=== PATIENT | male | born 1955 | race Caucasian/White ===

== ENCOUNTER 2021-09-19 14:27 | Outpatient (CLI) | payer OTHER, SELFPAY ==
--- NOTE | 2021-09-19 14:45 | CRLHL7_ITS ---
For Patients: As a result of the 21st Century Cures Act, medical imaging exams and procedure reports are released immediately into your electronic medical record. You may view this report before your referring provider. If you have questions, please contact your health care provider. EXAM: PET-CT SKULL BASE TO THIGH CLINICAL INFORMATION: 65-yo male with a history non-small cell lung carcinoma of the left lung/Pancoast tumor. Prior chemoradiation. Current systemic immunotherapy with Durvalumab. Patient is referred for further characterization/response assessment. TECHNIQUE: Radiopharmaceutical: 13.66 mCi of 18F-FDG Uptake time: 60 minutes Blood glucose level at the time of injection: 95 mg/dL Field of view: Skull base to mid-thighs Intravenous contrast: Not administered Oral contrast: Not administered CT protocol: The low-dose, free-breathing, noncontrast CT performed as part of this study is designed for the purposes of attenuation correction and lesion localization, and it is neither sufficient, nor it should be substituted for diagnostic purposes. COMPARISON: CT chest 06/06/2021. PET-CT 02/26/2021 FINDINGS: Physiologic background liver standardized uptake value (SUV mean and SUV max) reported for comparison between PET studies: 2.6 and 3.0. Visualized head and neck: Mildly asymmetric bilateral thyroid uptake is nonspecific, possibly related to thyroiditis. SUV max right thyroid lobe 4.8. Head and neck lymph nodes: No abnormal uptake. Focal nodular uptake adjacent to the distal right clavicle is nonspecific, possibly vascular or a small lymph node, SUV max 3.0. Lungs: Large bilateral apical bullae with scattered fibrotic changes. Persistent focal uptake within a posteromedial pleural based mass in the left upper lobe, 4.7 x 2.2 cm, SUV max 5.5 (fused PET-CT image 71). This mass measured 5.1 x 2.3 cm on the recent comparison chest CT (series 2, image 26). Residual uptake is adjacent to and potentially involving the costovertebral margin of the left 2nd and left posterior 3rd rib suspicious for residual viable tumor. Mild uptake in the adjacent soft tissues is presumed post therapy related. For reference, left upper lobe/apical lung mass measured 6.7 x 3.0 cm on prior PET-CT, SUV max 17.9. -additional lung findings include several sub- 4 mm nodules in the right middle lobe (fused PET-CT image 134) and medial right base (fused PET-CT image 138) without suspicious uptake and not clearly visualized on comparison chest CT. Probably inflammatory. Posteromedial left lower lobe ground-glass opacity with uptake is more than likely inflammatory, SUV max 2.6. Prior anterior pleural-based left upper lobe nodule has resolved in response to targeted radiation therapy. Thoracic lymph nodes: No progressive hypermetabolic mediastinal or hilar lymphadenopathy. Variable uptake within partially calcified paratracheal, subcarinal and hilar/perihilar lymph nodes. For example: -lower right paratracheal lymph node, SUV max 2.8, previously 1.9. -subcarinal lymph node, SUV max 2.1, previously 1.9. -left perihilar rizwana uptake, not measurable, SUV max 3.1., Previously 2.0 Other chest findings: Physiologic myocardial uptake. Scattered coronary vascular and thoracic aortic calcifications. Hepatobiliary: No abnormal uptake. Tiny left lobe hypodensity is too small to fully characterize. Spleen: No abnormal uptake. Pancreas: No abnormal uptake. Adrenals: No abnormal uptake. Kidneys and bladder: No abnormal uptake. Bladder is underdistended giving the appearance of mild wall thickening. Bowel and peritoneum: Increased uptake within the gastric body and fundus is non focal, SUV max 4.6. Uptake is nonspecific, potentially reactive/inflammatory or related to gastritis. Some uptake extends into the lower esophagus without noncontrast CT abnormality. No suspicious small bowel uptake. Similar uptake in the lower anal canal and sphincter level is nonspecific, probably physiologic. Pelvic organs: Moderate prostate enlargement. Midline inferior prostate uptake not present on the prior study likely reflects activity in the prostatic urethra. Milder right paramidline uptake within the prostate apex is nonspecific. Abdominopelvic lymph nodes: No hypermetabolic abdominopelvic lymph nodes. Musculoskeletal, soft tissues, skin: Postradiation change with mild uptake involves the left neck, left posterior shoulder and left anterior chest soft tissues. There are chronic bony changes with sclerosis of the left posterior 3rd rib with mild uptake related to post therapy change, SUV max 2.9. Focal uptake within or adjacent to the costovertebral margin left 2nd rib and costovertebral margin left 3rd rib is suspicious for residual viable disease. For example: -costovertebral margin left 3rd rib, SUV max 5.5 (fused PET-CT image 70). -degenerative-type uptake otherwise involves the shoulders, spine and hips. Other: Diffuse aortoiliac atherosclerotic vascular calcifications. Similar mild infrarenal abdominal aortic aneurysm, 3 2 x 3.2. Prior lower ventral abdomen/right inguinal hernia repair with mesh placement. Fat containing left inguinal hernia. Right hydrocele. IMPRESSION: 1. Post radiation changes involving the left neck, left shoulder and left upper chest with decreased overall size and uptake of a posteromedial left upper lobe/apical lung mass compared to prior PET-CT and mildly decreased size compared to the more recent interval chest CT dated 06/06/2021. Persistent focal uptake adjacent to or involving the costovertebral margin of the left 2nd and left 3rd rib is nonspecific though suspicious for residual viable tumor. 2. Variable mild uptake within mediastinal and hilar/perihilar lymph nodes, some calcified is nonspecific, possibly reactive/inflammatory. No progressive hypermetabolic lymphadenopathy in the chest or axillary regions. 3. No distant sites of tracer avid disease in the neck or solid organs of the upper abdomen. Increased uptake within the body and fundus of the stomach could potentially be reactive/inflammatory or related to gastritis. Attention on follow-up. 4. Mildly asymmetric bilateral thyroid uptake potentially related to thyroiditis in the setting of immunotherapy. 5. Other nonacute findings as detailed in the body of the report. Dictated by Jarad Escalona MD @ 09/22/2021 10:16:16 PM (Electronically Signed)
== END 2021-09-19 14:28 | disposition home or self-care (01) ==
LOC: RAD 14:29
PROVIDERS: PCP Nurse Practitioner Family; Visit Provider Internal Medicine Hematology & Oncology
DX: C34.12 Malignant neoplasm of upper lobe, left bronchus or lung (principal)
CPT/HCPCS: 78815; A9552

== ENCOUNTER 2021-10-02 07:30 | Outpatient (RCR) | payer OTHER, SELFPAY ==
--- OUTSIDE RECORDS SUMMARY | 2021-09-06 14:40 | XMS_ITS | Continuity of Care Document ---
:1955 Author Support Name Relationship Address Phone FARR Unavailable Unavailable Unavailable [facility] Team Providers Name Role Phone ISELA Cid CNP E Primary Care Physician MD Luis Enrique Attending Physician Unavailable Allergies, Adverse Reactions, Alerts No known allergies Social History Smoking Status Unknown if ever smoked Additional Data Assigned Sex Male Problems Active Problems Medical Problem Onset Date Status Non-small cell cancer of left 2020 Active lung Encounter for screening for Active COVID-19 Medications Medication Status Dose Units Route Directions Qty Days Start End Ins tructions Date Date Acetaminophen Active 325-6 MG PO Every 4 100 NO MORE THAN (Tylenol) 325 50 Hours as 400 0 MG/DAY Mg TAB needed Budesonide-Fo Active 2 PUFF INH Twice A Day 15 July rmoterol , Fumarate 2021 (Symbicort) 8:46am 80 Mcg/4.5 Mcg INH Bupropion Hcl Active 300 MG PO Daily 12 August (Wellbutrin , Xl) 300 Mg 2021 TAB 8:22am Cyclobenzapri Active 10 MG PO Three Times 30 ne Hcl A Day as needed Durvalumab Active 500 MG IV As Directed (Imfinzi) 500 as needed Mg/10 Ml INJ Gabapentin Active 100 MG PO Bedtime 90 Levothyroxine Active 100 MCG PO Daily 30 August Sodium 2021 9:03am Lisinopril Active 10 MG PO Daily 30 Magnesium Active 400 MG PO Daily 100 August Oxide 2021 8:50am Zolpidem Active 5 MG PO Bedtime 28 August Tartrate , (Ambien) 5 Mg 2021 TAB 8:51am Gabapentin Discontin 100-2 MG PO Twice A Day 90 August ued 00 2021 8:17am Guaifenesin Discontin 600 MG PO Twice A Day 60 Rc h (Mucinex) 600 ued 30, Mg TABSR 2021 2:00pm Levothyroxine Discontin 50 MCG PO Daily 60 60 July In crease current dose to 50 mcg, 2 - 25 mcg tabs per day. Sodium ued , Will need a n ew prescription with a new pill dosage when 2021 2021 current home s upply is gone. 5:46pm 9:03am Levothyroxine Discontin 50 MCG PO Daily July Ne w prescription dose!! 50 mcg daily. Begin when current Sodium ued , supply of 25 mcg tabs is gone. Take 1 hour before breakfast 2021 2021 on empty stoma ch. 5:46pm 8:17am Levothyroxine Discontin 25 MCG PO Daily 60 60 July Sodium ued , 2021 12:50pm 5:46pm Lorazepam Discontin 0.5-1 MG PO Every 4 March [place] N ued Hours as , Nausea/vomi ti needed for 2021 2021 ng Nausea/Vomi 4:15pm 2:00pm ting Methylprednis Discontin 1 TAB PO As Directed May DIRECTED olone (Medrol ued y , ON P ACKAGE Dosepak) 4 Mg 2021 2021 JOSE 12:07pm 2:00pm Prochlorperaz Discontin 10 MG PO Every 8-12 14 April M arch PRN ine Maleate ued Hours as , Nause a/vomiti needed for 2021 2021 ng Nausea/Vomi 4:15pm 2:00pm ting Senna/Docusat Discontin 1 TAB PO Twice A Day March e Sodium ued , (Senna S) 8.6 2021 2021 Mg/50 Mg TAB 10:04am 2:00pm Procedures Procedure Date Performed Status TTE W/DOPPLER COMPLETE August 14, 2021 completed X-RAY EXAM CHEST 2 VIEWS August 14, 2021 completed MRI BRAIN STEM W/O & W/DYE August 16, 2021 completed SUPPLY August 16, 2021 completed 2D echocardiography with color August 14, 2021 completed flow Doppler imaging XR chest, 2 views August 14, 2021 completed Magnetic resonance imaging of August 16, 2021 completed brain without then with contrast Relevant Diagnostic Tests and/or Laboratory Data Laboratory Results Test Date/Time Result Interpretation Reference Result Comment Performing Range Site White Blood September 05, 7.07 5.00-10.00 [facility] Lab Count 2021 [address] [facility] 2:04pm [place] [address] Red Blood September 05, 4.56 4.32-5.72 [facility] Lab Count 2021 [address] [facility] 2:04pm [place] [address] Hemoglobin September 05, 14.8 13.5-17.5 [facility] Lab 2021 [address] [facility] 2:04pm [place] [address] Hematocrit September 05, 45.3 38.8-50.0 [facility] Lab 2021 [address] [facility] 2:04pm [place] [address] Mean September 05, 99 81-95 [facility] Corpuscular 2021 1999 [facility] Volume 2:04pm [place] [address] Mean September 05, 33 27-34 [facility] Corpuscular 2021 [address] [facility] Hemoglobin 2:04pm [facility] [place] [address] Mean September 05, 33 32-36 [facility] Corpuscular 2021 [address] [facility] Hemoglobin 2:04pm [facility] [place] [address] Concent Platelet Count September 05, 227 150-450 [facility] Lab 2021 [address] [facility] 2:04pm [place] [address] RDW September 05, 13.3 11.5-15.3 [facility] Coefficient of 2021 [address] [facility] Variation 2:04pm [place] [address] Neutrophils September 05, 65.7 50.0-70.0 [facility] (%) (Auto) 2021 1999 [facility] 2:04pm [place] [address] Lymphocytes September 05, 16.1 25.0-45.0 [facility] (%) (Auto) 2021 [address] [facility] 2:04pm [place] [address] Monocytes (%) September 05, 10.9 0.00-11.0 [facility] Lab (Auto) 2021 [address] [facility] 2:04pm [place] [address] Eosinophils September 05, 5.9 0.0-7.0 [facility] (%) (Auto) 2021 [address] [facility] 2:04pm [place] [address] Basophils (%) September 05, 1.3 0.0-3.0 [facility] Lab (Auto) 2021 [address] [facility] 2:04pm [place] [address] Immature September 05, 0.1 [facility] Granulocyte % 2021 1999 [facility] (Auto) 2:04pm [place] [address] Neutrophils # September 05, 4.64 1.70-7.00 [facility] Lab (Auto) 2021 [address] [facility] 2:04pm [place] [address] Lymphocytes # September 05, 1.14 0.90-2.90 [facility] Lab (Auto) 2021 [address] [facility] 2:04pm [place] [address] Monocytes # September 05, 0.77 0.30-0.90 [facility] (Auto) 2021 [address] [facility] 2:04pm [place] [address] Eosinophils # September 05, 0.42 0.00-0.50 [facility] Lab (Auto) 2021 [address] [facility] 2:04pm [place] [address] Basophils # September 05, 0.09 0.00-0.20 [facility] (Auto) 2021 [address] [facility] 2:04pm [place] [address] Immature September 05, 0.01 [facility] Granulocyte # 2021 1999 [facility] (Auto) 2:04pm [place] [address] Random Glucose September 05, 107 60-115 [facility] Lab 2021 [address] [facility] 2:04pm [place] [address] Blood Urea September 05, 21 7-30 [facility] Nitrogen 2021 [address] [facility] 2:04pm [place] [address] Creatinine September 05, 1.0 0.5-1.5 [facility] 2021 [address] [facility] 2:04pm [place] [address] Estimated September 05, 77.777 [facility] Creatinine 2021 [address] [facility] Clearance 2:04pm [place] [address] Sodium Level September 05, 134 135-149 [facility] Lab 2021 [address] [facility] 2:04pm [place] [address] Potassium September 05, 4.3 3.6-5.1 [facility] Level 2021 [address] [facility] 2:04pm [place] [address] Chloride Level September 05, 101 96-114 [facility] 2021 [address] [facility] 2:04pm [place] [address] Carbon Dioxide September 05 20-32 [facility] Level 2021 [address] [facility] 2:04pm [facility] [address] Calcium Level September 05, 9.2 8.4-10.6 [facility] 2021 [address] [facility] 2:04pm [facility] [address] Magnesium July 24, 2.2 1.5-2.6 [facility] Lab Level 2021 [address] [facility] 10:20am [facility] [address] Total Protein September 05, 7.0 6.0-8.3 The use of [facility] Lab 2021 Eltrombopag, a [address] [facility] 2:04pm [place] [address] stimulant used to treat thrombocytopenia and aplastic anemia, interferes with this measurement of total protein. A 5% bias has been observed. Albumin September 05, 4.3 3.3-5.0 [facility] 2021 [address] [facility] 2:04pm [facility] [address] Total September 05, 0.6 0.1-1.5 [facility] Bilirubin 2021 [address] [facility] 2:04pm [facility] [address] Aspartate September 05, 31 12-35 [facility] Amino Transf 2021 1999 [facility] (AST/SGOT) 2:04pm [facility] [address] Alanine September 05 4-50 [facility] Aminotransfera 2021 [address] [facility] se (ALT/SGPT) 2:04pm [facility] [place] [address] Alkaline September 05, 116 40-150 [facility] Phosphatase 2021 [address] [facility] 2:04pm [facility] [address] Thyroid September 05, 48.000 0.270-4.20 Patients taking [facility] Lab Stimulating 2021 0 a high dose [address] [facility] Hormone (TSH) 2:04pm (>5mg/day) of [facility] [address] Biotin supplement (vitamin B7) will demonstrate a >10% negative bias for TSH testing. Free Thyroxine July 24, 0.60 0.70-1.85 [facility] 2021 [address] [facility] 10:20am [place] [address] Free July 24, 1.7 2.5-4.3 [facility] Triiodothyroni 2021 INTERVAL: [address] ne 10:20am Triiodothyronine [facility] [address] , Free (Free T3)Access complete set of age- and/or gender-specific referenceinterva ls for this test in the [employer] Test Directory([employer]).Performed By: [employer] [place] [address] [id number] Director: Tamara Larkin MD Cortisol AM August 21.4 INTERPRETIVE Apropose Sample 2021 INFORMATION: [address] 7:54am Cortisol, Serum6 [facility] [address] a.m. - 10 a.m. reference interval: 6.0 - 18.4 ug/dL4 p.m. - 8 p.m. reference interval: 2.7 - 10.5 ug/dL8 hrs post 1 mg dexamethasone given at midnight: 0.0 - 5.0 ug/dLNormal peak serum cortisol is greater than 18.0 ug/dL at 30 or60 minutes after 250 micrograms of cosyntropin I.V.Performed By: [facility] [place] [address] [id number] Director: Tamara Larkin MD Diagnostic Imaging Reports Report Dictated Date/Time Dictated By Status August 14, 2021 2:48pm Lala White MD [address] IMAG[address]~ Patient: OSBALDO MENDEZ MR #: [id number] : 1955 Age: 65 Sex: Amena Taveras MD: REY BERNARD MD Rm/B ed: Loc: RAD Report #: [id number] RAD/ EST, 2V Date: 08/14/21 Signed For Patients: As a result of the entury Cures Act, medical imaging exams and procedure reports are release d immediately into your electronic medical record. You may view this repo rt before your referring provider. If you have questions, please contact y our health care provider. INDICATION: Lung cancer COMPARISON: June 06, [address] FINDINGS AND IMPRESSION: Normal size of the cardiomediastinal si lhouette and pulmonary vasculature. There is redemonstration of large blebs within the left greater than right lung apices. Mild hazy opacities withi n the right greater than left mid to lower lung vance. Post chemo radiation changes to the left upper lobe mass with extension into the left posterior upper thorax soft tissues better demonstrated on CT. Redemonstrated business process associate ruiz changes to the left posterior 3rd rib with probable nondisplaced path ologic fracture. Dictated by Lala Leonardo MD @ 8:52:15 PM (Electronically Signed) Dictated By: LALA LEONARDO MD Signed By: LALA LEONARDO MD Report Dictated Date/Time Dictated By Status August 16, 2021 3:37pm Sylvester Orozco [address] IMAG[address]~ Patient: OSBALDO MENDEZ MR #: [id number] : 1955 Age: 65 Sex: M Ordering MD: REY BERNARD MD Rm/B ed: Loc: MRI Report #: [id number] MRI/BR AIN W/WO CONTRAST Date: 08/16/21 Signed For Patients: As a result of the entury Cures Act, medical imaging exams and procedure reports are release d immediately into your electronic medical record. You may view this repo rt before your referring provider. If you have questions, please contact y our health care provider. INDICATION: Lung cancer TECHNIQUE: Noncontrast Sagittal T1,Axial FSE T2, F lair, DWI, post contrast axial and coronal T1W images submitted. Compared to prior study from March 25, 2021 FINDINGS: Mild cerebral atrophy. The ventricles, sulci and gyri are of normal size, shape and contour for age and degree of atrophy. Midline structures are centrally located. No convincing eviden ce of suspicious intra- or extra-axial fluid collections. Mild pat chuck regions of increased T2 signal within the central pontine, periventric ular and subcortical white matter of both cerebral hemispheres. No regions o f restricted diffusion or suspicious regions of abnormal parenchymal enhance ment. There is a better visualized, incidental 3 millimeter T1 hyperintense lesion dorsal to the infundibulum inferior to the optic chiasm that may r epresent a tiny lipoma or dermoid. IMPRESSION: 1. Stable no radiographic evidence of a cute intracranial abnormalities. 2. Mild cerebral atrophy. 3. Better visualized, incidental tiny f ocus signal abnormality dorsal to the infundibulum that may represent pre sence of a tiny dermoid or lipoma. 4. Mild supratentorial and central pont ine white matter changes that are non-specific, but statistically most li alexx related to chronic small vessel ischemic disease. Dictated by Bang Orozco MD @ 2 10:14:58 AM (Electronically Signed) Dictated By: Sylvester Orozco DO Signed By: __ Sylvester Orozco DO Insurance Providers Guarantor Osbaldo Mendez Address [address] [place] [address] Contact Info. Home Phone: Payer Policy Id Coverage Id Subscriber's Subscriber Id Effective E xpiration Name Date Date [employer] [id number] Tristen Mendez Choice Encounters Encounter Location(s) Arrival/Admit Date Discharge/Depart Date Provider(s) Registered [place] September 05, 2021 [facility] 6:56am Registered [place] August 16, [address] [facility] 1:52pm Registered [place] August 14, [address] [facility] 2:00pm Plan of Treatment Future Tests Future scheduled test information is unavailable Pending Tests Test Name Date ordered Cortisol AM Sample September 05, 2021 2:04pm Future Visits Future appointment information is unavailable Referrals to Other Providers Referral information is unavailable Future Procedures Future procedure information is unavailable Future Medications Future medication information is unavailable Patient Instructions Dexamethasone (By injection) Palonosetron (By injection) Famotidine (By injection) Diphenhydramine (By injection)
[2021-09-18 09:27] LABS: Basophils Absolute Auto 0.07 K/uL (0.00-0.30); Basophils Percent Auto 0.8 % (0.0-3.0); Eosinophils Absolute Auto 0.38 K/uL (0.00-0.50); Eosinophils Percent Auto 4.4 % (0.0-7.0); Hematocrit 45.7 % (37.0-53.0); Hemoglobin* 14.9 gm/dL (13.5-17.5); Immature Granulocytes Abs Auto 0.04 K/uL (0.00-0.30); Lymphocytes Percent Auto 15.2 % (20-44); Mean Corpuscular HGB Conc 33 gm/dL (32-36); Mean Corpuscular Hemoglobin 32 pg (26-34); Mean Corpuscular Volume 98 fL (80-100); Monocytes Percent Auto 7.7 % (0.0-11.0); Neutrophils Absolute Auto 6.09 K/uL (1.7-7.0); Neutrophils Percent Auto 71.4 % (42.0-72.0); Platelet Count* 262 K/uL (140-440); RDW Coefficient of Variation % 13.1 % (11.5-15.5); Red Blood Count 4.67 m/uL (4.30-5.90); White Blood Count* 8.54 K/uL (4.50-11.00)
[2021-09-18 09:33] LABS: Slide Review Reflex No
[2021-09-18 09:43] VITALS: BP 124/80; PULSE 72; RESP 16; TEMP 36.3; O2SAT 96
[2021-09-18 09:48] LABS: Chloride* 103 mmol/L (96-114)
[2021-09-18 09:50] LABS: Albumin* 4.3 g/dL (3.3-5.0); Sodium* 136 mmol/L (135-149)
[2021-09-18 09:51] LABS: Carbon Dioxide* 28 mmol/L (20-32); Creatinine* 0.9 mg/dL (0.5-1.5); Est. Creatinine Clearance* 76.35; Estimated Glomerular Filt Rate 93.61
[2021-09-18 09:52] LABS: Alanine Aminotransferase* 21 U/L (4-50); Alkaline Phosphatase* 110 U/L (40-150); Aspartate Amino Transferase* 24 U/L (12-35); Bilirubin Total* 0.4 mg/dL (0.1-1.5); Blood Urea Nitrogen* 18 mg/dL (7-30); Calcium* 9.5 mg/dL (8.4-10.6); Glucose* 107 mg/dL (60-115)
[2021-09-18 11:37] LABS: SARS PCR* Negative SARS-CoV-2 (Negative)
[2021-09-19 20:30] LABS: Cortisol, Serum 10.5 ug/dL
--- NOTE | 2021-09-23 15:16 | URNOTE ---
Received request for prior auth for Durvalumab ([id number]). Thes has been approved for 1 dose, 10/02/21-10/16/2021. Auth #[id number]
[2021-10-02 08:13] LABS: Basophils Absolute Auto 0.07 K/uL (0.00-0.30); Basophils Percent Auto 1.2 % (0.0-3.0); Eosinophils Absolute Auto 0.31 K/uL (0.00-0.50); Eosinophils Percent Auto 5.3 % (0.0-7.0); Hematocrit 45.1 % (37.0-53.0); Immature Granulocytes Abs Auto 0.02 K/uL (0.00-0.30); Lymphocytes Percent Auto 18.3 % (20-44); Mean Corpuscular HGB Conc 33 gm/dL (32-36); Mean Corpuscular Hemoglobin 32 pg (26-34); Mean Corpuscular Volume 96 fL (80-100); Neutrophils Absolute Auto 3.86 K/uL (1.7-7.0); Neutrophils Percent Auto 65.9 % (42.0-72.0); Platelet Count* 232 K/uL (140-440); RDW Coefficient of Variation % 13.3 % (11.5-15.5); Red Blood Count 4.68 m/uL (4.30-5.90); White Blood Count* 5.86 K/uL (4.50-11.00)
[2021-10-02 08:27] LABS: Slide Review Reflex No
[2021-10-02 08:30] LABS: Albumin* 4.1 g/dL (3.3-5.0); Chloride* 106 mmol/L (96-114)
[2021-10-02 08:31] LABS: Potassium* 4.8 mmol/L (3.6-5.1); Sodium* 134 mmol/L (135-149)
[2021-10-02 08:33] LABS: Aspartate Amino Transferase* 30 U/L (12-35); Bilirubin Total* 0.5 mg/dL (0.1-1.5); Blood Urea Nitrogen* 20 mg/dL (7-30); Carbon Dioxide* 22 mmol/L (20-32); Creatinine* 0.9 mg/dL (0.5-1.5); Est. Creatinine Clearance* 76.35; Estimated Glomerular Filt Rate 94 ml/min; Total Protein* 6.6 g/dL (6.0-8.3)
[2021-10-02 08:34] LABS: Alanine Aminotransferase* 20 U/L (4-50); Alkaline Phosphatase* 116 U/L (40-150); Calcium* 9.3 mg/dL (8.4-10.6); Glucose* 106 mg/dL (60-115)
[2021-10-02] MEDS: 0.9 % SODIUM CHLORIDE 250 ml IV (15:32)
[2021-10-02] MEDS: SODIUM CHLORIDE 0.9 % (FLUSH) 10 ML SYRINGE IVF (15:33)
[2021-10-03 15:42] LABS: Cortisol, Serum 6.3 ug/dL
--- NOTE | 2021-10-08 07:13 | URNOTE ---
Request for continued prior authorization of Durvalumab [id number]. Patient carries [employer] as primary insurance. Per [facility] Durvalumab 810 mg has be approved for 6 doses from 10/16/2021 through 01/08/2022. Authorization #[id number]
== END 2021-10-13 23:59 | disposition home or self-care (01) ==
LOC: CCIC 07:30
PROVIDERS: Clinical Nurse Specialist; PCP Nurse Practitioner Family; Visit Provider Internal Medicine Hematology & Oncology
DX: C34.12 Malignant neoplasm of upper lobe, left bronchus or lung (principal); E03.2 Hypothyroidism due to medicaments and other exogenous substances
CPT/HCPCS: 36415; 80053; 82533; 84443; 85025; 87635; 96413; 99212; 99215; J7050; J9173

== ENCOUNTER 2021-10-30 07:54 | Outpatient (CLI) | payer OTHER, SELFPAY ==
--- NOTE | 2021-10-30 08:15 | CRLHL7_ITS ---
For Patients: As a result of the Century Cures Act, medical imaging exams and procedure reports are released immediately into your electronic medical record. You may view this report before your referring provider. If you have questions, please contact your health care provider. INDICATION: Sudden increase in LFTs, epigastric pain, history of lung cancer and chemo and radiation for PE TECHNIQUE: Ultrasound abdomen limited. Sonographic images of the right upper quadrant were obtained using lux-scale and color Doppler images. COMPARISON: None FINDINGS: Liver: Hepatomegaly of 19.3 centimeters with normal echotexture. No masses. No intrahepatic biliary dilatation. Gallbladder: No stones or sludge. Normal wall thickness. No pericholecystic fluid. Common bile duct: 7 mm. Pancreas: Suboptimally visualized. Right kidney: 10.7 cm. Normal echotexture and cortex. No masses, stones, or hydronephrosis. Vasculature: The mid abdominal aorta measures up to 4.0 centimeters. IMPRESSION: Hepatomegaly with normal liver parenchymal pattern. No evidence for liver masses. Normal appearing gallbladder. Common bile duct the upper limits of normal at 7 millimeters. No intrahepatic biliary duct dilatation. Dilated mid abdominal aorta 4.0 centimeters. One year follow-up and vascular consultation recommended. Dictated by Ren Boyce MD @ 10/30/2021 9:03:11 AM (Electronically Signed)
== END 2021-10-30 07:55 | disposition home or self-care (01) ==
PROVIDERS: PCP Nurse Practitioner Family; Visit Provider Clinical Nurse Specialist
DX: R74.01 Elevation of levels of liver transaminase levels (principal); I77.811 Abdominal aortic ectasia; R10.13 Epigastric pain
CPT/HCPCS: 76705

== ENCOUNTER 2021-12-02 15:19 | Outpatient (CLI) | payer OTHER, SELFPAY ==
--- NOTE | 2021-12-02 15:30 | CRLHL7_ITS ---
For Patients: As a result of the Century Cures Act, medical imaging exams and procedure reports are released immediately into your electronic medical record. You may view this report before your referring provider. If you have questions, please contact your health care provider. INDICATION: Abnormal liver function tests; stage IV lung cancer. COMPARISON: Ultrasound examination of the right upper quadrant of the abdomen 10/30/2021. TECHNIQUE: Precontrast T1 and T2 weighted imaging; T2 haste imaging; diffusion weighted imaging; in and out of phase imaging; postcontrast imaging. FINDINGS: No focal hepatic or splenic pathology. Small sub cm cyst segment 4 of the liver. No evidence of metastatic disease within the liver. No pancreatic pathology. Gallbladder is unremarkable. No adrenal pathology. Kidneys are unremarkable. Infrarenal abdominal aortic aneurysm measuring 3.6 cm in diameter with evidence of mural thrombus. no retroperitoneal lymphadenopathy. No evidence of abdominal ascites. Impression: 1. Infrarenal abdominal aortic aneurysm measuring 3.6 cm in diameter. 2. Sub centimeter cyst segment 4 of the liver 3. No evidence of metastatic disease. Dictated by Isabel Villa MD @ 12/03/2021 2:13:51 PM (Electronically Signed)
== END 2021-12-02 15:20 | disposition home or self-care (01) ==
LOC: MRI 15:19
PROVIDERS: PCP Nurse Practitioner Family; Visit Provider Internal Medicine Hematology & Oncology
DX: C34.12 Malignant neoplasm of upper lobe, left bronchus or lung (principal); R74.01 Elevation of levels of liver transaminase levels; I71.4 Abdominal aortic aneurysm, without rupture; K76.89 Other specified diseases of liver; R10.13 Epigastric pain
CPT/HCPCS: 74183; A9575

== ENCOUNTER 2022-01-20 14:16 | Outpatient (CLI) | payer OTHER, SELFPAY ==
--- NOTE | 2022-01-20 14:30 | CRLHL7_ITS ---
For Patients: As a result of the Century Cures Act, medical imaging exams and procedure reports are released immediately into your electronic medical record. You may view this report before your referring provider. If you have questions, please contact your health care provider. EXAMINATION: MRI BRAIN WITH AND WITHOUT CONTRAST DATE: 01/20/2022 HISTORY: Patient with cancer. TECHNIQUE: Multi-sequence, multiplanar MRI examination of the brain with and without contrast was performed. COMPARISON: 08/16/2021. FINDINGS: There is no restricted diffusion in the brain to indicate the presence of acute ischemia. There are scattered foci of T2/FLAIR signal hyperintensity in the periventricular and subcortical white matter, likely related to microangiopathic changes. There is diffuse prominence of the CSF spaces, consistent with diffuse parenchymal volume loss. There is no abnormal enhancement in the brain. There is an unchanged 3.5mm T1 hyperintense lesion dorsal to the pituitary stalk. The orbits are unremarkable. The paranasal sinuses demonstrate moderate ethmoid air cell mucosal thickening. The mastoid air cells are clear. The calvarium is unremarkable. IMPRESSION: 1. No acute ischemia or abnormal enhancement in the brain to indicate the presence of metastatic disease. 2. Mild microangiopathic changes and diffuse parenchymal volume loss. 3. Unchanged 3.5mm T1 hyperintense lesion dorsal to the pituitary stalk may represent an incidental lipoma or dermoid. Dictated by: Jocelyne Stein MD @ 01/21/2022 05:46:53 (Electronically Signed)
== END 2022-01-20 14:17 | disposition home or self-care (01) ==
LOC: MRI 14:16
PROVIDERS: PCP Nurse Practitioner Family; Visit Provider Internal Medicine Hematology & Oncology
DX: C34.92 Malignant neoplasm of unspecified part of left bronchus or lung (principal)
CPT/HCPCS: 70553; A9575

== ENCOUNTER 2022-01-23 14:09 | Outpatient (CLI) | payer OTHER, SELFPAY ==
--- NOTE | 2022-01-23 14:15 | CRLHL7_ITS ---
For Patients: As a result of the 21st Century Cures Act, medical imaging exams and procedure reports are released immediately into your electronic medical record. You may view this report before your referring provider. If you have questions, please contact your health care provider. EXAM: PET-CT SKULL BASE TO THIGH CLINICAL INFORMATION: 66-yo male with a history of non-small cell lung carcinoma of the left lung/Pancoast tumor. Prior chemo radiation. Immunotherapy.. Patient is referred for further characterization. TECHNIQUE: Radiopharmaceutical: 12.55 mCi of 18F-FDG Uptake time: 60 minutes Blood glucose level at the time of injection: 92 mg/dL Field of view: Skull base to mid-thighs Intravenous contrast: Not administered Oral contrast: Not administered CT protocol: The low-dose, free-breathing, noncontrast CT performed as part of this study is designed for the purposes of attenuation correction and lesion localization, and it is neither sufficient, nor it should be substituted for diagnostic purposes. COMPARISON: PET-CT 09/19/2021 FINDINGS: Physiologic background liver standardized uptake value (SUV mean and SUV max) reported for comparison between PET studies: 2.3 and 2.8. Visualized head and neck: Physiologic uptake in the visualized portions of the brain and salivary glands. Similar mild bilateral thyroid uptake nonsignificant Pure for example: Right thyroid lobe SUV max 4.0. Previously 4.8. Head and neck lymph nodes: No hypermetabolic upper cervical chain lymph nodes. Increased uptake within a small superior right shoulder lymph node bordering the distal right clavicle, 0.7 cm short axis, SUV max 18.7 (fused PET-CT image 52). Previously 0.3 cm short axis, SUV max 3.0. Consider directed ultrasound. Lungs: Large apical/upper lobe bullae. No new tracer avid lung nodules or hypermetabolic pulmonary mass lesions. Decreased uptake within a posterior medial left upper lobe pleural based lesion, 3.3 x 1.7 cm ,SUV max 1.8 (fused PET-CT image 69). Previously SUV max 4.9. Persistent focal right posterior apical uptake may represent scar/fibrosis between large upper lobe bullae, SUV max 3.2 (fused PET-CT image 73). Previously 2.3. Attention on follow-up. Similar bandlike parenchymal density posterior medial left upper lobe bordering the descending arch is nonspecific, possibly reactive/inflammatory, SUV max 3.9. Previously 3.5. Thoracic lymph nodes: Variable uptake within nonenlarged calcified and noncalcified mediastinal lymph nodes. For example: -lower right paratracheal lymph node, 0.6 cm short axis, SUV max 2.4. Previously 3.1. -subcarinal lymph node, 0.6 cm short axis, SUV max 2.5. Previously 2.1. -left hilar rizwana uptake, not measurable, SUV max 3.1. Previously 3.1. Other chest findings: Physiologic myocardial uptake. Scattered coronary vascular and thoracic aortic calcifications. Residual generalized uptake in the left posterior lower neck soft tissues and upper left chest soft tissues most likely related to post radiation changes. Hepatobiliary: Tiny focal uptake near the dome of the right hepatic lobe with no associated noncontrast CT abnormality is nonspecific, possibly artifact, SUV max 3.1 (fused PET-CT image 142). Attention on follow-up Spleen: No abnormal uptake. Pancreas: No abnormal uptake. Adrenals: No abnormal uptake. Kidneys and bladder: No abnormal uptake. Bowel and peritoneum: Residual generalized uptake within the body and fundus of the stomach, SUV max 4.2 similar to prior. Nonspecific, reactive/inflammatory or related to gastritis. No suspicious small or large bowel uptake. Pelvic organs: Moderate prostate enlargement with resolved midline uptake near the apex. Mildly decreased right paramidline apical uptake, SUV max 4.4. Previously 5.3. Nonspecific. Abdominopelvic lymph nodes: No hypermetabolic abdominopelvic lymph nodes. Musculoskeletal, soft tissues, skin: No new tracer avid osseous lesions. Prior uptake within or along the posterior costovertebral margin of the left 2nd and 3rd ribs has resolved most compatible with post treatment changes. Degenerate type uptake within the shoulders, spine and hips. Other: Diffuse aortoiliac atherosclerotic vascular calcifications. Similar mild infrarenal abdominal aortic aneurysm, 3.4 cm. Prior ventral abdominal wall/right inguinal hernia repair with mesh placement. Fat containing left inguinal hernia. Right hydrocele. IMPRESSION: 1. Decreased uptake within a posterior medial left upper lobe pleural-based lesion with associated decreased activity in the adjacent costovertebral margins of the left posterior 2nd and 3rd ribs compatible with post therapy changes. Residual generalized uptake in the upper left chest soft tissues and left posterior neck base soft tissues likely reflects postradiation changes. 2. Increased uptake within a nonenlarged superior right shoulder lymph node bordering the distal right clavicle. Recommend directed ultrasound with FNA as indicated. 3. Tiny focus of uptake near the dome of the right hepatic lobe is without associated noncontrast CT abnormality and considered nonspecific, possibly artifact. No suspicious solid organ uptake in the abdomen/pelvis is otherwise evident. Residual generalized uptake in the body and fundus of the stomach is nonspecific, possibly reactive/inflammatory. 4. No new tracer avid osseous lesions. 5. Other nonacute findings as detailed in the body of the report. Dictated by Jarad Escalona MD @ 01/28/2022 10:24:06 PM (Electronically Signed)
== END 2022-01-23 14:10 | disposition home or self-care (01) ==
LOC: RAD 14:09
PROVIDERS: PCP Nurse Practitioner Family; Visit Provider Physician Assistant
DX: C34.12 Malignant neoplasm of upper lobe, left bronchus or lung (principal); R59.0 Localized enlarged lymph nodes
CPT/HCPCS: 78815; A9552

== ENCOUNTER 2022-02-11 09:56 | Outpatient (CLI) | payer OTHER, SELFPAY ==
--- NOTE | 2022-02-11 10:15 | CRLHL7_ITS ---
For Patients: As a result of the Century Cures Act, medical imaging exams and procedure reports are released immediately into your electronic medical record. You may view this report before your referring provider. If you have questions, please contact your health care provider. ULTRASOUND-GUIDED RIGHT POSTERIOR SHOULDER LYMPH NODE BIOPSY CLINICAL HISTORY: HISTORY OF LUNG CANCER. ABNORMAL UPTAKE IN RIGHT POSTERIOR SHOULDER LYMPH NODE. COMPARISON STUDIES: CT-PET 09/19/2021 TECHNIQUE: Real-time ultrasound with image documentation was used for targeting the lymph node lesion. Core biopsy specimens were obtained using an automated gun with a 18-gauge biopsy needle. CONSENT and TIME OUT: The procedure, risks, and alternatives were explained to the patient and a consent was signed. [facility] Protocol was followed including pre-procedure verification that relevant information/documentation was available, reviewed and properly matched to the patient; consent accurate and complete; and equipment and supplies available. Time Out was conducted just prior to starting procedure to verify the four required elements: patient identity, correct side/site marked (if applicable), procedure, relevant images/results properly labeled and displayed (if applicable). PROCEDURE: The patient was positioned prone on the ultrasound table. The right posterior shoulder was prepped with ChloraPrep. 8 cc 1 percent lidocaine used for local anesthesia. Core samples were obtained. A sterile metal biopsy clip was placed percutaneously to [place] the lesion position within the right posterior shoulder soft tissues. The specimens were placed in 10% formalin and sent to the pathology department. Pressure was held on the biopsy site until all bleeding subsided. The skin incision was closed with Steri-Strips. An ice pack was positioned over the biopsy site. Post-biopsy instructions were reviewed with the patient, and a written copy was given to him. LATERALITY: Right posterior shoulder lymph node LESION: Hypoechoic lymph node measuring 1.2 x 1.2 x 0.9 cm. SUSPICION FOR MALIGNANCY: High, given the abnormal uptake on recent CT-PET. NUMBER OF SAMPLES: 5 BIOPSY CLIP SHAPE: Ribbon PROXIMITY OF CLIP TO TARGET: Within the lesion IMPRESSION: Ultrasound-guided right posterior shoulder lymph node biopsy. Dictated by Ren Long MD @ 02/11/2022 11:22:56 AM (Electronically Signed)
== END 2022-02-11 09:57 | disposition home or self-care (01) ==
LOC: US 09:57
PROVIDERS: PCP Nurse Practitioner Family; Visit Provider Clinical Nurse Specialist
DX: C34.92 Malignant neoplasm of unspecified part of left bronchus or lung (principal); R59.0 Localized enlarged lymph nodes
CPT/HCPCS: 20206; 76942; 88305; 88313; 88341; 88342; A4648; A4649

== ENCOUNTER 2022-04-02 14:30 | Outpatient (RCR) | payer OTHER, SELFPAY ==
[2021-10-16 13:45] LABS: Basophils Absolute Auto 0.05 K/uL (0.00-0.30); Basophils Percent Auto 0.5 % (0.0-3.0); Eosinophils Absolute Auto 0.34 K/uL (0.00-0.50); Eosinophils Percent Auto 3.2 % (0.0-7.0); Hematocrit 47.7 % (37.0-53.0); Hemoglobin* 15.6 gm/dL (13.5-17.5); Immature Granulocytes Abs Auto 0.02 K/uL (0.00-0.30); Lymphocytes Percent Auto 12.3 % (20-44); Mean Corpuscular HGB Conc 33 gm/dL (32-36); Mean Corpuscular Hemoglobin 31 pg (26-34); Mean Corpuscular Volume 95 fL (80-100); Monocytes Percent Auto 7.4 % (0.0-11.0); Neutrophils Percent Auto 76.4 % (42.0-72.0); Platelet Count* 278 K/uL (140-440); RDW Coefficient of Variation % 13.5 % (11.5-15.5); Red Blood Count 5.03 m/uL (4.30-5.90); White Blood Count* 10.74 K/uL (4.50-11.00)
[2021-10-16 13:48] VITALS: BP 120/70; PULSE 78; RESP 16; TEMP 36.2; O2SAT 96
[2021-10-16 14:07] LABS: Albumin* 4.2 g/dL (3.3-5.0); Chloride* 105 mmol/L (96-114); Potassium* 4.5 mmol/L (3.6-5.1); Sodium* 138 mmol/L (135-149)
[2021-10-16 14:09] LABS: Creatinine* 0.8 mg/dL (0.5-1.5); Estimated Glomerular Filt Rate 96 ml/min
[2021-10-16 14:10] LABS: Alanine Aminotransferase* 20 U/L (4-50); Alkaline Phosphatase* 120 U/L (40-150); Aspartate Amino Transferase* 23 U/L (12-35); Bilirubin Total* 0.3 mg/dL (0.1-1.5); Blood Urea Nitrogen* 18 mg/dL (7-30); Calcium* 9.4 mg/dL (8.4-10.6); Carbon Dioxide* 27 mmol/L (20-32); Glucose* 110 mg/dL (60-115); Total Protein* 7.2 g/dL (6.0-8.3)
[2021-10-16 14:28] LABS: Slide Review Reflex No
[2021-10-18 03:39] LABS: Cortisol, Serum 9.8 ug/dL
[2021-10-29 12:31] LABS: Basophils Absolute Auto 0.05 K/uL (0.00-0.30); Basophils Percent Auto 0.6 % (0.0-3.0); Eosinophils Absolute Auto 0.24 K/uL (0.00-0.50); Eosinophils Percent Auto 2.9 % (0.0-7.0); Hematocrit 44.3 % (37.0-53.0); Hemoglobin* 14.6 gm/dL (13.5-17.5); Immature Granulocytes Abs Auto 0.05 K/uL (0.00-0.30); Lymphocytes Percent Auto 12.8 % (20-44); Mean Corpuscular HGB Conc 33 gm/dL (32-36); Mean Corpuscular Hemoglobin 31 pg (26-34); Mean Corpuscular Volume 94 fL (80-100); Monocytes Percent Auto 10.2 % (0.0-11.0); Neutrophils Percent Auto 72.9 % (42.0-72.0); Platelet Count* 279 K/uL (140-440); RDW Coefficient of Variation % 13.5 % (11.5-15.5); Red Blood Count 4.73 m/uL (4.30-5.90); White Blood Count* 8.14 K/uL (4.50-11.00)
[2021-10-29 12:32] LABS: Slide Review Reflex No
[2021-10-29 12:47] LABS: Albumin* 3.6 g/dL (3.3-5.0); Chloride* 102 mmol/L (96-114); Sodium* 134 mmol/L (135-149)
[2021-10-29 12:49] LABS: Amylase* 52 U/L (18-89); Carbon Dioxide* 27 mmol/L (20-32); Creatinine* 0.8 mg/dL (0.5-1.5); Estimated Glomerular Filt Rate 96 ml/min; Lipase* 59 U/L (23-300)
[2021-10-29 12:50] LABS: Alanine Aminotransferase* 101 U/L (4-50); Alkaline Phosphatase* 212 U/L (40-150); Aspartate Amino Transferase* 73 U/L (12-35); Bilirubin Total* 0.5 mg/dL (0.1-1.5); Blood Urea Nitrogen* 25 mg/dL (7-30); Glucose* 110 mg/dL (60-115); Total Protein* 6.4 g/dL (6.0-8.3)
[2021-10-30 08:45] VITALS: BP 134/75; PULSE 76; RESP 16; TEMP 35.8; O2SAT 94
[2021-10-30 09:50] VITALS: BP 126/81; BP 128/79; PULSE 78; PULSE 84
[2021-10-30] MEDS: 0.9 % SODIUM CHLORIDE 1000 ml 1,000 ML IV (09:55)
[2021-10-31 15:04] LABS: Hepatitis B Core Antibody, IgM Negative (Negative); Hepatitis B Surface Antigen Negative (Negative); Hepatitis C Antibody by CIA Negative (Negative)
[2021-11-05 11:56] LABS: Albumin* 3.7 g/dL (3.3-5.0)
[2021-11-05 11:58] LABS: Total Protein* 6.5 g/dL (6.0-8.3)
[2021-11-05 11:59] LABS: Alanine Aminotransferase* 235 U/L (4-50); Alkaline Phosphatase* 537 U/L (40-150); Aspartate Amino Transferase* 93 U/L (12-35); Bilirubin Direct* 0.2 mg/dL (0.0-0.5); Bilirubin Total* 0.4 mg/dL (0.1-1.5)
[2021-11-05 16:14] LABS: Amylase* 67 U/L (18-89); Lipase* 192 U/L (23-300)
[2021-11-12 15:05] LABS: Albumin* 3.4 g/dL (3.3-5.0)
[2021-11-12 15:08] LABS: Alkaline Phosphatase* 525 U/L (40-150); Aspartate Amino Transferase* 53 U/L (12-35); Bilirubin Direct* 0.2 mg/dL (0.0-0.5); Bilirubin Total* 0.3 mg/dL (0.1-1.5); Total Protein* 6.1 g/dL (6.0-8.3)
[2021-11-12 15:09] LABS: Alanine Aminotransferase* 131 U/L (4-50)
--- NOTE | 2021-11-13 16:28 | ONC.NURNOTE ---
Patient called with results of LFT's noting that they have improved. Patient told that Dr. lopez reviewed numbers and at this time plan is for a prednisone taper and weekly LFT draws until number down. Patient also asking for pain medicine since he can't take tylenol so Tramadol prescription put in as well.
[2021-11-19 16:04] LABS: Albumin* 3.6 g/dL (3.3-5.0)
[2021-11-19 16:07] LABS: Alkaline Phosphatase* 288 U/L (40-150); Aspartate Amino Transferase* 35 U/L (12-35); Bilirubin Direct* 0.2 mg/dL (0.0-0.5); Bilirubin Total* 0.3 mg/dL (0.1-1.5); Total Protein* 6.3 g/dL (6.0-8.3)
[2021-11-19 16:08] LABS: Alanine Aminotransferase* 68 U/L (4-50)
[2021-12-03 15:33] LABS: Bilirubin Direct* 0.2 mg/dL (0.0-0.5); Bilirubin Total* 0.5 mg/dL (0.1-1.5); Total Protein* 6.5 g/dL (6.0-8.3)
[2021-12-03 15:34] LABS: Alanine Aminotransferase* 29 U/L (4-50); Alkaline Phosphatase* 164 U/L (40-150); Aspartate Amino Transferase* 28 U/L (12-35)
[2021-12-24 15:19] LABS: Basophils Absolute Auto 0.04 K/uL (0.00-0.30); Basophils Percent Auto 0.5 % (0.0-3.0); Eosinophils Absolute Auto 0.25 K/uL (0.00-0.50); Eosinophils Percent Auto 3.4 % (0.0-7.0); Hematocrit 39.7 % (37.0-53.0); Immature Granulocytes Abs Auto 0.08 K/uL (0.00-0.30); Lymphocytes Absolute Auto 1.67 K/uL (0.90-2.90); Lymphocytes Percent Auto 22.6 % (20-44); Mean Corpuscular HGB Conc 33 gm/dL (32-36); Mean Corpuscular Hemoglobin 31 pg (26-34); Mean Corpuscular Volume 93 fL (80-100); Monocytes Percent Auto 8.6 % (0.0-11.0); Neutrophils Absolute Auto 4.72 K/uL (1.7-7.0); Neutrophils Percent Auto 63.8 % (42.0-72.0); Platelet Count* 242 K/uL (140-440); RDW Coefficient of Variation % 14.8 % (11.5-15.5); Red Blood Count 4.26 m/uL (4.30-5.90)
[2021-12-24 15:20] LABS: Slide Review Reflex No
[2021-12-24 15:36] LABS: Albumin* 4.1 g/dL (3.3-5.0); Chloride* 103 mmol/L (96-114)
[2021-12-24 15:37] LABS: Potassium* 4.4 mmol/L (3.6-5.1); Sodium* 136 mmol/L (135-149)
[2021-12-24 15:39] LABS: Alkaline Phosphatase* 115 U/L (40-150); Aspartate Amino Transferase* 19 U/L (12-35); Bilirubin Total* 0.4 mg/dL (0.1-1.5); Blood Urea Nitrogen* 23 mg/dL (7-30); Carbon Dioxide* 26 mmol/L (20-32); Creatinine* 0.9 mg/dL (0.5-1.5); Estimated Glomerular Filt Rate 93 ml/min; Total Protein* 6.6 g/dL (6.0-8.3)
[2021-12-24 15:40] LABS: Alanine Aminotransferase* 18 U/L (4-50); Calcium* 9.6 mg/dL (8.4-10.6); Glucose* 94 mg/dL (60-115)
[2021-12-25 15:09] VITALS: BP 114/70; PULSE 80; RESP 16; TEMP 36.3
[2021-12-26 12:37] LABS: Alpha Fetoprotein Tumor Marker 2 ng/mL (0-9)
[2021-12-27 04:13] LABS: Cortisol, Serum 4.2 ug/dL
[2022-01-07 15:37] LABS: Albumin* 4.3 g/dL (3.3-5.0); Chloride* 104 mmol/L (96-114); Sodium* 134 mmol/L (135-149)
[2022-01-07 15:38] LABS: Potassium* 4.7 mmol/L (3.6-5.1)
[2022-01-07 15:40] LABS: Aspartate Amino Transferase* 19 U/L (12-35); Basophils Absolute Auto 0.03 K/uL (0.00-0.30); Basophils Percent Auto 0.4 % (0.0-3.0); Bilirubin Total* 0.5 mg/dL (0.1-1.5); Carbon Dioxide* 24 mmol/L (20-32); Creatinine* 0.9 mg/dL (0.5-1.5); Eosinophils Absolute Auto 0.02 K/uL (0.00-0.50); Eosinophils Percent Auto 0.3 % (0.0-7.0); Estimated Glomerular Filt Rate 93 ml/min; Hemoglobin* 13.2 gm/dL (13.5-17.5); Immature Granulocytes Abs Auto 0.06 K/uL (0.00-0.30); Lymphocytes Percent Auto 17.2 % (20-44); Mean Corpuscular HGB Conc 32 gm/dL (32-36); Mean Corpuscular Hemoglobin 30 pg (26-34); Mean Corpuscular Volume 93 fL (80-100); Monocytes Percent Auto 7.3 % (0.0-11.0); Platelet Count* 277 K/uL (140-440); RDW Coefficient of Variation % 14.8 % (11.5-15.5); White Blood Count* 7.17 K/uL (4.50-11.00)
[2022-01-07 15:41] LABS: Alkaline Phosphatase* 136 U/L (40-150); Blood Urea Nitrogen* 19 mg/dL (7-30); Total Protein* 7.1 g/dL (6.0-8.3)
[2022-01-07 15:42] LABS: Alanine Aminotransferase* 14 U/L (4-50); Calcium* 8.4 mg/dL (8.4-10.6); Glucose* 107 mg/dL (60-115)
[2022-01-07 15:43] LABS: Slide Review Reflex No
[2022-01-07 16:51] LABS: Thyroid Stimulating Hormone* 0.822 uIU/mL (0.270-4.20)
--- NOTE | 2022-01-09 14:07 | URNOTE ---
Request received for authorization for continuing Durvalumab (J9173). Prior authorization is approved for Durvalumab 810mg for 3 doses, per [employer] from 01/09/22 to 02/20/22. Authorization #[id number].
[2022-01-10 02:21] LABS: Cortisol, Serum 1.6 ug/dL
--- NOTE | 2022-01-10 14:50 | ONC.NURNOTE ---
Pt added on to 01/23/22 PET scan schedule here in [place]. Pt aware and will call [facility] medical to confirm.
[2022-01-21 14:59] LABS: Basophils Absolute Auto 0.05 K/uL (0.00-0.30); Basophils Percent Auto 0.8 % (0.0-3.0); Eosinophils Absolute Auto 0.35 K/uL (0.00-0.50); Eosinophils Percent Auto 5.6 % (0.0-7.0); Hematocrit 42.1 % (37.0-53.0); Hemoglobin* 13.5 gm/dL (13.5-17.5); Immature Granulocytes Abs Auto 0.02 K/uL (0.00-0.30); Immature Granulocytes Pct Auto 0.3 %; Lymphocytes Absolute Auto 1.66 K/uL (0.90-2.90); Lymphocytes Percent Auto 26.6 % (20-44); Mean Corpuscular HGB Conc 32 gm/dL (32-36); Mean Corpuscular Hemoglobin 30 pg (26-34); Mean Corpuscular Volume 94 fL (80-100); Neutrophils Absolute Auto 3.48 K/uL (1.7-7.0); Neutrophils Percent Auto 55.7 % (42.0-72.0); Platelet Count* 280 K/uL (140-440); White Blood Count* 6.25 K/uL (4.50-11.00)
[2022-01-21 15:08] LABS: Albumin* 4.1 g/dL (3.3-5.0); Chloride* 104 mmol/L (96-114); Potassium* 4.3 mmol/L (3.6-5.1); Sodium* 139 mmol/L (135-149)
[2022-01-21 15:09] LABS: Slide Review Reflex No
[2022-01-21 15:10] LABS: Creatinine* 0.9 mg/dL (0.5-1.5); Estimated Glomerular Filt Rate 93 ml/min
[2022-01-21 15:11] LABS: Alanine Aminotransferase* 19 U/L (4-50); Alkaline Phosphatase* 106 U/L (40-150); Aspartate Amino Transferase* 20 U/L (12-35); Bilirubin Total* 0.3 mg/dL (0.1-1.5); Blood Urea Nitrogen* 18 mg/dL (7-30); Calcium* 9.5 mg/dL (8.4-10.6); Carbon Dioxide* 26 mmol/L (20-32); Glucose* 84 mg/dL (60-115); Total Protein* 6.7 g/dL (6.0-8.3)
[2022-01-22 14:38] VITALS: BP 147/80; PULSE 86; RESP 18; TEMP 36.1; O2SAT 97
[2022-02-04 14:38] LABS: Basophils Absolute Auto 0.06 K/uL (0.00-0.30); Basophils Percent Auto 0.9 % (0.0-3.0); Eosinophils Absolute Auto 0.33 K/uL (0.00-0.50); Eosinophils Percent Auto 5.2 % (0.0-7.0); Hematocrit 41.5 % (37.0-53.0); Hemoglobin* 13.5 gm/dL (13.5-17.5); Immature Granulocytes Abs Auto 0.04 K/uL (0.00-0.30); Immature Granulocytes Pct Auto 0.6 %; Lymphocytes Absolute Auto 1.57 K/uL (0.90-2.90); Lymphocytes Percent Auto 24.7 % (20-44); Mean Corpuscular HGB Conc 33 gm/dL (32-36); Mean Corpuscular Hemoglobin 30 pg (26-34); Mean Corpuscular Volume 93 fL (80-100); Monocytes Percent Auto 10.4 % (0.0-11.0); Neutrophils Absolute Auto 3.69 K/uL (1.7-7.0); Neutrophils Percent Auto 58.2 % (42.0-72.0); Platelet Count* 252 K/uL (140-440); RDW Coefficient of Variation % 14.7 % (11.5-15.5); Red Blood Count 4.46 m/uL (4.30-5.90); White Blood Count* 6.35 K/uL (4.50-11.00)
[2022-02-04 14:45] LABS: Slide Review Reflex No
[2022-02-04 14:51] LABS: Albumin* 4.1 g/dL (3.3-5.0); Chloride* 105 mmol/L (96-114); Sodium* 137 mmol/L (135-149)
[2022-02-04 14:52] LABS: Potassium* 4.3 mmol/L (3.6-5.1)
[2022-02-04 14:54] LABS: Alkaline Phosphatase* 96 U/L (40-150); Aspartate Amino Transferase* 19 U/L (12-35); Bilirubin Total* 0.5 mg/dL (0.1-1.5); Blood Urea Nitrogen* 19 mg/dL (7-30); Carbon Dioxide* 27 mmol/L (20-32); Creatinine* 0.8 mg/dL (0.5-1.5); Estimated Glomerular Filt Rate 96 ml/min; Total Protein* 6.6 g/dL (6.0-8.3)
[2022-02-04 14:55] LABS: Alanine Aminotransferase* 20 U/L (4-50); Calcium* 9.3 mg/dL (8.4-10.6); Glucose* 90 mg/dL (60-115)
[2022-02-05 14:22] VITALS: BP 125/75; PULSE 81; RESP 20; O2SAT 98
[2022-02-05] MEDS: 0.9 % SODIUM CHLORIDE 250 ml IV (14:42)
[2022-02-05] MEDS: SODIUM CHLORIDE 0.9 % (FLUSH) 10 ML SYRINGE IVF (14:42)
--- NOTE | 2022-02-17 14:38 | URNOTE ---
Request for continued prior authorization of Durvalumab J9173. Patient carries [employer] as primary insurance. Per [employer] Durvalumab 740 mg has be approved for 4 doses from 02/19/2022 through 04/16/2022. Authorization #[id number].
[2022-02-18 14:40] LABS: Basophils Absolute Auto 0.08 K/uL (0.00-0.30); Basophils Percent Auto 1.2 % (0.0-3.0); Eosinophils Absolute Auto 0.32 K/uL (0.00-0.50); Eosinophils Percent Auto 4.7 % (0.0-7.0); Hematocrit 42.6 % (37.0-53.0); Hemoglobin* 13.7 gm/dL (13.5-17.5); Immature Granulocytes Abs Auto 0.03 K/uL (0.00-0.30); Immature Granulocytes Pct Auto 0.4 %; Lymphocytes Absolute Auto 1.54 K/uL (0.90-2.90); Lymphocytes Percent Auto 22.6 % (20-44); Mean Corpuscular HGB Conc 32 gm/dL (32-36); Mean Corpuscular Hemoglobin 30 pg (26-34); Mean Corpuscular Volume 93 fL (80-100); Monocytes Percent Auto 10.3 % (0.0-11.0); Neutrophils Absolute Auto 4.14 K/uL (1.7-7.0); Neutrophils Percent Auto 60.8 % (42.0-72.0); Platelet Count* 253 K/uL (140-440); RDW Coefficient of Variation % 14.9 % (11.5-15.5); White Blood Count* 6.81 K/uL (4.50-11.00)
[2022-02-18 14:48] LABS: Slide Review Reflex No
[2022-02-18 14:52] LABS: Albumin* 4.3 g/dL (3.3-5.0)
[2022-02-18 14:53] LABS: Chloride* 107 mmol/L (96-114); Potassium* 4.9 mmol/L (3.6-5.1); Sodium* 139 mmol/L (135-149)
[2022-02-18 14:55] LABS: Alkaline Phosphatase* 106 U/L (40-150); Aspartate Amino Transferase* 22 U/L (12-35); Bilirubin Total* 0.5 mg/dL (0.1-1.5); Blood Urea Nitrogen* 20 mg/dL (7-30); Carbon Dioxide* 26 mmol/L (20-32); Creatinine* 0.8 mg/dL (0.5-1.5); Estimated Glomerular Filt Rate 96 ml/min; Total Protein* 6.9 g/dL (6.0-8.3)
[2022-02-18 14:56] LABS: Alanine Aminotransferase* 22 U/L (4-50); Calcium* 9.7 mg/dL (8.4-10.6); Glucose* 82 mg/dL (60-115)
[2022-02-19 14:32] VITALS: BP 143/87; PULSE 16; RESP 16; TEMP 36.1; O2SAT 97
[2022-02-21 12:59] LABS: Cortisol, Serum 4.9 ug/dL
[2022-03-04 13:28] LABS: Basophils Absolute Auto 0.08 K/uL (0.00-0.30); Basophils Percent Auto 1.1 % (0.0-3.0); Eosinophils Absolute Auto 0.32 K/uL (0.00-0.50); Eosinophils Percent Auto 4.5 % (0.0-7.0); Hemoglobin* 14.3 gm/dL (13.5-17.5); Immature Granulocytes Abs Auto 0.01 K/uL (0.00-0.30); Immature Granulocytes Pct Auto 0.1 %; Lymphocytes Absolute Auto 1.56 K/uL (0.90-2.90); Lymphocytes Percent Auto 21.8 % (20-44); Mean Corpuscular HGB Conc 33 gm/dL (32-36); Mean Corpuscular Hemoglobin 30 pg (26-34); Mean Corpuscular Volume 91 fL (80-100); Monocytes Percent Auto 9.6 % (0.0-11.0); Neutrophils Percent Auto 62.9 % (42.0-72.0); Platelet Count* 297 K/uL (140-440); RDW Coefficient of Variation % 14.4 % (11.5-15.5); Red Blood Count 4.73 m/uL (4.30-5.90); White Blood Count* 7.16 K/uL (4.50-11.00)
[2022-03-04 13:29] LABS: Slide Review Reflex No
[2022-03-04 13:35] LABS: Albumin* 4.2 g/dL (3.3-5.0); Chloride* 104 mmol/L (96-114); Sodium* 136 mmol/L (135-149)
[2022-03-04 13:36] LABS: Potassium* 4.6 mmol/L (3.6-5.1)
[2022-03-04 13:38] LABS: Alanine Aminotransferase* 20 U/L (4-50); Alkaline Phosphatase* 116 U/L (40-150); Aspartate Amino Transferase* 18 U/L (12-35); Bilirubin Total* 0.6 mg/dL (0.1-1.5); Blood Urea Nitrogen* 20 mg/dL (7-30); Calcium* 9.3 mg/dL (8.4-10.6); Carbon Dioxide* 28 mmol/L (20-32); Estimated Glomerular Filt Rate 82 ml/min; Glucose* 83 mg/dL (60-115); Total Protein* 6.9 g/dL (6.0-8.3)
[2022-03-05 11:07] VITALS: BP 134/76; PULSE 78; RESP 16; TEMP 36.6; O2SAT 97
[2022-03-05] MEDS: 0.9 % SODIUM CHLORIDE 250 ml IV (11:24)
[2022-03-05] MEDS: SODIUM CHLORIDE 0.9 % (FLUSH) 10 ML SYRINGE IVF (11:24)
[2022-03-05] MEDS: DURVALUMAB 1,500 MG, TUBING PRIMARY 1 EACH, In-line 0.2 micron filter set 1 EACH in 0.9... 280 MG IVPB (11:57)
[2022-03-07 01:13] LABS: Cortisol, Serum 8.2 ug/dL
[2022-03-31 14:38] LABS: Basophils Absolute Auto 0.05 K/uL (0.00-0.30); Basophils Percent Auto 0.8 % (0.0-3.0); Eosinophils Percent Auto 8.5 % (0.0-7.0); Hemoglobin* 13.5 gm/dL (13.5-17.5); Immature Granulocytes Abs Auto 0.01 K/uL (0.00-0.30); Immature Granulocytes Pct Auto 0.2 %; Lymphocytes Percent Auto 17.2 % (20-44); Mean Corpuscular HGB Conc 33 gm/dL (32-36); Mean Corpuscular Hemoglobin 30 pg (26-34); Mean Corpuscular Volume 91 fL (80-100); Monocytes Percent Auto 11.1 % (0.0-11.0); Neutrophils Absolute Auto 3.79 K/uL (1.7-7.0); Neutrophils Percent Auto 62.2 % (42.0-72.0); Platelet Count* 250 K/uL (140-440); RDW Coefficient of Variation % 14.3 % (11.5-15.5); Red Blood Count 4.53 m/uL (4.30-5.90)
[2022-03-31 14:53] LABS: Chloride* 106 mmol/L (96-114); Sodium* 135 mmol/L (135-149)
[2022-03-31 14:54] LABS: Potassium* 4.4 mmol/L (3.6-5.1)
[2022-03-31 14:56] LABS: Alkaline Phosphatase* 114 U/L (40-150); Aspartate Amino Transferase* 22 U/L (12-35); Bilirubin Total* 0.5 mg/dL (0.1-1.5); Blood Urea Nitrogen* 18 mg/dL (7-30); Carbon Dioxide* 23 mmol/L (20-32); Creatinine* 0.8 mg/dL (0.5-1.5); Estimated Glomerular Filt Rate 96 ml/min; Total Protein* 6.8 g/dL (6.0-8.3)
[2022-03-31 14:57] LABS: Alanine Aminotransferase* 23 U/L (4-50); Calcium* 9.3 mg/dL (8.4-10.6); Glucose* 101 mg/dL (60-115)
[2022-03-31 15:08] LABS: Slide Review Reflex No
[2022-04-02 14:33] VITALS: BP 135/77; PULSE 90; RESP 16; TEMP 36.1; O2SAT 98
[2022-04-02] MEDS: DURVALUMAB 1,500 MG, TUBING PRIMARY 1 EACH, In-line 0.2 micron filter set 1 EACH in 0.9... 280 MG IVPB (14:46)
[2022-04-02 23:16] LABS: Cortisol, Serum 6.8 ug/dL
== END 2022-04-14 23:59 | disposition home or self-care (01) ==
LOC: CCIC 14:30
PROVIDERS: Clinical Nurse Specialist; Internal Medicine Hematology & Oncology; PCP Nurse Practitioner Family; Referring Provider Nurse Practitioner Family; Visit Provider Physician Assistant
DX: C34.12 Malignant neoplasm of upper lobe, left bronchus or lung (principal)
CPT/HCPCS: 36415; 76705; 80053; 80074; 80076; 82105; 82150; 82533; 83690; 84443; 85025; 96360; 96413; 99212; 99213; 99214; 99215; J7030; J7050; J9173

== ENCOUNTER 2022-05-15 13:01 | Outpatient (CLI) | payer OTHER, SELFPAY ==
--- NOTE | 2022-05-15 13:15 | CRLHL7_ITS ---
For Patients: As a result of the Century Cures Act, medical imaging exams and procedure reports are released immediately into your electronic medical record. You may view this report before your referring provider. If you have questions, please contact your health care provider. CLINICAL HISTORY: Non-small cell lung cancer. TECHNIQUE: Following IV injection of 89-njjmya-1-deoxyglucose (FDG) and a standard uptake period of approximately 60 minutes, a non-contrast CT scan followed by a PET scan were acquired along the length of the body from the mid portion of the head to the mid thighs. The non-contrast CT was used for anatomic localization and photon attenuation correction of the PET scan. Blood Glucose Level (mg/dL): 84 FDG Dose (mCi): 11.8 COMPARISON: PET-CT scan dated 23 January 2022. FINDINGS: Head/Neck: No abnormal activity identified in the head and neck. Chest: No mediastinal or hilar adenopathy. No axillary adenopathy. Small lymph node in the posterior to the right shoulder, SUV max 12.0 previously 18.7. Atherosclerotic vascular calcifications. The lungs show severe emphysema with large upper lobe bullae. 3.7 x 1.7 cm in subpleural mass in the posterior medial aspect of the left upper lobe, SUV max 1.5 previously 1.8. No pneumothorax. Abdomen/Pelvis: No focal abnormalities identified in the visualized portions of the liver, spleen, pancreas, adrenal glands, and kidneys. No hydronephrosis. The GI tract is incompletely distended but shows no gross abnormalities. No retroperitoneal, pelvic sidewall, or mesenteric adenopathy. Atherosclerotic vascular calcifications. Aneurysmal dilatation of the infrarenal abdominal aorta measuring 3.5 x 3.5 cm is unchanged. Bones: Degenerative changes of the spine. No abnormal skeletal activity identified. IMPRESSION: 1. Subpleural mass in the posterior medial aspect of the left upper lobe shows low activity. 2. Right posterior shoulder lymph node shows decreasing activity. 3. No new abnormal activity identified. Dictated by Yoel Akbar MD @ 05/16/2022 4:26:44 PM (Electronically Signed)
== END 2022-05-15 13:02 | disposition home or self-care (01) ==
PROVIDERS: PCP Nurse Practitioner Family; Visit Provider Physician Assistant
DX: C34.12 Malignant neoplasm of upper lobe, left bronchus or lung (principal); R91.8 Other nonspecific abnormal finding of lung field
CPT/HCPCS: 78815; A9552

== ENCOUNTER 2022-05-27 07:04 | Outpatient (CLI) | payer OTHER, SELFPAY ==
--- NOTE | 2022-05-27 07:15 | CRLHL7_ITS ---
For Patients: As a result of the 21st Century Cures Act, medical imaging exams and procedure reports are released immediately into your electronic medical record. You may view this report before your referring provider. If you have questions, please contact your health care provider. Indication: NSCLC RESTAGING Technique: Noncontrast sagittal T1, axial FLAIR, T2 turbo spine echo, and diffusion weighted images. Supplemental post contrast T1 weighted axial and coronal sequences are provided after administration of 15 mL gadolinium-based IV contrast. Comparison: No prior studies available for comparison at this institution. Findings: The ventricles, sulci and gyri are normal size, shape and contour for age. 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 Multiple scattered foci of T2 prolongation in the supratentorial subcortical white matter and the nancy are nonspecific but likely due to chronic small vessel ischemic changes or chronic lacunar infarcts. The midline structures are centrally located with no evidence of shift. There are no suspicious intra or extra-axial fluid collections. No evidence of restricted diffusion to suggest acute ischemia. 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 A 3 mm focus of hypoenhancement in the left aspect of the pituitary gland is suggestive of microadenoma, image 100 series 10. Expected flow voids in the cavernous carotids and basilar artery. No abnormal contrast enhancement involving the brain parenchyma, meninges, calvarium or skull base. Small air-fluid level in the right sphenoid sinus. Impression: 1. No acute intracranial abnormality. 2. Multiple scattered foci of T2 prolongation in the supratentorial subcortical white matter and the nancy are nonspecific but likely due to chronic small vessel ischemic changes or chronic lacunar infarcts. Small chronic cortical infarct in the left parietal cortex. 3. No pathologic enhancement to suggest intracranial metastasis. 4. A 3 mm focus of hypoenhancement in the left aspect of the pituitary gland is suggestive of microadenoma. Dictated by Ren Ricketts MD @ 05/27/2022 11:26:25 AM (Electronically Signed)
== END 2022-05-27 07:05 | disposition home or self-care (01) ==
LOC: MRI 07:04
PROVIDERS: PCP Nurse Practitioner Family; Visit Provider Physician Assistant
DX: C34.92 Malignant neoplasm of unspecified part of left bronchus or lung (principal); G93.9 Disorder of brain, unspecified; E23.6 Other disorders of pituitary gland
CPT/HCPCS: 70553; A9575

== ENCOUNTER 2022-09-18 15:02 | Outpatient (CLI) | payer OTHER, SELFPAY ==
--- NOTE | 2022-09-18 15:30 | CRLHL7_ITS ---
For Patients: As a result of the 21st Century Cures Act, medical imaging exams and procedure reports are released immediately into your electronic medical record. You may view this report before your referring provider. If you have questions, please contact your health care provider. EXAM: PET-CT SKULL BASE TO THIGH CLINICAL INFORMATION: 66-yo male with non-small cell lung cancer. Prior radiation treatment. Immunotherapy.. Patient is referred for further characterization. TECHNIQUE: Radiopharmaceutical: 13.04 mCi of 18F-FDG Intravenous injection site: LAC Uptake time: 56 minutes Blood glucose level at the time of injection: 69 mg/dL Field of view: Skull base to mid-thighs CT protocol: The low-dose, free-breathing, noncontrast CT performed as part of this study is designed for the purposes of attenuation correction and lesion localization, and it is neither sufficient, nor it should be substituted for diagnostic purposes. COMPARISON: PET-CT 05/15/2022 and 01/23/2022 FINDINGS: Physiologic background liver standardized uptake value (SUV mean and SUV max) reported for comparison between PET studies: 3.0 and 3.7. Visualized head and neck: Physiologic uptake in the visualized portions of the brain, extraocular muscles, and salivary glands. Similar mild uptake within both thyroid lobes with no dominant nodule. Nonspecific, possibly related to thyroiditis in the setting of immunotherapy. Head and neck lymph nodes: No suspicious head/neck lymph nodes. Lungs: Diffuse emphysematous changes with similar large bullae in the upper lobes and each apex. Low-density pleural base mass posterior medial left upper lobe with similar uptake, 3.5 x 1.7 cm, SUV max 1.5 (fused image 73). Previously 3.6 x 1.7 cm, SUV max 1.6. No abnormal right lung uptake. Thoracic lymph nodes: Decreased uptake right posterior shoulder lymph node, SUV max 2.7. Previously 12.0. No new axillary lymphadenopathy. Variable uptake within nonenlarged mediastinal lymph nodes at several stations. For example: Lower right paratracheal lymph node, SUV max 3.4. Previously 2.5. AP window lymph node, SUV max 2.6. Previously 1.8. Subcarinal lymph node, SUV max 3.1. Previously 1.6. Other chest findings: Scattered coronary vascular and thoracic aortic calcifications. Hepatobiliary: No abnormal uptake. Spleen: No abnormal uptake. No splenomegaly. Pancreas: No abnormal uptake. Adrenals: No abnormal uptake. Kidneys and bladder: No abnormal uptake or obstruction. Bilateral perinephric stranding. Limited bladder distention with mild generalized wall thickening. Bowel and peritoneum: No suspicious gastric, small bowel or colon uptake. Similar circumferential uptake in the lower anal canal is nonspecific and without obvious noncontrast CT abnormality. Possibly reactive or physiologic. Pelvic organs: Similar prostate enlargement. No abnormal uptake. Abdominopelvic lymph nodes: No new hypermetabolic abdominopelvic lymph nodes. Musculoskeletal, soft tissues, skin: No new tracer avid osseous lesions or abnormal uptake. Degenerative type uptake within the spine, shoulders and hips. Other: Diffuse aortoiliac atherosclerotic vascular calcifications. Similar mild aneurysmal dilation of the infrarenal abdominal aorta, 3.6 cm. Fat containing periumbilical hernia. Postoperative changes with multiple surgical clips right lower quadrant and the anterior pelvis. Fat containing left inguinal hernia. Right hydrocele. IMPRESSION: 1. Unchanged appearance of a low-density pleural base mass posterior medial left upper lobe with very mild activity. No significant progression or new areas of abnormal lung uptake. Quite prominent upper lobe and apical bullae in each lung. 2. Decreased uptake within a small right posterior shoulder lymph node. Variable mild increased uptake within nonenlarged mediastinal lymph nodes at several stations. Attention on follow-up. 3. No distant sites of tracer avid disease in the neck, solid organs of the upper abdomen or new abdominopelvic lymph nodes. 4. Mild generalized uptake in both lobes of the thyroid with no discrete nodule is nonspecific, possibly secondary to thyroiditis. 5. No suspicious tracer avid osseous lesions. Dictated by Jarad Escalona MD @ 09/25/2022 4:23:12 PM (Electronically Signed)
== END 2022-09-18 15:03 | disposition home or self-care (01) ==
LOC: RAD 15:02
PROVIDERS: PCP Nurse Practitioner Family; Visit Provider Internal Medicine Hematology & Oncology
DX: C34.12 Malignant neoplasm of upper lobe, left bronchus or lung (principal)
CPT/HCPCS: 78815; A9552

== ENCOUNTER 2022-09-19 12:24 | Outpatient (CLI) | payer OTHER, SELFPAY ==
--- NOTE | 2022-09-19 14:30 | CRLHL7_ITS ---
For Patients: As a result of the Century Cures Act, medical imaging exams and procedure reports are released immediately into your electronic medical record. You may view this report before your referring provider. If you have questions, please contact your health care provider. INDICATION: Lung cancer. Restaging. COMPARISON: 07/27/2022 and 01/20/2022. TECHNIQUE: Multiplanar T1, T2, FLAIR and diffusion-weighted imaging. Post gadolinium 2 weighted sequences. FINDINGS: Normal brain parenchymal morphology. Compared to the previous exam, stable scattered patchy foci of T2/FLAIR signal hyperintensity within the white matter of both cerebral hemispheres and nancy are nonspecific but likely represent chronic deep white matter small vessel ischemic changes. No intracranial hemorrhage. No abnormal ventricular dilatation. Intracranial vascular flow voids are preserved. No mass effect. No midline shift. No restricted diffusion to suggest acute ischemia. No abnormal enhancement or enhancing lesions within the brain parenchyma. Bilateral orbits are unremarkable. Stable small 2 mm hypo enhancing nodule within the left aspect of the pituitary gland (series 12, image 94) which may represent a microadenoma. Visualized paranasal sinuses and mastoid air cells are clear. IMPRESSION : 1. No interval change 2. No acute intracranial abnormality. 3. No abnormal enhancement or enhancing lesions. No intracranial metastases. 4. Scattered patchy foci of T2 signal within the white matter of both cerebral hemispheres are nonspecific but likely represent chronic deep white matter small vessel ischemic changes. Dictated by Lonny Hickey MD @ 09/20/2022 11:47:16 PM (Electronically Signed)
== END 2022-09-19 12:25 | disposition home or self-care (01) ==
LOC: MRI 12:24
PROVIDERS: PCP Nurse Practitioner Family; Visit Provider Internal Medicine Hematology & Oncology
DX: C34.92 Malignant neoplasm of unspecified part of left bronchus or lung (principal)
CPT/HCPCS: 70553; A9575

== ENCOUNTER 2022-10-16 14:45 | Outpatient (RCR) | payer OTHER, SELFPAY ==
--- NOTE | 2022-04-16 10:06 | URNOTE ---
Received request for prior auth for Durvalumab (J9173). Per [employer] this has been approved 04/30/2022-10/28/2022. Auth # [id number]
--- NOTE | 2022-04-16 10:19 | PC.NURSE ---
PA received for Ezio. Pt scheduled. LM on primary number with this update. No call back requested.
[2022-04-29 14:42] LABS: Basophils Absolute Auto 0.09 K/uL (0.00-0.30); Basophils Percent Auto 1.2 % (0.0-3.0); Eosinophils Percent Auto 10.1 % (0.0-7.0); Hematocrit 41.2 % (37.0-53.0); Hemoglobin* 13.4 gm/dL (13.5-17.5); Immature Granulocytes Abs Auto 0.04 K/uL (0.00-0.30); Immature Granulocytes Pct Auto 0.5 %; Lymphocytes Percent Auto 13.5 % (20-44); Mean Corpuscular HGB Conc 33 gm/dL (32-36); Mean Corpuscular Hemoglobin 29 pg (26-34); Mean Corpuscular Volume 90 fL (80-100); Monocytes Percent Auto 9.5 % (0.0-11.0); Neutrophils Absolute Auto 5.02 K/uL (1.7-7.0); Neutrophils Percent Auto 65.2 % (42.0-72.0); Platelet Count* 263 K/uL (140-440); RDW Coefficient of Variation % 14.7 % (11.5-15.5); Red Blood Count 4.58 m/uL (4.30-5.90)
[2022-04-29 14:53] LABS: Slide Review Reflex No
[2022-04-29 14:57] LABS: Albumin* 3.9 g/dL (3.3-5.0); Chloride* 109 mmol/L (96-114); Sodium* 139 mmol/L (135-149)
[2022-04-29 14:58] LABS: Potassium* 4.1 mmol/L (3.6-5.1)
[2022-04-29 15:00] LABS: Alkaline Phosphatase* 99 U/L (40-150); Aspartate Amino Transferase* 24 U/L (12-35); Bilirubin Total* 0.5 mg/dL (0.1-1.5); Blood Urea Nitrogen* 21 mg/dL (7-30); Carbon Dioxide* 25 mmol/L (20-32); Creatinine* 0.8 mg/dL (0.5-1.5); Estimated Glomerular Filt Rate 96 ml/min; Total Protein* 6.6 g/dL (6.0-8.3)
[2022-04-29 15:01] LABS: Alanine Aminotransferase* 27 U/L (4-50); Calcium* 9.2 mg/dL (8.4-10.6); Glucose* 110 mg/dL (60-115)
[2022-04-30 14:38] VITALS: BP 120/67; PULSE 83; RESP 16; TEMP 35.9; O2SAT 96
[2022-04-30] MEDS: DURVALUMAB 1,500 MG, TUBING PRIMARY 1 EACH, In-line 0.2 micron filter set 1 EACH in 0.9... 280 MG IVPB (15:20)
--- NOTE | 2022-04-30 15:36 | PC.NURSE ---
Pt voiced concern about his labs as he noted some values were off. Lori Mohr APRN discussed labs with pt and added on some additional thyroid studies. Pt is feeling well aside from fatigue and SOB which is not new. He has a sun rash on the front of his trunk as he was just in [place]. Pt will monitor his symptoms and call if any additional symptoms of infection arise.
[2022-04-30 17:10] LABS: Free T4 Free Thyroxine* 0.91 ng/dL (0.70-1.85)
[2022-05-01 22:02] LABS: Cortisol, Serum 6.3 ug/dL
[2022-05-04 10:50] LABS: Total T3 83 ng/dL (80-200)
[2022-05-27 08:53] LABS: Basophils Absolute Auto 0.05 K/uL (0.00-0.30); Basophils Percent Auto 0.6 % (0.0-3.0); Eosinophils Absolute Auto 0.45 K/uL (0.00-0.50); Eosinophils Percent Auto 5.6 % (0.0-7.0); Hemoglobin* 14.2 gm/dL (13.5-17.5); Immature Granulocytes Abs Auto 0.02 K/uL (0.00-0.30); Immature Granulocytes Pct Auto 0.2 %; Lymphocytes Percent Auto 16.7 % (20-44); Mean Corpuscular HGB Conc 32 gm/dL (32-36); Mean Corpuscular Hemoglobin 29 pg (26-34); Mean Corpuscular Volume 90 fL (80-100); Monocytes Percent Auto 9.4 % (0.0-11.0); Neutrophils Percent Auto 67.5 % (42.0-72.0); Platelet Count* 277 K/uL (140-440); RDW Coefficient of Variation % 16.2 % (11.5-15.5); Red Blood Count 4.88 m/uL (4.30-5.90); White Blood Count* 8.01 K/uL (4.50-11.00)
[2022-05-27 09:00] LABS: Slide Review Reflex No
[2022-05-27 09:15] LABS: Albumin* 3.7 g/dL (3.3-5.0)
[2022-05-27 09:16] LABS: Chloride* 106 mmol/L (96-114); Potassium* 4.9 mmol/L (3.6-5.1); Sodium* 137 mmol/L (135-149)
[2022-05-27 09:18] LABS: Bilirubin Total* 0.4 mg/dL (0.1-1.5); Creatinine* 0.8 mg/dL (0.5-1.5); Estimated Glomerular Filt Rate 96 ml/min
[2022-05-27 09:19] LABS: Alanine Aminotransferase* 22 U/L (4-50); Alkaline Phosphatase* 94 U/L (40-150); Aspartate Amino Transferase* 23 U/L (12-35); Blood Urea Nitrogen* 18 mg/dL (7-30); Calcium* 9.1 mg/dL (8.4-10.6); Carbon Dioxide* 26 mmol/L (20-32); Glucose* 105 mg/dL (60-115); Total Protein* 6.4 g/dL (6.0-8.3)
--- NOTE | 2022-05-28 15:50 | PC.NURSE ---
Pt presents at [facility] today, 05/28/2022. Labs were done yesterday. Pt is scheduled with provider tomorrow. Decision was made to defer IV treatment to tomorrow following provider visit. Pt scheduled for 05/29/2022. No charges for todays visit.
[2022-05-28 18:57] LABS: Cortisol, Serum 5.9 ug/dL
[2022-05-29] MEDS: DURVALUMAB 1,500 MG, TUBING PRIMARY 1 EACH, In-line 0.2 micron filter set 1 EACH in 0.9... 280 MG IVPB (14:53)
[2022-06-23 14:11] LABS: Basophils Absolute Auto 0.07 K/uL (0.00-0.30); Basophils Percent Auto 0.9 % (0.0-3.0); Eosinophils Absolute Auto 0.44 K/uL (0.00-0.50); Eosinophils Percent Auto 5.6 % (0.0-7.0); Hemoglobin* 13.3 gm/dL (13.5-17.5); Immature Granulocytes Abs Auto 0.08 K/uL (0.00-0.30); Lymphocytes Percent Auto 17.8 % (20-44); Mean Corpuscular HGB Conc 32 gm/dL (32-36); Mean Corpuscular Hemoglobin 29 pg (26-34); Mean Corpuscular Volume 89 fL (80-100); Monocytes Percent Auto 9.5 % (0.0-11.0); Neutrophils Absolute Auto 5.08 K/uL (1.7-7.0); Neutrophils Percent Auto 65.2 % (42.0-72.0); Platelet Count* 245 K/uL (140-440); RDW Coefficient of Variation % 16.1 % (11.5-15.5); Red Blood Count 4.59 m/uL (4.30-5.90)
[2022-06-23 14:18] LABS: Slide Review Reflex No
[2022-06-23 14:28] LABS: Albumin* 3.7 g/dL (3.3-5.0); Chloride* 108 mmol/L (96-114)
[2022-06-23 14:29] LABS: Sodium* 135 mmol/L (135-149)
[2022-06-23 14:31] LABS: Aspartate Amino Transferase* 20 U/L (12-35); Bilirubin Total* 0.5 mg/dL (0.1-1.5); Carbon Dioxide* 25 mmol/L (20-32); Creatinine* 0.7 mg/dL (0.5-1.5); Estimated Glomerular Filt Rate 100 ml/min
[2022-06-23 14:32] LABS: Alanine Aminotransferase* 19 U/L (4-50); Alkaline Phosphatase* 91 U/L (40-150); Blood Urea Nitrogen* 14 mg/dL (7-30); Calcium* 9.1 mg/dL (8.4-10.6); Glucose* 95 mg/dL (60-115); Total Protein* 6.2 g/dL (6.0-8.3)
[2022-06-24 17:22] LABS: Cortisol, Serum 5.2 ug/dL
[2022-06-27 14:30] VITALS: BP 117/68; PULSE 85; RESP 16; TEMP 36.1; O2SAT 92
[2022-06-27] MEDS: DURVALUMAB 1,500 MG, TUBING PRIMARY 1 EACH, In-line 0.2 micron filter set 1 EACH in 0.9... 280 MG IVPB (14:53)
--- NOTE | 2022-06-30 15:46 | ONC.NURNOTE ---
Pt questioning if he needs Imfinzi in July, then resume in August. Discussed with Luis Enrique and pt does need July dose. Stock Manager called and left message with pt with this information.
[2022-07-23 08:42] LABS: Basophils Absolute Auto 0.08 K/uL (0.00-0.30); Basophils Percent Auto 1.3 % (0.0-3.0); Eosinophils Percent Auto 6.5 % (0.0-7.0); Hematocrit 46.2 % (37.0-53.0); Hemoglobin* 15.1 gm/dL (13.5-17.5); Immature Granulocytes Abs Auto 0.02 K/uL (0.00-0.30); Immature Granulocytes Pct Auto 0.3 %; Lymphocytes Percent Auto 18.1 % (20-44); Mean Corpuscular HGB Conc 33 gm/dL (32-36); Mean Corpuscular Hemoglobin 29 pg (26-34); Mean Corpuscular Volume 90 fL (80-100); Monocytes Percent Auto 10.6 % (0.0-11.0); Neutrophils Absolute Auto 3.92 K/uL (1.7-7.0); Neutrophils Percent Auto 63.2 % (42.0-72.0); Platelet Count* 288 K/uL (140-440); RDW Coefficient of Variation % 15.4 % (11.5-15.5); Red Blood Count 5.13 m/uL (4.30-5.90)
[2022-07-23 08:47] LABS: Slide Review Reflex No
[2022-07-23 09:01] LABS: Albumin* 4.2 g/dL (3.3-5.0); Chloride* 102 mmol/L (96-114); Sodium* 137 mmol/L (135-149)
[2022-07-23 09:02] LABS: Potassium* 4.6 mmol/L (3.6-5.1)
[2022-07-23 09:04] LABS: Alanine Aminotransferase* 25 U/L (4-50); Alkaline Phosphatase* 122 U/L (40-150); Aspartate Amino Transferase* 23 U/L (12-35); Bilirubin Total* 0.5 mg/dL (0.1-1.5); Blood Urea Nitrogen* 19 mg/dL (7-30); Calcium* 9.5 mg/dL (8.4-10.6); Carbon Dioxide* 26 mmol/L (20-32); Creatinine* 0.9 mg/dL (0.5-1.5); Estimated Glomerular Filt Rate 93 ml/min; Glucose* 102 mg/dL (60-115)
[2022-07-24 14:30] VITALS: BP 111/69; PULSE 88; RESP 16; TEMP 36; O2SAT 94
[2022-07-24] MEDS: DURVALUMAB 1,500 MG, TUBING PRIMARY 1 EACH, In-line 0.2 micron filter set 1 EACH in 0.9... 280 MG IVPB (14:45)
[2022-07-25 06:07] LABS: Cortisol, Serum 9.2 ug/dL
[2022-08-20 14:44] LABS: Basophils Absolute Auto 0.06 K/uL (0.00-0.30); Basophils Percent Auto 0.8 % (0.0-3.0); Eosinophils Absolute Auto 0.43 K/uL (0.00-0.50); Eosinophils Percent Auto 5.7 % (0.0-7.0); Hematocrit 44.5 % (37.0-53.0); Hemoglobin* 14.6 gm/dL (13.5-17.5); Immature Granulocytes Abs Auto 0.03 K/uL (0.00-0.30); Immature Granulocytes Pct Auto 0.4 %; Lymphocytes Absolute Auto 1.56 K/uL (0.90-2.90); Lymphocytes Percent Auto 20.6 % (20-44); Mean Corpuscular HGB Conc 33 gm/dL (32-36); Mean Corpuscular Hemoglobin 29 pg (26-34); Mean Corpuscular Volume 90 fL (80-100); Monocytes Percent Auto 9.1 % (0.0-11.0); Neutrophils Absolute Auto 4.82 K/uL (1.7-7.0); Neutrophils Percent Auto 63.4 % (42.0-72.0); Platelet Count* 241 K/uL (140-440); RDW Coefficient of Variation % 15.3 % (11.5-15.5); Red Blood Count 4.96 m/uL (4.30-5.90); White Blood Count* 7.59 K/uL (4.50-11.00)
[2022-08-20 14:49] LABS: Slide Review Reflex No
[2022-08-20 15:12] LABS: Albumin* 4.1 g/dL (3.3-5.0); Chloride* 102 mmol/L (96-114); Potassium* 4.4 mmol/L (3.6-5.1); Sodium* 134 mmol/L (135-149)
[2022-08-20 15:14] LABS: Creatinine* 0.8 mg/dL (0.5-1.5); Estimated Glomerular Filt Rate 96 ml/min
[2022-08-20 15:15] LABS: Alanine Aminotransferase* 23 U/L (4-50); Alkaline Phosphatase* 86 U/L (40-150); Bilirubin Total* 0.5 mg/dL (0.1-1.5); Blood Urea Nitrogen* 18 mg/dL (7-30); Calcium* 9.4 mg/dL (8.4-10.6); Carbon Dioxide* 27 mmol/L (20-32); Glucose* 82 mg/dL (60-115); Total Protein* 6.6 g/dL (6.0-8.3)
[2022-08-20 15:32] LABS: Aspartate Amino Transferase* 23 U/L (12-35)
[2022-08-21] MEDS: DURVALUMAB 1,500 MG, TUBING PRIMARY 1 EACH, In-line 0.2 micron filter set 1 EACH in 0.9... 280 MG IVPB (14:01)
[2022-08-23 00:05] LABS: Cortisol, Serum 10.9 ug/dL
[2022-09-17 14:25] LABS: Basophils Absolute Auto 0.07 K/uL (0.00-0.30); Eosinophils Absolute Auto 0.29 K/uL (0.00-0.50); Eosinophils Percent Auto 4.1 % (0.0-7.0); Hematocrit 44.6 % (37.0-53.0); Hemoglobin* 14.4 gm/dL (13.5-17.5); Immature Granulocytes Abs Auto 0.01 K/uL (0.00-0.30); Immature Granulocytes Pct Auto 0.1 %; Lymphocytes Absolute Auto 1.44 K/uL (0.90-2.90); Lymphocytes Percent Auto 20.4 % (20-44); Mean Corpuscular HGB Conc 32 gm/dL (32-36); Mean Corpuscular Hemoglobin 29 pg (26-34); Mean Corpuscular Volume 91 fL (80-100); Monocytes Percent Auto 10.8 % (0.0-11.0); Neutrophils Absolute Auto 4.48 K/uL (1.7-7.0); Neutrophils Percent Auto 63.6 % (42.0-72.0); Platelet Count* 281 K/uL (140-440); RDW Coefficient of Variation % 15.1 % (11.5-15.5); Red Blood Count 4.93 m/uL (4.30-5.90); White Blood Count* 7.05 K/uL (4.50-11.00)
[2022-09-17 14:28] LABS: Slide Review Reflex No
[2022-09-17 14:42] LABS: Albumin* 4.2 g/dL (3.3-5.0); Chloride* 101 mmol/L (96-114); Potassium* 4.5 mmol/L (3.6-5.1); Sodium* 133 mmol/L (135-149)
[2022-09-17 14:44] LABS: Creatinine* 0.7 mg/dL (0.5-1.5); Est. Creatinine Clearance* 78.56; Estimated Glomerular Filt Rate 100 ml/min
[2022-09-17 14:45] LABS: Alanine Aminotransferase* 19 U/L (4-50); Alkaline Phosphatase* 100 U/L (40-150); Aspartate Amino Transferase* 17 U/L (12-35); Bilirubin Total* 0.5 mg/dL (0.1-1.5); Blood Urea Nitrogen* 22 mg/dL (7-30); Calcium* 9.4 mg/dL (8.4-10.6); Carbon Dioxide* 25 mmol/L (20-32); Glucose* 90 mg/dL (60-115); Total Protein* 7.1 g/dL (6.0-8.3)
[2022-09-19 12:36] VITALS: BP 106/67; PULSE 89; RESP 16; TEMP 36.3; O2SAT 97
[2022-09-19] MEDS: DURVALUMAB 1,500 MG, TUBING PRIMARY 1 EACH, In-line 0.2 micron filter set 1 EACH in 0.9... 280 MG IVPB (12:59)
[2022-09-19 16:24] LABS: Cortisol, Serum 7.3 ug/dL
--- NOTE | 2022-09-26 15:38 | ONC.NURNOTE ---
Dr. Lopez reviewed Pet scan and attempted to call patient but no answer. Patient called by medical underwriter with Dr. lopez's recommendations-stating PET overall looked good but there was some concern noted in lymph node so she will order another scan in 6 weeks to see how it compares and then he will meet with MD to discuss. No changes at this time in treatment
[2022-10-15 15:19] LABS: Albumin* 4.1 g/dL (3.3-5.0); Chloride* 103 mmol/L (96-114)
[2022-10-15 15:20] LABS: Potassium* 4.3 mmol/L (3.6-5.1); Sodium* 136 mmol/L (135-149)
[2022-10-15 15:22] LABS: Alkaline Phosphatase* 95 U/L (40-150); Aspartate Amino Transferase* 21 U/L (12-35); Bilirubin Total* 0.6 mg/dL (0.1-1.5); Blood Urea Nitrogen* 19 mg/dL (7-30); Carbon Dioxide* 26 mmol/L (20-32); Creatinine* 0.8 mg/dL (0.5-1.5); Estimated Glomerular Filt Rate 96 ml/min; Total Protein* 6.9 g/dL (6.0-8.3)
[2022-10-15 15:23] LABS: Alanine Aminotransferase* 20 U/L (4-50); Basophils Absolute Auto 0.09 K/uL (0.00-0.30); Basophils Percent Auto 1.3 % (0.0-3.0); Calcium* 9.7 mg/dL (8.4-10.6); Eosinophils Percent Auto 4.3 % (0.0-7.0); Glucose* 89 mg/dL (60-115); Hematocrit 45.6 % (37.0-53.0); Hemoglobin* 14.9 gm/dL (13.5-17.5); Immature Granulocytes Abs Auto 0.02 K/uL (0.00-0.30); Immature Granulocytes Pct Auto 0.3 %; Lymphocytes Absolute Auto 1.46 K/uL (0.90-2.90); Lymphocytes Percent Auto 21.2 % (20-44); Mean Corpuscular HGB Conc 33 gm/dL (32-36); Mean Corpuscular Hemoglobin 29 pg (26-34); Mean Corpuscular Volume 89 fL (80-100); Monocytes Percent Auto 9.1 % (0.0-11.0); Neutrophils Percent Auto 63.8 % (42.0-72.0); Platelet Count* 242 K/uL (140-440); RDW Coefficient of Variation % 15.3 % (11.5-15.5)
[2022-10-15 15:30] LABS: Slide Review Reflex No
[2022-10-16 14:47] VITALS: BP 119/71; PULSE 80; RESP 16; TEMP 36.6; O2SAT 94
[2022-10-16] MEDS: DURVALUMAB 1,500 MG, TUBING PRIMARY 1 EACH, In-line 0.2 micron filter set 1 EACH in 0.9... 280 MG IVPB (15:21)
[2022-10-17 15:36] LABS: Cortisol, Serum 7.6 ug/dL
== END 2022-10-26 23:59 | disposition home or self-care (01) ==
LOC: CCIC 14:45
PROVIDERS: Clinical Nurse Specialist; PCP Nurse Practitioner Family; Referring Provider Nurse Practitioner Family; Visit Provider Internal Medicine Hematology & Oncology
DX: C34.12 Malignant neoplasm of upper lobe, left bronchus or lung (principal)
CPT/HCPCS: 36415; 80053; 82533; 84439; 84443; 84480; 85025; 96413; 99202; 99211; 99212; 99213; 99214; J7050; J9173

== ENCOUNTER 2022-10-27 14:41 | Outpatient (CLI) | payer OTHER, SELFPAY ==
--- NOTE | 2022-10-27 15:00 | CRLHL7_ITS ---
For Patients: As a result of the Century Cures Act, medical imaging exams and procedure reports are released immediately into your electronic medical record. You may view this report before your referring provider. If you have questions, please contact your health care provider. Indication: Non-small cell lung cancer Technique: Post contrast CT chest. 75 cc Isovue 370 intravenous contrast. Please note that all CT scans at this facility use dose modulation, iterative reconstruction, and/or weight-based dosing when appropriate to reduce radiation dose to as low as reasonably achievable. Comparison: CT-PET 09/18/2022, CT chest 06/06/2021 Findings: Chronic osseous density adjacent to the right scapula. No soft tissue mass about the right shoulder. No thyroid mass. Similar appearance of low-density pleural based density at the left upper lobe. Chronic scarring at the right upper lobe at the posterior medial aspect. Sequela of granulomatous disease with calcified mediastinal and right hilar lymph nodes. Subcentimeter mediastinal lymph nodes elsewhere are similar. No enlarged hilar or axillary lymph nodes. Atherosclerotic changes are present. The adrenal glands are normal. The liver is unchanged. No upper abdominal ascites or enlarged lymph nodes. No pericardial effusion. No pleural effusion. There is no destructive osseous lesion. No fracture. Severe bullous changes in the upper lobes again noted. No suspicious pulmonary nodule. Impression: Severe bullous emphysematous changes to the upper lobes and chronic post treatment changes noted. No suspicious lymph nodes by size criteria within the thorax. No suspicious pulmonary nodule. No significant change since the recent CT PET September 18, 2022. Please note that all CT scans at this facility use dose modulation, iterative reconstruction, and/or weight-based dosing when appropriate to reduce radiation dose to as low as reasonably achievable. Dictated by Ren Long MD @ 10/28/2022 12:36:01 PM (Electronically Signed)
== END 2022-10-27 14:42 | disposition home or self-care (01) ==
LOC: CT 14:42
PROVIDERS: PCP Nurse Practitioner Family; Visit Provider Internal Medicine Hematology & Oncology
DX: C34.92 Malignant neoplasm of unspecified part of left bronchus or lung (principal)
CPT/HCPCS: 71260; Q9967

== ENCOUNTER 2023-01-22 13:52 | Outpatient (CLI) | payer OTHER, SELFPAY ==
--- NOTE | 2023-01-22 14:00 | PE_ITS ---
[facility] [address] [facility] [address] Phone:?[phone] Fax:?[phone] Referring Physician Information: Charity Dudley M.D. [address] [facility] [address] Phone:?[phone] Fax:?[phone] Patient:Bello Palacios D.O.B:?1955 Sex:?Male Phone:? [facility] MRN:?[id number] Exam Date:?01/22/2023 EXAM: PET/CT EYES TO THIGHS, CANCER RESTAGING CLINICAL INFORMATION: NSCLC, restaging. TECHNICAL INFORMATION: Helical acquisition of data was obtained from the orbits to the upper thighs with reconstruction of 3.75 mm thick images at 3.[address] data was used for attenuation correction. PET scanning was performed through the same anatomic range 55 minutes following administration of 12.58 mCi of 18-FDG delivered intravenously. The patient's glucose at the time of the injection was 81 mg/dL. PET, CT and PET/CT fusion images are interpreted using a computer viewing workstation. PET, CT and PET/CT fusion images were archived and saved in the patient's permanent medical record. COMPARISON: Chest CT from 10/27/2022, PET-CT from 09/18/2022. INTERPRETATION: Head and Neck: There are no abnormal hypermetabolic foci within the head or neck. There is physiologic uptake in the intracranial soft tissues. Chest: Background mediastinal blood pool uptake has a maximum SUV of 2.24. Marked bullous emphysema redemonstrated. Stable subpleural opacity in the left upper lobe (Se 2 Im 67) has a maximum SUV of 0.926, previously 1.5, consistent with a benign etiology (i.e., treated disease). No intrathoracic lymphadenopathy in terms of size, morphology, or metabolic rate. Calcified right hilar nodes redemonstrated, consistent with old histoplasma exposure. Focal hypermetabolism of the esophagogastric junction (Se 2 Im 136) has a maximum SUV of 4.28, indeterminate for esophagitis versus neoplasia. Abdomen and Pelvis: There are no abnormal hypermetabolic foci within the abdomen or pelvis. Background hepatic parenchymal uptake has a maximum SUV of 3.08. There is physiologic excretion of radiotracer in the urine and bowel. Skeleton, Musculature, and Integument: No abnormal hypermetabolic foci within the skeleton. No guille osteoblastic or osteolytic disease. CONCLUSION: 1. Stable treated disease in the left upper lobe, without evidence of viable residua/recurrence. 2. No hypermetabolic rizwana or distant metastasis identified. 3. Modest focus of hypermetabolism at the esophagogastric junction, indeterminate for esophagitis versus neoplasia. Consider correlation with upper endoscopy. Electronically signed on 01/23/2023 12:28:00 PM by Patricio Kinsey M.D.
== END 2023-01-22 13:53 | disposition home or self-care (01) ==
PROVIDERS: PCP Nurse Practitioner Family; Visit Provider Internal Medicine Hematology & Oncology
DX: C34.12 Malignant neoplasm of upper lobe, left bronchus or lung (principal)
CPT/HCPCS: 78815; A9552

== ENCOUNTER 2023-04-07 14:50 | Outpatient (CLI) | payer OTHER, SELFPAY ==
--- NOTE | 2023-04-07 15:30 | CRLHL7_ITS ---
For Patients: As a result of the Century Cures Act, medical imaging exams and procedure reports are released immediately into your electronic medical record. You may view this report before your referring provider. If you have questions, please contact your health care provider. INDICATION: Lung cancer. TECHNIQUE: Multiplanar multisequence MR imaging of the brain prior to and following intravenous contrast. COMPARISON: MRI brain 09/19/2022. FINDINGS: Mild diffuse cerebral volume loss. No mass effect or midline shift. Stable scattered and patchy FLAIR hyperintensities in the supratentorial white matter, typical for esvx-la-nzlzhgya chronic microvascular ischemic changes. No intracranial hemorrhage or pathologic extra-axial fluid collection. No diffusion restriction to suggest acute infarction. No pathologic intracranial enhancement. The major arterial flow voids of the skullbase are preserved. The globes are symmetric. Shallow subgaleal fluid overlying the right parietal calvarium, nonspecific. Hqkp-xg-bvbbadbh ethmoid sinus mucosal thickening. Small right maxillary sinus retention cyst. Small right and trace left mastoid effusions. IMPRESSION: No acute intracranial abnormality or evidence for intracranial metastatic disease. No significant change compared to the prior MRI. Dictated by Dick Tubbs MD @ 04/08/2023 7:20:35 AM (Electronically Signed)
== END 2023-04-07 14:51 | disposition home or self-care (01) ==
LOC: MRI 14:51
PROVIDERS: PCP Nurse Practitioner Family; Visit Provider Internal Medicine Hematology & Oncology
DX: C34.92 Malignant neoplasm of unspecified part of left bronchus or lung (principal)
CPT/HCPCS: 70553; A9575

== ENCOUNTER 2023-04-16 13:57 | Outpatient (CLI) | payer OTHER, SELFPAY ==
--- NOTE | 2023-04-16 14:15 | PE_ITS ---
[facility] [address] [facility] [address] Phone:?[phone] Fax:?[phone] Referring Physician Information: Charity Dudley M.D. [address] [facility] [address] Phone:?[phone] Fax:?[phone] Patient:Bello Palacios D.O.B:?1955 Sex:?Male Phone:? [facility] MRN:?[id number] Exam Date:?04/16/2023 EXAM: PET/CT EYES TO THIGHS, CANCER RESTAGING CLINICAL INFORMATION: Lung cancer, restaging. TECHNICAL INFORMATION: Helical acquisition of data was obtained from the orbits to the upper thighs with reconstruction of 3.75 mm thick images at 3.[address] data was used for attenuation correction. PET scanning was performed through the same anatomic range 60 minutes following administration of 11.14 mCi of 18-FDG delivered intravenously. The patient's glucose at the time of the injection was 70 mg/dL. PET, CT and PET/CT fusion images are interpreted using a computer viewing workstation. PET, CT and PET/CT fusion images were archived and saved in the patient's permanent medical record. COMPARISON: PET-CTs from 01/22/2023 and 09/18/2022. INTERPRETATION: Head and Neck: There are no abnormal hypermetabolic foci within the head or neck. There is physiologic uptake in the intracranial soft tissues. Chest: Background mediastinal blood pool uptake has a maximum SUV of 2.39. Two new tiny foci of increased FDG uptake are noted along the pleural surface of the left apex (Se 2 Im 85, 91; SUVmax = 7.34, 9.7). Two nonenlarged mediastinal lymph nodes show new hypermetabolism: ...a) right lower paratracheal node (Se 2 Im 108) has a maximum SUV of 6.72. ...b) aorticopulmonary node (Se 2 Im 114) has a maximum SUV of 4.97. Marked bullous emphysema redemonstrated. Stable subpleural opacity in the left upper lobe (Se 2 Im 91) has a maximum SUV of 1.62, previously 0.926 (Jan 2023) and 1.5 (September 2022), consistent with a benign etiology (i.e., treated disease). Calcified right hilar nodes redemonstrated, consistent with old histoplasma exposure. There is no present correlate for the focal hypermetabolism that previously involved the esophagogastric junction, possibly reflecting prior esophagitis that has resolved. Abdomen and Pelvis: There are no abnormal hypermetabolic foci within the abdomen or pelvis. Background hepatic parenchymal uptake has a maximum SUV of 2.63. There is physiologic excretion of radiotracer in the urine and bowel. Skeleton, Musculature, and Integument: No abnormal hypermetabolic foci within the skeleton. No guille osteoblastic or osteolytic disease. CONCLUSION: 1. Two new foci of increased FDG uptake in the peripheral left apex are worrisome for pulmonary or pleural metastases. Consider diagnostic chest CT for further evaluation. 2. Two nonenlarged mediastinal lymph nodes are newly hypermetabolic, also concerning for early viable metastasis. Recommend close attention on the aforementioned follow-up scan. 3. The focal hypermetabolism that previously involved the EG junction is no longer present, likely reflecting esophagitis that has resolved. Electronically signed on 04/17/2023 3:46:00 PM by Patricio Kinsey M.D.
== END 2023-04-16 13:58 | disposition home or self-care (01) ==
LOC: RAD 13:59
PROVIDERS: PCP Nurse Practitioner Family; Visit Provider Internal Medicine Hematology & Oncology
DX: C34.92 Malignant neoplasm of unspecified part of left bronchus or lung (principal)
CPT/HCPCS: 78815; A9552

== ENCOUNTER 2023-05-11 06:03 | Day surgery (SDC) | payer OTHER, SELFPAY ==
[2023-05-11] MEDS: LACTATED RINGERS 1000 ML 1,000 ML 100 ML IV (06:30)
[2023-05-11] MEDS: SODIUM CHLORIDE 0.9 % (FLUSH) 10 ML SYRINGE IVF (06:30)
[2023-05-11 06:32] VITALS: BP 180/90; PULSE 69; RESP 20; TEMP 36.6; O2SAT 95; BMI 23.2
--- NOTE | 2023-05-11 07:27 | W.PM.H&PU ---
History & Physical Update History & Physical Update H&P Reviewed and patient assessed: No changes noted H&P Updates: Patient has not updates to his history. No blood thinners. Has not had a port previously. Questions answered. Will leave port accessed for chemotherapy appointment tomorrow.
--- NOTE | 2023-05-11 07:30 | XR_ITS ---
Patient: BRENNA MENDEZ Facility:?[facility] Patient ID:?[id number] Site Patient ID:?[id number]. Site :?1955 Study:?XRay-Chest Portable 1v-05/11/2023 9:15:33 AM Ordering Physician:?CATHI MART Final Report: INDICATION: s/p portacath insertion TECHNIQUE: Chest 1 view COMPARISON: CT chest 10/27/2022 FINDINGS: Severe bullous emphysema. Right-sided Port-A-Cath is present with the tip in the distal SVC. No pneumothorax. Mediastinum unchanged. IMPRESSION: Placement of right-sided Port-A-Cath. No pneumothorax. Dictated by Ren Long MD @ 05/11/2023 9:44:07 AM Signed by:?Ren Long MD @05/11/2023 9:44:07 AM (Electronic Signature)
--- NOTE | 2023-05-11 07:31 | XR_ITS ---
Patient: BRENNA MENDEZ Facility:?[facility] Patient ID:?[id number] Site Patient ID:?[id number]. Site :?1955 Study:?XRay-Chest -05/11/2023 8:41:20 AM Ordering Physician:RAY Final Report: Indication: Port-A-Cath placement Technique: Two fluoroscopic images of chest. Fluoroscopic time 30.1 seconds. IMPRESSION: Fluoroscopic guidance for Port-A-Cath placement. Dictated by Ren Long MD @ 05/11/2023 9:03:03 AM Signed by:?Ren Long MD @05/11/2023 9:03:03 AM (Electronic Signature)
[2023-05-11] MEDS: CEFAZOLIN 2 GM INJ IVP (07:40)
--- NOTE | 2023-05-11 07:41 | PM.GSPRC ---
Operative Note Date of procedure: 05/11/23 Pre-op diagnosis: Stage IV lung cancer Post-op diagnosis: Same Type of Procedure: Right IJ port placement with ultrasound and fluoroscopic guidance. Indications: The patient is a 67-year-old male with T3 N0 M1a stage IV A non-small cell lung carcinoma with a Pancoast tumor of the left upper lobe. This was diagnosed in 2020 and he underwent chemoradiation and ablation. He has had regional medastinal recurrence and port placement was requested or chemotherapy. Procedure Description: After discussing the risks and benefits of the procedure, the patient signed informed consent.? The operative site was marked and the patient was brought to the operating room and placed on the operating table in supine position.? Care was taken to pad the patient's pressure points.?? The patient was then given sedation by anesthesia.?? The operative site was then prepped and draped in the usual sterile fashion.? A time-out was then performed. The patient's right internal jugular vein was visualized using ultrasound. Local anesthetic was injected into the skin overlying the vein. This was accessed percutaneously using ultrasound guidance. Using Seldinger technique, a guidewire was threaded through the needle. A skin thee was made around the wire. Next, local anesthetic was injected into the skin below the clavicle and along the proposed tract to the neck incision. A skin incision was then made with a 15 blade and a pocket created in the subcutaneous tissue with cautery. A tunneler was then used to thread the catheter from the chest wall pocket to the neck incision. Once this was done fluoroscopy was brought into the field. Over the wire the tract was dilated using fluoroscopy. The wire and the dilator were then removed leaving the sheath in the vein. Through this, the catheter was threaded. Using fluoroscopy, the catheter was positioned into the distal SVC. The catheter was noted to flush and aspirate easily. The catheter was then connected to the port. The port was placed in the pocket and secured in place with 2 0 Prolene sutures. It was noted to flush and aspirate easily. The skin was closed with absorbable suture. Glue and Steri-Strips were applied. The port was then accessed, again aspirating and flushing easily and left for the patient's chemotherapy appointment tomorrow. a Tegaderm and a protective gauze dressing were placed over the port. Instrument sponge and needle counts were correct at the end of the case. The patient was woken and taken to the PACU in stable condition. ? The patient tolerated the procedure well. Findings: Right IJ power port placed in the low SVC. Implants: Power port Anesthesia: MAC Surgeon: Kimberly Mendez MD Estimated blood loss (mL): 5 Condition: stable Disposition: same day
[2023-05-11] MEDS: LIDOCAINE 1% MDV 20 ML INJECTION (08:05)
[2023-05-11] MEDS: 0.9% SODIUM CHL 50 ML VIAL INJECTION (08:05)
[2023-05-11] MEDS: BUPIVACAINE 0.5% 30 ML INJECTION (08:05)
[2023-05-11 08:45] VITALS: BP 152/90; PULSE 77; RESP 16; TEMP 36.6; O2SAT 92
--- NOTE | 2023-05-11 08:50 | W.ANESCHARGE ---
Anesthesia Charges Start Date/Time Anesthesia Start Date: 05/11/23 Anesthesia Start Time: 07:34 Stop Date/Time Anesthesia Stop Date: 05/11/23 Anesthesia Stop Time: 08:49
--- NOTE | 2023-05-11 08:53 | W.ANESCHARGE ---
Anesthesia Charges Start Date/Time Anesthesia Start Date: 05/11/23 Anesthesia Start Time: 07:34 Stop Date/Time Anesthesia Stop Date: 05/11/23 Anesthesia Stop Time: 08:49
[2023-05-11 09:00] VITALS: BP 152/87; PULSE 76; RESP 16; O2SAT 92
[2023-05-11 09:15] VITALS: BP 161/83; PULSE 77; RESP 16; O2SAT 95
[2023-05-11 09:30] VITALS: BP 153/82; PULSE 65; RESP 16; O2SAT 96
[2023-05-11 09:45] VITALS: BP 151/76; PULSE 65; RESP 16; O2SAT 95
== END 2023-05-11 10:08 | disposition home or self-care (01) ==
PROVIDERS: PCP Nurse Practitioner Family; Visit Provider Surgery
PROC: (CPT 36561; principal; 2023-05-11 07:30)
DX: Z45.2 Encounter for adjustment and management of vascular access device (principal); C34.12 Malignant neoplasm of upper lobe, left bronchus or lung
CPT/HCPCS: 36561; 00532; 71045; 76000; 76998; C1788; J0665; J0690; J1100; J2250; J2405; J2704; J3010; J7120

== ENCOUNTER 2023-05-12 13:00 | Outpatient (RCR) | payer OTHER, SELFPAY ==
[2022-11-13 15:55] LABS: Albumin* 3.5 g/dL (3.3-5.0); Chloride* 104 mmol/L (96-114); Sodium* 136 mmol/L (135-149)
[2022-11-13 15:58] LABS: Alanine Aminotransferase* 24 U/L (4-50); Alkaline Phosphatase* 86 U/L (40-150); Anion Gap 7 mEq/L (7-15); Aspartate Amino Transferase* 27 U/L (12-35); Bilirubin Total* 0.3 mg/dL (0.1-1.5); Blood Urea Nitrogen* 25 mg/dL (7-30); Carbon Dioxide* 25 mmol/L (20-32); Creatinine* 0.8 mg/dL (0.5-1.5); Estimated Glomerular Filt Rate 96 ml/min; Total Protein* 6.1 g/dL (6.0-8.3)
[2022-11-13 15:59] LABS: Calcium* 9.1 mg/dL (8.4-10.6); Glucose* 96 mg/dL (60-115)
[2022-11-13 16:15] LABS: Basophils Percent Auto 0.7 % (0.0-3.0); Eosinophils Percent Auto 5.6 % (0.0-7.0); Hematocrit 43.6 % (37.0-53.0); Hemoglobin* 14.1 gm/dL (13.5-17.5); Lymphocytes Percent Auto 24.2 % (20-44); Mean Corpuscular HGB Conc 32 gm/dL (32-36); Mean Corpuscular Hemoglobin 29 pg (26-34); Mean Corpuscular Volume 90 fL (80-100); Monocytes Percent Auto 11.9 % (0.0-11.0); Neutrophils Percent Auto 57.6 % (42.0-72.0); Platelet Count* 208 K/uL (140-440); RDW Coefficient of Variation % 14.9 % (11.5-15.5); Red Blood Count 4.86 m/uL (4.30-5.90); White Blood Count* 4.29 K/uL (4.50-11.00)
[2022-11-13 16:18] LABS: Slide Review Reflex No
[2022-11-14 14:35] VITALS: BP 134/73; PULSE 84; RESP 16; TEMP 36.3; O2SAT 95
[2022-11-14] MEDS: DURVALUMAB 1,500 MG, TUBING PRIMARY 1 EACH, In-line 0.2 micron filter set 1 EACH in 0.9... 280 MG IVPB (14:49)
[2022-11-15 19:00] LABS: Cortisol, Serum 7.3 ug/dL
--- NOTE | 2022-12-09 09:16 | URNOTE ---
Received request for prior auth for Durvalumab (gilbert) [id number]. Per [employer], this has been approved 12/08/2022-06/06/2023. Approval #[id number]
[2022-12-11 14:48] LABS: Basophils Absolute Auto 0.06 K/uL (0.00-0.30); Basophils Percent Auto 0.9 % (0.0-3.0); Eosinophils Absolute Auto 0.29 K/uL (0.00-0.50); Eosinophils Percent Auto 4.6 % (0.0-7.0); Hematocrit 42.8 % (37.0-53.0); Hemoglobin* 13.8 gm/dL (13.5-17.5); Immature Granulocytes Abs Auto 0.01 K/uL (0.00-0.30); Immature Granulocytes Pct Auto 0.2 %; Lymphocytes Absolute Auto 1.44 K/uL (0.90-2.90); Lymphocytes Percent Auto 22.7 % (20-44); Mean Corpuscular HGB Conc 32 gm/dL (32-36); Mean Corpuscular Hemoglobin 29 pg (26-34); Mean Corpuscular Volume 89 fL (80-100); Monocytes Percent Auto 6.6 % (0.0-11.0); Neutrophils Absolute Auto 4.12 K/uL (1.7-7.0); Platelet Count* 320 K/uL (140-440); RDW Coefficient of Variation % 14.5 % (11.5-15.5); Red Blood Count 4.83 m/uL (4.30-5.90); White Blood Count* 6.34 K/uL (4.50-11.00)
[2022-12-11 14:51] LABS: Slide Review Reflex No
[2022-12-11 15:03] LABS: Chloride* 104 mmol/L (96-114)
[2022-12-11 15:04] LABS: Potassium* 3.8 mmol/L (3.6-5.1); Sodium* 136 mmol/L (135-149)
[2022-12-11 15:06] LABS: Alanine Aminotransferase* 21 U/L (4-50); Alkaline Phosphatase* 109 U/L (40-150); Anion Gap 10 mEq/L (7-15); Aspartate Amino Transferase* 23 U/L (12-35); Bilirubin Total* 0.4 mg/dL (0.1-1.5); Blood Urea Nitrogen* 13 mg/dL (7-30); Carbon Dioxide* 22 mmol/L (20-32); Creatinine* 0.7 mg/dL (0.5-1.5); Estimated Glomerular Filt Rate 100 ml/min; Glucose* 150 mg/dL (60-115)
[2022-12-11 15:07] LABS: Calcium* 9.7 mg/dL (8.4-10.6)
[2022-12-12 14:45] VITALS: BP 148/77; PULSE 69; RESP 18; TEMP 36.6; O2SAT 96
[2022-12-12] MEDS: DURVALUMAB 1,500 MG, TUBING PRIMARY 1 EACH, In-line 0.2 micron filter set 1 EACH in 0.9... 280 MG IVPB (14:58)
[2023-01-08 15:24] LABS: Basophils Absolute Auto 0.07 K/uL (0.00-0.30); Eosinophils Absolute Auto 0.35 K/uL (0.00-0.50); Hematocrit 42.4 % (37.0-53.0); Hemoglobin* 13.8 gm/dL (13.5-17.5); Immature Granulocytes Abs Auto 0.05 K/uL (0.00-0.30); Immature Granulocytes Pct Auto 0.7 %; Lymphocytes Absolute Auto 1.76 K/uL (0.90-2.90); Lymphocytes Percent Auto 24.9 % (20-44); Mean Corpuscular HGB Conc 33 gm/dL (32-36); Mean Corpuscular Hemoglobin 30 pg (26-34); Mean Corpuscular Volume 91 fL (80-100); Neutrophils Absolute Auto 4.13 K/uL (1.7-7.0); Neutrophils Percent Auto 58.4 % (42.0-72.0); Platelet Count* 249 K/uL (140-440); RDW Coefficient of Variation % 15.7 % (11.5-15.5); Red Blood Count 4.68 m/uL (4.30-5.90); White Blood Count* 7.07 K/uL (4.50-11.00)
[2023-01-08 15:27] LABS: Slide Review Reflex No
[2023-01-08 15:44] LABS: Chloride* 107 mmol/L (96-114)
[2023-01-08 15:45] LABS: Albumin* 3.9 g/dL (3.3-5.0)
[2023-01-08 15:46] LABS: Sodium* 135 mmol/L (135-149)
[2023-01-08 15:48] LABS: Alanine Aminotransferase* 20 U/L (4-50); Alkaline Phosphatase* 90 U/L (40-150); Anion Gap 5 mEq/L (7-15); Aspartate Amino Transferase* 27 U/L (12-35); Bilirubin Total* 0.4 mg/dL (0.1-1.5); Blood Urea Nitrogen* 25 mg/dL (7-30); Carbon Dioxide* 23 mmol/L (20-32); Creatinine* 0.9 mg/dL (0.5-1.5); Estimated Glomerular Filt Rate 92 ml/min; Total Protein* 6.7 g/dL (6.0-8.3)
[2023-01-08 15:49] LABS: Calcium* 8.9 mg/dL (8.4-10.6); Glucose* 65 mg/dL (60-115)
[2023-01-09 14:46] VITALS: BP 138/83; PULSE 73; RESP 18; TEMP 36.3; O2SAT 96
[2023-01-09] MEDS: DURVALUMAB 1,500 MG, TUBING PRIMARY 1 EACH, In-line 0.2 micron filter set 1 EACH in 0.9... 280 MG IVPB (15:20)
[2023-01-10 18:57] LABS: Cortisol, Serum 4.7 ug/dL
[2023-02-02 15:11] LABS: Basophils Absolute Auto 0.07 K/uL (0.00-0.30); Basophils Percent Auto 0.9 % (0.0-3.0); Eosinophils Absolute Auto 0.32 K/uL (0.00-0.50); Hematocrit 43.8 % (37.0-53.0); Hemoglobin* 14.2 gm/dL (13.5-17.5); Immature Granulocytes Abs Auto 0.03 K/uL (0.00-0.30); Immature Granulocytes Pct Auto 0.4 %; Lymphocytes Absolute Auto 1.66 K/uL (0.90-2.90); Lymphocytes Percent Auto 20.8 % (20-44); Mean Corpuscular HGB Conc 32 gm/dL (32-36); Mean Corpuscular Hemoglobin 29 pg (26-34); Mean Corpuscular Volume 90 fL (80-100); Monocytes Percent Auto 8.6 % (0.0-11.0); Neutrophils Absolute Auto 5.22 K/uL (1.7-7.0); Neutrophils Percent Auto 65.3 % (42.0-72.0); Platelet Count* 282 K/uL (140-440); RDW Coefficient of Variation % 15.6 % (11.5-15.5); Red Blood Count 4.85 m/uL (4.30-5.90); White Blood Count* 7.99 K/uL (4.50-11.00)
[2023-02-02 15:19] LABS: Slide Review Reflex No
[2023-02-02 15:30] LABS: Albumin* 4.1 g/dL (3.3-5.0); Chloride* 105 mmol/L (96-114); Sodium* 137 mmol/L (135-149)
[2023-02-02 15:31] LABS: Potassium* 4.2 mmol/L (3.6-5.1)
[2023-02-02 15:33] LABS: Alanine Aminotransferase* 24 U/L (4-50); Alkaline Phosphatase* 90 U/L (40-150); Anion Gap 9 mEq/L (7-15); Aspartate Amino Transferase* 25 U/L (12-35); Bilirubin Total* 0.4 mg/dL (0.1-1.5); Blood Urea Nitrogen* 20 mg/dL (7-30); Carbon Dioxide* 23 mmol/L (20-32); Creatinine* 0.7 mg/dL (0.5-1.5); Estimated Glomerular Filt Rate 100 ml/min; Glucose* 98 mg/dL (60-115); Total Protein* 6.8 g/dL (6.0-8.3)
[2023-02-02 15:34] LABS: Calcium* 9.5 mg/dL (8.4-10.6)
[2023-02-05 10:57] LABS: Cortisol, Serum 5.6 ug/dL
[2023-02-10 14:35] VITALS: BP 142/82; PULSE 77; RESP 16; TEMP 36.5; O2SAT 96
[2023-02-10] MEDS: DURVALUMAB 1,500 MG, TUBING PRIMARY 1 EACH, In-line 0.2 micron filter set 1 EACH in 0.9... 280 MG IVPB (15:16)
[2023-03-10 14:59] LABS: Basophils Absolute Auto 0.08 K/uL (0.00-0.30); Eosinophils Absolute Auto 0.41 K/uL (0.00-0.50); Eosinophils Percent Auto 5.2 % (0.0-7.0); Hematocrit 46.3 % (37.0-53.0); Hemoglobin* 15.3 gm/dL (13.5-17.5); Immature Granulocytes Abs Auto 0.06 K/uL (0.00-0.30); Immature Granulocytes Pct Auto 0.8 %; Mean Corpuscular HGB Conc 33 gm/dL (32-36); Mean Corpuscular Hemoglobin 30 pg (26-34); Mean Corpuscular Volume 90 fL (80-100); Monocytes Percent Auto 7.7 % (0.0-11.0); Neutrophils Absolute Auto 5.24 K/uL (1.7-7.0); Neutrophils Percent Auto 66.3 % (42.0-72.0); Platelet Count* 277 K/uL (140-440); RDW Coefficient of Variation % 15.1 % (11.5-15.5); Red Blood Count 5.14 m/uL (4.30-5.90)
[2023-03-10 15:09] LABS: Albumin* 4.4 g/dL (3.3-5.0); Chloride* 101 mmol/L (96-114)
[2023-03-10 15:10] LABS: Potassium* 4.2 mmol/L (3.6-5.1); Sodium* 133 mmol/L (135-149)
[2023-03-10 15:12] LABS: Anion Gap 10 mEq/L (7-15); Bilirubin Total* 0.4 mg/dL (0.1-1.5); Carbon Dioxide* 22 mmol/L (20-32); Creatinine* 1.1 mg/dL (0.5-1.5); Estimated Glomerular Filt Rate 73 ml/min
[2023-03-10 15:13] LABS: Alanine Aminotransferase* 24 U/L (4-50); Alkaline Phosphatase* 106 U/L (40-150); Aspartate Amino Transferase* 22 U/L (12-35); Blood Urea Nitrogen* 25 mg/dL (7-30); Calcium* 9.5 mg/dL (8.4-10.6); Glucose* 123 mg/dL (60-115); Total Protein* 7.2 g/dL (6.0-8.3)
[2023-03-10 15:29] LABS: Slide Review Reflex No
[2023-03-12 23:29] LABS: Cortisol, Serum 7.2 ug/dL
[2023-03-13] MEDS: DURVALUMAB 1,500 MG, TUBING PRIMARY 1 EACH, In-line 0.2 micron filter set 1 EACH in 0.9... 280 MG IVPB (14:55)
[2023-03-13] MEDS: 0.9 % SODIUM CHLORIDE 250 ml IV (16:07)
[2023-03-13 16:08] VITALS: BP 132/68; PULSE 82; RESP 16; TEMP 36.4; O2SAT 98
[2023-03-13] MEDS: SODIUM CHLORIDE 0.9 % (FLUSH) 10 ML SYRINGE IVF (16:08)
[2023-04-07 14:46] LABS: Basophils Absolute Auto 0.06 K/uL (0.00-0.30); Basophils Percent Auto 0.7 % (0.0-3.0); Eosinophils Absolute Auto 0.37 K/uL (0.00-0.50); Eosinophils Percent Auto 4.6 % (0.0-7.0); Hematocrit 44.7 % (37.0-53.0); Hemoglobin* 14.3 gm/dL (13.5-17.5); Immature Granulocytes Abs Auto 0.02 K/uL (0.00-0.30); Immature Granulocytes Pct Auto 0.2 %; Lymphocytes Absolute Auto 1.66 K/uL (0.90-2.90); Lymphocytes Percent Auto 20.6 % (20-44); Mean Corpuscular HGB Conc 32 gm/dL (32-36); Mean Corpuscular Hemoglobin 29 pg (26-34); Mean Corpuscular Volume 90 fL (80-100); Monocytes Percent Auto 8.9 % (0.0-11.0); Neutrophils Absolute Auto 5.24 K/uL (1.7-7.0); Platelet Count* 279 K/uL (140-440); RDW Coefficient of Variation % 14.7 % (11.5-15.5); Red Blood Count 4.95 m/uL (4.30-5.90); White Blood Count* 8.07 K/uL (4.50-11.00)
[2023-04-07 14:48] LABS: Slide Review Reflex No
[2023-04-07 15:49] LABS: Albumin* 4.2 g/dL (3.3-5.0); Chloride* 106 mmol/L (96-114)
[2023-04-07 15:50] LABS: Sodium* 137 mmol/L (135-149)
[2023-04-07 15:52] LABS: Anion Gap 8 mEq/L (7-15); Aspartate Amino Transferase* 23 U/L (12-35); Bilirubin Total* 0.3 mg/dL (0.1-1.5); Blood Urea Nitrogen* 19 mg/dL (7-30); Carbon Dioxide* 23 mmol/L (20-32); Creatinine* 0.8 mg/dL (0.5-1.5); Estimated Glomerular Filt Rate 96 ml/min; Potassium* 4.1 mmol/L (3.6-5.1); Total Protein* 7.1 g/dL (6.0-8.3)
[2023-04-07 15:53] LABS: Alanine Aminotransferase* 23 U/L (4-50); Alkaline Phosphatase* 105 U/L (40-150); Calcium* 9.5 mg/dL (8.4-10.6); Glucose* 79 mg/dL (60-115)
[2023-04-10 14:33] VITALS: BP 152/72; PULSE 85; RESP 16; TEMP 36.2; O2SAT 95
[2023-04-10] MEDS: 0.9 % SODIUM CHLORIDE 250 ml IV (14:48)
[2023-04-10] MEDS: SODIUM CHLORIDE 0.9 % (FLUSH) 10 ML SYRINGE IVF (14:48)
[2023-04-10] MEDS: DURVALUMAB 1,500 MG, TUBING PRIMARY 1 EACH, In-line 0.2 micron filter set 1 EACH in 0.9... 280 MG IVPB (14:55)
--- NOTE | 2023-04-17 16:03 | ONC.NURNOTE ---
Pt called asking for to reschedule lab draw 05/05 to prior to MD appt 05/06, as he will be returning from a trip late evening 05/05. Appts adjusted for labs 05/06 1330, Luis Enrique 1500.
[2023-04-28] MEDS: CYANOCOBALAMIN 1,000 MCG/ML inj 1000 MCG IM (15:09)
--- NOTE | 2023-04-29 10:31 | URNOTE ---
Addendum entered by Gladis Luo RN 04/30/23 10:28: Pegfilgrastim-jmdb (Q5108) has been approved, 6mg x 5 doses. 05/06/2023-08/04/2023 Auth #[id number] Original Note: Pemetrexed (J9305), Dexamethasone (J1100), Carboplatin (J9045), Fosaprepitant (J1453) and Palonosetron (J2469) have been approved by [employer] on behalf of [facility]. 05/06/2023-09/09/2023 for 6 cycles. Auth #[id number] Pegfilgrastim-jmdb (Q5108) is pending.
--- NOTE | 2023-04-30 13:10 | ONC.NURNOTE ---
In reviewing treatment plan with Dr. Dudley noted was dexamethasone for 3 days with chemo regime. Dr. Dudley specifically did not pick that in plan and was asked but stated she didn't want to add that now.
[2023-05-06 15:09] LABS: Basophils Absolute Auto 0.08 K/uL (0.00-0.30); Eosinophils Percent Auto 7.4 % (0.0-7.0); Hematocrit 44.7 % (37.0-53.0); Hemoglobin* 14.5 gm/dL (13.5-17.5); Immature Granulocytes Abs Auto 0.02 K/uL (0.00-0.30); Immature Granulocytes Pct Auto 0.3 %; Lymphocytes Percent Auto 16.5 % (20-44); Mean Corpuscular HGB Conc 32 gm/dL (32-36); Mean Corpuscular Hemoglobin 30 pg (26-34); Mean Corpuscular Volume 91 fL (80-100); Monocytes Percent Auto 9.7 % (0.0-11.0); Neutrophils Absolute Auto 5.08 K/uL (1.7-7.0); Neutrophils Percent Auto 65.1 % (42.0-72.0); Platelet Count* 274 K/uL (140-440); RDW Coefficient of Variation % 15.1 % (11.5-15.5); Red Blood Count 4.89 m/uL (4.30-5.90); White Blood Count* 7.81 K/uL (4.50-11.00)
[2023-05-06 15:12] LABS: Slide Review Reflex No
[2023-05-06 15:23] LABS: Albumin* 4.3 g/dL (3.3-5.0); Chloride* 105 mmol/L (96-114); Sodium* 139 mmol/L (135-149)
[2023-05-06 15:24] LABS: Potassium* 4.9 mmol/L (3.6-5.1)
[2023-05-06 15:25] LABS: Estimated Glomerular Filt Rate 81 ml/min
[2023-05-06 15:26] LABS: Alanine Aminotransferase* 24 U/L (4-50); Alkaline Phosphatase* 102 U/L (40-150); Anion Gap 9 mEq/L (7-15); Aspartate Amino Transferase* 22 U/L (12-35); Bilirubin Total* 0.4 mg/dL (0.1-1.5); Blood Urea Nitrogen* 33 mg/dL (7-30); Carbon Dioxide* 25 mmol/L (20-32); Glucose* 103 mg/dL (60-115); Total Protein* 7.2 g/dL (6.0-8.3)
[2023-05-06 15:27] LABS: Calcium* 9.6 mg/dL (8.4-10.6)
--- NOTE | 2023-05-08 13:39 | ONC.NURNOTE ---
Patient in for immunotherapy and it was decided that he would come in Thursday at 1300 for immunotherapy and chemo. Bakery Supervisor spoke with She in same day surgery where port is to be placed Thursday05/11/2023 and was asked to put note in to keep patient's port accessed for chemotherapy on 05/12/2023. Patient agrees with this and pharmacy was called and treatment moved
[2023-05-12 13:06] VITALS: BP 155/81; PULSE 79; RESP 16; TEMP 36; O2SAT 93
[2023-05-12] MEDS: dexAMETHasone 4 MG TABLET 12 MG PO (13:38)
[2023-05-12] MEDS: DURVALUMAB 1,500 MG, TUBING PRIMARY 1 EACH, In-line 0.2 micron filter set 1 EACH in 0.9... 280 MG IVPB (13:49)
[2023-05-12] MEDS: PALONOSETRON 0.25 MG/5 ML inj IV (14:56)
[2023-05-12] MEDS: FOSAPREPITANT 150 MG inj 150 MG in 0.9 % SODIUM CHLORIDE 250 ml 250 ML 700 MG IVPB (14:57)
[2023-05-12] MEDS: PEMETREXED IV (15:27)
[2023-05-12] MEDS: TUBING SECONDARY IV (15:27)
[2023-05-12] MEDS: [UNRECOGNIZED DRUG - OTHER] IV (15:27)
== END 2023-05-12 23:59 | disposition home or self-care (01) ==
LOC: CCIC 13:00
PROVIDERS: Clinical Nurse Specialist; PCP Nurse Practitioner Family; Referring Provider Nurse Practitioner Family; Visit Provider Internal Medicine Hematology & Oncology
DX: Z51.11 Encounter for antineoplastic chemotherapy (principal); C34.12 Malignant neoplasm of upper lobe, left bronchus or lung
CPT/HCPCS: 36415; 80053; 82533; 84443; 85025; 96372; 96376; 96411; 96413; 96417; 99211; 99212; 99213; 99214; 99215; G0463; A9270; J1453; J2469; J3420; J7050; J9045; J9173; J9305

== ENCOUNTER 2023-07-02 10:27 | Outpatient (CLI) | payer OTHER, SELFPAY ==
--- NOTE | 2023-07-02 10:45 | US_ITS ---
Patient: [facility] Facility:?[facility] Patient ID:?[id number] Site Patient ID:?[id number] Site :?1955 Study:?US-Extremity Bilateral LEV BILATERAL-07/02/2023 11:11:45 AM Ordering Physician:REY HIGHTOWER M.D. Final Report: INDICATION: Antineoplastic Chemotherapy COMPARISON: None. TECHNIQUE: A compression venous ultrasound exam was performed of the left lower extremity using lux-scale imaging, color Doppler and spectral Doppler analysis. FINDINGS: Sonographic imaging of the left lower extremity demonstrates normal compressibility and color Doppler venous blood flow within the common femoral vein, deep femoral vein, and the proximal greater saphenous vein. Within the thigh, the femoral vein is patent and compressible. At a lower level, the popliteal and posterior tibial veins also show normal compressibility and color Doppler venous blood flow. Limited imaging of the contralateral groin demonstrates a normal spectral waveform and color Doppler venous blood flow within the right common femoral vein. IMPRESSION: Normal venous ultrasound exam. No evidence of deep vein thrombosis within the left lower extremity. Dictated by Ren Long MD @ 07/02/2023 11:24:12 AM Signed by:?Ren Long MD @07/02/2023 11:24:12 AM (Electronic Signature)
== END 2023-07-02 10:28 | disposition home or self-care (01) ==
LOC: US 10:27
PROVIDERS: PCP Nurse Practitioner Family; Visit Provider Internal Medicine Hematology & Oncology
DX: Z51.11 Encounter for antineoplastic chemotherapy (principal)
CPT/HCPCS: 93970

== ENCOUNTER 2023-07-06 14:39 | Outpatient (CLI) | payer OTHER, SELFPAY ==
--- NOTE | 2023-07-06 15:00 | US_ITS ---
[facility] Facility:?[facility] Patient ID:?[id number] Site Patient ID:?[id number]. Site :?[id number] Study:?US-Extremity Bilateral SUZETTE BILATERAL-07/06/2023 3:39:40 PM Ordering Physician:?REY BERNARD M.D. Final Report: DUPLEX ARTERIAL UTRASOUND BILATERAL LOWER EXTREMITY CLINICAL HISTORY: Bilateral lower extremity numbness. COMPARISON: None. TECHNIQUE: The bilateral lower extremity arteries were examined per exam specific protocol with lux-scale ultrasound, color-flow and Doppler spectral analysis. Peak systolic velocities (PSV), Doppler waveform quality and Velocity Ratios if applicable, were documented at sites per exam specific protocol. FINDINGS: RIGHT: PSV (cm/second). Waveform (Tri-T, Bi-B Barron-M). FIRST AID TRAINER: 99.1 Barron DFA: 100.9 Barron FA PRX: 9.5 Barron FA MID: 12.7 Barron FA DISTAL: 39.4 Barron POP A: 21.8 Barron YURIY A: 15.2 Barron VETERANS ADVISER: 15.5 Barron ELI: 15.8 Barron DPA: 5.0 Barron LEFT: PSV (cm/second). Waveform (Tri-T, Bi-B Barron-M). FIRST AID TRAINER: 79.7 Barron DFA: 150.1 Barron FA PRX: 9.4 Barron FA MID: 0.0 Barron FA DISTAL: 44.8 Barron POP A: 28.3 Barron YURIY A: 13.0 Barron VETERANS ADVISER: 12.7 Barron ELI: 18.6 Barron DPA: 14.2 Barron Right Lower Extremity: Monophasic waveforms in the common femoral artery, indicative of aortoiliac inflow disease. Proximal to mid SFA appears occluded with reconstitution at the mid to distal portion. Left Lower Extremity: Monophasic waveforms the common femoral artery made may be indicative of aortoiliac inflow disease. Proximal to mid SFA occlusion with distal reconstitution. 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 Consider further characterization with contrast-enhanced CT angiogram of the abdomen and pelvis with lower extremity runoff. Bud Bah M.D. Vascular and Interventional [facility]iology [email or web address] BRISSA/nunu eddy/Dictated by: Bud Bah MD @ 07/07/2023 2:55:00 PM Signed by:Ivonne Bah MD @07/13/2023 12:32:39 PM (Electronic Signature)
== END 2023-07-06 14:40 | disposition home or self-care (01) ==
LOC: US 14:39
PROVIDERS: PCP Nurse Practitioner Family; Visit Provider Internal Medicine Hematology & Oncology
DX: R20.0 Anesthesia of skin (principal); I77.1 Stricture of artery; R20.2 Paresthesia of skin; Z51.11 Encounter for antineoplastic chemotherapy
CPT/HCPCS: 93926

== ENCOUNTER 2023-09-14 09:19 | Outpatient (CLI) | payer OTHER, SELFPAY ==
--- NOTE | 2023-09-14 10:15 | CRLHL7_ITS ---
For Patients: As a result of the Cures Act, medical imaging exams and procedure reports are released immediately into your electronic medical record. You may view this report before your referring provider. If you have questions, please contact your health care provider. INDICATION: Stage IV lung cancer. TECHNIQUE: Multiplanar T1 weighted images with and without gadolinium contrast. Axial FLAIR T2 and diffusion weighted images. COMPARISON: Previous MRI brain dated 04/07/2023. FINDINGS: No enhancing intra-axial or extra-axial lesions. No mass effect. No evidence of intracranial metastatic neoplasm. Ventricles and subarachnoid spaces stable with mild volume loss. No evidence of acute ischemic infarction no areas of diffusion restriction. No evidence of intracranial hemorrhage. Multiple small foci of FLAIR/T2 hyperintensity within the cerebral white matter and basal ganglia and nancy consistent with chronic small vessel ischemic disease appears stable. Bilateral partial mastoid effusions minor mucosal thickening in the maxillary and ethmoid sinuses. IMPRESSION: 1. No evidence of intracranial metastatic neoplasm. No evidence of acute intracranial abnormality. No significant change since 04/07/2023. 2. Mild to moderate chronic small vessel ischemic disease. Partial bilateral mastoid effusions. Dictated by Fabrizio Obregon MD @ 09/15/2023 9:39:25 AM (Electronically Signed)
== END 2023-09-14 09:20 | disposition home or self-care (01) ==
PROVIDERS: PCP Nurse Practitioner Family; Visit Provider Internal Medicine Hematology & Oncology
DX: C34.92 Malignant neoplasm of unspecified part of left bronchus or lung (principal); I67.82 Cerebral ischemia; Z51.11 Encounter for antineoplastic chemotherapy
CPT/HCPCS: 70553; A9575

== ENCOUNTER 2023-09-20 13:40 | Emergency (ER) | payer OTHER, SELFPAY ==
[2023-09-20 13:42] VITALS: BP 96/55; PULSE 63; RESP 16; TEMP 35.7; O2SAT 97; BMI 20.6
--- NOTE | 2023-09-20 13:47 | ED.GENADULT ---
HPI - General Adult General Time Seen by Provider: 13:47 Date Seen: 09/20/23 Chief complaint: Weakness Stated complaint: Ambulance Time Seen by Provider: 09/20/23 13:46 Source: patient, EMS, RN notes reviewed and old records reviewed Mode of arrival: EMS Limitations: no limitations History of Present Illness HPI narrative: This 67-year-old male was brought in by ambulance from home after episode of severe weakness, dizziness. He states he was at home, had a chocolate shake and then develops severe abdominal cramping, had nausea vomiting. He felt like he could not have a bowel movement, had been constipated but does report diarrhea subsequently. No abdominal pain at this time but it was severe at the time. He notes he is feeling better, actually would like a sip of water to just wet his mouth. He felt severe imbalance and weakness when this happened. He notes he is feeling much better. He has had no fevers or chills. With these symptoms, he states he actually felt clammy. No active chest pain, no worsening of his baseline shortness of breath. He states he always has some mild shortness of breath but does not feel any different. 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 He did have chemo and radiation. He had left paraspinal metastases, right shoulder metastases with radiation treatment. He is currently on cisplatinum and Alimta with durvalumab. Related Data Home Medications ?Medication ?Instructions ?Recorded ?Confirmed lisinopril 10 mg tablet 10 mg PO DAILY 09/18/21 08/26/23 aspirin 81 mg tablet,delayed 81 mg PO QDAY 08/26/23 09/15/23 release (Adult Low Dose Aspirin) Previous Rx's ?Medication ?Instructions ?Recorded folic acid 1 mg tablet 1 mg PO QDAY #90 tabs 04/28/23 calcium carbonate 500 mg-vitamin 1 tab PO BID #90 tabs 05/18/23 D3 10 mcg (400 unit) tablet (Calcium 500 With D) gabapentin 100 mg capsule 100 mg PO HS #90 caps 06/02/23 levothyroxine 112 mcg tablet 112 mcg PO DAILY #30 tabs 06/02/23 Symbicort 80 mcg-4.5 mcg/actuation 2 puff inhalation BID #10.2 grams 06/26/23 HFA aerosol inhaler (budesonide-formoterol) vitamin B complex 1 tab PO QDAY #60 tabs 06/29/23 magnesium oxide 400 mg (241.3 mg 400 mg PO BID #100 tabs 07/15/23 magnesium) tablet famotidine 20 mg tablet (Pepcid) 20 mg PO BID #60 tabs 08/26/23 ondansetron HCl 4 mg tablet 4 mg PO Q8H #60 tabs 08/26/23 prednisone 10 mg tablet 10 mg PO QDAY #30 tabs 08/26/23 prochlorperazine maleate 5 mg 5 mg PO TID PRN nausea and 08/26/23 tablet (Compazine) vomiting #90 tabs tramadol 50 mg tablet 50 mg PO Q6H PRN pain #60 tabs 08/26/23 cyclobenzaprine 10 mg tablet 10 mg PO TID PRN muscle spasm #180 09/16/23 tabs Allergies Allergy/AdvReac Type Severity Reaction Status Date / Time No Known Drug Allergies Allergy Verified 09/20/23 14:59 Review of Systems Status of ROS: Reports: 6 or more systems reviewed and unremarkable except as noted in History and below [facility] Medical History 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 - Hypothyroidism due to medicaments and other exogenous substances (ICD-10) Dyspnea ?R06.00 - Dyspnea, unspecified (ICD-10) Bilateral leg cramps ?R25.2 - Cramp and spasm (ICD-10) Hyperkalemia ?E87.5 - Hyperkalemia (ICD-10) Cervical spinal stenosis ?M48.02 - Spinal stenosis, cervical region (ICD-10) Central venous catheter in place ?Z78.9 - Other specified health status (ICD-10) Cancer associated pain ?G89.3 - Neoplasm related pain (acute) (chronic) (ICD-10) Emphysema/COPD ?J43.9 - Emphysema, unspecified (ICD-10) Dermatitis ?L30.9 - Dermatitis, unspecified (ICD-10) Colon polyp ?K63.5 - Polyp of colon (ICD-10) Tobacco use disorder ?F17.200 - Nicotine dependence, unspecified, uncomplicated (ICD-10) Surgical History S/P hernia repair ?Z98.890 - Other specified postprocedural states (ICD-10) ?Z87.19 - Personal history of other diseases of the digestive system (ICD-10) History of appendectomy ?Z90.49 - Acquired absence of other specified parts of digestive tract (ICD-10) H/O colonoscopy ?Z98.890 - Other specified postprocedural states (ICD-10) Social History Narrative: . 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 Smoker 1.5 packs per day for 45 years. Drinks 2-3 beers per day. What is your current living situation?: I presently have a place to live Smoking Status: Current every day smoker How often do you have a drink containing alcohol: 2-4 times a month How often do you have six or more drinks on one occasion: Never AUDIT-C Alcohol total score: 2 Non-prescribed substance use: denies use Caffeine: Yes service: No Exam Const: Vital Signs, click to edit/add: Vital Signs - 24 hr 09/20/23 13:42 09/20/23 13:53 Temperature 96.2 F L Pulse Rate [Pulse Oximeter] 63 Respiratory Rate 16 Blood Pressure [Ri ght Upper Arm] 96/55 L Pulse Oximetry 97 96 Oxygen Delivery Me thod Room Air This 67-year-old male is alert and interactive, no apparent distress but looks like he does not feel well, seen in exam room 3. Able speak in complete sentences. He is of slender frame/looks than. Skin is cool and dry throughout. Sclera clear, conjugate gaze. Able to speak in complete sentences and speech normal. Oral mucosa without any acute changes but does look dry. Neck is supple, no adenopathy. Lungs actually are clear, no wheeze or crackles. CV regular rate rhythm, no murmur, normal S1-S2, no S3-S4. Has a visible port underlying the skin the right upper chest wall. No overlying skin changes there. Abdomen is soft, nondistended, no organomegaly, no masses but do not hear any bowel sounds. No lower extremity edema. He is able to move arms legs, no focal neurologic deficits noted at this time. Documenting provider has reviewed patient's vital signs: yes Course Course ED Course: This is a patient with stage IV lung cancer with weakness, dizziness and abdominal symptoms initially. Will obtain head CT, CT imaging of his abdomen pelvis. Will initiate a L of IV fluids. Will check a full complement of labs. It is possible that the chocolate drink he drank just gave him significant abdominal cramping and issues, abdominal pain certainly can cause as vasovagal reactions. He states he is feeling better without any intervention at this time. Will watch him on pulse oximetry here. Reevaluation(s) Time of Reevaluation #1: 16:27 Reevaluation #1: Have reviewed with patient and his his CT findings. We do need to collect urinalysis just ensure no UTI. He states he feels much better. We did discuss that there is mild colon wall thickening, he could have colitis. He had been feeling constipated, this could have explained why he had such severe pain, did end up having diarrhea eventually but significant abdominal pain and cramping. He states he is feeling much better. We did discuss that he could have more diarrhea and if it is problematic, worsening, associated with bloody diarrhea or fever, would need re-evaluation. I do not know if he is going to have ongoing issues. At this time he is produce no further stool, do think it is reasonable to allow him to discharge if urinalysis is negative. We also reviewed that his aneurysm looks slightly larger but was compared to something from 2022. It currently is measuring 3.8 cm, is an infrarenal abdominal aortic aneurysm. He does follow with [place] [facility]. This certainly does not look unstable, is certainly not enlarged to a point that he needs any emergent intervention. Dr. Dang will follow up on the urinalysis, if negative discharge to home. If positive, believe he can discharge to home with oral antibiotics. Vital Signs Vital signs: Initial Vital Signs Temperature 96.2 F L 09/20/23 13:42 Temperature Source Temporal Artery Scan 09/20/23 13:42 Pulse Rate 63 09/20/23 13:42 Pulse Rhythm Regular 09/20/23 13:42 Respiratory Rate 16 09/20/23 13:42 Blood Pressure 96/55 L 09/20/23 13:42 Blood Pressure Mean 68 L 09/20/23 13:42 Blood Pressure Position Supine 09/20/23 13:42 Pulse Oximetry 97 09/20/23 13:42 Oxygen Delivery Method Room Air 09/20/23 13:42 Vital Signs Temperature 96.2 F L 09/20/23 13:42 Pulse Rate 63 09/20/23 13:42 Respiratory Rate 16 09/20/23 13:42 Blood Pressure 96/55 L 09/20/23 13:42 Pulse Oximetry 97 09/20/23 13:42 Oxygen Delivery Method Room Air 09/20/23 13:42 Temperature 96.2 F L 09/20/23 13:42 Pulse Rate 63 09/20/23 13:42 Respiratory Rate 16 09/20/23 13:42 Blood Pressure 96/55 L 09/20/23 13:42 Pulse Oximetry 96 09/20/23 13:53 Oxygen Delivery Method Room Air 09/20/23 13:42 Medications Administered Medications: Discontinued Medications Generic Name Dose Route Start Last Admin Trade Name Freq PRN Reason Stop Dose Admin Sodium Chloride 1,000 mls @ 1,000 mls/hr 09/20/23 14:04 09/20/23 15:24 0.9 % Sodium Chloride 1000 Ml IV 09/20/23 15:03 Infused .Q1H SANJANA Infusion Medical Decision Making Lab Data Lab results reviewed: Yes I reviewed the patient's lab results Lab results narrative: Hemoglobin was 8.9 on September 13. Labs: Lab Results 09/20/23 09/20/23 Range/Units 14:12 16:35 WBC 9.25 (4.50-11.00) K/uL RBC 2.67 L (4.30-5.90) m/uL Hgb 9.1 L (13.5-17.5) gm/dL Hct 27.6 L (37.0-53.0) % MCV 103 H (80-100) fL MCH 34 (26-34) pg MCHC 33 (32-36) gm/dL RDW Coeff of Jolie 18.2 H (11.5-15.5) % Plt Count 203 (140-440) K/uL Neut % (Auto) 89.2 H (42.0-72.0) % Lymph % (Auto) 7.1 L (20-44) % Coal % (Auto) 0.4 (0.0-11.0) % Eos % (Auto) 2.2 (0.0-7.0) % Baso % (Auto) 0.6 (0.0-3.0) % Neut # (Auto) 8.30 H (1.7-7.0) K/uL Lymph # (Auto) 0.70 L (0.90-2.90) K/uL Coal # (Auto) 0.00 (0.00-0.90) K/UL Eos # (Auto) 0.20 (0.00-0.50) K/uL Baso # (Auto) 0.06 (0.00-0.30) K/uL Abs Immat Gran (auto) 0.05 (0.00-0.30) K/uL Imm/Tot Granulo (auto) 0.5 % Diff Slide Review Acceptable Review (Acceptable) Sodium 132 L (135-149) mmol/L Potassium 4.4 (3.6-5.1) mmol/L Chloride 104 (96-114) mmol/L Carbon Dioxide 20 (20-32) mmol/L Anion Gap 8 (7-15) mEq/L BUN 35 H (7-30) mg/dL Creatinine 1.5 (0.5-1.5) mg/dL Estimated Creat Clear 46.52 Estimated GFR 50 ml/min Glucose 164 H (60-115) mg/dL Lactate 1.3 (0.5-1.9) mmol/L Calcium 9.5 (8.4-10.6) mg/dL Magnesium 2.8 H (1.5-2.6) mg/dL Total Bilirubin 0.5 (0.1-1.5) mg/dL AST 33 (12-35) U/L ALT 26 (4-50) U/L Alkaline Phosphatase 109 (40-150) U/L Troponin I < 0.01 L (0.01-0.04) ng/mL C-Reactive Protein < 0.5 L (0.5-1.0) mg/dL NT-Pro-B Natriuret Pep 200 pg/mL Total Protein 6.1 (6.0-8.3) g/dL Albumin 3.8 (3.3-5.0) g/dL Lipase 63 (23-300) U/L Urine Color Yellow (Yellow) Urine Appearance Clear (Clear) Urine pH 5.5 (5.0-8.5) Ur Specific [place] 1.010 (1.000-1.030) Urine Protein Negative (Negative) Urine Glucose (UA) Negative (Negative) Urine Ketones Negative (Negative) Urine Blood Trace-intact A (Negative) Urine Nitrite Negative (Negative) Urine Bilirubin Negative (Negative) Urine Urobilinogen 0.2 (0.2-1.0) Ur Leukocyte Esterase Negative (Negative) Urine RBC 0-2 (0-2) Urine WBC 2-5 (0-5) Ur Squamous Epith Cells None (None-Few) Other Sediment Few A (None) Urine Bacteria None (None) Coarse Granular Casts Few A (None) Imaging Data CT scan - head: Attestation: I have reviewed the pertinent imaging results. Radiologist's impression: Patient: [facility] Facility:?[facility] Patient ID:?[id number] Site Patient ID:?[id number]. Site :?[id number] Study:?CT-Head W/O-09/20/2023 2:56:34 PM Ordering Physician:Benjamin Lee Final Report: INDICATION: Dizzy. TECHNIQUE: Noncontrast CT images of the brain. COMPARISON: MRI brain 09/14/2023. FINDINGS: Mild diffuse cerebral volume loss. No mass effect or midline shift. The lux-white differentiation is maintained. No acute intracranial hemorrhage or pathologic extra-axial fluid collection. Intracranial atherosclerotic calcifications. Suggested mild to moderate chronic microvascular ischemic changes. The globes are symmetric. The calvarium is intact. Mild paranasal sinus mucosal thickening. Moderate opacification of the right mastoid air cells. IMPRESSION: 1. No acute intracranial hemorrhage or mass effect. 2. Moderate opacification of the right mastoid air cells. Please note that all CT scans at this facility use dose modulation, iterative reconstruction, and/or weight-based dosing when appropriate to reduce radiation dose to as low as reasonably achievable. Dictated by Dick Tubbs MD @ 09/20/2023 3:01:30 PM (Electronic Signature) CT scan - abdomen: Attestation: I have reviewed the pertinent imaging results. Radiologist's impression: Patient: [facility] Facility:?[facility] Patient ID:?[id number] Site Patient ID:?[id number]. Site :?1955 Study:?CT-Abdomen/Pelvis W/ 77CC ISOVUE 370-09/20/2023 2:58:36 PM Ordering Physician:Benjamin Lee Final Report: Indication: NAUSEA, VOMITING, ABD PAIN, CRAMPING EPISODE, KNOWN STAGE 4 LUNG CANCER. Technique: CT of the abdomen and pelvis was performed following the administration of 77 mL Isovue 370. Comparison: None available. Findings: Visualized lung bases: Calcified granulomas in right hilar lymph nodes. Minimal dependent atelectasis bilaterally. Liver: Geographic hypodensity along the falciform ligament, likely focal fatty infiltration. Too small to characterize hypodensity in the left hepatic lobe. Mild hepatic steatosis. Normal gallbladder. No biliary ductal dilation. Pancreas: Unremarkable. Spleen: Unremarkable. Adrenals: Unremarkable. Kidneys: Mildly asymmetric renal enhancement, somewhat delayed on the left. No hydronephrosis. Mild bilateral perinephric stranding. Too small to characterize hypodensities in the kidneys bilaterally. Aorta/IVC: Calcified and noncalcified atherosclerotic plaques with infrarenal abdominal aortic aneurysm measuring 3.8 cm, previously reported to be 3.6 cm on PET-CT from September 2022. Lymph nodes: No lymphadenopathy. Bowel: Nonobstructed bowel. Appendix is not definitively visualized. Mild generalized colonic wall thickening without associated inflammatory stranding. No intraperitoneal free air or fluid. Pelvis: Decompressed bladder with circumferential wall thickening. Prominent median lobe of the prostate. Bones/body wall: Multilevel degenerative disc disease. Impression: 1. Bladder wall thickening, which may be due to underdistention. Mild bilateral perinephric stranding with asymmetric renal enhancement. No hydronephrosis. Recommend correlation with urinalysis and presence of CVA tenderness to evaluate for infection. 2. Mild generalized colonic wall thickening, possibly secondary to mild colitis. 3. Mild hepatic steatosis. 4. Infrarenal abdominal aortic aneurysm measuring 3.8 cm, previously 3.6 cm on PET-CT report from September 2022. Please note that all CT scans at this facility use dose modulation, iterative reconstruction, and/or weight-based dosing when appropriate to reduce radiation dose to as low as reasonably achievable. Dictated by Mellisa aBrillas MD @ 09/20/2023 4:14:36 PM (Electronic Signature) ECG Data Attestation: I personally reviewed and interpreted this ECG as follows: (Normal sinus rhythm, 62 beats per minute. No evidence of any active ischemia or acute infarct. Does appear that he has right bundle branch block.) Prior ECG tracings: not available for review Critical Care Time Critical Care Time Critical Care Time: No Discharge Plan Discharge Clinical Impression: Abdominal pain Qualifiers: Abdominal location: generalized Qualified Code(s): R10.84 - Generalized abdominal pain Patient Disposition: Home, Self-Care Condition: Stable Instructions: Colitis (ED) Additional Instructions: If you have ongoing diarrhea that is problematic, have blood in the diarrhea, have significant abdominal pain or fever associated with diarrhea, do need re-evaluation. Continue to drink adequate fluids as you have been doing. Can touch base with your vascular doctor at [place], let them know that the CT from today did show the infrarenal aneurysm to be at 3.8 cm. Activity Level: Activity as Tolerated Discharge Diet: Regular Prescriptions: No Action folic acid 1 mg tablet 1 mg PO QDAY Qty: 90 1RF levothyroxine 112 mcg tablet 112 mcg PO DAILY Qty: 30 3RF gabapentin 100 mg capsule 100 mg PO HS Qty: 90 3RF magnesium oxide 400 mg (241.3 mg magnesium) tablet 400 mg PO BID Qty: 100 0RF budesonide-formoterol [Symbicort] 80-4.5 mcg/actuation HFA aerosol inhaler 2 puff inhalation BID Qty: 10.2 1RF aspirin [Adult Low Dose Aspirin] 81 mg tablet,delayed release (DR/EC) 81 mg PO QDAY famotidine [Pepcid] 20 mg tablet 20 mg PO BID Qty: 60 0RF ondansetron HCl 4 mg tablet 4 mg PO Q8H Qty: 60 0RF prochlorperazine maleate [Compazine] 5 mg tablet 5 mg PO TID PRN (Reason: nausea and vomiting) Qty: 90 0RF prednisone 10 mg tablet 10 mg PO QDAY Qty: 30 0RF tramadol 50 mg tablet 50 mg PO Q6H PRN (Reason: pain) Qty: 60 0RF lisinopril 10 mg tablet 10 mg PO DAILY Patient Comments: TAKE 1 TABLET BY MOUTH EVERY DAY calcium carbonate-vitamin D3 [Calcium 500 With D] 500 mg-10 mcg (400 unit) tablet 1 tab PO BID Qty: 90 3RF vitamin B complex Tablet 1 tab PO QDAY Qty: 60 3RF cyclobenzaprine 10 mg tablet 10 mg PO TID PRN (Reason: muscle spasm) Qty: 180 3RF Follow Up/Referrals: Martina Cid, KACIE, HEARING CONSULTANT [Primary Care Provider] - Stand Alone Forms: MyHealth Info Instructions
[2023-09-20 13:53] VITALS: O2SAT 96
--- NOTE | 2023-09-20 13:53 | CRLHL7_ITS ---
For Patients: As a result of the Century Cures Act, medical imaging exams and procedure reports are released immediately into your electronic medical record. You may view this report before your referring provider. If you have questions, please contact your health care provider. Indication: NAUSEA, VOMITING, ABD PAIN, CRAMPING EPISODE, KNOWN STAGE 4 LUNG CANCER. Technique: CT of the abdomen and pelvis was performed following the administration of 77 mL Isovue 370. Comparison: None available. Findings: Visualized lung bases: Calcified granulomas in right hilar lymph nodes. Minimal dependent atelectasis bilaterally. Liver: Geographic hypodensity along the falciform ligament, likely focal fatty infiltration. Too small to characterize hypodensity in the left hepatic lobe. Mild hepatic steatosis. Normal gallbladder. No biliary ductal dilation. Pancreas: Unremarkable. Spleen: Unremarkable. Adrenals: Unremarkable. Kidneys: Mildly asymmetric renal enhancement, somewhat delayed on the left. No hydronephrosis. Mild bilateral perinephric stranding. Too small to characterize hypodensities in the kidneys bilaterally. Aorta/IVC: Calcified and noncalcified atherosclerotic plaques with infrarenal abdominal aortic aneurysm measuring 3.8 cm, previously reported to be 3.6 cm on PET-CT from September 2022. Lymph nodes: No lymphadenopathy. Bowel: Nonobstructed bowel. Appendix is not definitively visualized. Mild generalized colonic wall thickening without associated inflammatory stranding. No intraperitoneal free air or fluid. Pelvis: Decompressed bladder with circumferential wall thickening. Prominent median lobe of the prostate. Bones/body wall: Multilevel degenerative disc disease. Impression: 1. Bladder wall thickening, which may be due to underdistention. Mild bilateral perinephric stranding with asymmetric renal enhancement. No hydronephrosis. Recommend correlation with urinalysis and presence of CVA tenderness to evaluate for infection. 2. Mild generalized colonic wall thickening, possibly secondary to mild colitis. 3. Mild hepatic steatosis. 4. Infrarenal abdominal aortic aneurysm measuring 3.8 cm, previously 3.6 cm on PET-CT report from September 2022. Please note that all CT scans at this facility use dose modulation, iterative reconstruction, and/or weight-based dosing when appropriate to reduce radiation dose to as low as reasonably achievable. Dictated by Mellisa Barillas MD @ 09/20/2023 4:14:36 PM (Electronically Signed)
--- NOTE | 2023-09-20 14:00 | CRLHL7_ITS ---
For Patients: As a result of the Century Cures Act, medical imaging exams and procedure reports are released immediately into your electronic medical record. You may view this report before your referring provider. If you have questions, please contact your health care provider. INDICATION: Dizzy. TECHNIQUE: Noncontrast CT images of the brain. COMPARISON: MRI brain 09/14/2023. FINDINGS: Mild diffuse cerebral volume loss. No mass effect or midline shift. The lux-white differentiation is maintained. No acute intracranial hemorrhage or pathologic extra-axial fluid collection. Intracranial atherosclerotic calcifications. Suggested mild to moderate chronic microvascular ischemic changes. The globes are symmetric. The calvarium is intact. Mild paranasal sinus mucosal thickening. Moderate opacification of the right mastoid air cells. IMPRESSION: 1. No acute intracranial hemorrhage or mass effect. 2. Moderate opacification of the right mastoid air cells. Please note that all CT scans at this facility use dose modulation, iterative reconstruction, and/or weight-based dosing when appropriate to reduce radiation dose to as low as reasonably achievable. Dictated by Dick Tubbs MD @ 09/20/2023 3:01:30 PM (Electronically Signed)
[2023-09-20 14:18] LABS: Lactate* 1.3 mmol/L (0.5-1.9)
[2023-09-20 14:19] LABS: Basophils Absolute Auto 0.06 K/uL (0.00-0.30); Basophils Percent Auto 0.6 % (0.0-3.0); Eosinophils Percent Auto 2.2 % (0.0-7.0); Hematocrit 27.6 % (37.0-53.0); Hemoglobin* 9.1 gm/dL (13.5-17.5); Immature Granulocytes Abs Auto 0.05 K/uL (0.00-0.30); Immature Granulocytes Pct Auto 0.5 %; Lymphocytes Percent Auto 7.1 % (20-44); Mean Corpuscular HGB Conc 33 gm/dL (32-36); Mean Corpuscular Hemoglobin 34 pg (26-34); Mean Corpuscular Volume 103 fL (80-100); Monocytes Percent Auto 0.4 % (0.0-11.0); Neutrophils Percent Auto 89.2 % (42.0-72.0); Platelet Count* 203 K/uL (140-440); RDW Coefficient of Variation % 18.2 % (11.5-15.5); Red Blood Count 2.67 m/uL (4.30-5.90); White Blood Count* 9.25 K/uL (4.50-11.00)
[2023-09-20] MEDS: 0.9 % SODIUM CHLORIDE 1000 ml 1,000 ML IV (14:20)
[2023-09-20 14:21] LABS: Slide Review Reflex Yes
[2023-09-20 14:41] LABS: Albumin* 3.8 g/dL (3.3-5.0); Chloride* 104 mmol/L (96-114); Sodium* 132 mmol/L (135-149)
[2023-09-20 14:42] LABS: Potassium* 4.4 mmol/L (3.6-5.1)
[2023-09-20 14:43] LABS: Creatinine* 1.5 mg/dL (0.5-1.5); Est. Creatinine Clearance* 46.52; Estimated Glomerular Filt Rate 50 ml/min; Lipase* 63 U/L (23-300); Magnesium* 2.8 mg/dL (1.5-2.6)
[2023-09-20 14:44] LABS: Alanine Aminotransferase* 26 U/L (4-50); Alkaline Phosphatase* 109 U/L (40-150); Anion Gap 8 mEq/L (7-15); Aspartate Amino Transferase* 33 U/L (12-35); Bilirubin Total* 0.5 mg/dL (0.1-1.5); Blood Urea Nitrogen* 35 mg/dL (7-30); Carbon Dioxide* 20 mmol/L (20-32); Total Protein* 6.1 g/dL (6.0-8.3)
[2023-09-20 14:45] LABS: Calcium* 9.5 mg/dL (8.4-10.6); Glucose* 164 mg/dL (60-115)
[2023-09-20 15:02] LABS: C Reactive Protein* < 0.5 mg/dL (0.5-1.0); NT Pro B Type NatriureticPept* 200 pg/mL; Troponin I* < 0.01 ng/mL (0.01-0.04)
[2023-09-20 16:42] LABS: Appearance Urine Clear (Clear); Bilirubin Urine Negative (Negative); Blood Urine Trace-intact (Negative); Color Urine Yellow (Yellow); Glucose Urine Negative (Negative); Ketones Urine Negative (Negative); Leukocyte Esterase Urine Negative (Negative); Nitrite Urine Negative (Negative); Protein Urine Negative (Negative); Urobilinogen Urine 0.2 (0.2-1.0); pH Urine 5.5 (5.0-8.5)
[2023-09-20 17:07] LABS: RBC Urine 0-2 (0-2)
[2023-09-20 17:08] LABS: Other Sediment Urine Few
[2023-09-20 17:09] LABS: Coarse Granular Casts Urine Few
[2023-09-20 21:57] LABS: Slide Review Acceptable Review (Acceptable)
== END 2023-09-20 17:36 | disposition home or self-care (01) ==
PROVIDERS: Emergency Provider Family Medicine; PCP Nurse Practitioner Family
DX: R10.84 Generalized abdominal pain (principal); R06.09 Other forms of dyspnea
CPT/HCPCS: 36415; 70450; 74177; 80053; 81001; 83605; 83690; 83735; 83880; 84484; 85025; 86140; 93005; 94761; 99284; 99285; J7030; Q9967

== ENCOUNTER 2023-10-16 08:28 | Outpatient (CLI) | payer OTHER, SELFPAY ==
--- NOTE | 2023-10-16 09:00 | CRLHL7_ITS ---
For Patients: As a result of the Century Cures Act, medical imaging exams and procedure reports are released immediately into your electronic medical record. You may view this report before your referring provider. If you have questions, please contact your health care provider. INDICATION: Right jugular vein thrombosis. COMPARISON: None. TECHNIQUE: CT soft tissue neck with IV contrast. ICD 370, 76 IAC`s. FINDINGS: There is complete thrombosis of the right internal jugular vein from the jugular bulb confluence at the skullbase (series 3, image 18 through the thorax. The right Port-A-Cath catheter extends into the patent SVC. Left internal jugular vein is widely patent throughout its course. Normal bilateral parotid glands. Normal submandibular glands. Atrophic thyroid gland. No enlarged lymph nodes. Nasopharynx and oropharynx are clear. No inflammation within the paravertebral fat pads or retropharyngeal space. Normal thickness of the epiglottis. Normal glottis with symmetric vocal cords. Large bullae the lung apices bilaterally. Fluid within the largest bulla of the left lung apex (series 3, image 87). Nasopharynx and oropharynx are clear. No inflammation within the paravertebral fat pads or retropharyngeal space. Normal thickness of the but glottis. Normal glottis with symmetric vocal cords. Cervical spondylosis. No prevertebral soft tissue swelling. Visualized paranasal sinuses are clear. Large right mastoid effusion. IMPRESSION: 1. 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 2. Right Port-A-Cath. Catheter tip extends into a patent SVC. 3. Left internal jugular vein is widely patent 4. No adenopathy 5. Large bullae within the lung apices bilaterally 6. Right mastoid effusion Please note that all CT scans at this facility use dose modulation, iterative reconstruction, and/or weight-based dosing when appropriate to reduce radiation dose to as low as reasonably achievable. Dictated by Lonny Hickey MD @ 10/18/2023 2:46:14 PM (Electronically Signed)
== END 2023-10-16 08:29 | disposition home or self-care (01) ==
LOC: CT 08:28
PROVIDERS: PCP Nurse Practitioner Family; Visit Provider Family Medicine
DX: I82.890 Acute embolism and thrombosis of other specified veins (principal); J43.9 Emphysema, unspecified
CPT/HCPCS: 70491; Q9967

== ENCOUNTER 2023-10-29 13:52 | Inpatient (IN) | payer OTHER, SELFPAY ==
[2023-10-29] VITALS (31 sets, daily range): BP systolic 96–132; BP diastolic 53–88; PULSE 74–111; RESP 16–20; TEMP 36–36.9; O2SAT 89–100; BMI 20.2; BMI 20.3
--- NOTE | 2023-10-29 14:01 | ED.GENADULT ---
HPI - General Adult General Date Seen: 10/29/23 Chief complaint: Unspecified Complaint, Adult Stated complaint: Sent from [facility], low Hg, CT etc Time Seen by Provider: 10/29/23 14:01 History of Present Illness HPI narrative: 68-year-old male with a history of metastatic lung cancer (on chemo), peripheral artery disease with recent bilateral lower extremity stenting done at [facility] last month, recent diagnosis of right internal jugular blood clot (now on therapeutic Xarelto since 10/19) , chronic anemia with recent baseline hemoglobin around 8.5, apparently received blood transfusions while in the hospital at [facility] last month, but has never had other blood transfusions. He is sent to the ER this afternoon from the outpatient infusion center. He notes that since he was started on Xarelto last week he has had would declining function. He has been feeling a bit weaker and more short of breath with exertion. He has had several episodes where his legs get shaky and weak and gave out on him. These are not episodes where he trips. He does not get lightheaded or faint or lose consciousness, his legs give out any falls. He has hit his head during some of the falls and does have some bruising on his right eye. He went to the infusion center today to get checked out because of the weakness and falls. Once there they did labs that showed WBC 2.3 (previously 10.9), hemoglobin 6.8 (was 8.5 on 10/18), platelet 115 (previously 337 on 10/18) He was referred to the ER because his provider felt like he needed a head CT with a recent falls. Also would need blood transfusions for his anemia. Patient also endorses that he has had recent very dark stools, almost black coffee-ground color. No visible blood. No stomach pain. No nausea or vomiting. Appetite has been somewhat decreased but that is typical for him after his chemo. Most recent chemo infusion was 9 days ago on 10/19. Related Data Home Medications ?Medication ?Instructions ?Recorded ?Confirmed lisinopril 10 mg tablet 10 mg PO DAILY 09/18/21 10/29/23 aspirin 81 mg tablet,delayed 81 mg PO DAILY 08/26/23 10/29/23 release (Adult Low Dose Aspirin) rosuvastatin 20 mg tablet 20 mg PO DAILY 09/22/23 10/29/23 albuterol sulfate 90 mcg/actuation 2 inh inhalation Q4H PRN 10/29/23 10/29/23 aerosol inhaler (Ventolin HFA) folic acid 1 mg tablet 1 mg PO DAILY 10/29/23 10/29/23 ondansetron HCl 4 mg tablet 4 mg PO Q8H PRN nausea and vomiting 10/29/23 10/29/23 prednisone 10 mg tablet 10 mg PO DAILY PRN 10/29/23 10/29/23 rivaroxaban 20 mg tablet (Xarelto) 20 mg PO QPM 10/29/23 10/29/23 tramadol 50 mg tablet 50 mg PO HS pain 10/29/23 10/29/23 vitamin B complex 1 tab PO DAILY 10/29/23 10/29/23 Previous Rx's ?Medication ?Instructions ?Recorded calcium carbonate 500 mg-vitamin 1 tab PO BID #90 tabs 05/18/23 D3 10 mcg (400 unit) tablet (Calcium 500 With D) prochlorperazine maleate 5 mg 5 mg PO TID PRN nausea and 08/26/23 tablet (Compazine) vomiting #90 tabs cyclobenzaprine 10 mg tablet 10 mg PO TID PRN muscle spasm #180 09/16/23 tabs Symbicort 80 mcg-4.5 mcg/actuation 2 puff inhalation BID #30.6 grams 09/22/23 HFA aerosol inhaler (budesonide-formoterol) famotidine 20 mg tablet (Pepcid) 20 mg PO BID #180 tabs 09/22/23 gabapentin 100 mg capsule 100 mg PO HS #90 caps 09/29/23 levothyroxine 112 mcg tablet 112 mcg PO DAILY #90 tabs 10/05/23 magnesium oxide 400 mg (241.3 mg 400 mg PO BID #100 tabs 10/20/23 magnesium) tablet Allergies Allergy/AdvReac Type Severity Reaction Status Date / Time carboplatin Allergy Severe Anaphylaxis Verified 10/29/23 12:54 [facility] Medical History (Updated 10/20/23 @ 09:03 by Charity Dudley MD) Infusion reaction ?T80.90XA - Unspecified complication following infusion and therapeutic injection, initial encounter (ICD-10) 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 - Hypothyroidism due to medicaments and other exogenous substances (ICD-10) Dyspnea ?R06.00 - Dyspnea, unspecified (ICD-10) Bilateral leg cramps ?R25.2 - Cramp and spasm (ICD-10) Hyperkalemia ?E87.5 - Hyperkalemia (ICD-10) Cervical spinal stenosis ?M48.02 - Spinal stenosis, cervical region (ICD-10) Central venous catheter in place ?Z78.9 - Other specified health status (ICD-10) Cancer associated pain ?G89.3 - Neoplasm related pain (acute) (chronic) (ICD-10) Emphysema/COPD ?J43.9 - Emphysema, unspecified (ICD-10) Dermatitis ?L30.9 - Dermatitis, unspecified (ICD-10) Colon polyp ?K63.5 - Polyp of colon (ICD-10) Tobacco use disorder ?F17.200 - Nicotine dependence, unspecified, uncomplicated (ICD-10) Surgical History S/P hernia repair ?Z98.890 - Other specified postprocedural states (ICD-10) ?Z87.19 - Personal history of other diseases of the digestive system (ICD-10) History of appendectomy ?Z90.49 - Acquired absence of other specified parts of digestive tract (ICD-10) H/O colonoscopy ?Z98.890 - Other specified postprocedural states (ICD-10) Social History Narrative: . 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 Smoker 1.5 packs per day for 45 years. Drinks 2-3 beers per day. What is your current living situation?: I presently have a place to live Smoking Status: Light tobacco smoker How often do you have a drink containing alcohol: 2-4 times a month How often do you have six or more drinks on one occasion: Never AUDIT-C Alcohol total score: 2 Non-prescribed substance use: denies use Caffeine: Yes service: No Exam Const: Vital Signs, click to edit/add: Vital Signs - 24 hr 10/29/23 14:00 10/29/23 16:12 10/29/23 16:15 Temperature 97.3 F L Pulse Rate 82 85 Pulse Rate [Right Pulse Oximeter] 111 H Respiratory Rate 18 Blood Pressure Blood Pressure [Ri ght Upper Arm] 131/86 Pulse Oximetry 99 98 89 Oxygen Delivery Me thod Room Air 10/29/23 16:30 10/29/23 16:32 10/29/23 16:45 Temperature Pulse Rate 88 86 84 Pulse Rate [Right Pulse Oximeter] Respiratory Rate Blood Pressure 96/67 Blood Pressure [Ri ght Upper Arm] Pulse Oximetry 96 96 96 Oxygen Delivery Me thod 10/29/23 17:00 10/29/23 17:03 10/29/23 17:04 Temperature Pulse Rate 83 80 82 Pulse Rate [Right Pulse Oximeter] Respiratory Rate Blood Pressure 116/60 Blood Pressure [Ri ght Upper Arm] Pulse Oximetry 97 94 93 Oxygen Delivery Me thod 10/29/23 17:37 10/29/23 17:44 10/29/23 17:45 Temperature 96.8 F L Pulse Rate 74 78 75 Pulse Rate [Right Pulse Oximeter] Respiratory Rate 16 Blood Pressure 130/69 Blood Pressure [Ri ght Upper Arm] Pulse Oximetry 99 98 100 Oxygen Delivery Me thod 10/29/23 17:47 10/29/23 17:58 10/29/23 18:00 Temperature 97.2 F L Pulse Rate 77 81 80 Pulse Rate [Right Pulse Oximeter] Respiratory Rate 16 Blood Pressure 123/65 119/81 Blood Pressure [Ri ght Upper Arm] Pulse Oximetry 98 98 98 Oxygen Delivery Me thod 10/29/23 18:01 10/29/23 18:15 10/29/23 18:17 Temperature Pulse Rate 82 77 78 Pulse Rate [Right Pulse Oximeter] Respiratory Rate Blood Pressure 119/81 120/58 L Blood Pressure [Ri ght Upper Arm] Pulse Oximetry 100 98 100 Oxygen Delivery Me thod Course Vital Signs Vital signs: Initial Vital Signs Temperature 97.3 F L 10/29/23 14:00 Temperature Source Temporal Artery Scan 10/29/23 14:00 Pulse Rate 111 H 10/29/23 14:00 Respiratory Rate 18 10/29/23 14:00 Blood Pressure 131/86 10/29/23 14:00 Blood Pressure Mean 101 10/29/23 14:00 Blood Pressure Position Sitting 10/29/23 14:00 Pulse Oximetry 99 10/29/23 14:00 Oxygen Delivery Method Room Air 10/29/23 14:00 Vital Signs Temperature 97.3 F L 10/29/23 14:00 Pulse Rate 111 H 10/29/23 14:00 Respiratory Rate 18 10/29/23 14:00 Blood Pressure 131/86 10/29/23 14:00 Pulse Oximetry 99 10/29/23 14:00 Oxygen Delivery Method Room Air 10/29/23 14:00 Temperature 97.2 F L 10/29/23 17:58 Pulse Rate 78 10/29/23 18:17 Respiratory Rate 16 10/29/23 17:58 Blood Pressure 120/58 L 10/29/23 18:17 Pulse Oximetry 100 10/29/23 18:17 Oxygen Delivery Method Room Air 10/29/23 14:00 Medical Decision Making MDM Narrative Medical decision making narrative: Very pleasant gentleman with a history of metastatic lung cancer, on chemotherapy and immunotherapy, with a recent diagnosis of right IJ thrombosis and recently started on Xarelto. Last round of treatment for his cancer was 9 days ago on the . He has been feeling unwell lately with dizziness, weakness, episodes of his legs giving out, shortness of breath, and went to the outpatient infusion center to be checked today. He was found to be anemic (acute on chronic) with a hemoglobin of 6. 8, with a baseline hemoglobin of 8.5 couple of weeks ago. With his recent falls he does have signs of a head injury with bruising around his right eye. Concern is for possible intracranial hemorrhage since he is on Xarelto. Head CT is obtained and is negative for intracranial bleed. No evidence for any facial bone fracture on clinical exam. No neck pain to suggest C-spine fracture. He is neurologically intact He is confirmed to be anemic with lab recheck here in the ER today. Cause of anemia unclear. He does endorse several days of very dark and black colored stools. On my exam he does have a small amount of black stool for on the skin of the external rectum. I did collect a little bit of that stool for sample and sent for Hemoccult which is negative. I did not want to do a complete internal digital rectal exam because he is also neutropenic and did not want to traumatize his rectal mucosa. Hemoccult is negative, however I wonder if we had an adequate sample. Could be a false negative. He is also 9 days out from a most recent treatment. He has pancytopenia with leukopenia, neutropenia, thrombocytopenia, as well as worsening anemia. His anemia could be due to bone marrow suppression. Fortunately he is hemodynamically stable. No signs of shock. With symptomatic anemia less than 7 does require transfusion. Will order 2 units based on how low his hemoglobin is. Written verbal consent for transfusion after discussion of risks and benefits is obtained. I recommend that we hospitalize the patient overnight for hemoglobin monitoring given the potential risk for GI bleeding, especially since he is now anticoagulated on Xarelto he could have risk for exsanguinating hemorrhage of discharge. It is also possible that his anemia is due to the chemo and may not further deteriorate. Patient is agreeable to admission. Discussed with our hospitalist, Dr. Aguirre. Lab Data Labs: Lab Results 10/29/23 10/29/23 Range/Units 14:40 15:45 WBC 1.91 L* (4.50-11.00) K/uL RBC 1.85 L (4.30-5.90) m/uL Hgb 6.3 L* (13.5-17.5) gm/dL Hct 19.5 L (37.0-53.0) % MCV 105 H (80-100) fL MCH 34 (26-34) pg MCHC 32 (32-36) gm/dL RDW Coeff of Jolie 16.1 H (11.5-15.5) % Plt Count 118 L (140-440) K/uL Neut % (Auto) 23.0 L (42.0-72.0) % Lymph % (Auto) 51.8 H (20-44) % [place] % (Auto) 15.2 H (0.0-11.0) % Eos % (Auto) 5.8 (0.0-7.0) % Baso % (Auto) 1.6 (0.0-3.0) % Neut # (Auto) 0.40 L (1.7-7.0) K/uL Lymph # (Auto) 1.00 (0.90-2.90) K/uL [place] # (Auto) 0.30 (0.00-0.90) K/UL Eos # (Auto) 0.10 (0.00-0.50) K/uL Baso # (Auto) 0.00 (0.00-0.30) K/uL Abs Immat Gran (auto) 0.00 (0.00-0.30) K/uL Imm/Tot Granulo (auto) 2.6 % Sodium 133 L (135-149) mmol/L Potassium 4.7 (3.6-5.1) mmol/L Chloride 105 (96-114) mmol/L Carbon Dioxide 22 (20-32) mmol/L Anion Gap 6 L (7-15) mEq/L BUN 41 H (7-30) mg/dL Creatinine 1.4 (0.5-1.5) mg/dL Estimated Creat Clear 48.32 Estimated GFR 54 ml/min Glucose 92 (60-115) mg/dL Lactate 1.3 (0.5-1.9) mmol/L Calcium 9.5 (8.4-10.6) mg/dL NT-Pro-B Natriuret Pep 197 pg/mL Stool Occult Blood Negative (Negative) Blood Type B Negative Antibody Screen NEGATIVE Crossmatch (AHG) See Detail Imaging Data CT scan - head: Attestation: I have reviewed the pertinent imaging results. Radiologist's impression: IMPRESSION: 1. No skull fracture or acute intracranial hemorrhage identified. 2. 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 Tiny lipoma in the suprasellar cistern at the tuber cinereum. 4. Nonspecific right mastoid/middle ear effusions, increased relative to 09/20/2023. ECG Data Attestation: I personally reviewed and interpreted this ECG as follows: Interpretation: Normal sinus rhythm Rate: 79 NH: 166 QRS axis: Normal. No pathologic Q-waves ST segment/T wave: No ST segment elevation or depression QTc: 447
--- NOTE | 2023-10-29 14:26 | CRLHL7_ITS ---
For Patients: As a result of the Century Cures Act, medical imaging exams and procedure reports are released immediately into your electronic medical record. You may view this report before your referring provider. If you have questions, please contact your health care provider. INDICATION: Dyspnea. Falls. TECHNIQUE: Chest 2 views. COMPARISON: CT neck 10/16/2023. FINDINGS: Right IJ Port-A-Cath terminates in the distal SVC. Emphysema with biapical bullous changes and air-fluid level at the left lung apex, as before. Lungs are otherwise clear. Cardiac and mediastinal contours are within normal limits. Upper abdomen and osseous structures as imaged show no acute abnormality. IMPRESSION: No evidence of acute cardiopulmonary disease. Dictated by Avni Muse MD @ 10/29/2023 3:30:34 PM (Electronically Signed)
--- NOTE | 2023-10-29 14:26 | CRLHL7_ITS ---
For Patients: As a result of the 21st Century Cures Act, medical imaging exams and procedure reports are released immediately into your electronic medical record. You may view this report before your referring provider. If you have questions, please contact your health care provider. INDICATION: Fall, on Xarelto, right eye hematoma TECHNIQUE: Noncontrast axial CT of the head. Coronal and sagittal reformats. Bone and soft tissue algorithms. COMPARISON: CT head report 09/20/2023 FINDINGS: The ventricles and cortical sulci appear stable in configuration. No midline shift or mass effect. No acute intracranial hemorrhage or extra-axial fluid collection. Spann-white matter differentiation is grossly maintained. Scattered FLAIR hyperintense foci throughout the supratentorial white matter typical of chronic microangiopathy. Tiny chronic left parietal cortical infarct, stable. Tiny presumed lipoma in the suprasellar cistern in the region of the tuber cinereum. Calcific intracranial atherosclerotic plaquing. Midline structures are unremarkable. The calvarium appears grossly intact. No sinonasal air-fluid level. Increased right mastoid/middle ear effusions. Unremarkable orbits. IMPRESSION: 1. No skull fracture or acute intracranial hemorrhage identified. 2. 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 Tiny lipoma in the suprasellar cistern at the tuber cinereum. 4. Nonspecific right mastoid/middle ear effusions, increased relative to 09/20/2023. Please note that all CT scans at this facility use dose modulation, iterative reconstruction, and/or weight-based dosing when appropriate to reduce radiation dose to as low as reasonably achievable. Dictated by Claudia Samuels MD @ 10/29/2023 3:24:59 PM (Electronically Signed)
[2023-10-29 14:47] LABS: Lactate* 1.3 mmol/L (0.5-1.9)
[2023-10-29 14:57] LABS: Basophils Percent Auto 1.6 % (0.0-3.0); Eosinophils Percent Auto 5.8 % (0.0-7.0); Hematocrit 19.5 % (37.0-53.0); Immature Granulocytes Pct Auto 2.6 %; Lymphocytes Percent Auto 51.8 % (20-44); Mean Corpuscular HGB Conc 32 gm/dL (32-36); Mean Corpuscular Hemoglobin 34 pg (26-34); Mean Corpuscular Volume 105 fL (80-100); Monocytes Percent Auto 15.2 % (0.0-11.0); Platelet Count* 118 K/uL (140-440); RDW Coefficient of Variation % 16.1 % (11.5-15.5); Red Blood Count 1.85 m/uL (4.30-5.90)
[2023-10-29 15:02] LABS: Chloride* 105 mmol/L (96-114); Potassium* 4.7 mmol/L (3.6-5.1); Sodium* 133 mmol/L (135-149)
[2023-10-29 15:04] LABS: Creatinine* 1.4 mg/dL (0.5-1.5); Est. Creatinine Clearance* 48.32; Estimated Glomerular Filt Rate 54 ml/min
[2023-10-29 15:05] LABS: Anion Gap 6 mEq/L (7-15); Blood Urea Nitrogen* 41 mg/dL (7-30); Calcium* 9.5 mg/dL (8.4-10.6); Carbon Dioxide* 22 mmol/L (20-32); Glucose* 92 mg/dL (60-115)
[2023-10-29 15:14] LABS: Hemoglobin* 6.3 gm/dL (13.5-17.5); White Blood Count* 1.91 K/uL (4.50-11.00)
[2023-10-29 15:15] LABS: NT Pro B Type NatriureticPept* 197 pg/mL
[2023-10-29 16:22] LABS: Fecal Occult Blood* Negative (Negative)
[2023-10-29 17:08] LABS: Slide Review Reflex No
--- NOTE | 2023-10-29 18:45 | P.IMHP_ITS ---
Hospitalist- H&P: HPI History of Present Illness Date Seen: 10/29/23 Chief complaint: Sent from [facility], low Hg, CT etc Narrative: Osbaldo Palacios is a 68 year old male who presented to the ER today with falls, significant DAHL, weakness, lower Hgb than baseline. History of metastatic lung cancer, currently being treated with Durvalumab and Alimta. 09/30 had R iliac and SFA stent with Dr. Regan at [facility], on lifelong ASA. Two weeks ago, diagnosed with a R IJ thrombosis, on Xarelto. Seen in Oncology clinic today, Hgb down to 6.8 (baseline 8-9). Also endorsed having multiple falls over the past 2 weeks (mechanical presumably 2/2 weakness), and Oncology sent him to ED for workup. ER Course and findings: - no acute abnormalities on head CT - Pancytopenic with Hgb of 6.3 (10 days ago was 8.5) - negative guaiac (although ED provider noted that stool was very dark on exam, wondered about a false negative) Histories updated below. PCP is Dr. Gunter at [facility], sees Dr. Dudley at [facility] for Oncology. Review of Systems Narrative: - has fallen 5 times since 10/19 (all seem to be mechanical falls 2/2 weakness, no syncope), no LOC during any of his falls - severe DAHL; feels short of breath when walking down the hallway, no associated CP - decreased appetite, but no constipation, diarrhea, or nausea PFSH [facility] Medical History (Updated 10/29/23 @ 21:34 by Renetta Aguirre MD) Anemia associated with chemotherapy ?D64.81 - Anemia due to antineoplastic chemotherapy (ICD-10) ?T45.1X5A - Adverse effect of antineoplastic and immunosuppressive drugs, initial encounter (ICD-10) Chemotherapy induced neutropenia ?D70.1 - Agranulocytosis secondary to cancer chemotherapy (ICD-10) ?T45.1X5A - Adverse effect of antineoplastic and immunosuppressive drugs, initial encounter (ICD-10) Insomnia ?G47.00 - Insomnia, unspecified (ICD-10) PVD (peripheral vascular disease) ?I73.9 - Peripheral vascular disease, unspecified (ICD-10) Infusion reaction ?T80.90XA - Unspecified complication following infusion and therapeutic injection, initial encounter (ICD-10) 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 - Hypothyroidism due to medicaments and other exogenous substances (ICD-10) Dyspnea ?R06.00 - Dyspnea, unspecified (ICD-10) Bilateral leg cramps ?R25.2 - Cramp and spasm (ICD-10) Hyperkalemia ?E87.5 - Hyperkalemia (ICD-10) Cervical spinal stenosis ?M48.02 - Spinal stenosis, cervical region (ICD-10) Central venous catheter in place ?Z78.9 - Other specified health status (ICD-10) Cancer associated pain ?G89.3 - Neoplasm related pain (acute) (chronic) (ICD-10) Emphysema/COPD ?J43.9 - Emphysema, unspecified (ICD-10) Dermatitis ?L30.9 - Dermatitis, unspecified (ICD-10) Colon polyp ?K63.5 - Polyp of colon (ICD-10) Tobacco use disorder ?F17.200 - Nicotine dependence, unspecified, uncomplicated (ICD-10) Surgical History (Updated 10/29/23 @ 21:05 by Renetta Aguirre MD) S/P angioplasty with stent ?Z95.820 - Peripheral vascular angioplasty status with implants and grafts (ICD-10) S/P hernia repair ?Z98.890 - Other specified postprocedural states (ICD-10) ?Z87.19 - Personal history of other diseases of the digestive system (ICD-10) History of appendectomy ?Z90.49 - Acquired absence of other specified parts of digestive tract (ICD- 10) H/O colonoscopy ?Z98.890 - Other specified postprocedural states (ICD-10) Social History (Updated 10/29/23 @ 19:47 by Renetta Aguirre MD) Narrative: Partnered to Renetta for many years, she would be medical decision maker if needed. Worked for [employer] for many years. Smoker (down from 2ppd to 5 cigarettes/day in 2023). Rare social ETOH. DNR/DNI; otherwise requests full medical treatment and amenable to transfer if needed What is your current living situation?: I presently have a place to live Problems where you live: no known problems Problems where you live details: n/a In the past 12 months, utilities in danger of being shut off: no In past 12 months, lack of transportation kept you from medical appts, meetings, work, or getting things needed for daily living: no In the past 12 mos, have been you worried that your food would run out before you had money to buy more?: never true In the past 12 mos, the food you bought just didn't last and you didn't have money to buy more?: never true Smoking Status: Current every day smoker What tobacco products do you use: cigarettes Do you use any of these nicotine containing products: None How often do you have a drink containing alcohol: monthly or less How often do you have six or more drinks on one occasion: Never AUDIT-C Alcohol total score: 1 Non-prescribed substance use: denies use Caffeine: Yes (2-3 cups in a.m.) How often does anyone, including family, friends and others, physically hurt you : never How often does anyone, including family, friends and others, insult or talk down to you: never How often does anyone, including family, friends and others, threaten you with harm: never How often does anyone, including family, friends and others, scream or curse at you: never service: No Meds Home Medications and Allergies Home Medications ?Medication ?Instructions ?Recorded ?Confirmed ?Type lisinopril 10 mg tablet 10 mg PO DAILY 09/18/21 10/29/23 History aspirin 81 mg tablet,delayed 81 mg PO DAILY 08/26/23 10/29/23 History release (Adult Low Dose Aspirin) rosuvastatin 20 mg tablet 20 mg PO DAILY 09/22/23 10/29/23 History albuterol sulfate 90 mcg/actuation 2 inh inhalation Q4H PRN 10/29/23 10/29/23 History aerosol inhaler (Ventolin HFA) folic acid 1 mg tablet 1 mg PO DAILY 10/29/23 10/29/23 History ondansetron HCl 4 mg tablet 4 mg PO Q8H PRN nausea and vomiting 10/29/23 10/29/23 History prednisone 10 mg tablet 10 mg PO DAILY PRN 10/29/23 10/29/23 History rivaroxaban 20 mg tablet (Xarelto) 20 mg PO QPM 10/29/23 10/29/23 History tramadol 50 mg tablet 50 mg PO HS pain 10/29/23 10/29/23 History vitamin B complex 1 tab PO DAILY 10/29/23 10/29/23 History Allergies Allergy/AdvReac Type Severity Reaction Status Date / Time carboplatin Allergy Severe Anaphylaxis Verified 10/29/23 12:54 Exam Narrative: Exam Narrative: GEN: Alert and oriented, sitting comfortably in bed and answering questions appropriately. No dyspnea, nontoxic HEENT: EOMIs bilaterally, no scleral icterus CV: RRR, No concerning murmurs R: LCTA bilaterally without concerning wheezing, air movement is adequate Ab: Soft and nontender Ext: wwp, no concerning edema Skin: Abrasion under right eye, hemostatic Neuro: No focal deficits or resting tremor, gait not observed Psych: Appropriate Const: Vital Signs, click to edit/add: Vital Signs - 24 hr 10/29/23 14:00 10/29/23 16:12 10/29/23 16:15 Temperature 97.3 F L Pulse Rate 82 85 Pulse Rate [Right Pulse Oximeter] 111 H Respiratory Rate 18 Blood Pressure Blood Pressure [Ri ght Upper Arm] 131/86 Pulse Oximetry 99 98 89 [facility] 10/29/23 16:30 10/29/23 16:32 10/29/23 16:45 Temperature Pulse Rate 88 86 84 Pulse Rate [Right Pulse Oximeter] Respiratory Rate Blood Pressure 96/67 Blood Pressure [Ri ght Upper Arm] Pulse Oximetry 96 96 96 Oxygen Delivery [facility] 10/29/23 17:00 10/29/23 17:03 10/29/23 17:37 Temperature 96.8 F L Pulse Rate 83 80 74 Pulse Rate [Right Pulse Oximeter] Respiratory Rate 16 Blood Pressure 116/60 130/69 Blood Pressure [Ri ght Upper Arm] Pulse Oximetry 97 94 99 [facility] 10/29/23 17:58 Temperature 97.2 F L Pulse Rate 81 Pulse Rate [Right Pulse Oximeter] Respiratory Rate 16 Blood Pressure 119/81 Blood Pressure [Ri ght Upper Arm] Pulse Oximetry 98 Oxygen Delivery [facility] Hospitalist - H&P: Result Labs Labs: Short CBC 10/29/23 Range/Units 14:40 WBC 1.91 L* (4.50-11.00) K/uL Hgb 6.3 L* (13.5-17.5) gm/dL Hct 19.5 L (37.0-53.0) % Plt Count 118 L (140-440) K/uL [facility] 10/29/23 14:40 Sodium 133 L Potassium 4.7 Chloride 105 Carbon Dioxide 22 BUN 41 H Creatinine 1.4 Glucose 92 Calcium 9.5 Assessment and Plan Assessment and plan (1) Anemia: Problem comment: - likely ABLA from presumed UGIB (elevated BUN, anticoagulated on Xarelto and ASA, dark stools) - DAHL as primary symptom - blood transfusion initiated in ED, has received total of 2U PRBCs on 10/28 - IV PPI - follow Hgb - Guaiac negative in ED, will repeat on the floor given symptoms - EGD ordered for 10/29 Status: Acute (2) PVD (peripheral vascular disease): Problem comment: - 10/01/23: Status post right SFA to P1 segment angioplasty and stenting at [place] with Dr. Regan, lifelong ASA recommended Status: Acute (3) Frequent falls: Problem comment: - has had 5 falls since 10/19 (this was his last dose of Immunotherapy), PT and OT ordered Status: Acute (4) 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 Dudley of Oncology Status: Acute (5) Internal jugular (IJ) vein thromboembolism, acute: Problem comment: - diagnosed on 10/15 - on Xarelto (holding for concern of GI bleed) Status: Acute (6) Pancytopenia: Problem comment: - noted, likely iatrogenic, follow Status: Acute Plan - per above - patient agreeable to plan - pharmacologic ppx contraindicated, SCDs ordered
[2023-10-29] MEDS: PANTOPRAZOLE SODIUM 40 MG INJ 80 MG IVP (19:35)
[2023-10-29] MEDS: SODIUM CHLORIDE 0.9 % (FLUSH) 10 ML SYRINGE 5 ML IVF ×3 (19:35→20:59)
[2023-10-29] MEDS: 0.9 % SODIUM CHLORIDE 250 ml IV (19:40)
--- NOTE | 2023-10-29 20:09 | PC.NURSE ---
End of shift - Pt arrived from ED at approximately 1823. Pt alert, oriented, cooperative. Reported feeling SOB at baseline that increased with exertion. RN did not note signs of increased work of breathing in pt at rest. Denies pain, N/V. Tolerating RA and regular fluids. Up independently in room, however with hx of falls prior to hospital stay RN explained importance of pt using call light and discussed the option of using a walker if needed. Pt arrived from ED receiving 1 of 2 units of ordered blood product. No infusion reactions noted during administration or at the end of infusion. Pt appears the be resting comfortably at end of shift with call light within reach.
[2023-10-29] MEDS: GABAPENTIN 100 MG CAPSULE PO (21:23)
[2023-10-30 03:24] VITALS: BP 107/58; PULSE 70; RESP 16; TEMP 36.9; O2SAT 96
--- NOTE | 2023-10-30 06:16 | PC.NURSE ---
End of shift note [id number]: Pt alert & oriented x 4 and able to make needs known. He transfers/ambulates independently in room. IV to L AC patent and SL. VSS and pt has been afebrile. Pt continent of bladder. He has received 2 units of PRBC since admission and reports he is feeling better when asked. Pt NPO since midnight in preparation for possible upper endoscopy/EGD today. Pt has been denying pain throughout the shift when asked and slept well. Call light within reach. ?
[2023-10-30 06:24] LABS: Basophils Percent Auto 1.3 % (0.0-3.0); Eosinophils Percent Auto 9.6 % (0.0-7.0); Hematocrit 24.3 % (37.0-53.0); Lymphocytes Percent Auto 50.2 % (20-44); Mean Corpuscular HGB Conc 33 gm/dL (32-36); Mean Corpuscular Hemoglobin 33 pg (26-34); Mean Corpuscular Volume 99 fL (80-100); Monocytes Percent Auto 15.7 % (0.0-11.0); Neutrophils Percent Auto 23.2 % (42.0-72.0); Platelet Count* 103 K/uL (140-440); RDW Coefficient of Variation % 17.6 % (11.5-15.5); Red Blood Count 2.46 m/uL (4.30-5.90); White Blood Count* 2.29 K/uL (4.50-11.00)
[2023-10-30 06:39] LABS: Chloride* 107 mmol/L (96-114)
[2023-10-30 06:40] LABS: Albumin* 3.5 g/dL (3.3-5.0); Sodium* 134 mmol/L (135-149)
[2023-10-30 06:41] LABS: Potassium* 4.6 mmol/L (3.6-5.1)
[2023-10-30 06:43] LABS: Alanine Aminotransferase* 47 U/L (4-50); Alkaline Phosphatase* 85 U/L (40-150); Anion Gap 5 mEq/L (7-15); Aspartate Amino Transferase* 45 U/L (12-35); Bilirubin Total* 0.6 mg/dL (0.1-1.5); Blood Urea Nitrogen* 34 mg/dL (7-30); Carbon Dioxide* 22 mmol/L (20-32); Creatinine* 1.3 mg/dL (0.5-1.5); Est. Creatinine Clearance* 52.07; Estimated Glomerular Filt Rate 59 ml/min; Total Protein* 5.9 g/dL (6.0-8.3)
[2023-10-30 06:44] LABS: Calcium* 9.3 mg/dL (8.4-10.6); Glucose* 84 mg/dL (60-115)
[2023-10-30 06:56] LABS: Slide Review Reflex No
[2023-10-30 07:00] VITALS: BP 121/72; PULSE 75; PULSE 88; RESP 16; TEMP 36.4; O2SAT 94
--- NOTE | 2023-10-30 08:34 | W.ANESCHARGE ---
Anesthesia Charges Start Date/Time Anesthesia Start Date: 10/30/23 Anesthesia Start Time: 08:06 Stop Date/Time Anesthesia Stop Date: 10/30/23 Anesthesia Stop Time: 08:31 Summary Emergency: RN NEUROSURGICAL
--- NOTE | 2023-10-30 09:17 | PC.SOCIAL ---
Discharge planning: die try out worker stamping met with pt this morning in his room. Pt was very pleasant and shared he didn't have any identified needs at this time and was anxious to go home. Pt goes to [facility] and is aware of how to get in contact with the social work department if any needs or questions were to arise for him. Social work to follow-up as needed.
[2023-10-30] MEDS: PANTOPRAZOLE SODIUM 40 MG INJ IVP (09:40)
[2023-10-30] MEDS: SODIUM CHLORIDE 0.9 % (FLUSH) 10 ML SYRINGE 5 ML IVF (09:41)
--- NOTE | 2023-10-30 10:26 | W.ANESCHARGE ---
Anesthesia Charges Start Date/Time Anesthesia Start Date: 10/30/23 Anesthesia Start Time: 08:06 Stop Date/Time Anesthesia Stop Date: 10/30/23 Anesthesia Stop Time: 08:31 Summary Emergency: MDA Extremes of Age - Over 70 or under 1: MDA
[2023-10-30 10:32] VITALS: BMI 20.2
--- NOTE | 2023-10-30 11:12 | PC.NURSE ---
shift note: vss stable. pt up indept. pt denies pain. IV dc'd intact LT AC. Reviewed dc instructions and copies sent with pt. Belongings reviewed and sent with pt
--- NOTE | 2023-10-30 11:19 | REH.OT ---
OT order received for evaluation and treat. Patient getting EGD on first attempt this AM and then discharged prior to second attempt from OT.
--- NOTE | 2023-10-30 15:27 | P.DS_ITS ---
DS: Providers Provider Date Seen: 10/30/23 Date of admission: 10/29/23 18:36 Primary care physician: Mikal Gunter MD Admitting Clinician: Renetta Aguirre MD Consults: 10/29/23 19:23 Consult to Physical Therapy [CONS] Routine Comment: Reason(s) for PT Consult:: Evaluate and Treat Any Restrictions?:: No Restrictions Consult to Orthotist Prosthetist [CONS] Routine Comment: Reason for Consult:: Discharge Planning Needs 10/29/23 19:24 Consult to Occupational Therapy [CONS] Routine Comment: Reason(s) for OT Consult:: Evaluate and Treat Any Restrictions?:: No Restrictions Attending Physician on discharge: Ibis Levin MD [facility] Date of Discharge: 10/30/23 DS: Diagnosis Discharge Diagnosis (1) Anemia: Status: Acute Problem details: - likely ABLA from presumed UGIB (elevated BUN, anticoagulated on Xarelto and ASA, dark stools) - DAHL as primary symptom - blood transfusion initiated in ED, has received total of 2U PRBCs on 10/28 - IV PPI - hemoglobin improved to 8.0. This is near his baseline. No GI bleeding overnight. - Guaiac negative in ED - EGD without active bleeding done morning of 10/29 (2) Non-small cell cancer of left lung: Status: Acute Problem details: - metastatic to spine, follows with Dr. Dudley of Oncology (3) Chronic anticoagulation: Status: Acute Problem details: -given his history of IJ thrombus embolism with his Port-A-Cath and history of peripheral vascular disease requiring right SFA to P1 segment angioplasty and stenting he has been on anticoagulation to include Xarelto and aspirin. Given the risk of continuing to clot verses the risk of a of GI bleeding/anemia we had a long discussion. At this point we will restart him on his anticoagulation but recommended close monitoring and routine hemoglobin checks. (4) Pancytopenia: Status: Acute Problem details: - noted, likely iatrogenic, follow (5) Internal jugular (IJ) vein thromboembolism, acute: Status: Acute Problem details: - diagnosed on 10/15 - on Xarelto (holding for concern of GI bleed) (6) Frequent falls: Status: Acute Problem details: - has had 5 falls since 10/19 (this was his last dose of Immunotherapy), PT and OT ordered (7) PVD (peripheral vascular disease): Status: Acute Problem details: - 10/01/23: Status post right SFA to P1 segment angioplasty and stenting at [place] with Dr. Regan, lifelong ASA recommended DS: Summary Hospital Course Hospital Course: FINAL DIAGNOSIS/FOLLOW UP ISSUES: -acute blood loss anemia. Transfused. Presumed angiodysplasia/GI bleed. EGD negative. IV PPI and then p.o. PPI. Serial hemoglobins as an outpatient. Continue anticoagulation despite the risk. -history of thromboembolism and peripheral vascular disease -history of lung cancer with spine Mets BRIEF HOSPITAL COURSE: Patient was admitted overnight. Synopsis of acute inpatient issues are outlined above. Chronic medical conditions with notable findings outlined above. He was transfused. No active bleeding. EGD negative. Given IV PPI and p.o. PPI. Close follow-up as an outpatient. Patient requesting discharge. DISCHARGE MEDICATIONS: See Reconciled list - SIGNIFICANT CHANGES: Pantoprazole extended release 40 mg daily added to his regimen Specific instructions to the patient and follow-up are outlined below. REVIEW OF SYSTEMS No new chest pain or dyspnea Pain controlled No voiding difficulties Tolerating diet challenge PHYSICAL EXAM: CONSTITUTIONAL: Alert, insightful. VITAL SIGNS: see record. HEENT: Normocephalic, atraumatic. PERRL, EOMI, conjunctivae pink, no scleral icterus. Ears and nose externally normal. Pharynx normal. NECK: No JVD. No carotid bruit, no thyromegaly, no adenopathy. CHEST: Clear to auscultation bilaterally. HEART: S1 and S2 normal. Edema ABDOMEN: Soft, nontender. Normal bowel sounds. MUSCULOSKELETAL: No gross joint deformity or swelling. NEURO: Cranial nerves intact. Grossly intact. No asymmetric findings. SKIN: No rashes, petechiae, concerning changes PSYCHIATRIC: Mood euthymic. DISPOSITION: Home with Time spent on discharge 37 minutes. Status at Discharge Functional status at discharge: uses cane/walker Overall status at discharge: patient is progressing back to baseline Time Spent with Patient Time attestation: Total time spent providing and/or coordinating discharge services: Time spent: Greater than 30 minutes Exam Const: Vital Signs, click to edit/add: Vital Signs - 24 hr 10/29/23 16:12 10/29/23 16:15 10/29/23 16:30 Temperature Pulse Rate 82 85 88 Pulse Rate [Right Pulse Oximeter] Respiratory Rate Blood Pressure Blood Pressure [Ri ght Arm] Pulse Oximetry 98 89 96 Oxygen Delivery Me thod 10/29/23 16:32 10/29/23 16:45 10/29/23 17:00 Temperature Pulse Rate 86 84 83 Pulse Rate [Right Pulse Oximeter] Respiratory Rate Blood Pressure 96/67 Blood Pressure [Ri ght Arm] Pulse Oximetry 96 96 97 Oxygen Delivery Me thod 10/29/23 17:03 10/29/23 17:04 10/29/23 17:37 Temperature 96.8 F L Pulse Rate 80 82 74 Pulse Rate [Right Pulse Oximeter] Respiratory Rate 16 Blood Pressure 116/60 130/69 Blood Pressure [Ri ght Arm] Pulse Oximetry 94 93 99 Oxygen Delivery Me thod 10/29/23 17:44 10/29/23 17:45 10/29/23 17:47 Temperature Pulse Rate 78 75 77 Pulse Rate [Right Pulse Oximeter] Respiratory Rate Blood Pressure 123/65 Blood Pressure [Ri ght Arm] Pulse Oximetry 98 100 98 Oxygen Delivery Me thod 10/29/23 17:58 10/29/23 17:59 10/29/23 18:00 Temperature 97.2 F L 97.6 F Pulse Rate 81 79 80 Pulse Rate [Right Pulse Oximeter] Respiratory Rate 16 20 Blood Pressure 119/81 Blood Pressure [Ri ght Arm] Pulse Oximetry 98 98 98 Oxygen Delivery Me thod 10/29/23 18:01 10/29/23 18:15 10/29/23 18:17 Temperature Pulse Rate 82 77 78 Pulse Rate [Right Pulse Oximeter] Respiratory Rate Blood Pressure 119/81 120/58 L Blood Pressure [Ri ght Arm] Pulse Oximetry 100 98 100 Oxygen Delivery Me thod 10/29/23 18:44 10/29/23 19:43 10/29/23 19:43 Temperature 98.1 F 98.3 F 98.3 F Pulse Rate 89 84 Pulse Rate [Right Pulse Oximeter] 85 Respiratory Rate 20 20 20 Blood Pressure 114/63 118/88 Blood Pressure [Ri ght Arm] 118/88 Pulse Oximetry 97 98 98 Oxygen Delivery Me od Room Air 10/29/23 19:57 10/29/23 19:58 10/29/23 20:06 Temperature 97.6 F 98.0 F Pulse Rate 79 Pulse Rate [Right Pulse Oximeter] 79 Respiratory Rate 20 18 20 Blood Pressure 115/60 Blood Pressure [Ri ght Arm] 117/53 L Pulse Oximetry 98 97 98 Oxygen Delivery Me thod Room Air Room Air 10/29/23 20:28 10/29/23 20:44 10/29/23 20:55 Temperature 98.5 F 98.5 F Pulse Rate 80 75 81 Pulse Rate [Right Pulse Oximeter] Respiratory Rate 18 18 Blood Pressure 132/72 120/64 Blood Pressure [Ri ght Arm] Pulse Oximetry 97 92 Oxygen Delivery Me thod 10/29/23 21:25 10/29/23 23:00 10/29/23 23:02 Temperature 98.0 F Pulse Rate 84 85 Pulse Rate [Right Pulse Oximeter] 85 Respiratory Rate 16 18 Blood Pressure 126/65 Blood Pressure [Ri ght Arm] Pulse Oximetry 94 Oxygen Delivery Me thod 10/29/23 23:26 10/29/23 23:26 10/30/23 03:24 Temperature 98.3 F 98.5 F Pulse Rate Pulse Rate [Right Pulse Oximeter] 85 70 Respiratory Rate 18 18 16 Blood Pressure Blood Pressure [Ri ght Arm] 114/66 107/58 L Pulse Oximetry 96 96 96 Oxygen Delivery Ks thod Room Air Room Air Room Air 10/30/23 07:00 10/30/23 07:00 10/30/23 07:00 Temperature 97.5 F L Pulse Rate 88 Pulse Rate [Right Pulse Oximeter] 75 Respiratory Rate 16 16 Blood Pressure Blood Pressure [Ri ght Arm] 121/72 Pulse Oximetry 94 94 Oxygen Delivery Me thod Room Air Room Air DS: Data Data Completed and Pending Labs on day of discharge: Labs from last 24 hours 10/30/23 10/29/23 10/29/23 05:50 15:45 14:40 WBC 2.29 L RBC 2.46 L Hgb 8.0 L Hct 24.3 L MCV 99 MCH 33 MCHC 33 RDW Coeff of Jolie 17.6 H Plt Count 103 L Neut % (Auto) 23.2 L Lymph % (Auto) 50.2 H [place] % (Auto) 15.7 H Eos % (Auto) 9.6 H Baso % (Auto) 1.3 Neut # (Auto) 0.50 L Lymph # (Auto) 1.10 [place] # (Auto) 0.40 Eos # (Auto) 0.20 Baso # (Auto) 0.00 Abs Immat Gran (auto) 0.00 Imm/Tot Granulo (auto) 0.0 Sodium 134 L Potassium 4.6 Chloride 107 Carbon Dioxide 22 Anion Gap 5 L BUN 34 H Creatinine 1.3 Estimated Creat Clear 52.07 Estimated GFR 59 Glucose 84 Calcium 9.3 Total Bilirubin 0.6 AST 45 H ALT 47 Alkaline Phosphatase 85 Total Protein 5.9 L Albumin 3.5 Stool Occult Blood Negative Blood Type B Negative Antibody Screen NEGATIVE Crossmatch (AHG) See Detail Discharge Plan Discharge Disposition: Home w/ Parent or Adult Date of Admission: 10/29/23 18:36 Attending Provider on Discharge: Ibis Levin Primary Care Provider: Mikal Gunter Anticipated Discharge Date/Time: 10/30/23 09:35 Discharge Medications: New pantoprazole 40 mg tablet,delayed release (DR/EC) 40 mg PO DAILY Qty: 30 0RF Continued magnesium oxide 400 mg (241.3 mg magnesium) tablet 400 mg PO BID Qty: 100 3RF aspirin [Adult Low Dose Aspirin] 81 mg tablet,delayed release (DR/EC) 81 mg PO DAILY prochlorperazine maleate [Compazine] 5 mg tablet 5 mg PO TID PRN (Reason: nausea and vomiting) Qty: 90 0RF rosuvastatin 20 mg tablet 20 mg PO DAILY budesonide-formoterol [Symbicort] 80-4.5 mcg/actuation HFA aerosol inhaler 2 puff inhalation BID Qty: 30.6 1RF famotidine [Pepcid] 20 mg tablet 20 mg PO BID Qty: 180 0RF lisinopril 10 mg tablet 10 mg PO DAILY Patient Comments: TAKE 1 TABLET BY MOUTH EVERY DAY prednisone 10 mg tablet 10 mg PO DAILY PRN Rx Instructions: TAKES FOR A FEW DAYS AFTER CHEMO, LAST DOSE 10/22/23 ondansetron HCl 4 mg tablet 4 mg PO Q8H PRN (Reason: nausea and vomiting) tramadol 50 mg tablet 50 mg PO HS vitamin B complex Tablet 1 tab PO DAILY folic acid 1 mg tablet 1 mg PO DAILY Xarelto 20 mg tablet 20 mg PO QPM Rx Instructions: must administer with evening meal albuterol sulfate [Ventolin HFA] 90 mcg/actuation HFA aerosol inhaler 2 inh inhalation Q4H PRN calcium carbonate-vitamin D3 [Calcium 500 With D] 500 mg-10 mcg (400 unit) tablet 1 tab PO BID Qty: 90 3RF cyclobenzaprine 10 mg tablet 10 mg PO TID PRN (Reason: muscle spasm) Qty: 180 3RF gabapentin 100 mg capsule 100 mg PO HS Qty: 90 3RF levothyroxine 112 mcg tablet 112 mcg PO DAILY Qty: 90 3RF Discharge Orders: Discharge Order (Routine); Ordered 10/30/23 Ordered By: Ibis Levin Patient Education: Aspirin (By mouth), Pantoprazole (By mouth), Rivaroxaban (By mouth) Additional Instructions: 1. We discussed the risks and benefits of continuing your anticoagulation (Xarelto, Aspirin). While you may start bleeding again (presumed UGI bleed from wretching/vomiting about a week ago) - the risk of not taking these medications is likely higher to you. If you notice any black/tarry/sticky or red stools, stop the Xarelto and aspirin immediately and proceed to the ED if you are feeling poorly/weak. 2. Discuss with your oncology team about frequent hemoglobin checks and scheduling a colonoscopy if needed. 3. Take the pantoprazole (stomach acid apartment locator) every day on an empty stomach Activity Level: Activity as Tolerated Discharge Diet: Regular Follow Up Appointments: Charity Dudley MD [Staff Physician] - ( [facility] team will contact the patient for the appointment; needs hemoglobin checked.) Forms: Tryouts Info Instructions
== END 2023-10-30 11:00 | disposition home or self-care (01) | DRG 811 ==
LOC: ED 15:29 → MEDSURG 18:22
PROVIDERS: Admitting Provider Family Medicine; Emergency Provider Emergency Medicine; PCP Family Medicine; Visit Provider Family Medicine
DX: D62 Acute posthemorrhagic anemia (principal); K55.21 Angiodysplasia of colon with hemorrhage; C34.92 Malignant neoplasm of unspecified part of left bronchus or lung; C79.51 Secondary malignant neoplasm of bone; I82.C11 Acute embolism and thrombosis of right internal jugular vein; D61.810 Antineoplastic chemotherapy induced pancytopenia; I73.9 Peripheral vascular disease, unspecified; R29.6 Repeated falls; Z91.81 History of falling; Z79.01 Long term (current) use of anticoagulants; J43.9 Emphysema, unspecified; F17.200 Nicotine dependence, unspecified, uncomplicated; R06.02 Shortness of breath
CPT/HCPCS: 00731; 36415; 36430; 43235; 70450; 71046; 80048; 80053; 82270; 83605; 83880; 85025; 86850; 86900; 86901; 86922; 93005; 97161; 99100; 99140; 99284; 99285; A9270; J2470; J2704; J7050; P9016

== ENCOUNTER 2023-11-03 13:06 | Emergency (ER) | payer OTHER, SELFPAY ==
[2023-11-03 13:17] VITALS: BP 124/60; PULSE 65; RESP 20; TEMP 36.1; O2SAT 97; BMI 20.7
--- NOTE | 2023-11-03 13:59 | ED.GENADULT ---
HPI - General Adult General Chief complaint: Shortness of Breath/Dyspnea Stated complaint: low Hgb, visual changes from [facility] Time Seen by Provider: 11/03/23 13:14 History of Present Illness HPI narrative: This 68-year-old male is a patient at the cancer clinic for stage IV lung cancer. He is currently on chemotherapy. He was sent here because his hemoglobin today returned at 6.6. He had previous hemoglobin at 8.5. Prior to this he did have 1 blood transfusion to bring him up to 8.5. He reports some generalized weakness and shortness of breath. He does not have any pain. He reports a blood clot that was discovered in his jugular vein and is currently taking Xarelto. He does not have any neurologic deficits but does report episodes of disturbance in his vision last 20 or 30 minutes. He states that seems more like a flicker ring light in part of his visual field. He came from the [facility] where labs were drawn and this included type and cross for blood transfusion. I did speak with the clinician there who stated that if everything looks okay he could get a unit of blood here and a 2nd unit at the clinic tomorrow. Related Data Home Medications ?Medication ?Instructions ?Recorded ?Confirmed lisinopril 10 mg tablet 10 mg PO DAILY 09/18/21 10/29/23 aspirin 81 mg tablet,delayed 81 mg PO DAILY 08/26/23 10/29/23 release (Adult Low Dose Aspirin) rosuvastatin 20 mg tablet 20 mg PO DAILY 09/22/23 10/29/23 albuterol sulfate 90 mcg/actuation 2 inh inhalation Q4H PRN 10/29/23 10/29/23 aerosol inhaler (Ventolin HFA) folic acid 1 mg tablet 1 mg PO DAILY 10/29/23 10/29/23 ondansetron HCl 4 mg tablet 4 mg PO Q8H PRN nausea and vomiting 10/29/23 10/29/23 prednisone 10 mg tablet 10 mg PO DAILY PRN 10/29/23 10/29/23 rivaroxaban 20 mg tablet (Xarelto) 20 mg PO QPM 10/29/23 10/29/23 tramadol 50 mg tablet 50 mg PO HS pain 10/29/23 10/29/23 vitamin B complex 1 tab PO DAILY 10/29/23 10/29/23 Previous Rx's ?Medication ?Instructions ?Recorded calcium carbonate 500 mg-vitamin 1 tab PO BID #90 tabs 05/18/23 D3 10 mcg (400 unit) tablet (Calcium 500 With D) prochlorperazine maleate 5 mg 5 mg PO TID PRN nausea and 08/26/23 tablet (Compazine) vomiting #90 tabs cyclobenzaprine 10 mg tablet 10 mg PO TID PRN muscle spasm #180 09/16/23 tabs Symbicort 80 mcg-4.5 mcg/actuation 2 puff inhalation BID #30.6 grams 09/22/23 HFA aerosol inhaler (budesonide-formoterol) famotidine 20 mg tablet (Pepcid) 20 mg PO BID #180 tabs 09/22/23 gabapentin 100 mg capsule 100 mg PO HS #90 caps 09/29/23 levothyroxine 112 mcg tablet 112 mcg PO DAILY #90 tabs 10/05/23 magnesium oxide 400 mg (241.3 mg 400 mg PO BID #100 tabs 10/20/23 magnesium) tablet pantoprazole 40 mg tablet,delayed 40 mg PO DAILY #30 tabs 10/30/23 release Allergies Allergy/AdvReac Type Severity Reaction Status Date / Time carboplatin Allergy Severe Anaphylaxis Verified 11/03/23 13:21 Review of Systems Status of ROS: Reports: 10 or more systems reviewed and unremarkable except as noted in History and below Narrative: Constitutional: No fevers, no weight gain or loss. Eyes: No discharge. Episodes of visual changes as described above. HENT: No congestion, no sore throat, no ear pain. Cardiovascular: No chest pain, no palpitations. Respiratory: No wheezes, no cough. He reports shortness of breath with exertion. Gastrointestinal: No abdominal pain, no vomiting, no diarrhea. Genitourinary: No dysuria, no hematuria. Musculoskeletal: Normal range of motion. Skin: No rashes, no pruritis. Neurological: No weakness, sensory change, speech change. He does report some episodes of lightheadedness. Endo/Heme/Allergies: No bruising or bleeding. No polydipsia. Pysch: no suicidality, no anxiety, no insomnia. All other systems reviewed and are negative. [facility] Medical History (Updated 11/03/23 @ 15:52 by Carlos Obrien MD) Chronic anticoagulation ?Z79.01 - senior living (current) use of anticoagulants (ICD-10) Encounter for immunotherapy ?Z29.8 - Encounter for other specified prophylactic measures (ICD-10) Encounter for chemotherapy management ?Z51.11 - Encounter for antineoplastic chemotherapy (ICD-10) Anemia associated with chemotherapy ?D64.81 - Anemia due to antineoplastic chemotherapy (ICD-10) ?T45.1X5A - Adverse effect of antineoplastic and immunosuppressive drugs, initial encounter (ICD-10) Chemotherapy induced neutropenia ?D70.1 - Agranulocytosis secondary to cancer chemotherapy (ICD-10) ?T45.1X5A - Adverse effect of antineoplastic and immunosuppressive drugs, initial encounter (ICD-10) Insomnia ?G47.00 - Insomnia, unspecified (ICD-10) PVD (peripheral vascular disease) ?I73.9 - Peripheral vascular disease, unspecified (ICD-10) Infusion reaction ?T80.90XA - Unspecified complication following infusion and therapeutic injection, initial encounter (ICD-10) 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 - Hypothyroidism due to medicaments and other exogenous substances (ICD-10) Dyspnea ?R06.00 - Dyspnea, unspecified (ICD-10) Bilateral leg cramps ?R25.2 - Cramp and spasm (ICD-10) Hyperkalemia ?E87.5 - Hyperkalemia (ICD-10) Cervical spinal stenosis ?M48.02 - Spinal stenosis, cervical region (ICD-10) Central venous catheter in place ?Z78.9 - Other specified health status (ICD-10) Cancer associated pain ?G89.3 - Neoplasm related pain (acute) (chronic) (ICD-10) Emphysema/COPD ?J43.9 - Emphysema, unspecified (ICD-10) Dermatitis ?L30.9 - Dermatitis, unspecified (ICD-10) Colon polyp ?K63.5 - Polyp of colon (ICD-10) Tobacco use disorder ?F17.200 - Nicotine dependence, unspecified, uncomplicated (ICD-10) Surgical History (Updated 10/29/23 @ 21:05 by Renetta Aguirre MD) S/P angioplasty with stent ?Z95.820 - Peripheral vascular angioplasty status with implants and grafts (ICD-10) S/P hernia repair ?Z98.890 - Other specified postprocedural states (ICD-10) ?Z87.19 - Personal history of other diseases of the digestive system (ICD-10) History of appendectomy ?Z90.49 - Acquired absence of other specified parts of digestive tract (ICD-10) H/O colonoscopy ?Z98.890 - Other specified postprocedural states (ICD-10) Social History (Updated 10/29/23 @ 19:47 by Renetta Aguirre MD) Narrative: Partnered to Renetta for many years, she would be medical decision maker if needed. Worked for [employer] for many years. Smoker (down from 2ppd to 5 cigarettes/day in 2023). Rare social ETOH. DNR/DNI; otherwise requests full medical treatment and amenable to transfer if needed What is your current living situation?: I presently have a place to live Problems where you live: no known problems Problems where you live details: n/a In the past 12 months, utilities in danger of being shut off: no In past 12 months, lack of transportation kept you from medical appts, meetings, work, or getting things needed for daily living: no In the past 12 mos, have been you worried that your food would run out before you had money to buy more?: never true In the past 12 mos, the food you bought just didn't last and you didn't have money to buy more?: never true Smoking Status: Current every day smoker What tobacco products do you use: cigarettes Do you use any of these nicotine containing products: None Second hand tobacco smoke exposure: No How often do you have a drink containing alcohol: monthly or less How often do you have six or more drinks on one occasion: Never AUDIT-C Alcohol total score: 1 Non-prescribed substance use: denies use Caffeine: Yes (2-3 cups in a.m.) How often does anyone, including family, friends and others, physically hurt you: never How often does anyone, including family, friends and others, insult or talk down to you: never How often does anyone, including family, friends and others, threaten you with harm: never How often does anyone, including family, friends and others, scream or curse at you: never service: No Exam Narrative: Exam Narrative: Constitutional: Well-developed, well-nourished, no acute distress. HEENT: Normocephalic, atraumatic. Neck: Normal range of motion. Nontender. Supple. Heart: Regular. No murmurs. Normal rate. Intact distal pulses. Lungs: Clear to auscultation. No chest discomfort. No wheezes, rhonchi, or rales. Abdomen: Normal bowel sounds. Nontender. No rebound tenderness. Genitalia: Deferred. Back: No midline tenderness. Normal range of motion. Extremities: Normal range of motion. No injury. Skin: Intact. No rash. Warm. No erythema or pallor. Neurologic: No altered sensation. No weakness. Alert and oriented. No facial asymmetry. Tongue is midline. [id number] is normal. No pronator drift. Consulting Nurse strength is equal bilaterally. Able to raise each leg from the bed. Visual vance are intact. Psychiatric: No suicidality. No anxiety or depression. No insomnia. Nursing notes and vitals signs are reviewed. Const: Vital Signs, click to edit/add: Vital Signs - 24 hr 11/03/23 13:17 11/03/23 14:22 11/03/23 14:38 Temperature 97 F L 96.7 F L 97.1 F L Pulse Rate 69 67 Pulse Rate [Right Pulse Oximeter] 65 Respiratory Rate 20 20 18 Blood Pressure 123/63 130/66 Blood Pressure [Ri ght Upper Arm] 124/60 Pulse Oximetry 97 Oxygen Delivery Me thod Room Air 11/03/23 15:23 Temperature 97 F L Pulse Rate 73 Pulse Rate [Right Pulse Oximeter] Respiratory Rate 18 Blood Pressure 133/66 Blood Pressure [Ri ght Upper Arm] Pulse Oximetry Oxygen Delivery Me thod Course Vital Signs Vital signs: Initial Vital Signs Temperature 97 F L 11/03/23 13:17 Temperature Source Temporal Artery Scan 11/03/23 13:17 Pulse Rate 65 11/03/23 13:17 Pulse Rhythm Regular 11/03/23 13:17 Respiratory Rate 20 11/03/23 13:17 Blood Pressure 124/60 11/03/23 13:17 Blood Pressure Mean 81 11/03/23 13:17 Blood Pressure Position Semi-Fowlers 11/03/23 13:17 Pulse Oximetry 97 11/03/23 13:17 Oxygen Delivery Method Room Air 11/03/23 13:17 Vital Signs Temperature 97 F L 11/03/23 13:17 Pulse Rate 65 11/03/23 13:17 Respiratory Rate 20 11/03/23 13:17 Blood Pressure 124/60 11/03/23 13:17 Pulse Oximetry 97 11/03/23 13:17 Oxygen Delivery Method Room Air 11/03/23 13:17 Temperature 97 F L 11/03/23 15:23 Pulse Rate 73 11/03/23 15:23 Respiratory Rate 18 11/03/23 15:23 Blood Pressure 133/66 11/03/23 15:23 Pulse Oximetry 97 11/03/23 13:17 Oxygen Delivery Method Room Air 11/03/23 13:17 Medical Decision Making MDM Narrative Medical decision making narrative: This patient comes in from infusion clinic because of weakness and shortness of breath with some lightheadedness related to a drop in his hemoglobin secondary to chemotherapy. His hemoglobin today at the clinic returned at 6.6. Patient also is reporting some visual changes that occur on occasion. He is currently taking Xarelto and his examination today is completely normal with regard to his vision and neurologic exam. The patient describes these episodes of visual change has some flashing lights that flicker. This is rather typical of scintillating scotoma. I did show some images online that people have used to describe what their visual field seems like and he identified with this. The patient did receive 1 unit of packed red blood cells and will be able to return to the infusion clinic tomorrow for a 2nd unit. I advised him to follow up with his regular caregivers regarding the recurrent anemia which is likely secondary to chemotherapy and perhaps some bone marrow suppression. Lab Data Labs: Lab Results 11/03/23 Range/Units 12:20 Blood Type B Negative Antibody Screen NEGATIVE Crossmatch (AHG) See Detail Discharge Plan Discharge Clinical Impression: Anemia, Non-small cell cancer of left lung, Scintillating scotoma Patient Disposition: Home w/ Parent or Adult Condition: Improved Additional Instructions: Follow-up in the infusion clinic to receive a 2nd unit of packed red blood cells tomorrow. Return if worsening. Prescriptions: No Action magnesium oxide 400 mg (241.3 mg magnesium) tablet 400 mg PO BID Qty: 100 3RF aspirin [Adult Low Dose Aspirin] 81 mg tablet,delayed release (DR/EC) 81 mg PO DAILY prochlorperazine maleate [Compazine] 5 mg tablet 5 mg PO TID PRN (Reason: nausea and vomiting) Qty: 90 0RF rosuvastatin 20 mg tablet 20 mg PO DAILY budesonide-formoterol [Symbicort] 80-4.5 mcg/actuation HFA aerosol inhaler 2 puff inhalation BID Qty: 30.6 1RF famotidine [Pepcid] 20 mg tablet 20 mg PO BID Qty: 180 0RF lisinopril 10 mg tablet 10 mg PO DAILY Patient Comments: TAKE 1 TABLET BY MOUTH EVERY DAY prednisone 10 mg tablet 10 mg PO DAILY PRN Rx Instructions: TAKES FOR A FEW DAYS AFTER CHEMO, LAST DOSE 10/22/23 ondansetron HCl 4 mg tablet 4 mg PO Q8H PRN (Reason: nausea and vomiting) tramadol 50 mg tablet 50 mg PO HS vitamin B complex Tablet 1 tab PO DAILY folic acid 1 mg tablet 1 mg PO DAILY Xarelto 20 mg tablet 20 mg PO QPM Rx Instructions: must administer with evening meal albuterol sulfate [Ventolin HFA] 90 mcg/actuation HFA aerosol inhaler 2 inh inhalation Q4H PRN pantoprazole 40 mg tablet,delayed release (DR/EC) 40 mg PO DAILY Qty: 30 0RF calcium carbonate-vitamin D3 [Calcium 500 With D] 500 mg-10 mcg (400 unit) tablet 1 tab PO BID Qty: 90 3RF cyclobenzaprine 10 mg tablet 10 mg PO TID PRN (Reason: muscle spasm) Qty: 180 3RF gabapentin 100 mg capsule 100 mg PO HS Qty: 90 3RF levothyroxine 112 mcg tablet 112 mcg PO DAILY Qty: 90 3RF Follow Up/Referrals: Martina Cid, KACIE, DIRECTOR OF PAYROLL [Primary Care Provider] - Stand Alone Forms: [facility] Info Instructions
[2023-11-03 14:22] VITALS: BP 123/63; PULSE 69; RESP 20; TEMP 35.9
[2023-11-03 14:38] VITALS: BP 130/66; PULSE 67; RESP 18; TEMP 36.2
[2023-11-03 15:23] VITALS: BP 133/66; PULSE 73; RESP 18; TEMP 36.1
[2023-11-03 15:59] VITALS: BP 146/69; PULSE 69; RESP 18; TEMP 36.4
--- NOTE | 2023-11-07 03:05 | ED_ITS ---
HPI - General Adult General Date Seen: 11/02/23 Chief complaint: Shortness of Breath/Dyspnea Stated complaint: low Hgb, [facility] Time Seen by Provider: 11/03/23 13:14 History of Present Illness HPI narrative: This ER note is an addendum to my ER note from 11/01. I inadvertently omitted this patient's physical exam from my previous note. Related Data Home Medications ?Medication ?Instructions ?Recorded ?Confirmed lisinopril 10 mg tablet 10 mg PO DAILY 09/18/21 10/29/23 aspirin 81 mg tablet,delayed 81 mg PO DAILY 08/26/23 10/29/23 release (Adult Low Dose Aspirin) rosuvastatin 20 mg tablet 20 mg PO DAILY 09/22/23 10/29/23 albuterol sulfate 90 mcg/actuation 2 inh inhalation Q4H PRN 10/29/23 10/29/23 aerosol inhaler (Ventolin HFA) folic acid 1 mg tablet 1 mg PO DAILY 10/29/23 10/29/23 ondansetron HCl 4 mg tablet 4 mg PO Q8H PRN nausea and vomiting 10/29/23 10/29/23 prednisone 10 mg tablet 10 mg PO DAILY PRN 10/29/23 10/29/23 rivaroxaban 20 mg tablet (Xarelto) 20 mg PO QPM 10/29/23 10/29/23 tramadol 50 mg tablet 50 mg PO HS pain 10/29/23 10/29/23 vitamin B complex 1 tab PO DAILY 10/29/23 10/29/23 Previous Rx's ?Medication ?Instructions ?Recorded calcium carbonate 500 mg-vitamin 1 tab PO BID #90 tabs 05/18/23 D3 10 mcg (400 unit) tablet (Calcium 500 With D) prochlorperazine maleate 5 mg 5 mg PO TID PRN nausea and 08/26/23 tablet (Compazine) vomiting #90 tabs cyclobenzaprine 10 mg tablet 10 mg PO TID PRN muscle spasm #180 09/16/23 tabs Symbicort 80 mcg-4.5 mcg/actuation 2 puff inhalation BID #30.6 grams 09/22/23 HFA aerosol inhaler (budesonide-formoterol) famotidine 20 mg tablet (Pepcid) 20 mg PO BID #180 tabs 07/09/24 gabapentin 100 mg capsule 100 mg PO HS #90 caps 09/29/23 levothyroxine 112 mcg tablet 112 mcg PO DAILY #90 tabs 10/05/23 magnesium oxide 400 mg (241.3 mg 400 mg PO BID #100 tabs 10/20/23 magnesium) tablet pantoprazole 40 mg tablet,delayed 40 mg PO DAILY #30 tabs 10/30/23 release Allergies Allergy/AdvReac Type Severity Reaction Status Date / Time carboplatin Allergy Severe Anaphylaxis Verified 11/03/23 13:21 [facility] Medical History (Updated 11/07/23 @ 00:02 by Background Daemon) Internal jugular (IJ) vein thromboembolism, acute ?I82.C19 - Acute embolism and thrombosis of unspecified internal jugular vein (ICD-10) Anemia ?D64.9 - Anemia, unspecified (ICD-10) Chronic anticoagulation ?Z79.01 - [facility] (current) use of anticoagulants (ICD-10) Encounter for immunotherapy ?Z29.8 - Encounter for other specified prophylactic measures (ICD-10) Encounter for chemotherapy management ?Z51.11 - Encounter for antineoplastic chemotherapy (ICD-10) Anemia associated with chemotherapy ?D64.81 - Anemia due to antineoplastic chemotherapy (ICD-10) ?T45.1X5A - Adverse effect of antineoplastic and immunosuppressive drugs, initial encounter (ICD-10) Chemotherapy induced neutropenia ?D70.1 - Agranulocytosis secondary to cancer chemotherapy (ICD-10) ?T45.1X5A - Adverse effect of antineoplastic and immunosuppressive drugs, initial encounter (ICD-10) Insomnia ?G47.00 - Insomnia, unspecified (ICD-10) PVD (peripheral vascular disease) ?I73.9 - Peripheral vascular disease, unspecified (ICD-10) Infusion reaction ?T80.90XA - Unspecified complication following infusion and therapeutic injection, initial encounter (ICD-10) 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 - Hypothyroidism due to medicaments and other exogenous substances (ICD-10) Dyspnea ?R06.00 - Dyspnea, unspecified (ICD-10) Bilateral leg cramps ?R25.2 - Cramp and spasm (ICD-10) Hyperkalemia ?E87.5 - Hyperkalemia (ICD-10) Cervical spinal stenosis ?M48.02 - Spinal stenosis, cervical region (ICD-10) Central venous catheter in place ?Z78.9 - Other specified health status (ICD-10) Cancer associated pain ?G89.3 - Neoplasm related pain (acute) (chronic) (ICD-10) Emphysema/COPD ?J43.9 - Emphysema, unspecified (ICD-10) Dermatitis ?L30.9 - Dermatitis, unspecified (ICD-10) Colon polyp ?K63.5 - Polyp of colon (ICD-10) Tobacco use disorder ?F17.200 - Nicotine dependence, unspecified, uncomplicated (ICD-10) Surgical History (Updated 10/29/23 @ 21:05 by Renetta Aguirre MD) S/P angioplasty with stent ?Z95.820 - Peripheral vascular angioplasty status with implants and grafts (ICD-10) S/P hernia repair ?Z98.890 - Other specified postprocedural states (ICD-10) ?Z87.19 - Personal history of other diseases of the digestive system (ICD-10) History of appendectomy ?Z90.49 - Acquired absence of other specified parts of digestive tract (ICD- 10) H/O colonoscopy ?Z98.890 - Other specified postprocedural states (ICD-10) Social History (Updated 10/29/23 @ 19:47 by Renetta Aguirre MD) Narrative: Partnered to Renetta for many years, she would be medical decision maker if needed. Worked for [employer] for many years. Smoker (down from 2ppd to 5 cigarettes/day in 2023). Rare social ETOH. DNR/DNI; otherwise requests full medical treatment and amenable to transfer if needed What is your current living situation?: I presently have a place to live Problems where you live: no known problems Problems where you live details: n/a In the past 12 months, utilities in danger of being shut off: no In past 12 months, lack of transportation kept you from medical appts, meetings, work, or getting things needed for daily living: no In the past 12 mos, have been you worried that your food would run out before you had money to buy more?: never true In the past 12 mos, the food you bought just didn't last and you didn't have money to buy more?: never true Smoking Status: Current every day smoker What tobacco products do you use: ciga rettes Do you use any of these nicotine containing products: None Second hand tobacco smoke exposure: No How often do you have a drink containing alcohol: monthly or less How often do you have six or more drinks on one occasion: Never AUDIT-C Alcohol total score: 1 Non-prescribed substance use: denies use Caffeine: Yes (2-3 cups in a.m.) How often does anyone, including family, friends and others, physically hurt you : never How often does anyone, including family, friends and others, insult or talk down to you: never How often does anyone, including family, friends and others, threaten you with harm: never How often does anyone, including family, friends and others, scream or curse at you: never service: No Exam Narrative: Exam Narrative: Constitutional: Appears well-developed but chronically ill-appearing. Pale but not mottled or diaphoretic. Alert. Conversant. Non toxic. HENT: Head: Atraumatic. No depressed skull fracture, Raccoon Eyes, Lynch's sign, or hemotympanum. Face normal. TMs normal Nose: Nose normal. Mouth/Throat: Oral mucosa is clear and moist. no trismus. Pharynx normal. Tonsils symmetric. No tonsillar enlargement, erythema, or exudate. Eyes: Conjunctivae normal. EOM normal. Pupils equal, round, and reactive to l ight. No scleral icterus. Neck: Normal range of motion. Neck supple. No tracheal deviation present. No JVD Cardiovascular: Normal rate, regular rhythm. No gallop. No friction rub. No murmur heard. Symmetric radial artery pulses . Port in place in right upper chest. Pulmonary/Chest: Effort normal. No stridor. No respiratory distress. No wheezes. No rales. No rhonchi . No tenderness. Abdominal: Soft. Bowel sounds normal. No distension. No mass. No tenderness. No rebound. No guarding. Rectal: Small amount of black stool present at the rectal opening. This was sampled for Hemoccult testing. Digital exam not performed because the patient has low white count. Musculoskeletal: RUE: Normal range of motion. No tenderness. No deformity LUE: Normal range of motion. No tenderness. No deformity RLE: Normal range of motion. No edema. No tenderness. No deformity LLE: Normal range of motion. No edema. No tenderness. No deformity Neurological: Alert and oriented to person, place, and time. Normal strength. CN II-VII intact. No sensory deficit. GCS eye subscore is 4. GCS verbal subscore is 5. GCS motor subscore is 6. Normal coordination Skin: Skin is warm and dry. No rash noted. Pale but no mottling or diaphoresis. Normal capillary refill. Psychiatric: Normal mood. Normal affect. Course Vital Signs Vital signs: Initial Vital Signs Temperature 97 F L 11/03/23 13:17 Temperature Source Temporal Artery Scan 11/03/23 13:17 Pulse Rate 65 11/03/23 13:17 Pulse Rhythm Regular 11/03/23 13:17 Respiratory Rate 20 11/03/23 13:17 Blood Pressure 124/60 11/03/23 13:17 Blood Pressure Mean 81 11/03/23 13:17 Blood Pressure Position Semi-Fowlers 11/03/23 13:17 Pulse Oximetry 97 11/03/23 13:17 Oxygen Delivery Method Room Air 11/03/23 13:17 Vital Signs Temperature 97 F L 11/03/23 13:17 Pulse Rate 65 11/03/23 13:17 Respiratory Rate 20 11/03/23 13:17 Blood Pressure 124/60 11/03/23 13:17 Pulse Oximetry 97 11/03/23 13:17 Oxygen Delivery Method Room Air 11/03/23 13:17 Temperature 97.6 F 11/03/23 15:59 Pulse Rate 69 11/03/23 15:59 Respiratory Rate 18 11/03/23 15:59 Blood Pressure 146/69 H 11/03/23 15:59 Pulse Oximetry 97 11/03/23 13:17 Oxygen Delivery Method Room Air 11/03/23 13:17 Medical Decision Making Lab Data Labs: Lab Results 11/03/23 Range/Units 12:20 Blood Type B Negative Antibody Screen NEGATIVE Crossmatch (AHG) See Detail Discharge Plan Discharge Clinical Impression: Anemia, Non-small cell cancer of left lung, Scintillating scotoma Patient Disposition: Home w/ Parent or Adult Condition: Improved Additional Instructions: Follow-up in the infusion clinic to receive a 2nd unit of packed red blood cells tomorrow. Return if worsening. Prescriptions: No Action magnesium oxide 400 mg (241.3 mg magnesium) tablet 400 mg PO BID Qty: 100 3RF aspirin [Adult Low Dose Aspirin] 81 mg tablet,delayed release (DR/EC) 81 mg PO DAILY prochlorperazine maleate [Compazine] 5 mg tablet 5 mg PO TID PRN (Reason: nausea and vomiting) Qty: 90 0RF rosuvastatin 20 mg tablet 20 mg PO DAILY budesonide-formoterol [Symbicort] 80-4.5 mcg/actuation HFA aerosol inhaler 2 puff inhalation BID Qty: 30.6 1RF famotidine [Pepcid] 20 mg tablet 20 mg PO BID Qty: 180 0RF lisinopril 10 mg tablet 10 mg PO DAILY Patient Comments: TAKE 1 TABLET BY MOUTH EVERY DAY prednisone 10 mg tablet 10 mg PO DAILY PRN Rx Instructions: TAKES FOR A FEW DAYS AFTER CHEMO, LAST DOSE 10/22/23 ondansetron HCl 4 mg tablet 4 mg PO Q8H PRN (Reason: nausea and vomiting) tramadol 50 mg tablet 50 mg PO HS vitamin B complex Tablet 1 tab PO DAILY folic acid 1 mg tablet 1 mg PO DAILY Xarelto 20 mg tablet 20 mg PO QPM Rx Instructions: must administer with evening meal albuterol sulfate [Ventolin HFA] 90 mcg/actuation HFA aerosol inhaler 2 inh inhalation Q4H PRN pantoprazole 40 mg tablet,delayed release (DR/EC) 40 mg PO DAILY Qty: 30 0RF calcium carbonate-vitamin D3 [Calcium 500 With D] 500 mg-10 mcg (400 unit) tablet 1 tab PO BID Qty: 90 3RF cyclobenzaprine 10 mg tablet 10 mg PO TID PRN (Reason: muscle spasm) Qty: 180 3RF gabapentin 100 mg capsule 100 mg PO HS Qty: 90 3RF levothyroxine 112 mcg tablet 112 mcg PO DAILY Qty: 90 3RF Follow Up/Referrals: Martina Cid, KACIE, DIGITAL OPERATIONS ANALYST [Primary Care Provider] - Stand Alone [facility] Inst[facility]
== END 2023-11-03 16:07 | disposition home or self-care (01) ==
PROVIDERS: Emergency Provider Emergency Medicine Emergency Medical Services; PCP Nurse Practitioner Family
DX: D64.9 Anemia, unspecified (principal); C34.92 Malignant neoplasm of unspecified part of left bronchus or lung; H53.123 Transient visual loss, bilateral
CPT/HCPCS: 36415; 36430; 86850; 86900; 86901; 86922; 99281; 99284; P9016

== ENCOUNTER 2023-11-09 08:30 | Outpatient (RCR) | payer OTHER, SELFPAY ==
[2023-05-13 14:50] VITALS: BP 123/83; PULSE 75; RESP 16; TEMP 36.8; O2SAT 92
[2023-05-13] MEDS: PEGFILGRASTIM-JMDB (Fulphila) 6 MG/0.6 ML SUBCUT (15:02)
--- NOTE | 2023-05-18 11:52 | ONC.NURNOTE ---
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
[2023-05-19 11:15] VITALS: BP 152/75; PULSE 78; RESP 18; TEMP 36.1; O2SAT 96
[2023-05-19 11:16] VITALS: BP 136/74; PULSE 78
[2023-05-19 11:24] LABS: Basophils Percent Auto 0.9 % (0.0-3.0); Eosinophils Percent Auto 8.1 % (0.0-7.0); Hematocrit 40.5 % (37.0-53.0); Hemoglobin* 13.1 gm/dL (13.5-17.5); Immature Granulocytes Pct Auto 2.2 %; Lymphocytes Percent Auto 28.4 % (20-44); Mean Corpuscular HGB Conc 32 gm/dL (32-36); Mean Corpuscular Hemoglobin 29 pg (26-34); Mean Corpuscular Volume 90 fL (80-100); Monocytes Percent Auto 23.1 % (0.0-11.0); Neutrophils Percent Auto 37.3 % (42.0-72.0); Platelet Count* 73 K/uL (140-440); RDW Coefficient of Variation % 14.5 % (11.5-15.5); Red Blood Count 4.52 m/uL (4.30-5.90)
[2023-05-19 11:29] LABS: Slide Review Reflex No
[2023-05-19 11:45] LABS: Albumin* 4.1 g/dL (3.3-5.0); Chloride* 104 mmol/L (96-114)
[2023-05-19 11:46] LABS: Potassium* 4.3 mmol/L (3.6-5.1); Sodium* 135 mmol/L (135-149)
[2023-05-19 11:48] LABS: Alkaline Phosphatase* 109 U/L (40-150); Anion Gap 11 mEq/L (7-15); Aspartate Amino Transferase* 37 U/L (12-35); Bilirubin Total* 0.5 mg/dL (0.1-1.5); Blood Urea Nitrogen* 31 mg/dL (7-30); Carbon Dioxide* 20 mmol/L (20-32); Estimated Glomerular Filt Rate 81 ml/min; Total Protein* 6.8 g/dL (6.0-8.3)
[2023-05-19 11:49] LABS: Alanine Aminotransferase* 45 U/L (4-50); Calcium* 9.4 mg/dL (8.4-10.6); Glucose* 111 mg/dL (60-115)
--- NOTE | 2023-05-19 13:05 | PC.NURSE ---
Pt present at [facility] for labs and evaluation for symptom management. Pt reports feeling really crummy starting on afternoon after his first chemo on Thursday last week. Librado notes diarrhea ~3x per day, last loose stool was Thursday AM. He also reports feeling dizzy when standing up after bending over at work. He had to leave work early , Thursday, and Thursday. Pt also reports extreme fatigue. He is unable to do much and it's hard to even walk. On Thursday, pt noted an aura-like [place] around his field of vision which resolved on its own. Librado has very low appetite but has found that eating small frequent meals has been helpful. He is not craving any foods that he usually does but has found a good variety of foods that he can eat. No change in weight. Overall Librado is feeling better today. His labs were done, all expected values noted, all others within normal limits. RN answered some of Librado's questions. Discussed case with ISELA Jaramillo and she answered all remaining questions that this RN couldn't. Pt was given hand outs on managing diarrhea. Pt was instructed to check his BP at home prior to taking Lisinopril when he's feeling poorly/having diarrhea/dehydrated. Pt understands and will call should he experience these symptoms again. Librado also asked this RN about changing his chemo day to have his bad days over the weekend. Pt brought [facility] paperwork which this RN will complete. Librado would like to be off work the rest of this week. 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 Support and listening provided.
[2023-06-02] VITALS (7 sets, daily range): BP systolic 161–192; BP diastolic 74–92; PULSE 69–83; RESP 22; O2SAT 90–94
[2023-06-02 09:12] LABS: Basophils Absolute Auto 0.11 K/uL (0.00-0.30); Eosinophils Absolute Auto 0.17 K/uL (0.00-0.50); Eosinophils Percent Auto 1.6 % (0.0-7.0); Hematocrit 36.9 % (37.0-53.0); Hemoglobin* 12.2 gm/dL (13.5-17.5); Immature Granulocytes Abs Auto 0.09 K/uL (0.00-0.30); Immature Granulocytes Pct Auto 0.8 %; Lymphocytes Percent Auto 14.5 % (20-44); Mean Corpuscular HGB Conc 33 gm/dL (32-36); Mean Corpuscular Hemoglobin 30 pg (26-34); Mean Corpuscular Volume 89 fL (80-100); Monocytes Percent Auto 9.1 % (0.0-11.0); Platelet Count* 495 K/uL (140-440); RDW Coefficient of Variation % 15.3 % (11.5-15.5); Red Blood Count 4.13 m/uL (4.30-5.90); White Blood Count* 10.84 K/uL (4.50-11.00)
[2023-06-02 09:16] LABS: Slide Review Reflex No
[2023-06-02 09:28] LABS: Chloride* 105 mmol/L (96-114)
[2023-06-02 09:29] LABS: Potassium* 4.5 mmol/L (3.6-5.1); Sodium* 136 mmol/L (135-149)
[2023-06-02 09:31] LABS: Bilirubin Total* 0.4 mg/dL (0.1-1.5); Creatinine* 0.9 mg/dL (0.5-1.5); Estimated Glomerular Filt Rate 92 ml/min
[2023-06-02 09:32] LABS: Alanine Aminotransferase* 24 U/L (4-50); Alkaline Phosphatase* 155 U/L (40-150); Anion Gap 7 mEq/L (7-15); Aspartate Amino Transferase* 22 U/L (12-35); Blood Urea Nitrogen* 16 mg/dL (7-30); Calcium* 9.7 mg/dL (8.4-10.6); Carbon Dioxide* 24 mmol/L (20-32); Glucose* 95 mg/dL (60-115); Total Protein* 7.1 g/dL (6.0-8.3)
[2023-06-02] MEDS: SODIUM CHLORIDE 0.9 % (FLUSH) 10 ML SYRINGE IVF ×3 (10:00→15:20)
[2023-06-02] MEDS: DURVALUMAB 1,500 MG, TUBING PRIMARY 1 EACH, In-line 0.2 micron filter set 1 EACH in 0.9... 280 MG IVPB (11:10)
[2023-06-02] MEDS: dexAMETHasone 4 MG TABLET 12 MG PO (11:14)
[2023-06-02] MEDS: PALONOSETRON 0.25 MG/5 ML inj IV (12:14)
[2023-06-02] MEDS: FOSAPREPITANT 150 MG inj 150 MG in 0.9 % SODIUM CHLORIDE 250 ml 250 ML 510 MG IVPB (12:14)
[2023-06-02] MEDS: 0.9 % SODIUM CHLORIDE 250 ml IV (12:15)
[2023-06-02] MEDS: [UNRECOGNIZED DRUG - OTHER] IV (12:55)
[2023-06-02] MEDS: PEMETREXED IV (12:55)
[2023-06-02] MEDS: TUBING SECONDARY IV (12:55)
[2023-06-02] MEDS: HEPARIN 500 UNIT/5 ML SYRINGE IVF ×2 (13:51→15:20)
[2023-06-02] MEDS: 0.9 % SODIUM CHLORIDE 1000 ml 1,000 ML IV (14:15)
[2023-06-02] MEDS: diphenhydrAMINE 50 MG/ML inj IVP (14:18)
[2023-06-02] MEDS: HYDROCORTISONE SOD SUCCINATE 50 MG/ML inj 100 MG IVP (14:22)
[2023-06-02] MEDS: FAMOTIDINE 10 MG/ML inj 20 MG IVP (14:25)
--- NOTE | 2023-06-02 15:02 | PC.NURSE ---
Pt discharged after chemo regimen completed. Librado later returned to [facility] at about 1412 with c/o feeling extremely flushed, itchy, and that his skin was burning up. Pt brought to a room and hypersensitivity reaction protocol initiated per the direction of Lori Mohr APRN. Port reaccessed, NS started wide open, VS taken (see flowsheet) and rescue medications given (see MAR). Pt began feeling better and flushing improved after about 10-15 minutes. Supportive care offered. Pt's partner present. See Lori's note for full details.
[2023-06-03 02:20] LABS: Magnesium* 2.3 mg/dL (1.5-2.6)
[2023-06-03] MEDS: PEGFILGRASTIM-JMDB (Fulphila) 6 MG/0.6 ML SUBCUT (14:16)
--- NOTE | 2023-06-03 15:08 | ONC.NURNOTE ---
Pt returned to clinic today for Fulphila shot. He states he is feeling well; no return of redness or itching or other s/s reaction from Carboplatin yesterday. Pt sees provider prior to next treatment to discuss how to proceed with chemo.
[2023-06-23 11:38] LABS: Basophils Absolute Auto 0.11 K/uL (0.00-0.30); Eosinophils Absolute Auto 0.28 K/uL (0.00-0.50); Eosinophils Percent Auto 2.6 % (0.0-7.0); Hematocrit 31.8 % (37.0-53.0); Hemoglobin* 10.4 gm/dL (13.5-17.5); Immature Granulocytes Abs Auto 0.07 K/uL (0.00-0.30); Immature Granulocytes Pct Auto 0.7 %; Lymphocytes Percent Auto 13.3 % (20-44); Mean Corpuscular HGB Conc 33 gm/dL (32-36); Mean Corpuscular Hemoglobin 30 pg (26-34); Mean Corpuscular Volume 91 fL (80-100); Monocytes Percent Auto 11.4 % (0.0-11.0); Neutrophils Absolute Auto 7.63 K/uL (1.7-7.0); Platelet Count* 367 K/uL (140-440); RDW Coefficient of Variation % 16.2 % (11.5-15.5); Red Blood Count 3.51 m/uL (4.30-5.90); White Blood Count* 10.75 K/uL (4.50-11.00)
[2023-06-23 11:42] LABS: Slide Review Reflex No
--- NOTE | 2023-06-23 12:01 | ONC.NURNOTE ---
Addendum entered by Michelle Manning RN 06/23/23 13:49: Dr. Duval from [facility] called office to state that nothing was noted on the right side of his jaw, but significant periodontal disease was noted. He recommends that patient have scaling and root planing done. This is otherwise known as deep cleaning. Patient was given the number for recommended zinc plate cutter. Patient has visit with oncologist tomorrow to determine timing of chemo and this cleaning, along with other side effects. Original Note: Patient here for labs for chemotherapy tomorrow. Patient discussed the following issues. Right jaw pain, slightly improved from last week. He was last seen by a dentist about one month prior and needed work on this area, but it was delayed due to chemotherapy. Patient was encouraged to reach out to dentist to see if he can make an appointment to have this looked at. He was told to tell dentist that he is due for chemotherapy tomorrow and oncologist is available via phone today. Left shoulder pain has increased back to how it felt at diagnosis. Extreme fatigue, which is new to patient. He can usually make it through a day of work, but has been unable to as of late.
[2023-06-23 12:06] LABS: Albumin* 3.9 g/dL (3.3-5.0); Chloride* 102 mmol/L (96-114); Potassium* 4.7 mmol/L (3.6-5.1); Sodium* 133 mmol/L (135-149)
[2023-06-23 12:09] LABS: Alanine Aminotransferase* 18 U/L (4-50); Alkaline Phosphatase* 137 U/L (40-150); Anion Gap 7 mEq/L (7-15); Aspartate Amino Transferase* 20 U/L (12-35); Bilirubin Total* 0.4 mg/dL (0.1-1.5); Blood Urea Nitrogen* 23 mg/dL (7-30); Carbon Dioxide* 24 mmol/L (20-32); Estimated Glomerular Filt Rate 81 ml/min; Glucose* 111 mg/dL (60-115); Total Protein* 7.3 g/dL (6.0-8.3)
[2023-06-23 12:10] LABS: Calcium* 9.3 mg/dL (8.4-10.6)
[2023-06-24] VITALS (9 sets, daily range): BP systolic 134–162; BP diastolic 69–78; PULSE 69–81; RESP 18–24; TEMP 36.6–36.9; O2SAT 92–97
[2023-06-24] MEDS: DURVALUMAB 1,500 MG, TUBING PRIMARY 1 EACH, In-line 0.2 micron filter set 1 EACH in 0.9... 280 MG IVPB (10:36)
[2023-06-24] MEDS: PALONOSETRON 0.25 MG/5 ML inj IV (11:49)
[2023-06-24] MEDS: FAMOTIDINE 10 MG/ML inj 20 MG IVP (11:49)
[2023-06-24] MEDS: dexAMETHasone 10 MG in 0.9 % SODIUM CHLORIDE 100 ml 100 ML 404 MG IVPB (11:55)
[2023-06-24] MEDS: FOSAPREPITANT 150 MG inj 150 MG in 0.9 % SODIUM CHLORIDE 250 ml 250 ML 510 MG IVPB (12:15)
[2023-06-24] MEDS: [UNRECOGNIZED DRUG - OTHER] IV (12:53)
[2023-06-24] MEDS: PEMETREXED IV (12:53)
[2023-06-24] MEDS: TUBING SECONDARY IV (12:53)
[2023-06-24] MEDS: diphenhydrAMINE 50 MG/ML inj IVP (13:33)
[2023-06-24] MEDS: ALBUTEROL INHALER 2 PUFF IH (13:34)
[2023-06-24] MEDS: dexAMETHasone 12 MG in 0.9 % SODIUM CHLORIDE 100 ml 100 ML 404.8 MG IVPB (14:00)
--- NOTE | 2023-06-24 15:46 | ONC.NURNOTE ---
Pt began Carboplatin infusion at 1310. Change in premed with this infusion is addition of 20 mg IV Pepcid and change from 12 mg Dexamethasone PO to 10 mg IV Dexamethasone. Also planned to give 12 mg IV Dexamethasone at completion of Carbo infusion.? At 1316, six minutes into Carbo infusion pt noted tingly hands and feet, saying he can have baseline neuropathy at times, so may not be a change from normal At 1327, 17 min into infusion, pt reports his face feeling hot. His face was significantly reddened; he c/o itchy hands. Stopped Carboplatin. Lori Lopes APRN in room to assess. VSS.? At 1330 pt is coughing frequently, tight and wheezy. Some difficulty speaking. Benadryl IV 50mg given at 1333. Per Lori, 1 puff Albuterol inhaler given at 1334 and 2nd?puff at 1337. VSS.? At 1341, pt up to BR with 2 assist, citing weak legs/knees and feeling very shaky/woozy. Pt had urge to have BM/abdominal cramping, but only passed gas and urinated. 1 episode of nausea in BR self-resolving. At 1353, pt back to chair with wheelchair and 2 assist. C/o chills, visibly shaking and having slight trouble swallowing.? At 1400, Dex 12 mg IV given x 1. Pt c/o very itchy scalp and hands and is scratching persistently. Pt continues to have chills. At 1420, pt continues to have red face with white, swollen eyes. He continues to have alternating episodes of cold with chills then hot with some itching, every 1 min. Continues to have tingling in bilat upper arms.? At 1441, continues to have bilat upper arms itching and feeling cold.? At 1454, pt's redness in face and arms resolving. He continues to improve. At 1503, pt up to BR walking independently. Notes he still has some weakness in his knees but says he feels steady.? At 1520, Lori in to see pt. He is feeling well. VSS. Plan to dc to home with his life partner Renetta if continues to feel well in 15 min.?? At 1540, pt feeling well. VSS. DC'd home with Renetta.
[2023-06-25 14:06] VITALS: BP 152/68; PULSE 86; RESP 16; TEMP 36.5; O2SAT 91
[2023-06-25] MEDS: PEGFILGRASTIM-JMDB (Fulphila) 6 MG/0.6 ML SUBCUT (14:22)
--- NOTE | 2023-07-09 11:42 | URNOTE ---
Addendum entered by Gladis Luo RN 07/09/23 13:15: Per [employer], Prior auth is not required for Olanzapine. EOC #[id number] Original Note: Prior auth is not required for Cisplatin (J9060). [employer] Record #[id number] Prior auth is required for Olazapine (J2356) and is pending on Availity.
--- NOTE | 2023-07-10 11:41 | URNOTE ---
Brien (J9173) has been approved, 07/09/2023-01/08/2024. [facility] #[id number]
[2023-07-14 14:34] LABS: Basophils Absolute Auto 0.08 K/uL (0.00-0.30); Basophils Percent Auto 0.8 % (0.0-3.0); Eosinophils Absolute Auto 0.35 K/uL (0.00-0.50); Eosinophils Percent Auto 3.7 % (0.0-7.0); Hematocrit 28.9 % (37.0-53.0); Hemoglobin* 9.4 gm/dL (13.5-17.5); Immature Granulocytes Abs Auto 0.13 K/uL (0.00-0.30); Immature Granulocytes Pct Auto 1.4 %; Lymphocytes Percent Auto 14.8 % (20-44); Mean Corpuscular HGB Conc 33 gm/dL (32-36); Mean Corpuscular Hemoglobin 30 pg (26-34); Mean Corpuscular Volume 93 fL (80-100); Monocytes Percent Auto 9.7 % (0.0-11.0); Neutrophils Absolute Auto 6.64 K/uL (1.7-7.0); Neutrophils Percent Auto 69.6 % (42.0-72.0); Platelet Count* 287 K/uL (140-440); RDW Coefficient of Variation % 18.7 % (11.5-15.5); White Blood Count* 9.53 K/uL (4.50-11.00)
[2023-07-14 14:41] LABS: Slide Review Reflex No
[2023-07-14 15:21] LABS: Chloride* 103 mmol/L (96-114)
[2023-07-14 15:22] LABS: Albumin* 3.8 g/dL (3.3-5.0); Potassium* 4.4 mmol/L (3.6-5.1); Sodium* 134 mmol/L (135-149)
[2023-07-14 15:24] LABS: Creatinine* 1.3 mg/dL (0.5-1.5); Est. Creatinine Clearance* 56.59; Estimated Glomerular Filt Rate 59 ml/min
[2023-07-14 15:25] LABS: Alanine Aminotransferase* 22 U/L (4-50); Alkaline Phosphatase* 137 U/L (40-150); Anion Gap 7 mEq/L (7-15); Aspartate Amino Transferase* 22 U/L (12-35); Bilirubin Total* 0.4 mg/dL (0.1-1.5); Blood Urea Nitrogen* 28 mg/dL (7-30); Calcium* 9.4 mg/dL (8.4-10.6); Carbon Dioxide* 24 mmol/L (20-32); Glucose* 104 mg/dL (60-115); Total Protein* 6.9 g/dL (6.0-8.3)
[2023-07-15 08:30] VITALS: BP 116/64; PULSE 99; RESP 14; TEMP 36.5; O2SAT 92
[2023-07-15] MEDS: MAGNESIUM SULFATE 2 GM, POTASSIUM CHLORIDE 10 MEQ in 0.9 % SODIUM CHLORIDE 1000 ml 1,00... IV (09:06)
[2023-07-15] MEDS: DURVALUMAB 1,500 MG, TUBING PRIMARY 1 EACH, In-line 0.2 micron filter set 1 EACH in 0.9... 280 MG IVPB (10:03)
[2023-07-15] MEDS: FAMOTIDINE 10 MG/ML inj 20 MG IVP (11:08)
[2023-07-15] MEDS: CYANOCOBALAMIN 1,000 MCG/ML inj 1000 MCG IM (11:08)
[2023-07-15] MEDS: OLANZapine 5 MG TAB.RAPDIS PO (11:08)
[2023-07-15] MEDS: dexAMETHasone 20 MG in 0.9 % SODIUM CHLORIDE 100 ml 100 ML 408 MG IVPB (11:09)
[2023-07-15] MEDS: PALONOSETRON 0.25 MG/5 ML inj IV (11:09)
[2023-07-15] MEDS: 0.9 % SODIUM CHLORIDE 250 ml IV ×2 (11:19→12:22)
[2023-07-15] MEDS: HEPARIN 500 UNIT/5 ML SYRINGE IVF ×2 (11:20→12:23)
[2023-07-15] MEDS: SODIUM CHLORIDE 0.9 % (FLUSH) 10 ML SYRINGE IVF (11:20)
[2023-07-15] MEDS: FOSAPREPITANT 150 MG inj 150 MG in 0.9 % SODIUM CHLORIDE 250 ml 250 ML 510 MG IVPB (11:38)
[2023-07-15] MEDS: [UNRECOGNIZED DRUG - OTHER] IV (12:18)
[2023-07-15] MEDS: TUBING SECONDARY IV (12:18)
[2023-07-15] MEDS: PEMETREXED IV (12:18)
--- NOTE | 2023-07-15 15:33 | ONC.NURNOTE ---
LS clear, Heartrate reg s1s2 before treatment and at end of treatment. Elevated TSH. pt taking his synthroid. Dr. Dudley aware. Ok to treat. dexamethasone ordered 10mg x2 IV. Per Dr. Dudley give Dex 20mg IV today due to pts history of nausea. New Cisplatin given today. alden well.
[2023-07-16 14:19] VITALS: BP 137/65; PULSE 79; RESP 16; TEMP 36.2; O2SAT 93
[2023-07-16] MEDS: PEGFILGRASTIM-JMDB (Fulphila) 6 MG/0.6 ML SUBCUT (14:19)
[2023-08-04 13:53] LABS: Basophils Absolute Auto 0.12 K/uL (0.00-0.30); Basophils Percent Auto 1.3 % (0.0-3.0); Eosinophils Absolute Auto 0.52 K/uL (0.00-0.50); Eosinophils Percent Auto 5.7 % (0.0-7.0); Hematocrit 32.4 % (37.0-53.0); Hemoglobin* 10.7 gm/dL (13.5-17.5); Immature Granulocytes Abs Auto 0.04 K/uL (0.00-0.30); Immature Granulocytes Pct Auto 0.4 %; Lymphocytes Percent Auto 18.8 % (20-44); Mean Corpuscular HGB Conc 33 gm/dL (32-36); Mean Corpuscular Hemoglobin 32 pg (26-34); Mean Corpuscular Volume 96 fL (80-100); Monocytes Percent Auto 8.6 % (0.0-11.0); Neutrophils Absolute Auto 5.96 K/uL (1.7-7.0); Neutrophils Percent Auto 65.2 % (42.0-72.0); Platelet Count* 297 K/uL (140-440); RDW Coefficient of Variation % 22.3 % (11.5-15.5); Red Blood Count 3.37 m/uL (4.30-5.90); White Blood Count* 9.15 K/uL (4.50-11.00)
[2023-08-04 14:07] LABS: Slide Review Reflex No
[2023-08-04 14:14] LABS: Albumin* 4.5 g/dL (3.3-5.0); Chloride* 107 mmol/L (96-114)
[2023-08-04 14:15] LABS: Potassium* 4.6 mmol/L (3.6-5.1); Sodium* 134 mmol/L (135-149)
[2023-08-04 14:17] LABS: Alkaline Phosphatase* 130 U/L (40-150); Anion Gap 7 mEq/L (7-15); Aspartate Amino Transferase* 21 U/L (12-35); Bilirubin Total* 0.7 mg/dL (0.1-1.5); Blood Urea Nitrogen* 23 mg/dL (7-30); Carbon Dioxide* 20 mmol/L (20-32); Creatinine* 1.1 mg/dL (0.5-1.5); Est. Creatinine Clearance* 67.53; Estimated Glomerular Filt Rate 73 ml/min; Total Protein* 7.5 g/dL (6.0-8.3)
[2023-08-04 14:18] LABS: Alanine Aminotransferase* 18 U/L (4-50); Calcium* 9.7 mg/dL (8.4-10.6); Glucose* 92 mg/dL (60-115)
[2023-08-04 15:17] LABS: Magnesium* 2.3 mg/dL (1.5-2.6)
[2023-08-05 08:31] VITALS: BP 118/73; PULSE 88; RESP 16; TEMP 35.9; O2SAT 96
[2023-08-05] MEDS: DURVALUMAB 1,500 MG, TUBING PRIMARY 1 EACH, In-line 0.2 micron filter set 1 EACH in 0.9... 280 MG IVPB (09:13)
[2023-08-05] MEDS: dexAMETHasone 12 MG in 0.9 % SODIUM CHLORIDE 100 ml 100 ML 400 MG IVPB (10:21)
[2023-08-05] MEDS: OLANZapine 5 MG TAB.RAPDIS PO (10:41)
[2023-08-05] MEDS: FAMOTIDINE 10 MG/ML inj 20 MG IVP (10:43)
[2023-08-05] MEDS: FOSAPREPITANT 150 MG inj 150 MG in 0.9 % SODIUM CHLORIDE 250 ml 250 ML 800 MG IVPB (10:45)
[2023-08-05] MEDS: PALONOSETRON 0.25 MG/5 ML inj IV (11:10)
[2023-08-05] MEDS: TUBING SECONDARY IV (11:17)
[2023-08-05] MEDS: [UNRECOGNIZED DRUG - OTHER] IV (11:17)
[2023-08-05] MEDS: PEMETREXED IV (11:17)
[2023-08-05] MEDS: MAGNESIUM SULFATE 2 GM, POTASSIUM CHLORIDE 10 MEQ in 0.9 % SODIUM CHLORIDE 1000 ml 1,00... IV (11:34)
[2023-08-05] MEDS: SODIUM CHLORIDE 0.9 % (FLUSH) 10 ML SYRINGE IVF (16:10)
[2023-08-05] MEDS: HEPARIN 500 UNIT/5 ML SYRINGE IVF (16:10)
[2023-08-06 15:30] VITALS: BP 165/78; PULSE 72; RESP 14; TEMP 36.5; O2SAT 95
[2023-08-06] MEDS: PEGFILGRASTIM-JMDB (Fulphila) 6 MG/0.6 ML SUBCUT (15:58)
--- NOTE | 2023-08-21 10:19 | PC.NURSE ---
Librado called today to inquire about whether or not he will need a milk truck driver for chemo next week. Librado also needs a Tramadol refill (takes 1 tablet per day, ran out yesterday). RN reviewed treatment orders and discussed with Lori Mohr APRN. Orders updated with absence of Cisplat (and previously Carbo). Librado contacted and updated that he will NOT need a milk truck driver and that ISELA Sandoval would call in for Tramadol until pt sees Dr. Dudley next week. Reviewed appointments with Librado.
--- NOTE | 2023-08-21 11:39 | URNOTE ---
Request received for authorization for?the following: Pemetrexed (J9305) approved Ref#[id number], date range: 09/10/2023 to 03/15/2024. (Per previous approval date range 05/06/23 to 09/09/23). Fosaprepitant (J1453) No PA is required, Ref#[id number]. Aloxi (J2469) approved Ref#[id number], date range: 09/10/2023 to 03/15/2024.(Per previous approval date range 05/06/23 to 09/09/23). Udenyca?(Q5111) approved Ref#[id number], date range: 08/26/2023 to 02/22/2024.
[2023-08-25 10:40] LABS: Basophils Absolute Auto 0.07 K/uL (0.00-0.30); Basophils Percent Auto 0.7 % (0.0-3.0); Eosinophils Absolute Auto 0.33 K/uL (0.00-0.50); Eosinophils Percent Auto 3.5 % (0.0-7.0); Hematocrit 31.8 % (37.0-53.0); Hemoglobin* 10.2 gm/dL (13.5-17.5); Immature Granulocytes Abs Auto 0.06 K/uL (0.00-0.30); Immature Granulocytes Pct Auto 0.6 %; Lymphocytes Percent Auto 16.5 % (20-44); Mean Corpuscular HGB Conc 32 gm/dL (32-36); Mean Corpuscular Hemoglobin 32 pg (26-34); Mean Corpuscular Volume 101 fL (80-100); Monocytes Percent Auto 12.2 % (0.0-11.0); Neutrophils Absolute Auto 6.27 K/uL (1.7-7.0); Neutrophils Percent Auto 66.5 % (42.0-72.0); Platelet Count* 235 K/uL (140-440); RDW Coefficient of Variation % 22.8 % (11.5-15.5); Red Blood Count 3.15 m/uL (4.30-5.90); White Blood Count* 9.44 K/uL (4.50-11.00)
[2023-08-25 10:47] LABS: Slide Review Reflex No
[2023-08-25 11:05] LABS: Albumin* 4.3 g/dL (3.3-5.0); Chloride* 100 mmol/L (96-114); Sodium* 132 mmol/L (135-149)
[2023-08-25 11:06] LABS: Potassium* 4.8 mmol/L (3.6-5.1)
[2023-08-25 11:08] LABS: Alanine Aminotransferase* 18 U/L (4-50); Alkaline Phosphatase* 131 U/L (40-150); Anion Gap 7 mEq/L (7-15); Aspartate Amino Transferase* 23 U/L (12-35); Bilirubin Total* 0.6 mg/dL (0.1-1.5); Blood Urea Nitrogen* 27 mg/dL (7-30); Carbon Dioxide* 25 mmol/L (20-32); Creatinine* 1.5 mg/dL (0.5-1.5); Est. Creatinine Clearance* 51.01; Estimated Glomerular Filt Rate 50 ml/min; Glucose* 96 mg/dL (60-115); Total Protein* 6.9 g/dL (6.0-8.3)
[2023-08-25 11:09] LABS: Calcium* 9.4 mg/dL (8.4-10.6)
--- NOTE | 2023-08-25 11:21 | ONC.NURNOTE ---
Patient arrives stating he has his port still accessed from [facility]. When asked when he was there he said the 11 of August. When examining the port, the needle resembles the same as [facility] uses and last access was for PET scan here Port de-accessed and and site is clear of any Signs or symptoms of infection and patient with no fever. Did educate patient on the importance of needle not staying in due to risk of infection and signs and symptoms to watch for that could come up
[2023-08-25 11:48] LABS: Magnesium* 2.3 mg/dL (1.5-2.6)
[2023-08-26] MEDS: SODIUM CHLORIDE 0.9 % (FLUSH) 10 ML SYRINGE IVF ×2 (09:29→11:33)
[2023-08-26] MEDS: 0.9 % SODIUM CHLORIDE 250 ml IV (09:29)
[2023-08-26] MEDS: PALONOSETRON 0.25 MG/5 ML inj IV (09:46)
[2023-08-26] MEDS: dexAMETHasone 10 MG in 0.9 % SODIUM CHLORIDE 100 ml 100 ML 404 MG IVPB (09:49)
[2023-08-26] MEDS: DURVALUMAB 1,500 MG, TUBING PRIMARY 1 EACH, In-line 0.2 micron filter set 1 EACH in 0.9... 280 MG IVPB (10:10)
[2023-08-26] MEDS: TUBING SECONDARY IV (11:17)
[2023-08-26] MEDS: PEMETREXED IV (11:17)
[2023-08-26] MEDS: [UNRECOGNIZED DRUG - OTHER] IV (11:17)
[2023-08-26] MEDS: HEPARIN 500 UNIT/5 ML SYRINGE IVF (11:33)
[2023-09-14 09:39] LABS: Basophils Absolute Auto 0.04 K/uL (0.00-0.30); Basophils Percent Auto 0.6 % (0.0-3.0); Eosinophils Absolute Auto 0.36 K/uL (0.00-0.50); Eosinophils Percent Auto 5.2 % (0.0-7.0); Hematocrit 27.5 % (37.0-53.0); Hemoglobin* 8.9 gm/dL (13.5-17.5); Immature Granulocytes Abs Auto 0.01 K/uL (0.00-0.30); Immature Granulocytes Pct Auto 0.1 %; Mean Corpuscular HGB Conc 32 gm/dL (32-36); Mean Corpuscular Hemoglobin 34 pg (26-34); Mean Corpuscular Volume 105 fL (80-100); Monocytes Percent Auto 10.4 % (0.0-11.0); Neutrophils Absolute Auto 4.57 K/uL (1.7-7.0); Neutrophils Percent Auto 65.7 % (42.0-72.0); Platelet Count* 253 K/uL (140-440); RDW Coefficient of Variation % 19.7 % (11.5-15.5); Red Blood Count 2.61 m/uL (4.30-5.90); White Blood Count* 6.95 K/uL (4.50-11.00)
[2023-09-14 09:40] LABS: Slide Review Reflex No
[2023-09-14 09:51] LABS: Albumin* 4.1 g/dL (3.3-5.0); Chloride* 105 mmol/L (96-114)
[2023-09-14 09:52] LABS: Potassium* 4.6 mmol/L (3.6-5.1); Sodium* 134 mmol/L (135-149)
[2023-09-14 09:54] LABS: Alkaline Phosphatase* 122 U/L (40-150); Anion Gap 6 mEq/L (7-15); Aspartate Amino Transferase* 26 U/L (12-35); Bilirubin Total* 0.4 mg/dL (0.1-1.5); Blood Urea Nitrogen* 27 mg/dL (7-30); Carbon Dioxide* 23 mmol/L (20-32); Creatinine* 1.3 mg/dL (0.5-1.5); Est. Creatinine Clearance* 55.07; Estimated Glomerular Filt Rate 59 ml/min; Magnesium* 2.3 mg/dL (1.5-2.6); Total Protein* 6.6 g/dL (6.0-8.3)
[2023-09-14 09:55] LABS: Alanine Aminotransferase* 23 U/L (4-50); Calcium* 9.4 mg/dL (8.4-10.6); Glucose* 107 mg/dL (60-115)
[2023-09-14] MEDS: SODIUM CHLORIDE 0.9 % (FLUSH) 10 ML SYRINGE IVF (10:26)
[2023-09-14] MEDS: HEPARIN 500 UNIT/5 ML SYRINGE IVF (10:27)
[2023-09-15 08:18] VITALS: BP 155/79; PULSE 86; RESP 14; TEMP 36.6; O2SAT 95
[2023-09-15] MEDS: dexAMETHasone 10 MG in 0.9 % SODIUM CHLORIDE 100 ml 100 ML 404 MG IVPB (09:04)
[2023-09-15] MEDS: PALONOSETRON 0.25 MG/5 ML inj IV (09:04)
[2023-09-15] MEDS: 0.9 % SODIUM CHLORIDE 250 ml IV (09:05)
[2023-09-15] MEDS: DURVALUMAB 1,500 MG, TUBING PRIMARY 1 EACH, In-line 0.2 micron filter set 1 EACH in 0.9... 280 MG IVPB (09:37)
[2023-09-15] MEDS: TUBING SECONDARY IV (10:42)
[2023-09-15] MEDS: PEMETREXED IV (10:42)
[2023-09-15] MEDS: [UNRECOGNIZED DRUG - OTHER] IV (10:42)
[2023-09-15] MEDS: CYANOCOBALAMIN 1,000 MCG/ML inj 1000 MCG IM (11:04)
[2023-09-15] MEDS: SODIUM CHLORIDE 0.9 % (FLUSH) 10 ML SYRINGE IVF (11:04)
[2023-09-15] MEDS: HEPARIN 500 UNIT/5 ML SYRINGE IVF (11:04)
--- NOTE | 2023-09-18 09:17 | ONC.NURNOTE ---
Received refill request for inhaler and famotidine. LMOM for patient stating that these would be addressed next week when a provider is in office.
--- NOTE | 2023-09-21 15:00 | PC.NURSE ---
Pt called today to report that he was in the ER at [facility] yesterday after calling 911 and taking an ambulance. Pt reports that he has not been able to eat much of anything since his treatment on 09/15/2023. He was taking Compazine 2-3 times per day and started using Zofran on and Thursday without much relief. He had initially avoided Zofran due to existing constipation. Pt states that on Thursday morning he thought he felt ok enough to go to the gym but on the way there he developed abd cramping, chills, and headed home. He then proceeded to have significant nausea/vomiting/diarrhea. He was dizzy and lightheaded and was unable to stand. He called 911 and was brought to [facility] ER. See those notes for details. Pt went home and was able to keep down chicken broth. Today he tolerated apple juice and watermelon. Librado calls to ask for help with how to take his nausea medications so he can eat something. RN discussed the above with Lori Mohr APRN. Librado will come in to [facility] tomorrow to be evaluated by Lori. When RN called back to discuss with Librado, RN inquired about any diarrhea today. Pt states none today. Librado took his BP at home which was 115/60. Librado picked up some bananas and applesauce. He thinks he can keep down liquids, broth, and apple juice between now and tomorrow. We discussed using Zofran three times daily and using Compazine twice daily between Zofran doses as needed. RN also advised that Librado get Miralax to use if Zofran causes constipation. Pt and Renetta voiced understanding. Pt will come in tomorrow.
[2023-09-22 11:04] LABS: Hemoglobin* 8.5 gm/dL (13.5-17.5); Mean Corpuscular HGB Conc 33 gm/dL (32-36); Mean Corpuscular Hemoglobin 34 pg (26-34); Mean Corpuscular Volume 105 fL (80-100); Platelet Count* 138 K/uL (140-440); RDW Coefficient of Variation % 17.8 % (11.5-15.5); Red Blood Count 2.47 m/uL (4.30-5.90); White Blood Count* 2.84 K/uL (4.50-11.00)
[2023-09-22 11:12] LABS: Albumin* 3.8 g/dL (3.3-5.0); Chloride* 102 mmol/L (96-114)
[2023-09-22 11:13] LABS: Potassium* 4.3 mmol/L (3.6-5.1); Sodium* 133 mmol/L (135-149)
[2023-09-22 11:14] LABS: Slide Review Reflex Req Man Differential
[2023-09-22 11:15] LABS: Alanine Aminotransferase* 23 U/L (4-50); Alkaline Phosphatase* 90 U/L (40-150); Anion Gap 10 mEq/L (7-15); Aspartate Amino Transferase* 28 U/L (12-35); Bilirubin Total* 0.2 mg/dL (0.1-1.5); Blood Urea Nitrogen* 25 mg/dL (7-30); Carbon Dioxide* 21 mmol/L (20-32); Creatinine* 1.3 mg/dL (0.5-1.5); Est. Creatinine Clearance* 53.18; Estimated Glomerular Filt Rate 59 ml/min; Total Cells Counted 100; Total Protein* 6.1 g/dL (6.0-8.3)
[2023-09-22 11:16] LABS: Calcium* 9.6 mg/dL (8.4-10.6); Glucose* 109 mg/dL (60-115); Magnesium* 2.1 mg/dL (1.5-2.6)
[2023-09-22 11:43] LABS: Anisocytosis Moderate (Absent); Platelet Estimate Appears Adequate (Adequate)
[2023-09-22] MEDS: SODIUM CHLORIDE 0.9 % (FLUSH) 10 ML SYRINGE IVF (12:41)
[2023-09-22] MEDS: HEPARIN 500 UNIT/5 ML SYRINGE IVF (12:42)
--- NOTE | 2023-09-29 11:23 | PC.NURSE ---
Pt called today for two reasons. First, he needs refills on Zofran and gabapentin. Librado is totally out of Zofran and has about 4 gabapentin pills left. Secondly, he was recently at his PCP clinic for a pulsing sound in his ear. He was seen and evaluated by Dr. Gunter. recommended a carotid ultrasound which is scheduled for next week at [facility]. He wanted to make sure Dr. Dudley was aware. David FOSTER note printed and Dr. Dudley notified. Support offered.
[2023-10-19] MEDS: SODIUM CHLORIDE 0.9 % (FLUSH) 10 ML SYRINGE IVF (10:56)
[2023-10-19] MEDS: HEPARIN 500 UNIT/5 ML SYRINGE IVF (10:56)
[2023-10-19 11:09] LABS: Basophils Absolute Auto 0.09 K/uL (0.00-0.30); Basophils Percent Auto 0.8 % (0.0-3.0); Eosinophils Absolute Auto 0.45 K/uL (0.00-0.50); Eosinophils Percent Auto 4.1 % (0.0-7.0); Hematocrit 27.9 % (37.0-53.0); Hemoglobin* 8.5 gm/dL (13.5-17.5); Immature Granulocytes Abs Auto 0.05 K/uL (0.00-0.30); Immature Granulocytes Pct Auto 0.5 %; Lymphocytes Percent Auto 19.8 % (20-44); Mean Corpuscular HGB Conc 31 gm/dL (32-36); Mean Corpuscular Hemoglobin 33 pg (26-34); Mean Corpuscular Volume 109 fL (80-100); Monocytes Percent Auto 7.2 % (0.0-11.0); Neutrophils Absolute Auto 7.42 K/uL (1.7-7.0); Neutrophils Percent Auto 67.6 % (42.0-72.0); Platelet Count* 337 K/uL (140-440); RDW Coefficient of Variation % 17.8 % (11.5-15.5); Red Blood Count 2.56 m/uL (4.30-5.90); White Blood Count* 10.97 K/uL (4.50-11.00)
[2023-10-19 11:11] LABS: Slide Review Reflex No
[2023-10-19 11:24] LABS: Albumin* 3.9 g/dL (3.3-5.0); Chloride* 106 mmol/L (96-114)
[2023-10-19 11:25] LABS: Potassium* 4.8 mmol/L (3.6-5.1); Sodium* 136 mmol/L (135-149)
[2023-10-19 11:27] LABS: Alkaline Phosphatase* 92 U/L (40-150); Anion Gap 6 mEq/L (7-15); Aspartate Amino Transferase* 25 U/L (12-35); Bilirubin Total* 0.2 mg/dL (0.1-1.5); Blood Urea Nitrogen* 24 mg/dL (7-30); Carbon Dioxide* 24 mmol/L (20-32); Creatinine* 1.3 mg/dL (0.5-1.5); Est. Creatinine Clearance* 52.43; Estimated Glomerular Filt Rate 59 ml/min; Total Protein* 6.1 g/dL (6.0-8.3)
[2023-10-19 11:28] LABS: Alanine Aminotransferase* 33 U/L (4-50); Calcium* 9.6 mg/dL (8.4-10.6); Glucose* 92 mg/dL (60-115)
[2023-10-20] MEDS: DURVALUMAB 1,500 MG, TUBING PRIMARY 1 EACH, In-line 0.2 micron filter set 1 EACH in 0.9... 280 MG IVPB (10:02)
[2023-10-20] MEDS: SODIUM CHLORIDE 0.9 % (FLUSH) 10 ML SYRINGE IVF (10:40)
[2023-10-20] MEDS: 0.9 % SODIUM CHLORIDE 250 ml IV (10:40)
[2023-10-20] MEDS: dexAMETHasone 10 MG in 0.9 % SODIUM CHLORIDE 100 ml 100 ML 404 MG IVPB (11:09)
[2023-10-20] MEDS: PALONOSETRON 0.25 MG/5 ML inj IV (11:09)
[2023-10-20] MEDS: TUBING SECONDARY IV (11:41)
[2023-10-20] MEDS: [UNRECOGNIZED DRUG - OTHER] IV (11:41)
[2023-10-20] MEDS: PEMETREXED IV (11:41)
--- NOTE | 2023-10-27 11:09 | PC.NURSE ---
Addendum entered by Stefanie Lock RN 10/27/23 14:16: Called pt again this afternoon to check in. LM on pt's primary number to call [facility] and check in. Original Note: Called pt today to schedule next treatment. This was done. Pt went on to share that she has fallen 3 times in the last 5 days. He reports feeling dizzy and then his legs get weak and buckle. He is aware of it happening but cannot stop it from happening. Pt has a new blood clot in his right internal jugular vein throughout its course from the jugular bulb confluence at the skull base through the thorax. Pt is on Xarelto. Pt states that yesterdays fall resulted in him hitting his head on the wall and getting a facial laceration. Pt notes that twice he fell when going from outside to inside his home. He also notes that he is experimenting with his antiemetics. He usually takes Zofran TID and Compazine BID. He has been trying to take less of one or the other. RN discussed the above with Lori Mohr APRN and it was recommended that pt go to the ER to be fully evaluated given recent extensive clot. Called pt back and LM with these recommendations and expressing the importance. RN asked pt to call back to confirm he received this message.
--- NOTE | 2023-10-27 18:00 | ONC.NURNOTE ---
Update - weakness, dizziness, recent falls Mr. Palacios called after clinic close to update the nursing staff that he had just woken up from a nap and received messages from staff. He did not go to the ED to be evaluated as recommended. He feels rested and stronger after his nap. I called him again to see how he is feeling. He denies unilateral muscle weakness of arms or legs, vision changes, facial droop, lethargy or disorientation. His speech is fluent and answers are congruent and appropriate. He was urged again to be evaluated in the ED. His symptoms could be due to dehydration, anemia from chemotherapy or even infection. However, he is falling and on a blood thinner. Also, he has a VTE that could cause perfusion issues for his brain. That is why he is encouraged to be evaluated in ED versus in the [facility]. He states understanding. He would like to see how he does tonight. If the dizziness recurs he will go into the ED, otherwise he will go in the am.
[2023-10-29 12:35] LABS: Basophils Percent Auto 0.9 % (0.0-3.0); Eosinophils Percent Auto 7.8 % (0.0-7.0); Hematocrit 21.3 % (37.0-53.0); Immature Granulocytes Pct Auto 0.9 %; Lymphocytes Percent Auto 49.4 % (20-44); Mean Corpuscular HGB Conc 32 gm/dL (32-36); Mean Corpuscular Hemoglobin 34 pg (26-34); Mean Corpuscular Volume 105 fL (80-100); Monocytes Percent Auto 12.6 % (0.0-11.0); Neutrophils Percent Auto 28.4 % (42.0-72.0); Platelet Count* 115 K/uL (140-440); RDW Coefficient of Variation % 16.1 % (11.5-15.5); Red Blood Count 2.03 m/uL (4.30-5.90); White Blood Count* 2.31 K/uL (4.50-11.00)
[2023-10-29 12:38] LABS: Hemoglobin* 6.8 gm/dL (13.5-17.5); Slide Review Reflex Yes
[2023-10-29 12:39] LABS: Slide Review Acceptable Review (Acceptable)
[2023-10-29 13:04] LABS: Albumin* 3.9 g/dL (3.3-5.0); Chloride* 105 mmol/L (96-114)
[2023-10-29 13:05] LABS: Potassium* 4.5 mmol/L (3.6-5.1); Sodium* 135 mmol/L (135-149)
[2023-10-29 13:07] LABS: Alkaline Phosphatase* 83 U/L (40-150); Anion Gap 8 mEq/L (7-15); Aspartate Amino Transferase* 34 U/L (12-35); Bilirubin Total* 0.4 mg/dL (0.1-1.5); Blood Urea Nitrogen* 39 mg/dL (7-30); Carbon Dioxide* 22 mmol/L (20-32); Creatinine* 1.5 mg/dL (0.5-1.5); Est. Creatinine Clearance* 45.09; Estimated Glomerular Filt Rate 50 ml/min; Total Protein* 6.4 g/dL (6.0-8.3)
[2023-10-29 13:08] LABS: Alanine Aminotransferase* 35 U/L (4-50); Calcium* 9.7 mg/dL (8.4-10.6); Glucose* 109 mg/dL (60-115)
[2023-10-30 23:21] LABS: Cortisol, Serum 17.2 ug/dL
--- NOTE | 2023-11-03 08:34 | ONC.NURNOTE ---
Patient called and stated he couldn't come in until later due to numbness and weakness in legs (I'm so shaky, I can't drive). He stated he is waiting for his SO to get home around [phone] and then he will come in. Let him know that is late to be worked up and he may need to go to ED. Also let him know he could call for ambulance to be brought in if he is feeling weak/numbness or tingling/SOB/Chest pain etc. Patient states he feels fine but just not able to drive due to shakiness/weakness
[2023-11-03 12:16] VITALS: BP 106/59; PULSE 88; RESP 22; O2SAT 98
[2023-11-03 12:17] VITALS: BP 88/51; PULSE 167; RESP 24; O2SAT 92
[2023-11-03 12:29] LABS: Basophils Percent Auto 0.3 % (0.0-3.0); Eosinophils Percent Auto 5.3 % (0.0-7.0); Hematocrit 21.2 % (37.0-53.0); Immature Granulocytes Pct Auto 0.3 %; Lymphocytes Percent Auto 33.1 % (20-44); Mean Corpuscular HGB Conc 31 gm/dL (32-36); Mean Corpuscular Hemoglobin 33 pg (26-34); Mean Corpuscular Volume 105 fL (80-100); Monocytes Percent Auto 16.8 % (0.0-11.0); Neutrophils Percent Auto 44.2 % (42.0-72.0); Platelet Count* 165 K/uL (140-440); Red Blood Count 2.02 m/uL (4.30-5.90); White Blood Count* 3.93 K/uL (4.50-11.00)
[2023-11-03 12:38] LABS: Hemoglobin* 6.6 gm/dL (13.5-17.5)
[2023-11-03 12:39] LABS: Slide Review Reflex Yes
[2023-11-03 12:40] LABS: Chloride* 101 mmol/L (96-114); Potassium* 4.7 mmol/L (3.6-5.1); Sodium* 133 mmol/L (135-149)
[2023-11-03 12:42] LABS: Creatinine* 1.5 mg/dL (0.5-1.5); Est. Creatinine Clearance* 46.27; Estimated Glomerular Filt Rate 50 ml/min
[2023-11-03 12:43] LABS: Anion Gap 9 mEq/L (7-15); Blood Urea Nitrogen* 27 mg/dL (7-30); Calcium* 9.7 mg/dL (8.4-10.6); Carbon Dioxide* 23 mmol/L (20-32); Glucose* 95 mg/dL (60-115)
[2023-11-03 12:57] LABS: Slide Review Acceptable Review (Acceptable)
--- NOTE | 2023-11-03 13:10 | PC.NURSE ---
Pt present at [facility] for repeat labs after hospitalization last week. Upon arriving, Librado shared that he nearly fell coming into the hospital and that his hand tremor, while not new, is much worse. He attempted to instant powder supervisor the [facility] lobby and his legs buckled and he sat back down in his wheelchair. Librado was brought to a room and labs were ordered. VS done and pt extremely orthostatic (see VS). Librado shares that he has been eating and drinking water. His weight is up. Librado reports no falls since discharge from the hospital although his legs are very weak and he has nearly fallen several times. We discussed the idea of getting a walker to help keep him safe, we discussed ways to obtain a walker, this will be something they can work on in time. Librado also shared that he has noted new/increased visual symptoms. His vision is blurry, light sensitive, and he is seeing floaters. Librado has no s/s of bleeding. No blood in his stool, urine, or nosebleeds. He does report a scant amount of blood in his phlem first thing in the morning but it soon clears up. Librado is not having diarrhea or N/V and states his LBM was a few days ago. Librado and his partner, state that a lot of these symptoms started after the Xarelto dose increased to 20 mg daily. Discussed all of the above with Lori Mohr APRN HEARING AIDE TECHNICIAN. Hgb 6.6 (was 8.0 on 10/30/2023). Pt sent to [facility] ER. Report given to JOSÉ MIGUEL Vargas. Lori Mohr APRN also gave report to Dr. Obrien.
[2023-11-03] MEDS: SODIUM CHLORIDE 0.9 % (FLUSH) 10 ML SYRINGE IVF (13:23)
[2023-11-04 10:49] VITALS: BP 122/68; PULSE 90; RESP 16; TEMP 36.5; O2SAT 100
[2023-11-04 11:29] VITALS: BP 122/68; PULSE 90; RESP 18; TEMP 36.5; O2SAT 100
[2023-11-04 11:48] VITALS: BP 115/68; PULSE 75; RESP 20; TEMP 36.4; O2SAT 98
[2023-11-04 12:33] VITALS: BP 114/70; PULSE 76; RESP 16; TEMP 36.6; O2SAT 94
[2023-11-04 13:08] VITALS: BP 113/64; PULSE 73; RESP 16; TEMP 36.5; O2SAT 100
[2023-11-04 14:28] VITALS: BP 125/70; RESP 16; TEMP 36.8; O2SAT 98
[2023-11-09 08:36] LABS: Basophils Absolute Auto 0.07 K/uL (0.00-0.30); Basophils Percent Auto 0.8 % (0.0-3.0); Eosinophils Absolute Auto 0.51 K/uL (0.00-0.50); Eosinophils Percent Auto 6.1 % (0.0-7.0); Hematocrit 20.7 % (37.0-53.0); Immature Granulocytes Abs Auto 0.04 K/uL (0.00-0.30); Immature Granulocytes Pct Auto 0.5 %; Lymphocytes Percent Auto 18.9 % (20-44); Mean Corpuscular HGB Conc 30 gm/dL (32-36); Mean Corpuscular Hemoglobin 32 pg (26-34); Mean Corpuscular Volume 108 fL (80-100); Monocytes Percent Auto 10.4 % (0.0-11.0); Neutrophils Absolute Auto 5.25 K/uL (1.7-7.0); Neutrophils Percent Auto 63.3 % (42.0-72.0); Platelet Count* 343 K/uL (140-440); RDW Coefficient of Variation % 19.4 % (11.5-15.5); Red Blood Count 1.92 m/uL (4.30-5.90)
[2023-11-09 08:45] LABS: Hemoglobin* 6.2 gm/dL (13.5-17.5)
[2023-11-09 08:46] LABS: Slide Review Reflex No
[2023-11-09 08:56] LABS: Albumin* 3.6 g/dL (3.3-5.0); Chloride* 106 mmol/L (96-114); Potassium* 5.3 mmol/L (3.6-5.1); Sodium* 134 mmol/L (135-149)
[2023-11-09 08:58] LABS: Anion Gap 5 mEq/L (7-15); Bilirubin Total* 0.2 mg/dL (0.1-1.5); Carbon Dioxide* 23 mmol/L (20-32); Creatinine* 1.3 mg/dL (0.5-1.5); Est. Creatinine Clearance* 53.39; Estimated Glomerular Filt Rate 59 ml/min
[2023-11-09 08:59] LABS: Alanine Aminotransferase* 37 U/L (4-50); Alkaline Phosphatase* 105 U/L (40-150); Aspartate Amino Transferase* 33 U/L (12-35); Blood Urea Nitrogen* 29 mg/dL (7-30); Calcium* 9.1 mg/dL (8.4-10.6); Glucose* 124 mg/dL (60-115)
[2023-11-09 09:18] LABS: Fecal Occult Blood* Positive (Negative)
== END 2023-11-09 23:59 | disposition home or self-care (01) ==
LOC: CCIC 08:30
PROVIDERS: Internal Medicine Hematology & Oncology; PCP Nurse Practitioner Family; Referring Provider Nurse Practitioner Family; Visit Provider Clinical Nurse Specialist
DX: C34.12 Malignant neoplasm of upper lobe, left bronchus or lung (principal); K92.2 Gastrointestinal hemorrhage, unspecified; D62 Acute posthemorrhagic anemia
CPT/HCPCS: 36415; 36430; 36591; 78815; 80048; 80053; 82270; 82533; 83735; 84443; 85025; 86850; 86900; 86901; 86922; 96361; 96366; 96372; 96376; 96411; 96413; 96415; 96417; 99211; 99214; 99215; G0463; A9270; A9552; J1100; J1200; J1453; J1642; J1720; J2469; J3420; J3475; J3480; J7030; J7050; J9045; J9060; J9173; J9305; P9016; Q5108; S0028

== ENCOUNTER 2023-11-09 09:10 | Inpatient (IN) | payer OTHER, SELFPAY ==
[2023-11-09] VITALS (23 sets, daily range): BP systolic 103–156; BP diastolic 51–78; PULSE 68–86; RESP 16–20; TEMP 35.8–37; O2SAT 10–99; BMI 20.7
--- NOTE | 2023-11-09 10:03 | ED_ITS ---
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 Patient had an appointment with [facility] this morning he noon and hemoglobin was noted to be 6.2. He was also noted to be feeling a little bit weaker. Currently he describes his chest is feeling somewhat heavy and that it takes work to take a deep breath. He notes no blood in his stool. He states that yesterday he had some pain in his right upper abdomen but that has dissipated any has no pain today. He denies the use of ibuprofen or Motrin, denies a past history of GI bleed. There is a question in the notes whether this is bone marrow suppression verses GI losses. He did bring a stool sample to [facility] this morning. Patient notes that he has received multiple transfusions for low hemoglobin. He was hospitalized a week and a half ago at that time had upper endoscopy and a negative guaiac of stool. He received 2 units of blood and felt better and had a hemoglobin of 8. He did not have colonoscopy. According to notes Osbaldo has also been diagnosed with left paraspinal meta stases, right shoulder metastases with radiation treatment. He is currently on cisplatinum and Alimta with durvalumab. Related Data Home Medications ?Medication ?Instructions ?Recorded ?Confirmed lisinopril 10 mg tablet 10 mg PO DAILY 09/18/21 11/09/23 aspirin 81 mg tablet,delayed 81 mg PO DAILY 08/26/23 11/09/23 release (Adult Low Dose Aspirin) rosuvastatin 20 mg tablet 20 mg PO DAILY 09/22/23 11/09/23 albuterol sulfate 90 mcg/actuation 2 inh inhalation Q4H PRN 10/29/23 11/09/23 aerosol inhaler (Ventolin HFA) folic acid 1 mg tablet 1 mg PO DAILY 10/29/23 11/09/23 ondansetron HCl 4 mg tablet 4 mg PO Q8H PRN nausea and vomiting 10/29/23 11/09/23 prednisone 10 mg tablet 10 mg PO DAILY PRN 10/29/23 11/09/23 rivaroxaban 20 mg tablet (Xarelto) 20 mg PO QPM 10/29/23 11/09/23 tramadol 50 mg tablet 50 mg PO HS pain 10/29/23 11/09/23 vitamin B complex 1 tab PO DAILY 10/29/23 11/09/23 Previous Rx's ?Medication ?Instructions ?Recorded calcium carbonate 500 mg-vitamin 1 tab PO BID #90 tabs 05/18/23 D3 10 mcg (400 unit) tablet (Calcium 500 With D) prochlorperazine maleate 5 mg 5 mg PO TID PRN nausea and 08/26/23 tablet (Compazine) vomiting #90 tabs cyclobenzaprine 10 mg tablet 10 mg PO TID PRN muscle spasm #180 09/16/23 tabs Symbicort 80 mcg-4.5 mcg/actuation 2 puff inhalation BID #30.6 grams 09/22/23 HFA aerosol inhaler (budesonide-formoterol) famotidine 20 mg tablet (Pepcid) 20 mg PO BID #180 tabs 09/22/23 gabapentin 100 mg capsule 100 mg PO HS #90 caps 09/29/23 levothyroxine 112 mcg tablet 112 mcg PO DAILY #90 tabs 10/05/23 magnesium oxide 400 mg (241.3 mg 400 mg PO BID #100 tabs 10/20/23 magnesium) tablet pantoprazole 40 mg tablet,delayed 40 mg PO DAILY #30 tabs 10/30/23 release Allergies Allergy/AdvReac Type Severity Reaction Status Date / Time carboplatin Allergy Severe Anaphylaxis Verified 11/09/23 09:42 Review of Systems Status of ROS: Reports: 10 or more systems reviewed and unremarkable except as noted in History and below 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 (ICD-10) Encounter for immunotherapy ?Z29.8 - Encounter for other specified prophylactic measures (ICD-10) Encounter for chemotherapy management ?Z51.11 - Encounter for antineoplastic chemotherapy (ICD-10) Anemia associated with chemotherapy ?D64.81 - Anemia due to antineoplastic chemotherapy (ICD-10) ?T45.1X5A - Adverse effect of antineoplastic and immunosuppressive drugs, initial encounter (ICD-10) Chemotherapy induced neutropenia ?D70.1 - Agranulocytosis secondary to cancer chemotherapy (ICD-10) ?T45.1X5A - Adverse effect of antineoplastic and immunosuppressive drugs, initial encounter (ICD-10) Insomnia ?G47.00 - Insomnia, unspecified (ICD-10) PVD (peripheral vascular disease) ?I73.9 - Peripheral vascular disease, unspecified (ICD-10) Infusion reaction ?T80.90XA - Unspecified complication following infusion and therapeutic injection, initial encounter (ICD-10) 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 - Hypothyroidism due to medicaments and other exogenous substances (ICD-10) Dyspnea ?R06.00 - Dyspnea, unspecified (ICD-10) Bilateral leg cramps ?R25.2 - Cramp and spasm (ICD-10) Hyperkalemia ?E87.5 - Hyperkalemia (ICD-10) Cervical spinal stenosis ?M48.02 - Spinal stenosis, cervical region (ICD-10) Central venous catheter in place ?Z78.9 - Other specified health status (ICD-10) Cancer associated pain ?G89.3 - Neoplasm related pain (acute) (chronic) (ICD-10) Emphysema/COPD ?J43.9 - Emphysema, unspecified (ICD-10) Dermatitis ?L30.9 - Dermatitis, unspecified (ICD-10) Colon polyp ?K63.5 - Polyp of colon (ICD-10) Tobacco use disorder ?F17.200 - Nicotine dependence, unspecified, uncomplicated (ICD-10) Surgical History (Updated 10/29/23 @ 21:05 by Renetta Aguirre MD) S/P angioplasty with stent ?Z95.820 - Peripheral vascular angioplasty status with implants and grafts (ICD-10) S/P hernia repair ?Z98.890 - Other specified postprocedural states (ICD-10) ?Z87.19 - Personal history of other diseases of the digestive system (ICD-10) History of appendectomy ?Z90.49 - Acquired absence of other specified parts of digestive tract (ICD- 10) H/O colonoscopy ?Z98.890 - Other specified postprocedural states (ICD-10) Social History (Updated 10/29/23 @ 19:47 by Renetta Aguirre MD) Narrative: Partnered to Renetta for many years, she would be medical decision maker if needed. Worked for [employer] for many years. Smoker (down from 2ppd to 5 cigarettes/day in 2023). Rare social ETOH. DNR/DNI; otherwise requests full medical treatment and amenable to transfer if needed What is your current living situation?: I presently have a place to live Problems where you live: no known problems Problems where you live details: none In the past 12 months, utilities in danger of being shut off: no In past 12 months, lack of transportation kept you from medical appts, meetings, work, or getting things needed for daily living: no In the past 12 mos, have been you worried that your food would run out before you had money to buy more?: never true In the past 12 mos, the food you bought just didn't last and you didn't have money to buy more?: never true Highest level of school completed/degree received: Bachelor's degree Smoking Status: Former smoker What tobacco products do you use: cigarettes Smoking quit date/years: <= 15 years ago Do you use any of these nicotine containing products: None Second hand tobacco smoke exposure: No How often do you have a drink containing alcohol: monthly or less Alcohol type: beer, wine and hard liquor How many standard drinks containing alcohol do you have on a typical day: 1 or 2 How often do you have six or more drinks on one occasion: Never AUDIT-C Alcohol total score: 1 Non-prescribed substance use: denies use Caffeine: Yes (coffee) How often does anyone, including family, friends and others, physically hurt you : never How often does anyone, including family, friends and others, insult or talk down to you: never How often does anyone, including family, friends and others, threaten you with harm: never How often does anyone, including family, friends and others, scream or curse at you: never service: No Exam Narrative: Exam Narrative: Osbaldo is alert and oriented. He is rather pale in appearance. Mentating normally. Face symmetrical. Oral cavity with moist mucous membranes. Heart with a regular rate and rhythm and lungs are clear bilaterally. Abdomen is soft without tenderness. Lower extremities without any evidence of edema. Is moving his extremities without difficulty. Const: Vital Signs, click to edit/add: Vital Signs - 24 hr 11/09/23 09:36 11/09/23 11:26 11/09/23 11:42 Temperature 96.5 F L Pulse Rate Pulse Rate [Pulse Oximeter] 78 Respiratory Rate 20 Blood Pressure Blood Pressure [Ri ght Upper Arm] 120/67 Pulse Oximetry 97 96 97 Oxygen Delivery Me thod Room Air Room Air Nasal Cannula Oxygen Flow Rate 1 11/09/23 12:15 11/09/23 12:36 11/09/23 12:37 Temperature 97.8 F 98.0 F 98.6 F Pulse Rate 74 71 70 Pulse Rate [Pulse Oximeter] Respiratory Rate 18 18 16 Blood Pressure 103/54 L 104/51 L 112/57 L Blood Pressure [Ri ght Upper Arm] Pulse Oximetry 94 95 99 Oxygen Delivery Me thod Oxygen Flow Rate Documenting provider has reviewed patient's vital signs: yes Course Course ED Course: Osbaldo presents today [facility] concerns of low hemoglobin of 6.2 along with some shortness of breath and chest heaviness. At this time will type and cross 2 units of packed red blood cells, check a troponin, chest x-ray and repeat potassium as it did appear to be elevated at 5.3 this morning. No evidence of fevers or chills although he does report some stuffiness in his nose and therefore will also swab him for COVID. I had the pleasure of speaking with who does suggest admission for colonoscopy and an endoscopy. At this time previous evaluations of eyes against discontinuing anticoagulation given the recent stenting as well as IJ thromboembolism. Will speak to our surgeon on-call Dr. Mendez. Reevaluation(s) Reevaluation #1: Blood has been initiated and patient's color is improved and he is feeling better. Consultations Consultation #1: I had the pleasure of speaking with oncologist Dr. Dudley regarding this patient. She is informed that we are initiating 2 units of packed red blood cells, non radiated, as well as the guaiac-positive stools stools. At this time she does suggest upper endoscopy repeat as well as colonoscopy. Consultation #2: I spoke with Dr. Mendez regarding the admission for this patient and potential for endoscopies and colonoscopy tomorrow. She has checked with her colleague who is requesting holding of Xarelto and agrees to consult with admission. Vital Signs Vital signs: Initial Vital Signs Temperature 96.5 F L 11/09/23 09:36 Temperature Source Temporal Artery Scan 11/09/23 09:36 Pulse Rate 78 11/09/23 09:36 Respiratory Rate 20 11/09/23 09:36 Blood Pressure 120/67 11/09/23 09:36 Blood Pressure Mean 84 11/09/23 09:36 Blood Pressure Position Sitting 11/09/23 09:36 Pulse Oximetry 97 11/09/23 09:36 Oxygen Delivery Method Room Air 11/09/23 09:36 Vital Signs Temperature 96.5 F L 11/09/23 09:36 Pulse Rate 78 11/09/23 09:36 Respiratory Rate 20 11/09/23 09:36 Blood Pressure 120/67 11/09/23 09:36 Pulse Oximetry 97 11/09/23 09:36 Oxygen Delivery Method Room Air 11/09/23 09:36 Temperature 98.1 F 11/09/23 14:09 Pulse Rate 86 11/09/23 14:09 Respiratory Rate 18 11/09/23 14:09 Blood Pressure 122/65 11/09/23 14:09 Pulse Oximetry 95 11/09/23 14:09 Oxygen Delivery Method Room Air 11/09/23 14:09 Oxygen Flow Rate 1 11/09/23 11:42 Medications Administered Medications: Generic Name Dose Route Start Last Admin Trade Name Freq PRN Reason Stop Dose Admin Sodium Chloride 250 ml 11/09/23 10:22 11/09/23 13:16 0.9 % Sodium Chloride 250 Ml IV 11/10/23 23:59 250 ml ONCE PRN Administration MDM - SOB/Dyspnea MDM Narrative Medical decision making narrative: 1. GI bleed-patient had previously been hospitalized for anemia with a negative guaiac. Today guaiac is positive and he is experiencing some chest pressure and shortness of breath. Blood pressure is reassuring and there is no evidence of tachycardia. Hemoglobin initially 6.2. 2 units packed red blood cells ordered. Plan at this time is for admission for endoscopy and colonoscopy. 2. IJ thromboembolism-patient is currently on Xarelto, Plavix and aspirin for both the IJ thromboembolism as well as recent bypass and stenting for PVD. Pre vious notes some just continuing this medication in spite of suspicion for GI bleed. Surgeon request holding of Xarelto and I have spoken to hospitalist about this. Hospitalist will have further conversation about benefits risks of holding blood thinner. 3. Lung cancer with metastases-oxygenating well. Chest x-ray without any acute findings. 4. Disposition-admit to the floor under the care of hospitalist Dr. Aguirre. Plan for endoscopy and colonoscopy tomorrow with Dr. Dangelo. If come to my attention that the potassium ordered earlier has not been done. In fact the troponin had also been done off of this morning's labs. Therefore I am placing an order for repeat potassium which was slightly elevated at 5.3 earlier today as well as a point of care troponin. EKG was reassuring. Repeat potassium is 4.4. Likely hemolysis from earlier today. Repeat troponin is negative. Medical Records Attestation: I reviewed the patient's medical records. Lab Data Attestation: I reviewed the patient's lab results. Labs: Lab Results 11/09/23 11/09/23 11/09/23 Range/Units 08:25 10:38 13:19 Potassium Cancelled Troponin I < 0.01 L (0.01-0.04) ng/mL SARS-CoV-2 (PCR) Negative SARS-CoV-2 (Negative) Lab Acknowledgement Cancelled POC Troponin I (0.01-0.04) ng/ml Blood Type B Negative Antibody Screen NEGATIVE Crossmatch (AHG) See Detail 11/09/23 Range/Units 13:46 Potassium 4.4 Troponin I (0.01-0.04) ng/mL SARS-CoV-2 (PCR) (Negative) Lab Acknowledgement POC Troponin I 0.00 L (0.01-0.04) ng/ml Blood Type Antibody Screen Crossmatch (AHG) Imaging Data Chest x-ray: Attestation: I have reviewed the pertinent imaging results. My impression: Density noted left upper lobe. Radiologist's impression: Right IJ Port-A-Cath terminates in the distal SVC, as before. Emphysema with biapical bullous changes and air-fluid level at the left lung apex, as before. No new focal airspace consolidation. Stable cardiac and mediastinal contours. Upper abdomen and osseous structures as imaged show no acute abnormality. IMPRESSION: No evidence of acute airspace disease. ECG Data Attestation: I personally reviewed and interpreted this ECG as follows: ECG interpretation date: 11/09/23 Interpretation: EKG by my read shows sinus rhythm at a rate of 75. No acute ST or T-wave changes are noted. QT and PA intervals within normal limits. Critical Care Time Critical Care Time Critical Care Time: Yes Attestation: The patient required my highest level preparedness to intervene emergently and I personally spent this critical care time directly and personally managing the patient. This critical care time included: Obtaining a history; Examining the patient; Pulse oximetry; Ordering and reviewing of studies; Arranging urgent treatment with development of a management plan; Evaluation of patients response to treatment; Frequent reassessment discussions with other providers. This critical care time was performed to assess and manage the high probability of imminent life-threatening deterioration that could result in multiorgan failure. It was exclusive of separate billable procedures and treating other patients and teaching time. Total Critical Care Time in Minutes: 60 Discharge Plan Discharge Clinical Impression: Non-small cell cancer of left lung, Thrombosis due to central venous access device, PVD (peripheral vascular disease), GI (gastrointestinal bleed), Anemia Patient Disposition: Admitted As Observation Condition: Improved
--- NOTE | 2023-11-09 10:22 | CRLHL7_ITS ---
For Patients: As a result of the Century Cures Act, medical imaging exams and procedure reports are released immediately into your electronic medical record. You may view this report before your referring provider. If you have questions, please contact your health care provider. INDICATION: Chest heaviness. TECHNIQUE: Chest, 2 portable frontal views. COMPARISON: Chest radiograph 10/29/2023. FINDINGS: Right IJ Port-A-Cath terminates in the distal SVC, as before. Emphysema with biapical bullous changes and air-fluid level at the left lung apex, as before. No new focal airspace consolidation. Stable cardiac and mediastinal contours. Upper abdomen and osseous structures as imaged show no acute abnormality. IMPRESSION: No evidence of acute airspace disease. Dictated by Avni Muse MD @ 11/09/2023 11:04:45 AM (Electronically Signed)
[2023-11-09 11:13] LABS: SARS PCR* Negative SARS-CoV-2 (Negative)
[2023-11-09 11:40] LABS: Troponin I* < 0.01 ng/mL (0.01-0.04)
[2023-11-09] MEDS: 0.9 % SODIUM CHLORIDE 250 ml IV (13:16)
[2023-11-09 14:14] LABS: Potassium* 4.4 mmol/L (3.6-5.1)
--- NOTE | 2023-11-09 14:52 | PM.IMHP1 ---
Hospitalist- H&P: HPI History of Present Illness Date Seen: 11/09/23 Chief complaint: GI Bleed - low hgb - Short of Breath Narrative: ADMISSION HISTORY AND PHYSICAL - HOSPITALIST Chief Complaint: ABLA, weakness, mild dyspnea. Current metastatic Lung Cancer under treatment. HPI: 68-year-old male who has a history of metastatic lung cancer, currently being treated with Durvalumab and Alimta. He has had a complicated course in the last 6 weeks. On 09/30 he had a R iliac and SFA stent with Dr. Regan at [facility], on lifelong ASA. 3 weeks later, diagnosed with a R IJ thrombosis, and started on Xarelto. When he presented for his 1st admission on October 28 he was on aspirin and Xarelto. He had a severe symptomatic anemia. Interestingly, his guaiac was negative at that time. He was admitted overnight with weakness and a hemoglobin that was sub 7. He was transfused for the 1st time at this hospitalization, 2 units. Upper endoscopy was unremarkable. His guaiac has been negative and he was stable overnight and then went home. Of note we restarted his anticoagulation given his high risk of clots given his recent IJ thrombus and PVD stents. Patient was aware of the risks of rebleed. Return to the ED 4 days later, 11/02 with a return of a hemoglobin sub 7. He was not admitted, transfused another 2 units and returned to [facility] Presented to [facility] this morning was found to be severely anemic once again. Sent to the ED. hospital medicine team was asked for admission and further management of this recurrent, severe anemia. As this is the 3rd occurrence of severe anemia, heme Onc would like a repeat endoscopy and colonoscopy while admitted. ER COURSE: Transfused one unit of blood, small fluid bolus was started in the ED. consultations with General surgery and heme Onc by phone were accomplished. -general surgery agrees to upper and lower endoscopy -heme/onc recommends admission, scopes, transfusion. CODE STATUS: DNR/DNI EMERGENCY CONTACT PLAN: Renetta Green Rel To [facility] Life Partner Cell I've updated the PFSH, medications and allergies in the Expanse tabs. INVESTIGATIONS: LABS/MICRO/ECG/IMAGING -He is afebrile Blood pressures initially were a little soft 103/54, these are improved to 1222/65 by the time he arrived on the floor. Respiratory rate is unlabored and he is on room air. Heart rate is in the 70s and 80s. His admit weight is 71.2 kg. Fortunately he is not neutropenic at this visit. His total white blood cell count is 8.3. However he is severely anemic with a hemoglobin at 6.2, hematocrit 20.7. MCV 108. His platelet count is normal. His initial blood draw 0 revealed a hyperkalemia, however this was rechecked and was 4.4. Mild hyponatremia at 134. His renal function is baseline with a creatinine of 1.3. GFR 59. Blood glucose 124. LFTs and troponin are normal. Guaiac-positive. Admit chest x-ray is negative. REVIEW OF SYSTEMS: 12-point ROS completed with patient and negative unless otherwise stated in HPI or below. PHYSICAL EXAM: CONSTITUTIONAL: resting comfortably; alert when awakened. He is clear; describes weakness without notable melana or hematochezia. VITAL SIGNS: see record. HEENT: Normocephalic, atraumatic. PERRL, EOMI, conjunctivae pink, no scleral icterus. Ears and nose externally normal. Pharynx normal. NECK: No JVD. No carotid bruit, no thyromegaly, no adenopathy. CHEST: Clear to auscultation bilaterally HEART: S1 and S2 normal. No harsh murmurs. Edema MUSCULOSKELETAL: No gross joint deformity or swelling. NEURO: Cranial nerves intact. Grossly intact. No asymmetric findings. SKIN: No rashes, petechiae, concerning changes PSYCHIATRIC: Euthymic. ADMIT TO [facility]: FLOOR CARE DVT: SCDs GI: IV and PO PPI, sips and chips Time spent: Today I spent 75 minutes seeing the patient, discussing the patient with ER staff, reviewing Expanse and EPIC notes/diagnostics, discussing the care plan with our care time that includes social work, PT/OT, pharmacy, RT, fpc and documenting my impressions and plan in the medical record. [facility] Medical History (Updated 11/09/23 @ 16:29 by Ibis Levin MD) Internal jugular (IJ) vein thromboembolism, acute ?I82.C19 - Acute embolism and thrombosis of unspecified internal jugular vein (ICD-10) Anemia ?D64.9 - Anemia, unspecified (ICD-10) Chronic anticoagulation ?Z79.01 - superintendent terminal (current) use of anticoagulants (ICD-10) Encounter for immunotherapy ?Z29.8 - Encounter for other specified prophylactic measures (ICD-10) Encounter for chemotherapy management ?Z51.11 - Encounter for antineoplastic chemotherapy (ICD-10) Anemia associated with chemotherapy ?D64.81 - Anemia due to antineoplastic chemotherapy (ICD-10) ?T45.1X5A - Adverse effect of antineoplastic and immunosuppressive drugs, initial encounter (ICD-10) Chemotherapy induced neutropenia ?D70.1 - Agranulocytosis secondary to cancer chemotherapy (ICD-10) ?T45.1X5A - Adverse effect of antineoplastic and immunosuppressive drugs, initial encounter (ICD-10) Insomnia ?G47.00 - Insomnia, unspecified (ICD-10) PVD (peripheral vascular disease) ?I73.9 - Peripheral vascular disease, unspecified (ICD-10) Infusion reaction ?T80.90XA - Unspecified complication following infusion and therapeutic injection, initial encounter (ICD-10) 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 - Hypothyroidism due to medicaments and other exogenous substances (ICD-10) Dyspnea ?R06.00 - Dyspnea, unspecified (ICD-10) Bilateral leg cramps ?R25.2 - Cramp and spasm (ICD-10) Hyperkalemia ?E87.5 - Hyperkalemia (ICD-10) Cervical spinal stenosis ?M48.02 - Spinal stenosis, cervical region (ICD-10) Central venous catheter in place ?Z78.9 - Other specified health status (ICD-10) Cancer associated pain ?G89.3 - Neoplasm related pain (acute) (chronic) (ICD-10) Emphysema/COPD ?J43.9 - Emphysema, unspecified (ICD-10) Dermatitis ?L30.9 - Dermatitis, unspecified (ICD-10) Colon polyp ?K63.5 - Polyp of colon (ICD-10) Tobacco use disorder ?F17.200 - Nicotine dependence, unspecified, uncomplicated (ICD-10) Surgical History (Updated 10/29/23 @ 21:05 by Renetta Aguirre MD) S/P angioplasty with stent ?Z95.820 - Peripheral vascular angioplasty status with implants and grafts (ICD-10) S/P hernia repair ?Z98.890 - Other specified postprocedural states (ICD-10) ?Z87.19 - Personal history of other diseases of the digestive system (ICD-10) History of appendectomy ?Z90.49 - Acquired absence of other specified parts of digestive tract (ICD-10) H/O colonoscopy ?Z98.890 - Other specified postprocedural states (ICD-10) Social History (Updated 10/29/23 @ 19:47 by Renetta Aguirre MD) Narrative: Partnered to Renetta for many years, she would be medical decision maker if needed. Worked for [employer] for many years. Smoker (down from 2ppd to 5 cigarettes/day in 2023). Rare social ETOH. DNR/DNI; otherwise requests full medical treatment and amenable to transfer if needed What is your current living situation?: I presently have a place to live Problems where you live: no known problems Problems where you live details: none In the past 12 months, utilities in danger of being shut off: no In past 12 months, lack of transportation kept you from medical appts, meetings, work, or getting things needed for daily living: no In the past 12 mos, have been you worried that your food would run out before you had money to buy more?: never true In the past 12 mos, the food you bought just didn't last and you didn't have money to buy more?: never true Highest level of school completed/degree received: Bachelor's degree Smoking Status: Former smoker What tobacco products do you use: cigarettes Smoking quit date/years: <= 15 years ago Do you use any of these nicotine containing products: None Second hand tobacco smoke exposure: No How often do you have a drink containing alcohol: monthly or less Alcohol type: beer, wine and hard liquor How many standard drinks containing alcohol do you have on a typical day: 1 or 2 How often do you have six or more drinks on one occasion: Never AUDIT-C Alcohol total score: 1 Non-prescribed substance use: denies use Caffeine: Yes (coffee) How often does anyone, including family, friends and others, physically hurt you: never How often does anyone, including family, friends and others, insult or talk down to you: never How often does anyone, including family, friends and others, threaten you with harm: never How often does anyone, including family, friends and others, scream or curse at you: never service: No Meds Home Medications and Allergies Home Medications ?Medication ?Instructions ?Recorded ?Confirmed ?Type lisinopril 10 mg tablet 10 mg PO DAILY 09/18/21 11/09/23 History aspirin 81 mg tablet,delayed 81 mg PO DAILY 08/26/23 11/09/23 History release (Adult Low Dose Aspirin) rosuvastatin 20 mg tablet 20 mg PO DAILY 09/22/23 11/09/23 History albuterol sulfate 90 mcg/actuation 2 inh inhalation Q4H PRN 10/29/23 11/09/23 History aerosol inhaler (Ventolin HFA) folic acid 1 mg tablet 1 mg PO DAILY 10/29/23 11/09/23 History ondansetron HCl 4 mg tablet 4 mg PO Q8H PRN nausea and vomiting 10/29/23 11/09/23 History prednisone 10 mg tablet 10 mg PO DAILY PRN 10/29/23 11/09/23 History rivaroxaban 20 mg tablet (Xarelto) 20 mg PO QPM 10/29/23 11/09/23 History tramadol 50 mg tablet 50 mg PO HS pain 10/29/23 11/09/23 History vitamin B complex 1 tab PO DAILY 10/29/23 11/09/23 History Allergies Allergy/AdvReac Type Severity Reaction Status Date / Time carboplatin Allergy Severe Anaphylaxis Verified 11/09/23 09:42 Exam Const: Vital Signs, click to edit/add: Vital Signs - 24 hr 11/09/23 09:36 11/09/23 11:26 11/09/23 11:42 Temperature 96.5 F L Pulse Rate Pulse Rate [Pulse Oximeter] 78 Respiratory Rate 20 Blood Pressure Blood Pressure [Ri ght Arm] Blood Pressure [Ri ght Upper Arm] 120/67 Pulse Oximetry 97 96 97 Oxygen Delivery Me thod Room Air Room Air Nasal Cannula Oxygen Flow Rate 1 11/09/23 12:15 11/09/23 12:36 11/09/23 12:37 Temperature 97.8 F 98.0 F 98.6 F Pulse Rate 74 71 70 Pulse Rate [Pulse Oximeter] Respiratory Rate 18 18 16 Blood Pressure 103/54 L 104/51 L 112/57 L Blood Pressure [Ri ght Arm] Blood Pressure [Ri ght Upper Arm] Pulse Oximetry 94 95 99 Oxygen Delivery Me thod Oxygen Flow Rate 11/09/23 14:09 11/09/23 14:45 Temperature 98.1 F 98.1 F Pulse Rate 86 Pulse Rate [Pulse Oximeter] 86 Respiratory Rate 18 18 Blood Pressure 122/65 Blood Pressure [Ri ght Arm] 122/65 Blood Pressure [Ri ght Upper Arm] Pulse Oximetry 95 95 Oxygen Delivery Me thod Room Air Oxygen Flow Rate Hospitalist - H&P: Result Labs Labs: BMP 11/09/23 11/09/23 08:25 13:46 Potassium Cancelled 4.4 Cardiac Enzymes 11/09/23 Range/Units 08:25 Troponin I < 0.01 L (0.01-0.04) ng/mL Assessment and Plan Assessment and plan (1) ABLA (acute blood loss anemia): Problem comment: -guaiac positive- -NPO status with sips/chips -IV protonix -EGD/Scope with Dr. Dangelo 11/09, prep ordered Status: Acute (2) GI (gastrointestinal bleed): Problem comment: -after his EGD 10 days ago; Dr. Shay reported an unremarkable scope and thought angiodysplasia was likely somewhere distal to his EGD inspection. -hold OAC 11/08; proceed cautiously with treatment, biopsies. -consider inspection and then outpatient GI referral -pending discussion of his OAC plan once we scope is complete Status: Acute (3) 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 Dudley of Oncology Status: Acute (4) Chronic anticoagulation: Problem comment: -given his history of IJ thrombus embolism with his Port-A-Cath and history of peripheral vascular disease requiring right SFA to P1 segment angioplasty and stenting he has been on anticoagulation to include Xarelto and aspirin. -ongoing discussion of r/b/a is needed given this recurrent anemia Status: Acute (5) Frequent falls: Problem comment: -felt related to treatment for cancer; less problematic in recent 1-2 weeks. Status: Acute (6) Central venous catheter in place: Problem comment: portacath Status: Acute (7) PVD (peripheral vascular disease): Problem comment: - 10/01/23: Status post right SFA to P1 segment angioplasty and stenting at [place] with Dr. 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
--- NOTE | 2023-11-09 15:39 | PC.NURSE ---
Admitted to Med Surg at 1355. Blood transfused, VSS, no reactions noted.
[2023-11-09] MEDS: bisacodyL 5 MG TABLET DR 10 MG PO (17:16)
[2023-11-09] MEDS: polyethylene glycoL 238 GM BULK BOTTLE PO (17:17)
[2023-11-09] MEDS: PANTOPRAZOLE SODIUM 40 MG INJ IVP (17:23)
[2023-11-09] MEDS: MAGNESIUM OXIDE 400 MG TABLET PO (18:14)
[2023-11-09] MEDS: FAMOTIDINE 20 MG TABLET PO (20:37)
[2023-11-09] MEDS: SODIUM CHLORIDE 0.9 % (FLUSH) 10 ML SYRINGE 5 ML IVF (20:37)
[2023-11-09] MEDS: TRAMADOL HCL 50 MG TABLET PO (20:37)
[2023-11-09] MEDS: GABAPENTIN 100 MG CAPSULE PO (20:37)
[2023-11-09 21:11] LABS: Hemoglobin* 7.9 gm/dL (13.5-17.5)
[2023-11-10] VITALS (16 sets, daily range): BP systolic 108–152; BP diastolic 60–99; PULSE 57–90; RESP 16–18; TEMP 36.4–36.9; O2SAT 94–100; BMI 20.6
--- NOTE | 2023-11-10 06:11 | PC.NURSE ---
End of shift [id number]. Pt is A&O, afebrile and VSS. He is independent up to [facility] with a steady gait. Pt received a total of 4 units PRBC?s overnight with no evidence of transfusion reactions. He denies having any pain, dizziness or nausea. He?s had x4 large loose, black BM?s overnight. NPO for planned upper & lower endoscopy today. PIV in left AC SL after transfusions. TELE reads [facility] w/ [facility]. ?
[2023-11-10] MEDS: OMEPRAZOLE 20 MG CAPSULE DR 40 MG PO (06:15)
[2023-11-10] MEDS: LEVOTHYROXINE 112 MCG TABLET PO (06:15)
[2023-11-10 06:35] LABS: Hematocrit 30.9 % (37.0-53.0); Hemoglobin* 10.1 gm/dL (13.5-17.5); Mean Corpuscular HGB Conc 33 gm/dL (32-36); Mean Corpuscular Hemoglobin 31 pg (26-34); Mean Corpuscular Volume 95 fL (80-100); Platelet Count* 281 K/uL (140-440); Red Blood Count 3.27 m/uL (4.30-5.90); White Blood Count* 5.58 K/uL (4.50-11.00)
[2023-11-10 06:50] LABS: Chloride* 106 mmol/L (96-114); Potassium* 4.7 mmol/L (3.6-5.1); Sodium* 134 mmol/L (135-149)
[2023-11-10 06:51] LABS: Slide Review Reflex No
[2023-11-10 06:52] LABS: Creatinine* 1.1 mg/dL (0.5-1.5); Estimated Glomerular Filt Rate 72 ml/min
[2023-11-10 06:53] LABS: Anion Gap 6 mEq/L (7-15); Blood Urea Nitrogen* 23 mg/dL (7-30); Calcium* 9.3 mg/dL (8.4-10.6); Carbon Dioxide* 22 mmol/L (20-32); Glucose* 81 mg/dL (60-115)
[2023-11-10 07:01] LABS: INR 1.07 (0.91-1.10); Prothrombin Time 14.5 Seconds
[2023-11-10] MEDS: ROSUVASTATIN CALCIUM 10 MG TABLET 20 MG PO (08:30)
[2023-11-10] MEDS: SODIUM CHLORIDE 0.9 % (FLUSH) 10 ML SYRINGE 5 ML IVF ×2 (08:31→20:35)
--- NOTE | 2023-11-10 10:14 | P.IMPN_ITS ---
Progress Note: A&P Assessment and plan (1) ABLA (acute blood loss anemia): Problem details: -guaiac positive- -NPO status with sips/chips -IV protonix -EGD/Scope with Dr. Dangelo 11/09, completed bowel prep, discussed with Dr. Dangelo how bowel prep still has dark pigmentation. Plan for now is to attempt EGD and colonoscopy and if need be consider repeating bowel prep in repeating colonoscopy attempt tomorrow. Status: Acute (2) GI (gastrointestinal bleed): Problem details: -after his EGD 10 days ago; Dr. Shay reported an unremarkable scope and thought angiodysplasia was likely somewhere distal to his EGD inspection. -hold OAC 11/08; proceed cautiously with treatment, biopsies. -consider inspection and then outpatient GI referral -pending discussion of his OAC plan once we scope is complete Status: Acute (3) Non-small cell cancer of left lung: Problem details: - metastatic to spine, follows with Dr. Dudley of Oncology - currently being treated with Durvalumab and Alimta Status: Acute (4) Chronic anticoagulation: Problem details: -given his history of IJ thrombus embolism with his Port-A-Cath and history of peripheral vascular disease requiring right SFA to P1 segment angioplasty and stenting he has been on anticoagulation to include Xarelto and aspirin. -ongoing discussion of r/b/a is needed given this recurrent anemia Status: Acute (5) PVD (peripheral vascular disease): Problem details: - 10/01/23: Status post right SFA to P1 segment angioplasty and stenting at [place] with Dr. Regan, lifelong ASA recommended Status: Acute (6) Cancer associated pain: Status: Acute (7) Emphysema/COPD: Status: Acute (8) Pancytopenia: Problem details: - noted, likely iatrogenic, follow Status: Acute Plan 1. Reviewed impression and plan with patient. 2. Answered his questions to satisfaction. 3. Patient agreeable with above stated plans and recommendations a Time Spent With Patient Total time spent: 30 min Subjective Date Seen: 11/10/23 Interval history: Admission history of present illness: ?68-year-old male who has a history of metastatic lung cancer, currently being treated with Durvalumab and Alimta. He has had a complicated course in the last 6 weeks. ?On 09/30 he had a R iliac and SFA stent with Dr. Regan at [facility], on lifelong ASA. 3 weeks later, diagnosed with a R IJ thrombosis, and started on Xarelto. ?When he presented for his 1st admission on October 28 he was on aspirin and Xarelto. He had a severe symptomatic anemia. Interestingly, his guaiac was negative at that time. He was admitted overnight with weakness and a hemoglobin that was sub 7. He was transfused for the 1st time at this hospitalization, 2 units. Upper endoscopy was unremarkable. His guaiac has been negative and he was stable overnight and then went home. Of note we restarted his anticoagulation given his high risk of clots given his recent IJ thrombus and PVD stents. Patient was aware of the risks of rebleed. ?Return to the ED 4 days later, 11/02 with a return of a hemoglobin sub 7. He was not admitted, transfused another 2 units and returned to [facility] ?Presented to [facility] this morning was found to be severely anemic once again. Sent to the ED. hospital medicine team was asked for admission and further management of this recurrent, severe anemia. As this is the 3rd occurrence of severe anemia, heme Onc would like a repeat endoscopy and colonoscopy while admitted. ?ER COURSE: Transfused one unit of blood, small fluid bolus was started in the ED. consultations with General surgery and heme Onc by phone were accomplished. -general surgery agrees to upper and lower endoscopy -heme/onc recommends admission, scopes, transfusion.? Hospital day 2: Symptomatic acute blood loss anemia with likely GI source. Known metastatic non-small cell lung cancer for which he follows with Oncology and is receiving Durvalumab and Alimta. Feels improved status post 4 units packed red blood cells. On presentation his hemoglobin was 6.9. This morning his hemoglobin is 10.1. Tolerated bowel prep for colonoscopy. Was passing clear effluent until this morning when past clear affluent mixed with darker, black pigmentation. No active blood clots or active bleeding. Denies abdominal pain, nausea, vomiting. Able to get up and walk without any orthostasis or dizziness. Exam Narrative: Exam Narrative: I examine patient in his hospital room. Appears comfortable and in no acute distress. Vision and hearing are adequate. Alert and oriented x4. Friendly, articulate, cooperative. Lungs are clear to auscultation. Heart tones with regular rhythm. Abdomen with active bowel sounds, soft, nontender. Extremities without edema. Independent in transfer, station, and gait. Const: Vital Signs, click to edit/add: Vital Signs - 24 hr 11/09/23 11:26 11/09/23 11:42 11/09/23 12:15 Temperature 97.8 F Pulse Rate 74 Pulse Rate [Pulse Oximeter] Respiratory Rate 18 Blood Pressure 103/54 L Blood Pressure [Ri ght Arm] Pulse Oximetry 96 97 94 Oxygen Delivery Me thod Room Air Nasal Cannula Oxygen Flow Rate 1 11/09/23 12:36 11/09/23 12:37 11/09/23 14:09 Temperature 98.0 F 98.6 F 98.1 F Pulse Rate 71 70 Pulse Rate [Pulse Oximeter] 86 Respiratory Rate 18 16 18 Blood Pressure 104/51 L 112/57 L Blood Pressure [Ri ght Arm] 122/65 Pulse Oximetry 95 99 95 Oxygen Delivery Me thod Room Air Oxygen Flow Rate 11/09/23 14:09 11/09/23 14:44 11/09/23 14:44 Temperature 97.6 F Pulse Rate Pulse Rate [Pulse Oximeter] 86 Respiratory Rate 18 18 18 Blood Pressure Blood Pressure [Ri ght Arm] 122/65 Pulse Oximetry 95 98 98 Oxygen Delivery Me thod Room Air Room Air Room Air Oxygen Flow Rate 1 1 11/09/23 14:45 11/09/23 15:00 11/09/23 15:00 Temperature 98.1 F Pulse Rate 86 Pulse Rate [Pulse Oximeter] 86 Respiratory Rate 18 18 Blood Pressure 122/65 Blood Pressure [Ri ght Arm] Pulse Oximetry 95 98 Oxygen Delivery Me thod Oxygen Flow Rate 11/09/23 17:51 11/09/23 18:07 11/09/23 18:37 Temperature 97.7 F 97.6 F 97.6 F Pulse Rate 74 70 75 Pulse Rate [Pulse Oximeter] Respiratory Rate 18 18 18 Blood Pressure 141/73 H 149/76 H 128/78 Blood Pressure [Ri ght Arm] Pulse Oximetry 96 99 98 Oxygen Delivery Me thod Oxygen Flow Rate 11/09/23 19:10 11/09/23 20:10 11/09/23 20:10 Temperature 97.6 F 98.3 F Pulse Rate 76 78 Pulse Rate [Pulse Oximeter] Respiratory Rate 18 18 Blood Pressure 156/77 H 129/68 Blood Pressure [Ri ght Arm] Pulse Oximetry 10 L 95 95 Oxygen Delivery Me thod Oxygen Flow Rate 11/09/23 20:10 11/09/23 20:31 11/09/23 21:32 Temperature 98.2 F 98.0 F Pulse Rate 72 74 Pulse Rate [Pulse Oximeter] 78 Respiratory Rate 18 18 16 Blood Pressure 127/61 133/73 Blood Pressure [Ri ght Arm] Pulse Oximetry 95 95 Oxygen Delivery Me thod Oxygen Flow Rate 11/09/23 21:34 11/09/23 21:55 11/09/23 22:25 Temperature 98.0 F 98.0 F 98.0 F Pulse Rate 74 74 70 Pulse Rate [Pulse Oximeter] Respiratory Rate 16 18 16 Blood Pressure 133/73 126/73 127/69 Blood Pressure [Ri ght Arm] Pulse Oximetry 94 94 96 Oxygen Delivery Me thod Oxygen Flow Rate 11/09/23 23:00 11/09/23 23:15 11/09/23 23:46 Temperature 98.1 F 97.7 F Pulse Rate 74 68 73 Pulse Rate [Pulse Oximeter] Respiratory Rate 16 16 Blood Pressure 118/58 L 119/56 L Blood Pressure [Ri ght Arm] Pulse Oximetry 94 98 Oxygen Delivery Me thod Oxygen Flow Rate 11/10/23 00:00 11/10/23 00:34 11/10/23 00:45 Temperature 98 F 97.8 F Pulse Rate 90 77 73 Pulse Rate [Pulse Oximeter] Respiratory Rate 18 18 18 Blood Pressure 108/60 137/75 138/92 H Blood Pressure [Ri ght Arm] Pulse Oximetry 96 96 95 Oxygen Delivery Me thod Oxygen Flow Rate 11/10/23 01:00 11/10/23 01:30 11/10/23 02:00 Temperature 97.5 F L 97.5 F L 97.5 F L Pulse Rate 67 67 73 Pulse Rate [Pulse Oximeter] Respiratory Rate 16 16 18 Blood Pressure 138/92 H 125/73 137/78 Blood Pressure [Ri ght Arm] Pulse Oximetry 95 95 97 Oxygen Delivery Me thod Oxygen Flow Rate 11/10/23 02:15 11/10/23 02:59 11/10/23 03:00 Temperature 97.6 F 98 F 98 F Pulse Rate 73 72 Pulse Rate [Pulse Oximeter] 72 Respiratory Rate 18 18 18 Blood Pressure 142/99 H 139/67 Blood Pressure [Ri ght Arm] 139/67 Pulse Oximetry 98 97 97 Oxygen Delivery Me thod Room Air Oxygen Flow Rate 11/10/23 07:00 11/10/23 07:00 11/10/23 07:12 Temperature 97.6 F Pulse Rate 62 Pulse Rate [Pulse Oximeter] 70 Respiratory Rate 16 Blood Pressure Blood Pressure [Ri ght Arm] 142/77 H Pulse Oximetry 94 94 Oxygen Delivery Me thod Room Air Oxygen Flow Rate Labs Labs: Laboratory Results - last 24 hr 11/09/23 11/09/23 11/09/23 08:25 10:38 13:19 WBC RBC Hgb Hct MCV MCH MCHC Plt Count INR Sodium Potassium Cancelled Chloride Carbon Dioxide Anion Gap BUN Creatinine Estimated Creat Clear Estimated GFR Glucose Calcium Troponin I < 0.01 L SARS-CoV-2 (PCR) Negative SARS-CoV-2 Lab Acknowledgement Cancelled POC Troponin I Blood Type B Negative Antibody Screen NEGATIVE Crossmatch ([facility]) See Detail 11/09/23 11/09/23 11/10/23 13:46 20:50 06:17 WBC 5.58 RBC 3.27 L Hgb 7.9 L* 10.1 L Hct 30.9 L MCV 95 MCH 31 MCHC 33 Plt Count 281 INR 1.07 Sodium 134 L Potassium 4.4 4.7 Chloride 106 Carbon Dioxide 22 Anion Gap 6 L BUN 23 Creatinine 1.1 Estimated Creat Clear 62.70 Estimated GFR 72 Glucose 81 Calcium 9.3 Troponin I SARS-CoV-2 (PCR) Lab Acknowledgement POC Troponin I 0.00 L Blood Type Antibody Screen Crossmatch ([facility])
--- NOTE | 2023-11-10 11:36 | P.ANES_ITS ---
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
--- NOTE | 2023-11-10 11:48 | PM.EN ---
Chart Event Note Chart Event Note: Upper endoscopy with no evidence blood in stomach or duo, no source of bleeding identified. Previously noted gastritis appears to be resolved. Colonoscopy performed, poor visualization due to dark tarry stool coating entire colon. I was able to intubate the ileocecal valve with evidence of dark blood within the terminal ileum. Findings indicate small bowel as likely source of ongoing blood loss. No bright red blood or active bleeding identified.
[2023-11-10] MEDS: FOLIC ACID 1 MG TABLET PO (12:25)
[2023-11-10] MEDS: MAGNESIUM OXIDE 400 MG TABLET PO ×2 (12:25→17:46)
[2023-11-10] MEDS: FAMOTIDINE 20 MG TABLET PO ×2 (12:25→20:35)
[2023-11-10 13:40] LABS: Hemoglobin* 10.9 gm/dL (13.5-17.5)
[2023-11-10] MEDS: FLUTICASONE PROPIONATE NASAL 1 SPRAY NOSTRIL-B (15:30)
--- NOTE | 2023-11-10 19:17 | PC.NURSE ---
Pt is pleasant, alert, oriented and vitally stable. Had colon and endoscopes done, came back around 1200. Hgb was 10.1 @ 0600, 10.9 @ 1332, retake @ 1900. Pt is on a regular diet, tolerating well. He will need to be a low carb starting at?breakfast for a possible pet scan on 11/11. Up independently in room. He is saline locked in his left AC. ?
[2023-11-10 19:26] LABS: Hemoglobin* 10.7 gm/dL (13.5-17.5)
[2023-11-10] MEDS: TRAMADOL HCL 50 MG TABLET PO (20:34)
[2023-11-10] MEDS: GABAPENTIN 100 MG CAPSULE PO (20:35)
[2023-11-10] MEDS: BUDESONIDE FORMOTEROL 2 EACH IH (20:35)
[2023-11-11 03:00] VITALS: BP 123/79; PULSE 86; RESP 18; TEMP 36.6; O2SAT 95
[2023-11-11] MEDS: OMEPRAZOLE 20 MG CAPSULE DR 40 MG PO (05:19)
[2023-11-11] MEDS: LEVOTHYROXINE 112 MCG TABLET PO (05:20)
--- NOTE | 2023-11-11 06:15 | PC.NURSE ---
End of shift note ([id number]): Patient pleasant, alert and oriented. Ambulates independently in room. Given scheduled gabapentin and Tramadol. Denied pain during night. ?
[2023-11-11 06:28] LABS: Hematocrit 31.5 % (37.0-53.0); Hemoglobin* 10.1 gm/dL (13.5-17.5); Mean Corpuscular HGB Conc 32 gm/dL (32-36); Mean Corpuscular Hemoglobin 31 pg (26-34); Mean Corpuscular Volume 96 fL (80-100); Platelet Count* 278 K/uL (140-440); Red Blood Count 3.28 m/uL (4.30-5.90); White Blood Count* 6.03 K/uL (4.50-11.00)
[2023-11-11 06:30] LABS: Slide Review Reflex No
[2023-11-11 06:41] LABS: Chloride* 105 mmol/L (96-114); Potassium* 4.4 mmol/L (3.6-5.1); Sodium* 133 mmol/L (135-149)
[2023-11-11 06:43] LABS: Creatinine* 1.2 mg/dL (0.5-1.5); Est. Creatinine Clearance* 56.27; Estimated Glomerular Filt Rate 65 ml/min
[2023-11-11 06:44] LABS: Anion Gap 4 mEq/L (7-15); Blood Urea Nitrogen* 17 mg/dL (7-30); Calcium* 9.2 mg/dL (8.4-10.6); Carbon Dioxide* 24 mmol/L (20-32); Glucose* 86 mg/dL (60-115)
[2023-11-11 06:46] LABS: INR 1.04 (0.91-1.10); Prothrombin Time 14.2 Seconds
[2023-11-11 07:00] VITALS: BP 136/75; PULSE 64; PULSE 66; RESP 16; TEMP 36.9; O2SAT 97
[2023-11-11] MEDS: FOLIC ACID 1 MG TABLET PO (08:56)
[2023-11-11] MEDS: ROSUVASTATIN CALCIUM 10 MG TABLET 20 MG PO (08:57)
[2023-11-11] MEDS: MAGNESIUM OXIDE 400 MG TABLET PO (08:57)
[2023-11-11] MEDS: FAMOTIDINE 20 MG TABLET PO (08:58)
[2023-11-11] MEDS: FLUTICASONE PROPIONATE NASAL 1 SPRAY NOSTRIL-B (08:58)
[2023-11-11] MEDS: SODIUM CHLORIDE 0.9 % (FLUSH) 10 ML SYRINGE 5 ML IVF (08:58)
[2023-11-11] MEDS: BUDESONIDE FORMOTEROL 2 EACH IH (08:58)
[2023-11-11] MEDS: ENOXAPARIN 80 MG/0.8 ML INJ 70 MG SUBCUT (10:34)
--- NOTE | 2023-11-11 13:05 | PC.NURSE ---
Pt discharged @ 1139, ambulated, by self. Discharge and belongings form signed.
--- NOTE | 2023-11-11 15:37 | P.DS_ITS ---
DS: Providers Provider Date Seen: 11/11/23 Date of admission: 11/09/23 14:47 Primary care physician: Martina Cid, SET ILLUSTRATOR, [employer] Admitting Clinician: Renetta Aguirre MD Attending Physician on discharge: Dylon Person MD Date of Discharge: 11/11/23 DS: Diagnosis Discharge Diagnosis (1) GI (gastrointestinal bleed): Status: Acute Problem details: -after his EGD 10 days ago; Dr. Shay reported an unremarkable scope and thought angiodysplasia was likely somewhere distal to his EGD inspection. -hold OAC 11/08; proceed cautiously with treatment, biopsies. -consider inspection and then outpatient GI referral -pending discussion of his OAC plan once we scope is complete (2) ABLA (acute blood loss anemia): Status: Acute Problem details: -guaiac positive- -NPO status with sips/chips -IV protonix -EGD/Scope with Dr. Dangelo 11/09, completed bowel prep, discussed with Dr. Dangelo how bowel prep still has dark pigmentation. Plan for now is to attempt EGD and colonoscopy and if need be consider repeating bowel prep in repeating colonoscopy attempt tomorrow. 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 Dudley of Oncology - currently being treated with Durvalumab and Alimta (7) Chronic anticoagulation: Status: Acute Problem details: -given his history of IJ thrombus embolism with his Port-A-Cath and history of peripheral vascular disease requiring right SFA to P1 segment angioplasty and stenting he has been on anticoagulation to include Xarelto and aspirin. -ongoing discussion of r/b/a is needed given this recurrent anemia (8) Frequent falls: Status: Acute Problem details: -felt related to treatment for cancer; less problematic in recent 1-2 weeks. (9) Pancytopenia: Status: Acute Problem details: - noted, likely iatrogenic, follow (10) PVD (peripheral vascular disease): Status: Acute Problem details: - 7/18/24: Status post right SFA to P1 segment angioplasty and stenting at [facility] with Dr. 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 He has had a complicated course in the last 6 weeks. ?On 09/30 he had a R iliac and SFA stent with Dr. Regan at [facility], on lifelong ASA. 3 weeks later, diagnosed with a R IJ thrombosis, and started on Xarelto. ?When he presented for his 1st admission on October 28 he was on aspirin and Xarelto. He had a severe symptomatic anemia. Interestingly, his guaiac was negative at that time. He was admitted overnight with weakness and a hemoglobin that was sub 7. He was transfused for the 1st time at this hospitalization, 2 units. Upper endoscopy was unremarkable. His guaiac has been negative and he was stable overnight and then went home. Of note we restarted his anticoagulation given his high risk of clots given his recent IJ thrombus and PVD stents. Patient was aware of the risks of rebleed. ?Return to the ED 4 days later, 11/02 with a return of a hemoglobin sub 7. He was not admitted, transfused another 2 units and returned to [facility] ?Presented to [facility] this morning was found to be severely anemic once again. Sent to the ED. hospital medicine team was asked for admission and further management of this recurrent, severe anemia. As this is the 3rd occurrence of severe anemia, heme Onc would like a repeat endoscopy and colonoscopy while admitted. ?ER COURSE: Transfused one unit of blood, small fluid bolus was started in the ED. consultations with General surgery and heme Onc by phone were accomplished. -general surgery agrees to upper and lower endoscopy -heme/onc recommends admission, scopes, transfusion. Rivaroxaban was held throughout the entire hospitalization. Received a total of 4 units of packed red blood cells during the course of hospital stay. Hemoglobin stabilized at 10. No further bleeding. Esophageal gastroduodenoscopy and colonoscopy performed on 11/10/2023. No upper gastrointestinal tract source of bleeding established. Colonoscopy suggests small bowel source of bleeding. Given that patient was no longer actively bleeding during the course of hospital stay, the red blood cell tagged nuclear medicine scan that I originally scheduled for 11/10/2023 was canceled. We continue to monitor for signs and symptoms of bleeding. Hemoglobin remained stable at 10 thereafter. After conferring with Dr. Dudley, oncologist, decision was made to reinitiate anticoagulation however with enoxaparin, which has a much shorter half life, and also reschedule the red blood cell tagged nuclear medicine scan for this coming 11/16/2023. Patient is instructed that if he starts to actively bleed before then that he is to have someone drive him to [facility] Emergency Department to be assessed and treated as warranted. Time Spent with Patient Time attestation: Total time spent providing and/or coordinating discharge services: Exam Narrative: Exam Narrative: I examine patient in his hospital room. Appears comfortable and in no acute distress. Vision and hearing are adequate. Alert and oriented x4. Friendly, articulate, cooperative. Lungs are clear to auscultation. Heart tones with regular rhythm. Abdomen with active bowel sounds, soft, nontender. Extremities without edema. Independent in transfer, station, and gait. Const: Vital Signs, click to edit/add: Vital Signs - 24 hr 11/10/23 19:00 11/10/23 23:00 11/10/23 23:00 Temperature 98.0 F 97.7 F Pulse Rate 67 Pulse Rate [Pulse Oximeter] 75 71 Respiratory Rate 18 18 Blood Pressure [Ri ght Arm] 133/86 137/75 Pulse Oximetry 100 95 Oxygen Delivery Me thod Room Air Room Air 11/11/23 03:00 11/11/23 07:00 11/11/23 07:00 Temperature 97.9 F 98.4 F Pulse Rate 64 Pulse Rate [Pulse Oximeter] 86 66 Respiratory Rate 18 16 Blood Pressure [Ri ght Arm] 123/79 136/75 Pulse Oximetry 95 97 Oxygen Delivery Me thod Room Air Room Air DS: Data Data Completed and Pending Completed studies during hospitalization: Procedures Inspection of Upper Intestinal Tract, Via Natural or Artificial Opening Endoscopic (10/29/23) Transfusion of Nonautologous Red Blood Cells into Peripheral Vein, Percutaneous Approach (10/29/23) Labs on day of discharge: Labs from last 24 hours 11/11/23 11/10/23 06:08 19:06 WBC 6.03 RBC 3.28 L Hgb 10.1 L 10.7 L Hct 31.5 L MCV 96 MCH 31 MCHC 32 Plt Count 278 INR 1.04 Sodium 133 L Potassium 4.4 Chloride 105 Carbon Dioxide 24 Anion Gap 4 L BUN 17 Creatinine 1.2 Estimated Creat Clear 56.27 Estimated GFR 65 Glucose 86 Calcium 9.2 Discharge Plan Discharge Disposition: Home, Self-Care Date of Admission: 11/09/23 14:47 Attending Provider on Discharge: Dylon Person Primary Care Provider: Martina Cid Condition: Improved Anticipated Discharge Date/Time: 11/11/23 11:30 Discharge Medications: New enoxaparin 80 mg/0.8 mL syringe 70 mg subcut Q12H Qty: 8 2RF Continued magnesium oxide 400 mg (241.3 mg magnesium) tablet 400 mg PO BID Qty: 100 3RF aspirin [Adult Low Dose Aspirin] 81 mg tablet,delayed release (DR/EC) 81 mg PO DAILY prochlorperazine maleate [Compazine] 5 mg tablet 5 mg PO TID PRN (Reason: nausea and vomiting) Qty: 90 0RF rosuvastatin 20 mg tablet 20 mg PO DAILY budesonide-formoterol [Symbicort] 80-4.5 mcg/actuation HFA aerosol inhaler 2 puff inhalation BID Qty: 30.6 1RF famotidine [Pepcid] 20 mg tablet 20 mg PO BID Qty: 180 0RF lisinopril 10 mg tablet 10 mg PO DAILY Patient Comments: TAKE 1 TABLET BY MOUTH EVERY DAY prednisone 10 mg tablet 10 mg PO DAILY PRN Rx Instructions: TAKES FOR A FEW DAYS AFTER CHEMO, LAST DOSE 10/22/23 ondansetron HCl 4 mg tablet 4 mg PO Q8H PRN (Reason: nausea and vomiting) tramadol 50 mg tablet 50 mg PO HS vitamin B complex Tablet 1 tab PO DAILY folic acid 1 mg tablet 1 mg PO DAILY albuterol sulfate [Ventolin HFA] 90 mcg/actuation HFA aerosol inhaler 2 inh inhalation Q4H PRN pantoprazole 40 mg tablet,delayed release (DR/EC) 40 mg PO DAILY Qty: 30 0RF calcium carbonate-vitamin D3 [Calcium 500 With D] 500 mg-10 mcg (400 unit) tablet 1 tab PO BID Qty: 90 3RF cyclobenzaprine 10 mg tablet 10 mg PO TID PRN (Reason: muscle spasm) Qty: 180 3RF gabapentin 100 mg capsule 100 mg PO HS Qty: 90 3RF levothyroxine 112 mcg tablet 112 mcg PO DAILY Qty: 90 3RF Discontinued Xarelto 20 mg tablet 20 mg PO QPM Rx Instructions: must administer with evening meal Discharge Orders: Discharge Order (Routine); Ordered 11/11/23 Ordered By: Dylon Person Patient Education: Enoxaparin (By injection), Gastrointestinal Bleeding (DC), Iron Rich Diet (DC), Anemia (DC), Venous Thromboembolism (DC) Additional Instructions: 1. Keep all appointments with oncology, including labs and radiology studies - they will inform you of tests and studies coming up, including the PET scan scheduled for tomorrow. 2. Continue to work with oncology. 3. Your oncologist will set up a Red Blood Cell Tagged Nuclear Medicine GI Bleed scan for next week, likely on Thursday 17 November 2023 - confer with your oncology team. 4. If you start passing blood per rectum again before your scheduled Red Blood Cell Tagged Nuclear Medicine GI Bleed scan, you will need to have someone drive you directly to a tertiary medical facility, such as [facility], for further evaluation and treatment. Activity Level: Activity as Tolerated Discharge Diet: Regular Follow Up Appointments: Martina Cid, KACIE, [employer] [Primary Care Provider] - Chartiy Dudley MD [Staff Physician] - 11/17/23 9:00 am Forms: [facility] Info Instructions
== END 2023-11-11 11:39 | disposition home or self-care (01) | DRG 812 ==
LOC: ED 13:04 → MEDSURG 13:54
PROVIDERS: Family Medicine; Internal Medicine; Admitting Provider Family Medicine; Emergency Provider Family Medicine; PCP Nurse Practitioner Family; Visit Provider Family Medicine
DX: D62 Acute posthemorrhagic anemia (principal); K92.1 Melena; C34.12 Malignant neoplasm of upper lobe, left bronchus or lung; C79.51 Secondary malignant neoplasm of bone; I82.C19 Acute embolism and thrombosis of unspecified internal jugular vein; T82.868A Thrombosis due to vascular prosthetic devices, implants and grafts, initial encounter; Z86.718 Personal history of other venous thrombosis and embolism; Z79.01 Long term (current) use of anticoagulants; G89.3 Neoplasm related pain (acute) (chronic); D61.810 Antineoplastic chemotherapy induced pancytopenia; D70.1 Agranulocytosis secondary to cancer chemotherapy; T45.1X5D Adverse effect of antineoplastic and immunosuppressive drugs, subsequent encounter; I73.9 Peripheral vascular disease, unspecified; J43.9 Emphysema, unspecified; R06.00 Dyspnea, unspecified; Z78.9 Other specified health status; E03.2 Hypothyroidism due to medicaments and other exogenous substances; Z95.820 Peripheral vascular angioplasty status with implants and grafts; Z91.81 History of falling; Z72.0 Tobacco use
CPT/HCPCS: 00813; 36415; 36430; 43235; 45378; 71045; 80048; 84132; 84484; 85018; 85027; 85610; 86850; 86900; 86901; 86922; 87635; 93005; 94761; 99100; 99285; 99291; A9270; J1650; J2470; J2704; J3490; J7050; P9016

== ENCOUNTER 2023-11-12 13:44 | Outpatient (CLI) | payer OTHER, SELFPAY ==
--- NOTE | 2023-11-12 14:00 | PE_ITS ---
[facility] [address] [address] Phone:?[phone] Fax:?[phone] Referring Physician Information: Charity Dudley M.D. [address] [facility] [address] Phone:?[phone] Fax:?[phone] Patient:Bello Palacios D.O.B:?1955 Sex:?Male Phone:?[phone] [facility] MRN:?[id number] Exam Date:?11/12/2023 EXAM: PET/CT EYES TO THIGHS, CANCER RESTAGING CLINICAL INFORMATION: Lung cancer, restaging. TECHNICAL INFORMATION: Helical acquisition of data was obtained from the orbits to the upper thighs with reconstruction of 3.75 mm thick images at 3.[address] data was used for attenuation correction. PET scanning was performed through the same anatomic range 57 minutes following administration of 11.64 mCi of 18-FDG delivered intravenously. The patient's glucose at the time of the injection was 107 mg/dL. PET, CT and PET/CT fusion images are interpreted using a computer viewing workstation. PET, CT and PET/CT fusion images were archived and saved in the patient's permanent medical record. COMPARISON: Head CT 08/06/2023 and prior exams INTERPRETATION: Head and Neck: There are no abnormal hypermetabolic foci within the head or neck. There is physiologic uptake in the intracranial soft tissues. Chest: Background mediastinal blood pool uptake has a mean SUV of 2.39. A few foci of radiotracer uptake along the left upper lobe pleura which have increased from the comparison exam. A focus of uptake along the left apicolateral pleural (fused image 83) with an SUV max of 9.77 (previously 6.6). A new focus of uptake posteriorly along the pleural surface (fused image 88) with an SUV max of 5.32. Another new focus of uptake along the ventrolateral aspect of a large bulla (fused image 103) with an SUV max of 10.34. A similar curvilinear opacity in the medial left upper lobe with mild FDG avidity and an SUV max of 4.68. No hypermetabolic lymphadenopathy. Large fluid component is now present in a bleb in the left upper lobe. Apparent postsurgical changes in the posterior left upper lobe region. Right chest wall annika catheter. Calcified mediastinal and right hilar lymph nodes. Calcified granuloma in the right lower lobe. Centrilobular emphysema. Upper lobe bulla. Ectatic ascending thoracic aorta measuring up to 4.0 cm. Coronary artery atherosclerosis. Abdomen and Pelvis: Background hepatic parenchymal uptake has a mean SUV of 2.83. There are no abnormal hypermetabolic foci within the abdomen or pelvis. There is physiologic excretion of radiotracer in the urine and bowel. Mildly distended gallbladder. No calcified gallstones. Infrarenal abdominal aortic aneurysm measuring up to 3.7 cm. Stent in the right common iliac artery. Postsurgical changes in the right lower quadrant region. Skeleton, Musculature, and Integument: No abnormal hypermetabolic foci within the skeleton. No guille osteoblastic or osteolytic disease. CONCLUSION: * A few new foci of FDG avidity in the peripheral left upper lobe concerning for worsening pleural metastasis. * A similar curvilinear opacity medially in the left upper lobe with low level radiotracer avidity which may be infectious or inflammatory in nature. Attention on follow-up imaging. * A new large fluid component within the left upper lobe bulla is nonspecific and of uncertain clinical significance. * No hypermetabolic lymphadenopathy. * No metastasis in the abdomen or pelvis. Electronically signed on 11/17/2023 9:37:00 AM by Samson Flores D.O
== END 2023-11-12 13:45 | disposition home or self-care (01) ==
LOC: RAD 13:45
PROVIDERS: PCP Nurse Practitioner Family; Visit Provider Internal Medicine Hematology & Oncology
DX: C34.12 Malignant neoplasm of upper lobe, left bronchus or lung (principal)
CPT/HCPCS: 78815; A9552

== ENCOUNTER 2023-11-17 07:50 | Outpatient (CLI) | payer OTHER, SELFPAY ==
--- NOTE | 2023-11-17 10:00 | CRLHL7_ITS ---
For Patients: As a result of the Century Cures Act, medical imaging exams and procedure reports are released immediately into your electronic medical record. You may view this report before your referring provider. If you have questions, please contact your health care provider. Indication: Acute blood loss, anemia. Recent hospitalization bloody stools, resolved since last week Technique: Nuclear medicine GI bleed scan after the intravenous administration of 22.5 millicuries technetium 99 M ultra tag Comparison: CT abdomen and pelvis 09/20/2023 Findings: Intermittent imaging up to 60 minutes demonstrates physiologic activity. Impression: Normal study. Dictated by Homero Smalls MD @ 11/17/2023 3:06:36 PM (Electronically Signed)
== END 2023-11-17 07:51 | disposition home or self-care (01) ==
PROVIDERS: PCP Nurse Practitioner Family; Visit Provider Surgery
DX: D62 Acute posthemorrhagic anemia (principal); K92.2 Gastrointestinal hemorrhage, unspecified
CPT/HCPCS: 78278; A9512

== ENCOUNTER 2023-11-19 14:40 | Outpatient (CLI) | payer OTHER, SELFPAY ==
--- NOTE | 2023-11-19 15:00 | CRLHL7_ITS ---
For Patients: As a result of the Century Cures Act, medical imaging exams and procedure reports are released immediately into your electronic medical record. You may view this report before your referring provider. If you have questions, please contact your health care provider. INDICATION: Follow-up right internal jugular vein thrombosis. TECHNIQUE: CT of the neck with 78 cc Isovue 370 iodinated contrast agent. COMPARISON: Neck CT from 10/16/2023. FINDINGS: Nasopharynx: Within normal limits. Oropharynx: Within normal limits. Oral cavity: Within normal limits. Supraglottic, glottic and infraglottic larynx: Within normal limits. Hypopharynx: Within normal limits. Airway including the trachea: Within normal limits. Salivary glands and thyroid gland: Within normal limits. Lymph nodes and other cervical soft tissues: Within normal limits. Vascular Structures: Right-sided MediPort catheter entering the SVC. The SVC and left brachiocephalic vein remain patent. The left internal jugular vein is patent. There is thrombosis of the right internal jugular vein throughout its course to the level of the skull base. Atherosclerotic changes aortic arch and carotid bulbs. Osseous structures: No acute fractures. Multilevel cervical disc degeneration. Uncovertebral/facet arthrosis with high-grade neural foraminal stenosis at C3-4 on the right, and [id number] elsewhere. No CT visualized high-grade cervical/upper thoracic spinal canal stenosis. Paranasal sinuses and mastoid air cells: A right mastoid effusion. Left mastoid air cells and paranasal sinuses are clear. Teeth: Within normal limits. Imaged orbits and intracranial contents: Within normal limits. Imaged chest wall, mediastinum and upper lungs: Biapical pneumatoceles with a left sided pneumatocele demonstrating an air-fluid level with dependent frothy material. IMPRESSION: 1. No significant change compared to examination from 10/16/2023. Persistent thrombosis of the right internal jugular vein throughout its course. Right sided MediPort catheter tip extends into the SVC, which remains patent. Left internal jugular vein is patent. 2. Other chronic findings as above. Please note that all CT scans at this facility use dose modulation, iterative reconstruction, and/or weight-based dosing when appropriate to reduce radiation dose to as low as reasonably achievable. Dictated by Rock Porter MD @ 11/23/2023 8:23:49 AM (Electronically Signed)
== END 2023-11-19 14:41 | disposition home or self-care (01) ==
LOC: CT 14:41
PROVIDERS: PCP Nurse Practitioner Family; Visit Provider Clinical Nurse Specialist
DX: T82.868A Thrombosis due to vascular prosthetic devices, implants and grafts, initial encounter (principal)
CPT/HCPCS: 70491; Q9967

== ENCOUNTER 2024-02-16 09:57 | Inpatient (IN) | payer OTHER, SELFPAY ==
[2024-02-16] VITALS (28 sets, daily range): BP systolic 108–153; BP diastolic 51–109; PULSE 61–87; RESP 14–18; TEMP 35.9–36.9; O2SAT 92–98; BMI 19.8; BMI 21.1
--- NOTE | 2024-02-16 10:14 | ED_ITS ---
HPI - GI Bleed General Time Seen by Provider: 10:14 Date Seen: 02/16/24 Chief complaint: GI Bleed Stated complaint: Dark stool Time Seen by Provider: 02/16/24 10:13 Source: patient, RN notes reviewed and old records reviewed Mode of arrival: ambulatory Limitations: no limitations History of Present Illness HPI Narrative: 68-year-old male sent from cancer clinic with anemia and concern for GI bleed. Patient has history of anemia, received a blood transfusion last week for hemoglobin 8.4. Previously had received blood transfusions earlier in the year related to suspected GI bleed, on colonoscopy November 09, inadequate prep and hematin throughout the entire colon and terminal ileum indicating a likely small bowel hemorrhage. Patient an EGD 10/29/2023 without evidence of bleeding the esophagus or stomach and no varices. Patient noted dark stools today, has felt weak and lightheaded for the last week or so. No abdominal pain, no nausea vomiting. No chest pain, does have some shortness of breath with activity. Also notes he had stool testing done last week which was guaiac positive, notes that his stool is got darker since then. Related Data Home Medications ?Medication ?Instructions ?Recorded ?Confirmed aspirin 81 mg tablet,delayed 81 mg PO DAILY 08/26/23 01/27/24 release (Adult Low Dose Aspirin) rosuvastatin 20 mg tablet 20 mg PO DAILY 09/22/23 01/27/24 albuterol sulfate 90 mcg/actuation 2 inh inhalation Q4H PRN 10/29/23 01/27/24 aerosol inhaler (Ventolin HFA) folic acid 1 mg tablet 1 mg PO DAILY 10/29/23 01/27/24 vitamin B complex 1 tab PO DAILY 10/29/23 01/27/24 cyclobenzaprine 10 mg tablet 10 mg PO DAILY muscle spasm 12/09/23 01/27/24 Previous Rx's ?Medication ?Instructions ?Recorded calcium 500 mg (as 1 tab PO BID #90 tabs 05/18/23 carbonate)-vitamin D3 10 mcg (400 unit) tablet (Calcium 500 With D) levothyroxine 125 mcg tablet 125 mcg PO DAILY #30 tabs 11/17/23 famotidine 20 mg tablet (Pepcid) 20 mg PO BID #180 tabs 12/09/23 pantoprazole 40 mg tablet,delayed 40 mg PO DAILY #90 tabs 01/05/24 release Symbicort 80 mcg-4.5 mcg/actuation 2 puff inhalation BID #30.6 grams 01/25/24 HFA aerosol inhaler (budesonide-formoterol) tramadol 50 mg tablet 50 mg PO HS pain #60 tabs 01/25/24 apixaban 5 mg tablet (Eliquis) 5 mg PO BID #60 tabs 01/27/24 gabapentin 100 mg capsule 100 mg PO HS #90 caps 01/27/24 magnesium oxide 400 mg (241.3 mg 400 mg PO BID #100 tabs 01/27/24 magnesium) tablet ondansetron HCl 4 mg tablet 4 mg PO Q8H PRN nausea and 01/27/24 vomiting #60 tabs prochlorperazine maleate 5 mg 5 mg PO TID PRN nausea and 01/27/24 tablet (Compazine) vomiting #90 tabs prednisone 10 mg tablet 10 mg PO DAILY #30 tabs 02/04/24 Allergies Allergy/AdvReac Type Severity Reaction Status Date / Time carboplatin Allergy Severe Anaphylaxis Verified 02/10/24 09:15 [facility] Medical History (Updated 02/16/24 @ 10:35 by Damien Stapleton MD) Internal jugular (IJ) vein thromboembolism, acute ?I82.C19 - Acute embolism and thrombosis of unspecified internal jugular vein (ICD-10) Anemia ?D64.9 - Anemia, unspecified (ICD-10) Chronic anticoagulation ?Z79.01 - half-way (current) use of anticoagulants (ICD-10) Encounter for immunotherapy ?Z29.8 - Encounter for other specified prophylactic measures (ICD-10) Encounter for chemotherapy management ?Z51.11 - Encounter for antineoplastic chemotherapy (ICD-10) Anemia associated with chemotherapy ?D64.81 - Anemia due to antineoplastic chemotherapy (ICD-10) ?T45.1X5A - Adverse effect of antineoplastic and immunosuppressive drugs, initial encounter (ICD-10) Chemotherapy induced neutropenia ?D70.1 - Agranulocytosis secondary to cancer chemotherapy (ICD-10) ?T45.1X5A - Adverse effect of antineoplastic and immunosuppressive drugs, initial encounter (ICD-10) Insomnia ?G47.00 - Insomnia, unspecified (ICD-10) PVD (peripheral vascular disease) ?I73.9 - Peripheral vascular disease, unspecified (ICD-10) Infusion reaction ?T80.90XA - Unspecified complication following infusion and therapeutic injection, initial encounter (ICD-10) 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 - Hypothyroidism due to medicaments and other exogenous substances (ICD-10) Dyspnea ?R06.00 - Dyspnea, unspecified (ICD-10) Bilateral leg cramps ?R25.2 - Cramp and spasm (ICD-10) Hyperkalemia ?E87.5 - Hyperkalemia (ICD-10) Cervical spinal stenosis ?M48.02 - Spinal stenosis, cervical region (ICD-10) Central venous catheter in place ?Z78.9 - Other specified health status (ICD-10) Cancer associated pain ?G89.3 - Neoplasm related pain (acute) (chronic) (ICD-10) Emphysema/COPD ?J43.9 - Emphysema, unspecified (ICD-10) Dermatitis ?L30.9 - Dermatitis, unspecified (ICD-10) Colon polyp ?K63.5 - Polyp of colon (ICD-10) Tobacco use disorder ?F17.200 - Nicotine dependence, unspecified, uncomplicated (ICD-10) Surgical History (Updated 10/29/23 @ 21:05 by Renetta Aguirre MD) S/P angioplasty with stent ?Z95.820 - Peripheral vascular angioplasty status with implants and grafts (ICD-10) S/P hernia repair ?Z98.890 - Other specified postprocedural states (ICD-10) ?Z87.19 - Personal history of other diseases of the digestive system (ICD-10) History of appendectomy ?Z90.49 - Acquired absence of other specified parts of digestive tract (ICD- 10) H/O colonoscopy ?Z98.890 - Other specified postprocedural states (ICD-10) Social History (Updated 10/29/23 @ 19:47 by Renetta Aguirre MD) Narrative: Partnered to Renetta for many years, she would be medical decision maker if needed. Worked for [employer] for many years. Smoker (down from 2ppd to 5 cigarettes/day in 2023). Rare social ETOH. DNR/DNI; otherwise requests full medical treatment and amenable to transfer if needed What is your current living situation?: I presently have a place to live Problems where you live: no known problems Problems where you live details: none In the past 12 months, utilities in danger of being shut off: no In the past 12 mos, have been you worried that your food would run out before you had money to buy more?: never true In the past 12 mos, the food you bought just didn't last and you didn't have money to buy more?: never true Highest level of school completed/degree received: Bachelor's degree Smoking Status: Current every day smoker What tobacco products do you use: cigarettes Smoking packs per day: 0.25 Smoking cigarettes per day: 5.0 Smoking quit date/years: <= 15 years ago Do you use any of these nicotine containing products: None Second hand tobacco smoke exposure: No How often do you have a drink containing alcohol: monthly or less Alcohol type: beer, wine and hard liquor How many standard drinks containing alcohol do you have on a typical day: 1 or 2 How often do you have six or more drinks on one occasion: Never AUDIT-C Alcohol total score: 1 Non-prescribed substance use: denies use Caffeine: Yes (coffee) How often does anyone, including family, friends and others, physically hurt you : never How often does anyone, including family, friends and others, insult or talk down to you: never How often does anyone, including family, friends and others, threaten you with harm: never How often does anyone, including family, friends and others, scream or curse at you: never service: No Exam Narrative: Exam Narrative: General: Well-developed and well-nourished, no acute distress Head: Atraumatic and normocephalic Eyes: Pupils are equal reactive, extraocular motions intact, conjunctiva clear ENT: External nose and ears are normal, posterior pharynx without erythema or exudate Neck: No midline cervical tenderness, full spontaneous range of motion the neck, trachea midline, no adenopathy Heart: Regular rate and rhythm no murmurs or thrills Lungs: Clear to auscultation bilaterally without wheezes or crackles Abdomen: Soft, nontender, nondistended with active bowel sounds Musculoskeletal: No tenderness, deformity, or edema Neurologic: Awake, alert, and oriented x3, no gross focal neurologic deficits, cranial nerves intact as tested Psych: Mood and affect are appropriate Skin: No rashes Const: Vital Signs, click to edit/add: Vital Signs - 24 hr 02/16/24 10:05 02/16/24 10:06 02/16/24 10:06 Temperature 96.7 F L Pulse Rate 87 75 Pulse Rate [Pulse Oximeter] 68 Respiratory Rate 16 16 Blood Pressure 139/71 Blood Pressure [Ri ght Upper Arm] 139/71 Pulse Oximetry 95 98 97 Oxygen Delivery Me thod Room Air 02/16/24 10:15 Temperature Pulse Rate 61 Pulse Rate [Pulse Oximeter] Respiratory Rate Blood Pressure Blood Pressure [Ri ght Upper Arm] Pulse Oximetry 98 Oxygen Delivery Me thod Course Course ED Course: Patient seen and examined, reviewed most recent office visit from December 14 which was routine physical at which time patient was noted to be receiving immu notherapy for stage IV lung cancer, also history of DVT, was on Eliquis at that time. Also history of GI bleed and anemia. At the time of that visit, hemoglobin was stable. Reviewed labs from Oncology Clinic, hemoglobin today is 7.3, 8.4 on February 09 and patient was given 1 unit of packed blood cells. Also reviewed prior admission from October when patient had EGD and colonoscopy both of which were negative for source of acute bleeding and felt that bleeding was from small intestine. Patient presents today with dark stools as well as low hemoglobin, lightheadedness, shortness of breath with exertion, generalized weakness. On exam, patient is finally stable, pleasant, no abdominal pain or tenderness. Labs done at outside clinic reviewed with hemoglobin 7.3, no other labs done today. Additional labs ordered, consent for blood transfusion signed in anticipate admission. Reevaluation(s) Time of Reevaluation #1: 10:52 Reevaluation #1: Care discussed with Zeenat Xie PA-C hospitalist who accepts the patient for admission pending labs. Time of Reevaluation #2: 11:04 Reevaluation #2: Labs independently interpreted by me with normal basic panel, EKG independently interpreted by me reassuring. Patient is stable for admission. EKG ordered and panel interpreted by me demonstrates sinus rhythm with PAC rate 66, incomplete right bundle-branch block, no acute ST elevations or depressions, normal axis, QTC 465, LA 156. No change from prior of October 2023. Vital Signs Vital signs: Initial Vital Signs Pulse Rate 87 02/16/24 10:05 Pulse Oximetry 95 02/16/24 10:05 Vital Signs Pulse Rate 87 02/16/24 10:05 Pulse Oximetry 95 02/16/24 10:05 Temperature 96.7 F L 02/16/24 10:06 Pulse Rate 61 02/16/24 10:15 Respiratory Rate 16 02/16/24 10:06 Blood Pressure 139/71 02/16/24 10:06 Pulse Oximetry 98 02/16/24 10:15 Oxygen Delivery Method Room Air 02/16/24 10:06 MDM - GI Bleed Lab Data Labs: Lab Results 02/16/24 Range/Units 08:56 Sodium 134 L (135-149) mmol/L Potassium 4.7 (3.6-5.1) mmol/L Chloride 103 (96-114) mmol/L Carbon Dioxide 24 (20-32) mmol/L Anion Gap 7 (7-15) mEq/L BUN 34 H (7-30) mg/dL Creatinine 1.4 (0.5-1.5) mg/dL Estimated Creat Clear 47.25 Estimated GFR 54 ml/min Glucose 99 (60-115) mg/dL Calcium 9.4 (8.4-10.6) mg/dL Magnesium 2.4 (1.5-2.6) mg/dL Critical Care Time Critical Care Time Critical Care Time: Yes Attestation: The patient required my highest level preparedness to intervene emergently and I personally spent this critical care time directly and personally managing the patient. This critical care time included: Obtaining a history; Examining the patient; Pulse oximetry; Ordering and reviewing of studies; Arranging urgent treatment with development of a management plan; Evaluation of patients response to treatment; Frequent reassessment discussions with other providers. This critical care time was performed to assess and manage the high probability of imminent life-threatening deterioration that could result in multiorgan failure. It was exclusive of separate billable procedures and treating other patients and teaching time. 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, Chronic anticoagulation, GI (gastrointestinal bleed), Symptomatic anemia Prescriptions: No Action famotidine [Pepcid] 20 mg tablet 20 mg PO BID Qty: 180 3RF aspirin [Adult Low Dose Aspirin] 81 mg tablet,delayed release (DR/EC) 81 mg PO DAILY rosuvastatin 20 mg tablet 20 mg PO DAILY levothyroxine 125 mcg tablet 125 mcg PO DAILY Qty: 30 3RF pantoprazole 40 mg tablet,delayed release (DR/EC) 40 mg PO DAILY Qty: 90 3RF ondansetron HCl 4 mg tablet 4 mg PO Q8H PRN (Reason: nausea and vomiting) Qty: 60 0RF prochlorperazine maleate [Compazine] 5 mg tablet 5 mg PO TID PRN (Reason: nausea and vomiting) Qty: 90 0RF gabapentin 100 mg capsule 100 mg PO HS Qty: 90 3RF Eliquis 5 mg tablet 5 mg PO BID Qty: 60 1RF magnesium oxide 400 mg (241.3 mg magnesium) tablet 400 mg PO BID Qty: 100 3RF vitamin B complex Tablet 1 tab PO DAILY folic acid 1 mg tablet 1 mg PO DAILY albuterol sulfate [Ventolin HFA] 90 mcg/actuation HFA aerosol inhaler 2 inh inhalation Q4H PRN cyclobenzaprine 10 mg tablet 10 mg PO DAILY calcium carbonate-vitamin D3 [Calcium 500 With D] 500 mg-10 mcg (400 unit) tablet 1 tab PO BID Qty: 90 3RF budesonide-formoterol [Symbicort] 80-4.5 mcg/actuation HFA aerosol inhaler 2 puff inhalation BID Qty: 30.6 1RF tramadol 50 mg tablet 50 mg PO HS Qty: 60 0RF prednisone 10 mg tablet 10 mg PO DAILY Qty: 30 0RF Rx Instructions: Take in the morning with food. Follow Up/Referrals: Mikal Gunter MD [Primary Care Provider] -
[2024-02-16 10:56] LABS: Chloride* 103 mmol/L (96-114); Potassium* 4.7 mmol/L (3.6-5.1); Sodium* 134 mmol/L (135-149)
[2024-02-16 10:59] LABS: Creatinine* 1.4 mg/dL (0.5-1.5); Est. Creatinine Clearance* 47.25; Estimated Glomerular Filt Rate 54 ml/min
[2024-02-16 11:00] LABS: Anion Gap 7 mEq/L (7-15); Blood Urea Nitrogen* 34 mg/dL (7-30); Calcium* 9.4 mg/dL (8.4-10.6); Carbon Dioxide* 24 mmol/L (20-32); Glucose* 99 mg/dL (60-115); Magnesium* 2.4 mg/dL (1.5-2.6)
[2024-02-16 11:20] LABS: INR 1.29 (0.91-1.10); Prothrombin Time 16.9 Seconds
[2024-02-16 11:45] LABS: Appearance Urine Clear (Clear); Bilirubin Urine Negative (Negative); Blood Urine Negative (Negative); Color Urine Yellow (Yellow); Glucose Urine Negative (Negative); Ketones Urine Negative (Negative); Leukocyte Esterase Urine Negative (Negative); Nitrite Urine Negative (Negative); Protein Urine Negative (Negative); Specific Gravity Urine 1.015 (1.000-1.030); Urobilinogen Urine 0.2 (0.2-1.0)
--- NOTE | 2024-02-16 11:54 | CRLHL7_ITS ---
For Patients: As a result of the Century Cures Act, medical imaging exams and procedure reports are released immediately into your electronic medical record. You may view this report before your referring provider. If you have questions, please contact your health care provider. Indication: Difficulty swallowing, known internal jugular vein thrombosis. Technique: Contrast-enhanced CT of the neck with multiplanar reconstruction utilizing 76 cc Isovue 370 iodinated intravenous contrast. Comparison: CT soft tissue neck dated 11/19/2023. Findings: No suspicious mucosal based mass enhancement. No pathologically enlarged cervical lymph nodes. Normal parotid and submandibular glands. Atrophic thyroid. Partially imaged right implantable MediPort coursing appropriately within the right internal jugular and brachiocephalic veins. Unchanged non opacification of the right internal jugular vein superiorly, with reconstitution at the sigmoid sinus. Stable small right mastoid effusion. Centrilobular emphysema at the lung apices with apical bullae. Similar posttreatment changes at the left lung apex. Impression: 1. No interval change since 11/19/2023. 2. No suspicious mucosal based mass or enhancement. 3. No pathologically enlarged cervical lymph nodes. 4. Redemonstrated thrombosis of the right internal jugular vein. 5. As before, centrilobular emphysema within the imaged lung vance with posttreatment changes at the left lung apex. Please note that all CT scans at this facility use dose modulation, iterative reconstruction, and/or weight-based dosing when appropriate to reduce radiation dose to as low as reasonably achievable. Dictated by Lon Hickey MD @ 02/16/2024 3:43:41 PM (Electronically Signed)
[2024-02-16 11:56] LABS: RBC Urine 0-2 (0-2); WBC Urine 0-2 (0-5)
--- NOTE | 2024-02-16 12:00 | PM.IMHP1 ---
Hospitalist- H&P: HPI History of Present Illness Date Seen: 02/16/24 Chief complaint: Dark stool Narrative: Osbaldo Palacios is a 68 year old male who presented to the emergency room today at the behest of our Oncology team for recurrent symptomatic anemia. He has a history of non-small cell lung carcinoma (diagnosed 02/2021) and a Right IJ thrombosis (diagnosed summer 2023). He is currently anticoagulated on apixaban. He was hospitalized for anemia in October 2023; at that time a GI bleed workup was performed. Reassuring endoscopy, colonoscopy exhibited coffee grounds in the terminal ileum, concerning for a bleed in the small intestine. Subsequent nuclear med scan performed in November of 2023, nondiagnostic. Librado is currently on pantoprazole and famotidine. Has noted darker stools over the past few weeks and is weaker than baseline. No chest pain, + DAHL. On 01/27/24, Hgb was 7.5. Transfused 1U PRBCs at that time and Hgb improved to 9.8. This morning, his hemoglobin was drawn at [facility] and was found to be 7.3. He is admitted to the hospital for blood transfusion and Hgb monitoring in the setting of recurrent blood loss anemia with need for anticoagulation given chronic right IJ thrombosis. Review of Systems Narrative: - notes difficulty with laying flat (feels like he cannot swallow. No odynophagia or dysphagia when sitting upright and eating normally) - weight loss, approximately 7 pounds in the past few weeks - mild paresthesias bilateral feet, noted over the past week or so - no recent falls - dry nose, + stuffiness. Using Flonase in the mornings [facility] Medical History (Updated 02/16/24 @ 12:46 by Renetta Aguirre MD) Internal jugular vein thrombosis ?I82.C19 - Acute embolism and thrombosis of unspecified internal jugular vein (ICD-10) Chronic anticoagulation ?Z79.01 - USP (current) use of anticoagulants (ICD-10) Encounter for immunotherapy ?Z29.8 - Encounter for other specified prophylactic measures (ICD-10) Encounter for chemotherapy management ?Z51.11 - Encounter for antineoplastic chemotherapy (ICD-10) Anemia associated with chemotherapy ?D64.81 - Anemia due to antineoplastic chemotherapy (ICD-10) ?T45.1X5A - Adverse effect of antineoplastic and immunosuppressive drugs, initial encounter (ICD-10) Chemotherapy induced neutropenia ?D70.1 - Agranulocytosis secondary to cancer chemotherapy (ICD-10) ?T45.1X5A - Adverse effect of antineoplastic and immunosuppressive drugs, initial encounter (ICD-10) Insomnia ?G47.00 - Insomnia, unspecified (ICD-10) PVD (peripheral vascular disease) ?I73.9 - Peripheral vascular disease, unspecified (ICD-10) Infusion reaction ?T80.90XA - Unspecified complication following infusion and therapeutic injection, initial encounter (ICD-10) 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 - Hypothyroidism due to medicaments and other exogenous substances (ICD-10) Dyspnea ?R06.00 - Dyspnea, unspecified (ICD-10) Bilateral leg cramps ?R25.2 - Cramp and spasm (ICD-10) Cervical spinal stenosis ?M48.02 - Spinal stenosis, cervical region (ICD-10) Central venous catheter in place ?Z78.9 - Other specified health status (ICD-10) Cancer associated pain ?G89.3 - Neoplasm related pain (acute) (chronic) (ICD-10) Emphysema/COPD ?J43.9 - Emphysema, unspecified (ICD-10) Dermatitis ?L30.9 - Dermatitis, unspecified (ICD-10) Colon polyp ?K63.5 - Polyp of colon (ICD-10) Tobacco use disorder ?F17.200 - Nicotine dependence, unspecified, uncomplicated (ICD-10) Surgical History (Updated 10/29/23 @ 21:05 by Renetta Aguirre MD) S/P angioplasty with stent ?Z95.820 - Peripheral vascular angioplasty status with implants and grafts (ICD-10) S/P hernia repair ?Z98.890 - Other specified postprocedural states (ICD-10) ?Z87.19 - Personal history of other diseases of the digestive system (ICD-10) History of appendectomy ?Z90.49 - Acquired absence of other specified parts of digestive tract (ICD-10) H/O colonoscopy ?Z98.890 - Other specified postprocedural states (ICD-10) Social History (Updated 02/16/24 @ 12:37 by Renetta Aguirre MD) Narrative: Partnered to Renetta for many years, she would be medical decision maker if needed. Worked for [employer] for many years. Smoker (down from 2ppd to 5 cigarettes/day in February 2024). Rare social ETOH. Full Code but requests no long-term intubation. What is your current living situation?: I presently have a place to live Problems where you live: no known problems Problems where you live details: none In the past 12 months, utilities in danger of being shut off: no In the past 12 mos, have been you worried that your food would run out before you had money to buy more?: never true In the past 12 mos, the food you bought just didn't last and you didn't have money to buy more?: never true Highest level of school completed/degree received: Bachelor's degree Smoking Status: Current every day smoker What tobacco products do you use: cigarettes Smoking packs per day: 0.25 Smoking cigarettes per day: 5.0 Smoking quit date/years: <= 15 years ago Do you use any of these nicotine containing products: None Second hand tobacco smoke exposure: No How often do you have a drink containing alcohol: monthly or less Alcohol type: beer, wine and hard liquor How many standard drinks containing alcohol do you have on a typical day: 1 or 2 How often do you have six or more drinks on one occasion: Never AUDIT-C Alcohol total score: 1 Non-prescribed substance use: denies use Caffeine: Yes (coffee) How often does anyone, including family, friends and others, physically hurt you: never How often does anyone, including family, friends and others, insult or talk down to you: never How often does anyone, including family, friends and others, threaten you with harm: never How often does anyone, including family, friends and others, scream or curse at you: never service: No Meds Home Medications and Allergies Home Medications ?Medication ?Instructions ?Recorded ?Confirmed ?Type aspirin 81 mg tablet,delayed 81 mg PO DAILY 08/26/23 02/16/24 History release (Adult Low Dose Aspirin) rosuvastatin 20 mg tablet 20 mg PO DAILY 09/22/23 02/16/24 History albuterol sulfate 90 mcg/actuation 2 inh inhalation Q4H PRN 10/29/23 02/16/24 History aerosol inhaler (Ventolin HFA) folic acid 1 mg tablet 1 mg PO DAILY 10/29/23 02/16/24 History vitamin B complex 1 tab PO DAILY 10/29/23 02/16/24 History cyclobenzaprine 10 mg tablet 10 mg PO DAILY muscle spasm 12/09/23 02/16/24 History Allergies Allergy/AdvReac Type Severity Reaction Status Date / Time carboplatin Allergy Severe Anaphylaxis Verified 02/10/24 09:15 Exam Narrative: Exam Narrative: GEN: Alert and oriented, laying comfortably in bed HEENT: Normal external ears, EOMIs bilaterally, no scleral icterus CV: RRR, No concerning murmurs, rubs, or gallops R: LCTA bilaterally without concerning wheezing, rales, or rhonchi Ext: wwp, no concerning edema Skin: No concerning skin lesions or rashes on exposed skin Neuro: Nonfocal Psych: Appropriate Const: Vital Signs, click to edit/add: Vital Signs - 24 hr 02/16/24 10:05 02/16/24 10:06 02/16/24 10:06 Temperature 96.7 F L Pulse Rate 87 75 Pulse Rate [Pulse Oximeter] 68 Respiratory Rate 16 16 Blood Pressure 139/71 Blood Pressure [Le ft Arm] Blood Pressure [Ri ght Upper Arm] 139/71 Pulse Oximetry 95 98 97 Oxygen Delivery Me thod Room Air 02/16/24 10:15 02/16/24 10:30 02/16/24 10:33 Temperature Pulse Rate 61 85 72 Pulse Rate [Pulse Oximeter] Respiratory Rate Blood Pressure 153/109 H Blood Pressure [Le ft Arm] Blood Pressure [Ri ght Upper Arm] Pulse Oximetry 98 92 94 Oxygen Delivery Me thod 02/16/24 10:45 02/16/24 11:00 02/16/24 11:02 Temperature Pulse Rate 66 62 66 Pulse Rate [Pulse Oximeter] Respiratory Rate 16 Blood Pressure 124/64 Blood Pressure [Le ft Arm] Blood Pressure [Ri ght Upper Arm] Pulse Oximetry 96 92 Oxygen Delivery Me thod 02/16/24 11:15 02/16/24 11:55 Temperature 97.5 F L Pulse Rate 62 Pulse Rate [Pulse Oximeter] 76 Respiratory Rate 18 Blood Pressure Blood Pressure [Le ft Arm] 151/67 H Blood Pressure [Ri ght Upper Arm] Pulse Oximetry 94 93 Oxygen Delivery Me thod Room Air Hospitalist - H&P: Result Labs Labs: [facility] 02/16/24 08:56 Sodium 134 L Potassium 4.7 Chloride 103 Carbon Dioxide 24 BUN 34 H Creatinine 1.4 Glucose 99 Calcium 9.4 Urine 02/16/24 Range/Units 11:35 Urine Color Yellow (Yellow) Urine Appearance Clear (Clear) Urine pH 7.0 (5.0-8.5) Ur Specific [place] 1.015 (1.000-1.030) Urine Protein Negative (Negative) Urine Glucose (UA) Negative (Negative) Assessment and Plan Assessment and plan (1) Symptomatic anemia: Problem comment: - presumably 2/2 acute blood loss, likely GI bleed in the setting of anticoagulation - positive Hemoccult 01/2024 - previous workup 11/06: reassuring EGD, colonoscopy limited by poor prep, + coffee ground substance in terminal ileum, negative nuclear med scan November 2023 - needs anticoagulation for chronic IJ thrombosis (will evaluate this with scan today) - transition from Eliquis to therapeutic dose Lovenox during stay - plan pending imaging today and response to blood transfusion - follow hemoglobin - consider repeat EGD pending clinical course Status: Acute (2) Internal jugular vein thrombosis: Problem comment: - diagnosed October 2023, R - given concerns with swallowing while laying flat, we will repeat his soft tissue neck CT to evaluate - may have an anatomical reason for symptoms (cancer progression, thrombosis progression) Status: Acute (3) 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 Dudley of Oncology - currently receiving palliative alimta +durvalumab, most recent treatment 02/04/24 Status: Acute (4) PVD (peripheral vascular disease): Problem comment: - 10/01/23: Status post right SFA to P1 segment angioplasty and stenting at [place] with Dr. 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
--- NOTE | 2024-02-16 15:15 | PC.NURSE ---
End of Shift: Patient pleasant and cooperative, A&O. VSS, afebrile. SpO2 maintained above 90% on RA. Patient reports feeling SOB this shift. 1 unit blood transfused this shift, no reactions noted, VSS. Patient denies pain this shift. SBA with gait belt. Tolerating regular diet.
[2024-02-16 17:15] LABS: Hemoglobin* 7.9 gm/dL (13.5-17.5)
[2024-02-16] MEDS: ALBUTEROL INHALER 2 PUFF IH (18:06)
[2024-02-16] MEDS: TRAMADOL HCL 50 MG TABLET PO (21:12)
[2024-02-16] MEDS: ENOXAPARIN 80 MG/0.8 ML INJ 70 MG SUBCUT (21:12)
[2024-02-16] MEDS: GABAPENTIN 100 MG CAPSULE PO (21:12)
[2024-02-16] MEDS: FAMOTIDINE 20 MG TABLET PO (21:12)
[2024-02-16] MEDS: MAGNESIUM OXIDE 400 MG TABLET PO (21:12)
[2024-02-16] MEDS: SODIUM CHLORIDE 0.9 % (FLUSH) 10 ML SYRINGE 5 ML IVF (21:12)
--- NOTE | 2024-02-16 23:19 | PC.NURSE ---
End of Shift: Patient pleasant and cooperative. Afebrile. Denies pain. Up with SBA. Tolerating regular diet with no nausea. No BM this shift. 1 unit of PRBC infused without difficulty and no s/s of reaction noted. Patient states that shortness of breath has improved some since before blood administration.
[2024-02-17] VITALS (10 sets, daily range): BP systolic 107–166; BP diastolic 64–93; PULSE 61–77; RESP 16–18; TEMP 36.3–36.9; O2SAT 92–94; BMI 21.0
[2024-02-17] MEDS: OMEPRAZOLE 20 MG CAPSULE DR 40 MG PO ×2 (05:39→21:37)
[2024-02-17] MEDS: LEVOTHYROXINE 125 MCG TABLET PO (06:36)
--- NOTE | 2024-02-17 06:54 | PC.NURSE ---
Pt alert, oriented and vitally stable. Pt denies SOB, dizziness and weakness. Pt refused SCD and Teds. Pt appears to be resting comfortably, call light within reach.?
[2024-02-17 07:55] LABS: Albumin* 3.4 g/dL (3.3-5.0); Chloride* 107 mmol/L (96-114); Potassium* 4.1 mmol/L (3.6-5.1); Sodium* 136 mmol/L (135-149)
[2024-02-17 07:57] LABS: Creatinine* 1.1 mg/dL (0.5-1.5); Est. Creatinine Clearance* 62.32; Estimated Glomerular Filt Rate 72 ml/min
[2024-02-17 07:58] LABS: Alanine Aminotransferase* 42 U/L (4-50); Alkaline Phosphatase* 79 U/L (40-150); Anion Gap 5 mEq/L (7-15); Aspartate Amino Transferase* 31 U/L (12-35); Bilirubin Total* 0.5 mg/dL (0.1-1.5); Blood Urea Nitrogen* 23 mg/dL (7-30); Carbon Dioxide* 24 mmol/L (20-32); Glucose* 82 mg/dL (60-115); Total Protein* 5.6 g/dL (6.0-8.3)
[2024-02-17 08:11] LABS: White Blood Count* 4.43 K/uL (4.50-11.00)
[2024-02-17 08:12] LABS: Hematocrit 27.7 % (37.0-53.0); Hemoglobin* 8.9 gm/dL (13.5-17.5); Mean Corpuscular HGB Conc 32 gm/dL (32-36); Mean Corpuscular Hemoglobin 31 pg (26-34); Mean Corpuscular Volume 96 fL (80-100); Platelet Count* 146 K/uL (140-440); RDW Coefficient of Variation % 18.3 % (11.5-15.5); Red Blood Count 2.89 m/uL (4.30-5.90)
[2024-02-17 08:13] LABS: Basophils Percent Auto 0.5 % (0.0-3.0); Eosinophils Percent Auto 2.8 % (0.0-7.0); Immature Granulocytes Pct Auto 0.5 %; Lymphocytes Percent Auto 46.1 % (20-44); Monocytes Percent Auto 17.1 % (0.0-11.0)
[2024-02-17 08:14] LABS: Basophils Absolute Auto 0.02 K/uL (0.00-0.30); Eosinophils Absolute Auto 0.12 K/uL (0.00-0.50); Immature Granulocytes Abs Auto 0.02 K/uL (0.00-0.30); Monocytes Absolute Auto 0.74 K/UL (0.00-0.90); Neutrophils Absolute Auto 1.44 K/uL (1.7-7.0); Slide Review Reflex No
[2024-02-17] MEDS: FOLIC ACID 1 MG TABLET PO (08:37)
[2024-02-17] MEDS: FAMOTIDINE 20 MG TABLET PO ×2 (08:37→21:36)
[2024-02-17] MEDS: ROSUVASTATIN CALCIUM 10 MG TABLET 20 MG PO (08:37)
[2024-02-17] MEDS: ENOXAPARIN 80 MG/0.8 ML INJ 70 MG SUBCUT (08:37)
[2024-02-17] MEDS: predniSONE 10 MG TABLET PO (08:37)
[2024-02-17] MEDS: ASPIRIN 81 MG TABLET EC PO (08:37)
[2024-02-17] MEDS: CYCLOBENZAPRINE HCL 10 MG TABLET PO (08:37)
[2024-02-17] MEDS: FLUTICASONE PROPIONATE NASAL 1 SPRAY NOSTRIL-B (08:38)
[2024-02-17] MEDS: MAGNESIUM OXIDE 400 MG TABLET PO ×2 (08:38→21:36)
--- NOTE | 2024-02-17 09:01 | REH.OT ---
OT and PT orders were received. Per MD. therapy consults are not needed.
--- NOTE | 2024-02-17 11:47 | PM.IMPN1 ---
Progress Note: A&P Assessment and plan (1) Symptomatic anemia: Problem details: - presumably 2/2 acute blood loss, likely GI bleed in the setting of anticoagulation (on Eliquis, ASA - also takes daily Prednisone for fatigue) - positive Hemoccult 01/2024 - continue PPI and H2 Pablo - previous workup 11/06: reassuring EGD, colonoscopy limited by poor prep, + coffee ground substance in terminal ileum, negative nuclear med scan November 2023 - needs anticoagulation for chronic IJ thrombosis (will evaluate this with scan today) - transitioned from Eliquis to therapeutic dose Lovenox on 02/16 - EGD 02/17 (will hold Lovenox tonight and tomorrow morning) Status: Acute (2) Internal jugular vein thrombosis: Problem details: - diagnosed October 2023, R. 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 Dudley of Oncology - currently receiving palliative alimta +durvalumab, most recent treatment 02/04/24 Status: Acute (4) PVD (peripheral vascular disease): Problem details: - 10/01/23: Status post right SFA to P1 segment angioplasty and stenting at [place] with Dr. Regan, lifelong ASA recommended Status: Acute (5) Hypothyroidism due to drugs: Problem details: - attributed to immune check point inhibitor therapy - TSH 2.19 January 2024 Status: Acute Plan - per above - repeat EGD 02/17, hold Lovenox pre-procedure - continue to follow Hgb Subjective Date Seen: 02/17/24 Interval history: Librado was admitted to the hospital yesterday for recurrent symptomatic anemia in the setting of melena and anticoagulation. He has a known IJ thrombus, currently anticoagulated on Eliquis. History of melena and low Hgb in October 2023: at that time workup revealed no acute bleeding on EGD or colonoscopy (limited by poor prep, but noted to have coffee ground substance at ileocecal junction). He responded well to transfusion, continued PPI and H2 pablo, and had been doing well until last week, when melena and fatigue returned. Admission Hgb 7.4, up to 8.9 today after 2U of PRBCs. Librado is feeling better, hasn't stooled yet since admission. Had been also having some difficulty swallowing (only when supine), repeat soft tissue neck CT stable (no progression of disease, IJ clot stable). No issues with eating or drinking. No other concerns for hospitalist team this morning. Exam Narrative: Exam Narrative: GEN: Alert and oriented, sitting comfortably in bed HEENT: EOMIs bilaterally, no scleral icterus CV: RRR, No concerning murmurs R: LCTA bilaterally without concerning wheezing Ab: soft, nontender Ext: wwp, no concerning edema Skin: No concerning skin lesions or rashes on exposed skin Neuro: Nonfocal Psych: Appropriate Const: Vital Signs, click to edit/add: Vital Signs - 24 hr 02/16/24 11:55 02/16/24 11:55 02/16/24 12:10 Temperature 97.5 F L 97.5 F L Pulse Rate 66 Pulse Rate [Pulse Oximeter] 76 Respiratory Rate 18 18 18 Blood Pressure 136/66 Blood Pressure [Le ft Arm] 151/67 H Pulse Oximetry 93 93 Oxygen Delivery Mi thod Room Air Room Air 02/16/24 12:33 02/16/24 12:33 02/16/24 13:03 Temperature 97.9 F 97.9 F 97.7 F Pulse Rate 70 70 68 Pulse Rate [Pulse Oximeter] Respiratory Rate 18 18 18 Blood Pressure 134/73 134/73 140/74 H Blood Pressure [Le ft Arm] Pulse Oximetry 92 92 Oxygen Delivery Mi thod Room Air Room Air Room Air 02/16/24 13:33 02/16/24 14:03 02/16/24 14:33 Temperature 97.4 F L 97.7 F Pulse Rate 83 71 70 Pulse Rate [Pulse Oximeter] Respiratory Rate 18 18 Blood Pressure 137/66 113/51 L 130/67 Blood Pressure [Le ft Arm] Pulse Oximetry 95 93 Oxygen Delivery Mi thod Room Air Room Air 02/16/24 14:52 02/16/24 15:00 02/16/24 15:00 Temperature 97.7 F Pulse Rate 70 Pulse Rate [Pulse Oximeter] 77 Respiratory Rate 18 18 Blood Pressure 130/67 Blood Pressure [Le ft Arm] Pulse Oximetry 93 96 Oxygen Delivery Mi thod Room Air Room Air 02/16/24 15:55 02/16/24 15:55 02/16/24 20:00 Temperature 97.7 F 97.7 F 98.0 F Pulse Rate 77 Pulse Rate [Pulse Oximeter] 77 65 Respiratory Rate 18 18 16 Blood Pressure 136/70 Blood Pressure [Le ft Arm] 136/70 120/51 L Pulse Oximetry 96 96 93 Oxygen Delivery Me thod Room Air Room Air Room Air 02/16/24 20:11 02/16/24 20:33 02/16/24 21:03 Temperature 98.0 F 98.3 F 98.4 F Pulse Rate 80 66 73 Pulse Rate [Pulse Oximeter] Respiratory Rate 16 14 16 Blood Pressure 120/51 L 108/54 L 124/58 L Blood Pressure [Le ft Arm] Pulse Oximetry 93 94 93 Oxygen Delivery Me thod Room Air Room Air Room Air 02/16/24 21:33 02/16/24 22:03 02/16/24 22:33 Temperature 98.1 F 97.7 F 98.0 F Pulse Rate 68 67 68 Pulse Rate [Pulse Oximeter] Respiratory Rate 14 16 16 Blood Pressure 126/71 138/71 142/62 H Blood Pressure [Le ft Arm] Pulse Oximetry 94 95 94 Oxygen Delivery Me thod Room Air Room Air Room Air 02/16/24 23:00 02/16/24 23:08 02/17/24 00:16 Temperature 97.7 F 98.3 F 97.7 F Pulse Rate 76 66 Pulse Rate [Pulse Oximeter] 66 Respiratory Rate 16 16 16 Blood Pressure 126/67 132/64 Blood Pressure [Le ft Arm] 132/64 Pulse Oximetry 94 94 94 Oxygen Delivery Me thod Room Air Room Air 02/17/24 00:19 02/17/24 00:21 02/17/24 03:00 Temperature 98.0 F Pulse Rate Pulse Rate [Pulse Oximeter] 66 69 Respiratory Rate 16 16 16 Blood Pressure Blood Pressure [Le ft Arm] 122/77 Pulse Oximetry 94 93 Oxygen Delivery Me thod Room Air 02/17/24 07:00 02/17/24 07:00 Temperature 97.9 F Pulse Rate Pulse Rate [Pulse Oximeter] 64 Respiratory Rate 18 18 Blood Pressure Blood Pressure [Le ft Arm] 166/83 H Pulse Oximetry 94 94 Oxygen Delivery Me thod Room Air Room Air Labs Labs: Laboratory Results - last 24 hr 02/16/24 02/16/24 02/16/24 08:56 11:35 16:48 WBC RBC Hgb 7.9 L* Hct MCV MCH MCHC RDW Coeff of Jolie Plt Count Neut % (Auto) Lymph % (Auto) [place] % (Auto) Eos % (Auto) Baso % (Auto) Neut # (Auto) Lymph # (Auto) [place] # (Auto) Eos # (Auto) Baso # (Auto) Abs Immat Gran (auto) Imm/Tot Granulo (auto) Sodium Potassium Chloride Carbon Dioxide Anion Gap BUN Creatinine Estimated Creat Clear Estimated GFR Glucose Calcium Total Bilirubin AST ALT Alkaline Phosphatase Total Protein Albumin Urine Color Yellow Urine Appearance Clear Urine pH 7.0 Ur Specific [place] 1.015 Urine Protein Negative Urine Glucose (UA) Negative Urine Ketones Negative Urine Blood Negative Urine Nitrite Negative Urine Bilirubin Negative Urine Urobilinogen 0.2 Ur Leukocyte Esterase Negative Urine RBC 0-2 Urine WBC 0-2 Ur Squamous Epith Cells None Urine Bacteria None Blood Type B Negative Antibody Screen NEGATIVE Crossmatch ([facility]) See Detail 02/17/24 07:22 WBC 4.43 L RBC 2.89 L Hgb 8.9 L Hct 27.7 L MCV 96 MCH 31 MCHC 32 RDW Coeff of Jolie 18.3 H Plt Count 146 Neut % (Auto) 33.0 L Lymph % (Auto) 46.1 H [place] % (Auto) 17.1 H Eos % (Auto) 2.8 Baso % (Auto) 0.5 Neut # (Auto) 1.44 L Lymph # (Auto) 2.00 [place] # (Auto) 0.74 Eos # (Auto) 0.12 Baso # (Auto) 0.02 Abs Immat Gran (auto) 0.02 Imm/Tot Granulo (auto) 0.5 Sodium 136 Potassium 4.1 Chloride 107 Carbon Dioxide 24 Anion Gap 5 L BUN 23 Creatinine 1.1 Estimated Creat Clear 62.32 Estimated GFR 72 Glucose 82 Calcium 9.0 Total Bilirubin 0.5 AST 31 ALT 42 Alkaline Phosphatase 79 Total Protein 5.6 L Albumin 3.4 Urine Color Urine Appearance Urine pH Ur Specific [place] Urine Protein Urine Glucose (UA) Urine Ketones Urine Blood Urine Nitrite Urine Bilirubin Urine Urobilinogen Ur Leukocyte Esterase Urine RBC Urine WBC Ur Squamous Epith Cells Urine Bacteria Blood Type Antibody Screen Crossmatch ([facility])
[2024-02-17 13:27] LABS: Ferritin* 69.6 ng/mL (17.9-464.0)
--- NOTE | 2024-02-17 18:53 | PC.NURSE ---
End of Shift: The patient is pleasant and cooperative during cares. Fatigued, and took a few hour nap. No reports of pain, has a great appetite. VSS on RA, lungs diminished. NPO at 0000 for EGD tomorrow @ 1100. Up independent, no reports of dizziness or SOB this shift. Soumya VALDEZ BSN
[2024-02-17] MEDS: TRAMADOL HCL 50 MG TABLET PO (21:36)
[2024-02-17] MEDS: GABAPENTIN 100 MG CAPSULE PO (21:36)
[2024-02-17] MEDS: SODIUM CHLORIDE 0.9 % (FLUSH) 10 ML SYRINGE 5 ML IVF (21:37)
[2024-02-18 03:00] VITALS: BP 153/97; PULSE 78; RESP 16; TEMP 36.3; O2SAT 94
[2024-02-18] MEDS: LEVOTHYROXINE 125 MCG TABLET PO (06:23)
--- NOTE | 2024-02-18 06:32 | PC.NURSE ---
Pt alert, oriented and vitally stable. Pt up independently in room, tolerates well. Pt Npo at midnight. Pt denies SOB, dizziness and weakness. Pt refused SCD and Teds. Pt appears to be resting comfortably, call light within reach.?
[2024-02-18 06:44] LABS: Basophils Absolute Auto 0.01 K/uL (0.00-0.30); Basophils Percent Auto 0.2 % (0.0-3.0); Eosinophils Absolute Auto 0.12 K/uL (0.00-0.50); Eosinophils Percent Auto 2.3 % (0.0-7.0); Hematocrit 28.9 % (37.0-53.0); Hemoglobin* 9.1 gm/dL (13.5-17.5); Immature Granulocytes Abs Auto 0.03 K/uL (0.00-0.30); Immature Granulocytes Pct Auto 0.6 %; Lymphocytes Absolute Auto 1.89 K/uL (0.90-2.90); Lymphocytes Percent Auto 36.8 % (20-44); Mean Corpuscular HGB Conc 32 gm/dL (32-36); Mean Corpuscular Hemoglobin 31 pg (26-34); Mean Corpuscular Volume 99 fL (80-100); Monocytes Percent Auto 14.8 % (0.0-11.0); Neutrophils Absolute Auto 2.32 K/uL (1.7-7.0); Neutrophils Percent Auto 45.3 % (42.0-72.0); Platelet Count* 166 K/uL (140-440); RDW Coefficient of Variation % 18.8 % (11.5-15.5); Red Blood Count 2.93 m/uL (4.30-5.90); White Blood Count* 5.13 K/uL (4.50-11.00)
[2024-02-18 06:55] LABS: Slide Review Reflex No
[2024-02-18 07:12] LABS: Albumin* 3.4 g/dL (3.3-5.0)
[2024-02-18 07:13] LABS: Chloride* 106 mmol/L (96-114); Potassium* 4.4 mmol/L (3.6-5.1); Sodium* 136 mmol/L (135-149)
[2024-02-18 07:15] LABS: Anion Gap 5 mEq/L (7-15); Bilirubin Total* 0.3 mg/dL (0.1-1.5); Carbon Dioxide* 25 mmol/L (20-32); Est. Creatinine Clearance* 68.31; Estimated Glomerular Filt Rate 81 ml/min
[2024-02-18 07:16] LABS: Alanine Aminotransferase* 48 U/L (4-50); Alkaline Phosphatase* 79 U/L (40-150); Aspartate Amino Transferase* 35 U/L (12-35); Blood Urea Nitrogen* 19 mg/dL (7-30); Glucose* 82 mg/dL (60-115); Total Protein* 5.6 g/dL (6.0-8.3)
[2024-02-18 07:45] VITALS: BP 129/79; PULSE 75; RESP 18; TEMP 36.4; O2SAT 98
[2024-02-18] MEDS: FLUTICASONE PROPIONATE NASAL 1 SPRAY NOSTRIL-B (09:09)
--- NOTE | 2024-02-18 10:58 | P.ANES_ITS ---
Anesthesia Charges Start Date/Time Anesthesia Start Date: 02/18/24 Anesthesia Start Time: 10:43 Stop Date/Time Anesthesia Stop Date: 02/18/24 Anesthesia Stop Time: 10:55 Summary Extremes of Age - Over 70 or under 1: LEAD APPLICATION ARCHITECT
--- NOTE | 2024-02-18 11:03 | PM.IMPN1 ---
Progress Note: A&P Assessment and plan (1) Symptomatic anemia: Problem details: - presumably 2/2 acute blood loss, likely GI bleed in the setting of anticoagulation (on Eliquis, ASA - also takes daily Prednisone for fatigue) - positive Hemoccult 01/2024 - continue PPI and H2 Pablo - previous workup 11/06: reassuring EGD, colonoscopy limited by poor prep, + coffee ground substance in terminal ileum, negative nuclear med scan November 2023 - needs anticoagulation for chronic IJ thrombosis (will evaluate this with scan today) - transitioned from Eliquis to therapeutic dose Lovenox on 02/16 - EGD 02/17 (will hold Lovenox tonight and tomorrow morning) Status: Acute (2) Internal jugular vein thrombosis: Problem details: - diagnosed October 2023, R. 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 Dudley of Oncology - currently receiving palliative alimta +durvalumab, most recent treatment 02/04/24 Status: Acute (4) PVD (peripheral vascular disease): Problem details: - 10/01/23: Status post right SFA to P1 segment angioplasty and stenting at [place] with Dr. Regan, lifelong ASA recommended Status: Acute (5) Hypothyroidism due to drugs: Problem details: - attributed to immune check point inhibitor therapy - TSH 2.19 January 2024 Status: Acute Subjective Date Seen: 02/18/24 Interval history: Librado was admitted to the hospital on 01/16 for recurrent symptomatic anemia in the setting of melena and anticoagulation. Known IJ thrombus, anticoagulated on Eliquis as an outpatient. History of melena and low Hgb in October 2023: at that time workup revealed no acute bleeding on EGD or colonoscopy (limited by poor prep, but noted to have coffee ground substance at ileocecal junction). He responded well to transfusion, continued PPI and H2 pablo, and had been doing well until last week, when melena and fatigue returned. Admission Hgb 7.4, up to 8.9 today after 2U of PRBCs. Librado is feeling better, hasn't stooled yet since admission. Had been also having some difficulty swallowing (only when supine), repeat soft tissue neck CT stable (no progression of disease, IJ clot stable). No issues with eating or drinking. No other concerns for hospitalist team this morning. Exam Const: Vital Signs, click to edit/add: Vital Signs - 24 hr 02/17/24 15:00 02/17/24 15:00 02/17/24 19:00 Temperature 98.3 F 97.3 F L Pulse Rate [Pulse Oximeter] 77 74 Respiratory Rate 18 18 16 Blood Pressure [Le ft Arm] 129/93 H 139/75 Pulse Oximetry 94 94 94 Oxygen Delivery Me thod Room Air Room Air 02/17/24 22:48 02/17/24 23:00 02/17/24 23:00 Temperature Pulse Rate [Pulse Oximeter] 74 61 Respiratory Rate 16 16 Blood Pressure [Le ft Arm] Pulse Oximetry 94 Oxygen Delivery Me thod Room Air 02/18/24 03:00 02/18/24 07:45 02/18/24 07:45 Temperature 97.4 F L 97.5 F L Pulse Rate [Pulse Oximeter] 78 75 Respiratory Rate 16 18 18 Blood Pressure [Le ft Arm] 153/97 H 129/79 Pulse Oximetry 94 98 98 Oxygen Delivery Me thod Room Air Room Air Room Air 02/18/24 07:45 Temperature Pulse Rate [Pulse Oximeter] 75 Respiratory Rate Blood Pressure [Le ft Arm] Pulse Oximetry Oxygen Delivery Me thod Labs Labs: Laboratory Results - last 24 hr 02/17/24 02/17/24 02/18/24 07:22 12:28 06:21 WBC 5.13 RBC 2.93 L Hgb 9.1 L Hct 28.9 L MCV 99 MCH 31 MCHC 32 RDW Coeff of Jolie 18.8 H Plt Count 166 Neut % (Auto) 45.3 Lymph % (Auto) 36.8 [place] % (Auto) 14.8 H Eos % (Auto) 2.3 Baso % (Auto) 0.2 Neut # (Auto) 2.32 Lymph # (Auto) 1.89 [place] # (Auto) 0.80 Eos # (Auto) 0.12 Baso # (Auto) 0.01 Abs Immat Gran (auto) 0.03 Imm/Tot Granulo (auto) 0.6 Sodium 136 Potassium 4.4 Chloride 106 Carbon Dioxide 25 Anion Gap 5 L BUN 19 Creatinine 1.0 Estimated Creat Clear 68.31 Estimated GFR 81 Glucose 82 Calcium 9.0 Ferritin 69.6 Total Bilirubin 0.3 AST 35 ALT 48 Alkaline Phosphatase 79 Total Protein 5.6 L Albumin 3.4 Lab Acknowledgement Test Added
[2024-02-18 11:48] VITALS: BP 150/82; PULSE 62; RESP 18; TEMP 36.2; O2SAT 98
--- NOTE | 2024-02-18 11:49 | W.ANESCHARGE ---
Anesthesia Charges Start Date/Time Anesthesia Start Date: 02/18/24 Anesthesia Start Time: 10:43 Stop Date/Time Anesthesia Stop Date: 02/18/24 Anesthesia Stop Time: 10:55 Summary Extremes of Age - Over 70 or under 1: MDA
--- NOTE | 2024-02-18 11:57 | PM.DS1 ---
DS: Providers Provider Date Seen: 02/18/24 Date of admission: 02/16/24 12:09 Primary care physician: Mikal Gunter MD Admitting Clinician: Ibis Levin MD Attending Physician on discharge: Renetta Aguirre MD Date of Discharge: 02/18/24 DS: Diagnosis Discharge Diagnosis (1) Symptomatic anemia: Status: Acute Problem details: - presumably 2/2 acute blood loss, likely GI bleed in the setting of anticoagulation (on Eliquis, ASA - also takes 10mg Prednisone daily for fatigue) - positive Hemoccult 01/2024 - previous workup 11/06: reassuring EGD, colonoscopy limited by poor prep, + coffee ground substance in terminal ileum, negative nuclear med scan November 2023 - anticoagulated for chronic IJ thrombosis, 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 Dudley of Oncology - currently receiving palliative alimta +durvalumab, most recent treatment 02/04/24 (4) PVD (peripheral vascular disease): Status: Acute Problem details: - 10/01/23: Status post right SFA to P1 segment angioplasty and stenting at [facility] with Dr. 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 He has a known IJ thrombus, anticoagulated on Eliquis. History of melena and low Hgb in October 2023: at that time workup revealed no acute bleeding on EGD or colonoscopy (limited by poor prep, but noted to have coffee ground substance at ileocecal junction). He responded well to transfusion, continued PPI and H2 troy, and had been doing well until last week, when melena and fatigue returned. Admission Hgb 7.4, received 2U PRBCs, Hgb 9.1 on day of discharge. Patient had an EGD on 02/18/[address] Phillips of General Surgery which demonstrated mild gastritis, no active bleeding. He remained hemodynamically stable, tolerating po intake, requesting d/c home on 02/18/24. Short interval colonoscopy recommended and scheduled for early next week. Medication changes upon discharge: - increase PPI from daily to BID - decrease Prednisone (takes for fatigue) from 10 -->5mg daily - transition to Lovenox from Eliquis for the weekend given short interval colonoscopy (Thursday, 02/21), likely will restart Eliquis on 02/22 Patient high risk for bleeding given need for anticoagulation + comorbidities, understands this. Reviewed return precautions and red flag symptoms. Time Spent with Patient Time attestation: Total time spent providing and/or coordinating discharge services: Time spent: Greater than 30 minutes Specific discharge activities: Medication reconciliation, patient education, collaboration with Oncology team Exam Narrative: Exam Narrative: GEN: Alert and oriented, sitting comfortably in bedside chair and nontoxic HEENT: Mild conjunctival pallor, no scleral icterus CV: RRR, No concerning murmurs R: LCTA bilaterally without concerning wheezing, air movement adequate Ext: wwp, no concerning edema Skin: No concerning skin lesions or rashes on exposed skin Neuro: Nonfocal Psych: Appropriate Const: Vital Signs, click to edit/add: Vital Signs - 24 hr 02/17/24 15:00 02/17/24 15:00 02/17/24 19:00 Temperature 98.3 F 97.3 F L Pulse Rate [Pulse Oximeter] 77 74 Respiratory Rate 18 18 16 Blood Pressure [Le ft Arm] 129/93 H 139/75 Pulse Oximetry 94 94 94 Oxygen Delivery Me thod Room Air Room Air 02/17/24 22:48 02/17/24 23:00 02/17/24 23:00 Temperature Pulse Rate [Pulse Oximeter] 74 61 Respiratory Rate 16 16 Blood Pressure [Le ft Arm] Pulse Oximetry 94 Oxygen Delivery Me thod Room Air 02/18/24 03:00 02/18/24 07:45 02/18/24 07:45 Temperature 97.4 F L 97.5 F L Pulse Rate [Pulse Oximeter] 78 75 Respiratory Rate 16 18 18 Blood Pressure [Le ft Arm] 153/97 H 129/79 Pulse Oximetry 94 98 98 Oxygen Delivery Me thod Room Air Room Air Room Air 02/18/24 07:45 02/18/24 11:48 Temperature 97.1 F L Pulse Rate [Pulse Oximeter] 75 62 Respiratory Rate 18 Blood Pressure [Le ft Arm] 150/82 H Pulse Oximetry 98 Oxygen Delivery Me thod Room Air DS: Data Data Completed and Pending Completed studies during hospitalization: Procedures Inspection of Lower Intestinal Tract, Via Natural or Artificial Opening Endoscopic (11/09/23) Inspection of Upper Intestinal Tract, Via Natural or Artificial Opening Endoscopic (11/09/23) Transfusion of Nonautologous Red Blood Cells into Central Vein, Percutaneous Approach (11/09/23) Transfusion of Nonautologous Red Blood Cells into Peripheral Vein, Percutaneous Approach (10/29/23) Labs on day of discharge: Labs from last 24 hours 02/18/24 02/17/24 02/17/24 06:21 12:28 07:22 WBC 5.13 RBC 2.93 L Hgb 9.1 L Hct 28.9 L MCV 99 MCH 31 MCHC 32 RDW Coeff of Jolie 18.8 H Plt Count 166 Neut % (Auto) 45.3 Lymph % (Auto) 36.8 Ritchie % (Auto) 14.8 H Eos % (Auto) 2.3 Baso % (Auto) 0.2 Neut # (Auto) 2.32 Lymph # (Auto) 1.89 Ritchie # (Auto) 0.80 Eos # (Auto) 0.12 Baso # (Auto) 0.01 Abs Immat Gran (auto) 0.03 Imm/Tot Granulo (auto) 0.6 Sodium 136 Potassium 4.4 Chloride 106 Carbon Dioxide 25 Anion Gap 5 L BUN 19 Creatinine 1.0 Estimated Creat Clear 68.31 Estimated GFR 81 Glucose 82 Calcium 9.0 Ferritin 69.6 Total Bilirubin 0.3 AST 35 ALT 48 Alkaline Phosphatase 79 Total Protein 5.6 L Albumin 3.4 Lab Acknowledgement Test Added Discharge Plan Discharge Disposition: Home, Self-Care Date of Admission: 02/16/24 12:09 Attending Provider on Discharge: Renetta Aguirre Primary Care Provider: Mikal Gunter Condition: Improved Anticipated Discharge Date/Time: 02/18/24 11:51 Discharge Medications: New pantoprazole 40 mg tablet,delayed release (DR/EC) 40 mg PO BID Qty: 60 0RF prednisone 5 mg tablet 5 mg PO DAILY Qty: 30 0RF enoxaparin [Lovenox] 80 mg/0.8 mL Syringe 70 mg subcut Q12H 3 Days Qty: 5 0RF Rx Instructions: Please provide FIVE doses. Start the morning on Thursday, 02/18 Last dose the morning of Thursday, 02/20 Continued famotidine [Pepcid] 20 mg tablet 20 mg PO BID Qty: 180 3RF aspirin [Adult Low Dose Aspirin] 81 mg tablet,delayed release (DR/EC) 81 mg PO DAILY rosuvastatin 20 mg tablet 20 mg PO DAILY levothyroxine 125 mcg tablet 125 mcg PO DAILY Qty: 30 3RF ondansetron HCl 4 mg tablet 4 mg PO Q8H PRN (Reason: nausea and vomiting) Qty: 60 0RF prochlorperazine maleate [Compazine] 5 mg tablet 5 mg PO TID PRN (Reason: nausea and vomiting) Qty: 90 0RF gabapentin 100 mg capsule 100 mg PO HS Qty: 90 3RF magnesium oxide 400 mg (241.3 mg magnesium) tablet 400 mg PO BID Qty: 100 3RF vitamin B complex Tablet 1 tab PO DAILY folic acid 1 mg tablet 1 mg PO DAILY albuterol sulfate [Ventolin HFA] 90 mcg/actuation HFA aerosol inhaler 2 inh inhalation Q4H PRN cyclobenzaprine 10 mg tablet 10 mg PO DAILY calcium carbonate-vitamin D3 [Calcium 500 With D] 500 mg-10 mcg (400 unit) tablet 1 tab PO BID Qty: 90 3RF budesonide-formoterol [Symbicort] 80-4.5 mcg/actuation HFA aerosol inhaler 2 puff inhalation BID Qty: 30.6 1RF tramadol 50 mg tablet 50 mg PO HS Qty: 60 0RF peg 3350-electrolytes [Golytely] 236-22.74-6.74 -5.86 gram recon soln 240 ml PO ONCE Qty: 4000 0RF Rx Instructions: 4pm day prior to procedure. Drink 8oz glass every 15 minutes until 1/2 of solution is gone. 6 hours prior to procedure drink 8 oz glass every 15 minutes until remaining solution gone. Held Eliquis 5 mg tablet 5 mg PO BID Qty: 60 1RF Hold Instructions: You'll be holding your Eliquis on discharge and using LOVENOX over the weekend. You will likely restart the Eliquis after your colonoscopy on Thursday. Discontinued pantoprazole 40 mg tablet,delayed release (DR/EC) 40 mg PO DAILY Qty: 90 3RF prednisone 10 mg tablet 10 mg PO DAILY Qty: 30 0RF Rx Instructions: Take in the morning with food. Discharge Orders: Discharge Order (Routine); Ordered 02/18/24 Ordered By: Renetta Aguirre Patient Education: Enoxaparin (By injection), Colonoscopy (DC) Additional Instructions: You were found to have some irritation in your stomach on Endoscopy, no active bleeding. Recommendations: DECREASE your Prednisone to 5mg daily if you're able to (this can increase stomach irritation and risk of bleeding) INCREASE your Pantoprazole to twice/day (take 40mg in the morning and 40mg at night) HOLD your Eliquis upon discharge, instead you'll be on Lovenox START Lovenox twice per day over the weekend (first dose Thursday morning, last dose Thursday morning) You will have a colonoscopy here Thursday. Follow instructions given to you in envelope If you have any more fatigue, lightheadedness, or concern for bloody/dark stool, you need to return to the ER. I sent the Lovenox, lower dose of Prednisone, and higher dose of Pantoprazole to [facility] Activity Level: No strenuous activity Discharge Diet: Regular Diet Detail: Colonoscopy prep per discharge information Follow Up Appointments: Mikal Gunter MD [Primary Care Provider] - (hospital f/u appt in 7-14 days) Forms: [email or web address] Info Instructions
--- NOTE | 2024-02-18 14:28 | PC.NURSE ---
Discharge: The patient discharged with his S/O home. All instructions were reviewed regarding holding Eliquis, colonoscopy instruction handout that he received. We also discussed his other medication changes, and the follow up appointment. No reports of pain. HGB has stabilized. Soumya VALDEZ BSN
== END 2024-02-18 13:30 | disposition home or self-care (01) | DRG 813 ==
LOC: ED 10:42 → MEDSURG 11:32
PROVIDERS: Admitting Provider Family Medicine; Emergency Provider Family Medicine; PCP Family Medicine; Visit Provider Family Medicine
DX: D68.32 Hemorrhagic disorder due to extrinsic circulating anticoagulants (principal); D62 Acute posthemorrhagic anemia; K92.1 Melena; C34.92 Malignant neoplasm of unspecified part of left bronchus or lung; C79.51 Secondary malignant neoplasm of bone; T82.868A Thrombosis due to vascular prosthetic devices, implants and grafts, initial encounter; I82.C21 Chronic embolism and thrombosis of right internal jugular vein; I82.C11 Acute embolism and thrombosis of right internal jugular vein; K31.819 Angiodysplasia of stomach and duodenum without bleeding; K29.80 Duodenitis without bleeding; T45.515A Adverse effect of anticoagulants, initial encounter; Z79.01 Long term (current) use of anticoagulants; I73.9 Peripheral vascular disease, unspecified; M48.02 Spinal stenosis, cervical region; G89.3 Neoplasm related pain (acute) (chronic); E87.5 Hyperkalemia; J44.9 Chronic obstructive pulmonary disease, unspecified; J43.9 Emphysema, unspecified; Z95.820 Peripheral vascular angioplasty status with implants and grafts; I45.19 Other right bundle-branch block; E03.2 Hypothyroidism due to medicaments and other exogenous substances; F17.210 Nicotine dependence, cigarettes, uncomplicated; G47.00 Insomnia, unspecified; K29.70 Gastritis, unspecified, without bleeding
CPT/HCPCS: 00731; 36415; 36430; 43235; 70491; 80048; 80053; 81001; 82728; 83735; 85018; 85025; 85610; 86850; 86900; 86901; 86922; 93005; 99100; 99285; 99291; A9270; J1650; J2704; J3010; J7512; P9016; Q9967

== ENCOUNTER 2024-02-22 12:32 | Outpatient (CLI) | payer OTHER, SELFPAY | END 2024-02-22 12:33 | disposition home or self-care (01) | LOC: OP CLINIC 12:33 | PROVIDERS: PCP Family Medicine; Visit Provider Surgery | DX: Z53.9 Procedure and treatment not carried out, unspecified reason (principal) ==

== ENCOUNTER 2024-02-25 09:05 | Outpatient (CLI) | payer OTHER, SELFPAY ==
--- NOTE | 2024-02-25 09:15 | CRLHL7_ITS ---
For Patients: As a result of the Century Cures Act, medical imaging exams and procedure reports are released immediately into your electronic medical record. You may view this report before your referring provider. If you have questions, please contact your health care provider. Indication: Lung cancer Technique: Multiplanar, multisequence MRI of the brain obtained without and with contrast. A total of 15 mL of Dotarem IV contrast was administered. Comparison: PET-CT 11/12/2023, CT head 10/29/2023 Findings: The ventricles and cortical sulci are mildly prominent, compatible with generalized cerebral volume loss. No midline shift or mass effect. No acute intracranial hemorrhage or abnormal extra-axial fluid collection. No evidence of acute/subacute ischemia. Tiny lipoma in the suprasellar cistern at the level of the tuber cinereum, stable in appearance relative to the prior CT head. Scattered FLAIR hyperintense foci throughout the supratentorial white matter and central nancy, typical of chronic microangiopathy. No suspicious intracranial enhancement identified. Midline structures are otherwise unremarkable. Major intracranial vasculature appears within normal limits for technique. No concerning bone marrow lesion. Mild mucosal thickening throughout the ethmoid air cells and frontal sinuses. Large right mastoid and middle ear effusion. Trace left mastoid fluid. Unremarkable orbits. Impression: 1. No evidence of acute intracranial abnormality or intracranial metastases. 2. Mild generalized cerebral volume loss and mild-moderate chronic microangiopathy changes. 3. 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 No local mass effect. 4. Nonspecific large right mastoid and middle ear effusion. Dictated by Claudia Samuels MD @ 02/27/2024 8:46:54 AM (Electronically Signed)
== END 2024-02-25 09:06 | disposition home or self-care (01) ==
LOC: MRI 09:05
PROVIDERS: PCP Family Medicine; Visit Provider Clinical Nurse Specialist
DX: C34.92 Malignant neoplasm of unspecified part of left bronchus or lung (principal); I82.C19 Acute embolism and thrombosis of unspecified internal jugular vein
CPT/HCPCS: 70553; A9575

== ENCOUNTER 2024-05-09 08:30 | Outpatient (RCR) | payer MEDICARE, OTHER, SELFPAY ==
--- NOTE | 2023-11-10 14:05 | ONC.NURNOTE ---
Hospitalist stopped by to talk with nursing. Patient is still admitted with GI bleed, and he is wondering about infusion for tomorrow. Manufacturing Lead discussed with oncologist, this was pushed out to next week when she sees him for safety. Hospitalist will discuss with radiology about rescheduling the scans that are scheduled for tomorrow for when he is stable, but before he is seen by oncologist next week.
--- NOTE | 2023-11-10 15:47 | ONC.NURNOTE ---
Pt has PET scan scheduled on 11/12/23. Per Dr. Dudley pt can still have PET scan done with recent diagnosis of GI bleed. Pt aware of appt, film writer discussed with nursing on the medsur dept and [facility] on 11/11/23.
[2023-11-13 08:06] LABS: Basophils Absolute Auto 0.08 K/uL (0.00-0.30); Basophils Percent Auto 1.1 % (0.0-3.0); Eosinophils Absolute Auto 0.35 K/uL (0.00-0.50); Eosinophils Percent Auto 4.8 % (0.0-7.0); Hemoglobin* 10.7 gm/dL (13.5-17.5); Immature Granulocytes Abs Auto 0.03 K/uL (0.00-0.30); Immature Granulocytes Pct Auto 0.4 %; Lymphocytes Absolute Auto 1.64 K/uL (0.90-2.90); Lymphocytes Percent Auto 22.5 % (20-44); Mean Corpuscular HGB Conc 32 gm/dL (32-36); Mean Corpuscular Hemoglobin 31 pg (26-34); Mean Corpuscular Volume 98 fL (80-100); Neutrophils Absolute Auto 4.24 K/uL (1.7-7.0); Neutrophils Percent Auto 58.2 % (42.0-72.0); Platelet Count* 290 K/uL (140-440); RDW Coefficient of Variation % 18.8 % (11.5-15.5); Red Blood Count 3.46 m/uL (4.30-5.90); White Blood Count* 7.29 K/uL (4.50-11.00)
[2023-11-13 08:18] LABS: Slide Review Reflex No
[2023-11-17 08:11] LABS: Basophils Absolute Auto 0.09 K/uL (0.00-0.30); Basophils Percent Auto 1.2 % (0.0-3.0); Eosinophils Absolute Auto 0.33 K/uL (0.00-0.50); Eosinophils Percent Auto 4.5 % (0.0-7.0); Hematocrit 34.1 % (37.0-53.0); Hemoglobin* 10.5 gm/dL (13.5-17.5); Immature Granulocytes Abs Auto 0.01 K/uL (0.00-0.30); Immature Granulocytes Pct Auto 0.1 %; Lymphocytes Absolute Auto 1.46 K/uL (0.90-2.90); Mean Corpuscular HGB Conc 31 gm/dL (32-36); Mean Corpuscular Hemoglobin 31 pg (26-34); Mean Corpuscular Volume 99 fL (80-100); Monocytes Percent Auto 9.5 % (0.0-11.0); Neutrophils Absolute Auto 4.72 K/uL (1.7-7.0); Neutrophils Percent Auto 64.7 % (42.0-72.0); Platelet Count* 263 K/uL (140-440); Red Blood Count 3.44 m/uL (4.30-5.90)
[2023-11-17 08:15] LABS: Slide Review Reflex No
[2023-11-17 08:25] LABS: Chloride* 105 mmol/L (96-114)
[2023-11-17 08:26] LABS: Potassium* 4.6 mmol/L (3.6-5.1); Sodium* 136 mmol/L (135-149)
[2023-11-17 08:28] LABS: Anion Gap 6 mEq/L (7-15); Aspartate Amino Transferase* 73 U/L (12-35); Bilirubin Total* 0.3 mg/dL (0.1-1.5); Carbon Dioxide* 25 mmol/L (20-32); Creatinine* 1.3 mg/dL (0.5-1.5); Estimated Glomerular Filt Rate 59 ml/min; Total Protein* 6.4 g/dL (6.0-8.3)
[2023-11-17 08:29] LABS: Alanine Aminotransferase* 77 U/L (4-50); Alkaline Phosphatase* 128 U/L (40-150); Blood Urea Nitrogen* 20 mg/dL (7-30); Calcium* 9.5 mg/dL (8.4-10.6); Glucose* 112 mg/dL (60-115)
[2023-11-17 08:43] LABS: Magnesium* 2.3 mg/dL (1.5-2.6)
[2023-11-19 08:59] VITALS: BP 102/53; PULSE 84; RESP 16; TEMP 36.2; O2SAT 97
[2023-11-19] MEDS: 0.9 % SODIUM CHLORIDE 250 ml IV (10:00)
[2023-11-19] MEDS: SODIUM CHLORIDE 0.9 % (FLUSH) 10 ML SYRINGE IVF (10:00)
[2023-11-19] MEDS: DURVALUMAB 1,500 MG, TUBING PRIMARY 1 EACH, In-line 0.2 micron filter set 1 EACH in 0.9... 280 MG IVPB (10:09)
[2023-11-19] MEDS: dexAMETHasone 10 MG in 0.9 % SODIUM CHLORIDE 100 ml 100 ML 400 MG IVPB (11:13)
[2023-11-19] MEDS: PALONOSETRON 0.25 MG/5 ML inj IV (11:13)
[2023-11-19] MEDS: TUBING SECONDARY IV (11:41)
[2023-11-19] MEDS: [UNRECOGNIZED DRUG - OTHER] IV (11:41)
[2023-11-19] MEDS: PEMETREXED IV (11:41)
[2023-12-09 10:05] LABS: Basophils Absolute Auto 0.08 K/uL (0.00-0.30); Basophils Percent Auto 1.2 % (0.0-3.0); Hematocrit 31.2 % (37.0-53.0); Hemoglobin* 9.6 gm/dL (13.5-17.5); Immature Granulocytes Abs Auto 0.03 K/uL (0.00-0.30); Immature Granulocytes Pct Auto 0.4 %; Lymphocytes Percent Auto 24.6 % (20-44); Mean Corpuscular HGB Conc 31 gm/dL (32-36); Mean Corpuscular Hemoglobin 31 pg (26-34); Mean Corpuscular Volume 100 fL (80-100); Neutrophils Absolute Auto 3.72 K/uL (1.7-7.0); Neutrophils Percent Auto 53.8 % (42.0-72.0); Platelet Count* 323 K/uL (140-440); RDW Coefficient of Variation % 18.7 % (11.5-15.5); Red Blood Count 3.11 m/uL (4.30-5.90); White Blood Count* 6.91 K/uL (4.50-11.00)
[2023-12-09 10:08] LABS: Slide Review Reflex No
[2023-12-09 10:10] LABS: Chloride* 105 mmol/L (96-114); Sodium* 135 mmol/L (135-149)
[2023-12-09 10:11] LABS: Potassium* 4.3 mmol/L (3.6-5.1)
[2023-12-09 10:13] LABS: Alanine Aminotransferase* 92 U/L (4-50); Alkaline Phosphatase* 192 U/L (40-150); Anion Gap 6 mEq/L (7-15); Aspartate Amino Transferase* 44 U/L (12-35); Bilirubin Total* 0.2 mg/dL (0.1-1.5); Blood Urea Nitrogen* 20 mg/dL (7-30); Calcium* 9.6 mg/dL (8.4-10.6); Carbon Dioxide* 24 mmol/L (20-32); Creatinine* 1.4 mg/dL (0.5-1.5); Est. Creatinine Clearance* 50.37; Estimated Glomerular Filt Rate 54 ml/min; Glucose* 108 mg/dL (60-115); Total Protein* 6.5 g/dL (6.0-8.3)
[2023-12-09 10:14] LABS: Magnesium* 2.3 mg/dL (1.5-2.6)
[2023-12-09] MEDS: 0.9 % SODIUM CHLORIDE 1000 ml 1,000 ML IV (11:44)
[2023-12-17] MEDS: SODIUM CHLORIDE 0.9 % (FLUSH) 10 ML SYRINGE IVF (09:30)
[2023-12-17 09:42] VITALS: BP 87/54; PULSE 92; RESP 18; TEMP 36.6; O2SAT 91
[2023-12-17 09:43] VITALS: BP 75/41
[2023-12-17 09:45] LABS: Basophils Absolute Auto 0.14 K/uL (0.00-0.30); Basophils Percent Auto 2.4 % (0.0-3.0); Eosinophils Percent Auto 7.9 % (0.0-7.0); Hematocrit 33.5 % (37.0-53.0); Hemoglobin* 10.5 gm/dL (13.5-17.5); Immature Granulocytes Abs Auto 0.02 K/uL (0.00-0.30); Immature Granulocytes Pct Auto 0.3 %; Lymphocytes Absolute Auto 1.54 K/uL (0.90-2.90); Lymphocytes Percent Auto 26.5 % (20-44); Mean Corpuscular HGB Conc 31 gm/dL (32-36); Mean Corpuscular Hemoglobin 31 pg (26-34); Mean Corpuscular Volume 100 fL (80-100); Monocytes Percent Auto 13.8 % (0.0-11.0); Neutrophils Absolute Auto 2.85 K/uL (1.7-7.0); Neutrophils Percent Auto 49.1 % (42.0-72.0); Platelet Count* 247 K/uL (140-440); Red Blood Count 3.36 m/uL (4.30-5.90); White Blood Count* 5.81 K/uL (4.50-11.00)
[2023-12-17 09:46] LABS: Slide Review Reflex No
[2023-12-17] MEDS: 0.9 % SODIUM CHLORIDE 1000 ml 1,000 ML IV (10:00)
[2023-12-17 10:08] LABS: Albumin* 4.3 g/dL (3.3-5.0); Chloride* 101 mmol/L (96-114); Potassium* 5.2 mmol/L (3.6-5.1); Sodium* 133 mmol/L (135-149)
[2023-12-17 10:10] LABS: Anion Gap 7 mEq/L (7-15); Bilirubin Total* 0.3 mg/dL (0.1-1.5); Carbon Dioxide* 25 mmol/L (20-32); Creatinine* 1.8 mg/dL (0.5-1.5); Est. Creatinine Clearance* 38.66; Estimated Glomerular Filt Rate 40 ml/min
[2023-12-17 10:11] LABS: Alanine Aminotransferase* 37 U/L (4-50); Alkaline Phosphatase* 157 U/L (40-150); Aspartate Amino Transferase* 34 U/L (12-35); Blood Urea Nitrogen* 31 mg/dL (7-30); Glucose* 141 mg/dL (60-115); Total Protein* 6.9 g/dL (6.0-8.3)
[2023-12-17 12:34] VITALS: BP 107/66; BP 118/65; PULSE 70; PULSE 71; O2SAT 100
--- NOTE | 2023-12-18 08:33 | PC.NURSE ---
LATE ENTRY: Pt present at [facility] for treatment. Labs drawn. VS done, BP very low. See VS flowsheet. Pt reports feeling dizzy occasionally, very weak and sleeping all the time. Pt reports NO blood per rectum or sputum. Discussed with Meghan Quintero PA-C. Labs resulted, noted elevated creatinine. Chemo treatment held. 1L NS done. Cortisol and ACTH labs added to morning blood draw. Librado felt better after fluids. BP better. Pt sent home. He will return to [facility] Thursday for repeat labs and fluids. Per JUNE Quintero orders, treatment needs to be held until Cortisol/ACTH labs resulted and normal.
[2023-12-18 09:09] VITALS: BP 125/73; PULSE 80; RESP 18; TEMP 36.5; O2SAT 97
[2023-12-18 09:10] VITALS: BP 107/59; PULSE 88
[2023-12-18] MEDS: 0.9 % SODIUM CHLORIDE 1000 ml 1,000 ML IV (09:30)
[2023-12-18 09:40] LABS: Chloride* 103 mmol/L (96-114)
[2023-12-18 09:41] LABS: Potassium* 4.7 mmol/L (3.6-5.1); Sodium* 133 mmol/L (135-149)
[2023-12-18 09:43] LABS: Creatinine* 1.4 mg/dL (0.5-1.5); Est. Creatinine Clearance* 49.71; Estimated Glomerular Filt Rate 54 ml/min
[2023-12-18 09:44] LABS: Anion Gap 7 mEq/L (7-15); Blood Urea Nitrogen* 32 mg/dL (7-30); Calcium* 9.7 mg/dL (8.4-10.6); Carbon Dioxide* 23 mmol/L (20-32); Glucose* 95 mg/dL (60-115)
[2023-12-18] MEDS: SODIUM CHLORIDE 0.9 % (FLUSH) 10 ML SYRINGE IVF (09:49)
--- NOTE | 2023-12-18 09:54 | PC.NURSE ---
Pt returns to [facility] today for repeat labs, vital signs, and fluids. BP better, pt feels better, labs drawn. IV fluids started. Pt states he got light headed once this morning when getting out of the car. Will address next steps with provider team next week. Pt is agreeable.
[2023-12-18 10:41] VITALS: BP 154/84; PULSE 66; O2SAT 100
[2023-12-18 10:46] VITALS: BP 134/74; PULSE 74
[2023-12-18 23:23] LABS: Cortisol, Serum 16.4 ug/dL
--- NOTE | 2023-12-21 12:21 | PC.NURSE ---
Discussed pt's case with Dr. Dudley today. Cortisol and ACTH are resulted and normal. All labs and events of last week reviewed with MD. Dr. Dudley ordered oral Prednisone 20 mg daily (in AM with food), push oral fluids, and hold Lisinopril (pt to update PCP). Called Librado with the plan and he verbalized understanding and agreement. Pt will come to [facility] for labs and MD on 01/05/24 and will have his next treatment on 01/07/24. Also of note, MD reviewed most recent neck CT and advises that we continue to NOT use his port due to persistent clot. Pt aware.
--- NOTE | 2024-01-04 12:30 | ONC.NURNOTE ---
Patient called today to report that he took his BP this morning and it was 119/70, he took another reading after standing up and it was 81/54. He denies any dizziness but does have some lightheadedness. He has an appt tomorrow in the clinic and he is wondering if it can wait until tomorrow or if he should be seen today. RN spoke with Lori Mohr CNP, she would like patient to come in today for his labs, have a BP check and possible IVF. RN called patient who can get a ride to the clinic and should be here around 1pm. Patient added to the schedule and the patient coordinator front desk updated.
[2024-01-04 13:09] LABS: Basophils Percent Auto 0.6 % (0.0-3.0); Eosinophils Percent Auto 1.4 % (0.0-7.0); Hematocrit 30.4 % (37.0-53.0); Hemoglobin* 9.3 gm/dL (13.5-17.5); Immature Granulocytes Pct Auto 0.2 %; Lymphocytes Percent Auto 6.5 % (20-44); Mean Corpuscular HGB Conc 31 gm/dL (32-36); Mean Corpuscular Hemoglobin 32 pg (26-34); Mean Corpuscular Volume 103 fL (80-100); Monocytes Percent Auto 2.6 % (0.0-11.0); Neutrophils Percent Auto 88.7 % (42.0-72.0); Platelet Count* 287 K/uL (140-440); RDW Coefficient of Variation % 18.3 % (11.5-15.5); Red Blood Count 2.95 m/uL (4.30-5.90); White Blood Count* 12.45 K/uL (4.50-11.00)
[2024-01-04 13:14] LABS: Slide Review Reflex No
[2024-01-04 13:26] LABS: Albumin* 3.9 g/dL (3.3-5.0); Chloride* 104 mmol/L (96-114); Potassium* 4.6 mmol/L (3.6-5.1); Sodium* 134 mmol/L (135-149)
[2024-01-04 13:29] LABS: Alanine Aminotransferase* 31 U/L (4-50); Alkaline Phosphatase* 100 U/L (40-150); Anion Gap 8 mEq/L (7-15); Aspartate Amino Transferase* 25 U/L (12-35); Bilirubin Total* 0.2 mg/dL (0.1-1.5); Blood Urea Nitrogen* 29 mg/dL (7-30); Carbon Dioxide* 22 mmol/L (20-32); Creatinine* 1.2 mg/dL (0.5-1.5); Est. Creatinine Clearance* 57.99; Estimated Glomerular Filt Rate 65 ml/min; Glucose* 123 mg/dL (60-115); Total Protein* 6.3 g/dL (6.0-8.3)
[2024-01-04 13:30] LABS: Calcium* 9.5 mg/dL (8.4-10.6)
--- NOTE | 2024-01-04 15:11 | ONC.NURNOTE ---
Patient seen in clinic, after lab draw. BP's similar to at home, normal sitting and lower when standing. See EMR for results. Labs reviewed with Lori Mohr, KACIE, WBC elevated, patient denies and S/S of infection or a fever. Patient is currently on prednisone. Hgb down slightly to 9.3. CMP looks good with no signs of dehydration. Advised patient to continue pushing fluids, add some salt into his diet and to be careful with position changes to help minimize lightheadedness. Patient will be seen by Dr. Dudley tomorrow. Patient to go to ER in meantime if BP gets worse. Patient verbalized understanding and agreeable to the plan.
[2024-01-07 13:34] VITALS: BP 135/66; PULSE 82; RESP 16; TEMP 36; O2SAT 97
[2024-01-07] MEDS: 0.9 % SODIUM CHLORIDE 250 ml IV (14:13)
[2024-01-07] MEDS: SODIUM CHLORIDE 0.9 % (FLUSH) 10 ML SYRINGE IVF (14:13)
[2024-01-07] MEDS: PALONOSETRON 0.25 MG/5 ML inj IV (14:14)
[2024-01-07] MEDS: dexAMETHasone 10 MG/ML inj IVP (14:17)
[2024-01-07] MEDS: DURVALUMAB 1,500 MG, TUBING PRIMARY 1 EACH, In-line 0.2 micron filter set 1 EACH in 0.9... 280 MG IVPB (14:27)
[2024-01-07] MEDS: PEMETREXED IV (15:32)
[2024-01-07] MEDS: [UNRECOGNIZED DRUG - OTHER] IV (15:32)
[2024-01-07] MEDS: TUBING SECONDARY IV (15:32)
[2024-01-07] MEDS: CYANOCOBALAMIN 1,000 MCG/ML inj 1000 MCG IM (15:51)
[2024-01-27 14:05] LABS: Basophils Absolute Auto 0.03 K/uL (0.00-0.30); Basophils Percent Auto 0.3 % (0.0-3.0); Eosinophils Absolute Auto 0.01 K/uL (0.00-0.50); Eosinophils Percent Auto 0.1 % (0.0-7.0); Hematocrit 25.5 % (37.0-53.0); Immature Granulocytes Abs Auto 0.09 K/uL (0.00-0.30); Lymphocytes Percent Auto 12.3 % (20-44); Mean Corpuscular HGB Conc 29 gm/dL (32-36); Mean Corpuscular Hemoglobin 32 pg (26-34); Mean Corpuscular Volume 109 fL (80-100); Monocytes Percent Auto 4.2 % (0.0-11.0); Neutrophils Percent Auto 82.1 % (42.0-72.0); Platelet Count* 355 K/uL (140-440); RDW Coefficient of Variation % 19.9 % (11.5-15.5); Red Blood Count 2.34 m/uL (4.30-5.90); White Blood Count* 9.19 K/uL (4.50-11.00)
[2024-01-27 14:25] LABS: Chloride* 104 mmol/L (96-114)
[2024-01-27 14:26] LABS: Albumin* 4.1 g/dL (3.3-5.0); Potassium* 4.5 mmol/L (3.6-5.1); Sodium* 136 mmol/L (135-149)
[2024-01-27 14:28] LABS: Bilirubin Total* 0.1 mg/dL (0.1-1.5); Creatinine* 1.2 mg/dL (0.5-1.5); Est. Creatinine Clearance* 59.97; Estimated Glomerular Filt Rate 65 ml/min
[2024-01-27 14:29] LABS: Alanine Aminotransferase* 49 U/L (4-50); Alkaline Phosphatase* 81 U/L (40-150); Anion Gap 9 mEq/L (7-15); Aspartate Amino Transferase* 29 U/L (12-35); Blood Urea Nitrogen* 24 mg/dL (7-30); Carbon Dioxide* 23 mmol/L (20-32); Glucose* 160 mg/dL (60-115); Total Protein* 6.4 g/dL (6.0-8.3)
[2024-01-27 14:30] LABS: Calcium* 9.2 mg/dL (8.4-10.6); Hemoglobin* 7.5 gm/dL (13.5-17.5); Slide Review Reflex Yes
[2024-01-27 14:49] LABS: Slide Review Acceptable Review (Acceptable)
[2024-01-28 09:33] VITALS: BP 143/75; PULSE 75; RESP 16; TEMP 36.8; O2SAT 100
[2024-01-28 09:50] VITALS: BP 145/68; PULSE 69; RESP 16; TEMP 36.7; O2SAT 97
[2024-01-28 10:17] LABS: Fecal Occult Blood* Positive (Negative)
[2024-01-28 10:25] VITALS: BP 157/71; PULSE 71; RESP 16; TEMP 36.8; O2SAT 96
[2024-01-28 10:50] VITALS: BP 137/75; PULSE 71; RESP 16; TEMP 37.1; O2SAT 96
[2024-01-28 11:20] VITALS: BP 163/79; PULSE 63; RESP 16; TEMP 36.4; O2SAT 99
[2024-01-28 12:44] VITALS: BP 157/76; PULSE 63; RESP 16; TEMP 36.1; O2SAT 100
--- NOTE | 2024-02-03 12:13 | URNOTE ---
Received request for prior authorization for Durvalumab (Ezio) [id number]. Per [employer], this has been approved 02/04/2024 to 08/03/2024, Approval #[id number].
[2024-02-04 10:35] VITALS: BP 124/74; PULSE 91; RESP 16; TEMP 36.7; O2SAT 97
[2024-02-04 10:50] LABS: Basophils Percent Auto 0.8 % (0.0-3.0); Eosinophils Percent Auto 0.5 % (0.0-7.0); Hemoglobin* 9.8 gm/dL (13.5-17.5); Immature Granulocytes Pct Auto 0.7 %; Lymphocytes Percent Auto 9.1 % (20-44); Mean Corpuscular HGB Conc 30 gm/dL (32-36); Mean Corpuscular Hemoglobin 31 pg (26-34); Mean Corpuscular Volume 105 fL (80-100); Monocytes Percent Auto 3.6 % (0.0-11.0); Neutrophils Percent Auto 85.3 % (42.0-72.0); Platelet Count* 304 K/uL (140-440); RDW Coefficient of Variation % 18.5 % (11.5-15.5); Red Blood Count 3.14 m/uL (4.30-5.90); White Blood Count* 12.11 K/uL (4.50-11.00)
[2024-02-04 10:52] LABS: Slide Review Reflex No
[2024-02-04 11:02] LABS: Albumin* 4.5 g/dL (3.3-5.0); Chloride* 104 mmol/L (96-114); Potassium* 4.1 mmol/L (3.6-5.1); Sodium* 135 mmol/L (135-149)
[2024-02-04 11:04] LABS: Bilirubin Total* 0.1 mg/dL (0.1-1.5); Creatinine* 1.4 mg/dL (0.5-1.5); Est. Creatinine Clearance* 51.63; Estimated Glomerular Filt Rate 54 ml/min
[2024-02-04 11:05] LABS: Alanine Aminotransferase* 39 U/L (4-50); Alkaline Phosphatase* 88 U/L (40-150); Anion Gap 7 mEq/L (7-15); Aspartate Amino Transferase* 25 U/L (12-35); Blood Urea Nitrogen* 31 mg/dL (7-30); Calcium* 9.9 mg/dL (8.4-10.6); Carbon Dioxide* 24 mmol/L (20-32); Glucose* 84 mg/dL (60-115); Total Protein* 6.9 g/dL (6.0-8.3)
[2024-02-04 11:50] LABS: Appearance Urine Clear (Clear); Bilirubin Urine Negative (Negative); Blood Urine Negative (Negative); Color Urine Yellow (Yellow); Glucose Urine Negative (Negative); Ketones Urine Negative (Negative); Leukocyte Esterase Urine Negative (Negative); Nitrite Urine Negative (Negative); Protein Urine 1+ (Negative); Specific Gravity Urine 1.025 (1.000-1.030); Urobilinogen Urine 0.2 (0.2-1.0); pH Urine 5.5 (5.0-8.5)
[2024-02-04 11:57] LABS: RBC Urine 0-2 (0-2); WBC Urine 0-2 (0-5)
[2024-02-04] MEDS: DURVALUMAB 1,500 MG, TUBING PRIMARY 1 EACH, In-line 0.2 micron filter set 1 EACH in 0.9... 280 MG IVPB (12:33)
[2024-02-04] MEDS: PALONOSETRON 0.25 MG/5 ML inj IV (13:39)
[2024-02-04] MEDS: dexAMETHasone 10 MG/ML inj IVP (13:42)
[2024-02-04] MEDS: TUBING SECONDARY IV (13:59)
[2024-02-04] MEDS: [UNRECOGNIZED DRUG - OTHER] IV (13:59)
[2024-02-04] MEDS: PEMETREXED IV (13:59)
[2024-02-10] VITALS (8 sets, daily range): BP systolic 99–167; BP diastolic 62–88; PULSE 75–112; RESP 16–18; TEMP 36.2–37.1; O2SAT 96–100
[2024-02-10 08:30] LABS: Basophils Absolute Auto 0.07 K/uL (0.00-0.30); Basophils Percent Auto 0.7 % (0.0-3.0); Eosinophils Absolute Auto 0.07 K/uL (0.00-0.50); Eosinophils Percent Auto 0.7 % (0.0-7.0); Hematocrit 27.5 % (37.0-53.0); Hemoglobin* 8.4 gm/dL (13.5-17.5); Immature Granulocytes Abs Auto 0.04 K/uL (0.00-0.30); Immature Granulocytes Pct Auto 0.4 %; Lymphocytes Percent Auto 7.1 % (20-44); Mean Corpuscular HGB Conc 31 gm/dL (32-36); Mean Corpuscular Hemoglobin 32 pg (26-34); Mean Corpuscular Volume 103 fL (80-100); Monocytes Percent Auto 0.3 % (0.0-11.0); Neutrophils Percent Auto 90.8 % (42.0-72.0); Platelet Count* 214 K/uL (140-440); RDW Coefficient of Variation % 16.9 % (11.5-15.5); Red Blood Count 2.67 m/uL (4.30-5.90); White Blood Count* 9.41 K/uL (4.50-11.00)
[2024-02-10 08:35] LABS: Slide Review Reflex Yes
[2024-02-10 08:54] LABS: Slide Review Acceptable Review (Acceptable)
--- NOTE | 2024-02-10 09:56 | ONC.NURNOTE ---
Patient called and radio news writer let him know his platelets and sent new order to pharmacy for N-Plate. Patient scheduled for Thursday
[2024-02-10 10:25] LABS: Chloride* 101 mmol/L (96-114); Sodium* 133 mmol/L (135-149)
[2024-02-10 10:28] LABS: Creatinine* 1.1 mg/dL (0.5-1.5); Est. Creatinine Clearance* 65.71; Estimated Glomerular Filt Rate 72 ml/min
[2024-02-10 10:29] LABS: Anion Gap 6 mEq/L (7-15); Blood Urea Nitrogen* 21 mg/dL (7-30); Calcium* 9.4 mg/dL (8.4-10.6); Carbon Dioxide* 26 mmol/L (20-32); Glucose* 116 mg/dL (60-115)
[2024-02-16 09:04] LABS: Basophils Percent Auto 0.7 % (0.0-3.0); Eosinophils Percent Auto 2.4 % (0.0-7.0); Hematocrit 23.6 % (37.0-53.0); Immature Granulocytes Pct Auto 0.4 %; Lymphocytes Percent Auto 31.1 % (20-44); Mean Corpuscular HGB Conc 31 gm/dL (32-36); Mean Corpuscular Hemoglobin 31 pg (26-34); Mean Corpuscular Volume 101 fL (80-100); Monocytes Percent Auto 19.1 % (0.0-11.0); Neutrophils Percent Auto 46.3 % (42.0-72.0); Platelet Count* 158 K/uL (140-440); RDW Coefficient of Variation % 17.7 % (11.5-15.5); Red Blood Count 2.34 m/uL (4.30-5.90)
[2024-02-16 09:05] VITALS: BP 134/62; PULSE 73; RESP 18; TEMP 36; O2SAT 97
[2024-02-16 09:26] LABS: Hemoglobin* 7.3 gm/dL (13.5-17.5)
[2024-02-16 09:27] LABS: Slide Review Reflex Yes
[2024-02-16 09:31] LABS: Slide Review Acceptable Review (Acceptable)
--- NOTE | 2024-02-16 10:00 | PC.NURSE ---
Pt presented to [facility] for labs prior to scheduled brain MRI. Pt notes that he is lightheaded and weak. He also reports a black tarry stool this morning. Pt shared that he had to sit down while showering this morning. Labs drawn and pt sent for MRI. Upon returning from imaging, pt reported that he was unable to tolerate the MRI. His hgb resulted at 7.3. RN called report and brought pt to ER.
[2024-02-25 10:28] LABS: Hemoglobin* 10.1 gm/dL (13.5-17.5)
[2024-03-02 11:00] LABS: Basophils Absolute Auto 0.17 K/uL (0.00-0.30); Eosinophils Absolute Auto 0.26 K/uL (0.00-0.50); Hematocrit 33.3 % (37.0-53.0); Hemoglobin* 10.1 gm/dL (13.5-17.5); Immature Granulocytes Abs Auto 0.03 K/uL (0.00-0.30); Immature Granulocytes Pct Auto 0.3 %; Lymphocytes Absolute Auto 1.82 K/uL (0.90-2.90); Lymphocytes Percent Auto 21.2 % (20-44); Mean Corpuscular HGB Conc 30 gm/dL (32-36); Mean Corpuscular Hemoglobin 31 pg (26-34); Mean Corpuscular Volume 101 fL (80-100); Monocytes Percent Auto 9.6 % (0.0-11.0); Neutrophils Absolute Auto 5.48 K/uL (1.7-7.0); Neutrophils Percent Auto 63.9 % (42.0-72.0); Platelet Count* 308 K/uL (140-440); RDW Coefficient of Variation % 17.5 % (11.5-15.5); Red Blood Count 3.29 m/uL (4.30-5.90); White Blood Count* 8.58 K/uL (4.50-11.00)
[2024-03-02 11:03] LABS: Slide Review Reflex No
[2024-03-02 11:12] LABS: Chloride* 104 mmol/L (96-114); Sodium* 136 mmol/L (135-149)
[2024-03-02 11:14] LABS: Alkaline Phosphatase* 103 U/L (40-150); Anion Gap 6 mEq/L (7-15); Aspartate Amino Transferase* 32 U/L (12-35); Bilirubin Total* 0.3 mg/dL (0.1-1.5); Blood Urea Nitrogen* 18 mg/dL (7-30); Carbon Dioxide* 26 mmol/L (20-32); Creatinine* 1.3 mg/dL (0.5-1.5); Est. Creatinine Clearance* 55.06; Estimated Glomerular Filt Rate 59 ml/min; Total Protein* 6.5 g/dL (6.0-8.3)
[2024-03-02 11:15] LABS: Alanine Aminotransferase* 44 U/L (4-50); Calcium* 9.8 mg/dL (8.4-10.6); Glucose* 97 mg/dL (60-115)
[2024-03-02] MEDS: DURVALUMAB 1,500 MG, TUBING PRIMARY 1 EACH, In-line 0.2 micron filter set 1 EACH in 0.9... 280 MG IVPB (13:05)
[2024-03-02] MEDS: PALONOSETRON 0.25 MG/5 ML inj IV (14:18)
[2024-03-02] MEDS: dexAMETHasone 10 MG/ML inj IVP (14:20)
[2024-03-02] MEDS: TUBING SECONDARY IV (14:27)
[2024-03-02] MEDS: PEMETREXED IV (14:27)
[2024-03-02] MEDS: [UNRECOGNIZED DRUG - OTHER] IV (14:27)
[2024-03-02] MEDS: CYANOCOBALAMIN 1,000 MCG/ML inj 1000 MCG IM (14:31)
--- NOTE | 2024-03-10 09:55 | ONC.NURNOTE ---
Rising TSH Mr. Palacios had routine TSH level drawn with prechemo labs on 03/02/24. It was noted that his TSH is rising from 2.57 to 7.12. He is currently on levothyroxine and dose was adjusted within the past 3 months. I advised nursing that we would monitor his TSH per routine and consider increasing levothyroxine if TSH is above 10. Reviewed this information with Dr. Dudley as well, and she concurs with this.
[2024-03-14] VITALS (11 sets, daily range): BP systolic 109–183; BP diastolic 58–83; PULSE 65–95; RESP 14–20; TEMP 36.3–36.7; O2SAT 93–100
[2024-03-14 08:38] LABS: Hemoglobin* 5.4 gm/dL (13.5-17.5)
--- NOTE | 2024-03-14 11:19 | ONC.NURNOTE ---
Addendum entered by Day Larkin RN 03/14/24 17:00: Post transfusion Hgb 7.7; VSS. Pt feels well; pt and anxious to get on the roads to home before fog turns icy. Reviewed with Dr. Roger via phone. She is comfortable with the increased Hgb and ok'd pt to go home. Per Dr. Roger, reinforced s/s GI bleed, if pt feels off at all or has any concerns about being low that he should call 911 and request to be taken to [facility] or go directly to [facility]. Pt and s/o verbalize understanding. Dr. Roger's team working on scheduling him 03/17 and will contact pt with appt time. Reviewed update with Lori Lopes APRN via phone. Addendum entered by Day Larkin RN 03/14/24 16:00: Reviewed with Dr. Olivia Roger, [facility] PCP. Stop Aspirin. Labs/recent notes/DC summary/endoscopy reports faxed. Recheck Hgb post-transfusion (now). Depending on Hgb results pt to see her in clinic 1st availability, poss 03/17/24; sign writer hand coordinating. [facility] P: [phone] Dr. Roger Direct Line: [phone] Dr. Roger Direct Original Note: Pt here today 2 weeks post chemo for Hgb check. Hgb today 5.4; 10.1 03/02. Pt notes increased SOB/dizziness/balance issues with activity. He reports that he called an ambulance last night after having sudden SOB/weakness, left leg fell asleep while showering. He crawled out of the shower while his s/o called 911. He was able to stabilize at home with O2; was not brought to a hospital. Today Sats 98-100% at rest and is dizzy/lightheaded with standing up, however is not orthostatic with bp 130's/70's to 119/70's with sitting to standing. He is drinking ~ 80 oz water and ~ 24 oz gatorade daily; eating very small amounts. He reports last stool 03/08; he took 2 Senna as he had not had a stool x 2 days. He reports stool was soft, formed, brown; denies rectal bleeding, black tarry stools, bloody stool, etc. Denies nose bleeds, bleeding gums, nausea/vomiting. He is taking Pepcid and Protonix BID.Denies pain. Notes scant blood on tissue with blowing nose; recently obtained humidifier. Encouraged use of humidifier, saline nasal sprays. He notes his episodes of SOB begin with nasal/sinus congestion. Reviewed with Lori Lopes APRN. She reviewed with Dr. Obrien in ED. Plan for 2 units PRBC in [facility] today. Toolroom Clerk to coordinate with Dr. Mikal Gunter, PCP [facility], to take over and expedite care of GI bleed, as it is not oncology related. Pt notes he has an [facility] appt early Apr; hope is to have pt seen this week for work up d/t sudden severe drop in hgb, possibly at [facility] d/t [facility]. Care coordination in process. Reviewed with pt and his s/o if worsening symptoms, any signs of bleeding or if something doesn't seem right/either of them are concerned, to call 911. They verbalize understanding.
[2024-03-14 16:13] LABS: Hemoglobin* 7.7 gm/dL (13.5-17.5)
[2024-03-14 16:43] LABS: Fecal Occult Blood* Negative (Negative)
--- NOTE | 2024-03-17 09:39 | ONC.NURNOTE ---
Fecal Occult Stool result faxed to Dr. Olivia Roger - PCP [facility] Hernandez. F: [phone]
--- NOTE | 2024-03-17 15:59 | ONC.NURNOTE ---
Pt saw PCP partner Dr. Olivia Roger at [facility] today. CBC recheck: Hgb 7.7. Provider ran case by Dr. Shay with ; he recommends pt be seen at [facility] to consider pill camera vs colonoscopy. Provider sent referral.
--- NOTE | 2024-03-18 14:21 | ONC.NURNOTE ---
Addendum entered and electronically signed by Lori Mohr, SHOE STAMPER 03/28/24 09:31: Vineet Tamirnadiaayla confirmed today that his pill cam study at [facility] is scheduled for 04/06/24. Original Note: Called Librado to schedule weekly HGB check until his appointment with [facility], left message for Librado to call back to schedule,let Lori know when he calls back so she can enter the orders.
[2024-03-22 09:33] LABS: Hemoglobin* 8.6 gm/dL (13.5-17.5)
--- NOTE | 2024-03-25 13:14 | URNOTE ---
Received request for prior authorization for Durvalumab (Imfinzi) J9173, Pemetrexed (Alimta) J9305- date range 03-31-2024 to 03-31-2025, Ref#[id number], Palonosetron (Aloxi) J2469 date range 03-31-2024 to 09-28-2024, Ref#[id number]. Per [facility], this has been approved.
[2024-03-28 09:54] LABS: Hemoglobin* 9.3 gm/dL (13.5-17.5)
[2024-03-28 10:13] LABS: Albumin* 4.1 g/dL (3.3-5.0)
[2024-03-28 10:14] LABS: Chloride* 104 mmol/L (96-114); Potassium* 3.9 mmol/L (3.6-5.1); Sodium* 134 mmol/L (135-149)
[2024-03-28 10:16] LABS: Bilirubin Total* 0.2 mg/dL (0.1-1.5); Creatinine* 1.1 mg/dL (0.5-1.5); Est. Creatinine Clearance* 64.51; Estimated Glomerular Filt Rate 72 ml/min
[2024-03-28 10:17] LABS: Alanine Aminotransferase* 35 U/L (4-50); Alkaline Phosphatase* 95 U/L (40-150); Anion Gap 6 mEq/L (7-15); Aspartate Amino Transferase* 29 U/L (12-35); Blood Urea Nitrogen* 19 mg/dL (7-30); Calcium* 9.6 mg/dL (8.4-10.6); Carbon Dioxide* 24 mmol/L (20-32); Glucose* 90 mg/dL (60-115); Total Protein* 6.6 g/dL (6.0-8.3)
[2024-03-28 10:47] LABS: Basophils Absolute Auto 0.15 K/uL (0.00-0.30); Eosinophils Absolute Auto 0.32 K/uL (0.00-0.50); Eosinophils Percent Auto 4.2 % (0.0-7.0); Hematocrit 30.6 % (37.0-53.0); Hemoglobin* 9.4 gm/dL (13.5-17.5); Immature Granulocytes Abs Auto 0.02 K/uL (0.00-0.30); Immature Granulocytes Pct Auto 0.3 %; Lymphocytes Absolute Auto 1.84 K/uL (0.90-2.90); Lymphocytes Percent Auto 24.2 % (20-44); Mean Corpuscular HGB Conc 31 gm/dL (32-36); Mean Corpuscular Hemoglobin 29 pg (26-34); Mean Corpuscular Volume 95 fL (80-100); Monocytes Percent Auto 11.2 % (0.0-11.0); Neutrophils Absolute Auto 4.43 K/uL (1.7-7.0); Neutrophils Percent Auto 58.1 % (42.0-72.0); Platelet Count* 276 K/uL (140-440); RDW Coefficient of Variation % 16.9 % (11.5-15.5); Red Blood Count 3.21 m/uL (4.30-5.90); White Blood Count* 7.61 K/uL (4.50-11.00)
[2024-03-28 10:55] LABS: Slide Review Reflex No
[2024-03-29] MEDS: DURVALUMAB 1,500 MG, TUBING PRIMARY 1 EACH, In-line 0.2 micron filter set 1 EACH in 0.9... 280 MG IVPB (10:31)
[2024-03-29] MEDS: SODIUM CHLORIDE 0.9 % (FLUSH) 10 ML SYRINGE IVF (11:14)
[2024-03-29] MEDS: 0.9 % SODIUM CHLORIDE 250 ml IV (11:14)
[2024-03-29] MEDS: dexAMETHasone 10 MG/ML inj IVP (11:48)
[2024-03-29] MEDS: PALONOSETRON 0.25 MG/5 ML inj IV (11:48)
[2024-03-29] MEDS: CYANOCOBALAMIN 1,000 MCG/ML inj 1000 MCG IM (11:48)
[2024-03-29] MEDS: PEMETREXED IV (12:19)
[2024-03-29] MEDS: [UNRECOGNIZED DRUG - OTHER] IV (12:19)
[2024-03-29] MEDS: TUBING SECONDARY IV (12:19)
--- NOTE | 2024-03-29 14:52 | ONC.NURNOTE ---
Airplane Gastank Liner Assembler faxed Dr. Dudley's recommendation for management of blood thinners to [facility] Dr. Tillman's office. Pt has a copy and a copy was placed in pt's chart.
[2024-04-05 10:26] LABS: Hemoglobin* 8.5 gm/dL (13.5-17.5)
[2024-04-11 08:59] LABS: Hemoglobin* 8.5 gm/dL (13.5-17.5)
--- NOTE | 2024-04-11 11:54 | ONC.NURNOTE ---
Pt here for weekly hgb check: 8.5. 04/05 8.5. Faxed to PCP. Pt feeling asymptomatic for anemia. However pt does note his fiancee is asking if there is an emergency/breakthrough inhaler he can use. He describes wheeziness and slight SOB; denies significant SOB. He is currently on Budesonide inh 2 puffs BID. Reviewing med list, he has Albuterol inhaler listed as reported but not prescribe by our team. Called pt's pharmacy; pt does not have active albuterol inhaler. VSS. Sats 95-96% RA; with ambulation down hallway decreased to 90-91%. Pt recently saw PCP Dr. Gunter with [facility] for pre-op for GI workup procedures done last week. Reviewed situation with Lori Lopes APRN. Recommended pt call PCP for Albuterol prescription and continue follow care for pt's existing diagnoses COPD, etc. Pt agreeable to this plan. Instructed pt to call [facility] if any worsening of symptoms. Pt verbalizes understanding.
[2024-04-18 09:33] LABS: Basophils Absolute Auto 0.08 K/uL (0.00-0.30); Basophils Percent Auto 1.1 % (0.0-3.0); Eosinophils Absolute Auto 0.31 K/uL (0.00-0.50); Eosinophils Percent Auto 4.1 % (0.0-7.0); Hematocrit 29.5 % (37.0-53.0); Hemoglobin* 8.9 gm/dL (13.5-17.5); Immature Granulocytes Abs Auto 0.01 K/uL (0.00-0.30); Immature Granulocytes Pct Auto 0.1 %; Mean Corpuscular HGB Conc 30 gm/dL (32-36); Mean Corpuscular Hemoglobin 29 pg (26-34); Mean Corpuscular Volume 95 fL (80-100); Monocytes Percent Auto 10.1 % (0.0-11.0); Neutrophils Absolute Auto 5.19 K/uL (1.7-7.0); Neutrophils Percent Auto 68.6 % (42.0-72.0); Platelet Count* 335 K/uL (140-440); Red Blood Count 3.12 m/uL (4.30-5.90); White Blood Count* 7.56 K/uL (4.50-11.00)
[2024-04-18 09:35] LABS: Albumin* 4.2 g/dL (3.3-5.0); Chloride* 103 mmol/L (96-114); Potassium* 3.7 mmol/L (3.6-5.1); Sodium* 135 mmol/L (135-149)
[2024-04-18 09:38] LABS: Alanine Aminotransferase* 48 U/L (4-50); Alkaline Phosphatase* 111 U/L (40-150); Anion Gap 10 mEq/L (7-15); Aspartate Amino Transferase* 26 U/L (12-35); Bilirubin Total* 0.2 mg/dL (0.1-1.5); Blood Urea Nitrogen* 24 mg/dL (7-30); Carbon Dioxide* 22 mmol/L (20-32); Creatinine* 1.1 mg/dL (0.5-1.5); Est. Creatinine Clearance* 64.65; Estimated Glomerular Filt Rate 72 ml/min; Glucose* 111 mg/dL (60-115); Total Protein* 6.6 g/dL (6.0-8.3)
[2024-04-18 09:39] LABS: Calcium* 9.4 mg/dL (8.4-10.6)
[2024-04-18 10:04] LABS: Slide Review Reflex No
[2024-04-18 10:36] LABS: Thyroid Stimulating Hormone* 0.776 uIU/mL (0.270-4.20)
[2024-04-18 10:42] LABS: Magnesium* 2.2 mg/dL (1.5-2.6)
[2024-04-18] MEDS: 0.9 % SODIUM CHLORIDE 500 ML IV (11:15)
[2024-04-18] MEDS: SODIUM CHLORIDE 0.9 % (FLUSH) 10 ML SYRINGE IVF (11:15)
[2024-04-18] MEDS: PALONOSETRON 0.25 MG/5 ML inj IV (11:17)
[2024-04-18] MEDS: dexAMETHasone 10 MG/ML inj IVP (11:17)
[2024-04-18] MEDS: CYANOCOBALAMIN 1,000 MCG/ML inj 1000 MCG IM (11:18)
[2024-04-18] MEDS: TUBING SECONDARY IV (11:56)
[2024-04-18] MEDS: PEMETREXED IV (11:56)
[2024-04-18] MEDS: [UNRECOGNIZED DRUG - OTHER] IV (11:56)
[2024-04-26] VITALS (8 sets, daily range): BP systolic 106–153; BP diastolic 53–78; PULSE 74–94; RESP 16; TEMP 35.9–36.8; O2SAT 94–96
[2024-04-26 08:51] LABS: Basophils Percent Auto 2.6 % (0.0-3.0); Eosinophils Percent Auto 2.6 % (0.0-7.0); Hematocrit 23.8 % (37.0-53.0); Immature Granulocytes Pct Auto 0.7 %; Mean Corpuscular HGB Conc 30 gm/dL (32-36); Mean Corpuscular Hemoglobin 28 pg (26-34); Mean Corpuscular Volume 92 fL (80-100); Monocytes Percent Auto 21.6 % (0.0-11.0); Neutrophils Percent Auto 40.5 % (42.0-72.0); Platelet Count* 105 K/uL (140-440); RDW Coefficient of Variation % 16.3 % (11.5-15.5); Red Blood Count 2.58 m/uL (4.30-5.90)
[2024-04-26 09:19] LABS: White Blood Count* 1.53 K/uL (4.50-11.00)
[2024-04-26 09:20] LABS: Hemoglobin* 7.2 gm/dL (13.5-17.5); Slide Review Reflex Yes
--- NOTE | 2024-04-26 15:02 | ONC.NURNOTE ---
Pt here for Alimta, cbc drawn via port without difficulty. ANC 0.6, hgb 7.2. Pt also c/o poor appetite and more of a gag reflux the last 2 months, pt also c/o no BM for one week and has taken miralax daily x 3 days. Aircraft Cleaner discussed labs and symptoms with Dr. Dudley. Orders received to hold alimta, give pt [address] Dudley also refilled pt's prednisone and also sent script for Levaquin, fluconazole, and acyclovir. It was recommended that pt add senna at bedtime to help with the constipation and to take a prochlorperazine 30 min prior to meals to see if the gag reflux improves. Pt to return in one week to repeat labs and for imfinzi. Pt verbalized understanding of plan of care.
[2024-04-26 18:06] LABS: Slide Review Acceptable Review (Acceptable)
--- NOTE | 2024-05-02 13:07 | ONC.NURNOTE ---
Pt's drug, durvalumab (Imfinzi) not yet delivered. Pt's infusion appointment is set for Thursday, 05/03 morning. Called pt to move appt to afternoon, he prefers Thursday to be certain the drug will be here. Pt's appointment moved per his request and [facility]/pharmacy team notified.
[2024-05-09 08:39] VITALS: BP 123/70; PULSE 80; RESP 16; TEMP 36.2; O2SAT 98
[2024-05-09 08:59] LABS: Basophils Absolute Auto 0.08 K/uL (0.00-0.30); Eosinophils Absolute Auto 0.13 K/uL (0.00-0.50); Eosinophils Percent Auto 1.6 % (0.0-7.0); Hematocrit 27.5 % (37.0-53.0); Hemoglobin* 8.4 gm/dL (13.5-17.5); Immature Granulocytes Abs Auto 0.03 K/uL (0.00-0.30); Immature Granulocytes Pct Auto 0.4 %; Lymphocytes Percent Auto 9.2 % (20-44); Mean Corpuscular HGB Conc 31 gm/dL (32-36); Mean Corpuscular Hemoglobin 29 pg (26-34); Mean Corpuscular Volume 93 fL (80-100); Monocytes Percent Auto 8.1 % (0.0-11.0); Neutrophils Percent Auto 79.7 % (42.0-72.0); Platelet Count* 290 K/uL (140-440); RDW Coefficient of Variation % 17.9 % (11.5-15.5); Red Blood Count 2.95 m/uL (4.30-5.90); White Blood Count* 8.03 K/uL (4.50-11.00)
[2024-05-09 09:16] LABS: Albumin* 3.8 g/dL (3.3-5.0); Chloride* 102 mmol/L (96-114); Sodium* 134 mmol/L (135-149)
[2024-05-09 09:19] LABS: Alanine Aminotransferase* 25 U/L (4-50); Alkaline Phosphatase* 94 U/L (40-150); Anion Gap 9 mEq/L (7-15); Aspartate Amino Transferase* 27 U/L (12-35); Bilirubin Total* 0.2 mg/dL (0.1-1.5); Blood Urea Nitrogen* 22 mg/dL (7-30); Carbon Dioxide* 23 mmol/L (20-32); Creatinine* 1.2 mg/dL (0.5-1.5); Est. Creatinine Clearance* 57.99; Estimated Glomerular Filt Rate 65 ml/min; Glucose* 121 mg/dL (60-115); Slide Review Reflex No; Total Protein* 6.1 g/dL (6.0-8.3)
[2024-05-09 09:20] LABS: Calcium* 9.2 mg/dL (8.4-10.6)
[2024-05-09 09:50] LABS: Thyroid Stimulating Hormone* 0.595 uIU/mL (0.270-4.20)
[2024-05-09] MEDS: DURVALUMAB 1,500 MG, TUBING PRIMARY 1 EACH, In-line 0.2 micron filter set 1 EACH in 0.9... 280 MG IVPB (10:27)
[2024-05-09] MEDS: PALONOSETRON 0.25 MG/5 ML inj IV (11:34)
[2024-05-09] MEDS: dexAMETHasone 10 MG/ML inj IVP (11:34)
[2024-05-09] MEDS: SODIUM CHLORIDE 0.9 % (FLUSH) 10 ML SYRINGE IVF (11:41)
[2024-05-09] MEDS: 0.9 % SODIUM CHLORIDE 500 ML IV (11:41)
[2024-05-09] MEDS: PEMETREXED IV (11:59)
[2024-05-09] MEDS: TUBING SECONDARY IV (11:59)
[2024-05-09] MEDS: [UNRECOGNIZED DRUG - OTHER] IV (11:59)
== END 2024-05-11 23:59 | disposition home or self-care (01) ==
LOC: CCIC 08:30
PROVIDERS: Internal Medicine Hematology & Oncology; Physician Assistant; PCP Family Medicine; Referring Provider Family Medicine; Visit Provider Clinical Nurse Specialist
DX: Z51.11 Encounter for antineoplastic chemotherapy (principal); Z51.12 Encounter for antineoplastic immunotherapy; C34.12 Malignant neoplasm of upper lobe, left bronchus or lung; E03.2 Hypothyroidism due to medicaments and other exogenous substances
CPT/HCPCS: 36415; 36430; 36591; 80048; 80053; 81001; 82024; 82270; 82533; 83735; 84443; 85018; 85025; 86850; 86900; 86901; 86922; 96360; 96372; 96375; 96376; 96409; 96411; 96413; 96417; 99211; 99214; 99215; G0463; J1100; J2469; J3420; J7030; J7050; J9173; J9305; P9016

== ENCOUNTER 2024-05-27 07:03 | Outpatient (CLI) | payer MEDICARE, SELFPAY ==
--- NOTE | 2024-05-27 07:15 | CRLHL7_ITS ---
For Patients: As a result of the Century Cures Act, medical imaging exams and procedure reports are released immediately into your electronic medical record. You may view this report before your referring provider. If you have questions, please contact your health care provider. INDICATION: Lung cancer, staging. TECHNIQUE: Multisequence multiplanar MRI of the brain prior to and following administration of 20 cc Dotarem gadolinium-based intravenous contrast. COMPARISON: Brain dated 02/25/2024. FINDINGS: No focus of abnormal or suspicious enhancement. No evidence of acute ischemia. Similar scattered as well as T2 prolongation within supratentorial white matter and central nancy typical of chronic small vessel ischemic changes. No evidence of recent or remote intracranial hemorrhage. Stable tiny tuber cinereum lipoma. The ventricles are unchanged in size. There is similar mild diffuse parenchymal volume loss. Flow voids of the larger intracranial arteries are preserved. Bone marrow signal intensity of the calvarium is within normal limits. The globes are symmetric. There is similar mild diffuse paranasal sinus mucosal thickening with large right mastoid and middle ear cavity effusions. IMPRESSION: 1. No evidence of intracranial metastasis. 2. Similar mild diffuse parenchymal volume loss and chronic small vessel ischemic changes. 3. As before, mild diffuse paranasal sinus mucosal thickening with large right mastoid and middle ear cavity effusions. Dictated by Lon Hickey MD @ 05/27/2024 11:00:46 PM (Electronically Signed)
== END 2024-05-27 07:04 | disposition home or self-care (01) ==
LOC: MRI 07:05
PROVIDERS: PCP Family Medicine; Visit Provider Internal Medicine Hematology & Oncology
DX: C34.92 Malignant neoplasm of unspecified part of left bronchus or lung (principal); I67.82 Cerebral ischemia
CPT/HCPCS: 70553; A9575

== ENCOUNTER 2024-06-07 10:20 | Outpatient (CLI) | payer MEDICARE, SELFPAY ==
--- NOTE | 2024-06-07 10:45 | CRLHL7_ITS ---
For Patients: As a result of the Century Cures Act, medical imaging exams and procedure reports are released immediately into your electronic medical record. You may view this report before your referring provider. If you have questions, please contact your health care provider. INDICATION: Dyspnea. TECHNIQUE: PA and lateral chest. COMPARISON: 11/09/2023. FINDINGS: Increased opacity in the left lung apex is most likely due to increasing fluid in previously seen loculated air and fluid collection. Lungs are hyperinflated consistent with COPD. No focal consolidation. Right-sided Port-A-Cath. Dictated by Tanner Singh MD @ 06/08/2024 11:16:48 AM (Electronically Signed)
== END 2024-06-07 10:21 | disposition home or self-care (01) ==
LOC: RAD 10:20
PROVIDERS: PCP Family Medicine; Visit Provider Physician Assistant
DX: R06.00 Dyspnea, unspecified (principal); C34.92 Malignant neoplasm of unspecified part of left bronchus or lung; J43.9 Emphysema, unspecified
CPT/HCPCS: 71046

== ENCOUNTER 2024-07-06 08:52 | Outpatient (CLI) | payer MEDICARE, SELFPAY ==
--- NOTE | 2024-07-06 09:15 | CRLHL7_ITS ---
For Patients: As a result of the Century Cures Act, medical imaging exams and procedure reports are released immediately into your electronic medical record. You may view this report before your referring provider. If you have questions, please contact your health care provider. INDICATION: FEELS LIKE FOOD IS GETTING CAUGHT. PT HAS LUNG CANCER TECHNIQUE: Modified barium swallow. Fluoroscopic time 1.36 minutes. FINDINGS/IMPRESSION: Flash laryngeal penetration occurred during the examination without extension below the cords. No obstruction to the flow of barium. Barium tablet tolerated normally. Dictated by Ren Long MD @ 07/06/2024 9:47:33 AM (Electronically Signed)
--- NOTE | 2024-07-06 14:20 | SLP.MBS ---
LICENSED PRACTICAL NURSE INSTRUCTOR Modified Barium Swallow LICENSED PRACTICAL NURSE INSTRUCTOR Modified Barium Swallow Eval Start: 07/06/24 10:06 Text: Status: Active Freq: Protocol: Document 07/06/24 10:06 KELIN (Rec: 07/06/24 10:44 KELIN [id number]) E-signed By Jacinto Osuna, [place] Modified Barium Swallow Evaluation Evaluation Reason for Referral Dysphagia R13.10 Globus sensation R09.A2 Medical Diagnosis Lung cancer of left lung C34. 92 Treatment Diagnosis Oropharyngeal dysphagia Date of Order 06/06/24 Type of Referral Evaluation Onset of Patient's Problem Patient reports issues have been more significant over the past 2-3 months. Pertinent Medical History Patient was diagnosed with left lung cancer in March of 2021 and underwent radiation therapy 5x/week for 5 weeks. He is currently doing palliative chemotherapy every three weeks. Medications Reviewed Subjective/Pain Comment Patient reports have a decreased appetite with his chemotherapy. His swallowing difficulties are described as feeling that food is sticking (solids more than liquids) and he begins gagging after just a few bites. This is the worst at the start of his chemotherapy but by the third week it seems to be better. Assessment/Impressions ASSESSMENT Oral [facility] exam: WNL Trials of thin, puree, solid and barium tablet were administered under fluoroscopy in lateral and A/P views. Thin: presented by spoon, cup, and consecutive swallows by straw. Oral phase: Good oral acceptance and containment. Premature pharyngeal entry. Pharyngeal phase: swallow triggered at the pyriform sinus. Minimal flash penetration during the single cup swallow and penetration to the level of the vocal cords with consecutive straw swallows with a reflexive cough response. No aspiration. Puree: one presentation self- fed by spoon. Oral phase: Good oral acceptance and containment. Premature pharyngeal entry. Minimal oral residue along base of tongue with patient initiating a second swallow that cleared residue. Pharyngeal phase: swallow triggered as the bolus spilled over the epiglottis. Flash penetration on second swallow that was independently initiated to clear oral residue with a spontaneous throat clear. No aspiration. Solid: one trial self-fed by spoon. Oral phase: Good oral acceptance and containment. Premature pharyngeal entry. Minimal oral residue along base of tongue with patient initiating a second swallow that cleared residue. Pharyngeal phase: swallow triggered at the pyrifrom. No penetration or aspiration. Barium tablet: tablet stuck in the valleculae after first swallow but second swallow of water moved tablet through pharynx and esophagus with no issues. A/P esophageal sweep: no obvious issues with bolus transport through the esophagus. CARON Roblero is a 68-year-old male with a diagnosis of left lung cancer in 2021 with subsequent radiation therapy and current palliative chemotherapy. He has complaints of globus sensation with solids more than liquids that typically are worse at the start of his chemotherapy but then seem to subside by week three. A video swallow study was completed per provider orders. Under fluoroscopy, patient presents with a functional oropharyngeal swallow. Oral phase marked by minimal to mild oral residue along the base of tongue with solids that clears with a spontaneous double swallow. Pharyngeal phase marked by an thick epiglottis (question radiation effects if that area was part of the radiation field), penetration with both thin liquids by straw and puree that was flash on one instance and to the level of the vocal cords on another. Patient did have a reflexive throat clear and cough to penetrated material. Barium tablet got caught up in the valleculae but a second drink of water cleared tablet and was passed through the esophagus normally . Recommend patient continue with a Regular diet with thin liquids, self-selecting softer food items. Safe swallow strategies include upright for all po and remain upright 30 minutes after meals, small bites at a slow rate with a double swallow, small single sips by cup (no straw). Patient would benefit from outpatient speech therapy for a trial of oropharyngeal exercise program; six sessions over the next 8-10 weeks. Goals/Functional Outcomes Patient goal: be able to eat without gagging LTG: Patient will report improved swallowing as measured by an improved score on the EAT-10. STG: Patient will understand the results and recommendations of today's evaluation. STG: Patient will tolerate a Regular diet with thin liquids with no no overt s/sx of aspiration and reduced overt s /sx of penetration independently. STG: Patient will independently complete oropharyngeal exercises as outlined by LICENSED PRACTICAL NURSE INSTRUCTOR in HEP. STG: Patient will verbalize understanding of safe swallow strategies and be able to use independently. Modified Barium Swallow Education Education Topics Teaching Recipient Patient Teaching Methods Verbal Response to Teaching Verbalize Understanding Certification Certification Statement I Certify That: Therapy Services Provided, Therapy Plan Established, Therapy Plan Reviewed Certification Information Clinic ID # [id number] Initial Certification Date 07/06/24 Recertification Due Date 09/19/24 Provider Signature Required Yes Provider Signature Shows Agreement With POC & Medical Necessity Physician NPI Number Write NPI# Here Physician Comment/Change Comment or Changes Physician Signature & Date Requested Please Sign/Date Here Insurance Information Insurance Information Insurance Information [employer] Provider Referring Provider Meghan SPARROW Speech/Language Pathology Billing Units Billing Units Eval Swallow Motion Fluoro 1
== END 2024-07-06 08:53 | disposition home or self-care (01) ==
LOC: RAD 08:53
PROVIDERS: PCP Family Medicine; Visit Provider Clinical Nurse Specialist
DX: R13.10 Dysphagia, unspecified (principal); C34.90 Malignant neoplasm of unspecified part of unspecified bronchus or lung
CPT/HCPCS: 74230; 92526; 92611

== ENCOUNTER 2024-08-26 10:00 | Outpatient (RCR) | payer MEDICARE, SELFPAY | END 2024-12-24 23:59 | disposition home or self-care (01) | PROVIDERS: PCP Family Medicine; Visit Provider Physician Assistant | DX: C34.90 Malignant neoplasm of unspecified part of unspecified bronchus or lung (principal); R13.10 Dysphagia, unspecified; Z51.89 Encounter for other specified aftercare | CPT/HCPCS: 92526; 92610 ==

== ENCOUNTER 2024-08-28 15:51 | Emergency (ER) | payer MEDICARE, SELFPAY ==
--- OUTSIDE RECORDS SUMMARY | 2024-08-08 23:30 | XMS_ITS | Continuity of Care Document ---
Author Organization [facility] Address [address] [address] [place] [address] Phone Care Team Providers Care Bridge Game Director Name Role Phone No Information Unavailable Unavailable Allergies, Adverse Reactions, Alerts Substance Reaction Status Criticality carboplatin HivesHives Active No Information Medications Medication Instructions Dosage Effective Dates (start - stop) Status Comments magnesium 200 mg tablet take 1 by Oral route every day 1 - Active levothyroxine 125 mcg capsule take 1 capsule by oral route every day 125 MCG - Active Flonase Allergy Relief 50 mcg/actuation nasal spray,suspension spray 1 - 2 spray by intranasal route every day in each nostril as needed 50-100 MCG - Active pantoprazole 40 mg tablet,delayed release take 1 tablet by oral route every day 30 min before BK 40 MG - Active famotidine 10 mg tablet take 1 tablet by oral route every day as needed 10 MG - Active folic acid 0.8 mg capsule - Active Symbicort 160 mcg-4.5 mcg/actuation HFA aerosol inhaler inhale 2 puff by inhalation route 2 times every day in the morning and evening 2.00 puff - Active Eliquis 5 mg tablet take 1 tablet by oral route 2 times every day 5 MG - Active cyclobenzaprine ER 15 mg capsule,extended release 24 hr take 1 capsule by oral route every day 15 MG - Active B Complex 1.7 mg-20 mg-2 mg-1.2 mg/mL sublingual liquid - Active Procedures Procedure Date cancelled appt Offic/outpt E&m [facility] 2 25 Sm Intest Endo; W/ablat Tumor 5 Offic/outpt E&m [facility] [place] Advance Directives Directive Yes / No Effective Date File Name No Information Encounters Encounter Description Practice Location Reason(s) For Visit Diagnoses Date Provider Providers Copied on Encounter [facility], [address] [address], [place], [id number], [place] tel:[phone] No Information No Information [facility] [address] [address], [place], [id number], [place] tel:[phone] [facility] GI Symptoms or Concerns (chief complaint) AVM (arteriovenous malformation) of small bowel, acquired 5 Tommy FOSTER Lisandro. [address], [id number], [place]. tel:[phone] Referring Provider: Referral Self, USE FOR SELF REFERRALS. Offic/outpt E&m [facility], [address] [address], [place], [id number], [place] tel:[phone] [facility] GI Symptoms or Concerns (chief complaint) Chronic iron deficiency anemiaAVM (arteriovenous malformation) of small bowel, acquired 5 Bill Lorenzo [address], [id number], [place]. tel:[phone] Referring Provider: Referral Self, USE FOR SELF REFERRALS. [facility] [address] [address], [place], [id number], [place] tel:[phone] [facility] No Information 5 Bill Lorenzo [address] [facility], [facility] [address], [place], [address], [place]. tel:[phone] Referring Provider: Constance Khan MD, [address] [facility] [address], [place], [address]. tel:[phone] [facility], [address] [address], [place], [place], [id number], [place] tel:[phone] [facility] Chronic iron deficiency anemiaMelena 5 Primo Pedraza. [address] [facility], [facility] [address], [place], [id number], [place]. tel:[phone] Offic/outpt E&m [place] [facility], [address] [address], [place], [place], [id number], [place] tel:[phone] [facility] GI Symptoms or Concerns (chief complaint) MelenaChronic constipation 5 Primo Pedraza. [address] [facility], [facility] [address], [place], [id number], [place]. tel:[phone] Referring Provider: Olivia Roger DO, [address] [place] [address], [address]. tel:[phone] [facility] [place], [address] [address], [place], [place], [address], [place] tel:[phone] [facility] No Information 5 Desean Davies. [address] [facility], [facility] [address], [place], [address], [place]. tel:[phone] Family History Family Member Type Diagnosis Age At Onset No Information Immunizations Vaccine Date Status Comments tetanus toxoid, reduced diphtheria toxoid, and acellular pertussis vaccine, adsorbed administered Note: [facility] b i-directional interface ; Source: Other Registry zoster vaccine recombinant administered N ote: [facility] bi-directional interface ; Source: Other Registry Influenza, adjuvanted, inactivated, trivalent, injectable, preservative free administered Note: [facility] bi-directional interface ; Source: Other Registry SARS-COV-2 (COVID-19) vaccin e, mRNA, spike protein, LNP, preservative free, 50 mcg/0.5 mL dose administered Note: [facility] bi-direct ional interface ; Source: Other Registry zoster vaccine recombinant administered N ote: [facility] bi-directional interface ; Source: Other Registry SARS-COV-2 (COVID-19) vaccin e, mRNA, spike protein, LNP, preservative free, 50 mcg/0.5 mL dose administered Note: [facility] bi-direct ional interface ; Source: Other Registry Influenza, adjuvanted, inactivated, quadrivalent, injectable, preservative free administered Note: [facility] bi-directional interface ; Source: Other Registry Influenza, high-dose, split virus, quadrivalent, injectable, preservative free administered Note: [facility] bi-direct ional interface ; Source: Other Registry SARS-COV-2 (COVID-19) vaccin e, mRNA, spike protein, LNP, bivalent, preservative free, 50 mcg/0.5 mL or 25 mcg/0.25 mL dose administered Note: [facility] bi- directional interface ; Source: Other Registry Pneumococcal conjugate vacci ne 20-valent (PCV20), polysaccharide [id number] conjugate, adjuvant, preservative free administered Note: [facility] bi-direct ional interface ; Source: Other Registry SARS-COV-2 (COVID-19) vaccin e, mRNA, spike protein, LNP, preservative free, 100 mcg/0.5mL dose or 50 mcg/0.25mL dose administered Note: [facility] bi -directional interface ; Source: Other Registry Influenza, adjuvanted, inactivated, quadrivalent, injectable, preservative free administered Note: [facility] bi-directional interface ; Source: Other Registry SARS-COV-2 (COVID-19) vaccin e, mRNA, spike protein, LNP, preservative free, 100 mcg/0.5mL dose or 50 mcg/0.25mL dose administered Note: [facility] bi -directional interface ; Source: Other Registry SARS-COV-2 (COVID-19) vaccin e, mRNA, spike protein, LNP, preservative free, 100 mcg/0.5mL dose or 50 mcg/0.25mL dose Apr-07-2021 administered Note: [facility] bi -directional interface ; Source: Other Registry SARS-COV-2 (COVID-19) vaccin e, mRNA, spike protein, LNP, preservative free, 100 mcg/0.5mL dose or 50 mcg/0.25mL dose administered Note: [facility] bi -directional interface ; Source: Other Registry Influenza, high-dose, split virus, quadrivalent, injectable, preservative free administered Note: [facility] bi-direct ional interface ; Source: Other Registry Afluria Qd administered Note: [facility] bi-directional interface ; Source: Other Registry tetanus toxoid, reduced diphtheria toxoid, and acellular pertussis vaccine, adsorbed administered Note: [facility] b i-directional interface ; Source: Other Registry Payers Payer name Insurance type Covered republican ID Authoriza tion(s) No Information Social History Type Description Quantity Date Captured Comments Sex Male Smoking Status No Information Chief Complaint And Reason For Visit No Information Reason For Referral Reason For Referral No Information Plan Of Treatment Date Type Action Status Referral Ordered: Small Bowel Enteroscopy Appointment date/timeframe: 04/06/2024 ordered Referral Ordered: Small Bowel PillCam Appointment date/timeframe: 04/06/2024 ordered Appointment Osbaldo Palacios BOOKED History Of Present Illness Encounter Date Complaint History Of Prese nt Illness GI Symptoms or Concerns GI Symptoms or Concerns This is a pleasant 68-year-old male with history of chronic 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 I was able to review his outside records from his primary care provider. He is currently on Eliquis. He has a history of lung cancer for which he is taking immunotherapy. He has a history of jugular vein thrombosis and DVT.I saw him in March for a small bowel enteroscopy. He had several AVMs in his duodenum that were ablated with APC. In February 2024 he had an EGD and [place] that also showed AVM small bowel. A colonoscopy in October 2023 showed a poor prep. Small amount of blood was seen in the terminal ileum.The patient reports that initially his hemoglobin was stable after his enteroscopy. However his last hemoglobin was 7.6. He was given a transfusion. He has not noticed any blood in his stool. He also reports trouble swallowing. He has a poor appetite and feels like he needs to gag when he eats. He denies aspiration or feeling like food gets stuck. He has a poor appetite and his weight is down about 13 pounds.He also has constipation. He can go up to 5 days without having a bowel movement. He has some MiraLAX at home but has not been taking it.He denies any fevers, chills, chest pain, abdominal pain, diarrhea and obvious blood in his stool. GI Symptoms or Concerns Very ple asant 68-year-old male who presents to the GI clinic to establish care for iron deficiency anemia and melena at the request of his primary care physician, Dr. Marie Roger. Patient was seen at anemia/GI bleed at [facility] 02/15 to 02/18/2024 (taking aspirin and Eliquis for recent jugular vein thrombosis(taking x for 5 months, likely indefinite but patient meeting with hematology oncology tomorrow).Per PCPs notes on 03/17/2024, patient's hemoglobin had dropped to 5.9 on 03/14 for which she received 2 units PRBCs and hemoglobin improved to 7.7. He notes that his stools have been better since and he has not seen much in terms of recurrent melena and stools are hard and brown for the most part.Recent GI workup for bleedingUpper endoscopy February 18, 2024: Antral gastritis, duodenitis in the bulb, small angiectasia's without bleeding was found in the second portion of the duodenum. It does not appear that these were treated-confirmed with patient.Upper endoscopy November 10, 2023, done for continued anemia/bleeding normal except for medium hiatal hernia per report.Colonoscopy November 10, 2023 moderate amount of stool in the entire colon, prep remain poor. Entire colon had hematin, TI contained hematin suggestive of small bladder bleedingUpper endoscopy October 30 2023: Mild gastritis, patchy mildly erythematous mucosa without active bleeding in D3.Prior GI workup Colonoscopy 1 11/28/2020, good prep, normal colon09/01/2013, 3 polyps, 1 large, biopsies consistent with tubular adenomas. Functional Status Date Functional Assessmen t No Information Instructions Date Instruction Additional Infor alberto 1. Will schedule an enteroscopy to see if you have any more AVMs that need to be treated2. For your constipation I recommended that you start taking MiraLAX 1 capful in 8 ounces of water daily3. I agree with proceeding with a swallow study to evaluate for reason for your trouble swallowing4. Please discuss potentially starting Remeron as an appetite stimulating medication with your primary care provider or your oncologist. Related to AVM (arteriovenous malformation) of small bowel, acquired EGD reports were onl y available after the patient had left the clinic due to [facility] not being available, and a video capsule was originally ordered, but the plan was modified after review of outside EGDs that showed untreated AVMs and patient was contacted by phone. Therefore we agreed on the following plan 1. Upper endoscopy with push enteroscopy soon a nesthesia reviewed to discuss ASC scheduling versus hospital given history of lung cancer, jugular vein thrombosis, history of DVT.2. Continue watching out for melena and hemoglobin monitoring as ongoing with PCP. Agree with transfusion below 7.3. We will be in touch after your oncology appt. Related to Melena Assessments Type Assessment Date No Information Patient Care Teams Name Effective Dates (start - stop) Status Members No Information
--- OUTSIDE RECORDS SUMMARY | 2024-08-08 23:30 | XMS_ITS | Continuity of Care Document ---
Author Organization [facility] Address [address] [address] [place] [address] Phone Care Team Providers Care Sea Kayaking Guide Name Role Phone No Information Unavailable Unavailable [...] Procedures Procedure Date cancelled appt Offic/outpt E&m [facility] 2 25 Sm Intest Endo; W/ablat Tumor 5 Offic/outpt E&m [facility] [place] Advance Directives Directive Yes / No Effective Date File Name No Information Encounters Encounter Description Practice Location Reason(s) For Visit Diagnoses Date Provider Providers Copied on Encounter [facility], [address] [address], [place], [id number], [place] tel:[phone] No Information No Information [facility] [address] [address], [place], [id number], [place] tel:[phone] [facility] GI Symptoms or Concerns (chief complaint) AVM (arteriovenous malformation) of small bowel, acquired 5 Tommy FOSTER Lisandro. [address], [id number], [place]. tel:[phone] Referring Provider: Referral Self, USE FOR SELF REFERRALS. Offic/outpt E&m [facility], [address] [address], [place], [id number], [place] tel:[phone] [facility] GI Symptoms or Concerns (chief complaint) Chronic iron deficiency anemiaAVM (arteriovenous malformation) of small bowel, acquired 5 Bill Lornezo [address], [id number], [place]. tel:[phone] Referring Provider: Referral Self, USE FOR SELF REFERRALS. [facility] [address] [address], [place], [id number], [place] tel:[phone] [facility] No Information 5 Bill Lorenzo [address] [facility], [facility] [address], [place], [id number], [place]. tel:[phone] Referring Provider: Constance Khan MD, [address] [facility] [address], [place], [address]. tel:[phone] [facility], [address] [address], [place], [place], [id number], [place] tel:[phone] [facility] Chronic iron deficiency anemiaMelena 5 Primo Pedraza. [address] [facility], [facility] [address], [place], [address], [place]. tel:[phone] Offic/outpt E&m [place] [facility], [address] [address], [place], [place], [address], [place] tel:[phone] [facility] GI Symptoms or Concerns (chief complaint) MelenaChronic constipation 5 Primo Pedraza. [address] [facility], [facility] [address], [place], [id number], [place]. tel:[phone] Referring Provider: Olivia Roger DO, [address] [place] [address], [address]. tel:[phone] [facility] [place], [address] [address], [place], [place], [id number], [place] tel:[phone] [facility] No Information 5 Desean Davies. [address] [facility], [facility] [address], [place], [id number], [place]. tel:[phone] Family History Family Member Type Diagnosis Age [...] Pneumococcal conjugate vacci ne 20-valent (PCV20), polysaccharide [id number] conjugate, adjuvant, preservative free administered Note: [facility] [...] Registry Payers Payer name Insurance type Covered democrat ID Authoriza tion(s) No Information Social History [...] February 2024 he had an EGD and [place] that also showed AVM small bowel. A [...] Patient was seen at anemia/GI bleed at [facility] 02/15 to 02/18/2024 (taking aspirin and [...]
[2024-08-28] VITALS (9 sets, daily range): BP systolic 118–140; BP diastolic 65–74; PULSE 62–82; RESP 16–18; TEMP 36.9; O2SAT 91–98; BMI 19.8
--- OUTSIDE RECORDS SUMMARY | 2024-08-28 15:54 | XMS_ITS | Encounter Summary ---
Author Organization [facility] Address [address] [place] [address] Care Team Providers Care Software Development Specialist Name Role Phone Unavailable Primary Care Provider Unavailabl e Reason for Visit * Reason Onset Date Comments Order Request 07/15/2024 Encounter Details Date Type Department Care Team (Late st Contact Info) Description 07/15/2024 Clinical Communication Department of Oncology in [place], [place] [address] [place] [phone] Charity Dudley M.D. [address] [place] [address] Order Request Social History Tobacco Use Types Packs/Day Years Used Date Smoking Tobacco: Every Day Cigarettes 0.3 51.5 Started: 03/16/1973 Smokeless Tobacco: Never Alcohol Use Standard Drinks/Week Comments Yes 9 (1 standard drink = 0.6 oz pur e alcohol) 3-4 daily [facility] Utilities Answer Date Recorded In the past 12 months has [employer], gas, oil, or water [employer] threatened to shut off services in your home? No 08/02/2023 Humiliation, Afraid, Rape, and Kick questionnair e Answer Date Recorded Within the last year, have y ou been afraid of your partner or ex-partner? No 06/19/2022 Within the last year, have y ou been humiliated or emotionally abused in other ways by your partner or ex-partner? No Within the last year, have y ou been kicked, hit, slapped, or otherwise physically hurt by your partner or ex-partner? No 06/19/2022 Within the last year, have y ou been raped or forced to have any kind of sexual activity by your partner or ex-partner? No 06/19/2022 Social Connection and Isolation Panel [NHANES] A nswer Date Recorded In a typical week, how many times do you talk on the phone with family, friends, or neighbors? Twice a week 06/20/19 How often do you get togethe r with friends or relatives? Never 06/19/2022 How often do you attend chur or catholic services? 1 to 4 times per year 06/19/2022 Do you belong to any clubs o r organizations such as restorationist groups, unions, fraternal or athletic groups, or school groups? No 06/19/2022 How often do you attend meet ings of the clubs or organizations you belong to? Never 06/19/2022 Are you , , di vorced, , never , or living with a partner? Living with partner 06/19/2022 AUDIT-C Answer Date Recorded Q1: How often do you have a drink containing alcohol? 4 or more times a week 06/19/2022 Q2: How many drinks containi ng alcohol do you have on a typical day when you are drinking? 1 or 2 3 Q3: How often do you have si x or more drinks on one occasion? Never 06/19/2022 Overall Financial Resource Strain (CARDIA) Answe r Date Recorded How hard is it for you to pa y for the very basics like food, housing, medical care, and heating? Not hard at all 06/19/2022 [facility] Occupat ional Health - Occupational Stress Questionnaire Answer Date Recorded Do you feel stress - tense, restless, nervous, or anxious, or unable to sleep at night because your mind is troubled all the time - these days? Only a little 06/19/2022 Exercise Vital Sign Answer Date Recorde d On average, how many days pe r week do you engage in moderate to strenuous exercise (like a brisk walk)? Patient declined On average, how many minutes do you engage in exercise at this level? Patient declined 08/02/2023 Hunger Vital Sign Answer Date Recorded Within the past 12 months, y ou worried that your food would run out before you got the money to buy more. Never true 08/02/19 24 Within the past 12 months, t he food you bought just didn't last and you didn't have money to get more. Never true 08/02/2023 PRAPARE - Transportation Answer Date Re corded In the past 12 months, has l ack of transportation kept you from medical appointments or from getting medications? No 07/14 In the past 12 months, has l ack of transportation kept you from meetings, work, or from getting things needed for daily living? No 08/02/2023 Nutrition Answer Date Recorded On average, how many serving s of fruits and vegetables do you eat per day (serving size is equal to 1 cup or approximately the size of a tennis ball)? 0-2 08/02/2023 Dental Answer Date Recorded Dental: Regular Dentist Yes 11/25/19 Employment Answer Date Recorded Employment status Employed but not working due t o illness or injury 08/02/2023 Housing Stability Answer Date Recorded What is your living situation today? I have a [facility] place to live 08/02/2023 Education Answer Date Recorded What is the highest level of school you have completed or the highest degree you have received? Some college, no degree 04/01/2021 Sex and Gender Information Value Date Recorded Sex Assigned at Male 04/01/2021 8:09 PM HUMAN RESOURCES EXECUTIVE ASSISTANT Legal Sex Male 11:17 AM HUMAN RESOURCES EXECUTIVE ASSISTANT Gender Identity Male 04/01/2021 8:09 PM HUMAN RESOURCES EXECUTIVE ASSISTANT Sexual Orientation Straight 04/01/2021 8: 09 PM HUMAN RESOURCES EXECUTIVE ASSISTANT documented as of this encounter Miscellaneous Notes * Telephone Encounter - Vangie Adamson - 07/15/2024 1:54 PM CDT Patient Call: Reason for Call: [facility] is requesting orders from Dr. Dudley for hold/ bridge of Eliquis prior to small bowel enteroscopy on July 26. Caller: [facility] - Valid Authorization on File: no Preferred Call Back Number: [phone] fax [phone] Preferred Call Back Time of Day: any - OK to Leave Detailed Message if Unavailable: yes Preferred Pharmacy (if medication related): NA documented in this encounter Plan of Treatment Not on file documented as of this encounter Visit Diagnoses Not on filedocumented in this encounter Additional Health Concerns Infection Onset Date Last Indicated Resolved Time Protective Environment 08/03/2023 08/03/2023 documented as of this encounter
--- OUTSIDE RECORDS SUMMARY | 2024-08-28 15:54 | XMS_ITS | Clinical Summary ---
Author Organization [facility] Address [address] [place] [address] Care Team Providers Care Commercial Helicopter Pilot Name Role Phone Mikal Gunter MD Primary Care Provider [phone] Allergies Active Allergy Reactions Criticality Noted Date Comments Carboplatin Shortness Of Breath,Dizziness,Anaphylaxis,Rash High 10/27/2023 Flushing Medications magnesium 200 MG TABS Take by mouth. Active levothyroxine (SYNTHROID/LEVOTHR OID) 125 MCG tablet Take 125 mcg by mouth every morning (before breakfast). Active predniSONE (DELTASONE) 10 MG tablet Take 10 mg by mouth daily. Active pantoprazole (PROTONIX) 40 MG EC tablet Take 40 mg by mouth daily. Active apixaban ANTICOAGULANT (ELIQUIS) 5 MG tablet Take 5 mg by mouth 2 times daily. Active rosuvastatin (CRESTOR) 20 MG tablet Take 20 mg by mouth daily. Active prochlorperazine (COMPAZINE) 5 MG tablet Take 5 mg by mouth every 6 hours as needed for nausea or vomiting. Active ondansetron (ZOFRAN) 4 MG tablet Take by mouth every 8 hours as needed for nausea. Active folic acid (FOLVITE) 1 MG tablet Take 1 mg by mouth daily. Active famotidine (PEPCID) 20 MG tablet Take 20 mg by mouth 2 times daily. Active aspirin 81 MG EC tablet Take 81 mg by mouth daily. Active traMADol (ULTRAM) 50 MG tablet Take 50 mg by mouth every 6 hours as needed for severe pain. Active budesonide-formote rol (SYMBICORT) 80-4.5 MCG/ACT Inhaler Inhale 2 puffs into the lungs 2 times daily. Active cyclobenzaprine (FLEXERIL) 10 MG tablet Take 10 mg by mouth 3 times daily as needed for muscle spasms. Active gabapentin (NEURONTIN) 100 MG capsule Take 100 mg by mouth 3 times daily. Active calcium carbonate-vitamin D (OSCAL) 500-5 MG-MCG tablet Take 1 tablet by mouth 2 times daily. Active B COMPLEX VITAMINS PO Take by mouth. Active DURVALUMAB IV Inject into the vein. Active enoxaparin ANTICOAGULANT (LOVENOX) 60 MG/0.6ML syringe Inject 60 mg subcutaneous ly. Active Social History Tobacco Use Types Packs/Day Years Used Date Smoking Tobacco: Every Day Cigarettes 0.3 51.5 Started: 03/1973 Smokeless Tobacco: Never Tobacco Cessation:Ready to Q uit: Not Asked Alcohol Use Standard Drinks/Week Comments Yes 0 (1 standard drink = 0.6 oz pur e alcohol) Interpersonal Safety Answer Date Record ed Do you feel physically and e motionally safe where you currently live? Yes 04/06/2024 Within the past 12 months, h ave you been hit, slapped, kicked or otherwise physically hurt by someone? No 04/06/2024 Within the past 12 months, h ave you been humiliated or emotionally abused in other ways by your partner or ex-partner? No 04/06/2024 Sex and Gender Information Value Date Recorded Sex Assigned at Not on file Legal Sex Male 3:40 AM SIDE PULLER Gender Identity Not on file Sexual Orientation Not on file Last Filed Vital Signs Vital Sign Reading Time Taken Comments Blood Pressure 144/81 04/06/2024 3:43 PM SIDE PULLER Pulse 83 04/06/2024 3:00 PM SIDE PULLER Temperature 36.9 C (98.4 F) 04/06/2024 3:43 PM SIDE PULLER Respiratory Rate 16 04/06/2024 3:43 PM SIDE PULLER Oxygen Saturation 92% 04/06/2024 3:43 PM SIDE PULLER Inhaled Oxygen Concentration - - Weight 75.4 kg (166 lb 4.8 oz) 04/06/2024 12:32 PM SIDE PULLER Height 185.4 cm (6' 1) 04/06/2024 12:32 PM SIDE PULLER Body Mass Index 21.94 04/06/2024 12:32 PM SIDE PULLER Plan of Treatment Upcoming Encounters Date Type Department Care Team (Latest Contact Info) Description 10/31/2024 10:30 AM CDT Hospital Encounter [facility] [address] [phone] Constance Khan MD [place] [facility] [address] [place] [address] [address] [id number] 10/31/2024 10:30 AM CDT - 10/31/2024 11:15 AM CDT Surgery [facility] [address] [phone] Constance Khan MD [facility] [address] [place] [address] [address] [id number] small bowel Enteroscopy Scheduled Procedures Name Priority Associated Diagnoses Date/Ti me ENTEROSCOPY AVM (arteriovenous malformation) of small bowel, acquired Anemia Low hemoglobin 10/31/2024 10:30 AM CDT Health Maintenance Due Date Last Done Comments ADVANCE CARE PLANNING 1955 ANNUAL REVIEW OF HM ORDERS 1953 CT COLONOGRAPHY 1953 DIABETES SCREENING 1953 FIT 1953 FLEX SIG 1953 LIPID 1953 NICOTINE/TOBACCO CESSATION COUNSELING Q 1 YR 1953 TSH W/FREE T4 REFLEX 1953 sDNA (Cologuard) 1953 RSV VACCINE (1 - Risk 60-74 years 1-dose series) 2013 AORTIC ANEURYSM SCREENING (SYSTEM ASSIGNED) 2018 FALL RISK ASSESSMENT 2018 PHQ-2 (once per calendar year) 2024 COVID-19 VACCINE (8 - Moderna risk 2023- season) 2024 12/15/2023, 01/26/2023, 12/05/2021, Additional history exists MEDICARE ANNUAL WELLNESS VISIT 12/14/2024 12/15/2023, 09/10/2021, 09/28/2020 LUNG CANCER SCREENING 02/28/2025 02/29/2024, 021 COLONOSCOPY 11/09/2033 11/10/2023 COLORECTAL CANCER SCREENING 11/09/2033 DTAP/TDAP/TD VACCINE (5 - Td or Tdap) 02/22/2034 02/23/2024, 06/09/2013, 04/24/1999, Additional history exists HEPATITIS C SCREENING Completed 06/09/2013 PNEUMOCOCCAL VACCINE 50+ YEARS Completed 09/10/2021 INFLUENZA VACCINE Completed 12/15/2023, , 12/05/2021, Additional history exists ZOSTER VACCINE Completed 02/23/2024, 01/26/2023 HPV VACCINE Aged Out No longer eligi ble based on patient's age to complete this topic MENINGITIS VACCINE Aged Out No longer eligible based on patient's age to complete this topic Goals Goal Patient Goal Type Associated Problems Recent Progress Patient-Stated? Author Autogenera kamlesh Goal Care Plan Autogenerated Problem No KurtzDasia Additional Health Concerns Active Problems Noted Date Diagnosed Date Autogenerated Problem 08/01/2024 Insurance [employer] MEDICARE ADVANTAGE Care Teams Commercial Helicopter Pilot Relationship Specialty [place] [address] [place] [address] PCP - General 04/01/24
--- OUTSIDE RECORDS SUMMARY | 2024-08-28 15:54 | XMS_ITS | Encounter Summary ---
Author Organization [facility] Address [address] [place] [address] Care Team Providers Care Wafer Polishing Worker Name Role Phone Unavailable Primary Care Provider Unavailabl e Encounter Details Date Type Department Care Team (Late st Contact Info) Description 06/16/2024 Clinical Communication Department of Oncology in [place], [place] [address] [place] [phone] Charity Dudley M.D. [address] [place] [phone] Social History Tobacco Use Types Packs/Day Years Used Date Smoking Tobacco: Every Day Cigarettes 0.3 51.5 Started: 03/16/1973 Smokeless Tobacco: Never Alcohol Use Standard Drinks/Week Comments Yes 9 (1 standard drink = 0.6 oz pur e alcohol) 3-4 daily [facility] Utilities Answer Date Recorded In the past 12 months has [facility] [email or web address], gas, oil, or water [employer] threatened to shut off services in your [...] friends, or neighbors? Twice a week 06/20/19 23 How often do you get togethe r with friends or relatives? Never 06/19/2022 How often do you attend chur ch or yazidi services? 1 to 4 times per year 06/19/2022 Do you belong to any clubs o r organizations such as denominational groups, unions, fraternal or athletic groups, or [...] and heating? Not hard at all 06/19/2022 [facility] of Occupat ional Health - Occupational Stress [...] your living situation today? I have a [facility] place to live 08/02/2023 Education Answer Date Recorded What is the highest level of school you have completed or the highest degree you have received? Some college, no degree 04/01/2021 Sex and Gender Information Value Date Recorded Sex Assigned at Male 04/01/2021 8:09 PM COVERSTITCH BINDER Legal Sex Male 11:17 AM COVERSTITCH BINDER Gender Identity Male 04/01/2021 8:09 PM COVERSTITCH BINDER Sexual Orientation Straight 04/01/2021 8: 09 PM COVERSTITCH BINDER documented as of this encounter Plan of Treatment Not on file documented as of this encounter Visit Diagnoses Not on filedocumented in this encounter Additional Health Concerns Infection Onset Date Last Indicated Resolved Time Protective Environment 08/03/2023 08/03/2023 documented as of this encounter
--- OUTSIDE RECORDS SUMMARY | 2024-08-28 15:54 | XMS_ITS | Encounter Summary ---
Author Organization [facility] Address [address] [place] [address] Care Team Providers Care French Folding Machine Operator Name Role Phone Unavailable Primary Care Provider Unavailabl e Encounter Details Date Type Department Care Team (Late st Contact Info) Description 07/06/2024 Clinical Communication Department of Radiation Oncology in [place], [place] [address] [place] [phone] Whit Meade M.D. [address] [place] [address] Social History Tobacco Use Types Packs/Day Years Used Date Smoking Tobacco: Every Day Cigarettes 0.3 51.5 Started: 03/16/1973 Smokeless Tobacco: Never Alcohol Use Standard Drinks/Week Comments Yes 9 (1 standard drink = 0.6 oz pur e alcohol) 3-4 daily [facility] Utilities Answer Date Recorded In the past 12 months has [facility] [employer], gas, oil, or water [employer] threatened to shut off services in your [...] How often do you attend chur or buddhist services? 1 to 4 times per year 06/19/2022 Do you belong to any clubs o r organizations such as anabaptism groups, unions, fraternal or athletic groups, or [...] and heating? Not hard at all 06/19/2022 [facility] of Occupat ional Health - Occupational Stress [...] the money to buy more. Never true 05/19/20 24 Within the past 12 months, t [...] your living situation today? I have a [facility] place to live 08/02/2023 Education Answer Date Recorded What is the highest level of school you have completed or the highest degree you have received? Some college, no degree 04/01/2021 Sex and Gender Information Value Date Recorded Sex Assigned at Male 04/01/2021 8:09 PM ANIMAL CARE WORKER Legal Sex Male 11:17 AM ANIMAL CARE WORKER Gender Identity Male 04/01/2021 8:09 PM ANIMAL CARE WORKER Sexual Orientation Straight 04/01/2021 8: 09 PM ANIMAL CARE WORKER documented as of this encounter Miscellaneous Notes * Telephone Encounter - Bess Orozco - 07/06/2024 10:47 AM CDT Outside Provider/Health Care Facility Inquiry Caller???s name: Jacinto Caller???s role: Speech Therapist Facility name: [facility] Phone number: [phone] Reason for call: Treatment plan, Jacinto called questioning if the patients swallow mechanism was included in the treatment field. She states the patient is having trouble swallowing and she would like to perform a swallow study but is curious if it was included as that would provide answers. She is also wondering if an image of the radiation field could be provided. She would like a call back to discuss. documented in this encounter Plan of Treatment Not on file documented as of this encounter Visit Diagnoses Not on filedocumented in this encounter Additional Health Concerns Infection Onset Date Last Indicated Resolved Time Protective Environment 08/03/2023 08/03/2023 documented as of this encounter
--- OUTSIDE RECORDS SUMMARY | 2024-08-28 15:54 | XMS_ITS | Continuity of Care Document ---
Author Organization [facility] Address [address] [place] [address] Care Team Providers Care Technician Telecommunication Systems Name Role Phone Unavailable Primary Care Provider Unavailabl e Source Comments Patient records contain information from all sites at [facility]. For routine questions regarding patient records, call [phone] during business hours, M-F 8:00 AM - 5:00 PM Central Time. Record requests for emergency care only can be directed to [phone] at any time.[facility] Encounters Date Type Department Care Team Description 08/19/2024 Clinical Communication Division of Vascular and Endovascular Surgery in [place], [place] [address] [place] [address] Pritesh Regan M.B., Ch.B., Ph.D. 07/29/2024 Clinical Communication Department of Radiation Oncology in [address] [address] Whit Meade M.D. 07/15/2024 Clinical Communication Department of Oncology in [place], [place] [address] [place] [address] Charity Dudley M.D. Order Request 07/06/2024 Clinical Communication Department of Radiation Oncology in [address] [address] Whit Meade M.D. 06/16/2024 Clinical Communication Department of Oncology in [place], [place] [address] [place] [address] Charity Dudley M.D. 05/23/2024 9:59 AM CDT - 05/23/2024 11:59 PM CDT Hospital Encounter Department of Radiology in [address] [address] Charity Dudley M.D. 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 02/29/2024 7:57 AM HISTORIC SITE ADMINISTRATOR - 02/29/2024 11:59 PM HISTORIC SITE ADMINISTRATOR Hospital Encounter Department of Radiology in [address] [address] Charity Dudley M.D. 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 11/18/2023 10:20 AM CDT - 11/18/2023 11:59 PM CDT Hospital Encounter Department of Vascular Medicine in [place], [place] [address] [place] [address] Pritesh Regan M.B., Ch.B., Ph.D. 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 Peripheral Arterial Disease (HCC) (Primary Dx) 10/22/2023 Clinical Communication Division of Vascular and Endovascular Surgery in [place], [place] [address] [place] [phone] Pritesh Regan M.B., Ch.B., Ph.D. Carotid Blockage 10/02/2023 Clinical Communication Division of Vascular and Endovascular Surgery in [place], [place] [address] [place] [phone] Pritesh Regan M.B., Ch.B., Ph.D. 10/01/2023 5:38 AM CDT - 10/02/2023 5:14 PM CDT Hospital Encounter [facility], [facility], Eighth Floor [address] [place] [address] Pritesh Regan M.B., Ch.B., Ph.D. 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 Ana Bowie APRN, PHOTO OPTICS TECHNICIAN, DNAP 10/01/2023 7:00 AM CDT - 10/01/2023 10:16 AM CDT Surgery [facility] MAIN OR [address] [place] [phone] Pritesh Regan M.B., Ch.B., Ph.D. IR ENDOVASCULAR ANGIOPLASTY STENT LOWER EXTREMITY, left groin access. 09/29/2023 Clinical Communication Division of Vascular and Endovascular Surgery in [place], [place] [address] [place] [phone] Pritesh Regan M.B., Ch.B., Ph.D. Update on condition before surgery 09/15/2023 Clinical Communication Division of Vascular and Endovascular Surgery in [place], [place] [address] [place] [phone] Pritesh Regan M.B., Ch.B., Ph.D. 09/15/2023 9:40 AM CDT Virtual Visit Division of Vascular and Endovascular Surgery in [place], [place] [address] [place] [phone] Pritesh Regan M.B., Ch.B., Ph.D. 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 Phone Contact 08/16/2023 Orders Only Department of Vascular Medicine in [place], [place] [address] [place] [phone] Ren Burgess M.D. 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 (HCC) (Primary Dx) 08/12/2023 4:45 PM CDT Office Visit Department of Vascular Medicine in [place], [place] [address] [place] [phone] Ren Burgess M.D. 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 (HCC) (Primary Dx); Nicotine Dependence Cigarettes 08/12/2023 1:40 PM CDT Comprehensive Visit Division of Vascular and Endovascular Surgery in [place], [place] [address] [place] [address] Pritesh Regan M.B., Ch.B., Ph.D. 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 (HCC) 08/12/2023 8:23 AM CDT - 08/12/2023 11:59 PM CDT Hospital Encounter Department of Radiology, [facility] in [place], [place] [address] [place] [address] Anh Tamayo M.D. 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 (HCC) Discharge Disposition: Home or Self Care 08/03/2023 3:25 PM CDT - 08/03/2023 11:59 PM CDT Hospital Encounter Department of Vascular Medicine in [place], [place] [address] [place] [address] Avinash Owens M.D. 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 (HCC) Discharge Disposition: Home or Self Care 08/03/2023 10:15 AM CDT Comprehensive Visit Department of Vascular Medicine in [place], [place] [address] [place] [address] Avinash Owens M.D. 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 (HCC) (Primary Dx) 07/14/2023 Clinical Communication Department of Oncology in [place], [place] [address] [place] [phone] Charity Dudley M.D. 07/14/2023 Orders Only Department of Oncology in [place] [address] [place] [address] Charity Dudley M.D. Ischemic Limb (Primary Dx); Aortic Ectasia (HCC) 04/21/2023 Patient Outreach Department of Oncology in [place], [place] [address] [place] [address] Jaden Villarreal M.S.N., R.N., C.M.S.R.N. Tumor Board 04/20/2023 Tumor Board Conference Department of Radiation Oncology in [address] [address] Whit Meade M.D. 09/30/2022 8:59 AM CDT - 09/30/2022 4:51 PM CDT Hospital Encounter Department of Radiation Oncology in [address] [address] Whit Meade M.D. 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 07/08/2022 10:15 AM CDT Anesthesia Event Department of Radiology, [facility], in [place], [place] [address] [place] [phone] Ellyn Robles APRN, CRNA Davidson, Brock C, M.D. 07/08/2022 8:47 AM CDT - 07/08/2022 1:08 PM CDT Hospital Encounter Department of Radiology, [facility], in [place], [place] [address] [place] [phone] Pritesh Tee M.D. Lange, Samantha M, APRN, CRNA, DNAP Lesion Soft Tissue Discharge Disposition: Home or Self Care 06/26/2022 2:00 PM CDT Telemedicine Preoperative Evaluation Center in [place], [place] [address] [place] [address] Pritesh Tee M.D. Annmarie Mayo, ISELA C.N.P., M.S.N. 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 Secondary Malignant Neoplasm Soft Tissue (HCC) 06/04/2022 Orders Only Department of Radiology, [place], [place] [address] [place] [address] Sindhu Muse, R.Heri. Lesion Soft Tissue (Primary Dx) 06/02/2022 Clinical Communication Department [place], [place] [address] [place] [address] Sindhu Muse R.N. Pre-Ablation 06/02/2022 Orders Only Department of Radiation Oncology in [address] [address] Whit Meade M.D. Secondary Malignant Neoplasm Soft Tissue (HCC) (Primary Dx) 05/28/2022 1:10 PM CDT - 05/28/2022 5:10 PM CDT Hospital Encounter Department of Radiation Oncology in [address] [address] Whit Meade M.D. 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 03/07/2022 9:33 AM HISTORIC SITE ADMINISTRATOR - 03/07/2022 11:59 PM HISTORIC SITE ADMINISTRATOR Hospital Encounter Department of Radiation Oncology in [address] [address] Whit Meade M.D. Discharge Disposition: Home or Self Care 03/05/2022 9:35 AM HISTORIC SITE ADMINISTRATOR - 03/07/2022 10:22 AM HISTORIC SITE ADMINISTRATOR Hospital Encounter Department of Radiation Oncology in [address] [address] Whit Meade M.D. Leenstra, James L, M.D. Secondary Malignant Neoplasm Soft Tissue (HCC); Nicotine Dependence 03/05/2022 9:35 AM HISTORIC SITE ADMINISTRATOR - 03/05/2022 11:59 PM HISTORIC SITE ADMINISTRATOR Hospital Encounter Department of Radiation Oncology in [address] [address] Whit Meade M.D. Discharge Disposition: Home or Self Care 03/03/2022 12:56 PM HISTORIC SITE ADMINISTRATOR - 03/03/2022 11:59 PM HISTORIC SITE ADMINISTRATOR Hospital Encounter Department of Radiation Oncology in [address] [address] Whit Meade M.D. Discharge Disposition: Home or Self Care 02/24/2022 9:32 AM HISTORIC SITE ADMINISTRATOR - 02/24/2022 10:55 AM HISTORIC SITE ADMINISTRATOR Hospital Encounter Department of Radiation Oncology in [address] [address] Whit Meade M.D. Secondary Malignant Neoplasm Soft Tissue (HCC) 02/24/2022 8:57 AM HISTORIC SITE ADMINISTRATOR - 02/24/2022 9:31 AM HISTORIC SITE ADMINISTRATOR Hospital Encounter Department of Radiation Oncology in [address] [address] Whit Meade M.D. 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 Secondary Malignant Neoplasm Soft Tissue (HCC) (Primary Dx) 02/14/2022 3:01 PM HISTORIC SITE ADMINISTRATOR - 02/14/2022 5:42 PM HISTORIC SITE ADMINISTRATOR Hospital Encounter Department of Radiation Oncology in [address] [address] Whit Meade M.D. 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 10/23/2021 Orders Only Department of Radiology, [facility], in [place], [place] [address] [place] [address] Annmarie Motta P.A.Mariel., M.S. 10/23/2021 11:56 AM CDT Anesthesia Event Department of Radiology, [facility], in [place], [place] [address] [place] [address] Heavenly Barber APRN, Sanna Jama APRN, PHOTO OPTICS TECHNICIAN 10/23/2021 9:16 AM CDT - 10/23/2021 5:04 PM CDT Hospital Encounter Department of Radiology, [facility], in [address] [address] Pritesh Tee M.D. Goumbala, Matar, APRN, JATIN Lesion Bone Discharge Disposition: Home or Self Care 10/22/2021 1:00 PM CDT Comprehensive Visit Department of Radiology, [facility], in [address] [address] Annmarie Motta P.A.-C., M.S. 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 Lesion Bone Discharge Disposition: Home or Self Care 10/22/2021 6:40 AM CDT - 10/22/2021 10:13 AM CDT [facility] [place] [place] [address] [place] [address] Whit Meade M.D. Lesion Bone Discharge Disposition: Home or Self Care 10/18/2021 1:45 PM CDT Comprehensive Visit Preoperative Evaluation Center in [place], [place] [address] [place] [address] Pritesh Tee M.D. Narr, Bradly J, M.D. Preanesthetic Medical Exam (Primary Dx); Lesion Bone; Emphysema (HCC); Hypertension Essential Primary; Depression Major Recurrent (HCC) 10/17/2021 Clinical Communication Department of Radiology, [facility], in [address] [address] Ibis Correa 10/15/2021 Orders Only Department of Radiology, [facility], in [address] [address] Bre Anguiano Lesion Bone (Primary Dx); Preprocedural Lab Exam; Encounter For Preprocedural Laboratory Examination (COVID-19) 10/10/2021 Patient Outreach Department of Oncology in [place], [place] [address] [place] [address] Jaden Villarreal M.SLeonel., R.N., C.M.S.R.N. 2021 Clinical Communication Department of Radiation Oncology in [address] [address] Whit Meade M.D. 2021 Orders Only Department of Radiology, [address] [address] Moody Holly R.N. Lesion Bone (Primary Dx) 08/22/2021 1:53 PM CDT - 08/22/2021 4:02 PM CDT Hospital Encounter Department of Radiation Oncology in [address] [address] Whit Meade M.D. 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 05/14/2021 Refill Department of Radiation Oncology in [address] [address] Whit Meade M.D. Med Refill 05/14/2021 Refill Department of Radiation Oncology in [address] [address] Whit Meade M.D. Med Refill 05/13/2021 Documentation Department of Radiation Oncology in [address] [address] Whit Meade M.D. Radiation 05/13/2021 Refill Department of Radiation Oncology in [address] [address] Whit Meade M.D. Med Refill 05/13/2021 Orders Only Department of Radiation Oncology in [address] [address] Whit Meade M.D. 05/13/2021 1:21 PM HISTORIC SITE ADMINISTRATOR - 05/13/2021 11:59 PM HISTORIC SITE ADMINISTRATOR Hospital Encounter Department of Radiation Oncology in [address] [address] Whit Meade M.D. Discharge Disposition: Home or Self Care 05/10/2021 3:48 PM HISTORIC SITE ADMINISTRATOR - 05/10/2021 11:59 PM HISTORIC SITE ADMINISTRATOR Hospital Encounter Department of Radiation Oncology in [address] [address] Whit Meade M.D. Discharge Disposition: Home or Self Care 05/09/2021 3:49 PM HISTORIC SITE ADMINISTRATOR - 05/09/2021 11:59 PM HISTORIC SITE ADMINISTRATOR Hospital Encounter Department of Radiation Oncology in [address] [address] Whit Meade M.D. Discharge Disposition: Home or Self Care 05/08/2021 7:50 AM HISTORIC SITE ADMINISTRATOR - 05/08/2021 11:07 AM HISTORIC SITE ADMINISTRATOR Hospital Encounter Department of Radiation Oncology in [address] [address] Whit Meade M.D. 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 Discharge Disposition: Home or Self Care 05/06/2021 3:50 PM HISTORIC SITE ADMINISTRATOR - 05/06/2021 11:59 PM HISTORIC SITE ADMINISTRATOR Hospital Encounter Department of Radiation Oncology in [address] [address] Whit Meade M.D. Discharge Disposition: Home or Self Care 05/03/2021 4:01 PM HISTORIC SITE ADMINISTRATOR - 05/03/2021 11:59 PM HISTORIC SITE ADMINISTRATOR Hospital Encounter Department of Radiation Oncology in [address] [address] Whit Meade M.D. Discharge Disposition: Home or Self Care 05/02/2021 3:44 PM HISTORIC SITE ADMINISTRATOR - 05/02/2021 11:59 PM HISTORIC SITE ADMINISTRATOR Hospital Encounter Department of Radiation Oncology in [address] [address] Whit Meade M.D. Discharge Disposition: Home or Self Care 05/01/2021 3:55 PM HISTORIC SITE ADMINISTRATOR - 05/01/2021 11:59 PM HISTORIC SITE ADMINISTRATOR Hospital Encounter Department of Radiation Oncology in [address] [address] Whit Meade M.D. Discharge Disposition: Home or Self Care 04/30/2021 8:54 AM HISTORIC SITE ADMINISTRATOR - 04/30/2021 11:02 AM HISTORIC SITE ADMINISTRATOR Hospital Encounter Department of Radiation Oncology in [address] [address] Beni Mcgill M.D. 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 Discharge Disposition: Home or Self Care 04/29/2021 3:52 PM HISTORIC SITE ADMINISTRATOR - 04/29/2021 11:59 PM HISTORIC SITE ADMINISTRATOR Hospital Encounter Department of Radiation Oncology in [address] [address] Whit Meade M.D. Discharge Disposition: Home or Self Care 04/26/2021 3:48 PM HISTORIC SITE ADMINISTRATOR - 04/26/2021 11:59 PM HISTORIC SITE ADMINISTRATOR Hospital Encounter Department of Radiation Oncology in [address] [address] Whit Meade M.D. Discharge Disposition: Home or Self Care 04/25/2021 3:55 PM HISTORIC SITE ADMINISTRATOR - 04/25/2021 11:59 PM HISTORIC SITE ADMINISTRATOR Hospital Encounter Department of Radiation Oncology in [address] [address] Whit Meade M.D. Discharge Disposition: Home or Self Care 04/24/2021 3:24 PM HISTORIC SITE ADMINISTRATOR - 04/24/2021 11:59 PM HISTORIC SITE ADMINISTRATOR Hospital Encounter Department of Radiation Oncology in [address] [address] Whit Meade M.D. Discharge Disposition: Home or Self Care 04/23/2021 8:52 AM HISTORIC SITE ADMINISTRATOR - 04/23/2021 11:03 AM HISTORIC SITE ADMINISTRATOR Hospital Encounter Department of Radiation Oncology in [address] [address] Beni Mcgill M.D. 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 Discharge Disposition: Home or Self Care 04/22/2021 3:18 PM HISTORIC SITE ADMINISTRATOR - 04/22/2021 11:59 PM HISTORIC SITE ADMINISTRATOR Hospital Encounter Department of Radiation Oncology in [address] [address] Whit Meade M.D. Discharge Disposition: Home or Self Care 04/19/2021 3:25 PM HISTORIC SITE ADMINISTRATOR - 04/19/2021 11:59 PM HISTORIC SITE ADMINISTRATOR Hospital Encounter Department of Radiation Oncology in [address] [address] Whit Meade M.D. Leenstra, James L, M.D. Discharge Disposition: Home or Self Care 04/18/2021 3:55 PM HISTORIC SITE ADMINISTRATOR - 04/18/2021 11:59 PM HISTORIC SITE ADMINISTRATOR Hospital Encounter Department of Radiation Oncology in [address] [address] Whit Meade M.D. Discharge Disposition: Home or Self Care 04/17/2021 3:27 PM HISTORIC SITE ADMINISTRATOR - 04/17/2021 11:59 PM HISTORIC SITE ADMINISTRATOR Hospital Encounter Department of Radiation Oncology in [address] [address] Whit Meade M.D. Discharge Disposition: Home or Self Care 04/16/2021 7:49 AM HISTORIC SITE ADMINISTRATOR - 04/16/2021 10:02 AM HISTORIC SITE ADMINISTRATOR Hospital Encounter Department of Radiation Oncology in [address] [address] Whit Meade M.D. 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 Discharge Disposition: Home or Self Care 04/15/2021 3:21 PM HISTORIC SITE ADMINISTRATOR - 04/15/2021 11:59 PM HISTORIC SITE ADMINISTRATOR Hospital Encounter Department of Radiation Oncology in [address] [address] Whit Meade M.D. Discharge Disposition: Home or Self Care 04/12/2021 3:55 PM HISTORIC SITE ADMINISTRATOR - 04/12/2021 11:59 PM HISTORIC SITE ADMINISTRATOR Hospital Encounter Department of Radiation Oncology in [address] [address] Whit Meade M.D. Discharge Disposition: Home or Self Care 04/11/2021 3:55 PM HISTORIC SITE ADMINISTRATOR - 04/11/2021 11:59 PM HISTORIC SITE ADMINISTRATOR Hospital Encounter Department of Radiation Oncology in [address] [address] Whit Meade M.D. 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 Discharge Disposition: Home or Self Care 04/09/2021 8:23 AM HISTORIC SITE ADMINISTRATOR - 04/09/2021 10:33 AM HISTORIC SITE ADMINISTRATOR Hospital Encounter Department of Radiation Oncology in [address] [phone] Beni Mcgill M.D. 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 Discharge Disposition: Home or Self Care 04/08/2021 3:56 PM HISTORIC SITE ADMINISTRATOR - 04/08/2021 11:59 PM HISTORIC SITE ADMINISTRATOR Hospital Encounter Department of Radiation Oncology in [address] [phone] Whit Meade M.D. Discharge Disposition: Home or Self Care 04/05/2021 3:37 PM HISTORIC SITE ADMINISTRATOR - 04/05/2021 11:59 PM HISTORIC SITE ADMINISTRATOR Hospital Encounter Department of Radiation Oncology in [address] [address] Whit Meade M.D. Discharge Disposition: Home or Self Care 04/04/2021 3:22 PM HISTORIC SITE ADMINISTRATOR - 04/04/2021 11:59 PM HISTORIC SITE ADMINISTRATOR Hospital Encounter Department of Radiation Oncology in [address] [phone] Whit Meade M.D. Discharge Disposition: Home or Self Care 04/03/2021 3:39 PM HISTORIC SITE ADMINISTRATOR - 04/03/2021 11:59 PM HISTORIC SITE ADMINISTRATOR Hospital Encounter Department of Radiation Oncology in [address] [phone] Whit Meade M.D. Discharge Disposition: Home or Self Care 04/02/2021 8:58 AM HISTORIC SITE ADMINISTRATOR - 04/02/2021 11:53 AM HISTORIC SITE ADMINISTRATOR Hospital Encounter Department of Radiation Oncology in [address] [address] Whit Meade M.D. 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 Discharge Disposition: Home or Self Care 04/01/2021 Orders Only Department of Radiation Oncology in [address] [phone] Whit Meade M.D. 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 Discharge Disposition: Home or Self Care 03/25/2021 1:00 PM HISTORIC SITE ADMINISTRATOR - 03/25/2021 4:20 PM HISTORIC SITE ADMINISTRATOR Hospital Encounter Department of Radiation Oncology in [address] [address] Whit Meade M.D. 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 Grieman, Kari A, R.N. Discharge Disposition: Home or Self Care 03/22/2021 1:00 PM HISTORIC SITE ADMINISTRATOR - 03/22/2021 1:41 PM HISTORIC SITE ADMINISTRATOR Hospital Encounter Department of Radiation Oncology in [place], [place] [address] [place] [phone] Whit Meade M.D. 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 1 Active gabapentin (NEURONTIN) 100 mg capsule Take 100 mg by mouth at bedtime. 1 Active lisinopriL (PRINIVIL,ZESTR IL) 10 mg tablet Take 10 mg by mouth daily. 1 Active Oyster Shell Calcium-Vit D3 500 mg-10 mcg (400 unit) tablet Take 1 tablet by mouth 2 (two) times a day. 2 Active durvalumab (IMFINZI) 50 mg/mL injection Infuse into a venous catheter every 21 (twenty-one) days. 2 Active budesonide-form oteroL (SYMBICORT) 160-4.5 mcg/actuation inhaler Inhale 2 puffs 2 (two) times a day. Rinse mouth with water after use to reduce aftertaste and incidence of candidiasis. Do not swallow. Active magnesium oxide (MAG-OX) 400 mg (241.3 mg magnesium) tablet Take 400 mg by mouth 2 (two) times a day before morning and evening meals. Active traMADoL (ULTRAM) 50 mg tablet Take 50 mg by mouth every 6 (six) hours as needed. for pain 2 Active Vitamins B Complex tablet Take 1 tablet by mouth daily. 2 Active levothyroxine (SYNTHROID, LEVOTHROID) 100 mcg tablet Take 100 mcg by mouth daily before morning meal. 3 Active FLUTICASONE PROPIONATE NASAL Administer 2 sprays into nostril(s) 2 (two) times a day. 2 Active CISPLATIN IV Infuse into a venous catheter every 21 (twenty-one) days. Active aspirin [address] tablet Take 1 tablet (81 mg total) by mouth daily. 30 tablet 11 4 Active rosuvastatin (CRESTOR) 20 mg tablet Take 1 tablet (20 mg total) by mouth daily. 30 tablet 11 4 Active folic acid 1 mg tablet Take 1 tablet by mouth daily. 4 Active ondansetron (ZOFRAN) 4 mg tablet 4 MG ORALLY EVERY 8 HOURS 4 Active predniSONE (DELTASONE) 10 mg tablet 10 MG ORALLY EVERY DAY 4 Active prochlorperazin e (Compazine) 5 mg tablet Take 5 mg by mouth every 6 (six) hours as needed for nausea. 4 Active acetaminophen (TylenoL) 500 mg tablet Take 2 tablets (1,000 mg total) by mouth every 6 (six) hours as needed for pain. 4 Active enoxaparin (Lovenox) 80 mg/0.8 mL injection Inject 80 mg under the skin 2 (two) times a day. 4 Active famotidine (Pepcid) 20 mg tablet Take 20 mg by mouth 2 (two) times a day. 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 Aortic Ectasia 04/21/2023 Cramp And Spasm 04/21/2023 Dehydration 04/21/2023 Dyspnea 04/21/2023 Elevation Of Levels Of Liver Transaminase Levels 04/21/2023 Fatigue 04/21/2023 Hypothyroidism Due To Medica ments And Other Exogenous Substances 04/21/2023 Pain Cancer Associated 04/21/2023 Pain Epigastric 04/21/2023 Hypertension NOS 06/26/2022 Secondary Malignant Neoplasm Soft Tissue 022 Alcohol Moderate Or Severe U se Disorder (Dependence) Uncomplicated 04/16/2021 Major Depressive Disorder, Recurrent, Unspecifie d 04/16/2021 Malignant Neoplasm Of Lung Upper Lobe Or Bronchu s Left 03/20/2021 Cancer Staging:Clinical stage from 02/26/2021:Stage JOSETTE(cT4, cN0, cM1a) - Unsigned Polyp Colon Adenomatous 09/06/2013 Overview (04/21/2023): Colonoscopy 08/2013 large polyp repeat in 3 years Colonoscopy 11/2020 normal, repeat in 5 years Dermatitis Contact Due To Plant 05/15/2009 Emphysema 07/08/2008 Overview (10/15/2021): Blebs noted on CT in both upper lungs 06/22 Nicotine Dependence Unspecified 07/09/2005 Immunizations Immunization Administration Dates Next Due Influenza high dose QV(65 years or older) (PF) 0 12/05/2021,01/04/2020 Influenza, Quadrivalent, Adjuvanted, Preservativ e Free 11/23/2022,02/10/2021 Influenza, Unspecified 02/10/2021 PCV20 09/10/2021 RZV (SHINGRIX) 01/26/2023 Td, (Adult) Unspecified 04/24/1999 Tdap 06/09/2013 influenza vaccine quad (FLUZ ONE/FLUARIX) (6 months and older)(PF) 02/09/2017 Family History Medical History Relation Name Comments Diabetes Father Dad Psychiatric Father Dad Paranoid Relation Name Status Comments Father Dad Social History Smoking Status as of 08/28/2024 Tobacco Use Types Packs/Day Years Used Date Smoking Tobacco: Never Assessed [facility] Utilities Answer Date Recorded In the past 12 months has th e [employer], gas, oil, or water [employer] threatened to shut off services in your [...] often do you attend chur ch or adventism services? 1 to 4 times per year [...] and heating? Not hard at all 06/19/2022 [facility] [place] of Occupat ional Health - Occupational Stress [...] your living situation today? [facility] 08/02/2023 Education Answer Date Recorded What is the highest level of school you have completed or the highest degree you have received? Some college, no degree 04/01/2021 Sex and Gender Information Value Date Recorded Sex Assigned at Male 04/01/2021 8:09 PM HISTORIC SITE ADMINISTRATOR Legal Sex Male 11:17 AM HISTORIC SITE ADMINISTRATOR Gender Identity Male 04/01/2021 8:09 PM HISTORIC SITE ADMINISTRATOR Sexual Orientation Straight 04/01/2021 8: 09 PM HISTORIC SITE ADMINISTRATOR Last Filed Vital Signs Vital Sign Reading Time Taken Comments Blood Pressure 121/75 10/02/2023 4:19 PM CDT Pulse 75 10/02/2023 4:19 PM CDT Temperature 36.8 C (98.2 F) 10/02/2023 4:19 PM CDT Respiratory Rate 17 10/02/2023 4:19 PM CDT Oxygen Saturation 90% 10/02/2023 4:19 PM CDT Inhaled Oxygen Concentration - - Weight 70.3 kg (154 lb 15.7 oz) 10/01/2023 6:43 AM CDT Height 185.4 cm (6' 0.99) 10/02/2023 2:00 PM CD T Body Mass Index 20.45 10/01/2023 6:43 AM CDT Plan of Treatment Not on file Medical Devices Implanted Type Area Machinery Rigger Device Identifier Shelf Expiration Date Model / Serial / Lot 6fr Angio-Seal Implanted:Qty : 1 on 10/01/2023 by Pritesh Regan M.B., Ch.B., Ph.D. at [facility] Other Unknown [id number] / / [id number] Description:ANGLE-SEAL 8fr. Angio-Seal Implanted:Qty : 1 on 10/01/2023 by Pritesh Regan M.B., Ch.B., Ph.D. at [facility] Other Unknown [id number] / / [id number] Description:ANGIO-SEAL VENDO R Stnt Viabahn 018 [id number] - [id number] - [id number] Implanted:Qty : 1 on 10/01/2023 by Pritesh Regan M.B., Ch.B., Ph.D. at [facility] Vascular Stent Right: Leg Nelson 03/26/2025 [id number] / [id number] / Stnt Viabahn 018 [id number] - [id number] - [id number] Implanted:Qty : 1 on 10/01/2023 by Pritesh Regan M.B., Ch.B., Ph.D. at [facility] Vascular Stent Right: Leg Nelson 06/09/2025 [id number] / [id number] / Stnt Inn[employer] Otw [id number] - [id number] Implanted:Qty : 1 on 10/01/2023 by Pritesh Regan M.B., Ch.B., Ph.D. at [facility] Vascular Stent Right: Leg [employer] 09/11/2027 [id number] / / [id number] [facility] Grft Viabahn [id number] - [id number] - [id number] Implanted:Qty : 1 on 10/01/2023 by Pritesh Regan M.B., ChVineetB., Ph.D. 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) LOWER EXTREMITY ARTERIAL (BRENDA) - EXERCISE (CLAUDICATION) Routine 11/18/2023 3:45 PM CDT 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) US AORTA ILIAC ARTERIES RIGHT WITH DOPPLER RAD - Routine (most inpatients and all outpatients) 11/18/2023 10:06 AM CDT 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) US LOWER EXTREMITY ARTERIES RIGHT RAD - Routine (most inpatients and all outpatients) 11/18/2023 10:00 AM CDT 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) OUTSIDE PA PET Routine 11/12/2023 3:00 PM CDT OUTSIDE US NEURO Routine 10/06/2023 12:00 AM CDT CBC WITHOUT DIFFERENTIAL, B STAT 10/02/2023 3:52 PM CDT TRANSFUSE RED BLOOD CELLS Routine 10/02/2023 1:02 PM CDT PREPARE RED BLOOD CELLS Routine 10/02/2023 11:02 AM CDT TYPE AND SCREEN Routine 10/02/2023 11:02 AM CDT US AORTA ILIAC ARTERIES RIGHT WITH DOPPLER RAD - Semiurgent (Fast; most ED patients; some inpatients) 10/02/2023 10:19 AM CDT US LOWER EXTREMITY ARTERIES RIGHT RAD - Semiurgent (Fast; most ED patients; some inpatients) 10/02/2023 10:19 AM CDT BASIC METABOLIC PANEL, S/P Routine 10/02/2023 7:10 AM CDT CBC WITHOUT DIFFERENTIAL, B Routine 10/02/2023 7:10 AM CDT RESPIRATORY ASSESS AND TREAT Routine 10/01/2023 11:22 PM CDT ADULT OXYGEN THERAPY Routine 10/01/2023 8:56 PM CDT ADULT OXYGEN THERAPY Routine 10/01/2023 3:23 PM CDT ADULT OXYGEN THERAPY Routine 10/01/2023 3:23 PM CDT IR IMAGING RAD - Routine (most inpatients and all outpatients) 10/01/2023 3:15 PM CDT 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) IR ENDOVASCULAR ANGIOPLASTY STENT ILIAC LOWER EXTREMITY RAD - Routine (most inpatients and all outpatients) 10/01/2023 3:15 PM CDT 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) ACT, POCT, B Routine 10/01/2023 2:26 PM CDT ACT, POCT, B Routine 10/01/2023 1:29 PM CDT ACT, POCT, B Routine 10/01/2023 12:58 PM CDT ACT, POCT, B Routine 10/01/2023 12:27 PM CDT ACT, POCT, B Routine 10/01/2023 11:57 AM CDT ACT, POCT, B Routine 10/01/2023 11:30 AM CDT ACT, POCT, B Routine 10/01/2023 11:00 AM CDT ACT, POCT, B Routine 10/01/2023 10:48 AM CDT ACT, POCT, B Routine 10/01/2023 10:21 AM CDT ACT, POCT, B Routine 10/01/2023 9:51 AM CDT ACT, POCT, B Routine 10/01/2023 9:21 AM CDT ACT, POCT, B Routine 10/01/2023 9:10 AM CDT AIRWAY MANAGEMENT Routine 10/01/2023 7:[address] ABD PELVIS ANGIO AND LOWER EXT RUNOFF BILAT WITH IV CONTRAST RAD - Routine (most inpatients and all outpatients) 08/12/2023 9:46 AM CDT 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 (HCC) OUTSIDE NM PET Routine 08/06/2023 6:10 PM CDT LOWER EXTREMITY ARTERIAL (BRENDA) - EXERCISE (CLAUDICATION) Routine 08/03/2023 4:29 PM CDT 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 (HCC) OUTSIDE NM PET Routine 04/16/2023 3:20 PM HISTORIC SITE ADMINISTRATOR OUTSIDE NM PET Routine 01/22/2023 3:05 PM HISTORIC SITE ADMINISTRATOR OUTSIDE MR NEURO Routine 09/19/2022 2:45 PM CDT OUTSIDE NM PET Routine 09/18/2022 4:[address] SOFT TISSUE ABLATION RAD - Routine (most inpatients and all outpatients) 07/08/2022 12:00 PM CDT Lesion Soft Tissue LDA ANE ENDOTRACHEAL AIRWAY Routine 07/08/2022 10:24 AM CDT CBC WITHOUT DIFFERENTIAL, B STAT 07/08/2022 9:39 AM CDT PROTHROMBIN TIME (PT), P STAT 07/08/2022 9:39 AM CDT OUTSIDE MR NEURO Routine 05/27/2022 7:25 AM CDT OUTSIDE NM PET Routine 05/15/2022 2:10 PM HISTORIC SITE ADMINISTRATOR ARIA COURSE COMPLETE TREATMENT INFORMATION Routine 03/07/2022 10:29 AM HISTORIC SITE ADMINISTRATOR ARIA DAILY TREATMENT INFORMATION Routine 03/07/2022 10:29 AM HISTORIC SITE ADMINISTRATOR ARIA DAILY TREATMENT INFORMATION Routine 03/05/2022 10:18 AM HISTORIC SITE ADMINISTRATOR ARIA DAILY TREATMENT INFORMATION Routine 03/03/2022 1:28 PM HISTORIC SITE ADMINISTRATOR INITIAL RAD ONC TREATMENT PLANNING CT SIMULATION Routine 02/24/2022 10:00 AM HISTORIC SITE ADMINISTRATOR Secondary Malignant Neoplasm Soft Tissue (HCC) OUTSIDE US NEURO Routine 02/11/2022 10:30 AM HISTORIC SITE ADMINISTRATOR OUTSIDE NM PET Routine 01/23/2022 3:30 PM HISTORIC SITE ADMINISTRATOR OUTSIDE MR NEURO Routine 01/20/2022 2:30 PM HISTORIC SITE ADMINISTRATOR LDA ANE ARTERIAL LINE INSERTION Routine 10/23/2021 3:02 PM CDT KS ARTL CATH/CNULA MONITOR PERC Routine 10/23/2021 3:[address] SPINE ABLATION RAD - Routine (most inpatients and all outpatients) 10/23/2021 2:54 PM CDT Lesion Bone LDA ANE ENDOTRACHEAL AIRWAY Routine 10/23/2021 12:03 PM CDT IONM - EMG Routine 10/23/2021 11:16 AM CDT CREATININE, POCT, B Routine 10/23/2021 10:52 AM CDT PROTHROMBIN TIME (PT), P Routine 10/22/2021 10:40 AM CDT Lesion Bone CBC WITHOUT DIFFERENTIAL, B Routine 10/22/2021 10:40 AM CDT Lesion Bone SARS COV-2 RNA, PCR, VARIES Routine 10/22/2021 9:49 AM CDT Lesion Bone Preprocedural Lab Exam Encounter For Preprocedural Laboratory Examination (COVID-19) MR THORACIC SPINE WITHOUT AND WITH IV CONTRAST RAD - Routine (most inpatients and all outpatients) 10/22/2021 7:46 AM CDT Lesion Bone OUTSIDE NM PET Routine 09/19/2021 3:50 PM CDT OUTSIDE MR NEURO Routine 08/16/2021 2:45 PM CDT OUTSIDE DX CHEST Routine 08/14/2021 2:[address] BODY Routine 06/06/2021 10:45 AM CDT ARIA COURSE COMPLETE TREATMENT INFORMATION Routine 05/13/2021 1:39 PM HISTORIC SITE ADMINISTRATOR ARIA DAILY TREATMENT INFORMATION Routine 05/13/2021 1:39 PM HISTORIC SITE ADMINISTRATOR ARIA DAILY TREATMENT INFORMATION Routine 05/10/2021 4:02 PM HISTORIC SITE ADMINISTRATOR ARIA DAILY TREATMENT INFORMATION Routine 05/09/2021 3:59 PM HISTORIC SITE ADMINISTRATOR ARIA DAILY TREATMENT INFORMATION Routine 05/08/2021 8:08 AM HISTORIC SITE ADMINISTRATOR ARIA DAILY TREATMENT INFORMATION Routine 05/06/2021 4:22 PM HISTORIC SITE ADMINISTRATOR ARIA DAILY TREATMENT INFORMATION Routine 05/03/2021 4:12 PM HISTORIC SITE ADMINISTRATOR ARIA DAILY TREATMENT INFORMATION Routine 05/02/2021 3:58 PM HISTORIC SITE ADMINISTRATOR ARIA DAILY TREATMENT INFORMATION Routine 05/01/2021 4:16 PM HISTORIC SITE ADMINISTRATOR ARIA DAILY TREATMENT INFORMATION Routine 04/30/2021 9:08 AM HISTORIC SITE ADMINISTRATOR ARIA DAILY TREATMENT INFORMATION Routine 04/29/2021 4:05 PM HISTORIC SITE ADMINISTRATOR ARIA DAILY TREATMENT INFORMATION Routine 04/26/2021 3:58 PM HISTORIC SITE ADMINISTRATOR ARIA DAILY TREATMENT INFORMATION Routine 04/25/2021 4:08 PM HISTORIC SITE ADMINISTRATOR ARIA DAILY TREATMENT INFORMATION Routine 04/24/2021 4:00 PM HISTORIC SITE ADMINISTRATOR ARIA DAILY TREATMENT INFORMATION Routine 04/23/2021 9:29 AM HISTORIC SITE ADMINISTRATOR ARIA DAILY TREATMENT INFORMATION Routine 04/22/2021 4:12 PM HISTORIC SITE ADMINISTRATOR ARIA DAILY TREATMENT INFORMATION Routine 04/19/2021 4:08 PM HISTORIC SITE ADMINISTRATOR ARIA DAILY TREATMENT INFORMATION Routine 04/18/2021 4:22 PM HISTORIC SITE ADMINISTRATOR ARIA DAILY TREATMENT INFORMATION Routine 04/17/2021 4:05 PM HISTORIC SITE ADMINISTRATOR ARIA DAILY TREATMENT INFORMATION Routine 04/16/2021 8:11 AM HISTORIC SITE ADMINISTRATOR ARIA DAILY TREATMENT INFORMATION Routine 04/15/2021 4:17 PM HISTORIC SITE ADMINISTRATOR ARIA DAILY TREATMENT INFORMATION Routine 04/12/2021 4:38 PM HISTORIC SITE ADMINISTRATOR ARIA DAILY TREATMENT INFORMATION Routine 04/11/2021 4:16 PM HISTORIC SITE ADMINISTRATOR ARIA DAILY TREATMENT INFORMATION Routine 04/10/2021 4:21 PM HISTORIC SITE ADMINISTRATOR ARIA DAILY TREATMENT INFORMATION Routine 04/09/2021 8:42 AM HISTORIC SITE ADMINISTRATOR ARIA DAILY TREATMENT INFORMATION Routine 04/08/2021 4:29 PM HISTORIC SITE ADMINISTRATOR ARIA DAILY TREATMENT INFORMATION Routine 04/05/2021 3:53 PM HISTORIC SITE ADMINISTRATOR ARIA DAILY TREATMENT INFORMATION Routine 04/04/2021 3:39 PM HISTORIC SITE ADMINISTRATOR ARIA DAILY TREATMENT INFORMATION Routine 04/03/2021 3:57 PM HISTORIC SITE ADMINISTRATOR ARIA DAILY TREATMENT INFORMATION Routine 04/02/2021 9:19 AM HISTORIC SITE ADMINISTRATOR ARIA DAILY TREATMENT INFORMATION Routine 04/01/2021 4:02 PM HISTORIC SITE ADMINISTRATOR ARIA COURSE COMPLETE TREATMENT INFORMATION Routine 03/28/2021 3:50 PM HISTORIC SITE ADMINISTRATOR OUTSIDE MR NEURO Routine 03/25/2021 3:35 PM HISTORIC SITE ADMINISTRATOR INITIAL RAD ONC TREATMENT PLANNING CT SIMULATION Routine 03/25/2021 1:52 PM HISTORIC SITE ADMINISTRATOR 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) CREATININE WITH EGFR, S/P Routine 03/22/2021 12:47 PM HISTORIC SITE ADMINISTRATOR OUTSIDE DX CHEST Routine 03/11/2021 9:55 AM HISTORIC SITE ADMINISTRATOR OUTSIDE CT BODY Routine 03/11/2021 8:15 AM HISTORIC SITE ADMINISTRATOR OUTSIDE CT BODY Routine 02/26/2021 3:10 PM HISTORIC SITE ADMINISTRATOR OUTSIDE NM PET Routine 02/26/2021 2:35 PM HISTORIC SITE ADMINISTRATOR OUTSIDE MR NEURO Routine 02/14/2021 5:15 PM HISTORIC SITE ADMINISTRATOR OUTSIDE DX SKELETAL Routine 01/09/2021 8:05 AM CDT OUTSIDE MR NEURO Routine 01/03/2021 5:25 PM CDT OUTSIDE DX SKELETAL Routine 11/10/2020 10:10 AM CDT Results * MR head/brain wo/w con-Outside MR Neuro (05/27/2024 6:25 AM CDT) Only the most recent of8 resultswithin the time period is included. Narrative [facility] - 05/30/2024 9:37 AM CDT This order has been created and auto-finalized to support the import of outside images. If available, original interpretation can be found on the Media Tab in Chart Review, in Document Viewer, as an image in InfinityView or as an Addendum. If a re-interpretation or overread is required please follow defined workflow. us Provider Not In System IMG MRI PROCEDURES Final Result [facility] NA * PET CT Skull to Thigh FDG (05/23/2024 11:48 AM CDT) Only the most recent of2 resultswithin the time period is included. Anatomical Region Laterality Modality Body, Nuclear Medicine PET R ST LOS, PET ARZ LOS, Nuclear Medicine PET FLA LOS, Nuclear Medicine N/A Positron Emission Tomography (PET) Impressions 05/23/2024 1:08 PM CDT 1. FDG avid left upper lobe pleural nodules demonstrate grossly similar FDG avidity to the prior study. 2. Severe bullous emphysema with unchanged fluid-filled left upper lobe bulla. 3. Stable infrarenal abdominal aortic aneurysm. Narrative 05/23/2024 1:08 PM CDT EXAM: PET CT SKULL TO THIGH FDG COMPARISON: PET CT 02/29/2024 INDICATION: Left upper lobe lung cancer. Subsequent treatment strategy. F-[address] scan was performed from the mid calvarium through the upper thighs with CT fusion imaging for attenuation correction, anatomic coregistration, and respiratory gating only. Serum glucose at time of F-18 FDG injection: 87 mg/dL. Uptake time: 60 minutes following injection. The patient reports no recent vaccinations. FINDINGS: PET findings: There are again FDG avid left upper lobe pleural nodules which overall demonstrates similar FDG avidity to the prior study, superiorly with maximum SUV 3.4 on series 604 image 112, previously 3.7 and inferiorly with maximum SUV 5.4, previously 4.9 on series 604 image 131. Unchanged moderate FDG uptake in the rectum, likely inflammatory. CT findings: Right internal jugular central venous access catheter tip terminates in the superior cavoatrial junction. Calcified mediastinal and hilar lymph nodes consistent with old granulomatous disease. Severe upper lobe predominant paraseptal and centrilobular emphysema with bullae in the lung apices. Unchanged fluid-filled bulla in the left upper lobe measuring 10.7 cm. Calcified atherosclerosis in the coronary arteries. Infrarenal abdominal aortic aneurysm measuring 4.1 cm, unchanged. Right common iliac artery stent. Right superficial femoral artery stent. Severe calcified atherosclerosis in the aorta and major branches. Right inguinal hernia repair. Moderate multilevel spondylosis. RADIOPHARMACEUTICAL/MEDS: Route: intravenous fludeoxyglucose F 18 injection [facility] (FDG F-18),11.4 millicurie Procedure Note Behzad Ramirez M.D. - 05/23/2024 EXAM: PET CT SKULL TO THIGH FDG COMPARISON: PET CT 02/29/2024 INDICATION: Left upper lobe lung cancer. Subsequent treatment strategy. F-[address] scan was performed from the mid calvarium through theupper thighs with CT fusion imaging for attenuation correction, anatomiccoregistration, and respiratory gating only. Serum glucose at time of F-18 FDG injection: 87 mg/dL. Uptake time: 60 minutes following injection. The patient reports no recent vaccinations. FINDINGS: PET findings: There are again FDG avid left upper lobe pleural nodules which overalldemonstrates similar FDG avidity to the prior study, superiorly withmaximum SUV 3.4 on series 604 image 112, previously 3.7 and inferiorlywith maximum SUV 5.4, previously 4.9 on series 604 image 131. Unchanged moderate FDG uptake in the rectum, likely inflammatory. CT findings: Right internal jugular central venous access catheter tip terminates inthe superior cavoatrial junction. Calcified mediastinal and hilar lymphnodes consistent with old granulomatous disease. Severe upper lobepredominant paraseptal and centrilobular emphysema with bullae in the lung apices. Unchanged fluid-filled bulla inthe left upper lobe measuring 10.7 cm. Calcified atherosclerosis in thecoronary arteries. Infrarenal abdominal aortic aneurysm measuring 4.1 cm,unchanged. Right common iliac artery stent. Right superficial femoral artery stent. Severe calcifiedatherosclerosis in the aorta and major branches. Right inguinal herniarepair. Moderate multilevel spondylosis. RADIOPHARMACEUTICAL/MEDS: Route: intravenous fludeoxyglucose F 18 injection [facility] (FDG F-18),11.4 millicurie IMPRESSION: 1. FDG avid left upper lobe pleural nodules demonstrate grossly similarFDG avidity to the prior study. 2. Severe bullous emphysema with unchanged fluid-filled left upper lobebulla. 3. Stable infrarenal abdominal aortic aneurysm. Charity Dudley M.D. IMG NM PROCEDURES Final Resu lt * Lower Extremity Arterial (BRENDA) - Exercise (Claudication) (11/18/2023 3:45 PM CDT) Only the most recent of2 resultswithin the time period is included. Anatomical Region Laterality Modality Other 11/18/2023 1:39 PM CDT Narrative 11/18/2023 3:49 PM CDT Right: Doppler Waveforms: Normal at all levels evaluated. Resting Index: BRENDA (PT)- 0.97 BRENDA (DP)- 1.00 TBI- 0.66 Post-exercise BRENDA: 0.62 Post-Exercise CF Doppler: Abnormal. Left: Doppler Waveforms: Abnormal signals starting at or above the common femoral level. Resting Index: BRENDA (PT)- 0.62 BRENDA (DP)- 0.60 TBI- 0.42 Post-exercise BRENDA: 0.11 Foot pallor resolved 8'00 post exercise. General: Patient exercised at reduced speed of 1.5 mph (10% grade) for 5 minutes (212 yards). Standard protocol: 2.0 mph (10% grade) for 5 minutes (283 yards). Onset of symptoms at 1'34 (61 yards). Exercise terminated at completion of protocol. Conclusions: Right- minimal/mild arterial obstruction, location uncertain. Left- moderate iliac artery obstruction. EKG- negative for cardiac ischemia with exercise Right-sided disease severity has improved markedly since the study of 08/03/2023. Procedure Note Yousuf Sanders M.D. - 11/18/2023 Right: Doppler Waveforms: Normal at all levels evaluated. RestingIndex: BRENDA (PT)- 0.97 BRENDA (DP)- 1.00 TBI- 0.66Post-exercise BRENDA: 0.62 Post-Exercise CF Doppler: Abnormal. Left: Doppler Waveforms: Abnormal signals starting at or above thecommon femoral level. Resting Index: BRENDA (PT)- 0.62 BRENDA (DP)-0.60 TBI- 0.42 Post-exercise BRENDA: 0.11 Foot pallor resolved8'00 post exercise. General: Patient exercised at reduced speed of 1.5 mph (10% grade) for 5minutes (212 yards). Standard protocol: 2.0 mph (10% grade) for 5minutes (283 yards). Onset of symptoms at 1'34 (61 yards). Exerciseterminated at completion of protocol. Conclusions: Right- minimal/mild arterial obstruction, location uncertain.Left- moderate iliac artery obstruction. EKG- negative for cardiacischemia with exercise Right-sided disease severity has improved markedlysince the study of 08/03/2023. us Pritesh Daniels, Ch.B., Ph.D. CV VASCUL AR PROCEDURES Edited Result - Final * US Aorta Iliac Arteries Right with Doppler (11/18/2023 10:06 AM CDT) Only the most recent of2 resultswithin the time period is included. Anatomical Region Laterality Modality Abdomen, Pelvis, Ultrasound RST LOS, Ultrasound ARZ LOS, Ultrasound FLA LOS, Procedural, Vascular Interventional NWWI LOS Right Ultrasound Impressions 11/18/2023 10:21 AM CDT 1. Stable abdominal aortic aneurysm at 4.0 cm. 2. Patent right common iliac artery stent without stenosis. Narrative 11/18/2023 10:21 AM CDT EXAM: US AORTA ILIAC ARTERIES RIGHT WITH DOPPLER Exam performed with color and spectral Doppler analysis. COMPARISON: 10/02/2023 FINDINGS: Stable appearance of distal abdominal aortic aneurysm at 4.0 cm maximally. Patent right common iliac artery stent. Inflow and outflow are patent. Patent right internal iliac artery. Previously seen doubling of velocities in the right external iliac artery is not appreciated today. Patent right common femoral artery and proximal deep and superficial femoral arteries. Procedure Note Blanca Olea M.D. - 11/18/2023 EXAM: US AORTA ILIAC ARTERIES RIGHT WITH DOPPLER Exam performed with color and spectral Doppler analysis. COMPARISON: 10/02/2023 FINDINGS: Stable appearance of distal abdominal aortic aneurysm at 4.0 cm maximally.Patent right common iliac artery stent. Inflow and outflow are patent.Patent right internal iliac artery. Previously seen doubling of velocitiesin the right external iliac artery is not appreciated today. Patent right common femoral artery andproximal deep and superficial femoral arteries. IMPRESSION: 1. Stable abdominal aortic aneurysm at 4.0 cm. 2. Patent right common iliac artery stent without stenosis. us Pritesh Daniels, Ch.B., Ph.D. IMG [place] OCEDURES Final Result * US Lower Extremity Arteries Right (11/18/2023 10:00 AM CDT) Only the most recent of2 resultswithin the time period is included. Anatomical Region Laterality Modality Lower Extremity, Ultrasound RST LOS, Ultrasound ARZ LOS, Ultrasound FLA LOS, Procedural, Vascular Interventional NWWI LOS Right Ultrasound Impressions 11/18/2023 10:24 AM CDT Right SFA into popliteal artery stent is patent. Persistent stenosis proximal to stent. Narrative 11/18/2023 10:24 AM CDT EXAM: US LOWER EXTREMITY ARTERIES RIGHT Exam performed with color and spectral Doppler analysis. COMPARISON: 10/02/2023 FINDINGS: RIGHT: Stent in the right superficial femoral artery through the mid popliteal artery is widely patent without stenosis. Velocity reaches 244 cm/s proximal to the proximal end point within the superficial femoral artery, similar to prior. Common femoral artery and visualized portions of deep femoral artery as well as posterior tibial artery at the ankle and dorsalis pedis artery are widely patent. BRENDA's being performed in Vascular Lab today. Procedure Note Blanca Olea M.D. - 11/18/2023 EXAM: US LOWER EXTREMITY ARTERIES RIGHT Exam performed with color and spectral Doppler analysis. COMPARISON: 10/02/2023 FINDINGS: RIGHT: Stent in the right superficial femoral artery through the mid poplitealartery is widely patent without stenosis. Velocity reaches 244 cm/sproximal to the proximal end point within the superficial femoral artery,similar to prior. Common femoral artery and visualized portions of deep femoral artery as well as posterior tibialartery at the ankle and dorsalis pedis artery are widely patent. BRENDA's being performed in Vascular Lab today. IMPRESSION: Right SFA into popliteal artery stent is patent. Persistent stenosisproximal to stent. Pritesh Daniels, Ch.B., Ph.D. [facility] [place] [facility] Final Result * PET skull to mid thigh-Outside NM Pet (11/12/2023 3:00 PM CDT) Only the most recent of9 resultswithin the time period is included. 11/12/2023 2:57 PM CDT Narrative IIMS - 11/12/2023 6:49 PM CDT This order has been created and auto-finalized to support the import of outside images. If available, original interpretation can be found on the Media Tab in Chart Review, in Document Viewer, as an image in QREADS or as an Addendum. If a re-interpretation or overread is required please follow defined workflow. us Provider Not In System IMG NM PROCEDURES Final R esult Performing Organization Address City/[facility]/ZIP Co de Phone Number IIMS NA * US Carotid Duplex Bilateral-Outside US Neuro (10/06/2023 12:00 AM CDT) Only the most recent of2 resultswithin the time period is included. Narrative [facility]IMS - 10/22/2023 4:20 PM CDT This order has been created and auto-finalized to support the import of outside images. If available, original interpretation can be found on the Media Tab in Chart Review, in Document Viewer, as an image in QREADS or as an Addendum. If a re-interpretation or overread is required please follow defined workflow. us Provider Not In System IMG US PROCEDURES Final R esult Performing Organization Address [facility] Co de Phone Number II NA * (ABNORMAL) CBC without Differential (10/02/2023 3:52 PM CDT) Only the most recent of4 resultswithin the time period is included. Hemoglobin 9.2(L) 13.2 - 16.6 g/dL 10/02/2023 4:03 PM CDT ST[facility] Hematocrit 28.1(L) 38.3 - 48.6 % 10/02/2023 4:03 PM CDT STMA Erythrocytes 2.68(L) 4.35 - 5.65 x10(12)/L 10/02/2023 4:03 PM CDT [facility] MCV 104.9(H) 78.2 - 97.9 fL 10/02/2023 4:03 PM CDT STMA RBC Distrib Width 20.1(H) 11.8 - 14.5 % 10/02/2023 4:03 PM CDT STMA Platelet Count 244 135 - 317 x10(9)/L 10/02/2023 4:03 PM CDT STMA Leukocytes 10.4(H) 3.4 - 9.6 x10(9)/L 10/02/2023 4:03 PM CDT STMA Blood (Blood, Venous) 10/02/2023 3:52 PM CDT 10/02/2023 4:00 PM CDT Ivana Villasenor APRN, C.N.P., D.N.P. LAB BLOOD ADD-ON Final Result Performing Organization Address [facility] Co de Phone Number [facility] [address] [place] [address], [facility] [address] [place] [address] * Transfuse Red Blood Cells : (10/02/2023 2:52 PM CDT) Sonal Chavez APRNNBernie, M.S.N. BLOOD SAGE SFUSION ORDERABLES Final Result * Type and Screen (with Reflex Antibody ID) (10/02/2023 11:02 AM CDT) Pathologist [facility] ABORh B Neg Not applicable 10/02/2023 11:40 AM CDT STRM Antibody Screen Negative Negative 10/02/2023 11:55 AM CDT STRM Type & Screen Expiration 10/05/2023 23:59 10/02/2023 11:40 AM CDT STRM Testing Location [place] DEFAULT 10/02/2023 11:12 AM CDT STRM Blood (Blood, Venous) 10/02/2023 11:02 AM CDT 10/02/2023 11:12 AM CDT Sonal Chavez APRNN.Joshua, M.S.N. LAB BLOOD BANK TEST ORDERABLES Final Result Performing Organization Address [facility] Co de Phone Number [facility] [address] [place] [address], [facility] STR[facility] [address] [place] [address] * Basic Metabolic Panel (10/02/2023 7:10 AM CDT) Pathologist [facility] Potassium, S 4.5 3.6 - 5.2 mmol/L 10/02/2023 8:10 AM CDT DTL Sodium, S 139 135 - 145 mmol/L 10/02/2023 8:10 AM CDT DTL Chloride, S 104 98 - 107 mmol/L 10/02/2023 8:10 AM CDT DTL Bicarbonate, S 27 22 - 29 mmol/L 10/02/2023 8:10 AM CDT DTL Anion Gap 8 7 - 15 10/02/2023 8:10 AM CDT DTL BUN (Blood Urea Nitrogen), S 16 8 - 24 mg/dL 10/02/2023 8:10 AM CDT DTL Creatinine 1.26 0.74 - 1.35 mg/dL 10/02/2023 8:10 AM CDT DTL Estimated GFR (eGFR) 62 >=60 mL/min/BSA 10/02/2023 8:10 AM CDT DTL Comment: Estimated GFR calculated using the 2020 CKD_EPI creatinine equation. Calcium, Total, S 8.9 8.8 - 10.2 mg/dL 10/02/2023 8:10 AM CDT DTL Glucose, S 78 70 - 140 mg/dL 10/02/2023 8:10 AM CDT DTL Blood (Blood, Venous) 10/02/2023 7:10 AM CDT 10/02/2023 7:54 AM CDT Ivana Villasenor APRN, C.N.P., D.N.P. LAB BLOOD ADD-ON Final Result [facility] [address] [facility] [address] [place] [address] * IR IMAGING (10/01/2023 3:15 PM CDT) Anatomical Region Laterality Modality N/A Other Narrative 10/02/2023 7:07 AM CDT Performed by surgeon - see Op Note for result. Pritesh Daniels, Ch.B., Ph.D. IMG IR [place] OCEDURES Final Result * IR ENDOVASCULAR ANGIOPLASTY STENT ILIAC LOWER EXTREMITY (10/01/2023 3:15 PM CDT) Anatomical Region Laterality Modality Lower Extremity, Vascular Interventional RST LOS N/A Other Narrative 10/02/2023 7:07 AM CDT Performed by surgeon - see Op Note for result. us Pritesh Daniels, Ch.B., Ph.D. IMG IR [place] OCEDURES Final Result * (ABNORMAL) ACT (Activated Clotting Time), POCT (10/01/2023 2:26 PM CDT) Only the most recent of12 resultswithin the time period is included. Activated Clotting Time, POCT 192(H) 84 - 139 sec 10/01/2023 2:30 PM CDT PCSM Blood 10/01/2023 2:26 PM CDT 10/01/2023 2:31 PM CDT us Unknown Provider LAB POCT ORDERABLES - DEVICE Fi nal Result POC RST [facility] [address] [place] [address], [facility] [address] [place] [address] * Airway (10/01/2023 7:47 AM CDT) Narrative Román Pittman APRN, CRNA - 10/01/2023 7:47 AM CDT Román Pittman APRN, CRNA 10/01/2023 7:53 AM Airway Date/Time: 10/01/2023 7:47 AM Performed by: Román Pittman APRN, CRNA Authorized by: Varinder Torrez M.D. Patient location during procedure: OR / Procedure Area PROCEDURE DETAILS: Mask difficulty assessment: difficult mask two-handed) without oral airway Final airway type: video laryngoscope Laryngeal Manipulation: no Final best view of glottic structures - Cormack/Lehane Score: grade 2A ETT location: oral Tube size: 7.5 ETT distance at teeth/gum: 23 Cuffed: yes Number of attempt to successful placement: 1 Airway confirmation: bilateral breath sounds, positive ETCO2 and bilateral chest rise Other previous techniques attempted: none PRE PROCEDURE DETAILS: Pre evaluation for airway management: procedure Urgency: elective Preop assessment of probable difficulty: no difficulty anticipated Preoxygenation: bag valve mask SEDATION / ANESTHESIA Anesthesia method: anesthesia POST PROCEDURE DETAILS: Procedure outcome: successful Notable Events: no complications Varinder Torrez M.D. ANESTHESIA ORDERABLES Final Result * CT Abd Pelvis Angio and Lower Ext Runoff Bilat with IV Contrast (08/12/2023 9:46 AM CDT) Anatomical Region Laterality Modality Abdomen, Pelvis, Cardiovascu lar RST LOS, Vascular Interventional ARZ LOS, Vascular Interventional FLA LOS, Procedural, Vascular Interventional NWWI LOS Bilateral Computed Tomography, Compute d Tomography 08/12/2023 9:34 AM CDT Impressions 08/12/2023 10:02 AM CDT 41 x 39 mm infrarenal abdominal aortic aneurysm. Segmental occlusions both internal iliac arteries. Occlusion both superficial femoral arteries. Three-vessel runoff bilaterally. Narrative 08/12/2023 10:02 AM CDT EXAM: CT ABD PELVIS ANGIO AND LOWER EXT RUNOFF BILAT WITH IV CONTRAST Including 3D image post-processing with or without AI assistance. COMPARISON: None FINDINGS: The visualized descending thoracic aorta is patent with mild irregular atherosclerotic plaque. The abdominal aorta is patent. Patent celiac, superior mesenteric and inferior mesenteric arteries. The renal arteries are patent. 41 x 39 mm infrarenal abdominal aortic aneurysm. Aneurysm ends at the aortic bifurcation. Mild to moderate stenosis right common iliac artery. The remaining common iliac arteries are patent. Occlusion proximal right internal iliac artery with refilling distally. The left internal iliac arteries occluded proximally as well. Mild stenoses both proximal external iliac arteries. Right lower extremity: Patent common femoral and deep femoral arteries. The superficial femoral artery is occluded. The popliteal artery refills via collateral circulation above the knee and is patent to the trifurcation vessels. The trifurcation vessels are patent. Left lower extremity: The common femoral artery is patent with a mild to moderate stenosis present. The deep femoral artery is patent. The superficial femoral artery is occluded. The popliteal artery refills via collateral circulation above the knee joint and is patent into the trifurcation vessels. Trifurcation vessels are patent. The arterial phase imaging of the liver, spleen, adrenals, pancreas and kidneys is negative. Mild prostatic enlargement. Procedure Note Jagdish Irving M.D. - 08/12/2023 EXAM: CT ABD PELVIS ANGIO AND LOWER EXT RUNOFF BILAT WITH IV CONTRAST Including 3D image post-processing with or without AI assistance. COMPARISON: None FINDINGS: The visualized descending thoracic aorta is patent with mild irregularatherosclerotic plaque. The abdominal aorta is patent. Patent celiac,superior mesenteric and inferior mesenteric arteries. The renal arteriesare patent. 41 x 39 mm infrarenal abdominal aortic aneurysm. Aneurysm ends at the aortic bifurcation. Mildto moderate stenosis right common iliac artery. The remaining common iliacarteries are patent. Occlusion proximal right internal iliac artery withrefilling distally. The left internal iliac arteries occluded proximally as well. Mild stenoses bothproximal external iliac arteries. Right lower extremity: Patent common femoral and deep femoral arteries.The superficial femoral artery is occluded. The popliteal artery refillsvia collateral circulation above the knee and is patent to thetrifurcation vessels. The trifurcation vessels are patent. Left lower extremity: The common femoral artery is patent with a mild tomoderate stenosis present. The deep femoral artery is patent. Thesuperficial femoral artery is occluded. The popliteal artery refills viacollateral circulation above the knee joint and is patent into the trifurcation vessels. Trifurcation vesselsare patent. The arterial phase imaging of the liver, spleen, adrenals, pancreas andkidneys is negative. Mild prostatic enlargement. IMPRESSION: 41 x 39 mm infrarenal abdominal aortic aneurysm. Segmental occlusions bothinternal iliac arteries. Occlusion both superficial femoral arteries.Three-vessel runoff bilaterally. Anh DEL REAL CT PROCEDURES Final Res ult * CT Soft Tissue Ablation (07/08/2022 12:00 PM CDT) Anatomical Region Laterality Modality Whole body, Abdominal RST LO S, Neuroradiology ARZ LOS, Vascular Interventional ARZ LOS, Vascular Interventional FLA LOS, Procedural N/A Computed Tomography , Computed Tomography 07/09/2022 8:14 AM CDT Impressions 07/09/2022 5:[address]-guided percutaneous cryoablation of posterior shoulder metastasis. NR Narrative 07/09/2022 5:33 PM CDT EXAM: CT SOFT TISSUE ABLATION COMPARISON: PET/CT 05/15/2022, 01/23/2022, and 09/19/2021. 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 PRE-PROCEDURE: Patient seen and evaluated. Allergies, pertinent medications, and history reviewed. Discussed risks, benefits, alternatives for procedure, and obtained informed consent. Patient understands information and questions answered. Immediately prior to starting the procedure, in the presence of the assisting personnel, procedural pause was conducted to verify correct patient identity and verification of procedure to be performed, and as applicable, correct side and site, correct patient position, availability of implants, special equipment, or special requirements, and all image and specimen identification data. The roles and responsibilities of care team members, residents, and fellows were discussed. General anesthesia and/or sedation provided by Anesthesiology. TECHNIQUE: Risks, benefits, alternatives, and procedure of a CT-guided percutaneous cryoablation of right posterior shoulder soft tissue metastasis, seen on the most recent PET study, was discussed with the patient who agreed to continue. Specifically, the small risk of temporary or permanent weakness related to the supraspinatus or latissimus muscle, given that we will be freezing into both, was discussed. The patient was placed under general anesthesia by anesthesia colleagues and placed prone on the CT table. Selected axial images were taken through the right shoulder. The soft tissue nodule was identified and correlated to the patient's most recent PET study. The patient was then prepped and draped using sterile technique. Under intermittent CT fluoroscopic guidance, two short 17 R [employer] cryoablation probes were placed within the lesion. A test dose of gas was run through each needle to assure probe integrity. A 20-gauge Touhy needle was placed under the skin in the superior aspect of the shoulder in the subcutaneous fat overlying latissimus muscle. 40 cc of sterile saline was instilled to move the skin away from the ablation zone. When no gas was seen, the lesion was then cryoablated scanning every 2 minutes for 4 minutes. It was passively thawed for 8 minutes, and then re-cryoablated for 6 minutes at 100%. The probes were placed on active thaw for 10 minutes and then removed. Local hemostasis was achieved with manual compression. The patient tolerated the procedure well, there were no immediate complications and the patient was discharged from Radiology in stable condition. Procedure Note Pritesh Tee M.D. - 07/09/2022 EXAM: CT SOFT TISSUE ABLATION COMPARISON: PET/CT 05/15/2022, 01/23/2022, and 09/19/2021. PROCEDURE: CT-guided percutaneous ablation of a right posterior shouldersoft tissue metastasis. PRE-PROCEDURE: Patient seen and evaluated. Allergies, pertinentmedications, and history reviewed. Discussed risks, benefits, alternatives for procedure, and obtainedinformed consent. Patient understands information and questions answered. Immediately prior tostarting the procedure, in the presence of the assisting personnel, procedural pause was conducted toverify correct patient identity and verification of procedure to be performed, and as applicable,correct side and site, correct patient position, availability of implants, special equipment, orspecial requirements, and all image and specimen identification data. The roles and responsibilitiesof care team members, residents, and fellows were discussed. General anesthesia and/or sedationprovided by Anesthesiology. TECHNIQUE: Risks, benefits, alternatives, and procedure of a CT- guidedpercutaneous cryoablation of right posterior shoulder soft tissue metastasis, seen on the most recentPET study, was discussed with the patient who agreed to continue. Specifically, the small risk oftemporary or permanent weakness related to the supraspinatus or latissimus muscle, given that wewill be freezing into both, was discussed. The patient was placed under general anesthesia byanesthesia colleagues and placed prone on the CT table. [facility]. The soft tissue nodule was identified and correlated to the patient's most recentPET study. The patient was then prepped and draped using sterile technique. Under intermittent CTfluoroscopic guidance, two short 17 R [employer] cryoablation probes were placed within thelesion. A test dose of gas was run through each needle to assure probe integrity. A 20-gauge Touhyneedle was placed under the skin in the superior aspect of the shoulder in the subcutaneous fatoverlying latissimus muscle. 40 cc of sterile saline was instilled to move the skin away from the ablationzone. When no gas was seen, the lesion was then cryoablated scanning every 2 minutes for 4minutes. It was passively thawed for 8 minutes, and then re-cryoablated for 6 minutes at 100%. Theprobes were placed on active thaw for 10 minutes and then removed. Local hemostasis was achievedwith manual compression. The patient tolerated the procedure well, there were no immediatecomplications and the patient was discharged from Radiology in stable condition. IMPRESSION: CT-guided percutaneous cryoablation of posterior shoulder metastasis. NR Pritesh Tee M.D. IMG CT PROCEDURES Final R esult * LDA ANE ENDOTRACHEAL AIRWAY (07/08/2022 10:24 AM CDT) Narrative Eneida Raya APRN, CRNA, DNAP - 07/08/2022 10:24 AM CDT Eneida Raya APRN, CRNA, DNAP 07/08/2022 10:39 AM Airway Date/Time: 07/08/2022 10:24 AM Performed by: Eneida Raya APRN, CRNA, DNAP Authorized by: Eneida Raya APRN, CRNA, DNAP Patient location during procedure: OR / Procedure Area PROCEDURE DETAILS: Mask difficulty assessment: easy mask Final airway type: video laryngoscope Laryngeal Manipulation: no Final best view of glottic structures - Cormack/Lehane Score: grade 2A ETT location: oral VL device: glide scope [place] scope blade size: 4 Adult tube size: 7.5 Adult ETT distance at teeth/gum: 22 Oral tube type: standard ETT Cuffed: yes Number of attempt to successful placement: 1 Airway confirmation: bilateral breath sounds, positive ETCO2 and bilateral chest rise Other previous techniques attempted: none PRE PROCEDURE DETAILS: Pre evaluation for airway management: procedure Urgency: elective Preop assessment of probable difficulty: no difficulty anticipated Preoxygenation: bag valve mask SEDATION / ANESTHESIA Anesthesia method: anesthesia POST PROCEDURE DETAILS: Procedure outcome: successful Airway event: no complications Eneida Raya APRN, CRNA, DNAP ANESTHESIA ORD ERABLES Final Result * Prothrombin Time (PT) (07/08/2022 9:39 AM CDT) Only the most recent of2 resultswithin the time period is included. Prothrombin Time, P 10.5 9.4 - 12.5 sec 07/08/2022 9:51 AM CDT [facility] 1.0 0.9 - 1.1 07/08/2022 9:51 AM CDT [facility] Comment: ----ADDITIONAL INFORMATION---- Standard intensity warfarin therapeutic range: 2.0 to 3.0 High intensity warfarin therapeutic range: 2.5 to 3.5 Blood (Blood, Venous) 07/08/2022 9:39 AM CDT 07/08/2022 9:44 AM CDT Pritesh Tee M.D. LAB BLOOD ADD-ON Final Re sult [facility] [address] [place] [address], [facility] [address] [place] [address] * Aria Course Complete Treatment Information (03/07/2022 10:29 AM HISTORIC SITE ADMINISTRATOR) Only the most recent of3 resultswithin the time period is included. Course ID 2xShoulde rSBRT BHATT ARIA Course Start Date 2 10:13 HISTORIC SITE ADMINISTRATOR BHATT ARIA Course End Date 2 13:07 HISTORIC SITE ADMINISTRATOR BHATT ARIA First Treatment Date 2 13:26 HISTORIC SITE ADMINISTRATOR BHATT ARIA Last Treatment Date 2 10:29 HISTORIC SITE ADMINISTRATOR BHATT ARIA Treatment Elapsed Days 4 BHATT ARIA Reference Point [id number] BHATT ARIA Dosage Given to Date cGy 3000 BHATT ARIA Plan ID [id number] BHATT ARIA Fractions Treated to Date 3 BHATT ARIA Planned Total Fractions 3 BHATT ARIA Prescribed Dose Per Fraction 1000 BHATT ARIA Prescription Dose in cGy 3000 BHATT ARIA Plan Primary Reference Point [id number] BHATT ARIA 03/07/2022 10:2 9 AM HISTORIC SITE ADMINISTRATOR us Provider Not In System RADIATION ONCOLOGY ORDERA BLES Final Result BHATT ARIA na * Aria Daily Treatment Information (03/07/2022 10:29 AM HISTORIC SITE ADMINISTRATOR) Only the most recent of33 resultswithin the time period is included. Course ID 2xShoulde rSBRT BHATT ARIA Course Start Date 2 10:13 HISTORIC SITE ADMINISTRATOR BHATT ARIA First Treatment Date 2 13:26 HISTORIC SITE ADMINISTRATOR BHATT ARIA Last Treatment Date 2 10:29 HISTORIC SITE ADMINISTRATOR BHATT ARIA Treatment Elapsed Days 4 BHATT ARIA Reference Point [id number] BHATT ARIA Dosage Given to Date cGy 3000 BHATT ARIA Session Dosage Given 1000 BHATT ARIA Plan ID [id number] BHATT ARIA Fractions Treated to Date 3 BHATT ARIA Planned Total Fractions 3 BHATT ARIA Prescribed Dose Per Fraction 1000 BHATT ARIA Prescription Dose in cGy 3000 BHATT ARIA Plan Primary Reference Point [id number] BHATT ARIA 03/07/2022 10:2 9 AM HISTORIC SITE ADMINISTRATOR us Provider Not In System RADIATION ONCOLOGY ORDERA BLES Final Result MILLER HILTON na * Initial Rad Onc Treatment Planning CT Simulation (02/24/2022 10:00 AM HISTORIC SITE ADMINISTRATOR) Only the most recent of2 resultswithin the time period is included. Narrative BHATT ARIA - 02/24/2022 10:00 AM HISTORIC SITE ADMINISTRATOR Olamide Paul, RTT 02/24/2022 10:24 AM Initial Rad Onc Treatment Planning CT Simulation Performed by: Whit Meade M.D. Authorized by: Whit Meade M.D. us Whit Meade M.D. RADIATION ONCOLOGY ORDERA BLES Final Result MILLER HILTON na * [place] ARTL CATH/CNULA MONITOR PERC, LDA ANE ARTERIAL LINE INSERTION (10/23/2021 3:02 PM CDT) Narrative Heavenly Barber APRN, JATIN - 10/23/2021 3:02 PM CDT Heavenly Barber APRN, PHOTO OPTICS TECHNICIAN 10/23/2021 3:02 PM Invasive Catheter Date/Time: 10/23/2021 3:02 PM Performed by: Demetrice Christina APRN, CRNA, DNAP Authorized by: eDmetrice Christina APRN, CRNA, DNAP Location: OR PROCEDURE DETAILS: Line type: arterial Laterality: left Location: radial Location details: new site Age group: adult Catheter diameter: 20 Ga Technique: palpation Monitored: yes Number of attempts: 1 UNIVERSAL PROTOCOL All relevant documentation and testing were reviewed and available. All required blood products, implants, devices and or special equipment were made available as applicable. Pre-procedure verification was conducted and the correct site was marked if required. A fire risk assessment was done as applicable. The procedural time-out to verify correct patient, correct side/site, and procedure was conducted prior to performing the procedure and confirmed in a procedural pause. PRE-PROCEDURE DETAILS: Appropriate hand hygiene, gown, cap, mask, protective eyewear, sterile gloves, skin preparation, sterile drape, and strict aseptic technique were utilized as applicable for the procedure.: yes Skin preparation: chlorhexidine SEDATION / ANESTHESIA Anesthesia method: none POST-PROCEDURE DETAILS: Procedure completed successfully: yes Line secured: secured with sutureless device Chlorhexidine disc around insertion site and under catheter with slight turn: yes Complications - arterial: none Demetrice Christina APRN, CRNA, DNAP PROCEDURE/MIN OR SURGICAL ORDERABLES Final Result * CT Spine Ablation (10/23/2021 2:54 PM CDT) Anatomical Region Laterality Modality Spine, Neuroradiology RST LO S, Musculoskeletal RST LOS, Neuroradiology ARZ LOS, Muskuloskeletal FLA LOS, Neuroradiology FLA LOS, Neuro Interventional FLA LOS, Procedural N/A Computed Tomography , Computed Tomography 11/05/2021 2:13 PM CDT Impressions 11/05/2021 4:18 PM CDT Left paraspinal T2 throughT3-T4 cryoablation. Intraoperative neural monitoring. No change in neural monitoring. NR Narrative 11/05/2021 4:18 PM CDT EXAM: CT SPINE ABLATION COMPARISON: PET study September 19, 2021 MRI of the thoracic spine October 22, 2021. FINDINGS: Risk, benefits, alternatives and procedure of a left T2 throughT3-T4 paraspinal cryoablation were discussed with the patient who agreed to continue. Patient was placed under total IV anesthesia and neural monitoring was placed by the Neurology Department including three proximal muscles and two distal muscles. The patient was placed prone on the CT table and selected axial images were taken through the lower cervical-upper thoracic spine. The patient was then prepped, draped and anesthetized using sterile technique. Under intermittent CT fluoroscopic guidance an 11-gauge 12 cm People to Remember bone access needle was used to make a pilot boat operator hole through the transverse process and costovertebral junction. A total of three cryoablation probes were placed, vertically stacked along the left T2 throughT3-T4 paraspinal spaces, including two variable probes set to 4.0 and a PERC-17 R ZuzuChe cryoablation probe. The probes were tested outside of the body to assure integrity as well as a test dose of gas performed after the probes were in their final position to assure there was no leak. The lesion was then cryoablated 100% for 6 minutes, passively thawed for 12 minutes. The lesion was re-cryoablated for 6 minutes and actively thawed for 5 minutes. The lesion was then cryoablated a third time for 5.5 minutes. There was no change in neural monitoring throughout the case. All needles were removed and local hemostasis was achieved with manual compression after actively thawing the probes. The patient was discharged from Radiology in stable condition. PREPROCEDURE: Patient seen, evaluated, and history reviewed. Discussed risks, benefits, alternatives for procedure, and obtained informed consent. Patient understands information and questions answered. Immediately prior to starting the procedure, in the presence of the assisting personnel, procedural pause was conducted to verify correct patient identity and verification of procedure to be performed, and as applicable, correct side and site, correct patient position, availability of implants, special equipment, or special requirements, and all image and specimen identification data. The roles and responsibilities of care team members, residents, and fellows were discussed. Total IV sedation provided by the Anesthesia Department. Procedure Note Pritesh Tee M.D. - 11/05/2021 EXAM: CT SPINE ABLATION COMPARISON: PET study September 19, 2021 MRI of the thoracic spine October. FINDINGS: Risk, benefits, alternatives and procedure of a left [id number] paraspinal cryoablation were discussed with the patient who agreed to continue.Patient was placed under total IV anesthesia and neural monitoring was placed by the Neurology Departmentincluding three proximal muscles and two distal muscles. The patient was placed prone on the CTtable and selected axial images were taken through the lower cervical-upper thoracic spine. Thepatient was then prepped, draped and anesthetized using sterile technique. Under intermittent CTfluoroscopic guidance an 11-gauge 12 cm People to Remember bone access needle was used to make a pilot boat operator holethrough the transverse process and costovertebral junction. A total of three cryoablation probeswere placed, vertically stacked along the left T2 throughT3-T4 paraspinal spaces, including twovariable probes set to 4.0 and a PERC-17 R ZuzuChe cryoablation probe. The probes were tested outsideof the body to assure integrity as well as a test dose of gas performed after the probes were intheir final position to assure there was no leak. The lesion was then cryoablated 100% for 6minutes, passively thawed for 12 minutes. The lesion was re-cryoablated for 6 minutes and activelythawed for 5 minutes. The lesion was then cryoablated a third time for 5.5 minutes. There was nochange in neural monitoring throughout the case. All needles were removed and local hemostasis wasachieved with manual compression after actively thawing the probes. The patient was dischargedfrom Radiology in stable condition. PREPROCEDURE: Patient seen, evaluated, and history reviewed. Discussedrisks, benefits, alternatives for procedure, and obtained informed consent. Patient understandsinformation and questions answered. Immediately prior to starting the procedure, in the presence ofthe assisting personnel, procedural pause was conducted to verify correct patient identity andverification of procedure to be performed, and as applicable, correct side and site, correct patientposition, availability of implants, special equipment, or special requirements, and all image andspecimen identification data. The roles and responsibilities of care team members, residents, andfellows were discussed. Total IV sedation provided by the Anesthesia Department. IMPRESSION: Left paraspinal T2 throughT3-T4 cryoablation. Intraoperative neuralmonitoring. No change in neural monitoring. NR us Pritesh Tee M.D. IMG CT PROCEDURES Final R esult * LDA ANE ENDOTRACHEAL AIRWAY (10/23/2021 12:03 PM CDT) Narrative Heavenly Barber APRN, CRNA - 10/23/2021 12:03 PM CDT Heavenly Barber APRN, CRNA 10/23/2021 12:54 PM Airway Date/Time: 10/23/2021 12:03 PM Performed by: Heavenly Barber APRN, CRNA Authorized by: Heavenly Barber APRN, CRNA Patient location during procedure: OR / Procedure Area PROCEDURE DETAILS: Mask difficulty assessment: oral/nasal airway needed Final airway type: direct laryngoscopy, intubation Laryngeal Manipulation: no Final airway difficulty of direct laryngoscopy (DL): 0-easy Final best view of glottic structures - Cormack/Lehane Score: grade 2A ETT location: oral Adult tube size: 7.5 Adult ETT distance at teeth/gum: 22 Oral tube type: standard ETT Cuffed: yes Number of attempt to successful placement: 1 Airway confirmation: bilateral breath sounds, positive ETCO2 and bilateral chest rise Other previous techniques attempted: none PRE PROCEDURE DETAILS: Pre evaluation for airway management: procedure Urgency: elective Preoxygenation: bag valve mask SEDATION / ANESTHESIA Anesthesia method: anesthesia POST PROCEDURE DETAILS: Procedure outcome: successful Airway event: no complications Heavenly Barber APRN, CRNA ANESTHESIA ORDERABLES Final Result * IONM - EMG (10/23/2021 11:16 AM CDT) 10/23/2021 9:00 AM CDT Narrative [facility] - 10/23/2021 2:49 PM CDT Table formatting from the original result was not included. 23-Oct-2021 Intraoperative Monitoring Final Report Study Number: 1 EMG Community Life Director: Cem Pan. 127 or [phone] Referred by: PRITESH TEE (127 or [phone]) Referred for: Referral Code: 1975 RX: 1975 SUMMARY: Transcranial electric motor evoked potentials (MEPs) were monitored during thermal ablation of a soft tissue lesion in the left lateral aspect T2 and T3. All stimulation and recording was performed with needle electrodes. MEPs were recorded from the following muscles bilaterally: abductor digiti minimi, adductor longus, rectus femoris, vastus lateralis, tibialis anterior, and abductor hallucis. MEP Reliable MEPs were recorded at baseline from the hands and muscles distal to the knee bilaterally (proximal lower limb muscles had marginal responses) in the supine position; the radiologist was informed prior to probe placement. The left lower limb muscle MEPs decreased shortly after thawing commenced after the third freeze. Rectus femoris and abductor hallucis had the lowest nadirs at 87% and 84% down from baseline, respectively. All left lower limb responses gradually recovered and where no more than 21% down from baseline in any muscle. The following physicians provided exclusive direct professional oversight for the following intervals of the surgery without providing oversight for other concurrent surgical monitoring during the specified intervals or performing other direct patient care activities. Real-time neurophysiologic data was available to view and interrogate contemporaneously. Throughout monitoring, there were provisions for continuous and immediate communication directly with the operating room team in the surgical suite. Dr. Pan: from 13:23 to 14:42 Supervision for minutes of the surgery not listed above was provide by Dr. Triana while she was also providing oversight for other surgical monitoring. Those minutes are not included in the submitted billing. Pawan Pan (127 or [phone])/[facility] Surgery Staff Minutes Start-DateTime End-DateTime Community Life Director 130 10/23/2021 12:32 PM HISTORIC SITE ADMINISTRATOR 10/23/2021 14:42 PM HISTORIC SITE ADMINISTRATOR Flyer Repairer 130 10/23/2021 12:32 PM HISTORIC SITE ADMINISTRATOR 10/23/2021 14:42 PM HISTORIC SITE ADMINISTRATOR This interpretation has been electronically signed: Cem Pan, DO, PhD at 10/23/2021 2:45:22 PM CDT Procedure Note Chin Pan D.O., Ph.D. - 10/23/2021 23-Oct-2021 Intraoperative Monitoring FinalReport Study Number: 1 EMG Community Life Director: Cem Pan. 127 or [phone] Referred by: PRITESH TEE (127 or [phone]) Referred for: Referral Code: 1975 RX: 1976 SUMMARY: Transcranial electric motor evoked potentials (MEPs) weremonitored during thermal ablation of a soft tissue lesion in the left lateral aspect T2 and T3. Allstimulation and recording was performed with needle electrodes. MEPs were recorded fromthe following muscles bilaterally: abductor digiti minimi, adductor longus, rectus femoris,vastus lateralis, tibialis anterior, and abductor hallucis. MEP Reliable MEPs were recorded at baseline from the hands and muscles distal to the knee bilaterally (proximal lower limbmuscles had marginal responses) in the supine position; the radiologist was informed prior toprobe placement. The left lower limb muscle MEPs decreased shortly after thawing commenced after thethird freeze. Rectus femoris and abductor hallucis had the lowest nadirs at 87% and 84% downfrom baseline, respectively. All left lower limb responses gradually recovered and whereno more than 21% down from baseline in any muscle. The following physicians provided exclusive direct professional oversight for the following intervals of the surgery withoutproviding oversight for other concurrent surgical monitoring during the specified intervals orperforming other direct patient care activities. Real-time neurophysiologic data was available toview and interrogate contemporaneously. Throughout monitoring, there were provisions forcontinuous and immediate communication directly with the operating room team in the surgicalsuite. Dr. Pan: from 13:23 to 14:42 Supervision for minutes of the surgery not listed above was provide by Dr. Triana while she was also providing oversight for other surgicalmonitoring. Those minutes are not included in the submitted billing. Pawan Pan (127 or [phone])/[facility] Surgery Staff Minutes Start-DateTime End-DateTime Community Life Director 130 10/23/2021 12:32 PM HISTORIC SITE ADMINISTRATOR 10/23/2021 14:42 PM HISTORIC SITE ADMINISTRATOR Flyer Repairer 130 10/23/2021 12:32 PM HISTORIC SITE ADMINISTRATOR 10/23/2021 14:42 PM HISTORIC SITE ADMINISTRATOR This interpretation has been electronically signed: Cem Pan DO, PhD at 10/23/2021 2:45:22 PM CDT us Pritesh Tee M.D. NEUROLOGY ORDERABLES Edit ed Result - Final [facility] * Creatinine, POCT (10/23/2021 10:52 AM CDT) Creatinine, POCT, B 0.8 0.7 - 1.4 mg/dL 10/23/2021 10:57 AM CDT PCSM Comment: ----ADDITIONAL INFORMATION---- Performed at the Point of Care eGFR-Black/Afric an Paraguayan, POCT >90 >=60 mL/min/BSA 10/23/2021 10:58 AM CDT PCSM Comment: ----ADDITIONAL INFORMATION---- Estimated GFR calculated using the 2009 CKD_EPI creatinine equation. eGFR Non-Black/Aissatou n [place]ayan, POCT >90 >=60 mL/min/BSA 10/23/2021 10:58 AM CDT PCSM Comment: ----ADDITIONAL INFORMATION---- Estimated GFR calculated using the 2009 CKD_EPI creatinine equation. Blood 10/23/2021 10:5 2 AM CDT 10/23/2021 10:58 AM CDT us Unknown Provider LAB POCT ORDERABLES - DEVICE Fi nal Result POC RST [facility] [address] [place] [address], [facility] POC [address] [place] [address] * SARS CoV-2 RNA, PCR, Varies Asymptomatic (10/22/2021 9:49 AM CDT) SARS CoV-2 RNA, PCR, Source Swab, Nasopharynx 10/22/2021 2:34 PM CDT DTL SARS CoV-2 RNA, PCR Undetected Undetected 10/22/2021 2:34 PM CDT DTL Comment: SARS-CoV-2 RNA absent. This result does not rule out COVID-19 in the patient, as the sensitivity of the test depends on the timing of the specimen collection and quality of the specimen. Result should be correlated with patient's history and clinical presentation. ----ADDITIONAL INFORMATION---- This RT-PCR test has received Emergency Use Authorization (EUA) by the U.S. Food and Drug Administration and is used per event set up specialist's instructions. Performance characteristics were verified by [facility] in a manner consistent with CLIA requirements. Visit the CDC website: https://www.cdc.gov/coronavirus/ for the most recent guidelines on Coronavirus testing. Fact Sheet for Healthcare Providers: https://www.fda.gov/media/004202/download Fact Sheet for Patients: https://www.fda.gov/media/814527/download Varies (Nasopharynx) 10/22/2021 9:49 AM CDT 10/22/2021 10:30 AM CDT us Pritesh Tee M.D. LAB MICROBIOLOGY - GENERA L ORDERABLES Final Result [facility] [address] [place] [address], [facility] [address] [place] [address] * MR Thoracic Spine without and with IV Contrast (10/22/2021 7:46 AM CDT) Anatomical Region Laterality Modality Thoracic Spine, Neuroradiolo gy RST LOS, Neuroradiology ARZ LOS, Neuroradiology FLA LOS N/A Magnetic Resonance 10/22/2021 8:04 AM CDT Impressions 10/22/2021 8:13 AM CDT Examination performed for ablation planning purposes. Please see discussion of paravertebral soft tissue mass along the left lateral aspect of T2 and T3. Narrative 10/22/2021 8:13 AM CDT EXAM: MR THORACIC SPINE WITHOUT AND WITH IV CONTRAST COMPARISON: MRI of the thoracic spine dated 02/14/2021 FINDINGS: As partially visualized on 02/14/2021, there is a paravertebral soft tissue mass along the left lateral aspect of the T2 and T3 vertebral bodies with involvement of the left lateral margin of the T2 vertebral body as well as the transverse process of T3 with soft tissue extension into the left T2 and T3 neural foramen. Most of the soft tissue mass, however, is paravertebral with extension to involve the left 2nd and 3rd ribs and adjacent pleural space. Normal signal within the thoracic cord with nothing convincing for epidural disease. Mild scattered degenerative changes in the thoracic spine. Remainder negative. Procedure Note Bradley Saldivar M.D. - 10/22/2021 EXAM: MR THORACIC SPINE WITHOUT AND WITH IV CONTRAST COMPARISON: MRI of the thoracic spine dated 02/14/2021 FINDINGS: As partially visualized on 02/14/2021, there is a paravertebralsoft tissue mass along the left lateral aspect of the T2 and T3 vertebral bodies with involvement ofthe left lateral margin of the T2 vertebral body as well as the transverse process of T3 with softtissue extension into the left T2 and T3 neural foramen. Most of the soft tissue mass, however, isparavertebral with extension to involve the left 2nd and 3rd ribs and adjacent pleural space.Normal signal within the thoracic cord with nothing convincing for epidural disease. Mild scattereddegenerative changes in the thoracic spine. Remainder negative. IMPRESSION: Examination performed for ablation planning purposes. Please seediscussion of paravertebral soft tissue mass along the left lateral aspect of T2 andT3. Whit Meade M.D. IM MRI PROCEDURES Final Result * CHEST, 2V-Outside Chest Xray (08/14/2021 2:30 PM CDT) Only the most recent of2 resultswithin the time period is included. Narrative [facility] - 08/23/2021 10:05 AM CDT This order has been created and auto-finalized to support the import of outside images. If available, original interpretation can be found on the Media Tab in Chart Review, in Document Viewer, or as an image in QREADS. If a re-interpretation or overread is required please follow defined workflow. Provider Not In System [facility] DIAGNOSTIC IMAG[facility] [place] OCEDURES Final Result [facility] NA * CHEST W/CONTRAST-Outside CT Body (06/06/2021 10:45 AM CDT) Only the most recent of3 resultswithin the time period is included. Narrative [facility] - 06/07/2021 3:19 PM CDT This order has been created and auto-finalized to support the import of outside images. If available, original interpretation can be found on the Media Tab in Chart Review, in Document Viewer, or as an image in QREADS. If a re-interpretation or overread is required please follow defined workflow. us Provider Not In System IMG CT PROCEDURES Final R esult Performing Organization Address [facility] Co de Phone Number [facility] NA * (ABNORMAL) Creatinine with Estimated GFR (03/22/2021 12:47 PM HISTORIC SITE ADMINISTRATOR) EXT Creatinine 0.7(A) 0.73 - 1.36 mg/dL [facility] Blood (Blood, Venous) 03/22/2021 12:47 PM HISTORIC SITE ADMINISTRATOR Whit Meade M.D. LAB BLOOD ADD-ON Final Re sult Performing Organization Address [facility] de Phone Number [facility] [address] [place] [address] * XR SPINE CERVICAL 4 OR 5 VIEWS-Outside Skeletal Xray (01/09/2021 8:05 AM CDT) Only the most recent of2 resultswithin the time period is included. Narrative [facility] - 03/19/2021 9:48 AM HISTORIC SITE ADMINISTRATOR This order has been created and auto-finalized to support the import of outside images. If available, original interpretation can be found on the Media Tab in Chart Review, in Document Viewer, or as an image in PoyntEADS. If a re-interpretation or overread is required please follow defined workflow. us Provider Not In System IMG DIAGNOSTIC IMAGING [place] OCEDURES Final Result Performing Organization Address [facility] de Phone Number [facility] NA Visit Diagnoses Diagnosis Start Date 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) 03/20/2021 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) 03/22/2021 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) 03/22/2021 Nicotine Dependence 03/22/2021 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) 03/25/2021 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) 03/25/2021 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) 04/01/2021 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) 04/02/2021 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) 04/09/2021 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) 04/10/2021 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) 04/10/2021 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) 04/16/2021 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) 04/23/2021 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) 04/30/2021 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) 05/08/2021 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) 06/19/2021 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) 08/22/2021 Nicotine Dependence 08/22/2021 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) 2021 Lesion Bone 2021 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) 10/10/2021 Lesion Bone 10/15/2021 Preprocedural Lab Exam 10/15/2021 Encounter For Preprocedural Laboratory Examination (COVID-19) 10/15/2021 Lesion Bone 10/18/2021 Emphysema (HCC) 10/18/2021 Hypertension Essential Primary 10/18/2021 Major Depressive Disorder, Recurrent, Unspecified 10/18/2021 Preanesthetic Medical Exam 10/18/2021 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) 10/22/2021 Lesion Bone 10/22/2021 Lesion Bone 10/22/2021 Lesion Bone 10/23/2021 Pain Right Upper Quadrant 10/29/2021 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) 10/29/2021 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) 11/28/2021 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) 02/14/2022 Secondary Malignant Neoplasm Soft Tissue (HCC) 02/17/2022 Secondary Malignant Neoplasm Soft Tissue (HCC) 02/24/2022 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) 02/24/2022 Secondary Malignant Neoplasm Soft Tissue (HCC) 03/07/2022 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) 03/07/2022 Secondary Malignant Neoplasm Soft Tissue (HCC) 03/05/2022 Nicotine Dependence 03/05/2022 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) 05/28/2022 Secondary Malignant Neoplasm Soft Tissue (HCC) 06/02/2022 Lesion Soft Tissue 06/04/2022 Secondary Malignant Neoplasm Soft Tissue (HCC) 06/24/2022 Preanesthetic Medical Exam 06/26/2022 Lesion Soft Tissue 06/26/2022 Secondary Malignant Neoplasm Soft Tissue (HCC) 06/26/2022 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) 06/26/2022 Emphysema (HCC) 06/26/2022 Alcohol Moderate Or Severe Use Disorder (Dependence) Uncomplicated (HCC) 06/26/2022 Nicotine Dependence Unspecified 06/26/2022 Major Depressive Disorder, Recurrent, Unspecified 06/26/2022 Hypertension Essential Primary 06/26/2022 Lesion Soft Tissue 07/08/2022 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) 09/30/2022 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) 04/21/2023 Aortic Ectasia 07/14/2023 Aortic Ectasia 07/14/2023 Ischemic Limb 07/14/2023 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 08/02/2023 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 08/03/2023 Aortic Ectasia 08/03/2023 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 08/03/2023 Nicotine Dependence Cigarettes 08/03/2023 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) 08/03/2023 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 08/12/2023 Nicotine Dependence Cigarettes 08/12/2023 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 08/12/2023 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 08/12/2023 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 08/16/2023 Atherosclerosis Arteriosclerosis [place]iter[place] Lower Extremity With Claudication 09/15/2023 Atherosclerosis Arteriosclerosis [place] Lower Extremity With Claudication 10/01/2023 Atherosclerosis Arteriosclerosis [place] Lower Extremity With Claudication 10/02/2023 Atherosclerosis Arteriosclerosis [place] Lower Extremity With Claudication 10/01/2023 Atherosclerosis Arteriosclerosis [place] Lower Extremity With Claudication 11/18/2023 Atherosclerosis Arteriosclerosis [place] Lower Extremity With Claudication 11/18/2023 Atherosclerosis Arteriosclerosis [place] Lower Extremity With Claudication 11/18/2023 Peripheral Arterial Disease 11/18/2023 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) 02/29/2024 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) 05/23/2024 Atherosclerosis Arteriosclerosis [place] Lower Extremity With Claudication 08/19/2024 Nicotine Dependence Unspecified 10/01/2023 Hypertension NOS 10/01/2023 Emphysema (HCC) 10/01/2023 Anemia Aplastic (HCC) 10/01/2023
--- OUTSIDE RECORDS SUMMARY | 2024-08-28 15:55 | XMS_ITS | Encounter Summary ---
Author Organization [facility] Address [address] [place] [address] Care Team Providers Care Court Assistant Name Role Phone Unavailable Primary Care Provider Unavailabl e Reason for Referral * Outpatient (Routine) - Authorized Specialty Diagnoses / Procedures Referred By Henrietta santana Referred To Contact Diagnoses Atherosclerosis Arteriosclerosis [place] Lower Extremity With Claudication Procedures US Lower Extremity Arteries Right Mikal Pino M.D., M.S. [address] [place] [phone] Phone: tel: fax: [facility] Referral ID Status Reason Start Date Expiration Date V isits Requested Visits Authorized [id number] Authorized 08/19/2024 11/19/2025 1 1 * Cardiovascular-Diagnostic (Routine) - Authorized Specialty Diagnoses / Procedures Referred By Henrietta santana Referred To Contact Diagnoses Atherosclerosis Arteriosclerosis [place] Lower Extremity With Claudication Procedures Lower Extremity Arterial (BRENDA) - Standard Protocol Mikal Pino M.D., M.S. [address] [place] [address] Phone: tel: fax: [facility] Referral ID Status Reason Start Date Expiration Date V isits Requested Visits Authorized [id number] Authorized 08/19/2024 11/19/2025 1 1 * Outpatient (Routine) - Authorized Specialty Diagnoses / Procedures Referred By Henrietta santana Referred To Contact Vascular Medicine Diagnoses Atherosclerosis Arteriosclerosis [place] Lower Extremity With Claudication Mikal Pino M.D., M.S. [address] [place] [phone] Phone: tel: fax: [facility] Referral ID Status Reason Start Date Expiration Date V isits Requested Visits Authorized [id number] Authorized 08/19/2024 02/18/2026 1 1 Encounter Details Date Type Department Care Team (Late st Contact Info) Description 08/19/2024 Clinical Communication Division of Vascular and Endovascular Surgery in [place], [place] [address] [place] [phone] Fredrick Regan M.B., Ch.B., Ph.D. [address] [place] [phone] Social History Tobacco Use Types Packs/Day Years Used Date Smoking Tobacco: Every Day Cigarettes 0.3 51.5 Started: 03/16/1973 Smokeless Tobacco: Never Alcohol Use Standard Drinks/Week Comments Yes 9 (1 standard drink = 0.6 oz pur e alcohol) 3-4 daily [facility] Utilities Answer Date Recorded In the past 12 months has [facility] [email or web address], gas, oil, or water [employer] threatened to shut off services in your [...] How often do you attend chur or cheondoism services? 1 to 4 times per year 06/19/2022 Do you belong to any clubs o r organizations such as sikh groups, unions, fraternal or athletic groups, or [...] and heating? Not hard at all 06/19/2022 [facility] - Occupational [...] your living situation today? I have a [facility] place to live 08/02/2023 Education Answer Date Recorded What is the highest level of school you have completed or the highest degree you have received? Some college, no degree 04/01/2021 Sex and Gender Information Value Date Recorded Sex Assigned at Male 04/01/2021 8:09 PM CRISIS MENTAL HEALTH THERAPIST Legal Sex Male 11:17 AM CRISIS MENTAL HEALTH THERAPIST Gender Identity Male 04/01/2021 8:09 PM CRISIS MENTAL HEALTH THERAPIST Sexual Orientation Straight 04/01/2021 8: 09 PM CRISIS MENTAL HEALTH THERAPIST documented as of this encounter Plan of Treatment Scheduled Orders Name Type Priority Associated Diagnoses Orde r Schedule Lower Extremity Arterial (BRENDA) - Standard Protocol Vascular Ultrasound Routine Atherosclerosis Arteriosclerosis [place] Lower Extremity With Claudication 1 Occurrences starting 08/19/2024 until 10/28/2026 Lower Extremity Arteries Right Imaging RAD - Routine (most inpatients and all outpatients) Atherosclerosis Arteriosclerosis [place] Lower Extremity With Claudication 1 Occurrences starting 08/19/2024 until 10/28/2026 Scheduled Referrals Name Type Priority Associated Diagnoses Orde r Schedule Vascular Medicine - Vascular surveillance consult (clinic) Outpatient Referral Routine Atherosclerosis Arteriosclerosis [place] Lower Extremity With Claudication Expected: 08/19/2024 (Approximate), Expires: 11/19/2025 documented as of this encounter Visit Diagnoses Diagnosis Atherosclerosis Arteriosclerosis [place]iter[place] Lower Extremity With Claudication- Primary documented in this encounter Additional Health Concerns Infection Onset Date Last Indicated Resolved Time Protective Environment 08/03/2023 08/03/2023 documented as of this encounter
--- OUTSIDE RECORDS SUMMARY | 2024-08-28 15:55 | XMS_ITS ---
Author Organization [facility] Address [address] [place] [address] Care Team Providers Care Negative Turner Apprentice Name Role Phone Unavailable Primary Care Provider Unavailabl e Active Problems * This document contains information received from the source organization and may not represent a complete record from that organization. Problem Noted Date Diagnosed Date Anemia Aplastic [...] upper lungs 06/22 Nicotine Dependence Unspecified 07/09/2005 Current Treatment and Therapy Plans No current plan information found. Past Treatment and Therapy Plans No past plan information found. Past Radiation Episodes * IMRT: BoneOverview* First Treatment Date Last Treatment Date Treatment Site Technique Goal Episode Provider 03/03/2022 03/07/2022 Bone IMRT Palliative * Linked Problems Secondary Malignant Neoplasm Soft Tissue Treatment Courses* Course [id number] 03/03/2022 - 03/07/2022 Treatment Period Fraction Dose Fractions Total Dose Plans Planned [id number] 03/03/2022 - 03/07/2022 1,000 cGy 3 / 3 3,000 cGy Reference Points Delivered [id number] 03/03/2022 - 03/07/2022 3,000 cGy * IMRT: Left Lung - Upper lobe, Left Bone - RibOverview* First Treatment Date Last Treatment Date Treatment Site Technique Goal Episode Provider 04/01/2021 05/13/2021 Left Upper lobe of lungLeft Rib IMRT Curative * Linked Problems Malignant Neoplasm Of Lung U pper Lobe Or Bronchus Left Treatment Courses* Course 1x [id number] 04/01/2021 - 05/13/2021 Treatment Period Fraction Dose Fractions Total Dose Plans Planned [id number] 04/01/2021 - 05/13/2021 200 cGy 30 / 30 6 ,000 cGy [id number] 04/15/2021 - 04/24/2021 1,000 cGy 5 / 5 5,000 cGy Reference Points Delivered [id number] 04/01/2021 - 05/13/2021 6,000 cGy [id number] 04/15/2021 - 04/24/2021 5,000 cGy Lifetime Dose Tracking * Chemical Lifetime Dose Automatic Entry Manual Entr y Radiation 328 mGy 0 mGy 328 mGy Fluoro Time 124 minutes 0 minutes 124 minutes DAP (Gy-cm2) 91.13 Gy-cm2 0 Gy-cm2 91.13 Gy-cm2
--- OUTSIDE RECORDS SUMMARY | 2024-08-28 15:55 | XMS_ITS | Encounter Summary ---
Author Organization [facility] Address [address] [place] [address] Care Team Providers Care Rn Flight Name Role Phone Unavailable Primary Care Provider Unavailabl e Encounter Details Date Type Department Care Team (Late st Contact Info) Description 07/29/2024 Clinical Communication Department of Radiation Oncology in [place], [place] [address] [place] [phone] Whit Meade M.D. [address] [place] [phone] Social History Tobacco Use Types Packs/Day Years Used Date Smoking Tobacco: Every Day Cigarettes 0.3 51.5 Started: 03/16/1973 Smokeless Tobacco: Never Alcohol Use Standard Drinks/Week Comments Yes 9 (1 standard drink = 0.6 oz pur e alcohol) 3-4 daily [facility] Utilities Answer Date Recorded In the past 12 months has [facility] [employer], gas, oil, or water [employer] threatened to shut off services in your [...] How often do you attend chur or latter day services? 1 to 4 times per year [...] and heating? Not hard at all 06/19/2022 [facility] - Occupational [...] your living situation today? I have a [facility] place to live 08/02/2023 Education Answer Date Recorded What is the highest level of school you have completed or the highest degree you have received? Some college, no degree 04/01/2021 Sex and Gender Information Value Date Recorded Sex Assigned at Male 04/01/2021 8:09 PM TAX DIRECTOR Legal Sex Male 11:17 AM TAX DIRECTOR Gender Identity Male 04/01/2021 8:09 PM TAX DIRECTOR Sexual Orientation Straight 04/01/2021 8: 09 PM TAX DIRECTOR documented as of this encounter Miscellaneous Notes * Telephone Encounter - Denia Ballesteros - 07/29/2024 2:45 PM CDT Other Reason for Call Caller: Jacinto Relationships to patient: Speech therapist Facility name: [facility] Outpatient Rehab Reason for call: Jacinto called as she had spoken to Mckenzie. Jacinto would like to talk to someone again as she has some questions. She is wondering if we treated as high has his pharynx and epiglottis area? She has some concerns looking at his x- rays. She said someone could call her back early next week at [phone]. documented in this encounter Plan of Treatment Not on file documented as of this encounter Visit Diagnoses Not on filedocumented in this encounter Additional Health Concerns Infection Onset Date Last Indicated Resolved Time Protective Environment 08/03/2023 08/03/2023 documented as of this encounter
--- NOTE | 2024-08-28 16:01 | ED_ITS ---
HPI - General Adult General Time Seen by Provider: 16:02 Date Seen: 08/28/24 Chief complaint: Weakness Stated complaint: Loss of Appetite, confusion Time Seen by Provider: 08/28/24 16:01 Source: patient, RN notes reviewed and old records reviewed Mode of arrival: ambulatory Limitations: no limitations History of Present Illness HPI narrative: This 68-year-old male is coming in today accompanied by his with complaints of not feeling well, feeling tired, feeling weak, having no appetite. 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 He states he just really has not rebounded back. He has not noted any fevers or chills. No increased cough for respiratory symptoms, no new pain or concern infectious etiology or anything specific of that nature. He got up at 7 this morning, was back to bed by 8:00 a.m.. Was weak enough that he had a near fall, did go down to his knee but did not fall. He has been more confused today, asked about the weather twice. Had difficulty remembering events earlier in the day. She feels the confusion began around noon. He states he has had some left tingling in his hand, on further questioning does note that his feet at times have been numb and tingly. He is not aware that he has had peripheral neuropathy from prior cancer treatments. He does state that he has some nasal congestion. His left hand feels tingly, the numbness tingling in this arm somewhat comes and goes. There is maybe some pain in the upper shoulder area. He does feel that this may be reminiscent of his early symptoms that he felt. In review of his oncology note from August 01, he is noted to have complaints of aches and pains in his left arm and shoulder for his presentation. MRI of his cervical spine in December of 2020 showed severe stenosis of the spinal canal and right neural foramina in at C3-4, moderate spinal canal stenosis C4-5, moderate to severe right neural foraminal stenosis and severe left neural foraminal stenosis. On 02/14/2021, MRI thoracic spine showed incompletely assessed left apical mass, aggressive/destructive, measuring 15 mm in visualize films, apparent invasion left upper ribs and her pleura and or vertebral bodies, likely moderate to severe left-sided neural foraminal stenosis at the upper thoracic level T1-T4. 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 In 2021 he completed 7 cycles of carbo/Taxol with radiation concurrently. He started treatment with durvalumab on 06/26/2021., held due to hepatitis from treatment with negative workup otherwise, therapy was resumed in December 2021. In October [address]-guided cryo ablation of paravertebral soft tissue mass left T2 and T3. He had CT spine ablation, left paraspinal T through through T3 for cryoablation with intraoperative neural monitoring. In February of 2022 he had confirmed right shoulder metastases and had radiation. He ended up with recurrence, tumor board recommended starting chemotherapy and on 05/12/2023 started carbo, Alimta, durvalumab and B12/FA. His oncology note does go over other subsequent history. 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 He is known to have difficulty swallowing and has had evaluation. 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 He did have a normal TSH in July. Related Data Home Medications ?Medication ?Instructions ?Recorded ?Confirmed fluticasone furoate 27.5 2 spray intranasal BID 06/0608/09/24 mcg/actuation nasal spray,suspension (Flonase Sensimist) Previous Rx's ?Medication ?Instructions ?Recorded famotidine 20 mg tablet (Pepcid) 20 mg PO BID #180 tab s 12/09/23 gabapentin 100 mg capsule 100 mg PO HS #90 caps magnesium oxide 400 mg (241.3 mg 400 mg PO BID #100 ta bs 01/27/24 magnesium) tablet prochlorperazine maleate 5 mg 5 mg PO TID PRN nausea a nd 01/27/24 tablet (Compazine) vomiting #90 tabs levothyroxine 125 mcg tablet 125 mcg PO DAILY #90 tabs 03/21/24 vitamin B complex 1 tab PO DAILY #100 tabs Symbicort 80 mcg-4.5 mcg/actuation 2 puff inhalation B ID #30.6 grams 04/18/24 HFA aerosol inhaler (budesonide-formoterol) albuterol sulfate 90 mcg/actuation 2 inh inhalation Q4 H PRN shortness 02/03/25 aerosol inhaler (Ventolin HFA) of breath or wheezing # 8.5 grams apixaban 5 mg tablet (Eliquis) 5 mg PO BID #60 tabs pantoprazole 40 mg tablet,delayed 40 mg PO BID #60 tab s 06/29/24 release folic acid 1 mg tablet 1 mg PO DAILY #90 tabs 08/01 Allergies Allergy/AdvReac Type Severity Reaction Status Date / Time carboplatin Allergy Severe Anaphylaxis Verified 08/09/24 08:36 Review of Systems Status of ROS: Reports: 6 or more systems reviewed and unremarkable except as noted in History and below [facility] Medical History Anemia associated with chemotherapy ?D64.81 - Anemia due to antineoplastic chemotherapy (ICD-10) ?T45.1X5A - Adverse effect of antineoplastic and immunosuppressive drugs, initial encounter (ICD-10) Non-small cell cancer of left lung (2020) ?C34.92 - Malignant neoplasm of unspecified part of left bronchus or lung (ICD-10) Internal jugular vein thrombosis ?I82.C19 - Acute embolism and thrombosis of unspecified internal jugular vein (ICD-10) Chronic anticoagulation ?Z79.01 - [facility] (current) use of anticoagulants (ICD-10) Encounter for immunotherapy ?Z29.8 - Encounter for other specified prophylactic measures (ICD-10) Encounter for chemotherapy management ?Z51.11 - Encounter for antineoplastic chemotherapy (ICD-10) Chemotherapy induced neutropenia ?D70.1 - Agranulocytosis secondary to cancer chemotherapy (ICD-10) ?T45.1X5A - Adverse effect of antineoplastic and immunosuppressive drugs, initial encounter (ICD-10) Insomnia ?G47.00 - Insomnia, unspecified (ICD-10) PVD (peripheral vascular disease) ?I73.9 - Peripheral vascular disease, unspecified (ICD-10) Infusion reaction ?T80.90XA - Unspecified complication following infusion and therapeutic injection, initial encounter (ICD-10) 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 - Hypothyroidism due to medicaments and other exogenous substances (ICD-10) Dyspnea ?R06.00 - Dyspnea, unspecified (ICD-10) Bilateral leg cramps ?R25.2 - Cramp and spasm (ICD-10) Cervical spinal stenosis ?M48.02 - Spinal stenosis, cervical region (ICD-10) Central venous catheter in place ?Z78.9 - Other specified health status (ICD-10) Cancer associated pain ?G89.3 - Neoplasm related pain (acute) (chronic) (ICD-10) Emphysema/COPD ?J43.9 - Emphysema, unspecified (ICD-10) Dermatitis ?L30.9 - Dermatitis, unspecified (ICD-10) Colon polyp ?K63.5 - Polyp of colon (ICD-10) Tobacco use disorder ?F17.200 - Nicotine dependence, unspecified, uncomplicated (ICD-10) Surgical History S/P angioplasty with stent ?Z95.820 - Peripheral vascular angioplasty status with implants and grafts (ICD-10) S/P hernia repair ?Z98.890 - Other specified postprocedural states (ICD-10) ?Z87.19 - Personal history of other diseases of the digestive system (ICD-10) History of appendectomy ?Z90.49 - Acquired absence of other specified parts of digestive tract (ICD- 10) H/O colonoscopy ?Z98.890 - Other specified postprocedural states (ICD-10) Social History Narrative: Partnered to Renetta for many years, she would be medical decision maker if needed. Worked for [employer] for many years. Smoker (down from 2ppd to 5 cigarettes/day in February 2024). Rare social ETOH. Full Code but requests no long-term intubation. What is your current living situation?: I presently have a place to live Problems where you live: no known problems Problems where you live details: none In the past 12 months, utilities in danger of being shut off: no In past 12 months, lack of transportation kept you from medical appts, meetings, work, or getting things needed for daily living: no In the past 12 mos, have been you worried that your food would run out before you had money to buy more?: never true In the past 12 mos, the food you bought just didn't last and you didn't have money to buy more?: never true Highest level of school completed/degree received: Bachelor's degree Smoking Status: Current every day smoker What tobacco products do you use: cigarettes Smoking packs per day: 0.25 Smoking cigarettes per day: 5.0 Smoking quit date/years: <= 15 years ago Do you use any of these nicotine containing products: None Second hand tobacco smoke exposure: No How often do you have a drink containing alcohol: monthly or less Alcohol type: beer, wine and hard liquor How many standard drinks containing alcohol do you have on a typical day: 1 or 2 How often do you have six or more drinks on one occasion: Never AUDIT-C Alcohol total score: 1 Non-prescribed substance use: denies use Caffeine: Yes (coffee) How often does anyone, including family, friends and others, physically hurt you : never How often does anyone, including family, friends and others, insult or talk down to you: never How often does anyone, including family, friends and others, threaten you with harm: never How often does anyone, including family, friends and others, scream or curse at you: never service: No Exam Const: Vital Signs, click to edit/add: Vital Signs - 24 hr 08/28/24 15:55 08/28/24 16:30 08/28/24 17:29 Temperature 98.4 F Pulse Rate 62 Pulse Rate [Pulse Oximeter] 82 76 Respiratory Rate 18 16 Blood Pressure Blood Pressure [Ri ght Upper Arm] 118/65 Pulse Oximetry 97 95 95 Oxygen Delivery Me thod Room Air 08/28/24 17:30 08/28/24 17:31 08/28/24 17:45 Temperature Pulse Rate 65 62 62 Pulse Rate [Pulse Oximeter] Respiratory Rate 16 Blood Pressure 140/74 H Blood Pressure [Ri ght Upper Arm] Pulse Oximetry 95 98 96 Oxygen Delivery Me thod Room Air This 68-year-old male is alert, interactive, no apparent distress, lying in the bed in exam room 5. He looks frail and is slender but in no apparent distress. Speech is normal, able speak in complete sentences. Sclera clear come conjugate gaze, symmetrical facial function. Neck is supple come noted of his tension, no masses or adenopathy. His lungs actually are clear, good air entry, no wheeze or crackles. CV regular rate and rhythm, no murmur, normal S1-S2. Abdomen is soft, nontender, nondistended, no organomegaly, rebound or guarding. He has no lower extremity edema. No calf tenderness. Legs are very slender. Strength from hands up to shoulders are 5/5 and symmetric on his left side. Does feel light touch sensation but states the fingers on his left side maybe feel a bit differently. They have normal warmth, vascularity is the same. He has no significant palpable tenderness over the scapula, over the clavicle over the glenohumeral joint/shoulder. Documenting provider has reviewed patient's vital signs: yes Course Course ED Course: This patient has a very complex medical history. Did spend about a 1/2 hour going through his records, looking at prior imaging. Did order a head CT immediately given his confusion, increase left hand numbness tingling and potentially some weakness. He does have some known imaging that would support cervical radiculopathy changes. He has also had an abutting thoracic tumor along the paraspinal area. He had a left upper lobe tumor in the apex. With his worsening left arm symptoms, do feel oblige to look at a chest CT with IV contrast as well as reconstituting the thoracic spine. We cannot do MRIs here at this time. We will give him some IV fluids, check full labs, make sure he is not anemic and requiring a transfusion. Will make sure electrolytes and liver functions are stable. Unfortunately the with cancer, we have discussed that appetite can be problematic, I do not have an immediate or easy fix for that. Reevaluation(s) Time of Reevaluation #1: 17:15 Reevaluation #1: Did review with patient that his hemoglobin is at 8. He states that is typ ically adequate for him, usually is not transfused until lower. He does have a follow-up tomorrow, is post get a brain MRI tomorrow and then a PET scan on . Patient is not neutropenic. Time of Reevaluation #2: 18:21 Reevaluation #2: Patient does not want to wait for his CT thoracic and chest imaging. Unfortunately there was a stroke patient and a trauma patient that did get imaging before him. I do think he is stable to discharge to home but do feel he needs further imaging given his history. He does have some imaging plan for this week. If he is having increasing neurologic changes in the left arm, may need to have imaging moved up and other imaging ordered this next week. He does have a follow-up tomorrow, will have him keep that. Vital Signs Vital signs: Initial Vital Signs Temperature 98.4 F 08/28/24 15:55 Temperature Source Temporal Artery Scan 08/28/24 15:55 Pulse Rate 82 08/28/24 15:55 Pulse Rhythm Regular 08/28/24 15:55 Respiratory Rate 18 08/28/24 15:55 Blood Pressure 118/65 08/28/24 15:55 Blood Pressure Mean 82 08/28/24 15:55 Blood Pressure Position Supine 08/28/24 15:55 Pulse Oximetry 97 08/28/24 15:55 Oxygen Delivery Method Room Air 08/28/24 15:55 Vital Signs Temperature 98.4 F 08/28/24 15:55 Pulse Rate 82 08/28/24 15:55 Respiratory Rate 18 08/28/24 15:55 Blood Pressure 118/65 08/28/24 15:55 Pulse Oximetry 97 08/28/24 15:55 Oxygen Delivery Method Room Air 08/28/24 15:55 Temperature 98.4 F 08/28/24 15:55 Pulse Rate 62 08/28/24 17:45 Respiratory Rate 16 08/28/24 17:31 Blood Pressure 140/74 H 08/28/24 17:31 Pulse Oximetry 96 08/28/24 17:45 Oxygen Delivery Method Room Air 08/28/24 17:31 Medical Decision Making Lab Data Labs: Lab Results 08/28/24 08/28/24 Range/Units 16:40 17:22 WBC 4.09 L (4.50-11.00) K/uL RBC 2.74 L (4.30-5.90) m/uL Hgb 8.0 L (13.5-17.5) gm/dL Hct 25.8 L (37.0-53.0) % MCV 94 (80-100) fL MCH 29 (26-34) pg MCHC 31 L (32-36) gm/dL RDW Coeff of Jolie 22.8 H (11.5-15.5) % Plt Count 199 (140-440) K/uL Neut % (Auto) 73.8 H (42.0-72.0) % Lymph % (Auto) 14.9 L (20-44) % Hendry % (Auto) 4.2 (0.0-11.0) % Eos % (Auto) 3.4 (0.0-7.0) % Baso % (Auto) 2.0 (0.0-3.0) % Neut # (Auto) 3.00 (1.7-7.0) K/uL Lymph # (Auto) 0.60 L (0.90-2.90) K/uL Hendry # (Auto) 0.20 (0.00-0.90) K/UL Eos # (Auto) 0.10 (0.00-0.50) K/uL Baso # (Auto) 0.10 (0.00-0.30) K/uL Abs Immat Gran (auto) 0.10 (0.00-0.30) K/uL Imm/Tot Granulo (auto) 1.7 % Sodium 132 L (135-149) mmol/L Potassium 4.5 (3.6-5.1) mmol/L Chloride 100 (96-114) mmol/L Carbon Dioxide 25 (20-32) mmol/L Anion Gap 7 (7-15) mEq/L BUN 22 (7-30) mg/dL Creatinine 1.0 (0.5-1.5) mg/dL Estimated Creat Clear 64.38 Estimated GFR 81 ml/min Glucose 88 (60-115) mg/dL Lactate 1.0 (0.5-1.9) mmol/L Calcium 9.2 (8.4-10.6) mg/dL Magnesium 2.2 (1.5-2.6) mg/dL Total Bilirubin 0.5 (0.1-1.5) mg/dL Direct Bilirubin 0.1 (0.0-0.5) mg/dL AST 52 H (12-35) U/L ALT 42 (4-50) U/L Alkaline Phosphatase 97 (40-150) U/L Total Protein 6.0 (6.0-8.3) g/dL Albumin 3.6 (3.3-5.0) g/dL Urine Color Yellow (Yellow) Urine Appearance Clear (Clear) Urine pH 7.5 (5.0-8.5) Ur Specific [place] 1.015 (1.000-1.030) Urine Protein Trace A (Negative) Urine Glucose (UA) Negative (Negative) Urine Ketones Negative (Negative) Urine Blood Negative (Negative) Urine Nitrite Negative (Negative) Urine Bilirubin Negative (Negative) Urine Urobilinogen 0.2 (0.2-1.0) Ur Leukocyte Esterase Trace A (Negative) Urine RBC 0-2 (0-2) Urine WBC 0-2 (0-5) Ur Squamous Epith Cells None (None-Few) Urine Bacteria None (None) Imaging Data CT scan - head: Attestation: I have reviewed the pertinent imaging results. Radiologist's impression: Patient: BRENNA MENDEZ Facility:?[facility] Patient ID:?[id number] Site Patient ID:?[id number]. Site :?[id number] Study:?CT-Head w/o-08/28/2024 4:49:46 PM Ordering Physician:Benjamin Lee Final Report: INDICATION: Confusion, chemotherapy/lung CA COMPARISON: MRI brain on May 27, 2024 and prior studies TECHNIQUE: CT of the head without contrast. FINDINGS: Brain Parenchyma: Stable mild global cortical involutional changes. No acute infarct, acute intracranial hemorrhage, mass effect, or midline shift. Periventricular and supraventricular white matter hypodensity, suggestive of chronic microvascular ischemic changes. Stable tiny tuber cinereum lipoma. Ventricles: Stable mild ventricular enlargement, commensurate with the degree of cortical involutional changes and sulcal prominence. Extra-axial Spaces: No abnormal fluid collection. Paranasal sinuses: No significant mucosal thickening. Orbits: Unremarkable Mastoid Sinuses: Small right mastoid effusion, unchanged. Cranium: No acute fracture Soft tissues: Unremarkable IMPRESSION: No CT evidence of an acute intracranial process. Please note that all CT scans at this facility use dose modulation, iterative reconstruction, and/or weight-based dosing when appropriate to reduce radiation dose to as low as reasonably achievable. Dictated by Keith Bower MD @ 08/28/2024 5:22:29 PM (Electronic Signature) ECG Data Attestation: I personally reviewed and interpreted this ECG as follows: (Normal sinus rhythm, 66 beats per minute. No ischemia or infarct noted.) Prior ECG tracings: available for review Discharge Plan Discharge Clinical Impression: Arm paresthesia, left, Numbness and tingling of both feet, Weakness, Non-small cell cancer of left lung Patient Disposition: Home, Self-Care Condition: Stable Instructions: Paresthesia (ED), Weakness (ED) Additional Instructions: Please keep your follow-up appointment tomorrow. I do think the numbness and tingling in your feet could be from some peripheral neuropathy which can happen from chemotherapy. I am unclear as to the symptoms in your left arm, this could be from nerve impingement, could be from the cancer process. At this time your stable, do think you can follow-up tomorrow and see if they want further imaging. Try to eat and drink as much as you are able to, talk to the provider tomorrow if they have any other recommendations for appetite. Your sodium was minimally low, AST liver enzyme was minimally elevated, hemoglobin was stable at 8. See if they want any of these labs rechecked this week. Activity Level: Activity as Tolerated Prescriptions: No Action famotidine [Pepcid] 20 mg tablet 20 mg PO BID Qty: 180 3RF budesonide-formoterol [Symbicort] 80-4.5 mcg/actuation HFA aerosol inhaler 2 puff inhalation BID Qty: 30.6 1RF albuterol sulfate [Ventolin HFA] 90 mcg/actuation HFA aerosol inhaler 2 inh inhalation Q4H PRN (Reason: shortness of breath or wheezing) Qty: 8.5 0RF Eliquis 5 mg tablet 5 mg PO BID Qty: 60 1RF Flonase Sensimist 27.5 mcg/actuation spray,suspension 2 spray intranasal BID Rx Instructions: into each nostril folic acid 1 mg tablet 1 mg PO DAILY Qty: 90 3RF prochlorperazine maleate [Compazine] 5 mg tablet 5 mg PO TID PRN (Reason: nausea and vomiting) Qty: 90 0RF gabapentin 100 mg capsule 100 mg PO HS Qty: 90 3RF magnesium oxide 400 mg (241.3 mg magnesium) tablet 400 mg PO BID Qty: 100 3RF levothyroxine 125 mcg tablet 125 mcg PO DAILY Qty: 90 3RF vitamin B complex Tablet 1 tab PO DAILY Qty: 100 1RF pantoprazole 40 mg tablet,delayed release (DR/EC) 40 mg PO BID Qty: 60 1RF Follow Up/Referrals: Mikal Gunter MD [Primary Care Provider, Family Practice] Stand Alone Forms: [employer] Info Instructions
[2024-08-28] MEDS: 0.9 % SODIUM CHLORIDE 1000 ml 1,000 ML 500 ML IV (16:15)
--- NOTE | 2024-08-28 16:17 | CRLHL7_ITS ---
For Patients: As a result of the Cures Act, medical imaging exams and procedure reports are released immediately into your electronic medical record. You may view this report before your referring provider. If you have questions, please contact your health care provider. INDICATION: Confusion, chemotherapy/lung CA COMPARISON: MRI brain on May 27, 2024 and prior studies TECHNIQUE: CT of the head without contrast. FINDINGS: Brain Parenchyma: Stable mild global cortical involutional changes. No acute infarct, acute intracranial hemorrhage, mass effect, or midline shift. Periventricular and supraventricular white matter hypodensity, suggestive of chronic microvascular ischemic changes. Stable tiny tuber cinereum lipoma. Ventricles: Stable mild ventricular enlargement, commensurate with the degree of cortical involutional changes and sulcal prominence. Extra-axial Spaces: No abnormal fluid collection. Paranasal sinuses: No significant mucosal thickening. Orbits: Unremarkable Mastoid Sinuses: Small right mastoid effusion, unchanged. Cranium: No acute fracture Soft tissues: Unremarkable IMPRESSION: No CT evidence of an acute intracranial process. Please note that all CT scans at this facility use dose modulation, iterative reconstruction, and/or weight-based dosing when appropriate to reduce radiation dose to as low as reasonably achievable. Dictated by Keith Bower MD @ 08/28/2024 5:22:29 PM (Electronically Signed)
--- OUTSIDE RECORDS SUMMARY | 2024-08-28 16:28 | XMS_ITS | Clinical Summary ---
Author Organization [employer] [facility] Address [address] [place] [id number] Care Team Providers Care Glass Curvature Gauger Name Role Phone Nedra Fontana RN, BSN, OCN Unavailable + [phone] Mikal Gunter MD Primary Care Provider [phone] Allergies Active Allergy Reactions Criticality Noted Date Comments Carboplatin Anaphylaxis,Dizzines s,Dyspnea,Flushing ,Rash,Shortness Of Breath High 10/27/2023 Medications Magnesium 200 mg tab Take 400 mg by mouth once daily. Active Symbicort 80-4.5 mcg/actuation (80-4.5 mcg each actuation) inhaler INHALE 2 PUFFS INTO THE LUNGS TWICE A DAY 07/25/2021 Active durvalumab 50 mg/mL soln Inject intravenous. 0 09/10/2021 Active cyclobenzaprine (FLEXERIL) 10 mg tabletIndicatio ns:Left arm pain Take 1 Tablet (10 mg) by mouth 3 times daily if needed for Muscle Spasm. 90 Tablet 3 09/10/2021 Active gabapentin (NEURONTIN) 100 mg capsuleIndicati ons:Upper back pain on left side,Radicular pain in left arm Take 1-2 Capsules (100-200 mg) by mouth at bedtime. 180 Capsule 2 09/10/2021 Active Vitamins B Complex tablet Take 1 Tablet by mouth once daily. 12/22/2022 Active famotidine (PEPCID) 20 mg tablet Take 20 mg by mouth two times daily. 09/22/2023 Active folic acid 1 mg tablet Take 1 mg by mouth once daily. 07/25/2023 Active Eliquis 5 mg tablet 12/11/2023 Active pantoprazole (PROTONIX) 40 mg delayed-release tablet Take 40 mg by mouth two times daily before meals. 02/18/2024 Active levothyroxine (SYNTHROID) 125 mcg tablet Take 1 Tablet by mouth once daily. 12/17/2023 Active fluticasone (50 mcg per actuation) nasal solution (FLONASE) Inhale 1 Sadler into affected nostril(s) once daily. Active albuterol-budes onide 90-80 mcg/actuation HFAA Inhale by mouth. 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 04/21/2023 Pain 04/21/2023 Primary hypertension 06/26/2022 Major depressive disorder, recurrent, unspecifie d 04/16/2021 Malignant neoplasm of upper lobe, left bronchus or lung 04/16/2021 Alcohol dependence 04/16/2021 Adenomatous polyp of colon 09/06/2013 Overview (12/15/2023): Colonoscopy 08/2013 large polyp repeat in 3 years Colonoscopy 11/2020 normal, repeat in 5 years Colonoscopy 08/2013 large polyp repeat in 3 years Colonoscopy 11/2020 normal, repeat in 5 years Dermatitis 05/15/2009 Pulmonary emphysema 07/08/2008 Overview (12/15/2023): Blebs noted on CT in both upper lungs 06/[address] in both upper lungs 06/22 Tobacco use disorder 07/09/2005 Tobacco dependence syndrome 07/09/2005 Resolved Problems Problem Noted Date Diagnosed Date Resolved Date Aplastic anemia 10/02/2023 12/15/2023 Alcohol dependence, daily use 04/16/2021 12/15/2023 Encounters Date Type Department Care Team Description 08/28/2024 3:05 PM CDT Office Visit [facility] [address] [place] [address] Arrived 08/28/2024 Travel 07/12/2024 2:10 PM CDT Office Visit [facility] [address] [place] [address] Mikal Gunter MD Fall (Fell yesterday, legs just gave out and his Oncologist wanted him to be seen today); Ear Problem (Still has swishing in right ear) 07/12/2024 Travel 07/11/2024 Orders Only [facility] Scanner 1 scan: (1-Ord) [facility], MULTIPLE LABS, 07/11/2024 07/11/2024 Orders Only [facility] Scanner 1 scan: (1-Ord) [facility], MULTIPLE LABS, 07/11/2024 07/06/2024 Orders Only [facility] Scanner 1 scan: (1-Ord) [facility], FL BARIUM SWALLOW MODIFIED, 07/06/2024 06/07/2024 Orders Only [facility] Scanner 1 scan: (1-Ord) [facility], CHEST 2V, 06/07/2024 from Last 3 Months Immunizations Immunization Administration Dates Next Due COVID-19 VACCINE SPIKEVAX (M ODERNA 50MCG/0.5ML) 12YO+ PFS 12/15/2023,01/26/2023 COVID-19 vaccine (Moderna 10 0mcg/0.5mL) PF, MDV 02/10/2021,06/20/2020,05/18/2020 COVID-19 vaccine (Moderna 50 mcg/0.5mL) 12YO+ BIVALENT PF, MDV 12/05/2021 COVID-19 vaccine (Moderna Claudio maite 50mcg/0.25mL) PF, MDV 08/19/2021 Influenza Virus, Unspecified 02/10/2021 Influenza, High-dose Quadriv alent Inactivated 12/05/2021,01/04/2020 Influenza, IIV4 02/09/2017 Influenza, Inactivated AIIV4 (Age 65+ Years) Preserv Free 11/23/2022 Influenza, Inactivated IIV3 (Age 65+ Years) Preserv Free 12/15/2023 Pneumococcal Conj 20-valent (Prevnar 20) 022 Td (Age >=7 Years) 04/24/1999 Tdap 02/23/2024,06/09/2013 Zoster (Shingrix-RZV, recombinant) 02/23/2024, Family History Medical History Relation Name Comments Depression Father Diabetes Father Hypertension Father Stroke Mother Relation Name Status Comments Father Alive Maternal Grandfather Maternal Grandmother Mother Paternal Grandfather Paternal Grandmother Social History Tobacco Use Types Packs/Day Years Used Date Smoking Tobacco: Every Day Cigarettes 0.5 51.5 Started: 03/16/1973 Smokeless Tobacco: Never Tobacco Cessation:Ready to Q uit: No; Counseling Given: No Comments:4 cigs per day Alcohol Use Standard Drinks/Week Comments Not Currently 0 (1 standard drink = 0.6 oz pur e alcohol) 3-4 per day PHQ-2 Answer Date Recorded PHQ-2 TOTAL SCORE 1 12/15/2023 Social Connections Answer Date Recorded Do you often feel lonely or isolated from those around you? 0 02/24/2024 Financial Resource Strain Answer Date R ecorded Difficulty of Paying Living Expenses 3 02/24/2024 Difficulty of Paying Living Expenses Not on file 02/24/2024 Food Insecurity Answer Date Recorded Do you worry your food will run out before you are able to buy more? 1 02/24/2024 Transportation Needs Answer Date Record ed Does lack of transportation keep you from medica l appointments? 1 02/24/2024 Does lack of transportation keep you from work, meetings or getting things that you need? 1 02/24/2024 Housing Stability Answer Date Recorded What is your housing situation today? 1 02/24/2024 Utilities Answer Date Recorded Do you have trouble paying f or utilities (for example, heat, electricity, water, phone)? 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 Gender Identity Not on file Sexual Orientation Not on file Obstetrics History Last Filed Vital Signs Vital Sign Reading Time Taken Comments Blood Pressure 120/82 07/12/2024 2:20 PM CDT Pulse 89 07/12/2024 2:20 PM CDT Temperature 36.1 C (97 F) 03/11/2021 7:00 AM ARC WELDER APPRENTICE Respiratory Rate 20 04/05/2024 8:25 AM ARC WELDER APPRENTICE Oxygen Saturation 99% 07/12/2024 2:20 PM CDT Inhaled Oxygen Concentration - - Weight 70.3 kg (155 lb) 07/12/2024 2:20 PM CDT Height 183 cm (6' 0.05) 12/15/2023 8:50 AM CDT Body Mass Index 20.99 12/15/2023 8:50 AM CDT Plan of Treatment Health Maintenance Due Date Last Done Comments RSV vaccine for adults or (1 - Risk 60-74 years 1-dose series) [address] (for lung CA) age 50-80 02/26/2022 02/26/2021, 11/10/2020, 07/07/2008 COVID-19 vaccine series (8 - Moderna risk 2023- season) 2024 12/15/2023, 01/26/2023, 12/05/2021, Additional history exists BMI (ht and wt on same day) for age 18+ 12/14/2024 12/15/2023, 01/20/2023, 09/10/2021, Additional history exists Depression screening for age 12+ 12/14/2024 12/15/2023, 09/10/2021, 10/02/2020, Additional history exists Medicare Wellness for age 65+ 12/15/2024 12/15/2023, 09/10/2021, 09/28/2020 Lipids for age 45-75 09/28/2025 09/28/2020, 10/06/2019, 02/09/2017, Additional history exists Colonoscopy through age 75 11/09/202611/09, 11/28/2020, 11/28/2020, Additional history exists Tetanus booster 02/22/2034 02/23/2024, 05/15, 04/24/1999 Hepatitis C screening for age 18-79 Completed 06/09/2013 Pneumococcal series for age 50+ Completed 09/10/2021 AAA screening age 65-74 Completed 10/31/19 22 ([facility] 11/10/2020 Influenza Vaccine Completed 12/15/2023, , 02/10/2021, Additional history exists Tdap Completed 02/23/2024, 06/09/2013 Zoster (shingles) series for age 50+ Completed 02/23/2024, 01/26/2023 Hepatitis B series for 19+ Aged Out N o longer eligible based on patient's age to complete this topic Procedures Procedure Name Priority Date/Time Associated Diagnosis Comments SCAN-LABORATORY REPORT 12:00 AM CDT SCAN-LABORATORY REPORT 12:00 AM CDT SCAN-RADIOLOGY REPORT 07/06/2024 12:00 AM CDT AMB CONSULT TO GASTROENTEROLOGY Routine 06/09/2024 7:16 PM CDT Angiodysplasia of gastrointestinal tract Anemia, unspecified type SCAN-RADIOLOGY REPORT 06/07/2024 12:00 AM CDT SCAN-COLONOSCOPY 11/10/2023 12:[address] CHEST W Routine 02/26/2021 3:27 PM ARC WELDER APPRENTICE Lung mass CT CHEST ABDOMEN PELVIS W VINCE 11/10/2020 9:53 AM CDT Radicular pain in left arm Chronic left-sided thoracic back pain Elevated PSA LIPID PANEL W REFLEX MEASURED LDL Routine 09/28/2020 11:12 AM CDT Lipid screening ANTI HCV Routine 06/09/2013 9:41 AM CDT Need for hepatitis C screening test from Last 3 Months or Most Recently Relevant to Health Maintenance Results * SCAN-LABORATORY REPORT (07/11/2024 12:00 AM CDT) Only the most recent of2 resultswithin the time period is included. us Scanner OTHER Final Result * SCAN-RADIOLOGY REPORT (07/06/2024 12:00 AM CDT) Only the most recent of2 resultswithin the time period is included. Anatomical Region Laterality Modality Other us Scanner OTHER Final Result * SCAN-COLONOSCOPY (11/10/2023 12:00 AM CDT) us Scanner OTHER Final Result * CT CHEST W (02/26/2021 3:27 PM ARC WELDER APPRENTICE) Anatomical Region Laterality Modality CHEST, THORAX, HEART Other 02/26/2021 3:27 PM ARC WELDER APPRENTICE Narrative 02/26/2021 3:40 PM ARC WELDER APPRENTICE EXAM DATE: 02/26/2021 EXAM: CT CHEST WITH CONTRAST LOCATION: [facility] DATE/TIME: 02/26/2021 3:30 PM INDICATION: Lung mass COMPARISON: CT chest abdomen pelvis 11/10/2020, PET/CT 02/26/2021 reviewed. TECHNIQUE: CT chest with IV contrast. Multiplanar reformats were obtained. Dose reduction techniques were used. CONTRAST: 100ml of [id number] was administered from a single use vial with 0ml discarded. MWR I-STAT Cr=0.7mg/dl, yRMK=071. [id number] Lot [id number] Ex:06/2023 FINDINGS: LUNGS AND PLEURA: Irregular mass in the posteromedial left upper lobe apex with direct chest wall invasion has increased in size since 11/02/2020 estimated at 3.3 x 6.6 x 5.2 cm (previously 2.4 x 6.0 x 4.5 cm at similar level measurements). Increased destruction of the underlying left posteromedial third rib. Mass extends through the intercostal space into the deep left upper chest musculature. Additional suspected extension along the adjacent neural foramen. Background severe paraseptal emphysema with large biapical bullae. Few areas of curvilinear and reticular scarring or atelectasis in the mid and lower lungs. No pleural effusion or pneumothorax. MEDIASTINUM/AXILLAE: No adenopathy. No pericardial effusion. Calcified mediastinal and right hilar lymph nodes. CORONARY ARTERY CALCIFICATION: Mild. UPPER ABDOMEN: Small benign liver cyst. MUSCULOSKELETAL: Destructive changes of the posteromedial left third rib as above. No additional suspicious osseous lesion. IMPRESSION: Enlarging lung mass posteromedial left upper lobe apex with direct chest wall invasion and erosion of the underlying left third rib. Findings are suspicious for malignancy, likely primary lung cancer. This is amenable to percutaneous CT-guided biopsy. Please see separate PET/CT report from today for more complete staging findings. Procedure Note Keith Bowens MD - 02/26/2021 EXAM DATE: 02/26/2021 EXAM: CT CHEST WITH CONTRAST LOCATION: [facility] DATE/TIME: 02/26/2021 3:30 PM INDICATION: Lung mass COMPARISON: CT chest abdomen pelvis 11/10/2020, PET/CT 02/26/2021eviewed. TECHNIQUE: CT chest with IV contrast. Multiplanar reformats were obtained.Dose reduction techniques were used. CONTRAST: 100ml of [id number] was administered from a single use vial [id number] discarded. MWR I-STAT Cr=0.7mg/dl, uMTI=328. [id number] Lot [id number]:06/2023 FINDINGS: LUNGS AND PLEURA: Irregular mass in the posteromedial left upper lobe apexwith direct chest wall invasion has increased in size since 1estimated at 3.3 x 6.6 x 5.2 cm (previously 2.4 x 6.0 x 4.5 cm at similar levelmeasurements). Increased destruction of the underlying left posteromedial third rib. Massextends through the intercostal space into the deep left upper chest musculature. Additional suspected extension along the adjacent neural foramen.Background severe paraseptal emphysema with large biapical bullae. Few areas ofcurvilinear and reticular scarring or atelectasis in the mid and lower lungs. Nopleural effusion or pneumothorax. MEDIASTINUM/AXILLAE: No adenopathy. No pericardial effusion. Calcifiedmediastinal and right hilar lymph nodes. CORONARY ARTERY CALCIFICATION: Mild. UPPER ABDOMEN: Small benign liver cyst. MUSCULOSKELETAL: Destructive changes of the posteromedial left third allyson above. No additional suspicious osseous lesion. IMPRESSION: Enlarging lung mass posteromedial left upper lobe apex with direct chestwall invasion and erosion of the underlying left third rib. Findings aresuspicious for malignancy, likely primary lung cancer. This is amenable to percutaneous CT-guided biopsy. Please see separate PET/CT report from today for morecomplete staging findings. us Tanika Sinclair MD CT Final Result * CT CHEST ABDOMEN PELVIS W (11/10/2020 9:53 AM CDT) Anatomical Region Laterality Modality Abdomen, Pelvis, AORTA, LIVER, SPLEEN Computed Tomography 11/10/2020 9:53 AM CDT Narrative 11/10/2020 10:16 AM CDT For Patients: As a result of the Cures Act, medical imaging exams and procedure reports are released immediately into your electronic medical record. You may view this report before your referring provider. If you have questions, please contact your health care provider. EXAM: CT CHEST ABDOMEN PELVIS W LOCATION: [facility] DATE/TIME: 11/10/2020 9:53 AM INDICATION: Radicular Pain In Left Arm. Chronic Left-sided Thoracic Back Pain Chronic Left-sided Thoracic Back Pain. Elevated Psa Thoracic pain, worse at night. Elevated PSA. Smoking Hx. COMPARISON: None. TECHNIQUE: CT scan of the chest, abdomen, and pelvis was performed following injection of IV contrast. Multiplanar reformats were obtained. Dose reduction techniques were used. CONTRAST: Omnipaque 350 100ml FINDINGS: LUNGS AND PLEURA: Emphysema with advanced destructive changes and large apical bulla. Moderate scarring in both lungs. Few benign calcified granulomas in the right lung. MEDIASTINUM/AXILLAE: Benign calcified lymph nodes in the right hilum and mediastinum. No enlarged nodes. Mild calcified plaque in the thoracic aorta. Heart size is upper range of normal. CORONARY ARTERY CALCIFICATION: Mild. HEPATOBILIARY: Small benign cyst in the left hepatic lobe. PANCREAS: Normal. SPLEEN: Normal. ADRENAL GLANDS: Normal. KIDNEYS/BLADDER: Normal. BOWEL: Normal. LYMPH NODES: Normal. VASCULATURE: Diffuse atheromatous plaque in the abdominal aorta. 3.1 cm infrarenal abdominal aortic aneurysm. PELVIC ORGANS: Moderate enlargement of the prostate gland. MUSCULOSKELETAL: Previous right inguinal hernia repair. Degenerative hypertrophic changes in the thoracic spine. Facet arthritis in the lumbar spine. No suspicious skeletal sclerotic lesions are identified. IMPRESSION: 1. No evidence of metastatic disease in the chest, abdomen, or pelvis. 2. Moderate enlargement of the prostate gland. 3. Emphysema with advanced destructive changes and prominent apical bulla. Procedure Note Jersey Khan MD - 11/10/2020 For Patients: As a result of the Cures Act, medical imagingexams and procedure reports are released immediately into your electronicmedical record. You may view this report before your referring provider.If you have questions, please contact your health care provider. EXAM: CT CHEST ABDOMEN PELVIS W LOCATION: [facility] DATE/TIME: 11/10/2020 9:53 AM INDICATION: Radicular Pain In Left Arm. Chronic Left-sided Thoracic BackPain Chronic Left-sided Thoracic Back Pain. Elevated Psa Thoracic pain, worse at night. Elevated PSA. Smoking Hx. COMPARISON: None. TECHNIQUE: CT scan of the chest, abdomen, and pelvis was performedfollowing injection of IV contrast. Multiplanar reformats were obtained.Dose reduction techniques were used. CONTRAST: Omnipaque 350 100ml FINDINGS: LUNGS AND PLEURA: Emphysema with advanced destructive changes and largeapical bulla. Moderate scarring in both lungs. Few benign calcifiedgranulomas in the right lung. MEDIASTINUM/AXILLAE: Benign calcified lymph nodes in the right hilum andmediastinum. No enlarged nodes. Mild calcified plaque in the thoracicaorta. Heart size is upper range of normal. CORONARY ARTERY CALCIFICATION: Mild. HEPATOBILIARY: Small benign cyst in the left hepatic lobe. PANCREAS: Normal. SPLEEN: Normal. ADRENAL GLANDS: Normal. KIDNEYS/BLADDER: Normal. BOWEL: Normal. LYMPH NODES: Normal. VASCULATURE: Diffuse atheromatous plaque in the abdominal aorta. 3.1 cminfrarenal abdominal aortic aneurysm. PELVIC ORGANS: Moderate enlargement of the prostate gland. MUSCULOSKELETAL: Previous right inguinal hernia repair. Degenerativehypertrophic changes in the thoracic spine. Facet arthritis in the lumbarspine. No suspicious skeletal sclerotic lesions are identified. IMPRESSION: 1. No evidence of metastatic disease in the chest, abdomen, or pelvis. 2. Moderate enlargement of the prostate gland. 3. Emphysema with advanced destructive changes and prominent apicalbulla. us Martina Cid DIRECTOR SOCIAL WELFARE CT Final Res ult * LIPID PANEL W REFLEX MEASURED LDL (09/28/2020 11:12 AM CDT) CHOLESTEROL,TOTAL 196 100 - 199 mg/dL 09/28/2020 5:00 PM CDT [facility] TRIGLYCERIDES 69 <150 mg/dL 09/28/2020 5:00 PM CDT [facility] HDL CHOLESTEROL 59 >40 mg/dL 5:00 PM CDT [facility] NON-HDL CHOLESTEROL 137 <145 mg/dl 09/28/2020 5:00 PM CDT [facility] CHOL/HDL RATIO 3.32 <4.50 09/28/2020 5:00 PM CDT [facility] LDL CHOLESTEROL 123 <=130 mg/dL 09/28/2020 5:00 PM CDT [facility] VLDL CHOLESTEROL 14 mg/dL 09/29/19 5:00 PM CDT [facility] PROVIDER ORDERED STATUS RANDOM 09/28/2020 5:00 PM CDT [facility] Blood BLOOD SPECIMEN / Unknown Venipuncture / Unknown 09/28/2020 11:12 AM CDT 09/28/2020 11:12 AM CDT us Martina Cid DIRECTOR SOCIAL WELFARE CHEMISTRY Final Res ult [facility] [address] [place] [address], [place] * ANTI HCV [13124.2] (06/09/2013 9:41 AM CDT) ANTI HCV Non-reacti ve [facility] Blood specimen (specimen) BLOOD SPECIMEN / Unknown 06/09/2013 9:41 AM CDT 06/09/2013 9:34 AM CDT Aye Green MD SEND OUTS Final Result [facility] INTERNAL ZIP [id number] [place] [address] from Last 3 Months or Most Recently Relevant to Health Maintenance Insurance MEDICARE PART A HB ONLY [facility] Care Teams Glass Curvature Gauger Relationship Specialty [place] [address] [place] [address] PCP - General Family Practice 12/10/23 Nedra Fontana, RN, BSN, OCN [address] [place] [address] Nurse Navigator - Oncology Registered Nurse 02/27/21
[2024-08-28 16:46] LABS: Eosinophils Percent Auto 3.4 % (0.0-7.0); Hematocrit 25.8 % (37.0-53.0); Immature Granulocytes Pct Auto 1.7 %; Lymphocytes Percent Auto 14.9 % (20-44); Mean Corpuscular HGB Conc 31 gm/dL (32-36); Mean Corpuscular Hemoglobin 29 pg (26-34); Mean Corpuscular Volume 94 fL (80-100); Monocytes Percent Auto 4.2 % (0.0-11.0); Neutrophils Percent Auto 73.8 % (42.0-72.0); Platelet Count* 199 K/uL (140-440); RDW Coefficient of Variation % 22.8 % (11.5-15.5); Red Blood Count 2.74 m/uL (4.30-5.90); White Blood Count* 4.09 K/uL (4.50-11.00)
[2024-08-28 16:53] LABS: Slide Review Reflex No
[2024-08-28 17:08] LABS: Albumin* 3.6 g/dL (3.3-5.0); Chloride* 100 mmol/L (96-114); Potassium* 4.5 mmol/L (3.6-5.1); Sodium* 132 mmol/L (135-149)
[2024-08-28 17:11] LABS: Alanine Aminotransferase* 42 U/L (4-50); Alkaline Phosphatase* 97 U/L (40-150); Anion Gap 7 mEq/L (7-15); Aspartate Amino Transferase* 52 U/L (12-35); Bilirubin Direct* 0.1 mg/dL (0.0-0.5); Bilirubin Total* 0.5 mg/dL (0.1-1.5); Blood Urea Nitrogen* 22 mg/dL (7-30); Calcium* 9.2 mg/dL (8.4-10.6); Carbon Dioxide* 25 mmol/L (20-32); Est. Creatinine Clearance* 64.38; Estimated Glomerular Filt Rate 81 ml/min; Glucose* 88 mg/dL (60-115)
[2024-08-28 17:12] LABS: Magnesium* 2.2 mg/dL (1.5-2.6)
[2024-08-28 17:27] LABS: Appearance Urine Clear (Clear); Bilirubin Urine Negative (Negative); Blood Urine Negative (Negative); Color Urine Yellow (Yellow); Glucose Urine Negative (Negative); Ketones Urine Negative (Negative); Leukocyte Esterase Urine Trace (Negative); Nitrite Urine Negative (Negative); Protein Urine Trace (Negative); Specific Gravity Urine 1.015 (1.000-1.030); Urobilinogen Urine 0.2 (0.2-1.0); pH Urine 7.5 (5.0-8.5)
[2024-08-28 17:40] LABS: RBC Urine 0-2 (0-2); WBC Urine 0-2 (0-5)
[2024-08-28] MEDS: HEPARIN 500 UNIT/5 ML SYRINGE IVF (18:26)
== END 2024-08-28 18:15 | disposition home or self-care (01) ==
PROVIDERS: Emergency Provider Family Medicine; PCP Family Medicine
DX: R20.2 Paresthesia of skin (principal); R20.0 Anesthesia of skin; R53.1 Weakness; C34.90 Malignant neoplasm of unspecified part of unspecified bronchus or lung
CPT/HCPCS: 36415; 70450; 80053; 81001; 82248; 83605; 83735; 85025; 87086; 93005; 96360; 96361; 99284; 99285; J1642; J7030

== ENCOUNTER 2024-08-29 09:42 | Outpatient (CLI) | payer MEDICARE, SELFPAY ==
--- NOTE | 2024-08-29 10:15 | CRLHL7_ITS ---
For Patients: As a result of the Century Cures Act, medical imaging exams and procedure reports are released immediately into your electronic medical record. You may view this report before your referring provider. If you have questions, please contact your health care provider. Indication: Follow-up metastatic lung cancer Technique: Multiplanar, multisequence MRI of the brain obtained without and with contrast. A total of MRI brain 05/27/2024 mL of Clariscan IV contrast was administered. Comparison: MRI brain 05/27/2024 Findings: The ventricles and cortical sulci appear stable in configuration. No midline shift or mass effect. No acute intracranial hemorrhage or abnormal extra-axial fluid collection. No evidence of acute/subacute ischemia. Similar scattered foci of FLAIR hyperintensity throughout the cerebral white matter and central nancy, typical of chronic microangiopathy. No abnormal enhancement identified. Redemonstrated incidental tiny suprasellar lipoma in the region of the tuber cinereum. Unremarkable sella and pituitary gland. Preserved major intracranial arterial flow voids. Scattered paranasal sinus disease with right greater than left mastoid effusions. Unremarkable orbits. Impression: 1. No evidence of acute intracranial abnormality or intracranial metastases. 2. Similar mild generalized cerebral volume loss and mild-moderate chronic microangiopathy changes. 3. Stable incidental tiny suprasellar lipoma. 4. Paranasal sinus mucosal inflammatory changes with right greater than left mastoid effusions. Dictated by Claudia Samuels MD @ 08/29/2024 1:27:36 PM (Electronically Signed)
== END 2024-08-29 09:43 | disposition home or self-care (01) ==
LOC: MRI 09:44
PROVIDERS: PCP Family Medicine; Visit Provider Internal Medicine Hematology & Oncology
DX: C34.92 Malignant neoplasm of unspecified part of left bronchus or lung (principal)
CPT/HCPCS: 70553; A9575

== ENCOUNTER 2024-09-01 14:05 | Outpatient (CLI) | payer MEDICARE, SELFPAY ==
--- OUTSIDE RECORDS SUMMARY | 2024-09-01 03:46 | XMS_ITS | Continuity of Care Document ---
Author Organization [facility] Address [address] [address] [place] [address] Phone Care Team Providers Care Rotary Slicing Machine Operator Name Role Phone Samson Holden MD Unavailable Unavailabl e Allergies, Adverse Reactions, Alerts Substance Reaction Status [...] Procedures Procedure Date cancelled appt Offic/outpt E&m Estab Mod-hi 2 25 Sm Intest Endo; W/ablat Tumor Offic/outpt E&m New Mod-hi Advance Directives Directive Yes / No Effective Date File Name No Information Encounters Encounter Description Practice Location Reason(s) For Visit Diagnoses Date Provider Providers Copied on Encounter [facility], [address] [address], [place], [place], [address], [place] tel:[phone] [facility] No Information 5 Desean Davies. [address] [facility], [facility] [address], [place], [place], [address] , [place]. tel:[phone] [facility], [address] [address], [place], [place], [address], [place] tel:[phone] [facility] GI Symptoms or Concerns (chief complaint) AVM (arteriovenous malformation) of small bowel, acquired 5 Tommy Mcmahon. [address] [facility], [facility] [address], [place], [place], [address] , [place]. tel:[phone] Referring Provider: Referral Self, USE FOR SELF REFERRALS. Offic/outpt E&m Estab Mod-hi 2 [facility], [address] [address], [place], [place], [address], [place] tel:[phone] [facility] GI Symptoms or Concerns (chief complaint) Chronic iron deficiency anemiaAVM (arteriovenous malformation) of small bowel, acquired 5 Bill Lorenzo [address] [facility], [facility] [address], [place], [place], [address] , [place]. tel:[phone] Referring Provider: Referral Self, USE FOR SELF REFERRALS. [facility], [address] [address], [place], [place], [address], [place] tel:[phone] [facility] No Information 5 Bill Lorenzo [address] [facility], [facility] [address], [place], [place], [address] , [place]. [phone] Referring Provider: Constance Khan MD, [address] [facility] [address], [place], [address]. [phone] [facility], [address] [address], [place], [place], [address], [place] [phone] [facility] Chronic iron deficiency anemiaMelena 5 Primo Pedraza. [address] [facility], [facility] [address], [place], [place], [address] , [place]. [phone] Offic/outpt E&m New Mod-hi [facility], [address] [address], [place], [place], [address], [place] [phone] [facility] GI Symptoms or Concerns (chief complaint) MelenaChronic constipation 5 Primo Pedraza. [address] [facility], [facility] [address], [place], [place], [address] , [place]. tel:[phone] Referring Provider: Olivia Roger DO, [address] [place] [address], [address]. tel:[phone] [facility], [address] [address], [place], [place], [address], [place] [phone] [facility] No Information 5 Desean Davies. [facility] [address], [place], [address] , [place]. [phone] Family History Family Member Type Diagnosis Age [...] Pneumococcal conjugate vacci ne 20-valent (PCV20), polysaccharide ORT524 conjugate, adjuvant, preservative free administered Note: MIIC [...] History Type Description Quantity Date Captured Comments Alcohol Use Details Unknown Caffeine Use Details Unknown Tobacco Use Status Smoking Status No Information Sex Male Chief Complaint And Reason For Visit No [...] February 2024 he had an EGD and [place] that also showed AVM small bowel. A [...] Patient was seen at anemia/GI bleed at [facility] 02/15 to 02/18/2024 (taking aspirin and [...]
--- NOTE | 2024-09-01 14:30 | CRLHL7_ITS ---
For Patients: As a result of the Century Cures Act, medical imaging exams and procedure reports are released immediately into your electronic medical record. You may view this report before your referring provider. If you have questions, please contact your health care provider. Indication: Malignant neoplasm of lung, upper lobe or bronchus, left, subsequent scan Technique: Patient was injected in the right chest MediPort with 13.86 mCi FDG intravenously, with PET-CT imaging performed from the skull base to mid thighs [address] images were obtained for attenuation correction and localization, and do not replace a diagnostic quality examination. Blood glucose: 111 mg/dL. Comparison: Multiple examinations, most recently PET-CT performed 05/23/2024 Findings: Liver background: SUVMean 2.5, previously 1.7 Mediastinal blood pool background: SUVMean 2.0, previously 1.4 Head and Neck Brain: No abnormal foci of uptake appreciated. Sinuses, orbits, mastoids: No significant abnormality or abnormal uptake appreciated. Oral cavity, pharynx, larynx: No significant abnormality or abnormal uptake appreciated. Lymph nodes: No enlarged or avid nodes appreciated. Thyroid: Grossly unremarkable. Chest Lungs: Bullous emphysema with a fluid-filled bulla again noted in the left upper lobe. Ill-defined nodules with significant FDG uptake are again noted along the pleura of the left upper lobe. These are significantly increased in FDG uptake compared to prior examination. The most avid region along the anterolateral margin of the bulla adjacent to the left lateral 4th rib where SUV max measures 12.4, previously 5.4, while the superior area measures up to 11.5, previously 3.4. Mediastinum: Calcified coronary arterial and aortic atherosclerosis. Right chest MediPort. Trace pericardial effusion. Lymph nodes: Increased uptake within mediastinal nodes. A right paratracheal node which measures 7 millimeters with SUV max 3.8 previously measured 4 millimeters with SUV max 1.3, and an AP window node measuring 6 millimeters with SUV max 2.8 previously measured 5 millimeters with SUV max 1.2. Abdomen and Pelvis Hepatobiliary: No abnormal foci of uptake. No significant abnormality appreciated. Spleen: Unremarkable. Pancreas: Unremarkable. Adrenal glands: Unremarkable. Kidneys: Parenchyma appears grossly unremarkable with no abnormal uptake appreciated. No calculi. No hydronephrosis. Bowel: Focal uptake along the sigmoid colon favored to correlate to a diverticulum and likely inflammatory in nature. Vascular: Unchanged abdominal aortic aneurysm measuring 4.0 centimeters. Calcified atherosclerosis. Lymph nodes: No enlarged or avid nodes appreciated. Peritoneum: No avid mass. No free air. No free fluid. : Wall thickening of the decompressed bladder, unchanged. Soft tissues: No avid soft tissue lesion appreciated. Postoperative changes to the ventral abdominal wall Bones: No abnormal uptake. No lytic or blastic lesion. No acute or subacute appearing fracture. Degenerative changes of the spine and pelvis. Impression: Significant increase in radiotracer avidity of the pleural nodules and left upper lobe, as well as increase in size and uptake associated with mediastinal lymph nodes. Findings are concerning for disease progression. Dictated by Beck Melendrez MD @ 09/03/2024 6:47:24 PM (Electronically Signed)
--- OUTSIDE RECORDS SUMMARY | 2024-09-02 00:57 | XMS_ITS | Encounter Summary ---
Author Organization [facility] Address [address] [place] [address] Care Team Providers Care Project Scientist Name Role Phone Unavailable Primary Care Provider Unavailabl e Encounter Details Date Type Department Care Team (Late st Contact Info) Description 07/06/2024 Clinical Communication Department of Radiation Oncology in [place], [place] [address] [place] [id number] Whit Meade M.D. [address] [place] [address] Social History Tobacco Use Types Packs/Day Years Used Date Smoking Tobacco: Every Day Cigarettes 0.3 51.5 Started: 03/16/1973 Smokeless Tobacco: Never Alcohol Use Standard Drinks/Week Comments Yes 9 (1 standard drink = 0.6 oz pur e alcohol) 3-4 daily [facility] Utilities Answer Date Recorded In the past 12 months has [facility] [employer], gas, oil, or water [employer] threatened to shut off services in your [...] How often do you attend chur or scientology services? 1 to 4 times per year 06/19/2022 Do you belong to any clubs o r organizations such as holiness groups, unions, fraternal or athletic groups, or [...] and heating? Not hard at all 06/19/2022 [facility] - [...] your living situation today? I have a [facility] place to live 08/02/2023 Education Answer Date Recorded What is the highest level of school you have completed or the highest degree you have received? Some college, no degree 04/01/2021 Sex and Gender Information Value Date Recorded Sex Assigned at Male 04/01/2021 8:09 PM FITNESS DIRECTOR Legal Sex Male 11:17 AM FITNESS DIRECTOR Gender Identity Male 04/01/2021 8:09 PM FITNESS DIRECTOR Sexual Orientation Straight 04/01/2021 8: 09 PM FITNESS DIRECTOR documented as of this encounter Miscellaneous Notes * Telephone Encounter - Bess Orozco - 07/06/2024 10:47 AM CDT Outside Provider/Health Care Facility Inquiry Caller???s name: Jacinto Caller???s role: Speech Therapist Facility name: [facility] Rehab Phone number: [phone] Reason for call: Treatment plan, Jacinto called [...]
--- OUTSIDE RECORDS SUMMARY | 2024-09-02 00:57 | XMS_ITS | Clinical Summary ---
Author Organization [facility] Address [address] [place] [address] Care Team Providers Care Neck Pinner Name Role Phone Nedra Fontana RN, BSN, OCN Unavailable [phone] Mikal Gunter MD Primary Care Provider [phone] Allergies Active Allergy Reactions Criticality Noted Date [...] per actuation) nasal solution (FLONASE) Inhale 1 Liberal into affected nostril(s) once daily. Active albuterol-budes onide 90-80 mcg/actuation HFAA Inhale by mouth. 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 History of blood clots 12/15/2023 History of intravascular stent placement 024 CKD (chronic kidney disease), stage II Atherosclerosis of [place] ar teries of extremities with intermittent claudication, [...] Encounters Date Type Department Care Team Description 08/29/2024 Orders Only [facility] Scanner 1 scan: (1-Ord) [place], MR HEAD/BRAIN WO/W CON, 08/29/2024 08/28/2024 3:05 PM CDT Office Visit [facility] [address] [place] [address] Left without seen 08/28/2024 Orders Only [facility] Scanner 1 scan: (1-Ord) [facility], HEAD/BRAIN WON CON , 08/28/2024 08/28/2024 Travel 07/12/2024 2:10 PM CDT [place] [facility] [address] [place] [address] Mikal Gunter MD Fall (Fell yesterday, legs just gave out and his Oncologist wanted him to be seen today); Ear Problem (Still has swishing in right ear) 07/12/2024 Travel 07/11/2024 Orders Only [facility] Scanner 1 scan: (1-Ord) [facility], MULTIPLE LABS, 07/11/2024 07/11/2024 Orders Only [facility] Scanner 1 scan: (1-Ord) [facility], MULTIPLE LABS, 07/11/2024 07/06/2024 Orders Only [facility] Scanner 1 scan: (1-Ord) [facility], [place] BARIUM SWALLOW MODIFIED, 07/06/2024 06/07/2024 Orders Only [facility] Scanner 1 scan: (1-Ord) [facility], CHEST 2V, 06/07/2024 from Last 3 Months [...] on file Legal Sex Male 6:51 AM COUNTER INTELLIGENCE AGENT Gender Identity Not on file Sexual Orientation Not on file Obstetrics History Last Filed Vital Signs Vital Sign Reading Time Taken Comments Blood Pressure 120/82 07/12/2024 2:20 PM CDT Pulse 89 07/12/2024 2:20 PM CDT Temperature 36.1 C (97 F) 03/11/2021 7:00 AM COUNTER INTELLIGENCE AGENT Respiratory Rate 20 04/05/2024 8:25 AM COUNTER INTELLIGENCE AGENT Oxygen Saturation 99% 07/12/2024 2:20 PM CDT [...] COVID-19 vaccine series (8 - Moderna risk season) 2024 12/15/2023, 01/26/2023, 12/05/2021, Additional history [...] 65-74 Completed 10/31/19 22 ([facility] 11/10/2020 Influenza Vaccine Completed 12/15/2023, , 02/10/2021, Additional history exists Tdap Completed 02/23/2024, 06/09/2013 Zoster (shingles) series for age 50+ Completed 02/23/2024, 01/26/2023 Hepatitis B series for 19+ Aged Out N o longer eligible based on patient's age to complete this topic Procedures Procedure Name Priority Date/Time Associated Diagnosis Comments SCAN-MRI INTERPRETATION 08/30/19 12:00 AM CDT SCAN-CT INTERPRETATION 12:00 AM CDT SCAN-LABORATORY REPORT 12:00 AM CDT SCAN-LABORATORY REPORT 12:00 AM CDT SCAN-RADIOLOGY REPORT 07/06/2024 12:00 AM CDT AMB CONSULT TO GASTROENTEROLOGY Routine 06/09/2024 7:16 PM CDT Angiodysplasia of gastrointestinal tract Anemia, unspecified type SCAN-RADIOLOGY REPORT 06/07/2024 12:00 AM CDT SCAN-COLONOSCOPY 11/10/2023 12:[address] CHEST W Routine 02/26/2021 3:27 PM COUNTER INTELLIGENCE AGENT Lung mass CT CHEST ABDOMEN PELVIS W VINCE 11/10/2020 9:53 AM CDT Radicular pain in left arm Chronic left-sided thoracic back pain Elevated PSA LIPID PANEL W REFLEX MEASURED LDL Routine 09/28/2020 11:12 AM CDT Lipid screening ANTI HCV Routine 06/09/2013 9:41 AM CDT Need for hepatitis C screening test from Last 3 Months or Most Recently Relevant to Health Maintenance Results * SCAN-MRI INTERPRETATION (08/29/2024 12:00 AM CDT) Anatomical Region Laterality Modality Other us Scanner OTHER Final Result * SCAN-CT INTERPRETATION (08/28/2024 12:00 AM CDT) Anatomical Region Laterality Modality Other us Scanner OTHER Final Result * SCAN-LABORATORY REPORT (07/11/2024 12:00 AM CDT) [...] * CT CHEST W (02/26/2021 3:27 PM COUNTER INTELLIGENCE AGENT) Anatomical Region Laterality Modality CHEST, THORAX, HEART Other 02/26/2021 3:27 PM COUNTER INTELLIGENCE AGENT Narrative 02/26/2021 3:40 PM COUNTER INTELLIGENCE AGENT EXAM DATE: 02/26/2021 EXAM: CT CHEST WITH CONTRAST LOCATION: [facility] DATE/TIME: 02/26/2021 3:30 PM INDICATION: Lung mass COMPARISON: CT chest abdomen pelvis 11/10/2020, PET/CT 02/26/2021 reviewed. TECHNIQUE: CT chest with IV contrast. Multiplanar reformats were obtained. Dose reduction techniques were used. CONTRAST: 100ml of [id number] was administered from a single use vial with 0ml discarded. MWR I-STAT Cr=0.7mg/dl, cDGQ=722. [id number] Lot [id number] Ex:06/2023 FINDINGS: LUNGS AND PLEURA: Irregular mass [...] 02/26/2021 EXAM: CT CHEST WITH CONTRAST LOCATION: [facility] DATE/TIME: 02/26/2021 3:30 PM INDICATION: Lung mass COMPARISON: CT chest abdomen pelvis 11/10/2020, PET/CT 02/26/2021eviewed. TECHNIQUE: CT chest with IV contrast. Multiplanar reformats were obtained.Dose reduction techniques were used. CONTRAST: 100ml of [id number] was administered from a single use vial gfww5en discarded. MWR I-STAT Cr=0.7mg/dl, rDYN=615. [id number] Lot [id number]:06/2023 FINDINGS: LUNGS AND PLEURA: Irregular mass in the posteromedial left upper lobe apexwith direct chest wall invasion has increased in size since 11/02/2020stimated at 3.3 x 6.6 x 5.2 cm [...] Pelvis, AORTA, LIVER, SPLEEN Computed Tomography 11/10/2020 9:5 3 AM CDT Narrative 11/10/2020 10:16 AM CDT For Patients: As a result of the 21st Century Cures Act, medical imaging exams and procedure reports are released immediately into your electronic medical record. You may view this report before your referring provider. If you have questions, please contact your health care provider. EXAM: CT CHEST ABDOMEN PELVIS W LOCATION: [facility] DATE/TIME: 11/10/2020 9:53 AM INDICATION: Radicular Pain [...] For Patients: As a result of the Century Cures Act, medical imagingexams and procedure reports are released immediately into your electronicmedical record. You may view this report before your referring provider.If you have questions, please contact your health care provider. EXAM: CT CHEST ABDOMEN PELVIS W LOCATION: [facility] DATE/TIME: 11/10/2020 9:53 AM INDICATION: Radicular Pain [...] changes and prominent apicalbulla. us Martina Cid FARMWORKER FIELD CROP CT Final Res ult * LIPID PANEL W REFLEX MEASURED LDL (09/28/2020 11:12 AM CDT) Pathologist [facility] CHOLESTEROL,TOTAL 196 100 - 199 mg/dL 09/28/2020 5:00 PM CDT [facility] TRIGLYCERIDES 69 <150 mg/dL 09/28/2020 5:00 PM CDT [facility] HDL CHOLESTEROL 59 >40 mg/dL 5:00 PM CDT [facility] NON-HDL CHOLESTEROL 137 <145 mg/dl 09/28/2020 5:00 PM T [facility] CHOL/HDL RATIO 3.32 <4.50 09/28/2020 5:00 PM CDT [facility] LDL CHOLESTEROL 123 <=130 mg/dL 09/28/2020 5:00 PM T [facility] VLDL CHOLESTEROL 14 mg/dL 09/29/19 5:00 PM CDT [facility] PROVIDER ORDERED STATUS RANDOM 09/28/2020 5:00 PM T [facility] Blood BLOOD SPECIMEN / Unknown Venipuncture / Unknown 09/28/2020 11:12 AM CDT 09/28/2020 11:12 AM CDT us Martina Cid FARMWORKER [employer] CHEMISTRY Final Res ult [facility] [address] [place] [address], [place] * ANTI HCV [61069.2] (06/09/2013 9:41 AM CDT) ANTI HCV Non-reacti ve [facility] Blood specimen (specimen) BLOOD SPECIMEN / Unknown 06/09/2013 9:41 AM CDT 06/09/2013 9:34 AM CDT us Aye Green MD SEND OUTS Final Result [facility] INTERNAL ZIP [id number] [place] [address] from Last 3 Months or Most Recently Relevant to Health Maintenance Insurance MEDICARE PART A HB ONLY [facility] Care Teams Neck Pinner Relationship Specialty [place] [address] [place] [address] PCP - General Family Practice 12/10/23 Nedra Fontana, RN, BSN, OCN [address] [facility] [address] [place], [place] [id number] Nurse Navigator - Oncology Registered Nurse 02/27/21
--- OUTSIDE RECORDS SUMMARY | 2024-09-02 00:57 | XMS_ITS | Clinical Summary ---
Author Organization [place] Address [address] [place] [address] Care Team Providers Care Home Economist Consumer Service Name Role Phone Mikal Gunter MD Primary Care Provider [phone] Allergies Active Allergy Reactions Criticality Noted Date [...] on file Legal Sex Male 3:40 AM ENTERPRISE APPLICATION ANALYST Gender Identity Not on file Sexual Orientation Not on file Last Filed Vital Signs Vital Sign Reading Time Taken Comments Blood Pressure 144/81 04/06/2024 3:43 PM ENTERPRISE APPLICATION ANALYST Pulse 83 04/06/2024 3:00 PM ENTERPRISE APPLICATION ANALYST Temperature 36.9 C (98.4 F) 04/06/2024 3:43 PM ENTERPRISE APPLICATION ANALYST Respiratory Rate 16 04/06/2024 3:43 PM ENTERPRISE APPLICATION ANALYST Oxygen Saturation 92% 04/06/2024 3:43 PM ENTERPRISE APPLICATION ANALYST Inhaled Oxygen Concentration - - Weight 75.4 kg (166 lb 4.8 oz) 04/06/2024 12:32 PM ENTERPRISE APPLICATION ANALYST Height 185.4 cm (6' 1) 04/06/2024 12:32 PM ENTERPRISE APPLICATION ANALYST Body Mass Index 21.94 04/06/2024 12:32 PM ENTERPRISE APPLICATION ANALYST Plan of Treatment Upcoming Encounters Date Type Department Care Team (Latest Contact Info) Description 10/31/2024 10:30 AM CDT Hospital Encounter [facility] [address] [phone] Constance Khan MD [facility] [address] [place] [address] [place] [id number] 10/31/2024 10:30 AM CDT - 10/31/2024 11:15 AM CDT Surgery [facility] [address] [phone] Constance Khan MD [facility] [address] [place] [address] [place] [id number] small bowel Enteroscopy Scheduled Procedures Name Priority [...] Insurance [employer] MEDICARE ADVANTAGE Care Teams Home Economist Consumer Service Relationship Specialty [place] [address] [place] [address] PCP - General 04/01/24
--- OUTSIDE RECORDS SUMMARY | 2024-09-02 00:57 | XMS_ITS | Encounter Summary ---
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 [address] [place] [phone] Phone: tel: fax: [facility] Referral ID Status Reason Start Date Expiration Date V isits Requested Visits Authorized [id number] Authorized 08/19/2024 02/18/2026 1 1 Encounter Details Date Type Department Care Team (Late st Contact Info) Description 08/19/2024 Clinical Communication Division of Vascular and Endovascular Surgery in [place], [place] [address] [place] [phone] Fredrick Regan M.B., Ch.B., Ph.D. [address] [place] [phone] Social History Tobacco Use Types Packs/Day Years Used Date Smoking Tobacco: Every Day Cigarettes 0.3 51.5 Started: 03/16/1973 Smokeless Tobacco: Never Alcohol Use Standard Drinks/Week Comments Yes 9 (1 standard drink = 0.6 oz pur e alcohol) 3-4 daily [facility] Utilities Answer Date Recorded In the past 12 months has [facility] [email or web address], gas, oil, or water [employer] threatened to shut off services in your [...] How often do you attend chur or zoroastrian services? 1 to 4 times per year 06/19/2022 Do you belong to any clubs o r organizations such as shinto groups, unions, fraternal or athletic groups, or [...] heating? Not hard at all 06/19/2022 [facility] - Occupational [...] your living situation today? I have a [facility] place to live 08/02/2023 Education Answer Date Recorded What is the highest level of school you have completed or the highest degree you have received? Some college, no degree 04/01/2021 Sex and Gender Information Value Date Recorded Sex Assigned at Male 04/01/2021 8:09 PM GEOLOGICAL AIDE Legal Sex Male 11:17 AM GEOLOGICAL AIDE Gender Identity Male 04/01/2021 8:09 PM GEOLOGICAL AIDE Sexual Orientation Straight 04/01/2021 8: 09 PM GEOLOGICAL AIDE documented as of this encounter Plan of [...]
--- OUTSIDE RECORDS SUMMARY | 2024-09-02 00:57 | XMS_ITS | Encounter Summary ---
Author Organization [facility] Address [address] [place] [address] Care Team Providers Care Manager Enrollment Name Role Phone Unavailable Primary Care Provider Unavailabl e Reason for Visit * Reason Onset Date Comments Order Request 07/15/2024 Encounter Details Date Type Department Care Team (Late st Contact Info) Description 07/15/2024 Clinical Communication Department of Oncology in [place], [place] [address] [place] [phone] Charity Dudley M.D. [address] [place] [address] Order Request Social History Tobacco Use Types Packs/Day Years Used Date Smoking Tobacco: Every Day Cigarettes 0.3 51.5 Started: 03/16/1973 Smokeless Tobacco: Never Alcohol Use Standard Drinks/Week Comments Yes 9 (1 standard drink = 0.6 oz pur e alcohol) 3-4 daily [facility] Utilities Answer Date Recorded In the past 12 months has [employer], gas, oil, or water [employer] threatened to shut off services in your [...] How often do you attend chur or denominational services? 1 to 4 times per year 06/19/2022 Do you belong to any clubs o r organizations such as gnosticist groups, unions, fraternal or athletic groups, or [...] and heating? Not hard at all 06/19/2022 [facility] - [...] your living situation today? I have a [facility] place to live 08/02/2023 Education Answer Date Recorded What is the highest level of school you have completed or the highest degree you have received? Some college, no degree 04/01/2021 Sex and Gender Information Value Date Recorded Sex Assigned at Male 04/01/2021 8:09 PM FILM DEVELOPER Legal Sex Male 11:17 AM FILM DEVELOPER Gender Identity Male 04/01/2021 8:09 PM FILM DEVELOPER Sexual Orientation Straight 04/01/2021 8: 09 PM FILM DEVELOPER documented as of this encounter Miscellaneous Notes * Telephone Encounter - Vangie Adamson - 07/15/2024 1:54 PM CDT Patient Call: Reason for Call: [facility] is requesting orders from Dr. Dudley for hold/ bridge of Eliquis prior to small bowel enteroscopy on July 26. Caller: [facility] - Valid Authorization on File: no Preferred Call Back Number: [phone] fax [phone] Preferred Call Back Time of Day: any [...]
--- OUTSIDE RECORDS SUMMARY | 2024-09-02 00:57 | XMS_ITS | Continuity of Care Document ---
Author Organization [facility] Address [address] [place] [address] Care Team Providers Care Mechanical Applications Engineer Name Role Phone Unavailable Primary Care Provider Unavailabl e Source Comments Patient records contain information from all sites at [facility]. For routine questions regarding patient records, call [phone] during business hours, M-F 8:00 AM - 5:00 PM Central Time. Record requests for emergency care only can be directed to [phone] at any time.[facility] Encounters Date Type Department Care Team Description 08/19/2024 Clinical Communication Division of Vascular and Endovascular Surgery in [place], [place] [address] [place] [address] Pritesh Regan M.B., Ch.B., Ph.D. 07/29/2024 Clinical Communication Department of Radiation Oncology in [address] [address] Whit Meade M.D. 07/15/2024 Clinical Communication Department of Oncology in [place], [place] [address] [place] [address] Charity Dudley M.D. Order Request 07/06/2024 Clinical Communication Department of Radiation Oncology in [address] [address] Whit Meade M.D. 06/16/2024 Clinical Communication Department of Oncology in [place], [place] [address] [place] [address] Charity Dudley M.D. 05/23/2024 9:59 AM CDT - 05/23/2024 11:59 PM CDT Hospital Encounter Department of Radiology in [address] [address] Charity Dudley M.D. 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 02/29/2024 7:57 AM CIGARETTE INSPECTOR - 02/29/2024 11:59 PM CIGARETTE INSPECTOR Hospital Encounter Department of Radiology in [address] [address] Charity Dudley M.D. 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 11/18/2023 10:20 AM CDT - 11/18/2023 11:59 PM CDT Hospital Encounter Department of Vascular Medicine in [place], [place] [address] [place] [address] Pritesh Regan M.B., Ch.B., Ph.D. 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 Peripheral Arterial Disease (HCC) (Primary Dx) 10/22/2023 Clinical Communication Division of Vascular and Endovascular Surgery in [place], [place] [address] [place] [phone] Pritesh Regan M.B., Ch.B., Ph.D. Carotid Blockage 10/02/2023 Clinical Communication Division of Vascular and Endovascular Surgery in [place], [place] [address] [place] [phone] Pritesh Regan M.B., Ch.B., Ph.D. 10/01/2023 5:38 AM CDT - 10/02/2023 5:14 PM CDT Hospital Encounter [facility], Eighth Floor [address] [place] [phone] Pritesh Regan M.B., Ch.B., Ph.D. 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 Ana Bowie APRN, CIGAR HEAD PUNCHER, DNAP 10/01/2023 7:00 AM CDT - 10/01/2023 10:16 AM CDT Surgery [facility] ROMB MAIN OR [address] [place] [phone] Pritesh Regan M.B., Ch.B., Ph.D. IR ENDOVASCULAR ANGIOPLASTY STENT LOWER EXTREMITY, left groin access. 09/29/2023 Clinical Communication Division of Vascular and Endovascular Surgery in [place], [place] [address] [place] [phone] Pritesh Regan M.B., Ch.B., Ph.D. Update on condition before surgery 09/15/2023 Clinical Communication Division of Vascular and Endovascular Surgery in [place], [place] [address] [place] [phone] Pritesh Regan M.B., Ch.B., Ph.D. 09/15/2023 9:40 AM CDT Virtual Visit Division of Vascular and Endovascular Surgery in [place], [place] [address] [place] [phone] Pritesh Regan M.B., Ch.B., Ph.D. 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 Phone Contact 08/16/2023 Orders Only Department of Vascular Medicine in [place], [place] [address] [place] [phone] Ren Burgess M.D. 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) (Primary Dx) 08/12/2023 4:45 PM CDT Office Visit Department of Vascular Medicine in [place], [place] [address] [place] [phone] Ren Burgess M.D. 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) (Primary Dx); Nicotine Dependence Cigarettes 08/12/2023 1:40 PM CDT Comprehensive Visit Division of Vascular and Endovascular Surgery in [place], [place] [address] [place] [address] Pritesh Regan M.B., Ch.B., Ph.D. 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) 08/12/2023 8:23 AM CDT - 08/12/2023 11:59 PM CDT Hospital Encounter Department of Radiology, [facility] in [place], [place] [address] [place] [address] Anh Tamayo M.D. 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) Discharge Disposition: Home or Self Care 08/03/2023 3:25 PM CDT - 08/03/2023 11:59 PM CDT Hospital Encounter Department of Vascular Medicine in [place], [place] [address] [place] [address] Avinash Owens M.D. 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) Discharge Disposition: Home or Self Care 08/03/2023 10:15 AM CDT Comprehensive Visit Department of Vascular Medicine in [place], [place] [address] [place] [address] Avinash Owens M.D. 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) (Primary Dx) 07/14/2023 Clinical Communication Department of Oncology in [place], [place] [address] [place] [phone] Charity Dudley M.D. 07/14/2023 Orders Only Department of Oncology in [place] [address] [place] [address] Charity Dudley M.D. Ischemic Limb (Primary Dx); Aortic Ectasia (HCC) 04/21/2023 Patient Outreach Department of Oncology in [place], [place] [address] [place] [address] Jaden Villarreal M.S.N., R.N., C.M.S.R.N. Tumor Board 04/20/2023 Tumor Board Conference Department of Radiation Oncology in [address] [address] Whit Meade M.D. 09/30/2022 8:59 AM CDT - 09/30/2022 4:51 PM CDT Hospital Encounter Department of Radiation Oncology in [address] [address] Whit Meade M.D. 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 07/08/2022 10:15 AM CDT Anesthesia Event Department of Radiology, [facility], in [place], [place] [address] [place] [phone] Ellyn Robles APRN, CRNA Davidson, Brock C, M.D. 07/08/2022 8:47 AM CDT - 07/08/2022 1:08 PM CDT Hospital Encounter Department of Radiology, [facility], in [place], [place] [address] [place] [phone] Pritesh Tee M.D. Lange, Samantha M, APRN, CRNA, DNAP Lesion Soft Tissue Discharge Disposition: Home or Self Care 06/26/2022 2:00 PM CDT Telemedicine Preoperative Evaluation Center in [place], [place] [address] [place] [address] Pritesh Tee M.D. Annmarie Mayo, ISELA C.N.P., M.S.N. 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 Secondary Malignant Neoplasm Soft Tissue (HCC) 06/04/2022 Orders Only Department of Radiology, [place], [place] [address] [place] [address] Sindhu Muse, R.Heri. Lesion Soft Tissue (Primary Dx) 06/02/2022 Clinical Communication Department [place], [place] [address] [place] [address] Sindhu Muse R.N. Pre-Ablation 06/02/2022 Orders Only Department of Radiation Oncology in [address] [address] Whit Meade M.D. Secondary Malignant Neoplasm Soft Tissue (HCC) (Primary Dx) 05/28/2022 1:10 PM CDT - 05/28/2022 5:10 PM CDT Hospital Encounter Department of Radiation Oncology in [address] [address] Whit Meade M.D. 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 03/07/2022 9:33 AM CIGARETTE INSPECTOR - 03/07/2022 11:59 PM CIGARETTE INSPECTOR Hospital Encounter Department of Radiation Oncology in [address] [address] Whit Meade M.D. Discharge Disposition: Home or Self Care 03/05/2022 9:35 AM CIGARETTE INSPECTOR - 03/07/2022 10:22 AM CIGARETTE INSPECTOR Hospital Encounter Department of Radiation Oncology in [address] [address] Whit Meade M.D. Leenstra, James L, M.D. Secondary Malignant Neoplasm Soft Tissue (HCC); Nicotine Dependence 03/05/2022 9:35 AM CIGARETTE INSPECTOR - 03/05/2022 11:59 PM CIGARETTE INSPECTOR Hospital Encounter Department of Radiation Oncology in [address] [address] Whit Meade M.D. Discharge Disposition: Home or Self Care 03/03/2022 12:56 PM CIGARETTE INSPECTOR - 03/03/2022 11:59 PM CIGARETTE INSPECTOR Hospital Encounter Department of Radiation Oncology in [address] [address] Whit Meade M.D. Discharge Disposition: Home or Self Care 02/24/2022 9:32 AM CIGARETTE INSPECTOR - 02/24/2022 10:55 AM CIGARETTE INSPECTOR Hospital Encounter Department of Radiation Oncology in [address] [address] Whit Meade M.D. Secondary Malignant Neoplasm Soft Tissue (HCC) 02/24/2022 8:57 AM CIGARETTE INSPECTOR - 02/24/2022 9:31 AM CIGARETTE INSPECTOR Hospital Encounter Department of Radiation Oncology in [address] [address] Whit Meade M.D. 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 Secondary Malignant Neoplasm Soft Tissue (HCC) (Primary Dx) 02/14/2022 3:01 PM CIGARETTE INSPECTOR - 02/14/2022 5:42 PM CIGARETTE INSPECTOR Hospital Encounter Department of Radiation Oncology in [address] [address] Whit Meade M.D. 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 10/23/2021 Orders Only Department of Radiology, [facility], in [place], [place] [address] [place] [address] Annmarie Motta P.A.Mariel., M.S. 10/23/2021 11:56 AM CDT Anesthesia Event Department of Radiology, [facility], in [place], [place] [address] [place] [address] Heavenly Barber APRN, Sanna Jama APRN, CIGAR HEAD PUNCHER 10/23/2021 9:16 AM CDT - 10/23/2021 5:04 PM CDT Hospital Encounter Department of Radiology, [facility], in [address] [address] Pritesh Tee M.D. Goumbala, Matar, APRN, JATIN Lesion Bone Discharge Disposition: Home or Self Care 10/22/2021 1:00 PM CDT Comprehensive Visit Department of Radiology, [facility], in [address] [address] Annmarie Motta P.A.-C., M.S. 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 Lesion Bone Discharge Disposition: Home or Self Care 10/22/2021 6:40 AM CDT - 10/22/2021 10:13 AM CDT [facility] [place] [place] [address] [place] [address] Whit Meade M.D. Lesion Bone Discharge Disposition: Home or Self Care 10/18/2021 1:45 PM CDT Comprehensive Visit Preoperative Evaluation Center in [place], [place] [address] [place] [address] Pritesh Tee M.D. Narr, Bradly J, M.D. Preanesthetic Medical Exam (Primary Dx); Lesion Bone; Emphysema (HCC); Hypertension Essential Primary; Depression Major Recurrent (HCC) 10/17/2021 Clinical Communication Department of Radiology, [facility], in [address] [address] Ibis Correa 10/15/2021 Orders Only Department of Radiology, [facility], in [address] [address] Bre Anguiano Lesion Bone (Primary Dx); Preprocedural Lab Exam; Encounter For Preprocedural Laboratory Examination (COVID-19) 10/10/2021 Patient Outreach Department of Oncology in [place], [place] [address] [place] [address] Jaden Villarreal M.SLeonel., R.N., C.M.S.R.N. 2021 Clinical Communication Department of Radiation Oncology in [address] [address] Whit Meade M.D. 2021 Orders Only Department of Radiology, [address] [address] Moody Holly R.N. Lesion Bone (Primary Dx) 08/22/2021 1:53 PM CDT - 08/22/2021 4:02 PM CDT Hospital Encounter Department of Radiation Oncology in [address] [address] Whit Meade M.D. 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 05/14/2021 Refill Department of Radiation Oncology in [address] [address] Whit Meade M.D. Med Refill 05/14/2021 Refill Department of Radiation Oncology in [address] [address] Whit Meade M.D. Med Refill 05/13/2021 Documentation Department of Radiation Oncology in [address] [address] Whit Meade M.D. Radiation 05/13/2021 Refill Department of Radiation Oncology in [address] [address] Whit Meade M.D. Med Refill 05/13/2021 Orders Only Department of Radiation Oncology in [address] [address] Whit Meade M.D. 05/13/2021 1:21 PM CIGARETTE INSPECTOR - 05/13/2021 11:59 PM CIGARETTE INSPECTOR Hospital Encounter Department of Radiation Oncology in [address] [address] Whit Meade M.D. Discharge Disposition: Home or Self Care 05/10/2021 3:48 PM CIGARETTE INSPECTOR - 05/10/2021 11:59 PM CIGARETTE INSPECTOR Hospital Encounter Department of Radiation Oncology in [address] [address] Whit Meade M.D. Discharge Disposition: Home or Self Care 05/09/2021 3:49 PM CIGARETTE INSPECTOR - 05/09/2021 11:59 PM CIGARETTE INSPECTOR Hospital Encounter Department of Radiation Oncology in [address] [address] Whit Meade M.D. Discharge Disposition: Home or Self Care 05/08/2021 7:50 AM CIGARETTE INSPECTOR - 05/08/2021 11:07 AM CIGARETTE INSPECTOR Hospital Encounter Department of Radiation Oncology in [address] [address] Whit Meade M.D. 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 Discharge Disposition: Home or Self Care 05/06/2021 3:50 PM CIGARETTE INSPECTOR - 05/06/2021 11:59 PM CIGARETTE INSPECTOR Hospital Encounter Department of Radiation Oncology in [address] [address] Whit Meade M.D. Discharge Disposition: Home or Self Care 05/03/2021 4:01 PM CIGARETTE INSPECTOR - 05/03/2021 11:59 PM CIGARETTE INSPECTOR Hospital Encounter Department of Radiation Oncology in [address] [address] Whit Meade M.D. Discharge Disposition: Home or Self Care 05/02/2021 3:44 PM CIGARETTE INSPECTOR - 05/02/2021 11:59 PM CIGARETTE INSPECTOR Hospital Encounter Department of Radiation Oncology in [address] [address] Whit Meade M.D. Discharge Disposition: Home or Self Care 05/01/2021 3:55 PM CIGARETTE INSPECTOR - 05/01/2021 11:59 PM CIGARETTE INSPECTOR Hospital Encounter Department of Radiation Oncology in [address] [address] Whit Meade M.D. Discharge Disposition: Home or Self Care 04/30/2021 8:54 AM CIGARETTE INSPECTOR - 04/30/2021 11:02 AM CIGARETTE INSPECTOR Hospital Encounter Department of Radiation Oncology in [address] [address] Beni Mcgill M.D. 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 Discharge Disposition: Home or Self Care 04/29/2021 3:52 PM CIGARETTE INSPECTOR - 04/29/2021 11:59 PM CIGARETTE INSPECTOR Hospital Encounter Department of Radiation Oncology in [address] [address] Whit Meade M.D. Discharge Disposition: Home or Self Care 04/26/2021 3:48 PM CIGARETTE INSPECTOR - 04/26/2021 11:59 PM CIGARETTE INSPECTOR Hospital Encounter Department of Radiation Oncology in [address] [address] Whit Meade M.D. Discharge Disposition: Home or Self Care 04/25/2021 3:55 PM CIGARETTE INSPECTOR - 04/25/2021 11:59 PM CIGARETTE INSPECTOR Hospital Encounter Department of Radiation Oncology in [address] [address] Whit Meade M.D. Discharge Disposition: Home or Self Care 04/24/2021 3:24 PM CIGARETTE INSPECTOR - 04/24/2021 11:59 PM CIGARETTE INSPECTOR Hospital Encounter Department of Radiation Oncology in [address] [address] Whit Meade M.D. Discharge Disposition: Home or Self Care 04/23/2021 8:52 AM CIGARETTE INSPECTOR - 04/23/2021 11:03 AM CIGARETTE INSPECTOR Hospital Encounter Department of Radiation Oncology in [address] [address] Beni Mcgill M.D. 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 Discharge Disposition: Home or Self Care 04/22/2021 3:18 PM CIGARETTE INSPECTOR - 04/22/2021 11:59 PM CIGARETTE INSPECTOR Hospital Encounter Department of Radiation Oncology in [address] [address] Whit Meade M.D. Discharge Disposition: Home or Self Care 04/19/2021 3:25 PM CIGARETTE INSPECTOR - 04/19/2021 11:59 PM CIGARETTE INSPECTOR Hospital Encounter Department of Radiation Oncology in [address] [address] Whit Meade M.D. Leenstra, James L, M.D. Discharge Disposition: Home or Self Care 04/18/2021 3:55 PM CIGARETTE INSPECTOR - 04/18/2021 11:59 PM CIGARETTE INSPECTOR Hospital Encounter Department of Radiation Oncology in [address] [address] Whit Meade M.D. Discharge Disposition: Home or Self Care 04/17/2021 3:27 PM CIGARETTE INSPECTOR - 04/17/2021 11:59 PM CIGARETTE INSPECTOR Hospital Encounter Department of Radiation Oncology in [address] [address] Whit Meade M.D. Discharge Disposition: Home or Self Care 04/16/2021 7:49 AM CIGARETTE INSPECTOR - 04/16/2021 10:02 AM CIGARETTE INSPECTOR Hospital Encounter Department of Radiation Oncology in [address] [address] Whit Meade M.D. 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 Discharge Disposition: Home or Self Care 04/15/2021 3:21 PM CIGARETTE INSPECTOR - 04/15/2021 11:59 PM CIGARETTE INSPECTOR Hospital Encounter Department of Radiation Oncology in [address] [address] Whit Meade M.D. Discharge Disposition: Home or Self Care 04/12/2021 3:55 PM CIGARETTE INSPECTOR - 04/12/2021 11:59 PM CIGARETTE INSPECTOR Hospital Encounter Department of Radiation Oncology in [address] [address] Whit Meade M.D. Discharge Disposition: Home or Self Care 04/11/2021 3:55 PM CIGARETTE INSPECTOR - 04/11/2021 11:59 PM CIGARETTE INSPECTOR Hospital Encounter Department of Radiation Oncology in [address] [address] Whit Meade M.D. 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 Discharge Disposition: Home or Self Care 04/09/2021 8:23 AM CIGARETTE INSPECTOR - 04/09/2021 10:33 AM CIGARETTE INSPECTOR Hospital Encounter Department of Radiation Oncology in [address] [address] Beni Mcgill M.D. 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 Discharge Disposition: Home or Self Care 04/08/2021 3:56 PM CIGARETTE INSPECTOR - 04/08/2021 11:59 PM CIGARETTE INSPECTOR Hospital Encounter Department of Radiation Oncology in [address] [address] Whit Meade M.D. Discharge Disposition: Home or Self Care 04/05/2021 3:37 PM CIGARETTE INSPECTOR - 04/05/2021 11:59 PM CIGARETTE INSPECTOR Hospital Encounter Department of Radiation Oncology in [address] [address] Whit Meade M.D. Discharge Disposition: Home or Self Care 04/04/2021 3:22 PM CIGARETTE INSPECTOR - 04/04/2021 11:59 PM CIGARETTE INSPECTOR Hospital Encounter Department of Radiation Oncology in [address] [address] Whit Meade M.D. Discharge Disposition: Home or Self Care 04/03/2021 3:39 PM CIGARETTE INSPECTOR - 04/03/2021 11:59 PM CIGARETTE INSPECTOR Hospital Encounter Department of Radiation Oncology in [address] [address] Whit Meade M.D. Discharge Disposition: Home or Self Care 04/02/2021 8:58 AM CIGARETTE INSPECTOR - 04/02/2021 11:53 AM CIGARETTE INSPECTOR Hospital Encounter Department of Radiation Oncology in [address] [address] Whit Meade M.D. 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 Discharge Disposition: Home or Self Care 04/01/2021 Orders Only Department of Radiation Oncology in [address] [address] Whit Meade M.D. 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 Discharge Disposition: Home or Self Care 03/25/2021 1:00 PM CIGARETTE INSPECTOR - 03/25/2021 4:20 PM CIGARETTE INSPECTOR Hospital Encounter Department of Radiation Oncology in [address] [address] Whit Meade M.D. 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 Grieman, Kari A, R.N. Discharge Disposition: Home or Self Care 03/22/2021 1:00 PM CIGARETTE INSPECTOR - 03/22/2021 1:41 PM CIGARETTE INSPECTOR Hospital Encounter Department of Radiation Oncology in [place], [place] [address] [place] [phone] Whit Meade M.D. 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 Malignant Neoplasm Of Lung [...] Dad Social History Smoking Status as of 09/02/2024 Tobacco Use Types Packs/Day Years Used Date Smoking Tobacco: Never Assessed [facility] Utilities Answer Date Recorded In the past 12 months has th e Code Fever, gas, oil, or water Care Thread threatened to shut off services in your [...] often do you attend chur ch or methodist services? 1 to 4 times per year 06/19/2022 Do you belong to any clubs o r organizations such as zoroastrian groups, unions, fraternal or athletic groups, or [...] and heating? Not hard at all 06/19/2022 [facility] Occup[facility] ional [facility] - Occupational Stress [...] your living situation today? I have a [facility] to live 08/02/2023 Education Answer Date Recorded What is the highest level of school you have completed or the highest degree you have received? Some college, no degree 04/01/2021 Sex and Gender Information Value Date Recorded Sex Assigned at Male 04/01/2021 8:09 PM CIGARETTE INSPECTOR Legal Sex Male 11:17 AM CIGARETTE INSPECTOR Gender Identity Male 04/01/2021 8:09 PM CIGARETTE INSPECTOR Sexual Orientation Straight 04/01/2021 8: 09 PM CIGARETTE INSPECTOR Last Filed Vital Signs Vital Sign Reading [...] on file Medical Devices Implanted Type Area Top And Seat Cover Fitter Device Identifier Shelf Expiration Date Model / Serial / Lot 6fr Angio-Seal Implanted:Qty : 1 on 10/01/2023 by Pritesh Regan M.B., Ch.B., Ph.D. at [facility] Other Unknown [id number] / / [id number] 1 Description:ANGLE-SEAL 8fr. Angio-Seal Implanted:Qty : 1 on 10/01/2023 by Pritesh Regan M.B., Ch.B., Ph.D. at [facility] Other Unknown [id number] / / [id number] Description:ANGIO-SEAL VENDO R Stnt Viabahn 018 [id number] - [id number] - [id number] Implanted:Qty : 1 on 10/01/2023 by Pritesh Regan M.B., Ch.B., Ph.D. at [facility] Vascular Stent Right: Leg [place] 03/26/2025 [id number] / [id number] / Stnt Viabahn 018 [id number] - [id number] - [id number] Implanted:Qty : 1 on 10/01/2023 by Pritesh Regan M.B., Ch.B., Ph.D. at [facility] Vascular Stent Right: Leg [place] 06/09/2025 [id number] / [id number] / Stnt Innova Otw [id number] - [id number] Implanted:Qty : 1 on 10/01/2023 by Pritesh Regan M.B., Ch.B., Ph.D. at [facility] Vascular Stent Right: Leg [employer] 09/11/2027 [id number] / / [id number] [facility] Grft Viabahn [id number] - [id number] - [id number] Implanted:Qty : 1 on 10/01/2023 by Pritesh Regan M.B., ChVineetB., Ph.D. 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) PET CT SKULL TO THIGH RAD - Routine (most inpatients and all outpatients) 02/29/2024 9:42 AM CIGARETTE INSPECTOR Malignant Neoplasm Of Lung Upper Lobe Or [...] Obliterans Lower Extremity With Claudication (HCC) OUTSIDE IN PET Routine 11/12/2023 3:00 PM CDT OUTSIDE [...] outpatients) 08/12/2023 9:46 AM CDT 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) OUTSIDE NM PET Routine 08/06/2023 6:10 PM CDT LOWER EXTREMITY ARTERIAL (BRENDA) - EXERCISE (CLAUDICATION) Routine 08/03/2023 4:29 PM CDT 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) OUTSIDE NM PET Routine 04/16/2023 3:20 PM CIGARETTE INSPECTOR OUTSIDE NM PET Routine 01/22/2023 3:05 PM CIGARETTE INSPECTOR OUTSIDE MR NEURO Routine 09/19/2022 2:45 PM [...] OUTSIDE NM PET Routine 05/15/2022 2:10 PM CIGARETTE INSPECTOR ARIA COURSE COMPLETE TREATMENT INFORMATION Routine 03/07/2022 10:29 AM CIGARETTE INSPECTOR ARIA DAILY TREATMENT INFORMATION Routine 03/07/2022 10:29 AM CIGARETTE INSPECTOR ARIA DAILY TREATMENT INFORMATION Routine 03/05/2022 10:18 AM CIGARETTE INSPECTOR ARIA DAILY TREATMENT INFORMATION Routine 03/03/2022 1:28 PM CIGARETTE INSPECTOR INITIAL RAD ONC TREATMENT PLANNING CT SIMULATION Routine 02/24/2022 10:00 AM CIGARETTE INSPECTOR Secondary Malignant Neoplasm Soft Tissue (HCC) OUTSIDE US NEURO Routine 02/11/2022 10:30 AM CIGARETTE INSPECTOR OUTSIDE NM PET Routine 01/23/2022 3:30 PM CIGARETTE INSPECTOR OUTSIDE MR NEURO Routine 01/20/2022 2:30 PM CIGARETTE INSPECTOR LDA ANE ARTERIAL LINE INSERTION Routine 10/23/2021 3:02 PM CDT NH ARTL CATH/CNULA MONITOR PERC Routine 10/23/2021 3:02 [...] COMPLETE TREATMENT INFORMATION Routine 05/13/2021 1:39 PM CIGARETTE INSPECTOR ARIA DAILY TREATMENT INFORMATION Routine 05/13/2021 1:39 PM CIGARETTE INSPECTOR ARIA DAILY TREATMENT INFORMATION Routine 05/10/2021 4:02 PM CIGARETTE INSPECTOR ARIA DAILY TREATMENT INFORMATION Routine 05/09/2021 3:59 PM CIGARETTE INSPECTOR ARIA DAILY TREATMENT INFORMATION Routine 05/08/2021 8:08 AM CIGARETTE INSPECTOR ARIA DAILY TREATMENT INFORMATION Routine 05/06/2021 4:22 PM CIGARETTE INSPECTOR ARIA DAILY TREATMENT INFORMATION Routine 05/03/2021 4:12 PM CIGARETTE INSPECTOR ARIA DAILY TREATMENT INFORMATION Routine 05/02/2021 3:58 PM CIGARETTE INSPECTOR ARIA DAILY TREATMENT INFORMATION Routine 05/01/2021 4:16 PM CIGARETTE INSPECTOR ARIA DAILY TREATMENT INFORMATION Routine 04/30/2021 9:08 AM CIGARETTE INSPECTOR ARIA DAILY TREATMENT INFORMATION Routine 04/29/2021 4:05 PM CIGARETTE INSPECTOR ARIA DAILY TREATMENT INFORMATION Routine 04/26/2021 3:58 PM CIGARETTE INSPECTOR ARIA DAILY TREATMENT INFORMATION Routine 04/25/2021 4:08 PM CIGARETTE INSPECTOR ARIA DAILY TREATMENT INFORMATION Routine 04/24/2021 4:00 PM CIGARETTE INSPECTOR ARIA DAILY TREATMENT INFORMATION Routine 04/23/2021 9:29 AM CIGARETTE INSPECTOR ARIA DAILY TREATMENT INFORMATION Routine 04/22/2021 4:12 PM CIGARETTE INSPECTOR ARIA DAILY TREATMENT INFORMATION Routine 04/19/2021 4:08 PM CIGARETTE INSPECTOR ARIA DAILY TREATMENT INFORMATION Routine 04/18/2021 4:22 PM CIGARETTE INSPECTOR ARIA DAILY TREATMENT INFORMATION Routine 04/17/2021 4:05 PM CIGARETTE INSPECTOR ARIA DAILY TREATMENT INFORMATION Routine 04/16/2021 8:11 AM CIGARETTE INSPECTOR ARIA DAILY TREATMENT INFORMATION Routine 04/15/2021 4:17 PM CIGARETTE INSPECTOR ARIA DAILY TREATMENT INFORMATION Routine 04/12/2021 4:38 PM CIGARETTE INSPECTOR ARIA DAILY TREATMENT INFORMATION Routine 04/11/2021 4:16 PM CIGARETTE INSPECTOR ARIA DAILY TREATMENT INFORMATION Routine 04/10/2021 4:21 PM CIGARETTE INSPECTOR ARIA DAILY TREATMENT INFORMATION Routine 04/09/2021 8:42 AM CIGARETTE INSPECTOR ARIA DAILY TREATMENT INFORMATION Routine 04/08/2021 4:29 PM CIGARETTE INSPECTOR ARIA DAILY TREATMENT INFORMATION Routine 04/05/2021 3:53 PM CIGARETTE INSPECTOR ARIA DAILY TREATMENT INFORMATION Routine 04/04/2021 3:39 PM CIGARETTE INSPECTOR ARIA DAILY TREATMENT INFORMATION Routine 04/03/2021 3:57 PM CIGARETTE INSPECTOR ARIA DAILY TREATMENT INFORMATION Routine 04/02/2021 9:19 AM CIGARETTE INSPECTOR ARIA DAILY TREATMENT INFORMATION Routine 04/01/2021 4:02 PM CIGARETTE INSPECTOR ARIA COURSE COMPLETE TREATMENT INFORMATION Routine 03/28/2021 3:50 PM CIGARETTE INSPECTOR OUTSIDE MR NEURO Routine 03/25/2021 3:35 PM CIGARETTE INSPECTOR INITIAL RAD ONC TREATMENT PLANNING CT SIMULATION Routine 03/25/2021 1:52 PM CIGARETTE INSPECTOR 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 IMG US [place] OCEDURES Final Result * US Lower Extremity [...] stenosisproximal to stent. Pritesh Daniels, Ch.B., Ph.[facility]. [facility] Final Result * PET skull to [...] PROCEDURES Final R esult Performing Organization Address City/[facility]/ZIP Co de Phone Number IIMS NA * [...] PROCEDURES Final R esult Performing Organization Address [facility] Co de Phone Number II NA * [...] BLOOD ADD-ON Final Result Performing Organization Address [facility] Co de Phone Number [facility] [address] [place] [address], [facility] STMA [facility] [address] [place] [address] * Transfuse Red Blood Cells : (10/02/2023 2:52 PM CDT) Sonal Chavez APRNNBernie, M.S.N. BLOOD SAGE SFUSION ORDERABLES Final Result * Type and Screen (with Reflex Antibody ID) (10/02/2023 11:02 AM CDT) Pathologist [facility] ABORh B Neg Not applicable 10/02/2023 11:40 AM CDT STRM Antibody Screen Negative Negative 10/02/2023 11:55 AM CDT STRM Type & Screen Expiration 10/05/2023 23:59 10/02/2023 11:40 AM CDT STRM Testing Location [place] DEFAULT 10/02/2023 11:12 AM CDT STRM Blood (Blood, Venous) 10/02/2023 11:02 AM CDT 10/02/2023 11:12 AM CDT Sonal Chavez APRNN.Joshua, M.S.N. LAB BLOOD BANK TEST ORDERABLES Final Result Performing Organization Address [facility] Co de Phone Number [facility] [address] [place] [address], [facility] STRM [facility] [address] [place] [address] * Basic Metabolic Panel (10/02/2023 7:10 AM CDT) Pathologist [facility] Potassium, S 4.5 3.6 - 5.2 mmol/L [...] C.N.P., D.N.P. LAB BLOOD ADD-ON Final Result [facility] [address] [facility] [address] [place] [address] * IR IMAGING (10/01/2023 3:15 PM CDT) Anatomical Region Laterality Modality N/A Other Narrative 10/02/2023 7:07 AM CDT Performed by surgeon - see Op Note for result. Pritesh Daniels, Ch.B., Ph.D. IMG IR [place] OCEDURES Final Result * IR ENDOVASCULAR ANGIOPLASTY STENT ILIAC LOWER EXTREMITY (10/01/2023 3:15 PM CDT) Anatomical Region Laterality Modality Lower Extremity, Vascular Interventional RST LOS N/A Other Narrative 10/02/2023 7:07 AM CDT Performed by surgeon - see Op Note for result. us Pritesh Daniels, Ch.B., Ph.D. IMG IR NH OCEDURES Final Result * (ABNORMAL) ACT (Activated Clotting Time), POCT (10/01/2023 2:26 PM CDT) Only the most recent of12 resultswithin the time period is included. Activated Clotting Time, POCT 192(H) 84 - 139 sec 10/01/2023 2:30 PM CDT PCSM Blood 10/01/2023 2:26 PM CDT 10/01/2023 2:31 PM CDT us Unknown Provider LAB POCT ORDERABLES - DEVICE Fi nal Result POC RST [facility] [address] [place] [address], [facility] POC [address] [place] [address] * Airway (10/01/2023 7:47 AM CDT) Narrative [...] CT fluoroscopic guidance, two short 17 R [employer] cryoablation probes were placed within the lesion. [...] table. [facility] The soft tissue nodule was identified and correlated to the patient's most recentPET study. The patient was then prepped and draped using sterile technique. Under intermittent CTfluoroscopic guidance, two short 17 R [employer] cryoablation probes were placed within thelesion. [...] ETT location: oral VL device: glide scope [place] scope blade size: 4 Adult tube size: [...] - 12.5 sec 07/08/2022 9:51 AM CDT [facility] IN[facility] 1.0 0.9 - 1.1 07/08/2022 9:51 AM CDT [facility] Comment: ----ADDITIONAL INFORMATION---- Standard intensity warfarin therapeutic range: 2.0 to 3.0 High intensity warfarin therapeutic range: 2.5 to 3.5 Blood (Blood, Venous) 07/08/2022 9:39 AM CDT 07/08/2022 9:44 AM CDT Pritesh Tee M.D. LAB BLOOD ADD-ON Final Re sult [facility] [address] [place] [address], [facility] [address] [place] [address] * Aria Course Complete Treatment Information (03/07/2022 10:29 AM CIGARETTE INSPECTOR) Only the most recent of3 resultswithin the time period is included. Course ID 2xShoulde rSBRT BHATT ARIA Course Start Date 2 10:13 CIGARETTE INSPECTOR BHATT ARIA Course End Date 2 13:07 CIGARETTE INSPECTOR BHATT ARIA First Treatment Date 2 13:26 CIGARETTE INSPECTOR BHATT ARIA Last Treatment Date 2 10:29 CIGARETTE INSPECTOR BHATT ARIA Treatment Elapsed Days 4 BHATT ARIA Reference Point [id number] BHATT ARIA Dosage Given to Date cGy 3000 BHATT ARIA Plan ID [id number] BHATT ARIA Fractions Treated to Date 3 BHATT ARIA Planned Total Fractions 3 BHATT ARIA Prescribed Dose Per Fraction 1000 BHATT ARIA Prescription Dose in cGy 3000 BHATT ARIA Plan Primary Reference Point [id number] BHATT ARIA 03/07/2022 10:2 9 AM CIGARETTE INSPECTOR us Provider Not In System RADIATION ONCOLOGY ORDERA BLES Final Result BHATT ARIA na * Aria Daily Treatment Information (03/07/2022 10:29 AM CIGARETTE INSPECTOR) Only the most recent of33 resultswithin the time period is included. Course ID 2xShoulde rSBRT BHATT ARIA Course Start Date 2 10:13 CIGARETTE INSPECTOR BHATT ARIA First Treatment Date 2 13:26 CIGARETTE INSPECTOR BHATT ARIA Last Treatment Date 2 10:29 CIGARETTE INSPECTOR BHATT ARIA Treatment Elapsed Days 4 BHATT ARIA Reference Point [id number] BHATT ARIA Dosage Given to Date cGy 3000 BHATT ARIA Session Dosage Given 1000 BHATT ARIA Plan ID [id number] BHATT ARIA Fractions Treated to Date 3 BHATT ARIA Planned Total Fractions 3 BHATT ARIA Prescribed Dose Per Fraction 1000 BHATT ARIA Prescription Dose in cGy 3000 BHATT ARIA Plan Primary Reference Point [id number] BHATT ARIA 03/07/2022 10:2 9 AM CIGARETTE INSPECTOR us Provider Not In System RADIATION ONCOLOGY ORDERA BLES Final Result [facility] na * Initial Rad Onc Treatment Planning CT Simulation (02/24/2022 10:00 AM CIGARETTE INSPECTOR) Only the most recent of2 resultswithin the time period is included. Narrative BHATT ARIA - 02/24/2022 10:00 AM CIGARETTE INSPECTOR Olamide Paul, RTT 02/24/2022 10:24 AM Initial Rad Onc Treatment Planning CT Simulation Performed by: Whit Meade M.D. Authorized by: Whit Meade M.D. us Whit Meade M.D. RADIATION ONCOLOGY ORDERA BLES Final Result MILLER HILTON na * NH ARTL CATH/CNULA MONITOR PERC, LDA ANE ARTERIAL LINE INSERTION (10/23/2021 3:02 PM CDT) Narrative Heavenly Barber APRN, JATIN - 10/23/2021 3:02 PM CDT Heavenly Barber APRN, CIGAR HEAD PUNCHER 10/23/2021 3:02 PM Invasive Catheter Date/Time: 10/23/2021 3:02 PM Performed by: Demetrice Christina APRN, CRNA, DNAP Authorized by: Demetrice Christina APRN, CRNA, DNAP Location: OR PROCEDURE [...] CT fluoroscopic guidance an 11-gauge 12 cm In [employer] bone access needle was used to make a fighter pilot hole through the transverse process and costovertebral junction. A total of three cryoablation probes were placed, vertically stacked along the left T2 throughT3-T4 paraspinal spaces, including two variable probes set to 4.0 and a PERC-17 R [employer] cryoablation probe. The probes were tested outside [...] benefits, alternatives and procedure of a left [id number] paraspinal cryoablation were discussed with the patient [...] intermittent CTfluoroscopic guidance an 11-gauge 12 cm In [employer] bone access needle was used to make a fighter pilot holethrough the transverse process and costovertebral junction. A total of three cryoablation probeswere placed, vertically stacked along the left T2 throughT3-T4 paraspinal spaces, including twovariable probes set to 4.0 and a PERC-17 R [employer] cryoablation probe. The probes were tested outsideof [...] Monitoring Final Report Study Number: 1 EMG Biscuit Machine Operator: Cem Pan. [phone] or [phone] Referred by: PRITESH TEE (127 or [phone]) Referred for: Referral Code: 1975 RX: 1975 [...] the submitted billing. Pawan Pan (127 or [phone])/[facility] Surgery Staff Minutes Start-DateTime End-DateTime Biscuit Machine Operator 130 10/23/2021 12:32 PM CIGARETTE INSPECTOR 10/23/2021 14:42 PM CIGARETTE INSPECTOR Thread Puller 130 10/23/2021 12:32 PM CIGARETTE INSPECTOR 10/23/2021 14:42 PM CIGARETTE INSPECTOR This interpretation has been electronically signed: Cem Pan, DO, PhD at 10/23/2021 2:45:22 PM CDT Procedure Note Chin Pan D.O., Ph.D. - 10/23/2021 23-Oct-2021 Intraoperative Monitoring FinalReport Study Number: 1 EMG Biscuit Machine Operator: Cem Pan. [phone] or [phone] Referred by: PRITESH TEE ([phone] or [phone]) Referred for: Referral Code: 1975 RX: 1976 [...] the submitted billing. Pawan Pan (127 or [phone])/[facility] Surgery Staff Minutes Start-DateTime End-DateTime Biscuit Machine Operator 130 10/23/2021 12:32 PM CIGARETTE INSPECTOR 10/23/2021 14:42 PM CIGARETTE INSPECTOR Thread Puller 130 10/23/2021 12:32 PM CIGARETTE INSPECTOR 10/23/2021 14:42 PM CIGARETTE INSPECTOR This interpretation has been electronically signed: Cem Pan DO, PhD at 10/23/2021 2:45:22 PM CDT us Pritesh Tee M.D. NEUROLOGY ORDERABLES Edit ed Result - Final [facility] EMG * Creatinine, POCT (10/23/2021 10:52 AM CDT) Creatinine, POCT, B 0.8 0.7 - 1.4 mg/dL 10/23/2021 10:57 AM CDT PCSM Comment: ----ADDITIONAL INFORMATION---- Performed at the Point of Care eGFR-Black/Afric an Kyrgyz, POCT >90 >=60 mL/min/BSA 10/23/2021 10:58 AM CDT PCSM Comment: ----ADDITIONAL INFORMATION---- Estimated GFR calculated using the 2009 CKD_EPI creatinine equation. eGFR Non-Black/Aissatou n Kyrgyz, POCT >90 >=60 mL/min/BSA 10/23/2021 10:58 AM CDT PCSM Comment: ----ADDITIONAL INFORMATION---- Estimated GFR calculated using the 2009 CKD_EPI creatinine equation. Blood 10/23/2021 10:5 2 AM CDT 10/23/2021 10:58 AM CDT us Unknown Provider LAB POCT ORDERABLES - DEVICE Fi nal Result POC RST [facility] [address] [place] [address], [facility] POC [address] [place] [address] * SARS CoV-2 RNA, PCR, Varies Asymptomatic [...] and Drug Administration and is used per supervisor cutting and sewing room's instructions. Performance characteristics were verified by [facility] in a manner consistent with CLIA requirements. Visit the CDC website: https://www.cdc.gov/coronavirus/ for the most recent guidelines on Coronavirus testing. Fact Sheet for Healthcare Providers: https://www.fda.gov/media/265385/download Fact Sheet for Patients: https://www.fda.gov/media/184899/download Varies (Nasopharynx) 10/22/2021 9:49 AM CDT 10/22/2021 10:30 AM CDT us Pritesh Tee M.D. LAB MICROBIOLOGY - GENERA L ORDERABLES Final Result [facility] [address] [place] [address], [facility] DTL [facility] [address] [place] [address] * MR Thoracic Spine without and with [...] resultswithin the time period is included. Narrative IIGA - 08/23/2021 10:05 AM CDT This order has been created and auto-finalized to support the import of outside images. If available, original interpretation can be found on the Media Tab in Chart Review, in Document Viewer, or as an image in QREADS. If a re-interpretation or overread is required please follow defined workflow. Provider Not In System [facility] NH OCEDURES Final Result IIMS NA * CHEST W/CONTRAST-Outside CT Body (06/06/2021 10:45 AM CDT) Only the most recent of3 resultswithin the time period is included. Narrative IIGA - 06/07/2021 3:19 PM CDT This order [...] PROCEDURES Final R esult Performing Organization Address [facility] Co de Phone Number IIMS NA * (ABNORMAL) Creatinine with Estimated GFR (03/22/2021 12:47 PM CIGARETTE INSPECTOR) EXT Creatinine 0.7(A) 0.73 - 1.36 mg/dL [facility] Blood (Blood, Venous) 03/22/2021 12:47 PM CIGARETTE INSPECTOR Whit Meade M.D. LAB BLOOD ADD-ON Final Re sult Performing Organization Address [facility] de Phone Number [facility] [address] [place] [address] * XR SPINE CERVICAL 4 OR 5 VIEWS-Outside Skeletal Xray (01/09/2021 8:05 AM CDT) Only the most recent of2 resultswithin the time period is included. Narrative IIMS - 03/19/2021 9:48 AM CIGARETTE INSPECTOR This order has been created and auto-finalized to support the import of outside images. If available, original interpretation can be found on the Media Tab in Chart Review, in Document Viewer, or as an image in [employer]. If a re-interpretation or overread is required please follow defined workflow. us Provider Not In System IMG DIAGNOSTIC IMAGING NH OCEDURES Final Result Performing Organization Address [facility] de Phone Number IIMS NA Visit Diagnoses [...] Ectasia 07/14/2023 Ischemic Limb 07/14/2023 Atherosclerosis Of [place] Arteries Of Extremities With Intermittent Claudication Bilateral Legs 08/02/2023 Atherosclerosis Of [place] Arteries Of Extremities With Intermittent Claudication Bilateral Legs 08/03/2023 Aortic Ectasia 08/03/2023 Atherosclerosis Of [place] Arteries Of Extremities With Intermittent Claudication Bilateral Legs 08/03/2023 Nicotine Dependence Cigarettes 08/03/2023 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
--- OUTSIDE RECORDS SUMMARY | 2024-09-02 00:57 | XMS_ITS | Encounter Summary ---
Author Organization [facility] Address [address] [place] [address] Care Team Providers Care Armoured Corps Officer Name Role Phone Unavailable Primary Care Provider Unavailabl e Encounter Details Date Type Department Care Team (Late st Contact Info) Description 07/29/2024 Clinical Communication Department of Radiation Oncology in [place], [place] [address] [place] [id number] Whit Meade M.D. [address] [place] [address] Social History Tobacco Use Types Packs/Day Years Used Date Smoking Tobacco: Every Day Cigarettes 0.3 51.5 Started: 03/16/1973 Smokeless Tobacco: Never Alcohol Use Standard Drinks/Week Comments Yes 9 (1 standard drink = 0.6 oz pur e alcohol) 3-4 daily [facility] Utilities Answer Date Recorded In the past 12 months has [facility] [employer], gas, oil, or water [employer] threatened to shut off services in your [...] How often do you attend chur or shinto services? 1 to 4 times per year 06/19/2022 Do you belong to any clubs o r organizations such as uatsdin groups, unions, fraternal or athletic groups, or [...] and heating? Not hard at all 06/19/2022 [facility] - Occupational [...] your living situation today? I have a [facility] place to live 08/02/2023 Education Answer Date Recorded What is the highest level of school you have completed or the highest degree you have received? 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 Jacinto would like to talk to someone again as she has some questions. She is wondering if we treated as high has his pharynx and epiglottis area? She has some concerns looking at his x- rays. She said someone could call her back early next week at [phone]. documented in this encounter Plan of Treatment Not on file documented as of this encounter Visit Diagnoses Not on filedocumented in this encounter Additional Health Concerns Infection Onset Date Last Indicated Resolved Time Protective Environment 08/03/2023 08/03/2023 documented as of this encounter
--- OUTSIDE RECORDS SUMMARY | 2024-09-02 00:57 | XMS_ITS ---
Author Organization [facility] Address [address] [place] [address] Care Team Providers Care Internet Marketing Analyst Name Role Phone Unavailable Primary Care Provider [...] Fraction Dose Fractions Total Dose Plans Planned [id number] 03/03/2022 - 03/07/2022 1,000 cGy 3 / 3 3,000 cGy Reference Points Delivered [id number] 03/03/2022 - 03/07/2022 3,000 cGy * IMRT: [...] / 5 5,000 cGy Reference Points Delivered [id number] 04/01/2021 - 05/13/2021 6,000 cGy [id number] 04/15/2021 - 04/24/2021 5,000 cGy Lifetime Dose Tracking * Chemical Lifetime Dose Automatic Entry Manual Entr y Radiation 328 mGy 0 mGy 328 mGy Fluoro Time 124 minutes 0 minutes 124 minutes DAP (Gy-cm2) 91.13 Gy-cm2 0 Gy-cm2 91.13 Gy-cm2
== END 2024-09-01 14:06 | disposition home or self-care (01) ==
LOC: RAD 14:05
PROVIDERS: PCP Family Medicine; Visit Provider Internal Medicine Hematology & Oncology
DX: C34.12 Malignant neoplasm of upper lobe, left bronchus or lung (principal)
CPT/HCPCS: 78815; A9552

== ENCOUNTER 2024-10-26 09:00 | Outpatient (RCR) | payer MEDICARE, SELFPAY ==
[2024-05-31 09:44] LABS: Hematocrit* 27.2 % (37.0-53.0); Hemoglobin* 8.2 gm/dL (13.5-17.5); Immature Granulocytes Abs Auto 0.02 K/uL (0.00-0.30); Immature Granulocytes Pct Auto 0.3 %; Mean Corpuscular HGB Conc 30 gm/dL (32-36); Mean Corpuscular Hemoglobin 28 pg (26-34); Mean Corpuscular Volume 94 fL (80-100); RDW Coefficient of Variation % 18.7 % (11.5-15.5); Red Blood Count* 2.90 m/uL (4.30-5.90); White Blood Count* 6.93 K/uL (4.50-11.00)
[2024-05-31 09:47] LABS: Lymphocytes Absolute Auto 1.10 K/uL (0.90-2.90); Slide Review Reflex No
[2024-05-31 10:03] LABS: Chloride* 101 mmol/L (96-114)
[2024-05-31 10:04] LABS: Albumin* 4.0 g/dL (3.3-5.0); Potassium* 3.7 mmol/L (3.6-5.1); Sodium* 134 mmol/L (135-149)
[2024-05-31 10:06] LABS: Anion Gap 9 mEq/L (7-15); Bilirubin Total* 0.3 mg/dL (0.1-1.5); Blood Urea Nitrogen* 15 mg/dL (7-30); Carbon Dioxide* 24 mmol/L (20-32); Creatinine* 1.4 mg/dL (0.5-1.5); Est. Creatinine Clearance* 48.61; Estimated Glomerular Filt Rate 54 ml/min; Total Protein* 6.4 g/dL (6.0-8.3)
[2024-05-31 10:07] LABS: Alanine Aminotransferase* 28 U/L (4-50); Alkaline Phosphatase* 110 U/L (40-150); Aspartate Amino Transferase* 25 U/L (12-35); Calcium* 9.1 mg/dL (8.4-10.6); Glucose* 126 mg/dL (60-115)
[2024-05-31 10:12] VITALS: BP 135/75; RESP 16; TEMP 36.2; O2SAT 97
[2024-05-31] MEDS: [UNRECOGNIZED DRUG - OTHER] IV (11:33)
[2024-05-31] MEDS: PEMETREXED IV (11:33)
[2024-05-31] MEDS: TUBING SECONDARY IV (11:33)
[2024-05-31] MEDS: SODIUM CHLORIDE 0.9 % (FLUSH) 10 ML SYRINGE IVF (11:55)
[2024-05-31] MEDS: HEPARIN 500 UNIT/5 ML SYRINGE IVF (11:55)
[2024-06-06 10:21] VITALS: BP 119/68; PULSE 83; RESP 16; TEMP 35.9; O2SAT 97
[2024-06-06 10:36] LABS: Hematocrit* 25.3 % (37.0-53.0); Immature Granulocytes Pct Auto 0.3 %; Mean Corpuscular HGB Conc 30 gm/dL (32-36); Mean Corpuscular Hemoglobin 28 pg (26-34); Mean Corpuscular Volume 92 fL (80-100); RDW Coefficient of Variation % 18.0 % (11.5-15.5); Red Blood Count* 2.74 m/uL (4.30-5.90); White Blood Count* 3.17 K/uL (4.50-11.00)
[2024-06-06 11:01] LABS: Albumin* 3.9 g/dL (3.3-5.0); Chloride* 101 mmol/L (96-114); Sodium* 134 mmol/L (135-149)
[2024-06-06 11:02] LABS: Potassium* 3.8 mmol/L (3.6-5.1)
[2024-06-06 11:04] LABS: Alanine Aminotransferase* 60 U/L (4-50); Alkaline Phosphatase* 93 U/L (40-150); Anion Gap 10 mEq/L (7-15); Aspartate Amino Transferase* 52 U/L (12-35); Bilirubin Total* 0.5 mg/dL (0.1-1.5); Blood Urea Nitrogen* 21 mg/dL (7-30); Carbon Dioxide* 23 mmol/L (20-32); Creatinine* 1.0 mg/dL (0.5-1.5); Est. Creatinine Clearance* 67.43; Estimated Glomerular Filt Rate 81 ml/min; Total Protein* 6.3 g/dL (6.0-8.3)
[2024-06-06 11:05] LABS: Calcium* 9.3 mg/dL (8.4-10.6); Glucose* 113 mg/dL (60-115)
[2024-06-06 11:14] LABS: Immature Granulocytes Abs Auto 0.00 K/uL (0.00-0.30)
[2024-06-06 11:15] LABS: Hemoglobin* 7.6 gm/dL (13.5-17.5); Lymphocytes Absolute Auto 0.60 K/uL (0.90-2.90); Slide Review Reflex Yes
[2024-06-06 12:09] LABS: Slide Review Acceptable Review (Acceptable)
[2024-06-06 13:39] LABS: Appearance Urine Clear (Clear)
[2024-06-06] MEDS: SODIUM CHLORIDE 0.9 % (FLUSH) 10 ML SYRINGE IVF (14:44)
[2024-06-07 11:45] VITALS: BP 122/67; PULSE 86; RESP 18; TEMP 36.9; O2SAT 95
[2024-06-07 12:08] VITALS: BP 129/74; PULSE 80; RESP 18; TEMP 37.1; O2SAT 94
[2024-06-07 12:34] VITALS: BP 124/70; PULSE 84; RESP 18; TEMP 36.9; O2SAT 92
[2024-06-07 13:04] VITALS: BP 133/72; PULSE 75; RESP 16; TEMP 36.3; O2SAT 94
[2024-06-07 13:40] VITALS: BP 158/76; PULSE 74; RESP 16; TEMP 36.9; O2SAT 92
[2024-06-07 14:51] VITALS: BP 161/75; PULSE 74; RESP 16; TEMP 36.2; O2SAT 94
[2024-06-07] MEDS: HEPARIN 500 UNIT/5 ML SYRINGE IVF (14:55)
[2024-06-07] MEDS: SODIUM CHLORIDE 0.9 % (FLUSH) 10 ML SYRINGE IVF (14:55)
--- NOTE | 2024-06-07 16:16 | ONC.NURNOTE ---
Speech therapy referral faxed [facility] [phone].
[2024-06-08 22:25] LABS: Cortisol, Serum 14.6 ug/dL
[2024-06-13 08:18] VITALS: BP 106/64; PULSE 83; RESP 15; TEMP 36.8; O2SAT 96
[2024-06-13 08:41] LABS: Hematocrit* 26.6 % (37.0-53.0); Hemoglobin* 8.0 gm/dL (13.5-17.5); Immature Granulocytes Pct Auto 0.4 %; Mean Corpuscular HGB Conc 30 gm/dL (32-36); Mean Corpuscular Hemoglobin 27 pg (26-34); Mean Corpuscular Volume 91 fL (80-100); RDW Coefficient of Variation % 18.5 % (11.5-15.5); Red Blood Count* 2.94 m/uL (4.30-5.90); White Blood Count* 2.53 K/uL (4.50-11.00)
[2024-06-13 08:45] LABS: Immature Granulocytes Abs Auto 0.00 K/uL (0.00-0.30); Lymphocytes Absolute Auto 0.70 K/uL (0.90-2.90); Slide Review Reflex No
[2024-06-13 08:59] LABS: Chloride* 102 mmol/L (96-114)
[2024-06-13 09:00] LABS: Albumin* 3.8 g/dL (3.3-5.0); Potassium* 4.0 mmol/L (3.6-5.1); Sodium* 136 mmol/L (135-149)
[2024-06-13 09:02] LABS: Blood Urea Nitrogen* 15 mg/dL (7-30); Creatinine* 1.2 mg/dL (0.5-1.5); Est. Creatinine Clearance* 57.07; Estimated Glomerular Filt Rate 65 ml/min
[2024-06-13 09:03] LABS: Alanine Aminotransferase* 70 U/L (4-50); Alkaline Phosphatase* 117 U/L (40-150); Anion Gap 8 mEq/L (7-15); Aspartate Amino Transferase* 57 U/L (12-35); Bilirubin Total* 0.4 mg/dL (0.1-1.5); Calcium* 9.1 mg/dL (8.4-10.6); Carbon Dioxide* 26 mmol/L (20-32); Glucose* 138 mg/dL (60-115); Total Protein* 6.3 g/dL (6.0-8.3)
[2024-06-13] MEDS: SODIUM CHLORIDE 0.9 % (FLUSH) 10 ML SYRINGE IVF ×2 (10:44→11:49)
[2024-06-13] MEDS: DURVALUMAB 1,500 MG, TUBING PRIMARY 1 EACH, In-line 0.2 micron filter set 1 EACH in 0.9... 280 MG IVPB (10:45)
[2024-06-13] MEDS: HEPARIN 500 UNIT/5 ML SYRINGE IVF (11:49)
--- NOTE | 2024-06-14 09:55 | W.ED.EKGINT ---
EKG Interpretation EKG Data Attestation: I personally reviewed and interpreted this ECG as follows: Date of EKG Tracin06/07/24 EKG interpretation date: 06/14/24 Prior EKG tracings: available for review Interpretation: EKG is reviewed from above date. Indication for review is progressive weakness. Previous EKG is for comparison from 02/16/2024. Rhythm remains sinus, incomplete right bundle aliza block is noted, unchanged, QT has improved from 444 to 428 milliseconds, QTC has slightly lengthened from [address] and remainder of EKG remains unchanged, Impression: Abnormal EKG with QT and QTC prolongation, normal sinus rhythm incomplete right bundle block remains unchanged.
--- NOTE | 2024-06-17 11:03 | ONC.NURNOTE ---
Voicemail left from Swapna-pt coordinator at [facility] that she clarified that pt does not need to go off Tramadol and rosuvastatin. Napkin Machine Operator called and left message with Swapna at [facility] that she should call pt with this information.
[2024-06-21 09:57] VITALS: BP 146/72; PULSE 83; RESP 19; TEMP 36.4; O2SAT 97
[2024-06-21 10:42] LABS: Hematocrit* 27.5 % (37.0-53.0); Hemoglobin* 8.3 gm/dL (13.5-17.5); Immature Granulocytes Abs Auto 0.02 K/uL (0.00-0.30); Immature Granulocytes Pct Auto 0.4 %; Lymphocytes Absolute Auto 1.36 K/uL (0.90-2.90); Mean Corpuscular HGB Conc 30 gm/dL (32-36); Mean Corpuscular Hemoglobin 28 pg (26-34); Mean Corpuscular Volume 94 fL (80-100); RDW Coefficient of Variation % 21.1 % (11.5-15.5); Red Blood Count* 2.94 m/uL (4.30-5.90); White Blood Count* 5.70 K/uL (4.50-11.00)
[2024-06-21 10:45] LABS: Slide Review Reflex Yes
[2024-06-21 11:00] LABS: Chloride* 106 mmol/L (96-114)
[2024-06-21 11:01] LABS: Albumin* 3.8 g/dL (3.3-5.0); Potassium* 4.1 mmol/L (3.6-5.1); Sodium* 137 mmol/L (135-149)
[2024-06-21 11:03] LABS: Blood Urea Nitrogen* 13 mg/dL (7-30); Creatinine* 1.0 mg/dL (0.5-1.5); Est. Creatinine Clearance* 68.40; Estimated Glomerular Filt Rate 81 ml/min
[2024-06-21 11:04] LABS: Alanine Aminotransferase* 43 U/L (4-50); Alkaline Phosphatase* 113 U/L (40-150); Anion Gap 6 mEq/L (7-15); Aspartate Amino Transferase* 39 U/L (12-35); Bilirubin Total* 0.4 mg/dL (0.1-1.5); Calcium* 9.2 mg/dL (8.4-10.6); Carbon Dioxide* 25 mmol/L (20-32); Glucose* 90 mg/dL (60-115); Total Protein* 6.2 g/dL (6.0-8.3)
[2024-06-21] MEDS: DEXAMETHASONE 10 MG/ML PF IVP (11:27)
[2024-06-21] MEDS: SODIUM CHLORIDE 0.9 % (FLUSH) 10 ML SYRINGE IVF (11:27)
[2024-06-21] MEDS: HEPARIN 500 UNIT/5 ML SYRINGE IVF (11:27)
[2024-06-21 11:35] LABS: Slide Review Acceptable Review (Acceptable)
[2024-06-21] MEDS: [UNRECOGNIZED DRUG - OTHER] IV (12:01)
[2024-06-21] MEDS: TUBING SECONDARY IV (12:01)
[2024-06-21] MEDS: PEMETREXED IV (12:01)
[2024-07-04] VITALS (12 sets, daily range): BP systolic 149–177; BP diastolic 54–89; PULSE 69–87; RESP 18–20; TEMP 35.7–36.8; O2SAT 94–100
[2024-07-04] MEDS: SODIUM CHLORIDE 0.9 % (FLUSH) 10 ML SYRINGE IVF (08:55)
[2024-07-04] MEDS: HEPARIN 500 UNIT/5 ML SYRINGE IVF (08:55)
[2024-07-04 09:04] LABS: Hematocrit* 22.6 % (37.0-53.0); Immature Granulocytes Pct Auto 0.6 %; Mean Corpuscular HGB Conc 30 gm/dL (32-36); Mean Corpuscular Hemoglobin 28 pg (26-34); Mean Corpuscular Volume 93 fL (80-100); RDW Coefficient of Variation % 20.8 % (11.5-15.5); Red Blood Count* 2.44 m/uL (4.30-5.90); White Blood Count* 3.16 K/uL (4.50-11.00)
[2024-07-04 09:07] LABS: Hemoglobin* 6.8 gm/dL (13.5-17.5); Immature Granulocytes Abs Auto 0.00 K/uL (0.00-0.30); Lymphocytes Absolute Auto 0.80 K/uL (0.90-2.90); Slide Review Reflex No
[2024-07-04 09:16] LABS: Albumin* 4.0 g/dL (3.3-5.0); Chloride* 103 mmol/L (96-114); Potassium* 4.3 mmol/L (3.6-5.1); Sodium* 134 mmol/L (135-149)
[2024-07-04 09:18] LABS: Blood Urea Nitrogen* 19 mg/dL (7-30); Creatinine* 1.3 mg/dL (0.5-1.5); Est. Creatinine Clearance* 52.61; Estimated Glomerular Filt Rate 59 ml/min
[2024-07-04 09:19] LABS: Alanine Aminotransferase* 101 U/L (4-50); Alkaline Phosphatase* 127 U/L (40-150); Anion Gap 8 mEq/L (7-15); Aspartate Amino Transferase* 65 U/L (12-35); Bilirubin Total* 0.4 mg/dL (0.1-1.5); Calcium* 9.4 mg/dL (8.4-10.6); Carbon Dioxide* 23 mmol/L (20-32); Glucose* 103 mg/dL (60-115); Total Protein* 6.5 g/dL (6.0-8.3)
[2024-07-04] MEDS: FUROSEMIDE 10 MG/ML inj 20 MG IVP (13:30)
--- NOTE | 2024-07-04 16:37 | ONC.NURNOTE ---
BP on pt 1 hr after transfusion 04/17 completed. BP 172/80; consistent with 1 hr prior. Pt received furosemide with transfusion. Recommended pt check BP at home tonight and in the morning; reviewed to call PCP to inquire about restarting BP meds tomorrow morning and to go to ED if suddenly worsens tonight.
[2024-07-11 08:59] LABS: Hematocrit* 31.0 % (37.0-53.0); Hemoglobin* 9.3 gm/dL (13.5-17.5); Immature Granulocytes Abs Auto 0.02 K/uL (0.00-0.30); Immature Granulocytes Pct Auto 0.3 %; Mean Corpuscular HGB Conc 30 gm/dL (32-36); Mean Corpuscular Hemoglobin 27 pg (26-34); Mean Corpuscular Volume 91 fL (80-100); RDW Coefficient of Variation % 23.8 % (11.5-15.5); Red Blood Count* 3.40 m/uL (4.30-5.90); White Blood Count* 7.18 K/uL (4.50-11.00)
[2024-07-11 09:02] LABS: Lymphocytes Absolute Auto 1.10 K/uL (0.90-2.90); Slide Review Reflex No
[2024-07-11 09:12] LABS: Chloride* 105 mmol/L (96-114)
[2024-07-11 09:13] LABS: Albumin* 3.7 g/dL (3.3-5.0); Potassium* 4.1 mmol/L (3.6-5.1); Sodium* 137 mmol/L (135-149)
[2024-07-11 09:15] LABS: Alanine Aminotransferase* 36 U/L (4-50); Anion Gap 7 mEq/L (7-15); Aspartate Amino Transferase* 33 U/L (12-35); Bilirubin Total* 0.3 mg/dL (0.1-1.5); Blood Urea Nitrogen* 12 mg/dL (7-30); Carbon Dioxide* 25 mmol/L (20-32); Creatinine* 1.1 mg/dL (0.5-1.5); Est. Creatinine Clearance* 61.34; Estimated Glomerular Filt Rate 72 ml/min
[2024-07-11 09:16] LABS: Alkaline Phosphatase* 119 U/L (40-150); Calcium* 9.4 mg/dL (8.4-10.6); Glucose* 108 mg/dL (60-115); Total Protein* 6.3 g/dL (6.0-8.3)
[2024-07-11] MEDS: HEPARIN 500 UNIT/5 ML SYRINGE IVF (09:59)
[2024-07-11] MEDS: SODIUM CHLORIDE 0.9 % (FLUSH) 10 ML SYRINGE IVF (09:59)
--- NOTE | 2024-07-13 08:18 | ONC.NURNOTE ---
Received call from nurse Carmencita with [facility]. Pt is scheduled for small bowel enteroscopy 07/26; recommendations for pt to hold Eliquis for 2 days prior to procedure (07/24, 07/25) and are requesting Dr. Dudley order this. If Dr. Dudley wants him to hold Eliquis for less than 2 days, they are requesting a Creatinine level. Will have Dr. Dudley review when next in office. Confidential [facility] Nurse Line: p [phone]
[2024-07-13 10:17] VITALS: BP 143/81; PULSE 87; RESP 20; TEMP 35; O2SAT 97
[2024-07-13] MEDS: DURVALUMAB 1,500 MG, TUBING PRIMARY 1 EACH, In-line 0.2 micron filter set 1 EACH in 0.9... 280 MG IVPB (11:18)
[2024-07-13] MEDS: DEXAMETHASONE 10 MG/ML PF IVP (12:25)
[2024-07-13] MEDS: [UNRECOGNIZED DRUG - OTHER] IV (12:33)
[2024-07-13] MEDS: PEMETREXED IV (12:33)
[2024-07-13] MEDS: TUBING SECONDARY IV (12:33)
[2024-08-01 08:33] LABS: Hematocrit* 29.6 % (37.0-53.0); Hemoglobin* 9.0 gm/dL (13.5-17.5); Immature Granulocytes Abs Auto 0.01 K/uL (0.00-0.30); Immature Granulocytes Pct Auto 0.1 %; Mean Corpuscular HGB Conc 30 gm/dL (32-36); Mean Corpuscular Hemoglobin 28 pg (26-34); Mean Corpuscular Volume 93 fL (80-100); RDW Coefficient of Variation % 24.7 % (11.5-15.5); Red Blood Count* 3.19 m/uL (4.30-5.90); White Blood Count* 6.90 K/uL (4.50-11.00)
[2024-08-01 08:35] LABS: Lymphocytes Absolute Auto 1.20 K/uL (0.90-2.90); Slide Review Reflex No
[2024-08-01 08:42] LABS: Albumin* 3.9 g/dL (3.3-5.0); Chloride* 106 mmol/L (96-114); Sodium* 138 mmol/L (135-149)
[2024-08-01 08:43] LABS: Potassium* 3.8 mmol/L (3.6-5.1)
[2024-08-01 08:45] LABS: Alanine Aminotransferase* 26 U/L (4-50); Anion Gap 7 mEq/L (7-15); Aspartate Amino Transferase* 29 U/L (12-35); Blood Urea Nitrogen* 14 mg/dL (7-30); Carbon Dioxide* 25 mmol/L (20-32); Creatinine* 1.2 mg/dL (0.5-1.5); Est. Creatinine Clearance* 57.11; Estimated Glomerular Filt Rate 65 ml/min
[2024-08-01 08:46] LABS: Alkaline Phosphatase* 114 U/L (40-150); Bilirubin Total* 0.4 mg/dL (0.1-1.5); Calcium* 9.3 mg/dL (8.4-10.6); Glucose* 126 mg/dL (60-115); Total Protein* 6.4 g/dL (6.0-8.3)
[2024-08-02 08:26] VITALS: BP 125/74; PULSE 79; RESP 18; TEMP 36.7; O2SAT 96
[2024-08-02] MEDS: SODIUM CHLORIDE 0.9 % (FLUSH) 10 ML SYRINGE IVF ×2 (08:48→09:28)
[2024-08-02] MEDS: DEXAMETHASONE 10 MG/ML PF IVP (09:00)
[2024-08-02] MEDS: PEMETREXED IV (09:12)
[2024-08-02] MEDS: [UNRECOGNIZED DRUG - OTHER] IV (09:12)
[2024-08-02] MEDS: TUBING SECONDARY IV (09:12)
[2024-08-02] MEDS: HEPARIN 500 UNIT/5 ML SYRINGE IVF (09:28)
[2024-08-09 08:28] VITALS: BP 124/73; PULSE 79; RESP 15; TEMP 36.3; O2SAT 99
[2024-08-09 08:58] LABS: Hematocrit* 25.8 % (37.0-53.0); Hemoglobin* 8.0 gm/dL (13.5-17.5); Immature Granulocytes Pct Auto 1.0 %; Mean Corpuscular HGB Conc 31 gm/dL (32-36); Mean Corpuscular Hemoglobin 29 pg (26-34); Mean Corpuscular Volume 93 fL (80-100); RDW Coefficient of Variation % 23.1 % (11.5-15.5); Red Blood Count* 2.77 m/uL (4.30-5.90); White Blood Count* 2.04 K/uL (4.50-11.00)
[2024-08-09 09:19] LABS: Immature Granulocytes Abs Auto 0.00 K/uL (0.00-0.30); Lymphocytes Absolute Auto 0.60 K/uL (0.90-2.90); Slide Review Reflex No
[2024-08-09 09:21] LABS: Albumin* 3.7 g/dL (3.3-5.0); Chloride* 103 mmol/L (96-114); Potassium* 4.2 mmol/L (3.6-5.1); Sodium* 134 mmol/L (135-149)
[2024-08-09 09:23] LABS: Alanine Aminotransferase* 33 U/L (4-50); Anion Gap 5 mEq/L (7-15); Aspartate Amino Transferase* 37 U/L (12-35); Blood Urea Nitrogen* 20 mg/dL (7-30); Carbon Dioxide* 26 mmol/L (20-32); Creatinine* 1.1 mg/dL (0.5-1.5); Est. Creatinine Clearance* 60.86; Estimated Glomerular Filt Rate 72 ml/min
[2024-08-09 09:24] LABS: Alkaline Phosphatase* 97 U/L (40-150); Bilirubin Total* 0.6 mg/dL (0.1-1.5); Calcium* 9.5 mg/dL (8.4-10.6); Glucose* 113 mg/dL (60-115); Total Protein* 6.3 g/dL (6.0-8.3)
[2024-08-09] MEDS: SODIUM CHLORIDE 0.9 % (FLUSH) 10 ML SYRINGE IVF ×2 (10:11→11:16)
[2024-08-09] MEDS: DURVALUMAB 1,500 MG, TUBING PRIMARY 1 EACH, In-line 0.2 micron filter set 1 EACH in 0.9... 280 MG IVPB (10:11)
[2024-08-09] MEDS: HEPARIN 500 UNIT/5 ML SYRINGE IVF (11:16)
[2024-08-23 07:48] VITALS: BP 128/72; PULSE 83; RESP 17; TEMP 36.5; O2SAT 95
[2024-08-23] MEDS: SODIUM CHLORIDE 0.9 % (FLUSH) 10 ML SYRINGE IVF ×2 (08:00→10:20)
[2024-08-23 08:11] LABS: Hematocrit* 27.6 % (37.0-53.0); Hemoglobin* 8.4 gm/dL (13.5-17.5); Immature Granulocytes Abs Auto 0.02 K/uL (0.00-0.30); Immature Granulocytes Pct Auto 0.3 %; Mean Corpuscular HGB Conc 30 gm/dL (32-36); Mean Corpuscular Hemoglobin 29 pg (26-34); Mean Corpuscular Volume 96 fL (80-100); RDW Coefficient of Variation % 24.9 % (11.5-15.5); Red Blood Count* 2.88 m/uL (4.30-5.90); White Blood Count* 6.87 K/uL (4.50-11.00)
[2024-08-23 08:15] LABS: Lymphocytes Absolute Auto 1.10 K/uL (0.90-2.90); Slide Review Reflex No
[2024-08-23 08:43] LABS: Albumin* 3.7 g/dL (3.3-5.0); Chloride* 104 mmol/L (96-114); Potassium* 4.0 mmol/L (3.6-5.1); Sodium* 135 mmol/L (135-149)
[2024-08-23 08:46] LABS: Alanine Aminotransferase* 21 U/L (4-50); Alkaline Phosphatase* 99 U/L (40-150); Anion Gap 7 mEq/L (7-15); Aspartate Amino Transferase* 28 U/L (12-35); Bilirubin Total* 0.4 mg/dL (0.1-1.5); Blood Urea Nitrogen* 17 mg/dL (7-30); Calcium* 9.3 mg/dL (8.4-10.6); Carbon Dioxide* 24 mmol/L (20-32); Creatinine* 1.4 mg/dL (0.5-1.5); Est. Creatinine Clearance* 46.90; Estimated Glomerular Filt Rate 54 ml/min; Glucose* 129 mg/dL (60-115); Total Protein* 6.2 g/dL (6.0-8.3)
[2024-08-23] MEDS: [UNRECOGNIZED DRUG - OTHER] IV (10:02)
[2024-08-23] MEDS: TUBING SECONDARY IV (10:02)
[2024-08-23] MEDS: PEMETREXED IV (10:02)
[2024-08-23] MEDS: HEPARIN 500 UNIT/5 ML SYRINGE IVF (10:20)
[2024-08-29] MEDS: SODIUM CHLORIDE 0.9 % (FLUSH) 10 ML SYRINGE IVF (11:17)
[2024-08-29] MEDS: HEPARIN 500 UNIT/5 ML SYRINGE IVF (11:18)
[2024-09-01 14:24] LABS: Hematocrit* 25.7 % (37.0-53.0); Mean Corpuscular HGB Conc 31 gm/dL (32-36); Mean Corpuscular Hemoglobin 29 pg (26-34); Mean Corpuscular Volume 94 fL (80-100); RDW Coefficient of Variation % 22.0 % (11.5-15.5); Red Blood Count* 2.75 m/uL (4.30-5.90)
[2024-09-01 14:37] LABS: Albumin* 3.7 g/dL (3.3-5.0); Chloride* 101 mmol/L (96-114); Potassium* 4.1 mmol/L (3.6-5.1); Sodium* 132 mmol/L (135-149)
[2024-09-01 14:40] LABS: Alanine Aminotransferase* 44 U/L (4-50); Alkaline Phosphatase* 110 U/L (40-150); Anion Gap 6 mEq/L (7-15); Aspartate Amino Transferase* 45 U/L (12-35); Bilirubin Total* 0.5 mg/dL (0.1-1.5); Blood Urea Nitrogen* 17 mg/dL (7-30); Calcium* 9.6 mg/dL (8.4-10.6); Carbon Dioxide* 25 mmol/L (20-32); Creatinine* 1.1 mg/dL (0.5-1.5); Est. Creatinine Clearance* 59.69; Estimated Glomerular Filt Rate 72 ml/min; Glucose* 97 mg/dL (60-115); Total Protein* 6.6 g/dL (6.0-8.3)
[2024-09-01] MEDS: SODIUM CHLORIDE 0.9 % (FLUSH) 10 ML SYRINGE IVF ×2 (15:00→15:47)
[2024-09-01 15:21] LABS: Hemoglobin* 7.9 gm/dL (13.5-17.5); Slide Review Reflex Yes; White Blood Count* 1.64 K/uL (4.50-11.00)
[2024-09-01 15:22] LABS: Slide Review Req Man Differential (Acceptable)
[2024-09-01 15:24] LABS: Immature Granulocytes Abs Auto 0.00 K/uL (0.00-0.30); Immature Granulocytes Pct Auto 0.0 %; Lymphocytes Absolute Auto 1.00 K/uL (0.90-2.90)
[2024-09-01 15:27] LABS: Neutrophils Absolute Manual 0.10 K/uL (1.70-7.00); Neutrophils Percent Manual 8.0 % (42.0-72.0); Total Cells Counted 100
[2024-09-01 15:28] LABS: Basophils Abs Manual 0.10 K/uL (0.00-0.30); Basophils Percent Manual 4.0 % (0.0-3.0); Eosinophils Absolute Manual 0.10 K/uL (0.00-0.50); Eosinophils Percent Manual 4.0 % (0.0-7.0); Lymphocytes Absolute Manual 1.00 K/uL (0.90-2.90); Lymphocytes Percent Manual 60.0 % (20.0-44.0); Monocytes Absolute Manual 0.40 K/uL (0.00-0.90); Monocytes Percent Manual 24.0 % (0-11)
[2024-09-01] MEDS: HEPARIN 500 UNIT/5 ML SYRINGE IVF (15:47)
--- NOTE | 2024-09-01 15:50 | ONC.NURNOTE ---
Pt present at [facility] for port access for PET scan and labs in preparation for next weeks Durvalumab. Pt's last Alimta infusion was 08/23/2024. See lab results. Discussed with Lori Mohr APRN. Because pt is in his nehemiah, no action taken. Reinforced infection precautions with good hand hygiene, avoiding large groups, and staying away from people who have known illness. Pt verbalized understanding. Per Lori, will repeat CBC next week when he comes in for Durvalumab. CMP and TSH do NOT need to be redrawn.
[2024-09-06 08:56] LABS: Hematocrit* 25.0 % (37.0-53.0); Immature Granulocytes Pct Auto 0.3 %; Mean Corpuscular HGB Conc 31 gm/dL (32-36); Mean Corpuscular Hemoglobin 30 pg (26-34); Mean Corpuscular Volume 95 fL (80-100); RDW Coefficient of Variation % 23.1 % (11.5-15.5); Red Blood Count* 2.62 m/uL (4.30-5.90); White Blood Count* 3.65 K/uL (4.50-11.00)
[2024-09-06 09:00] LABS: Immature Granulocytes Abs Auto 0.00 K/uL (0.00-0.30); Lymphocytes Absolute Auto 1.00 K/uL (0.90-2.90)
[2024-09-06 09:02] LABS: Hemoglobin* 7.8 gm/dL (13.5-17.5)
[2024-09-06 09:03] LABS: Slide Review Reflex No
[2024-09-06 09:07] LABS: Albumin* 3.6 g/dL (3.3-5.0); Chloride* 106 mmol/L (96-114); Potassium* 4.1 mmol/L (3.6-5.1); Sodium* 136 mmol/L (135-149)
[2024-09-06 09:10] LABS: Alanine Aminotransferase* 33 U/L (4-50); Alkaline Phosphatase* 98 U/L (40-150); Aspartate Amino Transferase* 35 U/L (12-35); Bilirubin Total* 0.4 mg/dL (0.1-1.5); Blood Urea Nitrogen* 13 mg/dL (7-30); Calcium* 9.5 mg/dL (8.4-10.6); Carbon Dioxide* 23 mmol/L (20-32); Creatinine* 1.2 mg/dL (0.5-1.5); Est. Creatinine Clearance* 53.55; Estimated Glomerular Filt Rate 65 ml/min; Glucose* 134 mg/dL (60-115); Total Protein* 6.2 g/dL (6.0-8.3)
[2024-09-06 09:16] LABS: Anion Gap 7 mEq/L (7-15)
[2024-09-06] MEDS: SODIUM CHLORIDE 0.9 % (FLUSH) 10 ML SYRINGE IVF (09:45)
[2024-09-06] MEDS: HEPARIN 500 UNIT/5 ML SYRINGE IVF (09:45)
[2024-10-26] MEDS: HEPARIN 500 UNIT/5 ML SYRINGE IVF (09:52)
[2024-10-26] MEDS: SODIUM CHLORIDE 0.9 % (FLUSH) 10 ML SYRINGE IVF (09:52)
== END 2024-11-21 23:59 | disposition home or self-care (01) ==
LOC: CCIC 09:00
PROVIDERS: Clinical Nurse Specialist; Physician Assistant; PCP Family Medicine; Referring Provider Family Medicine; Visit Provider Internal Medicine Hematology & Oncology
DX: C34.12 Malignant neoplasm of upper lobe, left bronchus or lung (principal); Z79.01 Long term (current) use of anticoagulants
CPT/HCPCS: 36415; 36430; 36591; 78815; 80053; 81001; 82024; 82533; 83735; 84443; 85025; 86850; 86900; 86901; 86922; 87040; 93005; 93010; 96360; 96372; 96374; 96375; 96409; 96411; 96413; 99211; 99214; 99215; G0463; A9552; J1100; J1642; J1938; J2469; J3420; J7030; J7050; J9173; J9305; P9016

== ENCOUNTER 2025-02-04 09:48 | Emergency (ER) | payer MEDICARE, SELFPAY ==
--- OUTSIDE RECORDS SUMMARY | 2024-10-18 07:31 | XMS_ITS | Continuity of Care Document ---
Author Organization [facility] Address [address] [address] [place] [address] Phone Care Team Providers Care Drapery Inspector Name Role Phone Constance Khan MD Unavailable Unavaila ble Allergies, Adverse Reactions, Alerts Substance Reaction Status [...] by oral route every day 15 MG Jacinto-10-2025 - Active B Complex 1.7 mg-20 mg-2 mg-1.2 mg/mL sublingual liquid - Active Procedures Procedure Date cancelled appt Offic/outpt E&m Estab Mod-hi 2 25 Sm Intest Endo; W/ablat Tumor Offic/outpt E&m New Mod-hi Advance Directives Directive Yes / No Effective Date File Name No Information Encounters Encounter Description Practice Location Reason(s) For Visit Diagnoses Date Provider Providers Copied on Encounter [facility], [address] [address], [place], [place], [id number], [place] tel:[phone] [facility] No Information 5 Bill Lorenzo [address] [facility], [place] [address], [place], [place], [id number] , [place]. tel:[phone] [facility] [place], [address] [address], [place], [place], [address], [place] [phone] [facility] GI Symptoms or Concerns (chief complaint) AVM (arteriovenous malformation) of small bowel, acquired 5 Tommy Mcmahon. [address] [facility], [facility] [address], [place], [id number] , [place]. tel:[phone] Referring Provider: Referral Self, USE FOR SELF REFERRALS. Offic/outpt E&m [facility] [place], [address] [address], [place], [place], [id number], [place] tel:[phone] [facility] GI Symptoms or Concerns (chief complaint) Chronic iron deficiency anemiaAVM (arteriovenous malformation) of small bowel, acquired 5 Bill Lorenzo [address] [facility], [facility] [address], [place], [id number] , [place]. tel:[phone] Referring Provider: Referral Self, USE FOR SELF REFERRALS. [facility] [place], [address] [address], [place], [place], [address], [place] tel:[phone] [facility] No Information 5 Bill Siddiqui. [address] [facility], [facility] [address], [place], [place], [id number] , [place]. [phone] Referring Provider: Constance Khan MD, [address] [facility] [address], [place], [address]. [phone] [facility] [place], [address] [address], [place], [place], [id number], [place] [phone] [facility] Chronic iron deficiency anemiaMelena 5 Primo Pedraza. [address] [facility], [facility] [address], [place], [id number] , [place]. [phone] Offic/outpt E&m New Mod-hi [facility] [place], [address] [address], [place], [place], [address], [place] [phone] [facility] GI Symptoms or Concerns (chief complaint) MelenaChronic constipation 5 Primo Pedraza. [address] [facility], [facility] [address], [place], [address] , [place]. [phone] Referring Provider: Olivia Roger DO, [address] [place] [address], [address]. tel:[phone] [facility] [place], [address] [address], [place], [place], [address], [place] [phone] [facility] No Information 5 Desean Davies. [address] [place] [address] [address], [place], [address] , [place]. [phone] Family History Family Member Type Diagnosis Age [...] Pneumococcal conjugate vacci ne 20-valent (PCV20), polysaccharide [id number] conjugate, adjuvant, preservative free administered Note: MIIC [...] Small Bowel PillCam Appointment date/timeframe: 04/06/2024 ordered History Of Present Illness Encounter Date Complaint [...] February 2024 he had an EGD and [place] that also showed AVM small bowel. A [...] Patient was seen at anemia/GI bleed at [facility] 02/15 to 02/18/2024 (taking aspirin and [...]
--- OUTSIDE RECORDS SUMMARY | 2024-10-18 07:31 | XMS_ITS | Continuity of Care Document ---
Author Organization [facility] Address [address] [address] [place] [address] Phone Care Team Providers Care Brim Edge Trimmer Name Role Phone Constance Khan MD Unavailable [...] Diagnoses Date Provider Providers Copied on Encounter [facility] [place], [address] [address], [place], [place], [address], [place] tel:[phone] [facility] No Information [address] [facility], [place] [address], [place], [place], [id number] , [place]. tel:[phone] [facility] [place], [address] [address], [place], [place], [address], [place] [phone] [facility] GI Symptoms or Concerns (chief complaint) AVM (arteriovenous malformation) of small bowel, acquired [address] [facility], [facility] [address], [place], [id number] , [place]. tel:[phone] Referring Provider: Referral Self, USE FOR SELF REFERRALS. Offic/outpt E&m [facility] 2 [facility] [place], [address] [address], [place], [place], [address], [place] tel:[phone] [facility] GI Symptoms or Concerns (chief complaint) Chronic iron deficiency anemiaAVM (arteriovenous malformation) of small bowel, acquired [address] [facility], [facility] [address], [place], [address] , [place]. tel:[phone] Referring Provider: Referral Self, USE FOR SELF REFERRALS. [facility] [place], [address] [address], [place], [place], [address], [place] tel:[phone] [facility] No Information [address] [facility], [facility] [address], [place], [place], [id number] , [place]. [phone] Referring Provider: Constance Khan MD, [address] [facility] [address], [place], [address]. [phone] [facility] [place], [address] [address], [place], [place], [address], [place] [phone] [facility] Chronic iron deficiency anemiaMelena [address] [facility], [facility] [address], [place], [address] , [place]. [phone] Offic/outpt E&m New Mod-hi [facility] [place], [address] [address], [place], [place], [address], [place] [phone] [facility] GI Symptoms or Concerns (chief complaint) MelenaChronic constipation [address] [facility], [facility] [address], [place], [address] , [place]. [phone] Referring Provider: Olivia Roger DO, [address] [place] [address], [address]. tel:[phone] [facility] [place], [address] [address], [place], [place], [address], [place] [phone] [facility] No Information 5 Desean Davies. [address] [place] [address] [address], [address] , [place]. [phone] Family History Family Member Type Diagnosis Age [...] Pneumococcal conjugate vacci ne 20-valent (PCV20), polysaccharide [id number] conjugate, adjuvant, preservative free administered Note: MIIC [...] Registry Payers Payer name Insurance type Covered constitution party ID Authoriza tion(s) No Information Social History [...] February 2024 he had an EGD and [place] that also showed AVM small bowel. A [...] Patient was seen at anemia/GI bleed at [facility] 02/15 to 02/18/2024 (taking aspirin and [...]
[2025-02-04] VITALS (44 sets, daily range): BP systolic 110–148; BP diastolic 50–72; PULSE 54–84; RESP 14–20; TEMP 36.6–37.2; O2SAT 93–99
--- OUTSIDE RECORDS SUMMARY | 2025-02-04 09:51 | XMS_ITS | Continuity of Care Document ---
Author Organization [facility] Address [address] [place] [address] Care Team Providers Care Crowning Inspector Name Role Phone Unavailable Primary Care Provider Unavailabl e Source Comments Patient records contain information from all sites at [facility]. For routine questions regarding patient records, call [phone] during business hours, M-F 8:00 AM - 5:00 PM Central Time. Record requests for emergency care only can be directed to [phone] at any time.[facility] Encounters Date Type Department Care Team Description 08/19/2024 Clinical Communication Division of Vascular and Endovascular Surgery in [place], [place] [address] [place] [address] Pritesh Regan M.B., Ch.B., Ph.D. 07/29/2024 Clinical Communication Department of Radiation Oncology in [address] [address] Whit Meade M.D. 07/15/2024 Clinical Communication Department of Oncology in [place], [place] [address] [place] [address] Charity Dudley M.D. Order Request 07/06/2024 Clinical Communication Department of Radiation Oncology in [address] [address] Whit Meade M.D. 06/16/2024 Clinical Communication Department of Oncology in [place], [place] [address] [place] [address] Charity Dudley M.D. 05/23/2024 9:59 AM CDT - 05/23/2024 11:59 PM CDT Hospital Encounter Department of Radiology in [address] [address] Charity Dudley M.D. 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 02/29/2024 7:57 AM YOUTH DEVELOPMENT SPECIALIST - 02/29/2024 11:59 PM YOUTH DEVELOPMENT SPECIALIST Hospital Encounter Department of Radiology in [address] [address] Charity Dudley M.D. 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 11/18/2023 10:20 AM CDT - 11/18/2023 11:59 PM CDT Hospital Encounter Department of Vascular Medicine in [place], [place] [address] [place] [address] Pritesh Regan M.B., Ch.B., Ph.D. 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 Peripheral Arterial Disease (HCC) (Primary Dx) 10/22/2023 Clinical Communication Division of Vascular and Endovascular Surgery in [place], [place] [address] [place] [phone] Pritesh Regan M.B., Ch.B., Ph.D. Carotid Blockage 10/02/2023 Clinical Communication Division of Vascular and Endovascular Surgery in [place], [place] [address] [place] [address] Pritesh Regan M.B., Ch.B., Ph.D. 10/01/2023 5:38 AM CDT - 10/02/2023 5:14 PM CDT Hospital Encounter [facility], [facility], Eighth Floor [address] [place] [address] Pritesh Regan M.B., Ch.B., Ph.D. 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 Ana Bowie APRN, BLOCKER POLISHING, DNAP 10/01/2023 7:00 AM CDT - 10/01/2023 10:16 AM CDT Surgery [facility] OR [address] [place] [address] Pritesh Regan M.B., Ch.B., Ph.D. IR ENDOVASCULAR ANGIOPLASTY STENT LOWER EXTREMITY, left groin access. 09/29/2023 Clinical Communication Division of Vascular and Endovascular Surgery in [place], [place] [address] [place] [phone] Pritesh Regan M.B., Ch.B., Ph.D. Update on condition before surgery 09/15/2023 Clinical Communication Division of Vascular and Endovascular Surgery in [place], [place] [address] [place] [phone] Pritesh Regan M.B., Ch.B., Ph.D. 09/15/2023 9:40 AM CDT Virtual Visit Division of Vascular and Endovascular Surgery in [place], [place] [address] [place] [phone] Pritesh Regan M.B., Ch.B., Ph.D. 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 Phone Contact 08/16/2023 Orders Only Department of Vascular Medicine in [place], [place] [address] [place] [phone] Ren Burgess M.D. 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) (Primary Dx) 08/12/2023 4:45 PM CDT Office Visit Department of Vascular Medicine in [place], [place] [address] [place] [phone] Ren Burgess M.D. 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) (Primary Dx); Nicotine Dependence Cigarettes 08/12/2023 1:40 PM CDT Comprehensive Visit Division of Vascular and Endovascular Surgery in [place], [place] [address] [place] [address] Pritesh Regan M.B., Ch.B., Ph.D. 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) 08/12/2023 8:23 AM CDT - 08/12/2023 11:59 PM CDT Hospital Encounter Department of Radiology, [facility] in [place], [place] [address] [place] [address] Anh Tamayo M.D. 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) Discharge Disposition: Home or Self Care 08/03/2023 3:25 PM CDT - 08/03/2023 11:59 PM CDT Hospital Encounter Department of Vascular Medicine in [place], [place] [address] [place] [address] Avinash Owens M.D. 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) Discharge Disposition: Home or Self Care 08/03/2023 10:15 AM CDT Comprehensive Visit Department of Vascular Medicine in [place], [place] [address] [place] [address] Avinash Owens M.D. 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) (Primary Dx) 07/14/2023 Clinical Communication Department of Oncology in [place], [place] [address] [place] [address] Charity Dudley M.D. 07/14/2023 Orders Only Department of Oncology in [place] [address] [place] [address] Charity Dudley M.D. Ischemic Limb (Primary Dx); Aortic Ectasia (HCC) 04/21/2023 Patient Outreach Department of Oncology in [place], [place] [address] [place] [address] Jaden Villarreal M.S.N., R.N., O.C.N. Tumor Board 04/20/2023 Tumor Board Conference Department of Radiation Oncology in [place], [place] [address] [place] [phone] Whit Meade M.D. 09/30/2022 8:59 AM CDT - 09/30/2022 4:51 PM CDT Hospital Encounter Department of Radiation Oncology in [address] [address] Whit Meade M.D. 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 07/08/2022 10:15 AM CDT Anesthesia Event Department of Radiology, [facility], in [place], [place] [address] [place] [phone] Ellyn Robles APRN, CRNA Davidson, Brock C, M.D. 07/08/2022 8:47 AM CDT - 07/08/2022 1:08 PM CDT Hospital Encounter Department of Radiology, [facility], in [place], [place] [address] [place] [phone] Pritesh Tee M.D. Lange, Samantha M, APRN, JATIN, DNAP Lesion Soft Tissue Discharge Disposition: Home or Self Care 06/26/2022 2:00 PM CDT Telemedicine Preoperative Evaluation Center in [place], [place] [address] [place] [address] Pritesh Tee M.D. Annmarie Mayo, ISELA C.N.P., M.S.N. 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 Secondary Malignant Neoplasm Soft Tissue (HCC) 06/04/2022 Orders Only Department of Radiology, [place], [place] [address] [place] [phone] Sindhu Muse RTana Lesion Soft Tissue (Primary Dx) 06/02/2022 Clinical Communication Department of Radiology, [place], [place] [address] [place] [address] Sindhu Muse R.N. Pre-Ablation 06/02/2022 Orders Only Department of Radiation Oncology in [address] [address] Whit Meade M.D. Secondary Malignant Neoplasm Soft Tissue (HCC) (Primary Dx) 05/28/2022 1:10 PM CDT - 05/28/2022 5:10 PM CDT Hospital Encounter Department of Radiation Oncology in [address] [address] Whit Meade M.D. 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 03/07/2022 9:33 AM YOUTH DEVELOPMENT SPECIALIST - 03/07/2022 11:59 PM YOUTH DEVELOPMENT SPECIALIST Hospital Encounter Department of Radiation Oncology in [address] [address] Whit Meade M.D. Discharge Disposition: Home or Self Care 03/05/2022 9:35 AM YOUTH DEVELOPMENT SPECIALIST - 03/07/2022 10:22 AM YOUTH DEVELOPMENT SPECIALIST Hospital Encounter Department of Radiation Oncology in [address] [address] Whit Meade M.D. Leenstra, James L, M.D. Secondary Malignant Neoplasm Soft Tissue (HCC); Nicotine Dependence 03/05/2022 9:35 AM YOUTH DEVELOPMENT SPECIALIST - 03/05/2022 11:59 PM YOUTH DEVELOPMENT SPECIALIST Hospital Encounter Department of Radiation Oncology in [address] [address] Whit Meade M.D. Discharge Disposition: Home or Self Care 03/03/2022 12:56 PM YOUTH DEVELOPMENT SPECIALIST - 03/03/2022 11:59 PM YOUTH DEVELOPMENT SPECIALIST Hospital Encounter Department of Radiation Oncology in [address] [address] Whit Meade M.D. Discharge Disposition: Home or Self Care 02/24/2022 9:32 AM YOUTH DEVELOPMENT SPECIALIST - 02/24/2022 10:55 AM YOUTH DEVELOPMENT SPECIALIST Hospital Encounter Department of Radiation Oncology in [address] [address] Whit Meade M.D. Secondary Malignant Neoplasm Soft Tissue (HCC) 02/24/2022 8:57 AM YOUTH DEVELOPMENT SPECIALIST - 02/24/2022 9:31 AM YOUTH DEVELOPMENT SPECIALIST Hospital Encounter Department of Radiation Oncology in [address] [address] Whit Meade M.D. 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 Secondary Malignant Neoplasm Soft Tissue (HCC) (Primary Dx) 02/14/2022 3:01 PM YOUTH DEVELOPMENT SPECIALIST - 02/14/2022 5:42 PM YOUTH DEVELOPMENT SPECIALIST Hospital Encounter Department of Radiation Oncology in [address] [address] Whit Meade M.D. 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 10/23/2021 Orders Only Department of Radiology, [facility], in [place], [place] [address] [place] [address] Annmarie Motta P.A.-C., M.S. 10/23/2021 11:56 AM CDT Anesthesia Event Department of Radiology, [facility], in [place], [place] [address] [place] [address] Heavenly Barber APRN, BLOCKER POLISHING Sanna Dooley APRN, BLOCKER POLISHING 10/23/2021 9:16 AM CDT - 10/23/2021 5:04 PM CDT Hospital Encounter Department of Radiology, [facility], [address] [address] Pritesh Tee M.D. Goumbala, Matar, APRN, JATIN Lesion Bone Discharge Disposition: Home or Self Care 10/22/2021 1:00 PM CDT Comprehensive Visit Department of Radiology, [facility], in [address] [address] Annmarie Motta P.A.-C., M.S. 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 Lesion Bone Discharge Disposition: Home or Self Care 10/22/2021 6:40 AM CDT - 10/22/2021 10:13 AM CDT [facility] [place] [place] [address] [place] [address] Whit Meade M.D. Lesion Bone Discharge Disposition: Home or Self Care 10/18/2021 1:45 PM CDT Comprehensive Visit Preoperative Evaluation Center in [place], [place] [address] [place] [address] Pritesh Tee M.D. Narr, Bradly J, M.D. Preanesthetic Medical Exam (Primary Dx); Lesion Bone; Emphysema (HCC); Hypertension Essential Primary; Depression Major Recurrent (HCC) 10/17/2021 Clinical Communication Department of Radiology, [facility], [address] [address] Ibis Correa 10/15/2021 Orders Only Department of Radiology, [facility], in [address] [address] Bre Anguiano Lesion Bone (Primary Dx); Preprocedural Lab Exam; Encounter For Preprocedural Laboratory Examination (COVID-19) 10/10/2021 Patient Outreach Department of Oncology in [place], [place] [address] [place] [address] Jaden Villarreal M.S.N., R.N., O.C.N. 2021 Clinical Communication Department of Radiation Oncology in [address] [address] Whit Meade M.D. 2021 Orders Only Department of Radiology, [facility], in [address] [address] Moody Holly R.N. Lesion Bone (Primary Dx) 08/22/2021 1:53 PM CDT - 08/22/2021 4:02 PM CDT Hospital Encounter Department of Radiation Oncology in [address] [address] Whit Meade M.D. 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 05/14/2021 Refill Department of Radiation Oncology in [address] [address] Whit Meade M.D. Med Refill 05/14/2021 Refill Department of Radiation Oncology in [address] [address] Whit Meade M.D. Med Refill 05/13/2021 Documentation Department of Radiation Oncology in [address] [address] Whit Meade M.D. Radiation 05/13/2021 Refill Department of Radiation Oncology in [address] [address] Whit Meade M.D. Med Refill 05/13/2021 Orders Only Department of Radiation Oncology in [address] [address] Whit Meade M.D. 05/13/2021 1:21 PM YOUTH DEVELOPMENT SPECIALIST - 05/13/2021 11:59 PM YOUTH DEVELOPMENT SPECIALIST Hospital Encounter Department of Radiation Oncology in [address] [address] Whit Meade M.D. Discharge Disposition: Home or Self Care 05/10/2021 3:48 PM YOUTH DEVELOPMENT SPECIALIST - 05/10/2021 11:59 PM YOUTH DEVELOPMENT SPECIALIST Hospital Encounter Department of Radiation Oncology in [address] [address] Whit Meade M.D. Discharge Disposition: Home or Self Care 05/09/2021 3:49 PM YOUTH DEVELOPMENT SPECIALIST - 05/09/2021 11:59 PM YOUTH DEVELOPMENT SPECIALIST Hospital Encounter Department of Radiation Oncology in [address] [address] Whit Meade M.D. Discharge Disposition: Home or Self Care 05/08/2021 7:50 AM YOUTH DEVELOPMENT SPECIALIST - 05/08/2021 11:07 AM YOUTH DEVELOPMENT SPECIALIST Hospital Encounter Department of Radiation Oncology in [address] [address] Whit Meade M.D. 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 Discharge Disposition: Home or Self Care 05/06/2021 3:50 PM YOUTH DEVELOPMENT SPECIALIST - 05/06/2021 11:59 PM YOUTH DEVELOPMENT SPECIALIST Hospital Encounter Department of Radiation Oncology in [address] [address] Whit Meade M.D. Discharge Disposition: Home or Self Care 05/03/2021 4:01 PM YOUTH DEVELOPMENT SPECIALIST - 05/03/2021 11:59 PM YOUTH DEVELOPMENT SPECIALIST Hospital Encounter Department of Radiation Oncology in [address] [address] Whit Meade M.D. Discharge Disposition: Home or Self Care 05/02/2021 3:44 PM YOUTH DEVELOPMENT SPECIALIST - 05/02/2021 11:59 PM YOUTH DEVELOPMENT SPECIALIST Hospital Encounter Department of Radiation Oncology in [address] [address] Whit Meade M.D. Discharge Disposition: Home or Self Care 05/01/2021 3:55 PM YOUTH DEVELOPMENT SPECIALIST - 05/01/2021 11:59 PM YOUTH DEVELOPMENT SPECIALIST Hospital Encounter Department of Radiation Oncology in [address] [address] Whit Meade M.D. Discharge Disposition: Home or Self Care 04/30/2021 8:54 AM YOUTH DEVELOPMENT SPECIALIST - 04/30/2021 11:02 AM YOUTH DEVELOPMENT SPECIALIST Hospital Encounter Department of Radiation Oncology in [address] [address] Beni Mcgill M.D. 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 Discharge Disposition: Home or Self Care 04/29/2021 3:52 PM YOUTH DEVELOPMENT SPECIALIST - 04/29/2021 11:59 PM YOUTH DEVELOPMENT SPECIALIST Hospital Encounter Department of Radiation Oncology in [address] [address] Whit Meade M.D. Discharge Disposition: Home or Self Care 04/26/2021 3:48 PM YOUTH DEVELOPMENT SPECIALIST - 04/26/2021 11:59 PM YOUTH DEVELOPMENT SPECIALIST Hospital Encounter Department of Radiation Oncology in [address] [address] Whit Meade M.D. Discharge Disposition: Home or Self Care 04/25/2021 3:55 PM YOUTH DEVELOPMENT SPECIALIST - 04/25/2021 11:59 PM YOUTH DEVELOPMENT SPECIALIST Hospital Encounter Department of Radiation Oncology in [address] [address] Whit Meade M.D. Discharge Disposition: Home or Self Care 04/24/2021 3:24 PM YOUTH DEVELOPMENT SPECIALIST - 04/24/2021 11:59 PM YOUTH DEVELOPMENT SPECIALIST Hospital Encounter Department of Radiation Oncology in [address] [address] Whit Meade M.D. Discharge Disposition: Home or Self Care 04/23/2021 8:52 AM YOUTH DEVELOPMENT SPECIALIST - 04/23/2021 11:03 AM YOUTH DEVELOPMENT SPECIALIST Hospital Encounter Department of Radiation Oncology in [address] [address] Beni Mcgill M.D. 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 Discharge Disposition: Home or Self Care 04/22/2021 3:18 PM YOUTH DEVELOPMENT SPECIALIST - 04/22/2021 11:59 PM YOUTH DEVELOPMENT SPECIALIST Hospital Encounter Department of Radiation Oncology in [address] [address] Whit Meade M.D. Discharge Disposition: Home or Self Care 04/19/2021 3:25 PM YOUTH DEVELOPMENT SPECIALIST - 04/19/2021 11:59 PM YOUTH DEVELOPMENT SPECIALIST Hospital Encounter Department of Radiation Oncology in [address] [address] Whit Meade M.D. Leenstra, James L, M.D. Discharge Disposition: Home or Self Care 04/18/2021 3:55 PM YOUTH DEVELOPMENT SPECIALIST - 04/18/2021 11:59 PM YOUTH DEVELOPMENT SPECIALIST Hospital Encounter Department of Radiation Oncology in [address] [address] Whit Meade M.D. Discharge Disposition: Home or Self Care 04/17/2021 3:27 PM YOUTH DEVELOPMENT SPECIALIST - 04/17/2021 11:59 PM YOUTH DEVELOPMENT SPECIALIST Hospital Encounter Department of Radiation Oncology in [address] [address] Whit Meade M.D. Discharge Disposition: Home or Self Care 04/16/2021 7:49 AM YOUTH DEVELOPMENT SPECIALIST - 04/16/2021 10:02 AM YOUTH DEVELOPMENT SPECIALIST Hospital Encounter Department of Radiation Oncology in [address] [address] Whit Meade M.D. 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 Discharge Disposition: Home or Self Care 04/15/2021 3:21 PM YOUTH DEVELOPMENT SPECIALIST - 04/15/2021 11:59 PM YOUTH DEVELOPMENT SPECIALIST Hospital Encounter Department of Radiation Oncology in [address] [address] Whit Meade M.D. Discharge Disposition: Home or Self Care 04/12/2021 3:55 PM YOUTH DEVELOPMENT SPECIALIST - 04/12/2021 11:59 PM YOUTH DEVELOPMENT SPECIALIST Hospital Encounter Department of Radiation Oncology in [address] [address] Whit Meade M.D. Discharge Disposition: Home or Self Care 04/11/2021 3:55 PM YOUTH DEVELOPMENT SPECIALIST - 04/11/2021 11:59 PM YOUTH DEVELOPMENT SPECIALIST Hospital Encounter Department of Radiation Oncology in [address] [address] Whit Meade M.D. 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 Discharge Disposition: Home or Self Care 04/09/2021 8:23 AM YOUTH DEVELOPMENT SPECIALIST - 04/09/2021 10:33 AM YOUTH DEVELOPMENT SPECIALIST Hospital Encounter Department of Radiation Oncology in [address] [address] Beni Mcgill M.D. 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 Discharge Disposition: Home or Self Care 04/08/2021 3:56 PM YOUTH DEVELOPMENT SPECIALIST - 04/08/2021 11:59 PM YOUTH DEVELOPMENT SPECIALIST Hospital Encounter Department of Radiation Oncology in [address] [address] Whit Meade M.D. Discharge Disposition: Home or Self Care 04/05/2021 3:37 PM YOUTH DEVELOPMENT SPECIALIST - 04/05/2021 11:59 PM YOUTH DEVELOPMENT SPECIALIST Hospital Encounter Department of Radiation Oncology in [address] [address] Whit Meade M.D. Discharge Disposition: Home or Self Care 04/04/2021 3:22 PM YOUTH DEVELOPMENT SPECIALIST - 04/04/2021 11:59 PM YOUTH DEVELOPMENT SPECIALIST Hospital Encounter Department of Radiation Oncology in [address] [address] Whit Meade M.D. Discharge Disposition: Home or Self Care 04/03/2021 3:39 PM YOUTH DEVELOPMENT SPECIALIST - 04/03/2021 11:59 PM YOUTH DEVELOPMENT SPECIALIST Hospital Encounter Department of Radiation Oncology in [address] [address] Whit Meade M.D. Discharge Disposition: Home or Self Care 04/02/2021 8:58 AM YOUTH DEVELOPMENT SPECIALIST - 04/02/2021 11:53 AM YOUTH DEVELOPMENT SPECIALIST Hospital Encounter Department of Radiation Oncology in [address] [address] Whit Meade M.D. 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 Discharge Disposition: Home or Self Care 04/01/2021 Orders Only Department of Radiation Oncology in [address] [address] Whit Meade M.D. 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 Discharge Disposition: Home or Self Care 03/25/2021 1:00 PM YOUTH DEVELOPMENT SPECIALIST - 03/25/2021 4:20 PM YOUTH DEVELOPMENT SPECIALIST Hospital Encounter Department of Radiation Oncology in [address] [address] Whit Meade M.D. 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 Grieman, Kari A, R.N. Discharge Disposition: Home or Self Care 03/22/2021 1:00 PM YOUTH DEVELOPMENT SPECIALIST - 03/22/2021 1:41 PM YOUTH DEVELOPMENT SPECIALIST Hospital Encounter Department of Radiation Oncology in [place], [place] [address] [place] [address] Whit Meade M.D. Nicotine Dependence (Primary Dx); 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) 03/20/2021 Orders Only Department of Radiation Oncology in [place], [place] [address] [place] [address] Whit Meade M.D. Malignant Neoplasm Of Lung [...] mg total) by mouth daily. 30 tablet 4 Active folic acid 1 mg tablet [...] Dad Social History Smoking Status as of 02/04/2025 Tobacco Use Types Packs/Day Years Used Date Smoking Tobacco: Never Assessed [facility] Utilities Answer Date Recorded In the past 12 months has [employer], gas, oil, or water [employer] threatened to shut off services in your [...] by your partner or ex-partner? No 06/19/2022 Hunger Vital Sign Answer Date Recorded Within [...] things needed for daily living? No 08/02/2023 Housing Stability Answer Date Recorded What is your living situation today? I have a [facility] place to live 08/02/2023 Education Answer Date Recorded What is the highest level of school you have completed or the highest degree you have received? Some college, no degree 04/01/2021 Sex and Gender Information Value Date Recorded Sex Assigned at Male 04/01/2021 8:09 PM YOUTH DEVELOPMENT SPECIALIST Legal Sex Male 11:17 AM YOUTH DEVELOPMENT SPECIALIST Gender Identity Male 04/01/2021 8:09 PM YOUTH DEVELOPMENT SPECIALIST Sexual Orientation Straight 04/01/2021 8: 09 PM YOUTH DEVELOPMENT SPECIALIST Last Filed Vital Signs Vital Sign Reading [...] on file Medical Devices Implanted Type Area Internal Grinder Tender Device Identifier Shelf Expiration Date Model / Serial / Lot 6fr Angio-Seal Implanted:Qty : 1 on 10/01/2023 by Pritesh Regan M.B., Ch.B., Ph.D. at [facility] Other Unknown [id number] / / [id number] Description:ANGLE-SEAL 8fr. Angio-Seal Implanted:Qty : 1 on 10/01/2023 by Pritesh Regan M.B., Ch.B., Ph.D. at [facility] Other Unknown [id number] / / [id number] Description:ANGIO-SEAL VENDO R Stnt Viabahn 018 [id number] - [id number] - [id number] Implanted:Qty : 1 on 10/01/2023 by Pritesh Regan M.B., Ch.B., Ph.D. at [facility] Vascular Stent Right: Leg [place] 03/26/2025 [id number] / [id number] / Stnt Viabahn 018 [id number] - [id number] - [id number] Implanted:Qty : 1 on 10/01/2023 by Pritesh Regan M.B., Ch.B., Ph.D. at [facility] Vascular Stent Right: Leg [place] 06/09/2025 [id number] / [id number] / Stnt Innova Otw [id number] - [id number] Implanted:Qty : 1 on 10/01/2023 by Pritesh Regan M.B., Ch.B., Ph.D. at [facility] Vascular Stent Right: Leg [employer] 09/11/2027 [id number] / / [id number] [facility] Viabahn [id number] - [id number] - [id number] Implanted:Qty : 1 on 10/01/2023 by Pritesh Regan M.B., Ch.B., Ph.D. at [facility] Vascular Stent Right: Arterial [place] 05/31/2026 [id number] / [id number] / Description:ILIAC Procedures Procedure Name Priority Date/Time Associated Diagnosis Comments OUTSIDE NM PET Routine 09/01/2024 3:20 PM CDT OUTSIDE MR NEURO Routine 08/29/2024 10:35 AM CDT OUTSIDE MR NEURO Routine 05/27/2024 6:[address] SKULL TO THIGH RAD - Routine (most inpatients and all outpatients) 05/23/2024 11:48 AM CDT 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) PET CT SKULL TO THIGH RAD - Routine (most inpatients and all outpatients) 02/29/2024 9:42 AM YOUTH DEVELOPMENT SPECIALIST Malignant Neoplasm Of Lung Upper Lobe Or [...] Obliterans Lower Extremity With Claudication (HCC) OUTSIDE NM PET Routine 11/12/2023 3:00 PM CDT OUTSIDE [...] outpatients) 08/12/2023 9:46 AM CDT 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) OUTSIDE NM PET Routine 08/06/2023 6:10 PM CDT LOWER EXTREMITY ARTERIAL (BRENDA) - EXERCISE (CLAUDICATION) Routine 08/03/2023 4:29 PM CDT 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) OUTSIDE NM PET Routine 04/16/2023 3:20 PM YOUTH DEVELOPMENT SPECIALIST OUTSIDE NM PET Routine 01/22/2023 3:05 PM YOUTH DEVELOPMENT SPECIALIST OUTSIDE MR NEURO Routine 09/19/2022 2:45 PM [...] OUTSIDE NM PET Routine 05/15/2022 2:10 PM YOUTH DEVELOPMENT SPECIALIST ARIA COURSE COMPLETE TREATMENT INFORMATION Routine 03/07/2022 10:29 AM YOUTH DEVELOPMENT SPECIALIST ARIA DAILY TREATMENT INFORMATION Routine 03/07/2022 10:29 AM YOUTH DEVELOPMENT SPECIALIST ARIA DAILY TREATMENT INFORMATION Routine 03/05/2022 10:18 AM YOUTH DEVELOPMENT SPECIALIST ARIA DAILY TREATMENT INFORMATION Routine 03/03/2022 1:28 PM YOUTH DEVELOPMENT SPECIALIST INITIAL RAD ONC TREATMENT PLANNING CT SIMULATION Routine 02/24/2022 10:00 AM YOUTH DEVELOPMENT SPECIALIST Secondary Malignant Neoplasm Soft Tissue (HCC) OUTSIDE US NEURO Routine 02/11/2022 10:30 AM YOUTH DEVELOPMENT SPECIALIST OUTSIDE NM PET Routine 01/23/2022 3:30 PM YOUTH DEVELOPMENT SPECIALIST OUTSIDE MR NEURO Routine 01/20/2022 2:30 PM YOUTH DEVELOPMENT SPECIALIST LDA ANE ARTERIAL LINE INSERTION Routine 10/23/2021 3:02 PM CDT MS ARTL CATH/CNULA MONITOR PERC Routine 10/23/2021 3:02 [...] COMPLETE TREATMENT INFORMATION Routine 05/13/2021 1:39 PM YOUTH DEVELOPMENT SPECIALIST ARIA DAILY TREATMENT INFORMATION Routine 05/13/2021 1:39 PM YOUTH DEVELOPMENT SPECIALIST ARIA DAILY TREATMENT INFORMATION Routine 05/10/2021 4:02 PM YOUTH DEVELOPMENT SPECIALIST ARIA DAILY TREATMENT INFORMATION Routine 05/09/2021 3:59 PM YOUTH DEVELOPMENT SPECIALIST ARIA DAILY TREATMENT INFORMATION Routine 05/08/2021 8:08 AM YOUTH DEVELOPMENT SPECIALIST ARIA DAILY TREATMENT INFORMATION Routine 05/06/2021 4:22 PM YOUTH DEVELOPMENT SPECIALIST ARIA DAILY TREATMENT INFORMATION Routine 05/03/2021 4:12 PM YOUTH DEVELOPMENT SPECIALIST ARIA DAILY TREATMENT INFORMATION Routine 05/02/2021 3:58 PM YOUTH DEVELOPMENT SPECIALIST ARIA DAILY TREATMENT INFORMATION Routine 05/01/2021 4:16 PM YOUTH DEVELOPMENT SPECIALIST ARIA DAILY TREATMENT INFORMATION Routine 04/30/2021 9:08 AM YOUTH DEVELOPMENT SPECIALIST ARIA DAILY TREATMENT INFORMATION Routine 04/29/2021 4:05 PM YOUTH DEVELOPMENT SPECIALIST ARIA DAILY TREATMENT INFORMATION Routine 04/26/2021 3:58 PM YOUTH DEVELOPMENT SPECIALIST ARIA DAILY TREATMENT INFORMATION Routine 04/25/2021 4:08 PM YOUTH DEVELOPMENT SPECIALIST ARIA DAILY TREATMENT INFORMATION Routine 04/24/2021 4:00 PM YOUTH DEVELOPMENT SPECIALIST ARIA DAILY TREATMENT INFORMATION Routine 04/23/2021 9:29 AM YOUTH DEVELOPMENT SPECIALIST ARIA DAILY TREATMENT INFORMATION Routine 04/22/2021 4:12 PM YOUTH DEVELOPMENT SPECIALIST ARIA DAILY TREATMENT INFORMATION Routine 04/19/2021 4:08 PM YOUTH DEVELOPMENT SPECIALIST ARIA DAILY TREATMENT INFORMATION Routine 04/18/2021 4:22 PM YOUTH DEVELOPMENT SPECIALIST ARIA DAILY TREATMENT INFORMATION Routine 04/17/2021 4:05 PM YOUTH DEVELOPMENT SPECIALIST ARIA DAILY TREATMENT INFORMATION Routine 04/16/2021 8:11 AM YOUTH DEVELOPMENT SPECIALIST ARIA DAILY TREATMENT INFORMATION Routine 04/15/2021 4:17 PM YOUTH DEVELOPMENT SPECIALIST ARIA DAILY TREATMENT INFORMATION Routine 04/12/2021 4:38 PM YOUTH DEVELOPMENT SPECIALIST ARIA DAILY TREATMENT INFORMATION Routine 04/11/2021 4:16 PM YOUTH DEVELOPMENT SPECIALIST ARIA DAILY TREATMENT INFORMATION Routine 04/10/2021 4:21 PM YOUTH DEVELOPMENT SPECIALIST ARIA DAILY TREATMENT INFORMATION Routine 04/09/2021 8:42 AM YOUTH DEVELOPMENT SPECIALIST ARIA DAILY TREATMENT INFORMATION Routine 04/08/2021 4:29 PM YOUTH DEVELOPMENT SPECIALIST ARIA DAILY TREATMENT INFORMATION Routine 04/05/2021 3:53 PM YOUTH DEVELOPMENT SPECIALIST ARIA DAILY TREATMENT INFORMATION Routine 04/04/2021 3:39 PM YOUTH DEVELOPMENT SPECIALIST ARIA DAILY TREATMENT INFORMATION Routine 04/03/2021 3:57 PM YOUTH DEVELOPMENT SPECIALIST ARIA DAILY TREATMENT INFORMATION Routine 04/02/2021 9:19 AM YOUTH DEVELOPMENT SPECIALIST ARIA DAILY TREATMENT INFORMATION Routine 04/01/2021 4:02 PM YOUTH DEVELOPMENT SPECIALIST ARIA COURSE COMPLETE TREATMENT INFORMATION Routine 03/28/2021 3:50 PM YOUTH DEVELOPMENT SPECIALIST OUTSIDE MR NEURO Routine 03/25/2021 3:35 PM YOUTH DEVELOPMENT SPECIALIST INITIAL RAD ONC TREATMENT PLANNING CT SIMULATION Routine 03/25/2021 1:52 PM YOUTH DEVELOPMENT SPECIALIST 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) CREATININE WITH EGFR, S/P Routine 03/22/2021 12:47 PM YOUTH DEVELOPMENT SPECIALIST OUTSIDE DX CHEST Routine 03/11/2021 9:55 AM YOUTH DEVELOPMENT SPECIALIST OUTSIDE CT BODY Routine 03/11/2021 8:15 AM YOUTH DEVELOPMENT SPECIALIST OUTSIDE CT BODY Routine 02/26/2021 3:10 PM YOUTH DEVELOPMENT SPECIALIST OUTSIDE NM PET Routine 02/26/2021 2:35 PM YOUTH DEVELOPMENT SPECIALIST OUTSIDE MR NEURO Routine 02/14/2021 5:15 PM YOUTH DEVELOPMENT SPECIALIST OUTSIDE DX SKELETAL Routine 01/09/2021 8:05 AM CDT OUTSIDE MR NEURO Routine 01/03/2021 5:25 PM CDT OUTSIDE DX SKELETAL Routine 11/10/2020 10:10 AM CDT Results * PET skull to mid thigh-Outside NM Pet (09/01/2024 3:20 PM CDT) Only the most recent of10 resultswithin the time period is included. Narrative [facility] - 09/05/2024 5:23 PM CDT This order has been created [...] System IMG NM PROCEDURES Final R esult IINM NA * MR head/brain wo/w con-Outside MR Neuro (08/29/2024 10:35 AM CDT) Only the most recent of9 resultswithin the time period is included. Narrative [facility] - 09/05/2024 5:19 PM CDT This order has been created [...] RADIOPHARMACEUTICAL/MEDS: Route: intravenous fludeoxyglucose F 18 injection PRISON (FDG F-18),11.4 millicurie Procedure Note Behzad Ramirez [...] RADIOPHARMACEUTICAL/MEDS: Route: intravenous fludeoxyglucose F 18 injection PRISON (FDG F-18),11.4 millicurie IMPRESSION: 1. FDG avid [...] right common iliac artery stent without stenosis. Pritesh Daniels, Ch.B., Ph.D. IM US MS OCEDURES Final Result * US Lower Extremity [...] stent is patent. Persistent stenosisproximal to stent. us Pritesh Daniels, Ch.B., Ph.D. IM US MS OCEDURES Final Result * US Carotid Duplex Bilateral-Outside US Neuro [...] defined workflow. us Provider Not In System [facility] [place]EDURES Final R esult [facility] NA * (ABNORMAL) CBC without Differential (10/02/2023 [...] 3:52 PM CDT 10/02/2023 4:00 PM CDT Sonal Segundo APRNN.PVineet, D.N.P. LAB BLOOD ADD-ON Final Result Performing Organization Address [facility]/ZIP Co de Phone Number [facility] [address] [place] [address], [facility] STMA [facility] [address] [place] [address] * Transfuse Red Blood Cells : (10/02/2023 2:52 PM CDT) Sonal Chavez APRNN.Joshua, M.S.N. BLOOD SAGE SFUSION ORDERABLES Final Result * Type and Screen (with Reflex Antibody ID) (10/02/2023 11:02 AM CDT) Pathologist [facility] ABORh B Neg Not applicable 10/02/2023 11:40 AM CDT STRM Antibody Screen Negative Negative 10/02/2023 11:55 AM CDT STRM Type & Screen Expiration 10/05/2023 23:59 10/02/2023 11:40 AM CDT STRM Testing Location [place] DEFAULT 10/02/2023 11:12 AM CDT STRM Blood (Blood, Venous) 10/02/2023 11:02 AM CDT 10/02/2023 11:12 AM CDT Giovany Chavez APRN.N.PVineet, M.S.N. LAB BLOOD BANK TEST ORDERABLES Final Result Performing Organization Address [facility] Co de Phone Number [facility] [address] [place] [address], [facility] [address] [place] [address] * Basic Metabolic Panel (10/02/2023 7:10 AM CDT) Potassium, S 4.5 3.6 - 5.2 mmol/L [...] 7:10 AM CDT 10/02/2023 7:54 AM CDT us Ivana Villasenor APRN, C.N.P., D.N.P. LAB BLOOD ADD-ON Final Result [facility] [address] [place] [address], [facility] [address] [place] [address] * IR IMAGING (10/01/2023 3:15 PM CDT) Anatomical Region Laterality Modality N/A Other Narrative 10/02/2023 7:07 AM CDT Performed by surgeon - see Op Note for result. us Pritesh Daniels, Ch.B., Ph.D. IMG IR MS OCEDURES Final Result * IR ENDOVASCULAR ANGIOPLASTY STENT ILIAC LOWER EXTREMITY (10/01/2023 3:15 PM CDT) Anatomical Region Laterality Modality Lower Extremity, Vascular Interventional RST LOS N/A Other Narrative 10/02/2023 7:07 AM CDT Performed by surgeon - see Op Note for result. us Pritesh Daniels, ChVineetB., Ph.D. IMG IR MS OCEDURES Final Result * (ABNORMAL) ACT (Activated Clotting Time), POCT (10/01/2023 2:26 PM CDT) Only the most recent of12 resultswithin the time period is included. Activated Clotting Time, POCT 192(H) 84 - 139 sec 10/01/2023 2:30 PM CDT PCSM Blood 10/01/2023 2:26 PM CDT 10/01/2023 2:31 PM CDT Unknown Provider LAB POCT ORDERABLES - DEVICE Fi nal Result Performing Organization Address City/State/[facility] Co de Phone Number [facility] [address] POC [address] [place] [address] * Airway (10/01/2023 7:47 AM CDT) Narrative [...] CT fluoroscopic guidance, two short 17 R [employer] cryoablation probes were placed within the lesion. [...] table. Selected axial images were taken through [email or web address] [employer]. The soft tissue nodule was identified and correlated to the patient's most recentPET study. The patient was then prepped and draped using sterile technique. Under intermittent CTfluoroscopic guidance, two short 17 R [employer] cryoablation probes were placed within thelesion. [...] ETT location: oral VL device: glide scope [place] scope blade size: 4 Adult tube size: [...] - 12.5 sec 07/08/2022 9:51 AM CDT [facility] 1.0 0.9 - 1.1 07/08/2022 9:51 AM CDT STMA Comment: ----ADDITIONAL INFORMATION---- Standard intensity warfarin therapeutic range: 2.0 to 3.0 High intensity warfarin therapeutic range: 2.5 to 3.5 Blood (Blood, Venous) 07/08/2022 9:39 AM CDT 07/08/2022 9:44 AM CDT Pritesh Tee M.D. LAB BLOOD ADD-ON Final Re sult Performing Organization Address City/[facility]/ZIP Co de Phone Number [facility] [address] [place] [address], [facility] [address] [place] [address] * Aria Course Complete Treatment Information (03/07/2022 10:29 AM YOUTH DEVELOPMENT SPECIALIST) Only the most recent of3 resultswithin the time period is included. Course ID [id number] [id number] BHATT ARIA Course Start Date 2 10:13 YOUTH DEVELOPMENT SPECIALIST BHATT ARIA Course End Date 2 13:07 YOUTH DEVELOPMENT SPECIALIST BHATT ARIA First Treatment Date 2 13:26 YOUTH DEVELOPMENT SPECIALIST BHATT ARIA Last Treatment Date 2 10:29 YOUTH DEVELOPMENT SPECIALIST BHATT ARIA Treatment Elapsed Days 4 BHATT ARIA Reference Point [id number] BHATT ARIA Dosage Given to Date cGy 3000 BHATT ARIA Plan ID [id number] BHATT ARIA Fractions Treated to Date 3 BHATT ARIA Planned Total Fractions 3 BHATT ARIA Prescribed Dose Per Fraction 1000 BHATT ARIA Prescription Dose in cGy 3000 BHATT ARIA Plan Primary Reference Point [id number] BHATT ARIA 03/07/2022 10:2 9 AM YOUTH DEVELOPMENT SPECIALIST us Provider Not In System RADIATION ONCOLOGY ORDERA BLES Final Result Performing Organization Address City/[facility]/ZIP Co de Phone Number BHATT ARIA na * Aria Daily Treatment Information (03/07/2022 10:29 AM YOUTH DEVELOPMENT SPECIALIST) Only the most recent of33 resultswithin the time period is included. Course ID [id number] [id number] BHATT ARIA Course Start Date 2 10:13 YOUTH DEVELOPMENT SPECIALIST BHATT ARIA First Treatment Date 2 13:26 YOUTH DEVELOPMENT SPECIALIST BHATT ARIA Last Treatment Date 2 10:29 YOUTH DEVELOPMENT SPECIALIST BHATT ARIA Treatment Elapsed Days 4 BHATT ARIA Reference Point [id number] BHATT ARIA Dosage Given to Date cGy 3000 BHATT ARIA Session Dosage Given 1000 BHATT ARIA Plan ID [id number] BHATT ARIA Fractions Treated to Date 3 BHATT ARIA Planned Total Fractions 3 BHATT ARIA Prescribed Dose Per Fraction 1000 BHATT ARIA Prescription Dose in cGy 3000 BHATT ARIA Plan Primary Reference Point [id number] BHATT ARIA 03/07/2022 10:2 9 AM YOUTH DEVELOPMENT SPECIALIST us Provider Not In System RADIATION ONCOLOGY ORDERA BLES Final Result Performing Organization Address City/[facility]/ZIP Co de Phone Number MILLER HILTON na * Initial Rad Onc Treatment Planning CT Simulation (02/24/2022 10:00 AM YOUTH DEVELOPMENT SPECIALIST) Only the most recent of2 resultswithin the time period is included. Narrative BHATT ARIA - 02/24/2022 10:00 AM YOUTH DEVELOPMENT SPECIALIST Olamide Paul R, RTT 02/24/2022 10:24 AM Initial Rad Onc Treatment Planning CT Simulation Performed by: Whit Meade M.D. Authorized by: Whit Meade M.D. us Whit Meade M.D. RADIATION ONCOLOGY ORDERA BLES Final Result MILLER HILTON na * MS ARTL CATH/CNULA MONITOR PERC, LDA ANE ARTERIAL LINE INSERTION (10/23/2021 3:02 PM CDT) Narrative Heavenly Barber APRN, [employer] - 10/23/2021 3:02 PM CDT Heavenly Barber APRN, [employer] 10/23/2021 3:02 PM Invasive Catheter Date/Time: 10/23/2021 [...] CT fluoroscopic guidance an 11-gauge 12 cm TVbeat bone access needle was used to make a manager shop hole through the transverse process and costovertebral junction. A total of three cryoablation probes were placed, vertically stacked along the left T2 throughT3-T4 paraspinal spaces, including two variable probes set to 4.0 and a PERC-17 R [employer]works cryoablation probe. The probes were tested outside [...] benefits, alternatives and procedure of a left [id number] paraspinal cryoablation were discussed with the patient [...] intermittent CTfluoroscopic guidance an 11-gauge 12 cm Rhianna bone access needle was used to make a manager shop holethrough the transverse process and costovertebral junction. A total of three cryoablation probeswere placed, vertically stacked along the left T2 throughT3-T4 paraspinal spaces, including twovariable probes set to 4.0 and a PERC-17 R [employer]works cryoablation probe. The probes were tested outsideof [...] Monitoring Final Report Study Number: 1 EMG Ship Officer: Cem Pan. 127 or [phone] Referred by: PRITESH TEE (127 or [phone]) Referred for: Referral Code: 1975 RX: 1977 [...] the submitted billing. Pawan Pan (127 or [phone])/[facility] Surgery Staff Minutes Start-DateTime End-DateTime Ship Officer 130 10/23/2021 12:32 PM YOUTH DEVELOPMENT SPECIALIST 10/23/2021 14:42 PM YOUTH DEVELOPMENT SPECIALIST Airway Controller 130 10/23/2021 12:32 PM YOUTH DEVELOPMENT SPECIALIST 10/23/2021 14:42 PM YOUTH DEVELOPMENT SPECIALIST This interpretation has been electronically signed: Cem Pan, DO, PhD at 10/23/2021 2:45:22 PM CDT Procedure Note Chin Pan D.O., Ph.D. - 10/23/2021 23-Oct-2021 Intraoperative Monitoring FinalReport Study Number: 1 EMG Ship Officer: Cem Pan. [phone] or [phone] Referred by: PRITESH TEE (127 or [phone]) Referred for: Referral Code: 1975 RX: 1975 [...] the submitted billing. Pawan Pan (127 or [phone])/[facility] Surgery Staff Minutes Start-DateTime End-DateTime Ship Officer 130 10/23/2021 12:32 PM YOUTH DEVELOPMENT SPECIALIST 10/23/2021 14:42 PM YOUTH DEVELOPMENT SPECIALIST Airway Controller 130 10/23/2021 12:32 PM YOUTH DEVELOPMENT SPECIALIST 10/23/2021 14:42 PM YOUTH DEVELOPMENT SPECIALIST This interpretation has been electronically signed: Cem Pan DO, PhD at 10/23/2021 2:45:22 PM CDT us Pritesh Tee M.D. NEUROLOGY ORDERABLES Edit ed Result - Final [facility] * Creatinine, POCT (10/23/2021 10:52 AM CDT) Creatinine, POCT, B 0.8 0.7 - 1.4 mg/dL 10/23/2021 10:57 AM CDT PCSM Comment: ----ADDITIONAL INFORMATION---- Performed at the Point of Care eGFR-Black/Afric an [place], POCT >90 >=60 mL/min/BSA 10/23/2021 10:58 AM CDT PCSM Comment: ----ADDITIONAL INFORMATION---- Estimated GFR calculated using the 2009 CKD_EPI creatinine equation. eGFR Non-Black/Aissatou n [place], POCT >90 >=60 mL/min/BSA 10/23/2021 10:58 AM CDT PCSM Comment: ----ADDITIONAL INFORMATION---- Estimated GFR calculated using the 2009 CKD_EPI creatinine equation. Blood 10/23/2021 10:5 2 AM CDT 10/23/2021 10:58 AM CDT us Unknown Provider LAB POCT ORDERABLES - DEVICE Fi nal Result [facility] [address] [place] [address], [facility] POC [address] [place] [address] * SARS CoV-2 RNA, PCR, Varies Asymptomatic [...] and Drug Administration and is used per boat crew deck hand's instructions. Performance characteristics were verified by [facility] in a manner consistent with CLIA requirements. Visit the CDC website: https://www.cdc.gov/coronavirus/ for the most recent guidelines on Coronavirus testing. Fact Sheet for Healthcare Providers: https://www.fda.gov/media/120189/download Fact Sheet for Patients: https://www.fda.gov/media/213107/download Varies (Nasopharynx) 10/22/2021 9:49 AM CDT 10/22/2021 10:30 AM CDT us Pritesh Tee M.D. LAB MICROBIOLOGY - GENERA L ORDERABLES Final Result [facility] [address] [place] [address], [place] DTL [facility] [address] [place] [address] * MR Thoracic Spine without and with [...] resultswithin the time period is included. Narrative IINM - 08/23/2021 10:05 AM CDT This order has been created and auto-finalized to support the import of outside images. If available, original interpretation can be found on the Media Tab in Chart Review, in Document Viewer, or as an image in QREADS. If a re-interpretation or overread is required please follow defined workflow. Provider Not In System IMG DIAGNOSTIC IMAGING MS OCEDURES Final Result [facility] NA * CHEST W/CONTRAST-Outside CT Body (06/06/2021 10:45 AM CDT) Only the most recent of3 resultswithin the time period is included. Narrative IINM - 06/07/2021 3:19 PM CDT This order has been created and auto-finalized to support the import of outside images. If available, original interpretation can be found on the Media Tab in Chart Review, in Document Viewer, or as an image in QREADS. If a re-interpretation or overread is required please follow defined workflow. Provider Not In System IMG CT PROCEDURES Final R esult Performing Organization Address [facility] Co de Phone Number [facility] NA * (ABNORMAL) Creatinine with Estimated GFR (03/22/2021 12:47 PM YOUTH DEVELOPMENT SPECIALIST) EXT Creatinine 0.7(A) 0.73 - 1.36 mg/dL [facility] Blood (Blood, Venous) 03/22/2021 12:47 PM YOUTH DEVELOPMENT SPECIALIST Whit Meade M.D. LAB BLOOD ADD-ON Final Re sult Performing Organization Address [facility] Co de Phone Number [facility] [address] [place] [address] * XR SPINE CERVICAL 4 OR 5 VIEWS-Outside Skeletal Xray (01/09/2021 8:05 AM CDT) Only the most recent of2 resultswithin the time period is included. Narrative IIMS - 03/19/2021 9:48 AM YOUTH DEVELOPMENT SPECIALIST This order has been created and auto-finalized to support the import of outside images. If available, original interpretation can be found on the Media Tab in Chart Review, in Document Viewer, or as an image in QREADS. If a re-interpretation or overread is required please follow defined workflow. 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 Legs 08/03/2023 Nicotine Dependence Cigarettes 08/03/2023 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) 08/03/2023 Atherosclerosis Of [place] Arteries Of Extremities With Intermittent Claudication Bilateral Legs 08/12/2023 Nicotine Dependence Cigarettes 08/12/2023 Atherosclerosis Of [place] Arteries Of Extremities With Intermittent Claudication Bilateral Legs 08/12/2023 Atherosclerosis Of [place] Arteries Of Extremities With Intermittent Claudication Bilateral Legs 08/12/2023 Atherosclerosis [place] Arteries Of Extremities With Intermittent Claudication Bilateral [...] NOS 10/01/2023 Emphysema (HCC) 10/01/2023 Anemia Aplastic ([facility]) 10/01/2023
--- OUTSIDE RECORDS SUMMARY | 2025-02-04 09:51 | XMS_ITS | Clinical Summary ---
Author Organization [facility] [place] Address [address] [place] [address] Care Team Providers Care Sizing Machine Operator Name Role Phone Mikal Gunter MD Primary Care Provider [phone] Allergies Active Allergy Reactions Criticality Noted Date [...] syringe Inject 60 mg subcutaneous ly. Active Encounters Date Type Department Care Team Description 02/04/2025 Orders Only [facility] Endoscopy [address] [id number] Constance Khan MD AVM (arteriovenous malformation) of small bowel, acquired; Anemia; Low hemoglobin from Last 3 Months Social History Tobacco Use Types Packs/Day Years Used Date Smoking Tobacco: Every Day Cigarettes 0.3 51.9 Started: 03/1973 Smokeless Tobacco: Never Tobacco Cessation:Ready [...] on file Legal Sex Male 3:40 AM DECK MOLDER Gender Identity Not on file Sexual Orientation Not on file Last Filed Vital Signs Vital Sign Reading Time Taken Comments Blood Pressure 144/81 04/06/2024 3:43 PM DECK MOLDER Pulse 83 04/06/2024 3:00 PM DECK MOLDER Temperature 36.9 C (98.4 F) 04/06/2024 3:43 PM DECK MOLDER Respiratory Rate 16 04/06/2024 3:43 PM DECK MOLDER Oxygen Saturation 92% 04/06/2024 3:43 PM DECK MOLDER Inhaled Oxygen Concentration - - Weight 75.4 kg (166 lb 4.8 oz) 04/06/2024 12:32 PM DECK MOLDER Height 185.4 cm (6' 1) 04/06/2024 12:32 PM DECK MOLDER Body Mass Index 21.94 04/06/2024 12:32 PM DECK MOLDER Plan of Treatment Health Maintenance Due Date Last Done Comments ADVANCE CARE PLANNING 1955 ANNUAL REVIEW OF HM ORDERS 1953 CT COLONOGRAPHY 1953 DIABETES SCREENING 1953 FIT 1953 FLEX SIG 1953 LIPID 1953 NICOTINE/TOBACCO CESSATION COUNSELING Q 1 YR 1953 TSH W/FREE T4 REFLEX 1953 sDNA (Cologuard) 1953 RSV VACCINE (1 - Risk 50-74 years 1-dose series) 10/10/2003 AORTIC ANEURYSM SCREENING (SYSTEM ASSIGNED) 2018 FALL RISK ASSESSMENT 2018 PHQ-2 (once per calendar year) 2024 COVID-19 VACCINE ( season) 2024 12/15/2023, 01/26/2023, 12/05/2021, Additional history exists INFLUENZA VACCINE (#1) 2024 , 11/23/2022, 12/05/2021, Additional history exists MEDICARE ANNUAL WELLNESS VISIT 12/14/2024 12/15/2023, 09/10/2021, 09/28/2020 LUNG CANCER SCREENING 02/28/2025 02/29/2024, 021 COLONOSCOPY 11/09/2033 11/10/2023 COLORECTAL CANCER SCREENING 11/09/2033 DTAP/TDAP/TD VACCINE (5 - Td or Tdap) 02/22/2034 02/23/2024, 06/09/2013, 04/24/1999, Additional history exists HEPATITIS C SCREENING Completed 06/09/2013 PNEUMOCOCCAL VACCINE 50+ YEARS Completed 09/10/2021 ZOSTER VACCINE Completed 02/23/2024, 01/26/2023 HPV VACCINE (No Doses Required) Completed MENINGITIS VACCINE Aged Out No longer eligible based on patient's age to complete this topic Insurance [employer] MEDICARE ADVANTAGE Care Teams Sizing Machine Operator Relationship Specialty [place] [id number] [place] [address] PCP - General 04/01/24
--- OUTSIDE RECORDS SUMMARY | 2025-02-04 09:51 | XMS_ITS ---
Author Organization [facility] Address [address] [place] [address] Care Team Providers Care Register Repairer Name Role Phone Unavailable Primary Care Provider [...] Fraction Dose Fractions Total Dose Plans Planned [id number] 03/03/2022 - 03/07/2022 1,000 cGy 3 / 3 3,000 cGy Reference Points Delivered [id number] 03/03/2022 - 03/07/2022 3,000 cGy * IMRT: [...] / 5 5,000 cGy Reference Points Delivered [id number] 04/01/2021 - 05/13/2021 6,000 cGy [id number] 04/15/2021 - 04/24/2021 5,000 cGy Lifetime Dose Tracking * Chemical Lifetime Dose Automatic Entry Manual Entr y Radiation 328 mGy 0 mGy 328 mGy Fluoro Time 124 minutes 0 minutes 124 minutes DAP (Gy-cm2) 91.13 Gy-cm2 0 Gy-cm2 91.13 Gy-cm2
--- OUTSIDE RECORDS SUMMARY | 2025-02-04 09:51 | XMS_ITS | Clinical Summary ---
Author Organization [facility] Address [address] [place] [address] Care Team Providers Care Chopped Strand Operator Name Role Phone Nedra Fontana RN, BSN, OCN Unavailable [phone] Mikal Gunter MD Primary Care Provider [phone] Jackie Gonzáles RN Unavailable [phone] Reny Nixon NP Unavailable [phone] Charity Dudley MD Unavailable [phone] Allergies Active Allergy Reactions Criticality Noted Date Comments Carboplatin Anaphylaxis,Dizzines s,Dyspnea,Flushing ,Rash,Shortness Of Breath High 10/27/2023 Medications Symbicort 80-4.5 mcg/actuation (80-4.5 mcg each actuation) inhaler INHALE 2 PUFFS INTO THE LUNGS TWICE A DAY 07/26/19 22 Active Vitamins B Complex tablet Take 1 Tablet by mouth once daily. 12/23/19 23 Active famotidine (PEPCID) 20 mg tablet Take 20 mg by mouth two times daily. 09/22/19 24 Active folic acid 1 mg tablet Take 1 mg by mouth once daily. 07/25/19 24 Active Eliquis 5 mg tablet 12/11/19 24 Active levothyroxine (SYNTHROID) 125 mcg tablet Take 1 Tablet by mouth once daily. 12/17/19 24 Active fluticasone (50 mcg per actuation) nasal solution (FLONASE) Inhale 1 Jenison into affected nostril(s) once daily. Active albuterol-budes onide 90-80 mcg/actuation HFAAIndications :Pulmonary emphysema, unspecified emphysema type (HC) Inhale 2 Puffs by mouth every 6 hours if needed (Shortness of breath). 10.7 g 5 12/07/19 Active gabapentin (NEURONTIN) 300 mg capsuleIndicati ons:Upper back pain on left side,Radicular pain in left arm Take 1-2 Capsules (300-600 mg) by mouth at bedtime. 180 Capsule 12/23/19 Active Additional Information Patient taking differently: 600 mgOral BEDTIME, Reason: before bed takes 2 and another 1 cap at 2am, Reported on 02/03/2025 methylphenidate HCl (Ritalin) 10 mg tabletIndicatio ns:Neoplastic malignant related fatigue Take 1 Tablet (10 mg) by mouth 2 times daily at 7 AM and Noon. 60 Tablet 01/11/202024 Active methylphenidate HCl (Ritalin) 10 mg tabletIndicatio ns:Neoplastic malignant related fatigue Take 1 Tablet (10 mg) by mouth 2 times daily at 7 AM and Noon. 60 Tablet 02/10/20 25 2024 Active methylphenidate HCl (Ritalin) 10 mg tabletIndicatio ns:Neoplastic malignant related fatigue Take 1 Tablet (10 mg) by mouth 2 times daily at 7 AM and Noon. 60 Tablet 03/11/20 Active docusate (Colace) 100 mg capsuleIndicati ons:Drug-induce d constipation Take 1 Capsule (100 mg) by mouth two times daily. 01/12/20 Active morphine 10 mg/5 mL (2 mg/mL) solutionIndicat ions:Malignant neoplasm of upper lobe, left bronchus or lung (HC),Shortness of breath Take 1.3-2.5 mL (2.6-5 mg) by mouth every 3 hours if needed (Shortness of breath). 250 mL 01/28/20 Active Additional Information Patient taking differently: No details specified, Reason: 2.5mL BID, Reported on 02/03/2025 pantoprazole (PROTONIX) 40 mg delayed-release tabletIndicatio ns:Chronic GERD TAKE 1 TABLET (40 MG) BY MOUTH TWO TIMES DAILY BEFORE MEALS. 180 Tablet 2 02/04/20 Active pantoprazole (PROTONIX) 40 mg delayed-release tabletIndicatio ns:Chronic GERD Take 1 Tablet (40 mg) by mouth two times daily before meals. 90 Tablet 2 11/05/19 25 2024 Discontinued morphine 10 mg/5 mL (2 mg/mL) solutionIndicat ions:Malignant neoplasm of upper lobe, left bronchus or lung (HC),Shortness of breath Take 1.3-2.5 mL (2.6-5 mg) by mouth every 3 hours if needed (Shortness of breath). 250 mL 11/10/192024 Discontinued(R eorder (E-cancel not sent)) methylphenidate HCl (Ritalin) 10 mg tabletIndicatio ns:Neoplastic malignant related fatigue Take 1 Tablet (10 mg) by mouth 2 times daily at 7 AM and Noon. 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 History of blood clots 12/15/2023 History of intravascular stent placement 024 CKD (chronic kidney disease), stage II Atherosclerosis of [place] of extremities with intermittent claudication, unspecified extremity 09/15/2023 Aortic ectasia 04/21/2023 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 04/21/2023 Pain 04/21/2023 Primary hypertension 06/26/2022 Major depressive disorder, recurrent, unspecifie d 04/16/2021 Malignant neoplasm of upper lobe, left bronchus or lung 04/16/2021 Adenomatous polyp of colon 09/06/2013 Overview [...] 12/15/2023 Alcohol dependence, daily use 04/16/2021 12/15/2023 Alcohol dependence 04/16/2021 Encounters Date Type Department Care Team Description 02/04/2025 Telephone [facility] [id number] [place] [address] Mikal Gunter MD Results 02/03/2025 10:00 AM ELECTRICAL CONTROL ASSEMBLER Office Visit [facility] [address] [place] [address] Mikal Gunter MD Preoperative Exam 02/02/2025 Travel 02/02/2025 Refill [facility] [address] [place] [address] Mikal Gunter MD Refill Request (Pantoprazole) 01/31/2025 Telephone [facility] [address] [place] [address] Mikal Gnuter MD Follow Up (would like to know if Provider has received form and have signed ) 01/27/[address] [facility] [place] [address] Reny Nixon, TRUDY Refill Request (morphine) 01/27/2025 Telephone [facility] [address] [place] [address] Mikal Gunter MD Form (medical clearance form ) 01/11/2025 2:00 PM CDT Home Visit [facility] [address] [place] [phone] Reny Nixon NP [facility] Palliative Care (Shortness of breath, Neoplasm related pain, anorexia) 01/10/2025 11:40 AM CDT Office Visit [address] [address] Mikal Gunter MD Medicare ANNUAL (subsequent) Visit (No fasting); Medication Management 01/10/2025 Travel 01/06/2025 Travel 12/22/[address] [address] Mikal Gunter MD Refill Request (gabapentin (NEURONTIN) 300 mg capsule) 12/06/2024 1:30 PM CDT Home Care Visit [address] [address] Jackie Gonzáles, RN SN - PALLIATIVE CARE ROUTINE VISIT 12/06/2024 Orders Only [address] [address] Mikal Gunter MD <No scans attached> 12/06/[address] [address] Mikal Gunter MD Refill Request (albuterol-budesonid e 90-80 mcg/actuation HFAA/) 11/09/2024 2:00 PM CDT Home Visit [facility] [address] [place] [address] Reny Nixon NP [facility] Palliative Care (Pain, SOB, fatigue/ somnolence, SCHOOL PSYCHOLOGY PROFESSOR WELL SERVICE FLOOR WORKER f/u visit) 11/09/2024 Travel from Last 3 Months Immunizations Immunization Administration [...] Date Smoking Tobacco: Every Day Cigarettes 0.5 51.9 Started: 03/16/1973 Passive Smoke Exposure: Past Smokeless Tobacco: Never Tobacco Cessation:Ready to Q uit: No; Counseling Given: No Comments:09/19/2024 3-4 cigs per day Alcohol Use Standard Drinks/Week Comments Not Currently 0 (1 standard drink = 0.6 oz pur e alcohol) 3-4 per day PHQ-2 Answer Date Recorded PHQ-2 TOTAL SCORE 0 01/10/2025 Social Connections Answer Date Recorded Do you often feel lonely or isolated from those around you? 0 02/24/2024 Alcohol Use Answer Date Recorded How often do you have a drink containing alcohol ? 1 02/03/2025 How many drinks containing a lcohol do you have on a typical day when you are drinking? 0 02/03/2025 How often do you have five or more drinks on one occasion? 0 02/03/2025 Financial Resource Strain Answer Date R ecorded [...] on file Legal Sex Male 6:51 AM ELECTRICAL CONTROL ASSEMBLER Gender Identity Not on file Sexual Orientation Not on file Obstetrics History Last Filed Vital Signs Vital Sign Reading Time Taken Comments Blood Pressure 112/52 02/03/2025 10:07 AM ELECTRICAL CONTROL ASSEMBLER Pulse 78 02/03/2025 10:07 AM ELECTRICAL CONTROL ASSEMBLER Temperature 36.8 C (98.2 F) 02/03/2025 10:07 AM ELECTRICAL CONTROL ASSEMBLER Respiratory Rate 18 10/28/2024 3:12 PM CDT Oxygen Saturation 100% 02/03/2025 10:13 AM ELECTRICAL CONTROL ASSEMBLER Inhaled Oxygen Concentration - - Weight 64.9 kg (143 lb) 02/03/2025 10:07 AM ELECTRICAL CONTROL ASSEMBLER Height 185.4 cm (6' 1) 02/03/2025 10:07 AM ELECTRICAL CONTROL ASSEMBLER Body Mass Index 18.87 02/03/2025 10:07 AM ELECTRICAL CONTROL ASSEMBLER Plan of Treatment Upcoming Encounters Date Type Department Care Team (Late st Contact Info) Description 02/08/2025 6:00 AM ELECTRICAL CONTROL ASSEMBLER Appointment [facility] [employer] [facility] [address] [place], [place] [phone] Jackie Gonzáles, RN [address] [place], [place] [phone] Health Maintenance Due Date Last Done Comments RSV vaccine for adults or (1 - Risk 50-74 years 1-dose series) 10/10/[address] (for lung CA) age 50-80 02/26/2022 02/26/2021, 11/10/2020, 07/07/2008 Influenza Vaccine (#1) 2024 , 11/23/2022, 02/10/2021, Additional history exists Lipids for age 45-75 09/28/2025 09/28/2020, 10/06/2019, 02/09/2017, Additional history exists Depression screening for age 12+ 01/10/2026 01/10/2025, 12/15/2023, 09/10/2021, Additional history exists Medicare Wellness for age 65+ 01/11/2026 01/10/2025, 12/15/2023, 09/10/2021, Additional history exists BMI (ht and wt on same day) for age 18+ 02/03/2026 02/03/2025, 01/10/2025, 09/19/2024, Additional history exists Colonoscopy through age 75 11/09/202611/09, 11/28/2020, 11/28/2020, Additional history exists Tetanus booster 02/22/2034 02/23/2024, 05/15, 04/24/1999 Hepatitis C screening for age 18-79 Completed 06/09/2013 Pneumococcal series for age 50+ Completed 09/10/2021 AAA screening age 65-74 Completed 10/31/19 22 ([facility] 11/10/2020 Zoster (shingles) series for age 50+ Completed 02/23/2024, 01/26/2023 Hepatitis B series for 19+ Aged Out N o longer eligible based on patient's age to complete this topic Procedures Procedure Name Priority Date/Time Associated Diagnosis Comments CBC WITH AUTO DIFFERENTIAL Routine 02/03/2025 10:49 AM ELECTRICAL CONTROL ASSEMBLER Preop examination CBC WITH AUTO DIFFERENTIAL Routine 02/03/2025 10:49 AM ELECTRICAL CONTROL ASSEMBLER Preop examination SCAN-COLONOSCOPY 11/10/2023 12:[address] CHEST W Routine 02/26/2021 3:27 PM ELECTRICAL CONTROL ASSEMBLER Lung mass CT CHEST ABDOMEN PELVIS W VINCE 11/10/2020 9:53 AM CDT Radicular pain in left arm Chronic left-sided thoracic back pain Elevated PSA LIPID PANEL W REFLEX MEASURED LDL Routine 09/28/2020 11:12 AM CDT Lipid screening ANTI HCV Routine 06/09/2013 9:41 AM CDT Need for hepatitis C screening test from Last 3 Months or Most Recently Relevant to Health Maintenance Results * (ABNORMAL) CBC WITH AUTO DIFFERENTIAL (02/03/2025 10:49 AM ELECTRICAL CONTROL ASSEMBLER) Pathologist [facility] WHITE BLOOD CELL COUNT 9.0 3.8 - 10.8 Thousand/ uL 02/04/2025 5:21 AM ELECTRICAL CONTROL ASSEMBLER [facility] RED BLOOD CELL COUNT 3.59(L) 4.20 - 5.80 Million/u L 02/04/2025 5:21 AM ELECTRICAL CONTROL ASSEMBLER [facility] HEMOGLOBIN 6.7(L) 13.2 - 17.1 g/dL 02/04/2025 5:21 AM ELECTRICAL CONTROL ASSEMBLER [facility] HEMATOCRIT 25.8(L) 38.5 - 50.0 % 02/04/2025 5:21 AM ELECTRICAL CONTROL ASSEMBLER [facility] MCV 71.9(L) 80.0 - 100.0 fL 02/04/2025 5:21 AM ELECTRICAL CONTROL ASSEMBLER [facility] MCH 18.7(L) 27.0 - 33.0 pg 02/04/2025 5:21 AM ELECTRICAL CONTROL ASSEMBLER [facility] MCHC 26.0(L) 32.0 - 36.0 g/dL 02/04/2025 5:21 AM ELECTRICAL CONTROL ASSEMBLER [facility] Comment: For adults, a slight decrease in the calculated MCHC value (in the range of 30 to 32 g/dL) is most likely not clinically significant; however, it should be interpreted with caution in correlation with other red cell parameters and the patient's clinical condition. RDW 17.6(H) 11.0 - 15.0 % 02/04/2025 5:21 AM ELECTRICAL CONTROL ASSEMBLER [facility] PLATELET COUNT 327 140 - 400 Thousand/ uL 02/04/2025 5:21 AM ELECTRICAL CONTROL ASSEMBLER [facility] MPV 9.0 7.5 - 12.5 fL 02/04/2025 5:21 AM ELECTRICAL CONTROL ASSEMBLER [facility] NEUTROPHILS 66.9 % 02/04/2025 5:21 AM ELECTRICAL CONTROL ASSEMBLER [facility] LYMPHOCYTES 13.3 % 02/04/2025 5:21 AM ELECTRICAL CONTROL ASSEMBLER [facility] MONOCYTES 9.6 % 02/04/2025 5:21 AM ELECTRICAL CONTROL ASSEMBLER [facility] EOSINOPHILS 8.8 % 02/04/2025 5:21 AM ELECTRICAL CONTROL ASSEMBLER [facility] BASOPHILS 1.4 % 02/04/2025 5:21 AM ELECTRICAL CONTROL ASSEMBLER [facility] ABSOLUTE NEUTROPHILS 6021 1500 - 7800 cells/uL 02/04/2025 5:21 AM ELECTRICAL CONTROL ASSEMBLER [facility] ABSOLUTE LYMPHOCYTES 1197 850 - 3900 cells/uL 02/04/2025 5:21 AM ELECTRICAL CONTROL ASSEMBLER [facility] ABSOLUTE MONOCYTES 864 200 - 950 cells/uL 02/04/2025 5:21 AM ELECTRICAL CONTROL ASSEMBLER [facility] ABSOLUTE EOSINOPHILS 792(H) 15 - 500 cells/uL 02/04/2025 5:21 AM ELECTRICAL CONTROL ASSEMBLER [facility] ABSOLUTE BASOPHILS 126 0 - 200 cells/uL 02/04/2025 5:21 AM ELECTRICAL CONTROL ASSEMBLER [facility] CBC (INCLUDES DIFF/PLT) COMMENTS SEE NOTE 02/04/2025 5:21 AM ELECTRICAL CONTROL ASSEMBLER [facility] Comment: Review of peripheral smear confirms automated results. Blood BLOOD SPECIMEN / Unknown [facility] / Unknown 02/03/2025 10:49 AM ELECTRICAL CONTROL ASSEMBLER 02/03/2025 10:49 AM ELECTRICAL CONTROL ASSEMBLER us Mikal Gunter MD HEMATOLOGY Final Resul t Performing Organization Address City/State/[facility] Co de Phone Number [facility] [address] [place] [address], * SCAN-COLONOSCOPY (11/10/2023 12:00 AM CDT) us Scanner OTHER Final Result * CT CHEST W (02/26/2021 3:27 PM ELECTRICAL CONTROL ASSEMBLER) Anatomical Region Laterality Modality CHEST, THORAX, HEART Other 02/26/2021 3:27 PM ELECTRICAL CONTROL ASSEMBLER Narrative 02/26/2021 3:40 PM ELECTRICAL CONTROL ASSEMBLER EXAM DATE: 02/26/2021 EXAM: CT CHEST WITH CONTRAST LOCATION: [facility] DATE/TIME: 02/26/2021 3:30 PM INDICATION: Lung mass COMPARISON: CT chest abdomen pelvis 11/10/2020, PET/CT 02/26/2021 reviewed. TECHNIQUE: CT chest with IV contrast. Multiplanar reformats were obtained. Dose reduction techniques were used. CONTRAST: 100ml of [id number] was administered from a single use vial with 0ml discarded. MWR I-STAT Cr=0.7mg/dl, wIDA=369. [id number] Lot [id number] Ex:06/2023 FINDINGS: LUNGS AND PLEURA: Irregular mass [...] 02/26/2021 EXAM: CT CHEST WITH CONTRAST LOCATION: [facility] DATE/TIME: 02/26/2021 3:30 PM INDICATION: Lung mass COMPARISON: CT chest abdomen pelvis 11/10/2020, PET/CT 12/14/2021reviewed. TECHNIQUE: CT chest with IV contrast. Multiplanar reformats were obtained.Dose reduction techniques were used. CONTRAST: 100ml of [id number] was administered from a single use vial myqt6tn discarded. MWR I-STAT Cr=0.7mg/dl, bYEN=275. [id number] Lot [id number]:06/2023 FINDINGS: LUNGS AND PLEURA: Irregular mass in [...] result of the Century Cures Act, medical imaging exams and procedure reports are released immediately into your electronic medical record. You may view this report before your referring provider. If you have questions, please contact your health care provider. EXAM: CT CHEST ABDOMEN PELVIS W LOCATION: [facility] DATE/TIME: 11/10/2020 9:53 AM INDICATION: [...] of the 21st Century Cures Act, medical imagingexams and procedure reports are released immediately into your electronicmedical record. You may view this report before your referring provider.If you have questions, please contact your health care provider. EXAM: CT CHEST ABDOMEN PELVIS W LOCATION: [facility] DATE/TIME: 11/10/2020 9:53 AM INDICATION: [...] changes and prominent apicalbulla. us Martina Cid WELL SERVICE FLOOR WORKER CT Final Res ult * LIPID PANEL W REFLEX MEASURED LDL (09/28/2020 11:12 AM CDT) Pathologist [facility] CHOLESTEROL,TOTAL 196 100 - 199 mg/dL 09/28/2020 5:00 PM CDT [facility] TRIGLYCERIDES 69 <150 mg/dL 09/28/2020 5:00 PM CDT [facility] HDL CHOLESTEROL 59 >40 mg/dL 5:00 PM CDT [facility] NON-HDL CHOLESTEROL 137 <145 mg/dl 09/28/2020 5:00 PM CDT [facility] CHOL/HDL RATIO 3.32 <4.50 09/28/2020 5:00 PM CDT [facility] LDL CHOLESTEROL 123 <=130 mg/dL 09/28/2020 5:00 PM CDT [facility] VLDL CHOLESTEROL 14 mg/dL 09/29/19 5:00 PM CDT [facility] PROVIDER ORDERED STATUS RANDOM 09/28/2020 5:00 PM CDT [facility] Blood BLOOD SPECIMEN / Unknown Venipuncture / Unknown 09/28/2020 11:12 AM CDT 09/28/2020 11:12 AM CDT us Martina Cid WELL SERVICE FLOOR WORKER CHEMISTRY Final Res ult [facility] [address] [place] [address], [place] * ANTI HCV [33732.2] (06/09/2013 9:41 AM CDT) ANTI HCV Non-reacti ve [facility] Blood specimen (specimen) BLOOD SPECIMEN / Unknown 06/09/2013 9:41 AM CDT 06/09/2013 9:34 AM CDT us Aye Green MD SEND OUTS Final Result [facility] INTERNAL ZIP [id number] [place] [address] from Last 3 Months or Most Recently Relevant to Health Maintenance Insurance MEDICARE PART A HB ONLY [facility] MR [facility] MR Advance Directives Documents on File Type Date Recorded Patient Special Education Instructor Expl anation POLST 10/12/2024 11:02 AM * DNR (Latest Code Status on File) Date Activated Date Inactivated Comments 10/12/2024 10:39 AM Care Teams Chopped Strand Operator Relationship Specialty [place] [address] [facility] [place] [address] PCP - General Family Practice 12/10/23 Nedra Fontana, RN, BSN, OCN [address] [address] Nurse Navigator - Oncology Registered Nurse 02/27/21 Jackie Gonzáles, RN [address] [place] [address] Community Palliative Care Registered Nurse 09/21/24 Reny Nixon NP [address] [place] [address] Community Palliative Care Nurse Practitioner - Gerontology 10/12/24 Charity Dudley MD [address] [place] [address] Oncology Internal Medicine 11/10/24
--- OUTSIDE RECORDS SUMMARY | 2025-02-04 09:51 | XMS_ITS | Encounter Summary ---
Author Organization [facility] Address [address] [facility] [place] [address] Care Team Providers Care Senior Master Scheduler Name Role Phone Mikal Gunter MD Primary Care Provider [phone] Reason for Referral * Endoscopy Service (Routine: Next available opening) - Pending Review Specialty Diagnoses / Procedures Referred By Henrietta santana Referred To Contact Gastroenterology Diagnoses AVM (arteriovenous malformation) of small bowel, acquired Anemia Low hemoglobin Procedures small bowel Enteroscopy ENTEROSCOPY ZZ SM INT ENDO W/WO BRUSH/WASH ZZHC SM INT ENDO W/WO BRUSH/WASH Constance Khan MD [facility] [address] [place] [address] [place] [address] Phone: tel: fax: Referral ID Status Reason Start Date Expiration Date V isits Requested Visits Authorized [id number] Pending Review 02/04/2025 02/04/2026 1 1 ER REPAIRER Encounter Details Date Type Department Care Team (Late st Contact Info) Description 02/04/2025 Orders Only [facility] Endoscopy [address] [place] [id number] Constance Khan MD [facility] [address] [place] [address] [place] [id number] AVM (arteriovenous malformation) of small bowel, acquired; Anemia; Low hemoglobin Social History Tobacco Use Types Packs/Day Years Used Date Smoking Tobacco: Every Day Cigarettes 0.3 51.9 Started: 03/1973 Smokeless Tobacco: Never Alcohol Use Standard Drinks/Week Comments Yes 0 [...] on file Legal Sex Male 3:40 AM FENDER REPAIRER Gender Identity Not on file Sexual Orientation Not on file documented as of this encounter Plan of Treatment Scheduled Orders Name Type Priority Associated Diagnoses Order Schedule small bowel Enteroscopy Endoscopy Routine: Next available opening AVM (arteriovenous malformation) of small bowel, acquired Anemia Low hemoglobin Expected: 02/04/2025, Expires: 08/04/2026 documented as of this encounter Visit Diagnoses Diagnosis AVM (arteriovenous malformation) of small bowel, acquired Anemia Anemia, unspecified Low hemoglobin Anemia, unspecified documented in this encounter Care Teams Senior Master Scheduler Relationship Specialty [place] [address] [place] [address] PCP - General 04/01/24 documented as of this encounter
--- NOTE | 2025-02-04 10:24 | ED.GENADULT ---
HPI - General Adult General Chief complaint: Unspecified Complaint, Adult Stated complaint: low HGB Time Seen by Provider: 02/04/25 10:11 History of Present Illness HPI narrative: Patient is a 69 year white male with history of non-small cell cancer of the left lung, he is on chronic anticoagulation in the form of apixaban. He presents with low hemoglobin. He had history of GI bleeding in the past but he has not noticed any GI bleeding has had a chronically low hemoglobin due to his cancer and the chemotherapy that he received up until sounds like this summer when it was withheld as his tumor had advanced. He is in a palliative phase right now. He would accept transfusion. He feels quite weak especially with walking or doing any activity. He would like to feel better over the holiday season. Related Data Home Medications ?Medication ?Instructions ?Recorded ?Confirmed fluticasone furoate 27.5 2 spray intranasal BID 06/06/24 02/04/25 mcg/actuation nasal spray,suspension (Flonase Sensimist) methylphenidate HCl 10 mg tablet 10 mg PO BID 10/26/24 02/04/25 (Ritalin) gabapentin 300 mg capsule mg PO 12/27/24 12/27/24 morphine 10 mg/5 mL oral solution 2.6 - 5 mg PO Q3H PRN dyspnea 12/27/24 02/04/25 Previous Rx's ?Medication ?Instructions ?Recorded famotidine 20 mg tablet (Pepcid) 20 mg PO BID #180 tabs 12/09/23 magnesium oxide 400 mg (241.3 mg 400 mg PO BID #100 tabs 01/27/24 magnesium) tablet prochlorperazine maleate 5 mg 5 mg PO TID PRN nausea and 01/27/24 tablet (Compazine) vomiting #90 tabs levothyroxine 125 mcg tablet 125 mcg PO DAILY #90 tabs 03/21/24 albuterol sulfate 90 mcg/actuation 2 inh inhalation Q4H PRN shortness 04/18/24 aerosol inhaler (Ventolin HFA) of breath or wheezing #8.5 grams pantoprazole 40 mg tablet,delayed 40 mg PO BID #60 tabs 06/29/24 release folic acid 1 mg tablet 1 mg PO DAILY #90 tabs 08/01/24 Symbicort 80 mcg-4.5 mcg/actuation 2 puff inhalation BID #30.6 grams 10/10/24 HFA aerosol inhaler (budesonide-formoterol) vitamin B complex 1 tab PO DAILY #100 tabs 10/24/24 apixaban 5 mg tablet (Eliquis) 5 mg PO BID #60 tabs 12/28/24 Allergies Allergy/AdvReac Type Severity Reaction Status Date / Time carboplatin Allergy Severe Anaphylaxis Verified 02/04/25 09:58 Review of Systems Status of ROS: Reports: 6 or more systems reviewed and unremarkable except as noted in History and below [facility] Medical History Anemia associated with chemotherapy ?D64.81 - Anemia due to antineoplastic chemotherapy (ICD-10) ?T45.1X5A - Adverse effect of antineoplastic and immunosuppressive drugs, initial encounter (ICD-10) Non-small cell cancer of left lung (2020) ?C34.92 - Malignant neoplasm of unspecified part of left bronchus or lung (ICD-10) Internal jugular vein thrombosis ?I82.C19 - Acute embolism and thrombosis of unspecified internal jugular vein (ICD-10) Chronic 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 (ICD-10) Encounter for immunotherapy ?Z29.8 - Encounter for other specified prophylactic measures (ICD-10) Encounter for chemotherapy management ?Z51.11 - Encounter for antineoplastic chemotherapy (ICD-10) Chemotherapy induced neutropenia ?D70.1 - Agranulocytosis secondary to cancer chemotherapy (ICD-10) ?T45.1X5A - Adverse effect of antineoplastic and immunosuppressive drugs, initial encounter (ICD-10) Insomnia ?G47.00 - Insomnia, unspecified (ICD-10) PVD (peripheral vascular disease) ?I73.9 - Peripheral vascular disease, unspecified (ICD-10) Infusion reaction ?T80.90XA - Unspecified complication following infusion and therapeutic injection, initial encounter (ICD-10) 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 - Hypothyroidism due to medicaments and other exogenous substances (ICD-10) Dyspnea ?R06.00 - Dyspnea, unspecified (ICD-10) Bilateral leg cramps ?R25.2 - Cramp and spasm (ICD-10) Cervical spinal stenosis ?M48.02 - Spinal stenosis, cervical region (ICD-10) Central venous catheter in place ?Z78.9 - Other specified health status (ICD-10) Cancer associated pain ?G89.3 - Neoplasm related pain (acute) (chronic) (ICD-10) Emphysema/COPD ?J43.9 - Emphysema, unspecified (ICD-10) Dermatitis ?L30.9 - Dermatitis, unspecified (ICD-10) Colon polyp ?K63.5 - Polyp of colon (ICD-10) Tobacco use disorder ?F17.200 - Nicotine dependence, unspecified, uncomplicated (ICD-10) Surgical History S/P angioplasty with stent ?Z95.820 - Peripheral vascular angioplasty status with implants and grafts (ICD-10) S/P hernia repair ?Z98.890 - Other specified postprocedural states (ICD-10) ?Z87.19 - Personal history of other diseases of the digestive system (ICD-10) History of appendectomy ?Z90.49 - Acquired absence of other specified parts of digestive tract (ICD-10) H/O colonoscopy ?Z98.890 - Other specified postprocedural states (ICD-10) Social History Narrative: Partnered to Renetta for many years, she would be medical decision maker if needed. Worked for [employer] for many years. Smoker (down from 2ppd to 5 cigarettes/day in February 2024). Rare social ETOH. Full Code but requests no long-term intubation. What is your current living situation?: I presently have a place to live Problems where you live: no known problems Problems where you live details: none In the past 12 months, utilities in danger of being shut off: no In past 12 months, lack of transportation kept you from medical appts, meetings, work, or getting things needed for daily living: no In the past 12 mos, have been you worried that your food would run out before you had money to buy more?: never true In the past 12 mos, the food you bought just didn't last and you didn't have money to buy more?: never true Highest level of school completed/degree received: Bachelor's degree Smoking Status: Current every day smoker What tobacco products do you use: cigarettes Smoking packs per day: 0.25 Smoking cigarettes per day: 5.0 Smoking quit date/years: <= 15 years ago Do you use any of these nicotine containing products: None Second hand tobacco smoke exposure: No How often do you have a drink containing alcohol: monthly or less Alcohol type: beer, wine and hard liquor How many standard drinks containing alcohol do you have on a typical day: 1 or 2 How often do you have six or more drinks on one occasion: Never AUDIT-C Alcohol total score: 1 Non-prescribed substance use: denies use Caffeine: Yes (coffee) How often does anyone, including family, friends and others, physically hurt you: never How often does anyone, including family, friends and others, insult or talk down to you: never How often does anyone, including family, friends and others, threaten you with harm: never How often does anyone, including family, friends and others, scream or curse at you: never service: No Exam Narrative: Exam Narrative: Objective: Patient's vital signs look unremarkable He is pale He is alert orient x3 Lungs are clear Heart rhythm regular 2/6 systolic murmur Abdomen benign soft Extremities and neurologic nonfocal. Const: Vital Signs, click to edit/add: Vital Signs - 24 hr 02/04/25 09:54 02/04/25 10:48 02/04/25 10:49 Temperature 98 F Pulse Rate 74 72 Pulse Rate [Right Pulse Oximeter] 84 Respiratory Rate 18 Blood Pressure 130/58 L Blood Pressure [Ri ght Upper Arm] 110/50 L Pulse Oximetry 99 97 97 Oxygen Delivery Me thod Room Air 02/04/25 11:00 02/04/25 11:02 02/04/25 11:15 Temperature Pulse Rate 71 67 69 Pulse Rate [Right Pulse Oximeter] Respiratory Rate Blood Pressure 137/65 Blood Pressure [Ri ght Upper Arm] Pulse Oximetry 95 95 96 Oxygen Delivery Me thod 02/04/25 11:30 02/04/25 11:31 02/04/25 11:45 Temperature Pulse Rate 82 81 66 Pulse Rate [Right Pulse Oximeter] Respiratory Rate Blood Pressure 125/64 Blood Pressure [Ri ght Upper Arm] Pulse Oximetry 95 95 95 Oxygen Delivery Me thod 02/04/25 12:00 02/04/25 12:02 02/04/25 12:21 Temperature Pulse Rate 62 72 67 Pulse Rate [Right Pulse Oximeter] Respiratory Rate Blood Pressure 116/50 L Blood Pressure [Ri ght Upper Arm] Pulse Oximetry 94 93 95 Oxygen Delivery Me thod 02/04/25 12:23 02/04/25 12:30 02/04/25 12:31 Temperature 98.3 F Pulse Rate 64 63 65 Pulse Rate [Right Pulse Oximeter] Respiratory Rate 14 Blood Pressure 127/58 L 126/67 Blood Pressure [Ri ght Upper Arm] Pulse Oximetry 96 95 97 Oxygen Delivery Me thod Room Air 02/04/25 12:32 02/04/25 12:45 02/04/25 12:47 Temperature 98.4 F Pulse Rate 64 61 62 Pulse Rate [Right Pulse Oximeter] Respiratory Rate 20 Blood Pressure 126/67 139/64 Blood Pressure [Ri ght Upper Arm] Pulse Oximetry 97 94 97 Oxygen Delivery Me thod 02/04/25 12:51 02/04/25 13:01 02/04/25 13:02 Temperature Pulse Rate 64 68 74 Pulse Rate [Right Pulse Oximeter] Respiratory Rate Blood Pressure 139/64 133/66 Blood Pressure [Ri ght Upper Arm] Pulse Oximetry 96 96 95 Oxygen Delivery Me thod 02/04/25 13:17 02/04/25 13:47 02/04/25 14:08 Temperature 98.2 F 97.9 F 98.2 F Pulse Rate 66 60 70 Pulse Rate [Right Pulse Oximeter] Respiratory Rate 16 20 16 Blood Pressure 142/68 H 129/53 L 134/72 Blood Pressure [Ri ght Upper Arm] Pulse Oximetry 96 97 98 Oxygen Delivery Me thod Room Air Room Air Room Air Course Vital Signs Vital signs: Initial Vital Signs Temperature 98 F 02/04/25 09:54 Temperature Source Temporal Artery Scan 02/04/25 09:54 Pulse Rate 84 02/04/25 09:54 Pulse Rhythm Regular 02/04/25 09:54 Pulse Strength 3+ Normal 02/04/25 09:54 Respiratory Rate 18 02/04/25 09:54 Blood Pressure 110/50 L 02/04/25 09:54 Blood Pressure Mean 70 02/04/25 09:54 Blood Pressure Position Sitting 02/04/25 09:54 Pulse Oximetry 99 02/04/25 09:54 Oxygen Delivery Method Room Air 02/04/25 09:54 Vital Signs Temperature 98 F 02/04/25 09:54 Pulse Rate 84 02/04/25 09:54 Respiratory Rate 18 02/04/25 09:54 Blood Pressure 110/50 L 02/04/25 09:54 Pulse Oximetry 99 02/04/25 09:54 Oxygen Delivery Method Room Air 02/04/25 09:54 Temperature 98.2 F 02/04/25 14:08 Pulse Rate 70 02/04/25 14:08 Respiratory Rate 16 02/04/25 14:08 Blood Pressure 134/72 02/04/25 14:08 Pulse Oximetry 98 02/04/25 14:08 Oxygen Delivery Method Room Air 02/04/25 14:08 Medications Administered Medications: Generic Name Dose Route Start Last Admin Trade Name Freq PRN Reason Stop Dose Admin Albuterol 2 puff 02/04/25 11:37 02/04/25 12:13 Albuterol Inhaler IH 2 puff Q4H PRN Administration Medical Decision Making MDM Narrative Medical decision making narrative: [age] white male with non-small cell carcinoma on palliative care, presented for a dental preop and had a hemoglobin of 6. We will check his hemoglobin again, given his symptom a symptomatic nature, will transfuse 2 units and then along to go home. He would like to try and feel better over the next few weeks during the holiday season. I think that is reasonable. We will determine whether he will get his transfusion the ER or on the hospital floor. Recheck his hemoglobin type and cross and 2 packed units will be given. He has had transfusions before and has not had difficulty with these. Addendum Leiva 30 a.m.: The patient's hemoglobin is 6.7. Even though he has a palliative patient I think he would feel better if he had a transfusion he wishes to proceed. Will give him 2 units and then he can be discharged home. Will follow up with regular physicians as planned. The patient is in a process of getting his 2 units of blood and then he will be discharged home as described. Again this is for comfort care and I think will be somewhat pale eat of over the next few weeks hopefully he will follow-up with his primary care doctor and his oncologist as needed. Lab Data Labs: Lab Results 02/04/25 Range/Units 10:47 WBC 6.34 (4.50-11.00) K/uL RBC 3.50 L (4.30-5.90) m/uL Hgb 6.7 L* (13.5-17.5) gm/dL Hct 24.6 L (37.0-53.0) % MCV 70 L (80-100) fL MCH 19 L (26-34) pg MCHC 27 L (32-36) gm/dL RDW Coeff of Jolie 19.4 H (11.5-15.5) % Plt Count 251 (140-440) K/uL Neut % (Auto) 60.4 (42.0-72.0) % Lymph % (Auto) 17.8 L (20-44) % Grundy % (Auto) 8.8 (0.0-11.0) % Eos % (Auto) 11.4 H (0.0-7.0) % Baso % (Auto) 1.6 (0.0-3.0) % Neut # (Auto) 3.83 (1.7-7.0) K/uL Lymph # (Auto) 1.10 (0.90-2.90) K/uL Grundy # (Auto) 0.60 (0.00-0.90) K/UL Eos # (Auto) 0.70 H (0.00-0.50) K/uL Baso # (Auto) 0.10 (0.00-0.30) K/uL Abs Immat Gran (auto) 0.00 (0.00-0.30) K/uL Imm/Tot Granulo (auto) 0.0 % Blood Type B Negative Antibody Screen NEGATIVE Crossmatch (AHG) See Detail Discharge Plan Discharge Clinical Impression: Anemia, Non-small cell cancer of left lung Patient Disposition: Home w/ Parent or Adult Condition: Improved Additional Instructions: Follow-up with Oncology and primary care as scheduled. Activity Level: Light activity Discharge Diet: Regular Prescriptions: No Action famotidine [Pepcid] 20 mg tablet 20 mg PO BID Qty: 180 3RF albuterol sulfate [Ventolin HFA] 90 mcg/actuation HFA aerosol inhaler 2 inh inhalation Q4H PRN (Reason: shortness of breath or wheezing) Qty: 8.5 0RF Flonase Sensimist 27.5 mcg/actuation spray,suspension 2 spray intranasal BID Rx Instructions: into each nostril folic acid 1 mg tablet 1 mg PO DAILY Qty: 90 3RF prochlorperazine maleate [Compazine] 5 mg tablet 5 mg PO TID PRN (Reason: nausea and vomiting) Qty: 90 0RF magnesium oxide 400 mg (241.3 mg magnesium) tablet 400 mg PO BID Qty: 100 3RF methylphenidate HCl [Ritalin] 10 mg tablet 10 mg PO BID morphine 10 mg/5 mL solution 2.6 - 5 mg PO Q3H PRN (Reason: dyspnea) gabapentin 300 mg capsule PO Eliquis 5 mg tablet 5 mg PO BID Qty: 60 1RF levothyroxine 125 mcg tablet 125 mcg PO DAILY Qty: 90 3RF pantoprazole 40 mg tablet,delayed release (DR/EC) 40 mg PO BID Qty: 60 1RF budesonide-formoterol [Symbicort] 80-4.5 mcg/actuation HFA aerosol inhaler 2 puff inhalation BID Qty: 30.6 1RF vitamin B complex Tablet 1 tab PO DAILY Qty: 100 3RF Follow Up/Referrals: Mikal Gunter MD [Primary Care Provider, Family Practice] [facility] Inst[facility]
[2025-02-04 10:55] LABS: Hematocrit* 24.6 % (37.0-53.0); Immature Granulocytes Abs Auto 0.00 K/uL (0.00-0.30); Immature Granulocytes Pct Auto 0.0 %; Mean Corpuscular HGB Conc 27 gm/dL (32-36); Mean Corpuscular Hemoglobin 19 pg (26-34); Mean Corpuscular Volume 70 fL (80-100); RDW Coefficient of Variation % 19.4 % (11.5-15.5); Red Blood Count* 3.50 m/uL (4.30-5.90); White Blood Count* 6.34 K/uL (4.50-11.00)
[2025-02-04 11:02] LABS: Hemoglobin* 6.7 gm/dL (13.5-17.5); Lymphocytes Absolute Auto 1.10 K/uL (0.90-2.90); Slide Review Reflex No
[2025-02-04] MEDS: ALBUTEROL INHALER 2 PUFF IH (12:13)
[2025-02-04] MEDS: HEPARIN 500 UNIT/5 ML SYRINGE IVF (16:12)
== END 2025-02-04 17:11 | disposition home or self-care (01) ==
PROVIDERS: Emergency Provider Family Medicine; PCP Family Medicine
DX: C34.92 Malignant neoplasm of unspecified part of left bronchus or lung (principal); D64.81 Anemia due to antineoplastic chemotherapy; F17.210 Nicotine dependence, cigarettes, uncomplicated; Z79.01 Long term (current) use of anticoagulants
CPT/HCPCS: 36415; 36430; 85025; 86850; 86900; 86901; 86922; 99284; 99285; A9270; J1642; P9016